=== PATIENT | male | born 1990 | race Hispanic/Latino ===

== ENCOUNTER 2017-04-28 07:34 | Outpatient (CLI) | payer OTHER ==
[2017-04-28] MEDS ORDERED: PROVENTIL IH ONE (07:57)
== END 2017-04-28 07:35 | disposition home or self-care (01) ==
LOC: PF 07:34
PROVIDERS: ATTEND Internal Medicine
DX: I10 Essential (primary) hypertension (principal); E66.9 Obesity, unspecified; R06.02 Shortness of breath; F17.200 Nicotine dependence, unspecified, uncomplicated
CPT/HCPCS: 94060; 94640

== ENCOUNTER 2017-08-06 13:11 | Outpatient (CLI) | payer OTHER, MEDICAID ==
--- NOTE | 2017-08-06 14:19 | XRay Report ---
CHEST XRAY, 2 VIEWS: History: Obesity, hypoxia. Findings: There is mild cardiomegaly. Pulmonary vessels are within normal limits. The lungs are clear and fully expanded. No infiltrate, pleural effusion or pneumothorax. Normal thoracic cage. IMPRESSION: Mild cardiomegaly. Lungs clear.
== END 2017-08-06 13:12 | disposition home or self-care (01) ==
LOC: XRAY 13:11
PROVIDERS: ATTEND Internal Medicine Critical Care Medicine
DX: I51.7 Cardiomegaly (principal); E66.2 Morbid (severe) obesity with alveolar hypoventilation; R09.02 Hypoxemia
CPT/HCPCS: 71046; 82803

== ENCOUNTER 2017-08-07 16:13 | Inpatient (IN) | payer MEDICAID, OTHER ==
[2017-08-07] MEDS ORDERED: NACL 0.9% 500 ML 500 ML IV ONE ×2 (16:30→23:31)
[2017-08-07] MEDS ORDERED: TYLENOL PO ONE (16:31)
[2017-08-07] MEDS ORDERED: TYLENOL ONE (16:33)
[2017-08-07] MEDS ORDERED: ROCEPHIN/NS 2 GM/100 ML 2 GM/100 ML BAG IV ONE (16:44)
[2017-08-07] MEDS ORDERED: PROVENTIL IH ONE (16:45)
[2017-08-07] MEDS ORDERED: ATROVENT IH ONE (16:45)
--- NOTE | 2017-08-07 16:54 | Emergency Department Report ---
ED Shortness of Breath HPI - General Chief Complaint: Fever Stated Complaint: FLU LIKE SYMPTOMS/GENEVIEVE Time Seen by Provider: 08/07/17 16:38 Source: patient Mode of arrival: Wheelchair Limitations: No Limitations - History of Present Illness Initial Comments: Patient is a 26-year-old male with a past medical history of extreme morbid obesity diabetes asthma and lymphedema who is presenting with respiratory distress. The patient states for the past 2 days he has had increased cough congestion and some left-sided chest discomfort and fever. Patient has a productive cough of clear white sputum. Patient also is complaining of chills. Patient's family states that he is gained 78 pounds in the last 2 weeks and is retaining fluid as well. Patient was seen at urgent care several days ago and was discharged with no medications and was told that he was doing okay and this most likely he was having a viral issue. Patient was seen yesterday by primary care physician and a chest x-ray and ABG was performed yesterday. Patient states the shortness of breath worsened over the last 24 hours and is comfortable in the department at triage she was 78% on room air and was brought directly back. Patient also was tachycardic with a temperature 101.7. Patient's other complete other complaint is body aches all over. - Related Data Previous Rx's Medication Instructions Recorded Last Taken Type Acetaminophen/Codeine 1 tab PO Q6H PRN #20 tab 04/28/14 Unknown Rx [Acetaminophen-Codeine #3 TAB] Cephalexin [Keflex] 500 mg PO TID #30 capsule 04/28/14 Unknown Rx Sulfamethoxazole/Trimethoprim 1 each PO BID #20 tablet 04/28/14 Unknown Rx [Bactrim Ds] Allergies Allergy/AdvReac Type Severity Reaction Status Date / Time vancomycin Allergy Hives Verified 08/07/17 16:25 ED Review of Systems ROS: Stated complaint: FLU LIKE SYMPTOMS/GENEVIEVE Other details as noted in HPI Comment: All other systems reviewed and negative ED Past Medical Hx - Past Medical History Previous Medical History?: Yes Hx Diabetes: Yes (possible borderline DM) Hx Asthma: Yes Additional medical history: morbidly obese - Surgical History Past Surgical History?: No - Social History Smoking Status: Current Every Day Smoker Substance Use Type: None - Medications Home Medications: Home Medications Medication Instructions Recorded Confirmed Last Taken Type Acetaminophen/Codeine 1 tab PO Q6H PRN #20 tab 04/28/14 Unknown Rx [Acetaminophen-Codeine #3 TAB] Cephalexin [Keflex] 500 mg PO TID #30 capsule 04/28/14 Unknown Rx Sulfamethoxazole/Trimethoprim 1 each PO BID #20 tablet 04/28/14 Unknown Rx [Bactrim Ds] ED Physical Exam - General Limitations: No Limitations General appearance: alert, in distress, obese - Head Head exam: Present: atraumatic, normocephalic - Eye Eye exam: Present: normal appearance - ENT ENT exam: Present: mucous membranes moist - Neck Neck exam: Present: normal inspection - Respiratory Respiratory exam: Present: respiratory distress, wheezes, rhonchi, prolonged expiratory. Absent: normal lung sounds bilaterally, rales, stridor - Cardiovascular Cardiovascular Exam: Present: normal rhythm, tachycardia. Absent: systolic murmur, diastolic murmur, rubs, gallop - GI/Abdominal GI/Abdominal exam: Present: soft, distended, normal bowel sounds. Absent: tenderness, guarding, rebound - Rectal Rectal exam: Present: deferred - Extremities Exam Extremities exam: Present: other (bilateral 3+ edema with extreme swelling with Unna boots in place. Patient's family states he has does have some weeping sores on the legs) - Back Exam Back exam: Present: normal inspection - Neurological Exam Neurological exam: Present: alert, oriented X3 - Psychiatric Psychiatric exam: Present: normal affect, normal mood - Skin Skin exam: Present: warm, dry, intact, normal color. Absent: rash ED Course Vital Signs 08/07/17 16:25 Temperature 101.7 F H Pulse Rate 123 H Respiratory 24 Rate Blood Pressure 128/44 O2 Sat by Pulse 78 L Oximetry ED Medical Decision Making - Lab Data Result diagrams: 08/07/17 16:58 08/07/17 16:58 Lab Results 08/07/17 08/07/17 08/07/17 Range/Units 16:58 16:58 16:58 WBC 16.1 H (4.5-11.0) K/mm3 RBC 5.44 H (3.65-5.03) M/mm3 Hgb 11.9 (11.8-15.2) gm/dl Hct 40.4 (35.5-45.6) % MCV 74 L (84-94) fl MCH 22 L (28-32) pg MCHC 29 L (32-34) % RDW 21.7 H (13.2-15.2) % Plt Count 269 (140-440) K/mm3 Seg Neutrophils % Registered Representative PT 16.2 H (12.2-14.9) Sec. INR 1.23 H (0.87-1.13) VBG pH (7.320-7.420) Sodium 138 (137-145) mmol/L Potassium 4.1 (3.6-5.0) mmol/L Chloride 96.2 L (98-107) mmol/L Carbon Dioxide 31 H (22-30) mmol/L Anion Gap 15 mmol/L BUN 14 (9-20) mg/dL Creatinine 1.1 (0.8-1.5) mg/dL Estimated GFR > 60 ml/min BUN/Creatinine Ratio 13 % Glucose 97 (75-100) mg/dL Lactic Acid (0.7-2.0) mmol/L Calcium 8.6 (8.4-10.2) mg/dL Total Bilirubin 0.80 (0.1-1.2) mg/dL AST 18 (5-40) units/L ALT 20 (7-56) units/L Alkaline Phosphatase 84 (35-129) units/L Total Protein 5.8 L (6.3-8.2) g/dL Albumin 3.0 L (3.9-5) g/dL Albumin/Globulin Ratio 1.1 % 08/07/17 08/07/17 Range/Units 16:58 16:58 WBC (4.5-11.0) K/mm3 RBC (3.65-5.03) M/mm3 Hgb (11.8-15.2) gm/dl Hct (35.5-45.6) % MCV (84-94) fl MCH (28-32) pg MCHC (32-34) % RDW (13.2-15.2) % Plt Count (140-440) K/mm3 Seg Neutrophils % PT (12.2-14.9) Sec. INR (0.87-1.13) VBG pH 7.463 H (7.320-7.420) Sodium (137-145) mmol/L Potassium (3.6-5.0) mmol/L Chloride (98-107) mmol/L Carbon Dioxide (22-30) mmol/L Anion Gap mmol/L BUN (9-20) mg/dL Creatinine (0.8-1.5) mg/dL Estimated GFR ml/min BUN/Creatinine Ratio % Glucose (75-100) mg/dL Lactic Acid 2.10 H* (0.7-2.0) mmol/L Calcium (8.4-10.2) mg/dL Total Bilirubin (0.1-1.2) mg/dL AST (5-40) units/L ALT (7-56) units/L Alkaline Phosphatase (35-129) units/L Total Protein (6.3-8.2) g/dL Albumin (3.9-5) g/dL Albumin/Globulin Ratio % - EKG Data -: EKG Interpreted by Me EKG shows normal: axis, intervals, QRS complexes, ST-T waves Rate: tachycardia - EKG Data Interpretation: other (sinus tachycardia time of interpretation 1638) - Radiology Data Radiology results: image reviewed interpreted by me: Bibasilar infiltrates and cardiomegaly - Medical Decision Making Patient is a 26-year-old male who is presenting with fever and chest discomfort cough shortness of breath hypoxia. Patient's oxygenation is much improved on 2 L of oxygen. Patient does have infiltrates in the lung as well as an elevated white count and lactic acid level. Patient will be admitted to the hospital on the sepsis protocol of Dr. Perkins Critical Care Time: Yes Critical care time in (mins) excluding proc time.: 30 Critical care attestation.: If time is entered above; I have spent that time in minutes in the direct care of this critically ill patient, excluding procedure time. ED Disposition Clinical Impression: Hypoxia, Lymphedema Pneumonia Qualifiers: Pneumonia type: due to unspecified organism Laterality: bilateral Lung location : lower lobe of lung Qualified Code(s): J18.9 - Pneumonia, unspecified organism Sepsis Qualifiers: Sepsis type: sepsis due to unspecified organism Qualified Code(s): A41.9 - Sepsis, unspecified organism Disposition: OP ADMIT IP TO THIS HOSP Is pt being admited?: Yes Does the pt Need Aspirin: No Condition: Stable Instructions: Bacterial Pneumonia (ED)
[2017-08-07] MEDS ORDERED: NACL 0.9% 1000 ML IV ONE (16:59)
[2017-08-07 17:18] LABS: Mean Corpuscular HGB Conc 29 % (32-34); Mean Corpuscular Volume 74 fl (84-94); Platelet Count 269 K/mm3 (140-440); Red Blood Count 5.44 M/mm3 (3.65-5.03)
[2017-08-07 17:22] LABS: Hematocrit 40.4 % (35.5-45.6); Hemoglobin 11.9 gm/dl (11.8-15.2); Mean Corpuscular Hemoglobin 22 pg (28-32); Red Cell Distribution Width 21.7 % (13.2-15.2)
[2017-08-07 17:28] LABS: INR 1.23 (0.87-1.13)
[2017-08-07 17:41] LABS: Alanine Aminotransferase 20 units/L (7-56); BUN/Creatinine Ratio 13; Blood Urea Nitrogen 14 mg/dL (9-20); Calcium 8.6 mg/dL (8.4-10.2); Hemolysis Index 10
[2017-08-07] MEDS ORDERED: cefTRIAXone 2 GM in NACL 0.9% 20 ML IV ONE (18:00)
[2017-08-07] MEDS ORDERED: LEVAQUIN 750MG/150ML 750 MG/150 ML BAG IV ONE (18:16)
--- NOTE | 2017-08-07 18:32 | XRay Report ---
FINAL REPORT EXAM: XR CHEST 1V AP HISTORY: possible Sepsis TECHNIQUE: Frontal chest x-ray performed portably and upright Comparison: None FINDINGS: Exam is under penetrated. Heart size is mildly enlarged. AP window is obscured which may be positional. There is mild opacity in the left lung base with silhouetting of the medial left hemidiaphragm. Posterior costophrenic sulci cannot be assessed. There is minimal pulmonary vascular congestion. IMPRESSION: Incompletely penetrated portable exam. Mild cardiomegaly. Fullness of the AP window. Lung bases incompletely assessed. Left basilar consolidation may be present. Recommend follow-up two view chest.
[2017-08-07 18:39] LABS: Band Neutrophils # (Manual) 0.2 K/mm3; Eosinophils % (Manual) 0 % (0.0-4.3); Total Cells Counted 100
[2017-08-07 18:43] LABS: Anisocytosis 1+
[2017-08-07 18:44] LABS: Hypochromasia 1+; Platelet Estimate Consistent w Auto; Poikilocytosis 1+
--- NOTE | 2017-08-07 19:12 | History and Physical Report ---
History of Present Illness Chief complaint: I cant breathe History of present illness: 26 YO Male with Super Morbid Obeisty, DM, Asthma, Nicotine Dependence, Lymphedema, presents to ED for evaluation. Pt states that he has experienced shortness of breath, productive cough of clear sputum, subjective fever, and nasal congestion over the past 2 days with progressively worsening symptoms over that same time frame. Patient also is complaining of chills, as well as 78 pound weight gain in the past 2 week. Patient was seen at urgent care several days ago and was discharged with diagnosis of viral pharyngitis. Patient states the shortness of breath worsened over the last 24 hours. Pt seen and evaluted in ED and found to have fever to 101.7, Acute Respiratory Failure, as well as LLL Pneumonia. Pt treated with supplemental oxygen, nebulizer therapy , and pneumonia protocol. Pt admitted to medical floor. No reports of leg pain/ calf pain, prolonged travel/immobility, trauma, cancer, individual/family history of DVT/PE. Past History Past Medical History: diabetes, other (Asthma, Lymphedema) Past Surgical History: No surgical history, Other (reviewed) Social history: single, smoking. denies: alcohol abuse, prescription drug abuse Family history: hypertension Medications and Allergies Allergies Allergy/AdvReac Type Severity Reaction Status Date / Time vancomycin Allergy Hives Verified 08/07/17 16:25 Home Medications Medication Instructions Recorded Confirmed Last Taken Type Acetaminophen/Codeine 1 tab PO Q6H PRN #20 tab 04/28/14 Unknown Rx [Acetaminophen-Codeine #3 TAB] Cephalexin [Keflex] 500 mg PO TID #30 capsule 04/28/14 Unknown Rx Sulfamethoxazole/Trimethoprim 1 each PO BID #20 tablet 04/28/14 Unknown Rx [Bactrim Ds] Active Meds: Active Medications Levofloxacin/Dextrose (Levaquin 750mg/150ml) 750 mg in 150 mls @ 100 mls/hr IV ONCE ONE Stop: 08/07/17 19:45 Review of Systems Constitutional: weight gain, fever, chills Ears, nose, mouth and throat: no ear pain, no ear discharge, no tinnitis, no decreased hearing, no nose pain, no nasal congestion Cardiovascular: shortness of breath, no chest pain, no orthopnea, no dyspnea on exertion, no paroxysmal nocturnal dyspnea Respiratory: cough, congestion, no hemoptysis, no dyspnea on exertion Gastrointestinal: no abdominal pain, no nausea, no vomiting, no diarrhea Genitourinary Male: no hematuria, no flank pain, no discharge, no urinary frequency, no urinary hesitancy Rectal: no pain, no incontinence, no bleeding Musculoskeletal: no neck stiffness, no neck pain, no shooting arm pain, no arm numbness/tingling, no low back pain, no shooting leg pain Integumentary: no rash, no pruritis, no redness, no sores, no wounds Neurological: no transient paralysis, no paralysis, no weakness, no parathesias , no numbness, no tingling, no seizures, no syncope, no tremors Psychiatric: no anxiety, no change in sleep habits, no sleep disturbances, no insomnia, no hypersomnia, no change in appetite Endocrine: no cold intolerance, no heat intolerance, no polyphagia, no excessive thirst, no polydipsia, no polyuria, no nocturia Hematologic/Lymphatic: lymphedema, no easy bruising, no easy bleeding Allergic/Immunologic: no urticaria, no allergic rhinitis, no wheezing Exam - Constitutional Vitals: Temp Pulse Resp BP Pulse Ox 101.7 F H 123 H 24 128/44 78 L 08/07/17 16:25 08/07/17 16:25 08/07/17 16:25 08/07/17 16:25 08/07/17 16:25 General appearance: Present: mild distress, obese - EENT Eyes: Present: PERRL ENT: hearing intact, clear oral mucosa - Neck Neck: Present: supple, normal ROM - Respiratory Respiratory effort: labored Respiratory: bilateral: diminished, rhonchi - Cardiovascular Heart Sounds: Present: S1 & S2. Absent: rub, click - Extremities Extremities: pulses symmetrical, No edema Extremity abnormal: edema, deformity Peripheral Pulses: within normal limits - Abdominal General gastrointestinal: Present: soft, non-tender, non-distended, normal bowel sounds Male genitourinary: Present: normal - Integumentary Integumentary: Present: clear, warm, dry - Musculoskeletal Musculoskeletal: generalized weakness - Psychiatric Psychiatric: appropriate mood/affect, intact judgment & insight - Neurologic Neurologic: CNII-XII intact, moves all extremities Results - Labs CBC & Chem 7: 08/07/17 16:58 08/07/17 16:58 Labs: Abnormal lab results 0208/07/17 08/07/17 Range/Units 16:58 16:58 16:58 WBC 16.1 H (4.5-11.0) K/mm3 RBC 5.44 H (3.65-5.03) M/mm3 MCV 74 L (84-94) fl MCH 22 L (28-32) pg MCHC 29 L (32-34) % RDW 21.7 H (13.2-15.2) % Seg Neuts % (Manual) 87.0 H (40.0-70.0) % Lymphocytes % (Manual) 7.0 L (13.4-35.0) % Basophils % (Manual) 2.0 H (0.0-1.8) % Seg Neutrophils # Man 14.0 H (1.8-7.7) K/mm3 Lymphocytes # (Manual) 1.1 L (1.2-5.4) K/mm3 Basophils # (Manual) 0.3 H (0.0-0.1) K/mm3 PT 16.2 H (12.2-14.9) Sec. INR 1.23 H (0.87-1.13) VBG pH (7.320-7.420) Chloride 96.2 L (98-107) mmol/L Carbon Dioxide 31 H (22-30) mmol/L Lactic Acid (0.7-2.0) mmol/L Total Protein 5.8 L (6.3-8.2) g/dL Albumin 3.0 L (3.9-5) g/dL 08/07/17 08/07/17 Range/Units 16:58 16:58 WBC (4.5-11.0) K/mm3 RBC (3.65-5.03) M/mm3 MCV (84-94) fl MCH (28-32) pg MCHC (32-34) % RDW (13.2-15.2) % Seg Neuts % (Manual) (40.0-70.0) % Lymphocytes % (Manual) (13.4-35.0) % Basophils % (Manual) (0.0-1.8) % Seg Neutrophils # Man (1.8-7.7) K/mm3 Lymphocytes # (Manual) (1.2-5.4) K/mm3 Basophils # (Manual) (0.0-0.1) K/mm3 PT (12.2-14.9) Sec. INR (0.87-1.13) VBG pH 7.463 H (7.320-7.420) Chloride (98-107) mmol/L Carbon Dioxide (22-30) mmol/L Lactic Acid 2.10 H* (0.7-2.0) mmol/L Total Protein (6.3-8.2) g/dL Albumin (3.9-5) g/dL Assessment and Plan - Patient Problems (1) Sepsis Current Visit: Yes Status: Acute Qualifiers: Sepsis type: sepsis due to unspecified organism Qualified Code(s): A41.9 - Sepsis, unspecified organism Plan to address problem: IV abx, IVF resuscitation, serial lactic acid, blood cultures, monitor uop q shift, Chest X ray, urinalysis (2) Pneumonia Current Visit: Yes Status: Acute Qualifiers: Laterality: left Lung location: lower lobe of lung Plan to address problem: IV abx, nebulizer thrapy, NIPPV as clinically indicated, supplemental oxygen, (3) Acute respiratory failure with hypoxia Current Visit: Yes Status: Acute Plan to address problem: Supplemental oxygen, nebulizer therapy, incentive spirometry, ambulate TID prn, NIPPV as clinically indicated. (4) Lymphedema Current Visit: Yes Status: Acute Plan to address problem: Wound care consult, continue dressing care, (5) DVT prophylaxis Current Visit: Yes Status: Acute
[2017-08-07] MEDS ORDERED: MILK OF MAGNESIA PO PRN (19:14)
[2017-08-07] MEDS ORDERED: ZOFRAN IV PRN (19:14)
[2017-08-07] MEDS ORDERED: DULCOLAX PR PRN (19:14)
[2017-08-07] MEDS: ZITHROMAX 500 MG in NACL 0.9% 250ML 250 ML IV SCH (21:41)
[2017-08-08] MEDS: NACL 0.9% 1000 ML 1,000 ML IV SCH ×2 (04:51→23:33)
[2017-08-08] MEDS ORDERED: ROCEPHIN/NS 2 GM/100 ML 2 GM/100 ML BAG IV SCH (10:00)
--- NOTE | 2017-08-08 10:38 | Progress Note ---
Assessment and Plan Assessment and plan: --Acute hypoxic respiratory failure; Oxygen titrated to O2 sats more than 90%, nebulizers, IV antibiotics, BiPAP as needed, IV steroids --Congestive heart failure; unknown ejection fraction, probably diastolic dysfunction, obtain echocardiogram --Left lower lobe pneumonia/atelectasis; empiric antibiotics, oxygen and supportive care, follow cultures --Sepsis; continue empiric antibiotics, follow cultures, IV fluids --Lactic acidosis; continue IV fluids, IV antibiotics, follow levels --Possible obstructive sleep apnea; patient may need outpatient sleep studies, BiPAP at night --Chronic massive lymphedema; supportive care, wound care and lymphedema case as needed --Morbid obesity; BMI of 82; counseling done, patient may benefit from bariatric surgical consultation or weight reduction program when medically stable --DVT prophylaxis; Lovenox Closely monitor the patient and adjust management as needed Plan of care discussed with the patient and his nurse I also discussed with the family member uncle at the bedside Had numerous questions, answered all of them History Interval history: Patient seen and evaluated in room this morning medical records reviewed Admitted with flulike symptoms and left-sided pneumonia On IV antibiotics Patient denies any chest pain or shortness of breath Morbid obese 26-year-old male patient with chronic lymphedema Sitting in the chair in mild distress Vital signs reviewed Hospitalist Physical - Constitutional Vitals: Temp Pulse Resp BP Pulse Ox 98.6 F 79 18 108/53 95 08/08/17 07:33 08/08/17 07:33 08/08/17 07:33 08/08/17 07:33 08/08/17 07:33 General appearance: Present: mild distress, obese (morbidly obese), other - EENT Eyes: Present: PERRL, EOM intact - Neck Neck: Present: supple, normal ROM - Respiratory Respiratory effort: normal Respiratory: bilateral: diminished, rhonchi, negative: rales, wheezing - Cardiovascular Rhythm: regular Heart Sounds: Present: S1 & S2 - Extremities Extremities: abnormal (massive lymphedema of bilateral lower extremities) Extremity abnormal: edema, erythema - Abdominal General gastrointestinal: soft, non-tender, non-distended, normal bowel sounds - Integumentary Integumentary: Present: clear, warm - Psychiatric Psychiatric: appropriate mood/affect, cooperative - Neurologic Neurologic: CNII-XII intact, moves all extremities Results - Labs CBC & Chem 7: 08/07/17 16:58 08/07/17 16:58 Labs: Laboratory Last Values WBC 16.1 K/mm3 (4.5-11.0) H 08/07/17 16:58 RBC 5.44 M/mm3 (3.65-5.03) H 08/07/17 16:58 Hgb 11.9 gm/dl (11.8-15.2) 08/07/17 16:58 Hct 40.4 % (35.5-45.6) 08/07/17 16:58 MCV 74 fl (84-94) L 08/07/17 16:58 MCH 22 pg (28-32) L 08/07/17 16:58 MCHC 29 % (32-34) L 08/07/17 16:58 RDW 21.7 % (13.2-15.2) H 08/07/17 16:58 Plt Count 269 K/mm3 (140-440) 08/07/17 16:58 Add Manual Diff Complete 08/07/17 16:58 Total Counted 100 08/07/17 16:58 Seg Neutrophils % Lead Systems Engineer 08/07/17 16:58 Seg Neuts % (Manual) 87.0 % (40.0-70.0) H 08/07/17 16:58 Band Neutrophils % 1.0 % 08/07/17 16:58 Lymphocytes % (Manual) 7.0 % (13.4-35.0) L 08/07/17 16:58 Reactive Lymphs % (Man) 0 % 08/07/17 16:58 Monocytes % (Manual) 3.0 % (0.0-7.3) 08/07/17 16:58 Eosinophils % (Manual) 0 % (0.0-4.3) 08/07/17 16:58 Basophils % (Manual) 2.0 % (0.0-1.8) H 08/07/17 16:58 Metamyelocytes % 0 % 08/07/17 16:58 Myelocytes % 0 % 08/07/17 16:58 Promyelocytes % 0 % 08/07/17 16:58 Blast Cells % 0 % 08/07/17 16:58 Nucleated RBC % Not Reportable 08/07/17 16:58 Seg Neutrophils # Man 14.0 K/mm3 (1.8-7.7) H 08/07/17 16:58 Band Neutrophils # 0.2 K/mm3 08/07/17 16:58 Lymphocytes # (Manual) 1.1 K/mm3 (1.2-5.4) L 08/07/17 16:58 Abs React Lymphs (Man) 0.0 K/mm3 08/07/17 16:58 Monocytes # (Manual) 0.5 K/mm3 (0.0-0.8) 08/07/17 16:58 Eosinophils # (Manual) 0.0 K/mm3 (0.0-0.4) 08/07/17 16:58 Basophils # (Manual) 0.3 K/mm3 (0.0-0.1) H 08/07/17 16:58 Metamyelocytes # 0.0 K/mm3 08/07/17 16:58 Myelocytes # 0.0 K/mm3 08/07/17 16:58 Promyelocytes # 0.0 K/mm3 08/07/17 16:58 Blast Cells # 0.0 K/mm3 08/07/17 16:58 WBC Morphology Not Reportable 08/07/17 16:58 Hypersegmented Neuts Not Reportable 08/07/17 16:58 Hyposegmented Neuts Not Reportable 08/07/17 16:58 Hypogranular Neuts Not Reportable 08/07/17 16:58 Smudge Cells Not Reportable 08/07/17 16:58 Toxic Granulation Not Reportable 08/07/17 16:58 Toxic Vacuolation Not Reportable 08/07/17 16:58 Dohle Bodies Not Reportable 08/07/17 16:58 Pelger-Huet Anomaly Not Reportable 08/07/17 16:58 Noa Rods Not Reportable 08/07/17 16:58 Platelet Estimate Consistent w auto 08/07/17 16:58 Clumped Platelets Not Reportable 08/07/17 16:58 Plt Clumps, EDTA Not Reportable 08/07/17 16:58 Large Platelets Not Reportable 08/07/17 16:58 Giant Platelets Not Reportable 08/07/17 16:58 Platelet Satelliting Not Reportable 08/07/17 16:58 Plt Morphology Comment Not Reportable 08/07/17 16:58 RBC Morphology Not Reportable 08/07/17 16:58 Dimorphic RBCs Not Reportable 08/07/17 16:58 Polychromasia Not Reportable 08/07/17 16:58 Hypochromasia 1+ 08/07/17 16:58 Poikilocytosis 1+ 08/07/17 16:58 Anisocytosis 1+ 08/07/17 16:58 Microcytosis Not Reportable 08/07/17 16:58 Macrocytosis Not Reportable 08/07/17 16:58 Spherocytes Not Reportable 08/07/17 16:58 Pappenheimer Bodies Not Reportable 08/07/17 16:58 Sickle Cells Not Reportable 08/07/17 16:58 Target Cells Not Reportable 08/07/17 16:58 Tear Drop Cells Not Reportable 08/07/17 16:58 Ovalocytes Not Reportable 08/07/17 16:58 Helmet Cells Not Reportable 08/07/17 16:58 [place] Bodies Not Reportable 08/07/17 16:58 [place] Rings Not Reportable 08/07/17 16:58 [place] Cells Not Reportable 08/07/17 16:58 Bite Cells Not Reportable 08/07/17 16:58 Crenated Cell Not Reportable 08/07/17 16:58 Elliptocytes Not Reportable 08/07/17 16:58 Acanthocytes (Spur) Not Reportable 08/07/17 16:58 Rouleaux Not Reportable 08/07/17 16:58 Hemoglobin C Crystals Not Reportable 08/07/17 16:58 Schistocytes Not Reportable 08/07/17 16:58 Malaria parasites Not Reportable 08/07/17 16:58 Cuco Bodies Not Reportable 08/07/17 16:58 Hem Pathologist Commnt No 08/07/17 16:58 PT 16.2 Sec. (12.2-14.9) H 08/07/17 16:58 INR 1.23 (0.87-1.13) H 08/07/17 16:58 VBG pH 7.463 (7.320-7.420) H 08/07/17 16:58 Sodium 138 mmol/L (137-145) 08/07/17 16:58 Potassium 4.1 mmol/L (3.6-5.0) 08/07/17 16:58 Chloride 96.2 mmol/L (98-107) L 08/07/17 16:58 Carbon Dioxide 31 mmol/L (22-30) H 08/07/17 16:58 Anion Gap 15 mmol/L 08/07/17 16:58 BUN 14 mg/dL (9-20) 08/07/17 16:58 Creatinine 1.1 mg/dL (0.8-1.5) 08/07/17 16:58 Estimated GFR > 60 ml/min 08/07/17 16:58 BUN/Creatinine Ratio 13 % 08/07/17 16:58 Glucose 97 mg/dL (75-100) 08/07/17 16:58 Lactic Acid 0.90 mmol/L (0.7-2.0) 08/08/17 06:01 Calcium 8.6 mg/dL (8.4-10.2) 08/07/17 16:58 Total Bilirubin 0.80 mg/dL (0.1-1.2) 08/07/17 16:58 AST 18 units/L (5-40) 08/07/17 16:58 ALT 20 units/L (7-56) 08/07/17 16:58 Alkaline Phosphatase 84 units/L (35-129) 08/07/17 16:58 NT-Pro-B Natriuret Pep 2205 pg/mL (0-450) H 08/07/17 16:58 Total Protein 5.8 g/dL (6.3-8.2) L 08/07/17 16:58 Albumin 3.0 g/dL (3.9-5) L 08/07/17 16:58 Albumin/Globulin Ratio 1.1 % 08/07/17 16:58
[2017-08-08] MEDS ORDERED: Fluarix Quad 2017-2018(36 MOS+ IM ONE (12:00)
[2017-08-08] MEDS ORDERED: PNEUMOVAX 23 IM ONE (12:00)
[2017-08-08] MEDS: cefTRIAXone 2 GM in NACL 0.9% 20 ML IV SCH (18:51)
[2017-08-08] MEDS: ZITHROMAX 500 MG in NACL 0.9% 250ML 250 ML IV SCH (23:32)
[2017-08-08] MEDS: LASIX PO SCH (23:33)
[2017-08-09] MEDS: TYLENOL PO PRN (04:50)
--- NOTE | 2017-08-09 09:20 | Progress Note ---
Assessment and Plan Assessment and plan: --Acute hypoxic respiratory failure; Oxygen titrated to O2 sats more than 90%, nebulizers, IV antibiotics, BiPAP as needed, IV steroids --Congestive heart failure; unknown ejection fraction, probably diastolic dysfunction, obtain echocardiogram, anti-failure medications as tolerated --Left lower lobe pneumonia/atelectasis; empiric antibiotics, oxygen and supportive care, follow cultures --Sepsis; continue empiric antibiotics, follow cultures, IV fluids --Lactic acidosis; continue IV fluids, IV antibiotics, follow levels --Possible obstructive sleep apnea/obesity hypoventilation syndrome; patient may need outpatient sleep studies, BiPAP at night Oxygen titrated to O2 sats more than 90%, duo nebs, consider pulmonary evaluation if needed --Chronic massive lymphedema; supportive care, wound care and lymphedema case as needed Lower extremity and left upper extremity venous Doppler to rule out DVT --Morbid obesity; BMI of 82; counseling done, patient may benefit from bariatric surgical consultation or weight reduction program when medically stable --Physical therapy occupational therapy Closely monitor the patient and adjust management as needed Patient's condition and treatment plan reviewed with the patient, his nurse and the family member at bedside Answered all their questions History Interval history: Patient seen and evaluated medical records reviewed Family members at bedside Feels slightly better, still complains of mild shortness of breath Wound Care, chronic lymphedema care following the patient Alert awake oriented 3 Vital signs reviewed Hospitalist Physical - Constitutional Vitals: Temp Pulse Resp BP Pulse Ox 98.4 F 71 16 98/39 97 08/08/17 23:26 08/08/17 23:26 08/08/17 23:26 08/08/17 23:26 08/08/17 23:26 General appearance: Present: mild distress, obese (morbidly obese) - EENT Eyes: Present: PERRL, EOM intact - Neck Neck: Present: supple, normal ROM - Respiratory Respiratory effort: normal Respiratory: bilateral: diminished, rales - Cardiovascular Rhythm: regular Heart Sounds: Present: S1 & S2 - Extremities Extremities: abnormal (massive lymphedema lower extremities more than upper extremities) Extremity abnormal: edema, other (chronic lymphedema) - Abdominal General gastrointestinal: soft, non-tender, non-distended, normal bowel sounds - Integumentary Integumentary: Present: clear, warm - Neurologic Neurologic: moves all extremities Results - Labs CBC & Chem 7: 08/09/17 10:57 08/09/17 13:37 Labs: Laboratory Last Values WBC 16.1 K/mm3 (4.5-11.0) H 08/07/17 16:58 RBC 5.44 M/mm3 (3.65-5.03) H 08/07/17 16:58 Hgb 11.9 gm/dl (11.8-15.2) 08/07/17 16:58 Hct 40.4 % (35.5-45.6) 08/07/17 16:58 MCV 74 fl (84-94) L 08/07/17 16:58 MCH 22 pg (28-32) L 08/07/17 16:58 MCHC 29 % (32-34) L 08/07/17 16:58 RDW 21.7 % (13.2-15.2) H 08/07/17 16:58 Plt Count 269 K/mm3 (140-440) 08/07/17 16:58 Add Manual Diff Complete 08/07/17 16:58 Total Counted 100 08/07/17 16:58 Seg Neutrophils % Assigner 08/07/17 16:58 Seg Neuts % (Manual) 87.0 % (40.0-70.0) H 08/07/17 16:58 Band Neutrophils % 1.0 % 08/07/17 16:58 Lymphocytes % (Manual) 7.0 % (13.4-35.0) L 08/07/17 16:58 Reactive Lymphs % (Man) 0 % 08/07/17 16:58 Monocytes % (Manual) 3.0 % (0.0-7.3) 08/07/17 16:58 Eosinophils % (Manual) 0 % (0.0-4.3) 08/07/17 16:58 Basophils % (Manual) 2.0 % (0.0-1.8) H 08/07/17 16:58 Metamyelocytes % 0 % 08/07/17 16:58 Myelocytes % 0 % 08/07/17 16:58 Promyelocytes % 0 % 08/07/17 16:58 Blast Cells % 0 % 08/07/17 16:58 Nucleated RBC % Not Reportable 08/07/17 16:58 Seg Neutrophils # Man 14.0 K/mm3 (1.8-7.7) H 08/07/17 16:58 Band Neutrophils # 0.2 K/mm3 08/07/17 16:58 Lymphocytes # (Manual) 1.1 K/mm3 (1.2-5.4) L 08/07/17 16:58 Abs React Lymphs (Man) 0.0 K/mm3 08/07/17 16:58 Monocytes # (Manual) 0.5 K/mm3 (0.0-0.8) 08/07/17 16:58 Eosinophils # (Manual) 0.0 K/mm3 (0.0-0.4) 08/07/17 16:58 Basophils # (Manual) 0.3 K/mm3 (0.0-0.1) H 08/07/17 16:58 Metamyelocytes # 0.0 K/mm3 08/07/17 16:58 Myelocytes # 0.0 K/mm3 08/07/17 16:58 Promyelocytes # 0.0 K/mm3 08/07/17 16:58 Blast Cells # 0.0 K/mm3 08/07/17 16:58 WBC Morphology Not Reportable 08/07/17 16:58 Hypersegmented Neuts Not Reportable 08/07/17 16:58 Hyposegmented Neuts Not Reportable 08/07/17 16:58 Hypogranular Neuts Not Reportable 08/07/17 16:58 Smudge Cells Not Reportable 08/07/17 16:58 Toxic Granulation Not Reportable 08/07/17 16:58 Toxic Vacuolation Not Reportable 08/07/17 16:58 Dohle Bodies Not Reportable 08/07/17 16:58 Pelger-Huet Anomaly Not Reportable 08/07/17 16:58 Noa Rods Not Reportable 08/07/17 16:58 Platelet Estimate Consistent w auto 08/07/17 16:58 Clumped Platelets Not Reportable 08/07/17 16:58 Plt Clumps, EDTA Not Reportable 08/07/17 16:58 Large Platelets Not Reportable 08/07/17 16:58 Giant Platelets Not Reportable 08/07/17 16:58 Platelet Satelliting Not Reportable 08/07/17 16:58 Plt Morphology Comment Not Reportable 08/07/17 16:58 RBC Morphology Not Reportable 08/07/17 16:58 Dimorphic RBCs Not Reportable 08/07/17 16:58 Polychromasia Not Reportable 08/07/17 16:58 Hypochromasia 1+ 08/07/17 16:58 Poikilocytosis 1+ 08/07/17 16:58 Anisocytosis 1+ 08/07/17 16:58 Microcytosis Not Reportable 08/07/17 16:58 Macrocytosis Not Reportable 08/07/17 16:58 Spherocytes Not Reportable 08/07/17 16:58 Pappenheimer Bodies Not Reportable 08/07/17 16:58 Sickle Cells Not Reportable 08/07/17 16:58 Target Cells Not Reportable 08/07/17 16:58 Tear Drop Cells Not Reportable 08/07/17 16:58 Ovalocytes Not Reportable 08/07/17 16:58 Helmet Cells Not Reportable 08/07/17 16:58 [place] Bodies Not Reportable 08/07/17 16:58 [place] Rings Not Reportable 08/07/17 16:58 [place] Cells Not Reportable 08/07/17 16:58 Bite Cells Not Reportable 08/07/17 16:58 Crenated Cell Not Reportable 08/07/17 16:58 Elliptocytes Not Reportable 08/07/17 16:58 Acanthocytes (Spur) Not Reportable 08/07/17 16:58 Rouleaux Not Reportable 08/07/17 16:58 Hemoglobin C Crystals Not Reportable 08/07/17 16:58 Schistocytes Not Reportable 08/07/17 16:58 Malaria parasites Not Reportable 08/07/17 16:58 Cuco Bodies Not Reportable 08/07/17 16:58 Hem Pathologist Commnt No 08/07/17 16:58 PT 16.2 Sec. (12.2-14.9) H 08/07/17 16:58 INR 1.23 (0.87-1.13) H 08/07/17 16:58 VBG pH 7.463 (7.320-7.420) H 08/07/17 16:58 Sodium 138 mmol/L (137-145) 08/07/17 16:58 Potassium 4.1 mmol/L (3.6-5.0) 08/07/17 16:58 Chloride 96.2 mmol/L (98-107) L 08/07/17 16:58 Carbon Dioxide 31 mmol/L (22-30) H 08/07/17 16:58 Anion Gap 15 mmol/L 08/07/17 16:58 BUN 14 mg/dL (9-20) 08/07/17 16:58 Creatinine 1.1 mg/dL (0.8-1.5) 08/07/17 16:58 Estimated GFR > 60 ml/min 08/07/17 16:58 BUN/Creatinine Ratio 13 % 08/07/17 16:58 Glucose 97 mg/dL (75-100) 08/07/17 16:58 Lactic Acid 0.90 mmol/L (0.7-2.0) 08/08/17 06:01 Calcium 8.6 mg/dL (8.4-10.2) 08/07/17 16:58 Total Bilirubin 0.80 mg/dL (0.1-1.2) 08/07/17 16:58 AST 18 units/L (5-40) 08/07/17 16:58 ALT 20 units/L (7-56) 08/07/17 16:58 Alkaline Phosphatase 84 units/L (35-129) 08/07/17 16:58 NT-Pro-B Natriuret Pep 2205 pg/mL (0-450) H 08/07/17 16:58 Total Protein 5.8 g/dL (6.3-8.2) L 08/07/17 16:58 Albumin 3.0 g/dL (3.9-5) L 08/07/17 16:58 Albumin/Globulin Ratio 1.1 % 08/07/17 16:58
[2017-08-09] MEDS: LASIX PO SCH (10:05)
[2017-08-09 12:04] LABS: Hematocrit 35.1 % (35.5-45.6); Hemoglobin 10.8 gm/dl (11.8-15.2); Mean Corpuscular HGB Conc 31 % (32-34); Mean Corpuscular Hemoglobin 23 pg (28-32); Mean Corpuscular Volume 74 fl (84-94); Platelet Count 195 K/mm3 (140-440); Red Blood Count 4.73 M/mm3 (3.65-5.03); Red Cell Distribution Width 21.2 % (13.2-15.2)
[2017-08-09 12:22] LABS: Anisocytosis 1+; Band Neutrophils # (Manual) 0.6 K/mm3; Basophils % (Manual) 0 % (0.0-1.8); Total Cells Counted 100
[2017-08-09 12:23] LABS: Giant Platelets Few; Hypochromasia 1+; Ovalocytes Few; Platelet Estimate Consistent w Auto; Poikilocytosis 1+; Stomatocytes 1+
[2017-08-09 12:38] LABS: BUN/Creatinine Ratio TNR; Blood Urea Nitrogen TNR mg/dL (9-20)
[2017-08-09 12:39] LABS: Calcium TNR mg/dL (8.4-10.2); Hemolysis Index TNR
[2017-08-09 14:45] LABS: BUN/Creatinine Ratio 11; Blood Urea Nitrogen 11 mg/dL (9-20); Calcium 8.3 mg/dL (8.4-10.2); Hemolysis Index 9
--- NOTE | 2017-08-09 15:33 | XRay Report ---
FINAL REPORT EXAM: XR CHEST 1V AP HISTORY: shortness of breath/ possible pneumonia TECHNIQUE: Frontal chest x-ray Comparison: 08/07 FINDINGS: Again identified is moderate cardiomegaly. Exam is under penetrated. AP window is full as previously. There is improved penetration of the left lung base without silhouetting of the hemidiaphragm. Pulmonary vascularity is mildly prominent. No definite developing infiltrate. IMPRESSION: Stable mild cardiomegaly and mild pulmonary vascular prominence without definite developing pneumonia. Recommend two view chest due to patient body habitus.
[2017-08-09] MEDS: cefTRIAXone 2 GM in NACL 0.9% 20 ML IV SCH (17:12)
[2017-08-09] MEDS: ZITHROMAX 500 MG in NACL 0.9% 250ML 250 ML IV SCH (21:57)
[2017-08-10] MEDS: NACL 0.9% 1000 ML 1,000 ML IV SCH (07:08)
[2017-08-10 08:20] LABS: Basophils # (Auto) 0.1 K/mm3 (0.0-0.1); Basophils % (Auto) 0.5 % (0.0-1.8); Eosinophils # (Auto) 0.2 K/mm3 (0.0-0.4); Eosinophils % (Auto) 1.9 % (0.0-4.3); Lymphocytes # (Auto) 1.5 K/mm3 (1.2-5.4); Lymphocytes % (Auto) 15.4 % (13.4-35.0); Mean Corpuscular HGB Conc 30 % (32-34); Mean Corpuscular Volume 76 fl (84-94); Monocytes # (Auto) 0.7 K/mm3 (0.0-0.8); Monocytes % (Auto) 6.8 % (0.0-7.3); Platelet Count 220 K/mm3 (140-440); Red Blood Count 4.77 M/mm3 (3.65-5.03)
[2017-08-10 08:24] LABS: Hematocrit 36.1 % (35.5-45.6); Hemoglobin 10.8 gm/dl (11.8-15.2); Mean Corpuscular Hemoglobin 23 pg (28-32)
[2017-08-10 08:45] LABS: BUN/Creatinine Ratio 12; Blood Urea Nitrogen 11 mg/dL (9-20); Calcium 8.7 mg/dL (8.4-10.2); Hemolysis Index 0
[2017-08-10 08:55] LABS: Free T4 (Free Thyroxine) 0.8 ng/dL (0.76-1.46)
[2017-08-10] MEDS: LASIX PO SCH (09:25)
[2017-08-10] MEDS: TYLENOL PO PRN (09:28)
--- NOTE | 2017-08-10 11:27 | Progress Note ---
Assessment and Plan Assessment and plan: --Acute hypoxic hypercapnic respiratory failure; Oxygen titrated to O2 sats more than 90%, nebulizers, IV antibiotics, BiPAP as needed, IV steroids --Congestive heart failure; echocardiogram findings reviewed ejection fraction 40- 45%, severe pulmonary hypertension --Severe pulmonary hypertension on echocardiogram; diuretics, fluid restriction , pulmonary consultation, discussed with Dr. Goel --Left lower lobe pneumonia/atelectasis; empiric antibiotics, oxygen and supportive care, follow cultures --Sepsis; continue empiric antibiotics, follow cultures, IV fluids --Lactic acidosis; continue IV fluids, IV antibiotics, follow levels --Possible obstructive sleep apnea/obesity hypoventilation syndrome; patient may need outpatient sleep studies, BiPAP at night Oxygen, duo nebs, pulmonary consultation --Chronic massive lymphedema; supportive care, wound care and lymphedema case as needed Lower extremity and left upper extremity venous Doppler to rule out DVT --Morbid obesity; BMI of 82; counseling done, patient may benefit from bariatric surgical consultation or weight reduction program when medically stable --Physical therapy occupational therapy --Discharge planning. Case management, possible home with home health when patient is stable History Interval history: Patient seen and evaluated medical records reviewed Feels slightly better today, denies any chest pain has mild shortness of breath On nasal cannula oxygen Alert awake oriented 3 Not in acute distress Hospitalist Physical - Constitutional Vitals: Temp Pulse Resp BP Pulse Ox 98.8 F 85 24 105/54 94 08/10/17 07:13 08/10/17 07:13 08/10/17 07:13 08/10/17 07:13 08/10/17 07:13 General appearance: Present: mild distress, obese (morbidly obese) - EENT Eyes: Present: PERRL, EOM intact - Neck Neck: Present: supple, normal ROM - Respiratory Respiratory effort: normal Respiratory: bilateral: diminished, rhonchi, negative: rales, wheezing - Cardiovascular Rhythm: regular Heart Sounds: Present: S1 & S2 - Extremities Extremities: abnormal (massive lymphedema with skin breakage) Extremity abnormal: edema - Abdominal General gastrointestinal: soft, non-tender, non-distended, normal bowel sounds - Integumentary Integumentary: Present: clear, warm - Psychiatric Psychiatric: appropriate mood/affect, cooperative - Neurologic Neurologic: CNII-XII intact, moves all extremities Results - Labs CBC & Chem 7: 08/10/17 08:04 08/10/17 08:04 Labs: Laboratory Last Values WBC 9.6 K/mm3 (4.5-11.0) 08/10/17 08:04 RBC 4.77 M/mm3 (3.65-5.03) 08/10/17 08:04 Hgb 10.8 gm/dl (11.8-15.2) L 08/10/17 08:04 Hct 36.1 % (35.5-45.6) 08/10/17 08:04 MCV 76 fl (84-94) L 08/10/17 08:04 MCH 23 pg (28-32) L 08/10/17 08:04 MCHC 30 % (32-34) L 08/10/17 08:04 RDW 21.0 % (13.2-15.2) H 08/10/17 08:04 Plt Count 220 K/mm3 (140-440) 08/10/17 08:04 Lymph % (Auto) 15.4 % (13.4-35.0) 08/10/17 08:04 [place] % (Auto) 6.8 % (0.0-7.3) 08/10/17 08:04 Eos % (Auto) 1.9 % (0.0-4.3) 08/10/17 08:04 Baso % (Auto) 0.5 % (0.0-1.8) 08/10/17 08:04 Lymph # 1.5 K/mm3 (1.2-5.4) 08/10/17 08:04 [place] # 0.7 K/mm3 (0.0-0.8) 08/10/17 08:04 Eos # 0.2 K/mm3 (0.0-0.4) 08/10/17 08:04 Baso # 0.1 K/mm3 (0.0-0.1) 08/10/17 08:04 Add Manual Diff Complete 08/09/17 10:57 Total Counted 100 08/09/17 10:57 Seg Neutrophils % 75.4 % (40.0-70.0) H 08/10/17 08:04 Seg Neuts % (Manual) 64.0 % (40.0-70.0) 08/09/17 10:57 Band Neutrophils % 4.0 % 08/09/17 10:57 Lymphocytes % (Manual) 15.0 % (13.4-35.0) 08/09/17 10:57 Reactive Lymphs % (Man) 3.0 % 08/09/17 10:57 Monocytes % (Manual) 9.0 % (0.0-7.3) H 08/09/17 10:57 Eosinophils % (Manual) 5.0 % (0.0-4.3) H 08/09/17 10:57 Basophils % (Manual) 0 % (0.0-1.8) 08/09/17 10:57 Metamyelocytes % 0 % 08/09/17 10:57 Myelocytes % 0 % 08/09/17 10:57 Promyelocytes % 0 % 08/09/17 10:57 Blast Cells % 0 % 08/09/17 10:57 Nucleated RBC % Not Reportable 08/09/17 10:57 Seg Neutrophils # 7.3 K/mm3 (1.8-7.7) 08/10/17 08:04 Seg Neutrophils # Man 9.3 K/mm3 (1.8-7.7) H 08/09/17 10:57 Band Neutrophils # 0.6 K/mm3 08/09/17 10:57 Lymphocytes # (Manual) 2.2 K/mm3 (1.2-5.4) 08/09/17 10:57 Abs React Lymphs (Man) 0.4 K/mm3 08/09/17 10:57 Monocytes # (Manual) 1.3 K/mm3 (0.0-0.8) H 08/09/17 10:57 Eosinophils # (Manual) 0.7 K/mm3 (0.0-0.4) H 08/09/17 10:57 Basophils # (Manual) 0.0 K/mm3 (0.0-0.1) 08/09/17 10:57 Metamyelocytes # 0.0 K/mm3 08/09/17 10:57 Myelocytes # 0.0 K/mm3 08/09/17 10:57 Promyelocytes # 0.0 K/mm3 08/09/17 10:57 Blast Cells # 0.0 K/mm3 08/09/17 10:57 WBC Morphology Not Reportable 08/09/17 10:57 Hypersegmented Neuts Not Reportable 08/09/17 10:57 Hyposegmented Neuts Not Reportable 08/09/17 10:57 Hypogranular Neuts Not Reportable 08/09/17 10:57 Smudge Cells Not Reportable 08/09/17 10:57 Toxic Granulation Not Reportable 08/09/17 10:57 Toxic Vacuolation Not Reportable 08/09/17 10:57 Dohle Bodies Not Reportable 08/09/17 10:57 Pelger-Huet Anomaly Not Reportable 08/09/17 10:57 Noa Rods Not Reportable 08/09/17 10:57 Platelet Estimate Consistent w auto 08/09/17 10:57 Clumped Platelets Not Reportable 08/09/17 10:57 Plt Clumps, EDTA Not Reportable 08/09/17 10:57 Large Platelets Not Reportable 08/09/17 10:57 Giant Platelets Few 08/09/17 10:57 Platelet Satelliting Not Reportable 08/09/17 10:57 Plt Morphology Comment Not Reportable 08/09/17 10:57 RBC Morphology Not Reportable 08/09/17 10:57 Dimorphic RBCs Not Reportable 08/09/17 10:57 Polychromasia Not Reportable 08/09/17 10:57 Hypochromasia 1+ 08/09/17 10:57 Poikilocytosis 1+ 08/09/17 10:57 Anisocytosis 1+ 08/09/17 10:57 Microcytosis 1+ 08/09/17 10:57 Macrocytosis Not Reportable 08/09/17 10:57 Spherocytes Not Reportable 08/09/17 10:57 Pappenheimer Bodies Not Reportable 08/09/17 10:57 Sickle Cells Not Reportable 08/09/17 10:57 Target Cells Not Reportable 08/09/17 10:57 Tear Drop Cells Not Reportable 08/09/17 10:57 Ovalocytes Few 08/09/17 10:57 Stomatocytes 1+ 08/09/17 10:57 Helmet Cells Not Reportable 08/09/17 10:57 [place] Bodies Not Reportable 08/09/17 10:57 [place] Rings Not Reportable 08/09/17 10:57 [place] Cells Not Reportable 08/09/17 10:57 Bite Cells Not Reportable 08/09/17 10:57 Crenated Cell Not Reportable 08/09/17 10:57 Elliptocytes Not Reportable 08/09/17 10:57 Acanthocytes (Spur) Not Reportable 08/09/17 10:57 Rouleaux Not Reportable 08/09/17 10:57 Hemoglobin C Crystals Not Reportable 08/09/17 10:57 Schistocytes Not Reportable 08/09/17 10:57 Malaria parasites Not Reportable 08/09/17 10:57 Cuco Bodies Not Reportable 08/09/17 10:57 Hem Pathologist Commnt No 08/09/17 10:57 PT 16.2 Sec. (12.2-14.9) H 08/07/17 16:58 INR 1.23 (0.87-1.13) H 08/07/17 16:58 VBG pH 7.463 (7.320-7.420) H 08/07/17 16:58 Sodium 143 mmol/L (137-145) 08/10/17 08:04 Potassium 4.8 mmol/L (3.6-5.0) 08/10/17 08:04 Chloride 99.9 mmol/L (98-107) 08/10/17 08:04 Carbon Dioxide 32 mmol/L (22-30) H 08/10/17 08:04 Anion Gap 16 mmol/L 08/10/17 08:04 BUN 11 mg/dL (9-20) 08/10/17 08:04 Creatinine 0.9 mg/dL (0.8-1.5) 08/10/17 08:04 Estimated GFR > 60 ml/min 08/10/17 08:04 BUN/Creatinine Ratio 12 % 08/10/17 08:04 Glucose 115 mg/dL (75-100) H 08/10/17 08:04 Lactic Acid 0.90 mmol/L (0.7-2.0) 08/08/17 06:01 Calcium 8.7 mg/dL (8.4-10.2) 08/10/17 08:04 Total Bilirubin 0.80 mg/dL (0.1-1.2) 08/07/17 16:58 AST 18 units/L (5-40) 08/07/17 16:58 ALT 20 units/L (7-56) 08/07/17 16:58 Alkaline Phosphatase 84 units/L (35-129) 08/07/17 16:58 NT-Pro-B Natriuret Pep 2205 pg/mL (0-450) H 08/07/17 16:58 Total Protein 5.8 g/dL (6.3-8.2) L 08/07/17 16:58 Albumin 3.0 g/dL (3.9-5) L 08/07/17 16:58 Albumin/Globulin Ratio 1.1 % 08/07/17 16:58 TSH 4.900 mlU/mL (0.270-4.200) H 08/10/17 08:04 Free T4 0.80 ng/dL (0.76-1.46) 08/10/17 08:04
[2017-08-10] MEDS ORDERED: LASIX IV ONE (13:01)
--- NOTE | 2017-08-10 13:13 | Consultation ---
History of Present Illness Consult date: 08/10/17 Requesting physician: MAYNOR KING Reason for consult: dyspnea, hypoxemia, obstructive sleep apnea History of present illness: 26 y/o, morbidly obese male, admitted 3 days go with fever and hypoxemia. Has been treated by [facility] but still complained of dyspnea so pulmonary was consulted for further help. Per patient, who is not a good historian, states that his breathing is better today. He does snore and has been told that he stops sleeping at night. He has severe orthopnea and literally sleeps sitting up at almost 90 degrees. He is scheduled for an outpatient sleep study. He is also seen by a software engineer sales but he does not know why. Remainder of the review is negative. Past History Past Medical History: diabetes, other (Asthma, Lymphedema) Past Surgical History: No surgical history, Other (reviewed) Social history: single, smoking. denies: alcohol abuse, prescription drug abuse Family history: hypertension Medications and Allergies Allergies Allergy/AdvReac Type Severity Reaction Status Date / Time vancomycin Allergy Hives Verified 08/07/17 16:25 Home Medications Medication Instructions Recorded Confirmed Last Taken Type Acetaminophen/Codeine 1 tab PO Q6H PRN #20 tab 04/28/14 Unknown Rx [Acetaminophen-Codeine #3 TAB] Cephalexin [Keflex] 500 mg PO TID #30 capsule 04/28/14 Unknown Rx Sulfamethoxazole/Trimethoprim 1 each PO BID #20 tablet 04/28/14 Unknown Rx [Bactrim Ds] Active Meds: Active Medications Acetaminophen (Tylenol) 650 mg PO Q4H PRN PRN Reason: Pain MILD(1-3)/Fever >100.5/ARENAS Last Admin: 08/10/17 09:28 Dose: 650 mg Albuterol (Proventil) 2.5 mg IH Q4HRT PRN PRN Reason: Shortness Of Breath Bisacodyl (Dulcolax) 10 mg RI QDAY PRN PRN Reason: Constipation unrelieved by MOM Furosemide (Lasix) 20 mg PO QDAY MICHELLE Last Admin: 08/10/17 09:25 Dose: 20 mg Clindamycin HCl (Cleocin 600 Mg/50 Ml) 600 mg in 50 mls @ 100 mls/hr IV Q8HR MICHELLE PRN Reason: Protocol Levofloxacin (Levaquin) 750 mg PO Q24HR MICHELLE Magnesium Hydroxide (Milk Of Magnesia) 30 ml PO Q4H PRN PRN Reason: Constipation Ondansetron HCl (Zofran) 4 mg IV Q8H PRN PRN Reason: N/V unrelieved by Trung Last Admin: 08/07/17 23:02 Dose: 4 mg Review of Systems All systems: negative Physical Examination Vital signs: Vital Signs Temp Pulse Resp BP Pulse Ox 101.7 F H 123 H 24 128/44 78 L 08/07/17 16:25 08/07/17 16:25 08/07/17 16:25 08/07/17 16:25 08/07/17 16:25 General appearance: no acute distress, appears uncomfortable, other (morbidly, morbidly obese) Eyes: non-icteric ENT: oropharynx moist Neck: other (extremely large in circumference) Effort: normal Ascultation: Bilateral: diminished breath sounds (secondary to body habitus) Percussion: Bilateral: not dull Cardiovascular: regular rate and rhythm Gastrointestinal: other (diminshed bowel sounds secondary to body habitus) Extremities: other (bilateral lymphedema with chronic changes) normal mental status, non-focal exam Results - Laboratory Findings CBC and BMP: 08/10/17 08:04 08/10/17 08:04 PT/INR, D-dimer PT 16.2 Sec. (12.2-14.9) H 08/07/17 16:58 INR 1.23 (0.87-1.13) H 08/07/17 16:58 Abnormal lab findings: Abnormal Labs 08/07/17 08/07/17 08/07/17 16:58 16:58 16:58 WBC 16.1 H RBC 5.44 H Hgb Hct MCV 74 L MCH 22 L MCHC 29 L RDW 21.7 H Seg Neutrophils % Seg Neuts % (Manual) 87.0 H Lymphocytes % (Manual) 7.0 L Monocytes % (Manual) Eosinophils % (Manual) Basophils % (Manual) 2.0 H Seg Neutrophils # Man 14.0 H Lymphocytes # (Manual) 1.1 L Monocytes # (Manual) Eosinophils # (Manual) Basophils # (Manual) 0.3 H PT 16.2 H INR 1.23 H VBG pH Chloride 96.2 L Carbon Dioxide 31 H Glucose Lactic Acid Calcium NT-Pro-B Natriuret Pep Total Protein 5.8 L Albumin 3.0 L TSH 08/07/17 08/07/17 08/07/17 16:58 16:58 16:58 WBC RBC Hgb Hct MCV MCH MCHC RDW Seg Neutrophils % Seg Neuts % (Manual) Lymphocytes % (Manual) Monocytes % (Manual) Eosinophils % (Manual) Basophils % (Manual) Seg Neutrophils # Man Lymphocytes # (Manual) Monocytes # (Manual) Eosinophils # (Manual) Basophils # (Manual) PT INR VBG pH 7.463 H Chloride Carbon Dioxide Glucose Lactic Acid 2.10 H* Calcium NT-Pro-B Natriuret Pep 2205 H Total Protein Albumin TSH 08/09/17 08/09/17 08/10/17 10:57 13:37 08:04 WBC 14.5 H RBC Hgb 10.8 L 10.8 L Hct 35.1 L MCV 74 L 76 L MCH 23 L 23 L MCHC 31 L 30 L RDW 21.2 H 21.0 H Seg Neutrophils % 75.4 H Seg Neuts % (Manual) Lymphocytes % (Manual) Monocytes % (Manual) 9.0 H Eosinophils % (Manual) 5.0 H Basophils % (Manual) Seg Neutrophils # Man 9.3 H Lymphocytes # (Manual) Monocytes # (Manual) 1.3 H Eosinophils # (Manual) 0.7 H Basophils # (Manual) PT INR VBG pH Chloride 96.9 L Carbon Dioxide 32 H Glucose Lactic Acid Calcium 8.3 L NT-Pro-B Natriuret Pep Total Protein Albumin TSH 08/10/17 08/10/17 08:04 08:04 WBC RBC Hgb Hct MCV MCH MCHC RDW Seg Neutrophils % Seg Neuts % (Manual) Lymphocytes % (Manual) Monocytes % (Manual) Eosinophils % (Manual) Basophils % (Manual) Seg Neutrophils # Man Lymphocytes # (Manual) Monocytes # (Manual) Eosinophils # (Manual) Basophils # (Manual) PT INR VBG pH Chloride Carbon Dioxide 32 H Glucose 115 H Lactic Acid Calcium NT-Pro-B Natriuret Pep Total Protein Albumin TSH 4.900 H - Diagnostic Findings Chest x-ray: image reviewed (clear lung navarro) Assessment and Plan 26 y/o male, morbidly, morbidly obese, admitted with acute respiratory failure, most likely multifactorial. 1. Needs weight loss 2. has sleep study already scheduled, must keep appointment 3. Will give an additional dose of lasix today. need IMS to check K and follow up levels in the am 4. Suggest fluid restriction (patient has about 6 bottles of water and a large gatorade at bedside) 5. Will continue to follow along with you.
[2017-08-10] MEDS: CLEOCIN 600 MG/50 mL 600 MG/50 ML BAG IV SCH ×2 (13:16→22:19)
[2017-08-10] MEDS ORDERED: ZITHROMAX PO SCH (22:00)
[2017-08-11] MEDS: CLEOCIN 600 MG/50 mL 600 MG/50 ML BAG IV SCH ×3 (05:35→21:49)
[2017-08-11 08:21] LABS: Basophils % (Auto) 0.5 % (0.0-1.8); Eosinophils # (Auto) 0.3 K/mm3 (0.0-0.4); Eosinophils % (Auto) 2.9 % (0.0-4.3); Lymphocytes # (Auto) 1.7 K/mm3 (1.2-5.4); Lymphocytes % (Auto) 19.6 % (13.4-35.0); Mean Corpuscular HGB Conc 29 % (32-34); Mean Corpuscular Volume 76 fl (84-94); Monocytes # (Auto) 0.8 K/mm3 (0.0-0.8); Monocytes % (Auto) 8.8 % (0.0-7.3); Platelet Count 245 K/mm3 (140-440); Red Blood Count 4.76 M/mm3 (3.65-5.03)
[2017-08-11 08:29] LABS: Hematocrit 36.1 % (35.5-45.6); Hemoglobin 10.3 gm/dl (11.8-15.2); Mean Corpuscular Hemoglobin 22 pg (28-32); Red Cell Distribution Width 21.4 % (13.2-15.2)
[2017-08-11 08:38] LABS: Alanine Aminotransferase 15 units/L (7-56); Albumin 3.1 g/dL (3.9-5); BUN/Creatinine Ratio 14; Bilirubin,Direct 0.2 mg/dL (0-0.2); Blood Urea Nitrogen 11 mg/dL (9-20); Calcium 8.6 mg/dL (8.4-10.2); Hemolysis Index 0
[2017-08-11 08:51] LABS: Free T4 (Free Thyroxine) 0.86 ng/dL (0.76-1.46)
[2017-08-11] MEDS: LASIX PO SCH (10:06)
[2017-08-11] MEDS: LEVAQUIN PO SCH (10:06)
--- NOTE | 2017-08-11 11:33 | Progress Note ---
Assessment and Plan Assessment and plan: 26-year-old morbidly obese male patient with history of bronchial asthma and diabetes mellitus chronic lymphedema admitted through emergency room with worsening shortness of breath, noted to be in acute on chronic respiratory failure, and community-acquired pneumonia, --Acute hypoxic hypercapnic respiratory failure; Oxygen titrate to O2 sats more than 90%, nebulizers, IV antibiotics, BiPAP as needed, IV steroids --obstructive sleep apnea/obesity hypoventilation syndrome; , BiPAP at night Oxygen, duo nebs, pulmonary following, out patient sleep study --Severe pulmonary hypertension on echocardiogram; diuretics, fluid restriction , --Left lower lobe pneumonia/atelectasis/community-acquired; continue Levaquin , cultures negative to date , supportive care --Sepsis; continue empiric antibiotics, follow cultures, IV fluids --Lactic acidosis; continue IV fluids, IV antibiotics, follow levels --Leukocytosis secondary to sepsis; trending down --Congestive heart failure; echocardiogram findings reviewed ejection fraction 40- 45%, severe pulmonary hypertension, gentle diuresis, --Chronic massive lymphedema; supportive care, wound care and lymphedema care as needed Lower extremity and left upper extremity venous Doppler negative for DVT --Morbid obesity; BMI of 82; counseling done, patient may benefit from bariatric surgical consultation or weight reduction program when medically stable --Physical therapy occupational therapy as tolerated --Discharge planning. Case management, possible home with home health when patient is stable Plan of care reviewed with the patient and his nurse, family members[uncle] at the bedside and answered all their questions Disposition; possible discharge home with home health, home oxygen, outpatient sleep studies when medically stable History Interval history: Patient seen and examined medical records reviewed No new events reported by the nursing staff Patient feels better, receiving BiPAP at night Denies shortness of breath or chest pain Alert awake oriented 3 not in acute distress Vital signs reviewed Hospitalist Physical - Constitutional Vitals: Temp Pulse Resp BP Pulse Ox 97.5 F L 77 20 113/51 97 08/11/17 07:20 08/11/17 07:20 08/11/17 07:20 08/11/17 07:20 08/11/17 07:45 General appearance: Present: mild distress, obese (morbidly obese) - EENT Eyes: Present: PERRL, EOM intact - Neck Neck: Present: supple, normal ROM - Respiratory Respiratory effort: normal Respiratory: bilateral: diminished, rhonchi, negative: rales, wheezing - Cardiovascular Rhythm: regular Heart Sounds: Present: S1 & S2 - Extremities Extremities: abnormal (chronic massive lymphedema all extremities) Extremity abnormal: other - Abdominal General gastrointestinal: soft, non-tender, non-distended, normal bowel sounds - Integumentary Integumentary: Present: clear, warm - Psychiatric Psychiatric: appropriate mood/affect, cooperative - Neurologic Neurologic: CNII-XII intact, moves all extremities Results - Labs CBC & Chem 7: 08/11/17 07:12 08/11/17 07:12 Labs: Laboratory Last Values WBC 8.7 K/mm3 (4.5-11.0) 08/11/17 07:12 RBC 4.76 M/mm3 (3.65-5.03) 08/11/17 07:12 Hgb 10.3 gm/dl (11.8-15.2) L 08/11/17 07:12 Hct 36.1 % (35.5-45.6) 08/11/17 07:12 MCV 76 fl (84-94) L 08/11/17 07:12 MCH 22 pg (28-32) L 08/11/17 07:12 MCHC 29 % (32-34) L 08/11/17 07:12 RDW 21.4 % (13.2-15.2) H 08/11/17 07:12 Plt Count 245 K/mm3 (140-440) 08/11/17 07:12 Lymph % (Auto) 19.6 % (13.4-35.0) 08/11/17 07:12 [place] % (Auto) 8.8 % (0.0-7.3) H 08/11/17 07:12 Eos % (Auto) 2.9 % (0.0-4.3) 08/11/17 07:12 Baso % (Auto) 0.5 % (0.0-1.8) 08/11/17 07:12 Lymph # 1.7 K/mm3 (1.2-5.4) 08/11/17 07:12 [place] # 0.8 K/mm3 (0.0-0.8) 08/11/17 07:12 Eos # 0.3 K/mm3 (0.0-0.4) 08/11/17 07:12 Baso # 0.0 K/mm3 (0.0-0.1) 08/11/17 07:12 Add Manual Diff Complete 08/09/17 10:57 Total Counted 100 08/09/17 10:57 Seg Neutrophils % 68.2 % (40.0-70.0) 08/11/17 07:12 Seg Neuts % (Manual) 64.0 % (40.0-70.0) 08/09/17 10:57 Band Neutrophils % 4.0 % 08/09/17 10:57 Lymphocytes % (Manual) 15.0 % (13.4-35.0) 08/09/17 10:57 Reactive Lymphs % (Man) 3.0 % 08/09/17 10:57 Monocytes % (Manual) 9.0 % (0.0-7.3) H 08/09/17 10:57 Eosinophils % (Manual) 5.0 % (0.0-4.3) H 08/09/17 10:57 Basophils % (Manual) 0 % (0.0-1.8) 08/09/17 10:57 Metamyelocytes % 0 % 08/09/17 10:57 Myelocytes % 0 % 08/09/17 10:57 Promyelocytes % 0 % 08/09/17 10:57 Blast Cells % 0 % 08/09/17 10:57 Nucleated RBC % Not Reportable 08/09/17 10:57 Seg Neutrophils # 5.9 K/mm3 (1.8-7.7) 08/11/17 07:12 Seg Neutrophils # Man 9.3 K/mm3 (1.8-7.7) H 08/09/17 10:57 Band Neutrophils # 0.6 K/mm3 08/09/17 10:57 Lymphocytes # (Manual) 2.2 K/mm3 (1.2-5.4) 08/09/17 10:57 Abs React Lymphs (Man) 0.4 K/mm3 08/09/17 10:57 Monocytes # (Manual) 1.3 K/mm3 (0.0-0.8) H 08/09/17 10:57 Eosinophils # (Manual) 0.7 K/mm3 (0.0-0.4) H 08/09/17 10:57 Basophils # (Manual) 0.0 K/mm3 (0.0-0.1) 08/09/17 10:57 Metamyelocytes # 0.0 K/mm3 08/09/17 10:57 Myelocytes # 0.0 K/mm3 08/09/17 10:57 Promyelocytes # 0.0 K/mm3 08/09/17 10:57 Blast Cells # 0.0 K/mm3 08/09/17 10:57 WBC Morphology Not Reportable 08/09/17 10:57 Hypersegmented Neuts Not Reportable 08/09/17 10:57 Hyposegmented Neuts Not Reportable 08/09/17 10:57 Hypogranular Neuts Not Reportable 08/09/17 10:57 Smudge Cells Not Reportable 08/09/17 10:57 Toxic Granulation Not Reportable 08/09/17 10:57 Toxic Vacuolation Not Reportable 08/09/17 10:57 Dohle Bodies Not Reportable 08/09/17 10:57 Pelger-Huet Anomaly Not Reportable 08/09/17 10:57 Noa Rods Not Reportable 08/09/17 10:57 Platelet Estimate Consistent w auto 08/09/17 10:57 Clumped Platelets Not Reportable 08/09/17 10:57 Plt Clumps, EDTA Not Reportable 08/09/17 10:57 Large Platelets Not Reportable 08/09/17 10:57 Giant Platelets Few 08/09/17 10:57 Platelet Satelliting Not Reportable 08/09/17 10:57 Plt Morphology Comment Not Reportable 08/09/17 10:57 RBC Morphology Not Reportable 08/09/17 10:57 Dimorphic RBCs Not Reportable 08/09/17 10:57 Polychromasia Not Reportable 08/09/17 10:57 Hypochromasia 1+ 08/09/17 10:57 Poikilocytosis 1+ 08/09/17 10:57 Anisocytosis 1+ 08/09/17 10:57 Microcytosis 1+ 08/09/17 10:57 Macrocytosis Not Reportable 08/09/17 10:57 Spherocytes Not Reportable 08/09/17 10:57 Pappenheimer Bodies Not Reportable 08/09/17 10:57 Sickle Cells Not Reportable 08/09/17 10:57 Target Cells Not Reportable 08/09/17 10:57 Tear Drop Cells Not Reportable 08/09/17 10:57 Ovalocytes Few 08/09/17 10:57 Stomatocytes 1+ 08/09/17 10:57 Helmet Cells Not Reportable 08/09/17 10:57 [place] Bodies Not Reportable 08/09/17 10:57 [place] Rings Not Reportable 08/09/17 10:57 [place] Cells Not Reportable 08/09/17 10:57 Bite Cells Not Reportable 08/09/17 10:57 Crenated Cell Not Reportable 08/09/17 10:57 Elliptocytes Not Reportable 08/09/17 10:57 Acanthocytes (Spur) Not Reportable 08/09/17 10:57 Rouleaux Not Reportable 08/09/17 10:57 Hemoglobin C Crystals Not Reportable 08/09/17 10:57 Schistocytes Not Reportable 08/09/17 10:57 Malaria parasites Not Reportable 08/09/17 10:57 Cuco Bodies Not Reportable 08/09/17 10:57 Hem Pathologist Commnt No 08/09/17 10:57 PT 16.2 Sec. (12.2-14.9) H 08/07/17 16:58 INR 1.23 (0.87-1.13) H 08/07/17 16:58 POC ABG pH 7.390 (7.35-7.45) 08/10/17 14:50 POC ABG pCO2 65.9 (35-45) H 08/10/17 14:50 POC ABG pO2 84 (80-105) 08/10/17 14:50 POC ABG HCO3 39.9 08/10/17 14:50 POC ABG Total CO2 42 08/10/17 14:50 POC ABG O2 Sat 96 08/10/17 14:50 POC ABG Base Excess 15 08/10/17 14:50 VBG pH 7.463 (7.320-7.420) H 08/07/17 16:58 FiO2 2 % 08/10/17 14:50 Sodium 143 mmol/L (137-145) 08/11/17 07:12 Potassium 4.4 mmol/L (3.6-5.0) 08/11/17 07:12 Chloride 98.1 mmol/L (98-107) 08/11/17 07:12 Carbon Dioxide 35 mmol/L (22-30) H 08/11/17 07:12 Anion Gap 14 mmol/L 08/11/17 07:12 BUN 11 mg/dL (9-20) 08/11/17 07:12 Creatinine 0.8 mg/dL (0.8-1.5) 08/11/17 07:12 Estimated GFR > 60 ml/min 08/11/17 07:12 BUN/Creatinine Ratio 14 % 08/11/17 07:12 Glucose 105 mg/dL (75-100) H 08/11/17 07:12 Lactic Acid 0.90 mmol/L (0.7-2.0) 08/08/17 06:01 Calcium 8.6 mg/dL (8.4-10.2) 08/11/17 07:12 Total Bilirubin 0.50 mg/dL (0.1-1.2) 08/11/17 07:12 Direct Bilirubin 0.2 mg/dL (0-0.2) 08/11/17 07:12 Indirect Bilirubin 0.3 mg/dL 08/11/17 07:12 AST 14 units/L (5-40) 08/11/17 07:12 ALT 15 units/L (7-56) 08/11/17 07:12 Alkaline Phosphatase 82 units/L (35-129) 08/11/17 07:12 NT-Pro-B Natriuret Pep 2205 pg/mL (0-450) H 08/07/17 16:58 Total Protein 5.8 g/dL (6.3-8.2) L 08/11/17 07:12 Albumin 3.1 g/dL (3.9-5) L 08/11/17 07:12 Albumin/Globulin Ratio 1.1 % 08/11/17 07:12 TSH 4.780 mlU/mL (0.270-4.200) H 08/11/17 07:12 Free T4 0.86 ng/dL (0.76-1.46) 08/11/17 07:12
--- NOTE | 2017-08-11 12:06 | Progress Note ---
Assessment and Plan Chronic hypercapnia respiratory failure. Secondary to super morbid obesity Obesity hyperventilation syndrome with acute decompensation. Clinical picture highly suspicious of pulmonary hypertension triggering heart failure decompensation, secondary to chronic hypoxemia and RUSSEL Pulmonary hypertension most likely class 2/3, see echocardiogram Congestive heart failure with low ejection fraction. Etiology to be determined RUSSEL. Probably active, never evaluated. The patient is scheduled for sleep study has an outpatient Super morbid obesity. Triggering all of the above Recommendations Continue oxygen support I agree with empirical BiPAP at night as tolerated Elevated OH bed Cardiology evaluation for cardiomyopathy review Avoid sedatives and benzodiazepines/narcotics Will need outpatient sleep study evaluation, once the patient is clinically stable for it Needs full nutritional review/consult, with diet for aggressive weight reduction In case of progressive deterioration from respiratory standpoint, intervention with early tracheotomy may be necessary for both RUSSEL/obesity hypoventilation syndrome DVT prophylaxis Discussed with patient and family in detail. All questions answered Complex patient Subjective Date of service: 08/11/17 Principal diagnosis: heart failure, hypercapnic respiratory failure, severe morbid obesity Interval history: The patient reports breathing appears to be better this morning. He was not able to tolerate an NIV/BiPAP last night. Feels comfortable with current nasal cannula oxygen. On further review, he had been sent to have outpatient sleep study evaluation and also had been ordered to have oxygen at home, by his primary physician Objective Vital Signs - 12hr 08/11/17 08/11/17 07:20 07:45 Temperature 97.5 F L Pulse Rate 77 Respiratory 20 Rate Blood Pressure 113/51 O2 Sat by Pulse 99 97 Oximetry Constitutional: no acute distress, appears uncomfortable, other (morbidly, morbidly obese) Eyes: non-icteric ENT: oropharynx moist, other (Mallampati 4) Neck: other (extremely large in circumference) Effort: normal Ascultation: Bilateral: diminished breath sounds (secondary to body habitus) Percussion: Bilateral: not dull Cardiovascular: regular rate and rhythm Gastrointestinal: other (diminshed bowel sounds secondary to body habitus) Extremities: other (bilateral lymphedema with chronic changes) Neurologic: normal mental status, non-focal exam Psychiatric: mood appropriate CBC and BMP: 08/11/17 07:12 08/11/17 07:12 ABG, PT/INR, D-dimer: ABG POC ABG pH 7.390 (7.35-7.45) 08/10/17 14:50 POC ABG pCO2 65.9 (35-45) H 08/10/17 14:50 POC ABG pO2 84 (80-105) 08/10/17 14:50 POC ABG HCO3 39.9 08/10/17 14:50 POC ABG Total CO2 42 08/10/17 14:50 POC ABG O2 Sat 96 08/10/17 14:50 PT/INR, D-dimer PT 16.2 Sec. (12.2-14.9) H 08/07/17 16:58 INR 1.23 (0.87-1.13) H 08/07/17 16:58 Abnormal lab findings: Abnormal Labs 08/07/17 08/07/17 08/07/17 16:58 16:58 16:58 WBC 16.1 H RBC 5.44 H Hgb Hct MCV 74 L MCH 22 L MCHC 29 L RDW 21.7 H [place] % (Auto) Seg Neutrophils % Seg Neuts % (Manual) 87.0 H Lymphocytes % (Manual) 7.0 L Monocytes % (Manual) Eosinophils % (Manual) Basophils % (Manual) 2.0 H Seg Neutrophils # Man 14.0 H Lymphocytes # (Manual) 1.1 L Monocytes # (Manual) Eosinophils # (Manual) Basophils # (Manual) 0.3 H PT 16.2 H INR 1.23 H POC ABG pCO2 VBG pH Chloride 96.2 L Carbon Dioxide 31 H Glucose Lactic Acid Calcium NT-Pro-B Natriuret Pep Total Protein 5.8 L Albumin 3.0 L TSH 08/07/17 08/07/17 08/07/17 16:58 16:58 16:58 WBC RBC Hgb Hct MCV MCH MCHC RDW [place] % (Auto) Seg Neutrophils % Seg Neuts % (Manual) Lymphocytes % (Manual) Monocytes % (Manual) Eosinophils % (Manual) Basophils % (Manual) Seg Neutrophils # Man Lymphocytes # (Manual) Monocytes # (Manual) Eosinophils # (Manual) Basophils # (Manual) PT INR POC ABG pCO2 VBG pH 7.463 H Chloride Carbon Dioxide Glucose Lactic Acid 2.10 H* Calcium NT-Pro-B Natriuret Pep 2205 H Total Protein Albumin TSH 08/09/17 08/09/17 08/10/17 10:57 13:37 08:04 WBC 14.5 H RBC Hgb 10.8 L 10.8 L Hct 35.1 L MCV 74 L 76 L MCH 23 L 23 L MCHC 31 L 30 L RDW 21.2 H 21.0 H [place] % (Auto) Seg Neutrophils % 75.4 H Seg Neuts % (Manual) Lymphocytes % (Manual) Monocytes % (Manual) 9.0 H Eosinophils % (Manual) 5.0 H Basophils % (Manual) Seg Neutrophils # Man 9.3 H Lymphocytes # (Manual) Monocytes # (Manual) 1.3 H Eosinophils # (Manual) 0.7 H Basophils # (Manual) PT INR POC ABG pCO2 VBG pH Chloride 96.9 L Carbon Dioxide 32 H Glucose Lactic Acid Calcium 8.3 L NT-Pro-B Natriuret Pep Total Protein Albumin TSH 08/10/17 08/10/17 08/10/17 08:04 08:04 14:50 WBC RBC Hgb Hct MCV MCH MCHC RDW [place] % (Auto) Seg Neutrophils % Seg Neuts % (Manual) Lymphocytes % (Manual) Monocytes % (Manual) Eosinophils % (Manual) Basophils % (Manual) Seg Neutrophils # Man Lymphocytes # (Manual) Monocytes # (Manual) Eosinophils # (Manual) Basophils # (Manual) PT INR POC ABG pCO2 65.9 H VBG pH Chloride Carbon Dioxide 32 H Glucose 115 H Lactic Acid Calcium NT-Pro-B Natriuret Pep Total Protein Albumin TSH 4.900 H 08/11/17 08/11/17 08/11/17 07:12 07:12 07:12 WBC RBC Hgb 10.3 L Hct MCV 76 L MCH 22 L MCHC 29 L RDW 21.4 H [place] % (Auto) 8.8 H Seg Neutrophils % Seg Neuts % (Manual) Lymphocytes % (Manual) Monocytes % (Manual) Eosinophils % (Manual) Basophils % (Manual) Seg Neutrophils # Man Lymphocytes # (Manual) Monocytes # (Manual) Eosinophils # (Manual) Basophils # (Manual) PT INR POC ABG pCO2 VBG pH Chloride Carbon Dioxide 35 H Glucose 105 H Lactic Acid Calcium NT-Pro-B Natriuret Pep Total Protein 5.8 L Albumin 3.1 L TSH 4.780 H Chest x-ray: report reviewed, image reviewed
[2017-08-11] MEDS: GUAIFENESIN DM SYRUP PO PRN (12:20)
[2017-08-11] MEDS: MOTRIN PO PRN (12:20)
[2017-08-11] MEDS: LOVENOX SUB-Q SCH (21:49)
[2017-08-12] MEDS: CLEOCIN 600 MG/50 mL 600 MG/50 ML BAG IV SCH ×3 (05:30→22:33)
[2017-08-12 05:54] LABS: Basophils # (Auto) 0.1 K/mm3 (0.0-0.1); Basophils % (Auto) 0.8 % (0.0-1.8); Eosinophils # (Auto) 0.3 K/mm3 (0.0-0.4); Lymphocytes # (Auto) 1.5 K/mm3 (1.2-5.4); Lymphocytes % (Auto) 18.2 % (13.4-35.0); Mean Corpuscular HGB Conc 30 % (32-34); Mean Corpuscular Volume 76 fl (84-94); Monocytes # (Auto) 0.6 K/mm3 (0.0-0.8); Platelet Count 235 K/mm3 (140-440); Red Blood Count 4.65 M/mm3 (3.65-5.03)
[2017-08-12 05:59] LABS: Hematocrit 35.3 % (35.5-45.6); Hemoglobin 10.7 gm/dl (11.8-15.2); Mean Corpuscular Hemoglobin 23 pg (28-32); Red Cell Distribution Width 21.3 % (13.2-15.2)
[2017-08-12 06:07] LABS: Alanine Aminotransferase 14 units/L (7-56); BUN/Creatinine Ratio 13; Blood Urea Nitrogen 12 mg/dL (9-20); Calcium 8.7 mg/dL (8.4-10.2); Hemolysis Index 12
--- NOTE | 2017-08-12 07:44 | Progress Note ---
Assessment and Plan Assessment and plan: 26-year-old morbidly obese male patient with history of bronchial asthma and diabetes mellitus chronic lymphedema admitted through emergency room with worsening shortness of breath, noted to be in acute on chronic respiratory failure, and community-acquired pneumonia, --Acute hypoxic hypercapnic respiratory failure; Oxygen titrate to O2 sats more than 90%, nebulizers, IV antibiotics, BiPAP as needed, IV steroids -continue BIPAP prn, will need neb, NIV and HHS at home --obstructive sleep apnea/obesity hypoventilation syndrome; , BiPAP at night Oxygen, duo nebs, pulmonary following, out patient sleep study --Severe pulmonary hypertension on echocardiogram; diuretics, fluid restriction , --Left lower lobe pneumonia/atelectasis/community-acquired; continue Levaquin , cultures negative to date , supportive care --Sepsis; continue empiric antibiotics, follow cultures, IV fluids --Lactic acidosis; continue IV fluids, IV antibiotics, follow levels --Leukocytosis secondary to sepsis; trending down --systolic Congestive heart failure; echocardiogram findings reviewed ejection fraction 40- 45%, severe pulmonary hypertension, gentle diuresis, -cardiology consult, continue diuresis --Chronic massive lymphedema; supportive care, wound care and lymphedema care as needed Lower extremity and left upper extremity venous Doppler negative for DVT --Morbid obesity; BMI of 82; counseling done, patient may benefit from bariatric surgical consultation or weight reduction program when medically stable --Physical therapy occupational therapy as tolerated --Discharge planning. Case management, possible home with home health when patient is stable Plan of care reviewed with the patient and his nurse, family members, sister at the bedside and answered all their questions Will need referal to weight loss program when clinically improved Disposition; possible discharge home with home health, home oxygen, outpatient sleep studies when medically stable History Interval history: Patient denies sob despite hypoxia and wants to go home Review of systems Constitutional: No fevers, no malaise, no joint pains CVS: No chest pain, no orthopnea, no dyspnea on exertion, no pedal edema GI: No abdominal pain, no diarrhea, no vomiting, no constipation Respiratory: No shortness of breath, no wheezing, no coughing Hospitalist Physical - Physical exam Narrative exam: General.: Appears well, no distress, nontoxic, morbidly obese HEENT: Moist mucous membranes, extraocular muscles intact, no lymphadenopathy Neck: supple Cardiac: S1-S2 heard Lungs: decreased air entry, wheezing, Abdomen: soft , nontender, nondistended, bowel sounds positive Extremities: pitting edema in all four extremities Skin: no rash or lesions Neurologic: no gross focal deficits Psych: appropriate behavior, appropriate mood, corporative, judgment intact - Constitutional Vitals: Temp Pulse Resp BP Pulse Ox 98.1 F 90 16 115/55 93 08/11/17 21:04 08/11/17 21:04 08/11/17 21:04 08/11/17 21:04 08/11/17 21:04 General appearance: Present: mild distress, obese (morbidly obese) Results - Labs CBC & Chem 7: 08/14/17 10:36 08/12/17 04:31 Labs: Laboratory Last Values WBC 8.5 K/mm3 (4.5-11.0) 08/12/17 04:31 RBC 4.65 M/mm3 (3.65-5.03) 08/12/17 04:31 Hgb 10.7 gm/dl (11.8-15.2) L 08/12/17 04:31 Hct 35.3 % (35.5-45.6) L 08/12/17 04:31 MCV 76 fl (84-94) L 08/12/17 04:31 MCH 23 pg (28-32) L 08/12/17 04:31 MCHC 30 % (32-34) L 08/12/17 04:31 RDW 21.3 % (13.2-15.2) H 08/12/17 04:31 Plt Count 235 K/mm3 (140-440) 08/12/17 04:31 Lymph % (Auto) 18.2 % (13.4-35.0) 08/12/17 04:31 [place] % (Auto) 7.0 % (0.0-7.3) 08/12/17 04:31 Eos % (Auto) 4.0 % (0.0-4.3) 08/12/17 04:31 Baso % (Auto) 0.8 % (0.0-1.8) 08/12/17 04:31 Lymph # 1.5 K/mm3 (1.2-5.4) 08/12/17 04:31 [place] # 0.6 K/mm3 (0.0-0.8) 08/12/17 04:31 Eos # 0.3 K/mm3 (0.0-0.4) 08/12/17 04:31 Baso # 0.1 K/mm3 (0.0-0.1) 08/12/17 04:31 Add Manual Diff Complete 08/09/17 10:57 Total Counted 100 08/09/17 10:57 Seg Neutrophils % 70.0 % (40.0-70.0) 08/12/17 04:31 Seg Neuts % (Manual) 64.0 % (40.0-70.0) 08/09/17 10:57 Band Neutrophils % 4.0 % 08/09/17 10:57 Lymphocytes % (Manual) 15.0 % (13.4-35.0) 08/09/17 10:57 Reactive Lymphs % (Man) 3.0 % 08/09/17 10:57 Monocytes % (Manual) 9.0 % (0.0-7.3) H 08/09/17 10:57 Eosinophils % (Manual) 5.0 % (0.0-4.3) H 08/09/17 10:57 Basophils % (Manual) 0 % (0.0-1.8) 08/09/17 10:57 Metamyelocytes % 0 % 08/09/17 10:57 Myelocytes % 0 % 08/09/17 10:57 Promyelocytes % 0 % 08/09/17 10:57 Blast Cells % 0 % 08/09/17 10:57 Nucleated RBC % Not Reportable 08/09/17 10:57 Seg Neutrophils # 5.9 K/mm3 (1.8-7.7) 08/12/17 04:31 Seg Neutrophils # Man 9.3 K/mm3 (1.8-7.7) H 08/09/17 10:57 Band Neutrophils # 0.6 K/mm3 08/09/17 10:57 Lymphocytes # (Manual) 2.2 K/mm3 (1.2-5.4) 08/09/17 10:57 Abs React Lymphs (Man) 0.4 K/mm3 08/09/17 10:57 Monocytes # (Manual) 1.3 K/mm3 (0.0-0.8) H 08/09/17 10:57 Eosinophils # (Manual) 0.7 K/mm3 (0.0-0.4) H 08/09/17 10:57 Basophils # (Manual) 0.0 K/mm3 (0.0-0.1) 08/09/17 10:57 Metamyelocytes # 0.0 K/mm3 08/09/17 10:57 Myelocytes # 0.0 K/mm3 08/09/17 10:57 Promyelocytes # 0.0 K/mm3 08/09/17 10:57 Blast Cells # 0.0 K/mm3 08/09/17 10:57 WBC Morphology Not Reportable 08/09/17 10:57 Hypersegmented Neuts Not Reportable 08/09/17 10:57 Hyposegmented Neuts Not Reportable 08/09/17 10:57 Hypogranular Neuts Not Reportable 08/09/17 10:57 Smudge Cells Not Reportable 08/09/17 10:57 Toxic Granulation Not Reportable 08/09/17 10:57 Toxic Vacuolation Not Reportable 08/09/17 10:57 Dohle Bodies Not Reportable 08/09/17 10:57 Pelger-Huet Anomaly Not Reportable 08/09/17 10:57 Noa Rods Not Reportable 08/09/17 10:57 Platelet Estimate Consistent w auto 08/09/17 10:57 Clumped Platelets Not Reportable 08/09/17 10:57 Plt Clumps, EDTA Not Reportable 08/09/17 10:57 Large Platelets Not Reportable 08/09/17 10:57 Giant Platelets Few 08/09/17 10:57 Platelet Satelliting Not Reportable 08/09/17 10:57 Plt Morphology Comment Not Reportable 08/09/17 10:57 RBC Morphology Not Reportable 08/09/17 10:57 Dimorphic RBCs Not Reportable 08/09/17 10:57 Polychromasia Not Reportable 08/09/17 10:57 Hypochromasia 1+ 08/09/17 10:57 Poikilocytosis 1+ 08/09/17 10:57 Anisocytosis 1+ 08/09/17 10:57 Microcytosis 1+ 08/09/17 10:57 Macrocytosis Not Reportable 08/09/17 10:57 Spherocytes Not Reportable 08/09/17 10:57 Pappenheimer Bodies Not Reportable 08/09/17 10:57 Sickle Cells Not Reportable 08/09/17 10:57 Target Cells Not Reportable 08/09/17 10:57 Tear Drop Cells Not Reportable 08/09/17 10:57 Ovalocytes Few 08/09/17 10:57 Stomatocytes 1+ 08/09/17 10:57 Helmet Cells Not Reportable 08/09/17 10:57 [place] Bodies Not Reportable 08/09/17 10:57 [place] Rings Not Reportable 08/09/17 10:57 [place] Cells Not Reportable 08/09/17 10:57 Bite Cells Not Reportable 08/09/17 10:57 Crenated Cell Not Reportable 08/09/17 10:57 Elliptocytes Not Reportable 08/09/17 10:57 Acanthocytes (Spur) Not Reportable 08/09/17 10:57 Rouleaux Not Reportable 08/09/17 10:57 Hemoglobin C Crystals Not Reportable 08/09/17 10:57 Schistocytes Not Reportable 08/09/17 10:57 Malaria parasites Not Reportable 08/09/17 10:57 Cuco Bodies Not Reportable 08/09/17 10:57 Hem Pathologist Commnt No 08/09/17 10:57 PT 16.2 Sec. (12.2-14.9) H 08/07/17 16:58 INR 1.23 (0.87-1.13) H 08/07/17 16:58 POC ABG pH 7.390 (7.35-7.45) 08/10/17 14:50 POC ABG pCO2 65.9 (35-45) H 08/10/17 14:50 POC ABG pO2 84 (80-105) 08/10/17 14:50 POC ABG HCO3 39.9 08/10/17 14:50 POC ABG Total CO2 42 08/10/17 14:50 POC ABG O2 Sat 96 08/10/17 14:50 POC ABG Base Excess 15 08/10/17 14:50 VBG pH 7.463 (7.320-7.420) H 08/07/17 16:58 FiO2 2 % 08/10/17 14:50 Sodium 139 mmol/L (137-145) 08/12/17 04:31 Potassium 4.1 mmol/L (3.6-5.0) 08/12/17 04:31 Chloride 95.8 mmol/L (98-107) L 08/12/17 04:31 Carbon Dioxide 33 mmol/L (22-30) H 08/12/17 04:31 Anion Gap 14 mmol/L 08/12/17 04:31 BUN 12 mg/dL (9-20) 08/12/17 04:31 Creatinine 0.9 mg/dL (0.8-1.5) 08/12/17 04:31 Estimated GFR > 60 ml/min 08/12/17 04:31 BUN/Creatinine Ratio 13 % 08/12/17 04:31 Glucose 98 mg/dL (75-100) 08/12/17 04:31 Lactic Acid 0.90 mmol/L (0.7-2.0) 08/08/17 06:01 Calcium 8.7 mg/dL (8.4-10.2) 08/12/17 04:31 Magnesium 2.30 mg/dL (1.7-2.3) 08/12/17 04:31 Total Bilirubin 0.60 mg/dL (0.1-1.2) 08/12/17 04:31 Direct Bilirubin 0.2 mg/dL (0-0.2) 08/11/17 07:12 Indirect Bilirubin 0.3 mg/dL 08/11/17 07:12 AST 14 units/L (5-40) 08/12/17 04:31 ALT 14 units/L (7-56) 08/12/17 04:31 Alkaline Phosphatase 80 units/L (35-129) 08/12/17 04:31 NT-Pro-B Natriuret Pep 2205 pg/mL (0-450) H 08/07/17 16:58 Total Protein 5.8 g/dL (6.3-8.2) L 08/12/17 04:31 Albumin 3.0 g/dL (3.9-5) L 08/12/17 04:31 Albumin/Globulin Ratio 1.1 % 08/12/17 04:31 TSH 4.780 mlU/mL (0.270-4.200) H 08/11/17 07:12 Free T4 0.86 ng/dL (0.76-1.46) 08/11/17 07:12
[2017-08-12] MEDS: MOTRIN PO PRN (08:06)
[2017-08-12] MEDS: LASIX PO SCH (09:21)
[2017-08-12] MEDS: LEVAQUIN PO SCH (09:21)
--- NOTE | 2017-08-12 11:30 | Consultation ---
History of Present Illness Consult date: 08/12/17 Consult reason: congestive heart failure History of present illness: This is a 26yr old mobidly obese male who presented 08/07 with fever, hypoxemia, tachycardia and leukocytosis. An echocardiogram demonstrates evidence of severe pulmonary hypertension with a mildly decrease left ventricular ejection fraction , 40-45%, thus this cardiac consultation. Patient denies a prior cardiac history. Patient reports since his initial treatment his breathing has improved. An EKG shows a sinus tachycardia, otherwise, is normal. Past History Family history: hypertension Medications and Allergies Allergies Allergy/AdvReac Type Severity Reaction Status Date / Time vancomycin Allergy Hives Verified 08/07/17 16:25 Home Medications Medication Instructions Recorded Confirmed Last Taken Type No Known Home Medications [No 08/12/17 08/12/17 Unknown History Reported Home Medications] Active Meds: Active Medications Acetaminophen (Tylenol) 650 mg PO Q4H PRN PRN Reason: /Fever >100.5/ARENAS Last Admin: 08/10/17 09:28 Dose: 650 mg Albuterol (Proventil) 2.5 mg IH Q4HRT PRN PRN Reason: Shortness Of Breath Bisacodyl (Dulcolax) 10 mg CA QDAY PRN PRN Reason: Constipation unrelieved by MOM Enoxaparin Sodium (Lovenox) 40 mg SUB-Q QDAY@2200 [facility] Last Admin: 08/11/17 21:49 Dose: 40 mg Furosemide (Lasix) 20 mg PO QDAY [facility] Last Admin: 08/12/17 09:21 Dose: 20 mg Guaifenesin (Guaifenesin Dm Syrup) 10 ml PO Q6H PRN PRN Reason: Cough Last Admin: 08/11/17 12:20 Dose: 10 ml Clindamycin HCl (Cleocin 600 Mg/50 Ml) 600 mg in 50 mls @ 100 mls/hr IV Q8HR MICHELLE PRN Reason: Protocol Last Admin: 08/12/17 05:30 Dose: 100 mls/hr Ibuprofen (Motrin) 600 mg PO Q8H PRN PRN Reason: Pain, Mild (1-3) Last Admin: 08/12/17 08:06 Dose: 600 mg Levofloxacin (Levaquin) 750 mg PO Q24HR [facility] Last Admin: 08/12/17 09:21 Dose: 750 mg Magnesium Hydroxide (Milk Of Magnesia) 30 ml PO Q4H PRN PRN Reason: Constipation Ondansetron HCl (Zofran) 4 mg IV Q8H PRN PRN Reason: N/V unrelieved by Trung Last Admin: 08/07/17 23:02 Dose: 4 mg Physical Examination Vital Signs Temp Pulse Resp BP Pulse Ox 101.7 F H 123 H 24 128/44 78 L 08/07/17 16:25 08/07/17 16:25 08/07/17 16:25 08/07/17 16:25 08/07/17 16:25 General appearance: no acute distress, obese Cardiac: Positive: Reg Rate and Rhythm Results 08/12/17 04:31 08/12/17 04:31 Cardiac Enzymes 08/12/17 Range/Units 04:31 AST 14 (5-40) units/L CBC 08/12/17 Range/Units 04:31 WBC 8.5 (4.5-11.0) K/mm3 RBC 4.65 (3.65-5.03) M/mm3 Hgb 10.7 L (11.8-15.2) gm/dl Hct 35.3 L (35.5-45.6) % Plt Count 235 (140-440) K/mm3 Lymph # 1.5 (1.2-5.4) K/mm3 [place] # 0.6 (0.0-0.8) K/mm3 Eos # 0.3 (0.0-0.4) K/mm3 Baso # 0.1 (0.0-0.1) K/mm3 Comprehensive Metabolic Panel 08/12/17 Range/Units 04:31 Sodium 139 (137-145) mmol/L Potassium 4.1 (3.6-5.0) mmol/L Chloride 95.8 L (98-107) mmol/L Carbon Dioxide 33 H (22-30) mmol/L BUN 12 (9-20) mg/dL Creatinine 0.9 (0.8-1.5) mg/dL Glucose 98 (75-100) mg/dL Calcium 8.7 (8.4-10.2) mg/dL AST 14 (5-40) units/L ALT 14 (7-56) units/L Alkaline Phosphatase 80 (35-129) units/L Total Protein 5.8 L (6.3-8.2) g/dL Albumin 3.0 L (3.9-5) g/dL Assessment and Plan Acute hypoxic respiratory failure Morbid Obesity Severe pulmonary HTN Mild Cardiomyopathy EF 40-45%
--- NOTE | 2017-08-12 12:09 | Progress Note ---
Assessment and Plan Chronic hypercapniac respiratory failure. Secondary to super morbid obesity Exercise hypoxemia, secondary to the above Sepsis, question about pneumonia Obesity hyperventilation syndrome with acute decompensation. Clinical picture highly suspicious of pulmonary hypertension triggering heart failure decompensation, secondary to chronic hypoxemia and RUSSEL Pulmonary hypertension most likely class 2/3, see echocardiogram Congestive heart failure with low ejection fraction. Etiology to be determined RUSSEL. Probably active, never evaluated. The patient is scheduled for sleep study has an outpatient Super morbid obesity. Triggering all of the above Recommendations Complete ABX, monitor cultures. Continue oxygen support Empirical BiPAP at night as tolerated Elevated OH bed Cardiology evaluation for cardiomyopathy Avoid sedatives and benzodiazepines/narcotics Phyysical therapy Will need outpatient sleep study evaluation, once the patient is clinically stable for it Needs full nutritional review/consult, with diet for aggressive weight reduction In case of progressive deterioration from respiratory standpoint, intervention with early tracheotomy may be necessary for both RUSSEL/obesity hypoventilation syndrome DVT prophylaxis Subjective Date of service: 08/12/17 Principal diagnosis: heart failure, hypercapnic respiratory failure, severe morbid obesity Interval history: SOB with desat's walking to the restroom with physical TX. No chest pain Objective Vital Signs - 12hr 08/12/17 08/12/17 07:26 10:00 Temperature 97.9 F Pulse Rate 83 Respiratory 18 Rate Blood Pressure 103/49 O2 Sat by Pulse 94 94 Oximetry Constitutional: no acute distress, alert, other (supermorbidly obese) Eyes: non-icteric ENT: oropharynx moist, other (Mallampati 4) Effort: normal Ascultation: Bilateral: diminished breath sounds (secondary to body habitus) Percussion: Bilateral: not dull Cardiovascular: regular rate and rhythm Gastrointestinal: soft, non-tender Extremities: edema, other (bilateral lymphedema with chronic changes) Neurologic: normal mental status, non-focal exam Psychiatric: mood appropriate CBC and BMP: 08/12/17 04:31 08/12/17 04:31 ABG, PT/INR, D-dimer: ABG POC ABG pH 7.390 (7.35-7.45) 08/10/17 14:50 POC ABG pCO2 65.9 (35-45) H 08/10/17 14:50 POC ABG pO2 84 (80-105) 08/10/17 14:50 POC ABG HCO3 39.9 08/10/17 14:50 POC ABG Total CO2 42 08/10/17 14:50 POC ABG O2 Sat 96 08/10/17 14:50 PT/INR, D-dimer PT 16.2 Sec. (12.2-14.9) H 08/07/17 16:58 INR 1.23 (0.87-1.13) H 08/07/17 16:58 Abnormal lab findings: Abnormal Labs 08/07/17 08/07/17 08/07/17 16:58 16:58 16:58 WBC 16.1 H RBC 5.44 H Hgb Hct MCV 74 L MCH 22 L MCHC 29 L RDW 21.7 H [place] % (Auto) Seg Neutrophils % Seg Neuts % (Manual) 87.0 H Lymphocytes % (Manual) 7.0 L Monocytes % (Manual) Eosinophils % (Manual) Basophils % (Manual) 2.0 H Seg Neutrophils # Man 14.0 H Lymphocytes # (Manual) 1.1 L Monocytes # (Manual) Eosinophils # (Manual) Basophils # (Manual) 0.3 H PT 16.2 H INR 1.23 H POC ABG pCO2 VBG pH Chloride 96.2 L Carbon Dioxide 31 H Glucose Lactic Acid Calcium NT-Pro-B Natriuret Pep Total Protein 5.8 L Albumin 3.0 L TSH 08/07/17 08/07/17 08/07/17 16:58 16:58 16:58 WBC RBC Hgb Hct MCV MCH MCHC RDW [place] % (Auto) Seg Neutrophils % Seg Neuts % (Manual) Lymphocytes % (Manual) Monocytes % (Manual) Eosinophils % (Manual) Basophils % (Manual) Seg Neutrophils # Man Lymphocytes # (Manual) Monocytes # (Manual) Eosinophils # (Manual) Basophils # (Manual) PT INR POC ABG pCO2 VBG pH 7.463 H Chloride Carbon Dioxide Glucose Lactic Acid 2.10 H* Calcium NT-Pro-B Natriuret Pep 2205 H Total Protein Albumin TSH 08/09/17 08/09/17 08/10/17 10:57 13:37 08:04 WBC 14.5 H RBC Hgb 10.8 L 10.8 L Hct 35.1 L MCV 74 L 76 L MCH 23 L 23 L MCHC 31 L 30 L RDW 21.2 H 21.0 H [place] % (Auto) Seg Neutrophils % 75.4 H Seg Neuts % (Manual) Lymphocytes % (Manual) Monocytes % (Manual) 9.0 H Eosinophils % (Manual) 5.0 H Basophils % (Manual) Seg Neutrophils # Man 9.3 H Lymphocytes # (Manual) Monocytes # (Manual) 1.3 H Eosinophils # (Manual) 0.7 H Basophils # (Manual) PT INR POC ABG pCO2 VBG pH Chloride 96.9 L Carbon Dioxide 32 H Glucose Lactic Acid Calcium 8.3 L NT-Pro-B Natriuret Pep Total Protein Albumin TSH 08/10/17 08/10/17 08/10/17 08:04 08:04 14:50 WBC RBC Hgb Hct MCV MCH MCHC RDW [place] % (Auto) Seg Neutrophils % Seg Neuts % (Manual) Lymphocytes % (Manual) Monocytes % (Manual) Eosinophils % (Manual) Basophils % (Manual) Seg Neutrophils # Man Lymphocytes # (Manual) Monocytes # (Manual) Eosinophils # (Manual) Basophils # (Manual) PT INR POC ABG pCO2 65.9 H VBG pH Chloride Carbon Dioxide 32 H Glucose 115 H Lactic Acid Calcium NT-Pro-B Natriuret Pep Total Protein Albumin TSH 4.900 H 08/11/17 08/11/17 08/11/17 07:12 07:12 07:12 WBC RBC Hgb 10.3 L Hct MCV 76 L MCH 22 L MCHC 29 L RDW 21.4 H [place] % (Auto) 8.8 H Seg Neutrophils % Seg Neuts % (Manual) Lymphocytes % (Manual) Monocytes % (Manual) Eosinophils % (Manual) Basophils % (Manual) Seg Neutrophils # Man Lymphocytes # (Manual) Monocytes # (Manual) Eosinophils # (Manual) Basophils # (Manual) PT INR POC ABG pCO2 VBG pH Chloride Carbon Dioxide 35 H Glucose 105 H Lactic Acid Calcium NT-Pro-B Natriuret Pep Total Protein 5.8 L Albumin 3.1 L TSH 4.780 H 08/12/17 08/12/17 04:31 04:31 WBC RBC Hgb 10.7 L Hct 35.3 L MCV 76 L MCH 23 L MCHC 30 L RDW 21.3 H [place] % (Auto) Seg Neutrophils % Seg Neuts % (Manual) Lymphocytes % (Manual) Monocytes % (Manual) Eosinophils % (Manual) Basophils % (Manual) Seg Neutrophils # Man Lymphocytes # (Manual) Monocytes # (Manual) Eosinophils # (Manual) Basophils # (Manual) PT INR POC ABG pCO2 VBG pH Chloride 95.8 L Carbon Dioxide 33 H Glucose Lactic Acid Calcium NT-Pro-B Natriuret Pep Total Protein 5.8 L Albumin 3.0 L TSH
[2017-08-12] MEDS: LOVENOX SUB-Q SCH (22:33)
[2017-08-13] MEDS: PROVENTIL IH PRN (00:59)
[2017-08-13] MEDS: CLEOCIN 600 MG/50 mL 600 MG/50 ML BAG IV SCH ×3 (06:00→22:58)
--- NOTE | 2017-08-13 08:57 | Progress Note ---
Assessment and Plan Acute hypoxic respiratory failure Morbid Obesity Severe pulmonary HTN Pneumonia Mild Cardiomyopathy EF 40-45% likely onesity induced Recommendations: Supportive medical care per primary service Patient is not a candidate for any kind of further cardiac testing due to weight restrictions Prognosis is very poor Will sign off Subjective Date of service: 08/13/17 Principal diagnosis: heart failure, hypercapnic respiratory failure, severe morbid obesity Interval history: Patient is lying in bed with the BiPAP on. No events recorded overnight Objective Vital Signs Temp Pulse Pulse Resp Resp Resp BP 08/13/17 07:50 98 H 23 08/13/17 04:22 22 08/13/17 04:21 20 08/13/17 01:14 109 H 23 08/13/17 01:05 111 H 18 08/13/17 01:00 98.3 F 97 H 20 08/13/17 00:50 114 H 20 08/12/17 16:11 98.9 F 104 H 18 113/61 08/12/17 10:00 BP Pulse Ox 08/13/17 07:50 85 08/13/17 04:22 08/13/17 04:21 08/13/17 01:14 94 08/13/17 01:05 08/13/17 01:00 118/78 97 08/13/17 00:50 08/12/17 16:11 80 L 08/12/17 10:00 94 - Physical Examination General: Other (morbidly obese) Cardiac: Positive: Tachycardia Lungs: Positive: Ventilated Respirations Abdomen: Positive: Soft Extremities: Present: edema
[2017-08-13] MEDS: LEVAQUIN PO SCH (09:56)
[2017-08-13] MEDS: LASIX PO SCH (09:56)
--- NOTE | 2017-08-13 11:07 | Progress Note ---
Assessment and Plan Hypoxemia related to Chronic hypercapniac respiratory failure. Secondary to super morbid obesity Chest congestion. Immobility Sepsis, question about pneumonia. Chest is actually clearing up Obesity hyperventilation syndrome with acute decompensation. Clinical picture highly suspicious of pulmonary hypertension triggering heart failure decompensation, secondary to chronic hypoxemia and RUSSEL Pulmonary hypertension most likely class 2/3, see echocardiogram. Cardiology opinion noted Congestive heart failure with low ejection fraction. RUSSEL. Probably active, never evaluated. The patient is scheduled for sleep study has an outpatient Super morbid obesity. Triggering all of the above Recommendations I'm ordering stat ABGs Also stat chest x-ray Increase pressure support CPAP to 14/8 cm The patient had chest x-rays consider gentle diuretics BNP If there is no immediate improvement, consider transfer to ICU for close monitoring of NIV Prognosis is poor in case of respiratory deterioration and need for intubation. I also agree with cardiology comments regarding weight limitations of care Discussed with patient, no family available at the bedside. Critical care time was 31 minutes of [id number] evaluation coordination of care. Subjective Date of service: 08/13/17 Principal diagnosis: heart failure, hypercapnic respiratory failure, severe morbid obesity Interval history: Called by RN to evaluate patient after he reportedly had problems with oximetry this morning. Is a little bit more sleepy this morning but able to follow my conversation. Currently on BiPAP 12/5 cm, FiO2 100%. Denies cough or expectoration. Reportedly no breathing treatments yet Objective Vital Signs - 12hr 08/13/17 08/13/17 08/13/17 00:50 01:00 01:05 Temperature 98.3 F Pulse Rate 97 H Pulse Rate [ 114 H 111 H Anterior Bilateral Throughout] Respiratory 20 Rate Respiratory 20 18 Rate [Anterior Bilateral Throughout] Respiratory Rate [Chest] Blood Pressure 118/78 [Left] O2 Sat by Pulse 97 Oximetry 08/13/17 08/13/17 08/13/17 01:14 04:21 04:22 Temperature Pulse Rate 109 H Pulse Rate [ Anterior Bilateral Throughout] Respiratory 23 22 Rate Respiratory Rate [Anterior Bilateral Throughout] Respiratory 20 Rate [Chest] Blood Pressure [Left] O2 Sat by Pulse 94 Oximetry 08/13/17 07:50 Temperature Pulse Rate 98 H Pulse Rate [ Anterior Bilateral Throughout] Respiratory 23 Rate Respiratory Rate [Anterior Bilateral Throughout] Respiratory Rate [Chest] Blood Pressure [Left] O2 Sat by Pulse 85 Oximetry Constitutional: no acute distress, alert, other (supermorbidly obese) Eyes: non-icteric ENT: oropharynx moist, other (Mallampati 4) Neck: other (extremely large in circumference) Effort: normal Ascultation: Bilateral: diminished breath sounds, rhonchi (clearing with cough) Percussion: Bilateral: not dull Cardiovascular: regular rate and rhythm Gastrointestinal: soft, non-tender Extremities: edema, other (bilateral lymphedema with chronic changes) Neurologic: normal mental status, non-focal exam Psychiatric: mood appropriate CBC and BMP: 08/12/17 04:31 08/12/17 04:31 ABG, PT/INR, D-dimer: ABG POC ABG pH 7.390 (7.35-7.45) 08/10/17 14:50 POC ABG pCO2 65.9 (35-45) H 08/10/17 14:50 POC ABG pO2 84 (80-105) 08/10/17 14:50 POC ABG HCO3 39.9 08/10/17 14:50 POC ABG Total CO2 42 08/10/17 14:50 POC ABG O2 Sat 96 08/10/17 14:50 PT/INR, D-dimer PT 16.2 Sec. (12.2-14.9) H 08/07/17 16:58 INR 1.23 (0.87-1.13) H 08/07/17 16:58 Abnormal lab findings: Abnormal Labs 08/07/17 08/07/17 08/07/17 16:58 16:58 16:58 WBC 16.1 H RBC 5.44 H Hgb Hct MCV 74 L MCH 22 L MCHC 29 L RDW 21.7 H [place] % (Auto) Seg Neutrophils % Seg Neuts % (Manual) 87.0 H Lymphocytes % (Manual) 7.0 L Monocytes % (Manual) Eosinophils % (Manual) Basophils % (Manual) 2.0 H Seg Neutrophils # Man 14.0 H Lymphocytes # (Manual) 1.1 L Monocytes # (Manual) Eosinophils # (Manual) Basophils # (Manual) 0.3 H PT 16.2 H INR 1.23 H POC ABG pCO2 VBG pH Chloride 96.2 L Carbon Dioxide 31 H Glucose Lactic Acid Calcium NT-Pro-B Natriuret Pep Total Protein 5.8 L Albumin 3.0 L TSH 08/07/17 08/07/17 08/07/17 16:58 16:58 16:58 WBC RBC Hgb Hct MCV MCH MCHC RDW [place] % (Auto) Seg Neutrophils % Seg Neuts % (Manual) Lymphocytes % (Manual) Monocytes % (Manual) Eosinophils % (Manual) Basophils % (Manual) Seg Neutrophils # Man Lymphocytes # (Manual) Monocytes # (Manual) Eosinophils # (Manual) Basophils # (Manual) PT INR POC ABG pCO2 VBG pH 7.463 H Chloride Carbon Dioxide Glucose Lactic Acid 2.10 H* Calcium NT-Pro-B Natriuret Pep 2205 H Total Protein Albumin TSH 08/09/17 08/09/17 08/10/17 10:57 13:37 08:04 WBC 14.5 H RBC Hgb 10.8 L 10.8 L Hct 35.1 L MCV 74 L 76 L MCH 23 L 23 L MCHC 31 L 30 L RDW 21.2 H 21.0 H [place] % (Auto) Seg Neutrophils % 75.4 H Seg Neuts % (Manual) Lymphocytes % (Manual) Monocytes % (Manual) 9.0 H Eosinophils % (Manual) 5.0 H Basophils % (Manual) Seg Neutrophils # Man 9.3 H Lymphocytes # (Manual) Monocytes # (Manual) 1.3 H Eosinophils # (Manual) 0.7 H Basophils # (Manual) PT INR POC ABG pCO2 VBG pH Chloride 96.9 L Carbon Dioxide 32 H Glucose Lactic Acid Calcium 8.3 L NT-Pro-B Natriuret Pep Total Protein Albumin TSH 08/10/17 08/10/17 08/10/17 08:04 08:04 14:50 WBC RBC Hgb Hct MCV MCH MCHC RDW [place] % (Auto) Seg Neutrophils % Seg Neuts % (Manual) Lymphocytes % (Manual) Monocytes % (Manual) Eosinophils % (Manual) Basophils % (Manual) Seg Neutrophils # Man Lymphocytes # (Manual) Monocytes # (Manual) Eosinophils # (Manual) Basophils # (Manual) PT INR POC ABG pCO2 65.9 H VBG pH Chloride Carbon Dioxide 32 H Glucose 115 H Lactic Acid Calcium NT-Pro-B Natriuret Pep Total Protein Albumin TSH 4.900 H 08/11/17 08/11/17 08/11/17 07:12 07:12 07:12 WBC RBC Hgb 10.3 L Hct MCV 76 L MCH 22 L MCHC 29 L RDW 21.4 H [place] % (Auto) 8.8 H Seg Neutrophils % Seg Neuts % (Manual) Lymphocytes % (Manual) Monocytes % (Manual) Eosinophils % (Manual) Basophils % (Manual) Seg Neutrophils # Man Lymphocytes # (Manual) Monocytes # (Manual) Eosinophils # (Manual) Basophils # (Manual) PT INR POC ABG pCO2 VBG pH Chloride Carbon Dioxide 35 H Glucose 105 H Lactic Acid Calcium NT-Pro-B Natriuret Pep Total Protein 5.8 L Albumin 3.1 L TSH 4.780 H 08/12/17 08/12/17 04:31 04:31 WBC RBC Hgb 10.7 L Hct 35.3 L MCV 76 L MCH 23 L MCHC 30 L RDW 21.3 H [place] % (Auto) Seg Neutrophils % Seg Neuts % (Manual) Lymphocytes % (Manual) Monocytes % (Manual) Eosinophils % (Manual) Basophils % (Manual) Seg Neutrophils # Man Lymphocytes # (Manual) Monocytes # (Manual) Eosinophils # (Manual) Basophils # (Manual) PT INR POC ABG pCO2 VBG pH Chloride 95.8 L Carbon Dioxide 33 H Glucose Lactic Acid Calcium NT-Pro-B Natriuret Pep Total Protein 5.8 L Albumin 3.0 L TSH
--- NOTE | 2017-08-13 12:47 | Vascular Lab Report ---
LOWER EXTREMITY VENOUS DUPLEX: REASON FOR EXAM: Pain and swelling of the lower extremities. COMMENTS ON THE RIGHT: All veins visualized are freely compressible without evidence of internal echogenicity. Flow is spontaneous and phasic throughout. COMMENTS ON THE LEFT: All veins visualized are freely compressible without evidence of internal echogenicity. Flow is spontaneous and phasic throughout. IMPRESSION: No evidence of acute or chronic deep venous thrombosis in either lower extremity. The study was severely limited in scope because of patient body habitus and extreme swelling. Visualization of the veins of the lower extremities was very limited.
--- NOTE | 2017-08-13 12:50 | Vascular Lab Report ---
LEFT UPPER EXTREMITY VENOUS DUPLEX: REASON FOR EXAM: Pain and swelling of the left upper extremity COMMENTS ON THE LEFT: All arm veins visualized are freely compressible without evidence of internal echogenicity. The subclavian and internal jugular veins are free of thrombus. Flow is spontaneous and phasic throughout COMMENTS ON THE RIGHT: A limited study of the jugular and subclavian veins shows no evidence of thrombus. IMPRESSION: No evidence of acute or chronic deep venous thrombosis in the left upper extremity.
--- NOTE | 2017-08-13 13:50 | XRay Report ---
AP CHEST: HISTORY: Dyspnea Mild cardiomegaly and borderline central pulmonary venous congestion are identified. The lungs are clear. No evidence for consolidation, large pleural effusion or pneumothorax. No overwhelming change since 08/09/17. IMPRESSION: Cardiomegaly and pulmonary venous congestion but no CHF.
[2017-08-13] MEDS: LOVENOX SUB-Q SCH (22:58)
[2017-08-14] MEDS: CLEOCIN 600 MG/50 mL 600 MG/50 ML BAG IV SCH ×3 (05:56→21:45)
[2017-08-14] MEDS: LASIX PO SCH (09:54)
[2017-08-14] MEDS: LEVAQUIN PO SCH (09:54)
[2017-08-14] MEDS: PROVENTIL IH PRN (09:59)
[2017-08-14] MEDS ORDERED: LASIX IV SCH ×2 (11:00→12:00)
[2017-08-14] MEDS ORDERED: HEPARIN 10,000 UNITS/10 ML IV ONE (11:00)
--- NOTE | 2017-08-14 11:01 | Progress Note ---
Assessment and Plan Acute/Chronic hypercapniac respiratory failure. Secondary to super morbid obesity.Unstable, worsening hypoxemia Chest congestion. Immobility Sepsis, question about pneumonia. Chest w/o infiltrates,bronchitis Obesity hyperventilation syndrome with acute decompensation. Pulmonary hypertension most likely class 2/3, see echocardiogram. Cardiology opinion noted Congestive heart failure with low ejection fraction. RUSSEL. Probably active, never evaluated per family Super morbid obesity. Triggering all of the above Recommendations Lasix to 40 mg BID IV steroids BPAP to 20/10 cm BNP check secure IV access, PICC line Agree with transfer to ICU for close monitoring of NIV,diuresis,hypoxemia Prognosis is poor in case of respiratory deterioration and need for intubation. Discussed with hospitalist and ICU team Discussed with patient, family at the bedside. All questions answered, they agree with [place] plan as stated Critical care time was 31 minutes of [id number] evaluation coordination of care. Subjective Date of service: 08/14/17 Principal diagnosis: heart failure, hypercapnic respiratory failure, severe morbid obesity Interval history: Some SOB this morning. Cough,some sputum Objective Vital Signs - 12hr 08/14/17 08/14/17 08/14/17 04:00 04:41 04:54 Temperature 98.9 F Pulse Rate 107 H 102 H Pulse Rate [ Anterior Bilateral Throughout] Respiratory 20 Rate Respiratory Rate [Anterior Bilateral Throughout] Respiratory 20 Rate [Chest] Blood Pressure Blood Pressure 109/49 [Left] O2 Sat by Pulse 83 L 97 Oximetry 08/14/17 08/14/17 08/14/17 08:29 09:45 09:47 Temperature 97.8 F Pulse Rate 107 H 111 H Pulse Rate [ Anterior Bilateral Throughout] Respiratory 18 25 H Rate Respiratory Rate [Anterior Bilateral Throughout] Respiratory Rate [Chest] Blood Pressure 102/47 Blood Pressure [Left] O2 Sat by Pulse 81 L 78 L 79 L Oximetry 08/14/17 09:59 Temperature Pulse Rate Pulse Rate [ 111 H Anterior Bilateral Throughout] Respiratory Rate Respiratory 24 Rate [Anterior Bilateral Throughout] Respiratory Rate [Chest] Blood Pressure Blood Pressure [Left] O2 Sat by Pulse Oximetry Constitutional: no acute distress, alert, other (supermorbidly obese) Eyes: non-icteric ENT: oropharynx moist, other (Mallampati 4) Neck: other (extremely large in circumference) Effort: normal Ascultation: Right: rhonchi ( ), Bilateral: diminished breath sounds, wheezes ( mild) Percussion: Bilateral: not dull Cardiovascular: regular rate and rhythm Gastrointestinal: normoactive bowel sounds, absent bowel sounds, soft, non- tender Extremities: edema, other (bilateral lymphedema with chronic changes) Neurologic: normal mental status, non-focal exam Psychiatric: mood appropriate CBC and BMP: 08/12/17 04:31 08/12/17 04:31 ABG, PT/INR, D-dimer: ABG POC ABG pH 7.420 (7.35-7.45) 08/13/17 11:34 POC ABG pCO2 61.1 (35-45) H 08/13/17 11:34 POC ABG pO2 57 (80-105) L 08/13/17 11:34 POC ABG HCO3 39.7 08/13/17 11:34 POC ABG Total CO2 41 08/13/17 11:34 POC ABG O2 Sat 89 08/13/17 11:34 PT/INR, D-dimer PT 16.2 Sec. (12.2-14.9) H 08/07/17 16:58 INR 1.23 (0.87-1.13) H 08/07/17 16:58 Abnormal lab findings: Abnormal Labs 08/07/17 08/07/17 08/07/17 16:58 16:58 16:58 WBC 16.1 H RBC 5.44 H Hgb Hct MCV 74 L MCH 22 L MCHC 29 L RDW 21.7 H [place] % (Auto) Seg Neutrophils % Seg Neuts % (Manual) 87.0 H Lymphocytes % (Manual) 7.0 L Monocytes % (Manual) Eosinophils % (Manual) Basophils % (Manual) 2.0 H Seg Neutrophils # Man 14.0 H Lymphocytes # (Manual) 1.1 L Monocytes # (Manual) Eosinophils # (Manual) Basophils # (Manual) 0.3 H PT 16.2 H INR 1.23 H POC ABG pCO2 POC ABG pO2 VBG pH Chloride 96.2 L Carbon Dioxide 31 H Glucose Lactic Acid Calcium NT-Pro-B Natriuret Pep Total Protein 5.8 L Albumin 3.0 L TSH 08/07/17 08/07/17 08/07/17 16:58 16:58 16:58 WBC RBC Hgb Hct MCV MCH MCHC RDW [place] % (Auto) Seg Neutrophils % Seg Neuts % (Manual) Lymphocytes % (Manual) Monocytes % (Manual) Eosinophils % (Manual) Basophils % (Manual) Seg Neutrophils # Man Lymphocytes # (Manual) Monocytes # (Manual) Eosinophils # (Manual) Basophils # (Manual) PT INR POC ABG pCO2 POC ABG pO2 VBG pH 7.463 H Chloride Carbon Dioxide Glucose Lactic Acid 2.10 H* Calcium NT-Pro-B Natriuret Pep 2205 H Total Protein Albumin TSH 08/09/17 08/09/17 08/10/17 10:57 13:37 08:04 WBC 14.5 H RBC Hgb 10.8 L 10.8 L Hct 35.1 L MCV 74 L 76 L MCH 23 L 23 L MCHC 31 L 30 L RDW 21.2 H 21.0 H [place] % (Auto) Seg Neutrophils % 75.4 H Seg Neuts % (Manual) Lymphocytes % (Manual) Monocytes % (Manual) 9.0 H Eosinophils % (Manual) 5.0 H Basophils % (Manual) Seg Neutrophils # Man 9.3 H Lymphocytes # (Manual) Monocytes # (Manual) 1.3 H Eosinophils # (Manual) 0.7 H Basophils # (Manual) PT INR POC ABG pCO2 POC ABG pO2 VBG pH Chloride 96.9 L Carbon Dioxide 32 H Glucose Lactic Acid Calcium 8.3 L NT-Pro-B Natriuret Pep Total Protein Albumin TSH 08/10/17 08/10/17 08/10/17 08:04 08:04 14:50 WBC RBC Hgb Hct MCV MCH MCHC RDW [place] % (Auto) Seg Neutrophils % Seg Neuts % (Manual) Lymphocytes % (Manual) Monocytes % (Manual) Eosinophils % (Manual) Basophils % (Manual) Seg Neutrophils # Man Lymphocytes # (Manual) Monocytes # (Manual) Eosinophils # (Manual) Basophils # (Manual) PT INR POC ABG pCO2 65.9 H POC ABG pO2 VBG pH Chloride Carbon Dioxide 32 H Glucose 115 H Lactic Acid Calcium NT-Pro-B Natriuret Pep Total Protein Albumin TSH 4.900 H 08/11/17 08/11/17 08/11/17 07:12 07:12 07:12 WBC RBC Hgb 10.3 L Hct MCV 76 L MCH 22 L MCHC 29 L RDW 21.4 H [place] % (Auto) 8.8 H Seg Neutrophils % Seg Neuts % (Manual) Lymphocytes % (Manual) Monocytes % (Manual) Eosinophils % (Manual) Basophils % (Manual) Seg Neutrophils # Man Lymphocytes # (Manual) Monocytes # (Manual) Eosinophils # (Manual) Basophils # (Manual) PT INR POC ABG pCO2 POC ABG pO2 VBG pH Chloride Carbon Dioxide 35 H Glucose 105 H Lactic Acid Calcium NT-Pro-B Natriuret Pep Total Protein 5.8 L Albumin 3.1 L TSH 4.780 H 08/12/17 08/12/17 08/13/17 04:31 04:31 11:34 WBC RBC Hgb 10.7 L Hct 35.3 L MCV 76 L MCH 23 L MCHC 30 L RDW 21.3 H [place] % (Auto) Seg Neutrophils % Seg Neuts % (Manual) Lymphocytes % (Manual) Monocytes % (Manual) Eosinophils % (Manual) Basophils % (Manual) Seg Neutrophils # Man Lymphocytes # (Manual) Monocytes # (Manual) Eosinophils # (Manual) Basophils # (Manual) PT INR POC ABG pCO2 61.1 H POC ABG pO2 57 L VBG pH Chloride 95.8 L Carbon Dioxide 33 H Glucose Lactic Acid Calcium NT-Pro-B Natriuret Pep Total Protein 5.8 L Albumin 3.0 L TSH Chest x-ray: report reviewed, image reviewed
[2017-08-14 11:49] LABS: Hematocrit 36.7 % (35.5-45.6); Hemoglobin 10.7 gm/dl (11.8-15.2)
[2017-08-14 12:00] LABS: INR 1.2 (0.87-1.13)
--- NOTE | 2017-08-14 16:00 | XRay Report ---
AP CHEST: 08/14/17 CLINICAL: PICC line insertion. FINDINGS: Since yesterday's exam, a left PICC line has been inserted and the PICC line tip is in the lower SVC. Stable cardiomegaly and central vascular congestion. No pneumothorax. IMPRESSION: Satisfactory left PICC line placement.
[2017-08-14] MEDS ORDERED: LASIX ONE ×2 (16:15→17:54)
--- NOTE | 2017-08-14 16:53 | Progress Note ---
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 and increase EPAP/IPAP, was 69% on NRB -counseled family that he will not be dc until he is more stable -continue BIPAP prn, will need neb, NIV and HHS at home --obstructive sleep apnea/obesity hypoventilation syndrome; , BiPAP at night Oxygen, duo nebs, pulmonary following, out patient sleep study --Severe pulmonary hypertension on echocardiogram; diuretics, fluid restriction , --Left lower lobe pneumonia/atelectasis/community-acquired; continue Levaquin , cultures negative to date , supportive care --Sepsis; continue empiric antibiotics, follow cultures, IV fluids --Lactic acidosis; continue IV fluids, IV antibiotics, follow levels --Leukocytosis secondary to sepsis; trending down --systolic Congestive heart failure; echocardiogram findings reviewed ejection fraction 40- 45%, severe pulmonary hypertension, gentle diuresis, -cardiology consult, continue diuresis --Chronic massive lymphedema; supportive care, wound care and lymphedema care as needed Lower extremity and left upper extremity venous Doppler negative for DVT --Morbid obesity; BMI of 82; counseling done, patient may benefit from bariatric surgical consultation or weight reduction program when medically stable --Physical therapy occupational therapy as tolerated --Discharge planning. Case management, possible home with home health when patient is stable Plan of care reviewed with the patient and his nurse, family members, sister at the bedside and answered all their questions Will need referal to weight loss program when clinically improved Disposition; possible discharge home with home health, home oxygen, outpatient sleep studies when medically stable History Interval history: Patient denies sob despite hypoxia and wants to go home RT reports worsening hypoxia Review of systems Constitutional: No fevers, no malaise, no joint pains CVS: No chest pain, no orthopnea, no dyspnea on exertion, no pedal edema GI: No abdominal pain, no diarrhea, no vomiting, no constipation Respiratory: No shortness of breath, no wheezing, no coughing Hospitalist Physical - Physical exam Narrative exam: General.: Appears well, no distress, nontoxic, morbidly obese HEENT: Moist mucous membranes, extraocular muscles intact, no lymphadenopathy Neck: supple Cardiac: S1-S2 heard Lungs: decreased air entry, wheezing, Abdomen: soft , nontender, nondistended, bowel sounds positive Extremities: pitting edema in all four extremities Skin: no rash or lesions Neurologic: no gross focal deficits Psych: appropriate behavior, appropriate mood, corporative, judgment intact - Constitutional Vitals: Temp Pulse Resp BP Pulse Ox 97.8 F 111 H 24 102/47 79 L 08/14/17 08:29 08/14/17 09:59 08/14/17 09:59 08/14/17 08:29 08/14/17 09:47 General appearance: Present: mild distress, obese (morbidly obese) Results - Labs CBC & Chem 7: 08/14/17 10:36 08/12/17 04:31 Labs: Laboratory Last Values WBC 8.5 K/mm3 (4.5-11.0) 08/12/17 04:31 RBC 4.65 M/mm3 (3.65-5.03) 08/12/17 04:31 Hgb 10.7 gm/dl (11.8-15.2) L 08/14/17 10:36 Hct 36.7 % (35.5-45.6) 08/14/17 10:36 MCV 76 fl (84-94) L 08/12/17 04:31 MCH 23 pg (28-32) L 08/12/17 04:31 MCHC 30 % (32-34) L 08/12/17 04:31 RDW 21.3 % (13.2-15.2) H 08/12/17 04:31 Plt Count 278 K/mm3 (140-440) 08/14/17 10:36 Lymph % (Auto) 18.2 % (13.4-35.0) 08/12/17 04:31 [place] % (Auto) 7.0 % (0.0-7.3) 08/12/17 04:31 Eos % (Auto) 4.0 % (0.0-4.3) 08/12/17 04:31 Baso % (Auto) 0.8 % (0.0-1.8) 08/12/17 04:31 Lymph # 1.5 K/mm3 (1.2-5.4) 08/12/17 04:31 [place] # 0.6 K/mm3 (0.0-0.8) 08/12/17 04:31 Eos # 0.3 K/mm3 (0.0-0.4) 08/12/17 04:31 Baso # 0.1 K/mm3 (0.0-0.1) 08/12/17 04:31 Add Manual Diff Complete 08/09/17 10:57 Total Counted 100 08/09/17 10:57 Seg Neutrophils % 70.0 % (40.0-70.0) 08/12/17 04:31 Seg Neuts % (Manual) 64.0 % (40.0-70.0) 08/09/17 10:57 Band Neutrophils % 4.0 % 08/09/17 10:57 Lymphocytes % (Manual) 15.0 % (13.4-35.0) 08/09/17 10:57 Reactive Lymphs % (Man) 3.0 % 08/09/17 10:57 Monocytes % (Manual) 9.0 % (0.0-7.3) H 08/09/17 10:57 Eosinophils % (Manual) 5.0 % (0.0-4.3) H 08/09/17 10:57 Basophils % (Manual) 0 % (0.0-1.8) 08/09/17 10:57 Metamyelocytes % 0 % 08/09/17 10:57 Myelocytes % 0 % 08/09/17 10:57 Promyelocytes % 0 % 08/09/17 10:57 Blast Cells % 0 % 08/09/17 10:57 Nucleated RBC % Not Reportable 08/09/17 10:57 Seg Neutrophils # 5.9 K/mm3 (1.8-7.7) 08/12/17 04:31 Seg Neutrophils # Man 9.3 K/mm3 (1.8-7.7) H 08/09/17 10:57 Band Neutrophils # 0.6 K/mm3 08/09/17 10:57 Lymphocytes # (Manual) 2.2 K/mm3 (1.2-5.4) 08/09/17 10:57 Abs React Lymphs (Man) 0.4 K/mm3 08/09/17 10:57 Monocytes # (Manual) 1.3 K/mm3 (0.0-0.8) H 08/09/17 10:57 Eosinophils # (Manual) 0.7 K/mm3 (0.0-0.4) H 08/09/17 10:57 Basophils # (Manual) 0.0 K/mm3 (0.0-0.1) 08/09/17 10:57 Metamyelocytes # 0.0 K/mm3 08/09/17 10:57 Myelocytes # 0.0 K/mm3 08/09/17 10:57 Promyelocytes # 0.0 K/mm3 08/09/17 10:57 Blast Cells # 0.0 K/mm3 08/09/17 10:57 WBC Morphology Not Reportable 08/09/17 10:57 Hypersegmented Neuts Not Reportable 08/09/17 10:57 Hyposegmented Neuts Not Reportable 08/09/17 10:57 Hypogranular Neuts Not Reportable 08/09/17 10:57 Smudge Cells Not Reportable 08/09/17 10:57 Toxic Granulation Not Reportable 08/09/17 10:57 Toxic Vacuolation Not Reportable 08/09/17 10:57 Dohle Bodies Not Reportable 08/09/17 10:57 Pelger-Huet Anomaly Not Reportable 08/09/17 10:57 Noa Rods Not Reportable 08/09/17 10:57 Platelet Estimate Consistent w auto 08/09/17 10:57 Clumped Platelets Not Reportable 08/09/17 10:57 Plt Clumps, EDTA Not Reportable 08/09/17 10:57 Large Platelets Not Reportable 08/09/17 10:57 Giant Platelets Few 08/09/17 10:57 Platelet Satelliting Not Reportable 08/09/17 10:57 Plt Morphology Comment Not Reportable 08/09/17 10:57 RBC Morphology Not Reportable 08/09/17 10:57 Dimorphic RBCs Not Reportable 08/09/17 10:57 Polychromasia Not Reportable 08/09/17 10:57 Hypochromasia 1+ 08/09/17 10:57 Poikilocytosis 1+ 08/09/17 10:57 Anisocytosis 1+ 08/09/17 10:57 Microcytosis 1+ 08/09/17 10:57 Macrocytosis Not Reportable 08/09/17 10:57 Spherocytes Not Reportable 08/09/17 10:57 Pappenheimer Bodies Not Reportable 08/09/17 10:57 Sickle Cells Not Reportable 08/09/17 10:57 Target Cells Not Reportable 08/09/17 10:57 Tear Drop Cells Not Reportable 08/09/17 10:57 Ovalocytes Few 08/09/17 10:57 Stomatocytes 1+ 08/09/17 10:57 Helmet Cells Not Reportable 08/09/17 10:57 [place] Bodies Not Reportable 08/09/17 10:57 [place] Rings Not Reportable 08/09/17 10:57 [place] Cells Not Reportable 08/09/17 10:57 Bite Cells Not Reportable 08/09/17 10:57 Crenated Cell Not Reportable 08/09/17 10:57 Elliptocytes Not Reportable 08/09/17 10:57 Acanthocytes (Spur) Not Reportable 08/09/17 10:57 Rouleaux Not Reportable 08/09/17 10:57 Hemoglobin C Crystals Not Reportable 08/09/17 10:57 Schistocytes Not Reportable 08/09/17 10:57 Malaria parasites Not Reportable 08/09/17 10:57 Cuco Bodies Not Reportable 08/09/17 10:57 Hem Pathologist Commnt No 08/09/17 10:57 PT 15.8 Sec. (12.2-14.9) H 08/14/17 10:36 INR 1.20 (0.87-1.13) H 08/14/17 10:36 APTT 29.0 Sec. (24.2-36.6) 08/14/17 10:36 POC ABG pH 7.420 (7.35-7.45) 08/13/17 11:34 POC ABG pCO2 61.1 (35-45) H 08/13/17 11:34 POC ABG pO2 57 (80-105) L 08/13/17 11:34 POC ABG HCO3 39.7 08/13/17 11:34 POC ABG Total CO2 41 08/13/17 11:34 POC ABG O2 Sat 89 08/13/17 11:34 POC ABG Base Excess 15 08/13/17 11:34 VBG pH 7.463 (7.320-7.420) H 08/07/17 16:58 FiO2 100 % 08/13/17 11:34 Sodium 139 mmol/L (137-145) 08/12/17 04:31 Potassium 4.1 mmol/L (3.6-5.0) 08/12/17 04:31 Chloride 95.8 mmol/L (98-107) L 08/12/17 04:31 Carbon Dioxide 33 mmol/L (22-30) H 08/12/17 04:31 Anion Gap 14 mmol/L 08/12/17 04:31 BUN 12 mg/dL (9-20) 08/12/17 04:31 Creatinine 0.9 mg/dL (0.8-1.5) 08/12/17 04:31 Estimated GFR > 60 ml/min 08/12/17 04:31 BUN/Creatinine Ratio 13 % 08/12/17 04:31 Glucose 98 mg/dL (75-100) 08/12/17 04:31 Lactic Acid 0.90 mmol/L (0.7-2.0) 08/08/17 06:01 Calcium 8.7 mg/dL (8.4-10.2) 08/12/17 04:31 Magnesium 2.30 mg/dL (1.7-2.3) 08/12/17 04:31 Total Bilirubin 0.60 mg/dL (0.1-1.2) 08/12/17 04:31 Direct Bilirubin 0.2 mg/dL (0-0.2) 08/11/17 07:12 Indirect Bilirubin 0.3 mg/dL 08/11/17 07:12 AST 14 units/L (5-40) 08/12/17 04:31 ALT 14 units/L (7-56) 08/12/17 04:31 Alkaline Phosphatase 80 units/L (35-129) 08/12/17 04:31 NT-Pro-B Natriuret Pep 6070 pg/mL (0-450) H 08/14/17 10:36 Total Protein 5.8 g/dL (6.3-8.2) L 08/12/17 04:31 Albumin 3.0 g/dL (3.9-5) L 08/12/17 04:31 Albumin/Globulin Ratio 1.1 % 08/12/17 04:31 TSH 4.780 mlU/mL (0.270-4.200) H 08/11/17 07:12 Free T4 0.86 ng/dL (0.76-1.46) 08/11/17 07:12
--- NOTE | 2017-08-14 16:56 | Progress Note ---
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, add steroids, add iv lasix, will rx empirically for PE as cannot due PE study due to his weight, heparin drip -tranfer to ICU for next 24 hours -, will need neb, NIV and HHS at home --obstructive sleep apnea/obesity hypoventilation syndrome; , BiPAP at night Oxygen, duo nebs, pulmonary following, out patient sleep study --Severe pulmonary hypertension on echocardiogram; diuretics, fluid restriction , --Left lower lobe pneumonia/atelectasis/community-acquired; continue Levaquin , cultures negative to date , supportive care --Sepsis; continue empiric antibiotics, follow cultures, IV fluids --Lactic acidosis; continue IV fluids, IV antibiotics, follow levels --Leukocytosis secondary to sepsis; trending down --acute systolic Congestive heart failure; echocardiogram findings reviewed ejection fraction 40- 45%, severe pulmonary hypertension, cardiology consult appreciated, no further cardiology invasive workup can be offered due to his weight, he exceeds weight for invasive testing -medical management --Chronic massive lymphedema; supportive care, wound care and lymphedema care as needed Lower extremity and left upper extremity venous Doppler negative for DVT --Morbid obesity; BMI of 82; counseling done, patient may benefit from bariatric surgical consultation or weight reduction program when medically stable --Physical therapy occupational therapy as tolerated --Discharge planning. Case management, possible home with home health when patient is stable Plan of care reviewed with the patient and his nurse, family members, sister at the bedside and answered all their questions Will need referal to weight loss program when clinically improved Disposition; possible discharge home with home health, home oxygen, outpatient sleep studies when medically stable The high probability of a clinically significant, sudden or life threatening deterioration of the [cv, pulmonary] system(s) required my full and direct attention, intervention and personal management. The aggregate critical care time was [44] minutes. This time is in addition to time spent performing reported procedures but includes the following: [] Data Review and interpretation [] Patient assessment and monitoring of vital signs [] Documentation [] Medication orders and management History Interval history: Patient denies sob despite hypoxia and wants to go home RT reports worsening hypoxia Review of systems Constitutional: No fevers, no malaise, no joint pains CVS: No chest pain, no orthopnea, no dyspnea on exertion, no pedal edema GI: No abdominal pain, no diarrhea, no vomiting, no constipation Respiratory: No shortness of breath, no wheezing, no coughing Hospitalist Physical - Physical exam Narrative exam: General.: Appears well, no distress, nontoxic, morbidly obese HEENT: Moist mucous membranes, extraocular muscles intact, no lymphadenopathy Neck: supple Cardiac: S1-S2 heard Lungs: decreased air entry, wheezing, Abdomen: soft , nontender, nondistended, bowel sounds positive Extremities: pitting edema in all four extremities Skin: no rash or lesions Neurologic: no gross focal deficits Psych: appropriate behavior, appropriate mood, corporative, judgment intact - Constitutional Vitals: Temp Pulse Resp BP Pulse Ox 97.8 F 111 H 24 102/47 79 L 08/14/17 08:29 08/14/17 09:59 08/14/17 09:59 08/14/17 08:29 08/14/17 09:47 General appearance: Present: mild distress, obese (morbidly obese) Results - Labs CBC & Chem 7: 08/14/17 10:36 08/12/17 04:31 Labs: Laboratory Last Values WBC 8.5 K/mm3 (4.5-11.0) 08/12/17 04:31 RBC 4.65 M/mm3 (3.65-5.03) 08/12/17 04:31 Hgb 10.7 gm/dl (11.8-15.2) L 08/14/17 10:36 Hct 36.7 % (35.5-45.6) 08/14/17 10:36 MCV 76 fl (84-94) L 08/12/17 04:31 MCH 23 pg (28-32) L 08/12/17 04:31 MCHC 30 % (32-34) L 08/12/17 04:31 RDW 21.3 % (13.2-15.2) H 08/12/17 04:31 Plt Count 278 K/mm3 (140-440) 08/14/17 10:36 Lymph % (Auto) 18.2 % (13.4-35.0) 08/12/17 04:31 [place] % (Auto) 7.0 % (0.0-7.3) 08/12/17 04:31 Eos % (Auto) 4.0 % (0.0-4.3) 08/12/17 04:31 Baso % (Auto) 0.8 % (0.0-1.8) 08/12/17 04:31 Lymph # 1.5 K/mm3 (1.2-5.4) 08/12/17 04:31 [place] # 0.6 K/mm3 (0.0-0.8) 08/12/17 04:31 Eos # 0.3 K/mm3 (0.0-0.4) 08/12/17 04:31 Baso # 0.1 K/mm3 (0.0-0.1) 08/12/17 04:31 Add Manual Diff Complete 08/09/17 10:57 Total Counted 100 08/09/17 10:57 Seg Neutrophils % 70.0 % (40.0-70.0) 08/12/17 04:31 Seg Neuts % (Manual) 64.0 % (40.0-70.0) 08/09/17 10:57 Band Neutrophils % 4.0 % 08/09/17 10:57 Lymphocytes % (Manual) 15.0 % (13.4-35.0) 08/09/17 10:57 Reactive Lymphs % (Man) 3.0 % 08/09/17 10:57 Monocytes % (Manual) 9.0 % (0.0-7.3) H 08/09/17 10:57 Eosinophils % (Manual) 5.0 % (0.0-4.3) H 08/09/17 10:57 Basophils % (Manual) 0 % (0.0-1.8) 08/09/17 10:57 Metamyelocytes % 0 % 08/09/17 10:57 Myelocytes % 0 % 08/09/17 10:57 Promyelocytes % 0 % 08/09/17 10:57 Blast Cells % 0 % 08/09/17 10:57 Nucleated RBC % Not Reportable 08/09/17 10:57 Seg Neutrophils # 5.9 K/mm3 (1.8-7.7) 08/12/17 04:31 Seg Neutrophils # Man 9.3 K/mm3 (1.8-7.7) H 08/09/17 10:57 Band Neutrophils # 0.6 K/mm3 08/09/17 10:57 Lymphocytes # (Manual) 2.2 K/mm3 (1.2-5.4) 08/09/17 10:57 Abs React Lymphs (Man) 0.4 K/mm3 08/09/17 10:57 Monocytes # (Manual) 1.3 K/mm3 (0.0-0.8) H 08/09/17 10:57 Eosinophils # (Manual) 0.7 K/mm3 (0.0-0.4) H 08/09/17 10:57 Basophils # (Manual) 0.0 K/mm3 (0.0-0.1) 08/09/17 10:57 Metamyelocytes # 0.0 K/mm3 08/09/17 10:57 Myelocytes # 0.0 K/mm3 08/09/17 10:57 Promyelocytes # 0.0 K/mm3 08/09/17 10:57 Blast Cells # 0.0 K/mm3 08/09/17 10:57 WBC Morphology Not Reportable 08/09/17 10:57 Hypersegmented Neuts Not Reportable 08/09/17 10:57 Hyposegmented Neuts Not Reportable 08/09/17 10:57 Hypogranular Neuts Not Reportable 08/09/17 10:57 Smudge Cells Not Reportable 08/09/17 10:57 Toxic Granulation Not Reportable 08/09/17 10:57 Toxic Vacuolation Not Reportable 08/09/17 10:57 Dohle Bodies Not Reportable 08/09/17 10:57 Pelger-Huet Anomaly Not Reportable 08/09/17 10:57 Noa Rods Not Reportable 08/09/17 10:57 Platelet Estimate Consistent w auto 08/09/17 10:57 Clumped Platelets Not Reportable 08/09/17 10:57 Plt Clumps, EDTA Not Reportable 08/09/17 10:57 Large Platelets Not Reportable 08/09/17 10:57 Giant Platelets Few 08/09/17 10:57 Platelet Satelliting Not Reportable 08/09/17 10:57 Plt Morphology Comment Not Reportable 08/09/17 10:57 RBC Morphology Not Reportable 08/09/17 10:57 Dimorphic RBCs Not Reportable 08/09/17 10:57 Polychromasia Not Reportable 08/09/17 10:57 Hypochromasia 1+ 08/09/17 10:57 Poikilocytosis 1+ 08/09/17 10:57 Anisocytosis 1+ 08/09/17 10:57 Microcytosis 1+ 08/09/17 10:57 Macrocytosis Not Reportable 08/09/17 10:57 Spherocytes Not Reportable 08/09/17 10:57 Pappenheimer Bodies Not Reportable 08/09/17 10:57 Sickle Cells Not Reportable 08/09/17 10:57 Target Cells Not Reportable 08/09/17 10:57 Tear Drop Cells Not Reportable 08/09/17 10:57 Ovalocytes Few 08/09/17 10:57 Stomatocytes 1+ 08/09/17 10:57 Helmet Cells Not Reportable 08/09/17 10:57 [place] Bodies Not Reportable 08/09/17 10:57 [place] Rings Not Reportable 08/09/17 10:57 [place] Cells Not Reportable 08/09/17 10:57 Bite Cells Not Reportable 08/09/17 10:57 Crenated Cell Not Reportable 08/09/17 10:57 Elliptocytes Not Reportable 08/09/17 10:57 Acanthocytes (Spur) Not Reportable 08/09/17 10:57 Rouleaux Not Reportable 08/09/17 10:57 Hemoglobin C Crystals Not Reportable 08/09/17 10:57 Schistocytes Not Reportable 08/09/17 10:57 Malaria parasites Not Reportable 08/09/17 10:57 Cuco Bodies Not Reportable 08/09/17 10:57 Hem Pathologist Commnt No 08/09/17 10:57 PT 15.8 Sec. (12.2-14.9) H 08/14/17 10:36 INR 1.20 (0.87-1.13) H 08/14/17 10:36 APTT 29.0 Sec. (24.2-36.6) 08/14/17 10:36 POC ABG pH 7.420 (7.35-7.45) 08/13/17 11:34 POC ABG pCO2 61.1 (35-45) H 08/13/17 11:34 POC ABG pO2 57 (80-105) L 08/13/17 11:34 POC ABG HCO3 39.7 08/13/17 11:34 POC ABG Total CO2 41 08/13/17 11:34 POC ABG O2 Sat 89 08/13/17 11:34 POC ABG Base Excess 15 08/13/17 11:34 VBG pH 7.463 (7.320-7.420) H 08/07/17 16:58 FiO2 100 % 08/13/17 11:34 Sodium 139 mmol/L (137-145) 08/12/17 04:31 Potassium 4.1 mmol/L (3.6-5.0) 08/12/17 04:31 Chloride 95.8 mmol/L (98-107) L 08/12/17 04:31 Carbon Dioxide 33 mmol/L (22-30) H 08/12/17 04:31 Anion Gap 14 mmol/L 08/12/17 04:31 BUN 12 mg/dL (9-20) 08/12/17 04:31 Creatinine 0.9 mg/dL (0.8-1.5) 08/12/17 04:31 Estimated GFR > 60 ml/min 08/12/17 04:31 BUN/Creatinine Ratio 13 % 08/12/17 04:31 Glucose 98 mg/dL (75-100) 08/12/17 04:31 Lactic Acid 0.90 mmol/L (0.7-2.0) 08/08/17 06:01 Calcium 8.7 mg/dL (8.4-10.2) 08/12/17 04:31 Magnesium 2.30 mg/dL (1.7-2.3) 08/12/17 04:31 Total Bilirubin 0.60 mg/dL (0.1-1.2) 08/12/17 04:31 Direct Bilirubin 0.2 mg/dL (0-0.2) 08/11/17 07:12 Indirect Bilirubin 0.3 mg/dL 08/11/17 07:12 AST 14 units/L (5-40) 08/12/17 04:31 ALT 14 units/L (7-56) 08/12/17 04:31 Alkaline Phosphatase 80 units/L (35-129) 08/12/17 04:31 NT-Pro-B Natriuret Pep 6070 pg/mL (0-450) H 08/14/17 10:36 Total Protein 5.8 g/dL (6.3-8.2) L 08/12/17 04:31 Albumin 3.0 g/dL (3.9-5) L 08/12/17 04:31 Albumin/Globulin Ratio 1.1 % 08/12/17 04:31 TSH 4.780 mlU/mL (0.270-4.200) H 08/11/17 07:12 Free T4 0.86 ng/dL (0.76-1.46) 08/11/17 07:12
[2017-08-14] MEDS: COUMADIN PO SCH (16:57)
[2017-08-14] MEDS: HEPARIN/ 0.45% NACL-25,000 UNIT/500 ML 25,000 UNIT/500 ML BAG IV SCH (17:12)
[2017-08-14] MEDS: LASIX IV SCH (17:45)
[2017-08-14] MEDS: DUONEB *Not for PRN Use IH SCH ×2 (21:06→23:33)
[2017-08-14] MEDS: MOTRIN PO PRN (23:49)
[2017-08-15] MEDS: HEPARIN/ 0.45% NACL-25,000 UNIT/500 ML 25,000 UNIT/500 ML BAG IV SCH ×2 (02:17→23:57)
[2017-08-15] MEDS: LASIX IV SCH ×4 (02:21→23:59)
[2017-08-15] MEDS: DUONEB *Not for PRN Use IH SCH ×5 (03:43→20:14)
[2017-08-15 04:50] LABS: INR 1.24 (0.87-1.13)
[2017-08-15] MEDS: CLEOCIN 600 MG/50 mL 600 MG/50 ML BAG IV SCH (05:13)
--- NOTE | 2017-08-15 11:27 | Progress Note ---
Subjective Principal diagnosis: heart failure, hypercapnic respiratory failure, severe morbid obesity Interval history: on bipap. tolerated it overnight. Objective Vital Signs - 12hr 08/14/17 08/14/17 08/14/17 23:30 23:33 23:40 Temperature Pulse Rate 89 88 88 Pulse Rate [ 89 Posterior Bilateral Throughout] Respiratory 27 H 25 H 26 H Rate Respiratory 26 H Rate [Posterior Bilateral Throughout] Blood Pressure 118/63 118/63 118/63 O2 Sat by Pulse 92 92 90 Oximetry 08/14/17 08/14/17 08/14/17 23:45 23:49 23:50 Temperature Pulse Rate 89 Pulse Rate [ 90 Posterior Bilateral Throughout] Respiratory 26 H 24 Rate Respiratory 24 Rate [Posterior Bilateral Throughout] Blood Pressure 106/63 O2 Sat by Pulse 90 Oximetry 08/15/17 08/15/17 08/15/17 00:00 00:10 00:20 Temperature Pulse Rate 91 H 90 89 Pulse Rate [ Posterior Bilateral Throughout] Respiratory 22 24 24 Rate Respiratory Rate [Posterior Bilateral Throughout] Blood Pressure 122/67 118/63 115/68 O2 Sat by Pulse 93 94 95 Oximetry 08/15/17 08/15/17 08/15/17 00:30 00:40 00:49 Temperature Pulse Rate 89 89 Pulse Rate [ Posterior Bilateral Throughout] Respiratory 22 22 22 Rate Respiratory Rate [Posterior Bilateral Throughout] Blood Pressure 118/66 118/66 O2 Sat by Pulse 95 95 Oximetry 08/15/17 08/15/17 08/15/17 00:50 01:00 01:10 Temperature Pulse Rate 86 87 86 Pulse Rate [ Posterior Bilateral Throughout] Respiratory 21 23 22 Rate Respiratory Rate [Posterior Bilateral Throughout] Blood Pressure 115/68 120/64 120/64 O2 Sat by Pulse 95 95 95 Oximetry 08/15/17 08/15/17 08/15/17 01:20 01:30 01:40 Temperature Pulse Rate 85 84 88 Pulse Rate [ Posterior Bilateral Throughout] Respiratory 23 12 15 Rate Respiratory Rate [Posterior Bilateral Throughout] Blood Pressure 119/68 122/65 122/65 O2 Sat by Pulse 95 93 94 Oximetry 08/15/17 08/15/17 08/15/17 01:50 02:00 02:10 Temperature Pulse Rate 88 86 85 Pulse Rate [ Posterior Bilateral Throughout] Respiratory 22 22 22 Rate Respiratory Rate [Posterior Bilateral Throughout] Blood Pressure 119/61 118/64 118/64 O2 Sat by Pulse 96 96 96 Oximetry 08/15/17 08/15/17 08/15/17 02:20 02:30 02:40 Temperature Pulse Rate 86 84 84 Pulse Rate [ Posterior Bilateral Throughout] Respiratory 17 22 21 Rate Respiratory Rate [Posterior Bilateral Throughout] Blood Pressure 110/51 106/52 106/52 O2 Sat by Pulse 95 96 96 Oximetry 08/15/17 08/15/17 08/15/17 02:50 03:00 03:10 Temperature Pulse Rate 83 82 82 Pulse Rate [ Posterior Bilateral Throughout] Respiratory 22 22 20 Rate Respiratory Rate [Posterior Bilateral Throughout] Blood Pressure 106/56 105/56 105/56 O2 Sat by Pulse 96 96 96 Oximetry 08/15/17 08/15/17 08/15/17 03:20 03:30 03:40 Temperature Pulse Rate 82 81 81 Pulse Rate [ Posterior Bilateral Throughout] Respiratory 21 21 20 Rate Respiratory Rate [Posterior Bilateral Throughout] Blood Pressure 106/54 106/55 106/55 O2 Sat by Pulse 96 96 96 Oximetry 08/15/17 08/15/17 08/15/17 03:43 03:50 04:46 Temperature Pulse Rate 84 Pulse Rate [ 80 Posterior Bilateral Throughout] Respiratory 12 22 Rate Respiratory 19 Rate [Posterior Bilateral Throughout] Blood Pressure 115/61 O2 Sat by Pulse 99 84 Oximetry 08/15/17 08/15/17 08/15/17 06:47 08:00 10:51 Temperature 97.4 F L Pulse Rate Pulse Rate [ Posterior Bilateral Throughout] Respiratory 22 Rate Respiratory Rate [Posterior Bilateral Throughout] Blood Pressure O2 Sat by Pulse 84 91 Oximetry 08/15/17 10:52 Temperature Pulse Rate 88 Pulse Rate [ Posterior Bilateral Throughout] Respiratory 16 Rate Respiratory Rate [Posterior Bilateral Throughout] Blood Pressure 118/60 O2 Sat by Pulse 90 Oximetry Constitutional: no acute distress, alert, other (supermorbidly obese) Eyes: non-icteric ENT: oropharynx moist, other (Mallampati 4) Neck: other (extremely large in circumference) Effort: normal Ascultation: Right: rhonchi ( ), Bilateral: diminished breath sounds, wheezes ( mild) Percussion: Bilateral: not dull Cardiovascular: regular rate and rhythm Gastrointestinal: normoactive bowel sounds, soft, non-tender, non-distended, other (obese) Extremities: edema, other (bilateral lymphedema with chronic changes) Neurologic: normal mental status, non-focal exam Psychiatric: mood appropriate CBC and BMP: 08/14/17 10:36 08/12/17 04:31 ABG, PT/INR, D-dimer: ABG POC ABG pH 7.471 (7.35-7.45) H 08/15/17 04:20 POC ABG pCO2 53.8 (35-45) H 08/15/17 04:20 POC ABG pO2 81 (80-105) 08/15/17 04:20 POC ABG HCO3 39.3 08/15/17 04:20 POC ABG Total CO2 41 08/15/17 04:20 POC ABG O2 Sat 96 08/15/17 04:20 PT/INR, D-dimer PT 16.3 Sec. (12.2-14.9) H 08/15/17 04:15 INR 1.24 (0.87-1.13) H 08/15/17 04:15 Abnormal lab findings: Abnormal Labs 08/07/17 08/07/17 08/07/17 16:58 16:58 16:58 WBC 16.1 H RBC 5.44 H Hgb Hct MCV 74 L MCH 22 L MCHC 29 L RDW 21.7 H [place] % (Auto) Seg Neutrophils % Seg Neuts % (Manual) 87.0 H Lymphocytes % (Manual) 7.0 L Monocytes % (Manual) Eosinophils % (Manual) Basophils % (Manual) 2.0 H Seg Neutrophils # Man 14.0 H Lymphocytes # (Manual) 1.1 L Monocytes # (Manual) Eosinophils # (Manual) Basophils # (Manual) 0.3 H PT 16.2 H INR 1.23 H Heparin Anti-Xa Level POC ABG pH POC ABG pCO2 POC ABG pO2 VBG pH Chloride 96.2 L Carbon Dioxide 31 H Glucose Lactic Acid Calcium NT-Pro-B Natriuret Pep Total Protein 5.8 L Albumin 3.0 L TSH 08/07/17 08/07/17 08/07/17 16:58 16:58 16:58 WBC RBC Hgb Hct MCV MCH MCHC RDW [place] % (Auto) Seg Neutrophils % Seg Neuts % (Manual) Lymphocytes % (Manual) Monocytes % (Manual) Eosinophils % (Manual) Basophils % (Manual) Seg Neutrophils # Man Lymphocytes # (Manual) Monocytes # (Manual) Eosinophils # (Manual) Basophils # (Manual) PT INR Heparin Anti-Xa Level POC ABG pH POC ABG pCO2 POC ABG pO2 VBG pH 7.463 H Chloride Carbon Dioxide Glucose Lactic Acid 2.10 H* Calcium NT-Pro-B Natriuret Pep 2205 H Total Protein Albumin TSH 08/09/17 08/09/17 08/10/17 10:57 13:37 08:04 WBC 14.5 H RBC Hgb 10.8 L 10.8 L Hct 35.1 L MCV 74 L 76 L MCH 23 L 23 L MCHC 31 L 30 L RDW 21.2 H 21.0 H [place] % (Auto) Seg Neutrophils % 75.4 H Seg Neuts % (Manual) Lymphocytes % (Manual) Monocytes % (Manual) 9.0 H Eosinophils % (Manual) 5.0 H Basophils % (Manual) Seg Neutrophils # Man 9.3 H Lymphocytes # (Manual) Monocytes # (Manual) 1.3 H Eosinophils # (Manual) 0.7 H Basophils # (Manual) PT INR Heparin Anti-Xa Level POC ABG pH POC ABG pCO2 POC ABG pO2 VBG pH Chloride 96.9 L Carbon Dioxide 32 H Glucose Lactic Acid Calcium 8.3 L NT-Pro-B Natriuret Pep Total Protein Albumin TSH 08/10/17 08/10/17 08/10/17 08:04 08:04 14:50 WBC RBC Hgb Hct MCV MCH MCHC RDW [place] % (Auto) Seg Neutrophils % Seg Neuts % (Manual) Lymphocytes % (Manual) Monocytes % (Manual) Eosinophils % (Manual) Basophils % (Manual) Seg Neutrophils # Man Lymphocytes # (Manual) Monocytes # (Manual) Eosinophils # (Manual) Basophils # (Manual) PT INR Heparin Anti-Xa Level POC ABG pH POC ABG pCO2 65.9 H POC ABG pO2 VBG pH Chloride Carbon Dioxide 32 H Glucose 115 H Lactic Acid Calcium NT-Pro-B Natriuret Pep Total Protein Albumin TSH 4.900 H 08/11/17 08/11/17 08/11/17 07:12 07:12 07:12 WBC RBC Hgb 10.3 L Hct MCV 76 L MCH 22 L MCHC 29 L RDW 21.4 H [place] % (Auto) 8.8 H Seg Neutrophils % Seg Neuts % (Manual) Lymphocytes % (Manual) Monocytes % (Manual) Eosinophils % (Manual) Basophils % (Manual) Seg Neutrophils # Man Lymphocytes # (Manual) Monocytes # (Manual) Eosinophils # (Manual) Basophils # (Manual) PT INR Heparin Anti-Xa Level POC ABG pH POC ABG pCO2 POC ABG pO2 VBG pH Chloride Carbon Dioxide 35 H Glucose 105 H Lactic Acid Calcium NT-Pro-B Natriuret Pep Total Protein 5.8 L Albumin 3.1 L TSH 4.780 H 08/12/17 08/12/17 08/13/17 04:31 04:31 11:34 WBC RBC Hgb 10.7 L Hct 35.3 L MCV 76 L MCH 23 L MCHC 30 L RDW 21.3 H [place] % (Auto) Seg Neutrophils % Seg Neuts % (Manual) Lymphocytes % (Manual) Monocytes % (Manual) Eosinophils % (Manual) Basophils % (Manual) Seg Neutrophils # Man Lymphocytes # (Manual) Monocytes # (Manual) Eosinophils # (Manual) Basophils # (Manual) PT INR Heparin Anti-Xa Level POC ABG pH POC ABG pCO2 61.1 H POC ABG pO2 57 L VBG pH Chloride 95.8 L Carbon Dioxide 33 H Glucose Lactic Acid Calcium NT-Pro-B Natriuret Pep Total Protein 5.8 L Albumin 3.0 L TSH 08/14/17 08/14/17 08/14/17 10:36 10:36 10:36 WBC RBC Hgb 10.7 L Hct MCV MCH MCHC RDW [place] % (Auto) Seg Neutrophils % Seg Neuts % (Manual) Lymphocytes % (Manual) Monocytes % (Manual) Eosinophils % (Manual) Basophils % (Manual) Seg Neutrophils # Man Lymphocytes # (Manual) Monocytes # (Manual) Eosinophils # (Manual) Basophils # (Manual) PT 15.8 H INR 1.20 H Heparin Anti-Xa Level POC ABG pH POC ABG pCO2 POC ABG pO2 VBG pH Chloride Carbon Dioxide Glucose Lactic Acid Calcium NT-Pro-B Natriuret Pep 6070 H Total Protein Albumin TSH 08/14/17 08/14/17 08/14/17 17:23 20:37 23:18 WBC RBC Hgb Hct MCV MCH MCHC RDW [place] % (Auto) Seg Neutrophils % Seg Neuts % (Manual) Lymphocytes % (Manual) Monocytes % (Manual) Eosinophils % (Manual) Basophils % (Manual) Seg Neutrophils # Man Lymphocytes # (Manual) Monocytes # (Manual) Eosinophils # (Manual) Basophils # (Manual) PT INR Heparin Anti-Xa Level < 0.10 L POC ABG pH 7.566 H 7.494 H POC ABG pCO2 51.6 H POC ABG pO2 45 L 52 L VBG pH Chloride Carbon Dioxide Glucose Lactic Acid Calcium NT-Pro-B Natriuret Pep Total Protein Albumin TSH 08/15/17 08/15/17 08/15/17 04:15 04:20 08:26 WBC RBC Hgb Hct MCV MCH MCHC RDW [place] % (Auto) Seg Neutrophils % Seg Neuts % (Manual) Lymphocytes % (Manual) Monocytes % (Manual) Eosinophils % (Manual) Basophils % (Manual) Seg Neutrophils # Man Lymphocytes # (Manual) Monocytes # (Manual) Eosinophils # (Manual) Basophils # (Manual) PT 16.3 H INR 1.24 H Heparin Anti-Xa Level 0.12 L POC ABG pH 7.471 H POC ABG pCO2 53.8 H POC ABG pO2 VBG pH Chloride Carbon Dioxide Glucose Lactic Acid Calcium NT-Pro-B Natriuret Pep Total Protein Albumin TSH
[2017-08-15] MEDS: LEVAQUIN PO SCH (12:02)
[2017-08-15] MEDS: COUMADIN PO SCH (18:13)
[2017-08-15] MEDS: MOTRIN PO PRN (21:19)
--- NOTE | 2017-08-15 21:41 | Progress Note ---
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, add steroids, add iv lasix, will rx empirically for PE as cannot due PE study due to his weight, heparin drip and coumadin -, will need neb, NIV and HHS at home --acute systolic Congestive heart failure; echocardiogram findings reviewed ejection fraction 40- 45%, severe pulmonary hypertension, cardiology consult appreciated, no further cardiology invasive workup can be offered due to his weight, he exceeds weight for invasive testing -medical management --obstructive sleep apnea/obesity hypoventilation syndrome; , BiPAP at night Oxygen, duo nebs, pulmonary following, out patient sleep study --Severe pulmonary hypertension on echocardiogram; diuretics, fluid restriction , --Left lower lobe pneumonia/atelectasis/community-acquired; continue Levaquin , cultures negative to date , supportive care --Sepsis; continue empiric antibiotics, follow cultures, IV fluids --Lactic acidosis; continue IV fluids, IV antibiotics, follow levels --Leukocytosis secondary to sepsis; trending down --Chronic massive lymphedema; supportive care, wound care and lymphedema care as needed Lower extremity and left upper extremity venous Doppler negative for DVT --Morbid obesity; BMI of 82; counseling done, patient may benefit from bariatric surgical consultation or weight reduction program when medically stable --Physical therapy occupational therapy as tolerated --Discharge planning. Case management, possible home with home health when patient is stable Plan of care reviewed with the patient and his nurse, family members, sister at the bedside and answered all their questions Will need referal to weight loss program when clinically improved Disposition; possible discharge home with home health, home oxygen, outpatient sleep studies when medically stable The high probability of a clinically significant, sudden or life threatening deterioration of the [cv, pulmonary] system(s) required my full and direct attention, intervention and personal management. The aggregate critical care time was [44] minutes. This time is in addition to time spent performing reported procedures but includes the following: [] Data Review and interpretation [] Patient assessment and monitoring of vital signs [] Documentation [] Medication orders and management History Interval history: Patient denies sob despite hypoxia and wants to go home RT reports worsening hypoxia Review of systems Constitutional: No fevers, no malaise, no joint pains CVS: No chest pain, no orthopnea, no dyspnea on exertion, no pedal edema GI: No abdominal pain, no diarrhea, no vomiting, no constipation Respiratory: No shortness of breath, no wheezing, no coughing Hospitalist Physical - Physical exam Narrative exam: General.: Appears well, no distress, nontoxic, morbidly obese HEENT: Moist mucous membranes, extraocular muscles intact, no lymphadenopathy Neck: supple Cardiac: S1-S2 heard Lungs: decreased air entry, wheezing, Abdomen: soft , nontender, nondistended, bowel sounds positive Extremities: pitting edema in all four extremities Skin: no rash or lesions Neurologic: no gross focal deficits Psych: appropriate behavior, appropriate mood, corporative, judgment intact - Constitutional Vitals: Temp Pulse Resp BP Pulse Ox 97.8 F 81 20 117/56 92 08/15/17 20:00 08/15/17 20:33 08/15/17 21:19 08/15/17 20:19 08/15/17 20:19 General appearance: Present: mild distress, obese (morbidly obese) Results - Labs CBC & Chem 7: 08/16/17 14:04 08/16/17 14:04 Labs: Laboratory Last Values WBC 8.5 K/mm3 (4.5-11.0) 08/12/17 04:31 RBC 4.65 M/mm3 (3.65-5.03) 08/12/17 04:31 Hgb 10.7 gm/dl (11.8-15.2) L 08/14/17 10:36 Hct 36.7 % (35.5-45.6) 08/14/17 10:36 MCV 76 fl (84-94) L 08/12/17 04:31 MCH 23 pg (28-32) L 08/12/17 04:31 MCHC 30 % (32-34) L 08/12/17 04:31 RDW 21.3 % (13.2-15.2) H 08/12/17 04:31 Plt Count 278 K/mm3 (140-440) 08/14/17 10:36 Lymph % (Auto) 18.2 % (13.4-35.0) 08/12/17 04:31 [place] % (Auto) 7.0 % (0.0-7.3) 08/12/17 04:31 Eos % (Auto) 4.0 % (0.0-4.3) 08/12/17 04:31 Baso % (Auto) 0.8 % (0.0-1.8) 08/12/17 04:31 Lymph # 1.5 K/mm3 (1.2-5.4) 08/12/17 04:31 [place] # 0.6 K/mm3 (0.0-0.8) 08/12/17 04:31 Eos # 0.3 K/mm3 (0.0-0.4) 08/12/17 04:31 Baso # 0.1 K/mm3 (0.0-0.1) 08/12/17 04:31 Add Manual Diff Complete 08/09/17 10:57 Total Counted 100 08/09/17 10:57 Seg Neutrophils % 70.0 % (40.0-70.0) 08/12/17 04:31 Seg Neuts % (Manual) 64.0 % (40.0-70.0) 08/09/17 10:57 Band Neutrophils % 4.0 % 08/09/17 10:57 Lymphocytes % (Manual) 15.0 % (13.4-35.0) 08/09/17 10:57 Reactive Lymphs % (Man) 3.0 % 08/09/17 10:57 Monocytes % (Manual) 9.0 % (0.0-7.3) H 08/09/17 10:57 Eosinophils % (Manual) 5.0 % (0.0-4.3) H 08/09/17 10:57 Basophils % (Manual) 0 % (0.0-1.8) 08/09/17 10:57 Metamyelocytes % 0 % 08/09/17 10:57 Myelocytes % 0 % 08/09/17 10:57 Promyelocytes % 0 % 08/09/17 10:57 Blast Cells % 0 % 08/09/17 10:57 Nucleated RBC % Not Reportable 08/09/17 10:57 Seg Neutrophils # 5.9 K/mm3 (1.8-7.7) 08/12/17 04:31 Seg Neutrophils # Man 9.3 K/mm3 (1.8-7.7) H 08/09/17 10:57 Band Neutrophils # 0.6 K/mm3 08/09/17 10:57 Lymphocytes # (Manual) 2.2 K/mm3 (1.2-5.4) 08/09/17 10:57 Abs React Lymphs (Man) 0.4 K/mm3 08/09/17 10:57 Monocytes # (Manual) 1.3 K/mm3 (0.0-0.8) H 08/09/17 10:57 Eosinophils # (Manual) 0.7 K/mm3 (0.0-0.4) H 08/09/17 10:57 Basophils # (Manual) 0.0 K/mm3 (0.0-0.1) 08/09/17 10:57 Metamyelocytes # 0.0 K/mm3 08/09/17 10:57 Myelocytes # 0.0 K/mm3 08/09/17 10:57 Promyelocytes # 0.0 K/mm3 08/09/17 10:57 Blast Cells # 0.0 K/mm3 08/09/17 10:57 WBC Morphology Not Reportable 08/09/17 10:57 Hypersegmented Neuts Not Reportable 08/09/17 10:57 Hyposegmented Neuts Not Reportable 08/09/17 10:57 Hypogranular Neuts Not Reportable 08/09/17 10:57 Smudge Cells Not Reportable 08/09/17 10:57 Toxic Granulation Not Reportable 08/09/17 10:57 Toxic Vacuolation Not Reportable 08/09/17 10:57 Dohle Bodies Not Reportable 08/09/17 10:57 Pelger-Huet Anomaly Not Reportable 08/09/17 10:57 Noa Rods Not Reportable 08/09/17 10:57 Platelet Estimate Consistent w auto 08/09/17 10:57 Clumped Platelets Not Reportable 08/09/17 10:57 Plt Clumps, EDTA Not Reportable 08/09/17 10:57 Large Platelets Not Reportable 08/09/17 10:57 Giant Platelets Few 08/09/17 10:57 Platelet Satelliting Not Reportable 08/09/17 10:57 Plt Morphology Comment Not Reportable 08/09/17 10:57 RBC Morphology Not Reportable 08/09/17 10:57 Dimorphic RBCs Not Reportable 08/09/17 10:57 Polychromasia Not Reportable 08/09/17 10:57 Hypochromasia 1+ 08/09/17 10:57 Poikilocytosis 1+ 08/09/17 10:57 Anisocytosis 1+ 08/09/17 10:57 Microcytosis 1+ 08/09/17 10:57 Macrocytosis Not Reportable 08/09/17 10:57 Spherocytes Not Reportable 08/09/17 10:57 Pappenheimer Bodies Not Reportable 08/09/17 10:57 Sickle Cells Not Reportable 08/09/17 10:57 Target Cells Not Reportable 08/09/17 10:57 Tear Drop Cells Not Reportable 08/09/17 10:57 Ovalocytes Few 08/09/17 10:57 Stomatocytes 1+ 08/09/17 10:57 Helmet Cells Not Reportable 08/09/17 10:57 [place] Bodies Not Reportable 08/09/17 10:57 [place] Rings Not Reportable 08/09/17 10:57 [place] Cells Not Reportable 08/09/17 10:57 Bite Cells Not Reportable 08/09/17 10:57 Crenated Cell Not Reportable 08/09/17 10:57 Elliptocytes Not Reportable 08/09/17 10:57 Acanthocytes (Spur) Not Reportable 08/09/17 10:57 Rouleaux Not Reportable 08/09/17 10:57 Hemoglobin C Crystals Not Reportable 08/09/17 10:57 Schistocytes Not Reportable 08/09/17 10:57 Malaria parasites Not Reportable 08/09/17 10:57 Cuco Bodies Not Reportable 08/09/17 10:57 Hem Pathologist Commnt No 08/09/17 10:57 PT 16.3 Sec. (12.2-14.9) H 08/15/17 04:15 INR 1.24 (0.87-1.13) H 08/15/17 04:15 APTT 29.0 Sec. (24.2-36.6) 08/14/17 10:36 Heparin Anti-Xa Level 0.12 U.I./ml (0.3-0.7) L 08/15/17 08:26 POC ABG pH 7.471 (7.35-7.45) H 08/15/17 04:20 POC ABG pCO2 53.8 (35-45) H 08/15/17 04:20 POC ABG pO2 81 (80-105) 08/15/17 04:20 POC ABG HCO3 39.3 08/15/17 04:20 POC ABG Total CO2 41 08/15/17 04:20 POC ABG O2 Sat 96 08/15/17 04:20 POC ABG Base Excess 16 08/15/17 04:20 VBG pH 7.463 (7.320-7.420) H 08/07/17 16:58 FiO2 100 % 08/15/17 04:20 Sodium 139 mmol/L (137-145) 08/12/17 04:31 Potassium 4.1 mmol/L (3.6-5.0) 08/12/17 04:31 Chloride 95.8 mmol/L (98-107) L 08/12/17 04:31 Carbon Dioxide 33 mmol/L (22-30) H 08/12/17 04:31 Anion Gap 14 mmol/L 08/12/17 04:31 BUN 12 mg/dL (9-20) 08/12/17 04:31 Creatinine 0.9 mg/dL (0.8-1.5) 08/12/17 04:31 Estimated GFR > 60 ml/min 08/12/17 04:31 BUN/Creatinine Ratio 13 % 08/12/17 04:31 Glucose 98 mg/dL (75-100) 08/12/17 04:31 Lactic Acid 0.90 mmol/L (0.7-2.0) 08/08/17 06:01 Calcium 8.7 mg/dL (8.4-10.2) 08/12/17 04:31 Magnesium 2.30 mg/dL (1.7-2.3) 08/12/17 04:31 Total Bilirubin 0.60 mg/dL (0.1-1.2) 08/12/17 04:31 Direct Bilirubin 0.2 mg/dL (0-0.2) 08/11/17 07:12 Indirect Bilirubin 0.3 mg/dL 08/11/17 07:12 AST 14 units/L (5-40) 08/12/17 04:31 ALT 14 units/L (7-56) 08/12/17 04:31 Alkaline Phosphatase 80 units/L (35-129) 08/12/17 04:31 NT-Pro-B Natriuret Pep 6070 pg/mL (0-450) H 08/14/17 10:36 Total Protein 5.8 g/dL (6.3-8.2) L 08/12/17 04:31 Albumin 3.0 g/dL (3.9-5) L 08/12/17 04:31 Albumin/Globulin Ratio 1.1 % 08/12/17 04:31 TSH 4.780 mlU/mL (0.270-4.200) H 08/11/17 07:12 Free T4 0.86 ng/dL (0.76-1.46) 08/11/17 07:12
[2017-08-16] MEDS: DUONEB *Not for PRN Use IH SCH ×6 (00:01→21:14)
[2017-08-16 06:12] LABS: INR 1.61 (0.87-1.13)
[2017-08-16 06:13] LABS: Heparin anti-factor XA 0.28 U.I./ml (0.3-0.7)
[2017-08-16 06:40] LABS: Hematocrit 36.6 % (35.5-45.6); Hemoglobin 11.1 gm/dl (11.8-15.2)
--- NOTE | 2017-08-16 09:44 | Progress Note ---
Assessment and Plan Acute/Chronic hypercapniac respiratory failure. Secondary to super morbid obesity.hypoxemia improved now already 5% FiO2. This brought combination with diuretics plus nebs and IV steroids for chest congestion. Also, current BiPAP interface appears to be more effected the small mask Wheezing/Chest congestion. Improved Sepsis, question about pneumonia. Completed antibiotics. No fever Obesity hyperventilation syndrome with acute decompensation. Pulmonary hypertension most likely class 2/3, see echocardiogram. Congestive heart failure with low ejection fraction. Improving on diuretics RUSSEL. Probably active, never evaluated per family Super morbid obesity. Triggering all of the above Recommendations Continue FiO2 tapered down with BiPAP Once on PEEP of 8, FiO2 of 40-50%, goal is to transfer to high flow oxygen Continue nebs and steroids Currently on heparin. If concern is PE, he will need either a chest CTA or ventilation perfusion scan. I will wait for him to be slightly more stable. Continue antibiotics and monitor cultures Discussed with patient at the bedside. All questions answered, they agree with [place] plan as stated Critical care time was 31 minutes of [id number] evaluation coordination of care. Subjective Date of service: 08/16/17 Principal diagnosis: heart failure, hypercapnic respiratory failure, severe morbid obesity Interval history: Feels much better this morning. On BiPAP all night long without respiratory complaints. Minimal cough. No chest pain Objective Vital Signs - 12hr 08/15/17 08/15/17 08/15/17 21:50 22:00 22:11 Temperature Pulse Rate 85 81 Pulse Rate [ Anterior Bilateral Throughout] Pulse Rate [ Posterior Bilateral Throughout] Respiratory 15 15 Rate Respiratory Rate [Anterior Bilateral Throughout] Respiratory 16 Rate [Chest] Respiratory Rate [Posterior Bilateral Throughout] Blood Pressure 110/64 O2 Sat by Pulse 95 96 96 Oximetry 08/15/17 08/15/17 08/15/17 22:19 22:21 22:31 Temperature Pulse Rate 78 81 Pulse Rate [ Anterior Bilateral Throughout] Pulse Rate [ Posterior Bilateral Throughout] Respiratory 21 18 15 Rate Respiratory Rate [Anterior Bilateral Throughout] Respiratory Rate [Chest] Respiratory Rate [Posterior Bilateral Throughout] Blood Pressure 109/49 118/61 O2 Sat by Pulse 96 95 Oximetry 08/15/17 08/15/17 08/15/17 22:41 22:51 23:01 Temperature Pulse Rate 80 78 78 Pulse Rate [ Anterior Bilateral Throughout] Pulse Rate [ Posterior Bilateral Throughout] Respiratory 16 16 18 Rate Respiratory Rate [Anterior Bilateral Throughout] Respiratory Rate [Chest] Respiratory Rate [Posterior Bilateral Throughout] Blood Pressure 118/61 117/59 118/64 O2 Sat by Pulse 95 95 95 Oximetry 08/15/17 08/15/17 08/15/17 23:10 23:21 23:31 Temperature Pulse Rate 78 76 77 Pulse Rate [ Anterior Bilateral Throughout] Pulse Rate [ Posterior Bilateral Throughout] Respiratory 18 17 16 Rate Respiratory Rate [Anterior Bilateral Throughout] Respiratory Rate [Chest] Respiratory Rate [Posterior Bilateral Throughout] Blood Pressure 109/49 120/62 123/56 O2 Sat by Pulse 94 94 96 Oximetry 08/15/17 08/15/17 08/15/17 23:36 23:41 23:42 Temperature Pulse Rate 76 78 Pulse Rate [ Anterior Bilateral Throughout] Pulse Rate [ Posterior Bilateral Throughout] Respiratory 16 17 17 Rate Respiratory Rate [Anterior Bilateral Throughout] Respiratory Rate [Chest] Respiratory Rate [Posterior Bilateral Throughout] Blood Pressure 118/64 123/56 O2 Sat by Pulse 95 95 95 Oximetry 08/15/17 08/16/17 08/16/17 23:51 00:00 00:01 Temperature 97.9 F Pulse Rate 75 75 Pulse Rate [ Anterior Bilateral Throughout] Pulse Rate [ 83 Posterior Bilateral Throughout] Respiratory 16 17 Rate Respiratory Rate [Anterior Bilateral Throughout] Respiratory Rate [Chest] Respiratory 18 Rate [Posterior Bilateral Throughout] Blood Pressure 121/62 124/62 O2 Sat by Pulse 95 94 Oximetry 08/16/17 08/16/17 08/16/17 00:11 00:18 00:21 Temperature Pulse Rate 77 75 Pulse Rate [ Anterior Bilateral Throughout] Pulse Rate [ 78 Posterior Bilateral Throughout] Respiratory 18 16 Rate Respiratory Rate [Anterior Bilateral Throughout] Respiratory Rate [Chest] Respiratory 17 Rate [Posterior Bilateral Throughout] Blood Pressure 124/62 125/60 O2 Sat by Pulse 95 94 Oximetry 08/16/17 08/16/17 08/16/17 00:31 00:41 00:51 Temperature Pulse Rate 76 75 74 Pulse Rate [ Anterior Bilateral Throughout] Pulse Rate [ Posterior Bilateral Throughout] Respiratory 18 18 17 Rate Respiratory Rate [Anterior Bilateral Throughout] Respiratory Rate [Chest] Respiratory Rate [Posterior Bilateral Throughout] Blood Pressure 117/60 117/60 119/59 O2 Sat by Pulse 94 94 95 Oximetry 08/16/17 08/16/17 08/16/17 01:01 01:10 01:21 Temperature Pulse Rate 74 72 72 Pulse Rate [ Anterior Bilateral Throughout] Pulse Rate [ Posterior Bilateral Throughout] Respiratory 17 17 18 Rate Respiratory Rate [Anterior Bilateral Throughout] Respiratory Rate [Chest] Respiratory Rate [Posterior Bilateral Throughout] Blood Pressure 120/61 120/61 120/60 O2 Sat by Pulse 95 96 95 Oximetry 08/16/17 08/16/17 08/16/17 01:31 01:41 01:51 Temperature Pulse Rate 70 77 74 Pulse Rate [ Anterior Bilateral Throughout] Pulse Rate [ Posterior Bilateral Throughout] Respiratory 19 18 14 Rate Respiratory Rate [Anterior Bilateral Throughout] Respiratory Rate [Chest] Respiratory Rate [Posterior Bilateral Throughout] Blood Pressure 125/69 120/61 122/62 O2 Sat by Pulse 95 98 95 Oximetry 08/16/17 08/16/17 08/16/17 02:01 02:11 02:21 Temperature Pulse Rate 72 72 72 Pulse Rate [ Anterior Bilateral Throughout] Pulse Rate [ Posterior Bilateral Throughout] Respiratory 16 18 18 Rate Respiratory Rate [Anterior Bilateral Throughout] Respiratory Rate [Chest] Respiratory Rate [Posterior Bilateral Throughout] Blood Pressure 120/62 120/62 126/58 O2 Sat by Pulse 95 95 95 Oximetry 08/16/17 08/16/17 08/16/17 02:31 02:35 02:41 Temperature Pulse Rate 71 71 71 Pulse Rate [ Anterior Bilateral Throughout] Pulse Rate [ Posterior Bilateral Throughout] Respiratory 16 22 16 Rate Respiratory Rate [Anterior Bilateral Throughout] Respiratory Rate [Chest] Respiratory Rate [Posterior Bilateral Throughout] Blood Pressure 123/62 117/57 123/62 O2 Sat by Pulse 95 94 95 Oximetry 08/16/17 08/16/17 08/16/17 02:51 03:01 03:10 Temperature Pulse Rate 75 72 Pulse Rate [ Anterior Bilateral Throughout] Pulse Rate [ Posterior Bilateral Throughout] Respiratory 22 16 17 Rate Respiratory Rate [Anterior Bilateral Throughout] Respiratory Rate [Chest] Respiratory Rate [Posterior Bilateral Throughout] Blood Pressure 124/62 122/62 O2 Sat by Pulse 95 94 95 Oximetry 08/16/17 08/16/17 08/16/17 03:11 03:21 03:31 Temperature Pulse Rate 72 71 72 Pulse Rate [ Anterior Bilateral Throughout] Pulse Rate [ Posterior Bilateral Throughout] Respiratory 21 14 18 Rate Respiratory Rate [Anterior Bilateral Throughout] Respiratory Rate [Chest] Respiratory Rate [Posterior Bilateral Throughout] Blood Pressure 122/62 124/64 120/56 O2 Sat by Pulse 95 96 94 Oximetry 08/16/17 08/16/17 08/16/17 03:41 03:49 03:51 Temperature 98.0 F Pulse Rate 76 70 Pulse Rate [ Anterior Bilateral Throughout] Pulse Rate [ Posterior Bilateral Throughout] Respiratory 13 16 Rate Respiratory Rate [Anterior Bilateral Throughout] Respiratory Rate [Chest] Respiratory Rate [Posterior Bilateral Throughout] Blood Pressure 122/62 118/63 O2 Sat by Pulse 94 94 Oximetry 08/16/17 08/16/17 08/16/17 04:01 04:11 04:21 Temperature Pulse Rate 71 70 71 Pulse Rate [ Anterior Bilateral Throughout] Pulse Rate [ Posterior Bilateral Throughout] Respiratory 15 18 14 Rate Respiratory Rate [Anterior Bilateral Throughout] Respiratory Rate [Chest] Respiratory Rate [Posterior Bilateral Throughout] Blood Pressure 125/59 125/59 116/54 O2 Sat by Pulse 95 95 95 Oximetry 08/16/17 08/16/17 08/16/17 04:31 04:41 04:47 Temperature Pulse Rate 69 70 Pulse Rate [ Anterior Bilateral Throughout] Pulse Rate [ 82 Posterior Bilateral Throughout] Respiratory 14 18 Rate Respiratory Rate [Anterior Bilateral Throughout] Respiratory Rate [Chest] Respiratory 18 Rate [Posterior Bilateral Throughout] Blood Pressure 122/53 122/53 O2 Sat by Pulse 95 95 Oximetry 08/16/17 08/16/17 08/16/17 04:51 04:59 05:01 Temperature Pulse Rate 70 72 Pulse Rate [ Anterior Bilateral Throughout] Pulse Rate [ Posterior Bilateral Throughout] Respiratory 14 17 14 Rate Respiratory Rate [Anterior Bilateral Throughout] Respiratory 16 Rate [Chest] Respiratory Rate [Posterior Bilateral Throughout] Blood Pressure 117/57 108/63 O2 Sat by Pulse 94 95 94 Oximetry 08/16/17 08/16/17 08/16/17 05:03 06:29 08:00 Temperature 97.8 F Pulse Rate Pulse Rate [ Anterior Bilateral Throughout] Pulse Rate [ 73 Posterior Bilateral Throughout] Respiratory 18 Rate Respiratory Rate [Anterior Bilateral Throughout] Respiratory Rate [Chest] Respiratory 19 Rate [Posterior Bilateral Throughout] Blood Pressure O2 Sat by Pulse 95 Oximetry 08/16/17 08/16/17 08/16/17 08:34 08:37 09:04 Temperature Pulse Rate 69 Pulse Rate [ 77 Anterior Bilateral Throughout] Pulse Rate [ 68 Posterior Bilateral Throughout] Respiratory 12 Rate Respiratory 15 Rate [Anterior Bilateral Throughout] Respiratory Rate [Chest] Respiratory 12 Rate [Posterior Bilateral Throughout] Blood Pressure 138/69 O2 Sat by Pulse 93 Oximetry Constitutional: no acute distress, alert, other (supermorbidly obese. On BiPAP) Eyes: non-icteric ENT: oropharynx moist Neck: other (extremely large in circumference) Effort: normal Ascultation: Bilateral: clear, diminished breath sounds Percussion: Bilateral: not dull Cardiovascular: regular rate and rhythm Gastrointestinal: normoactive bowel sounds, soft, non-tender, non-distended, other (obese) Extremities: edema, other (bilateral lymphedema with chronic changes) Neurologic: normal mental status, non-focal exam Psychiatric: mood appropriate CBC and BMP: 08/16/17 05:25 08/12/17 04:31 ABG, PT/INR, D-dimer: ABG POC ABG pH 7.471 (7.35-7.45) H 08/15/17 04:20 POC ABG pCO2 53.8 (35-45) H 08/15/17 04:20 POC ABG pO2 81 (80-105) 08/15/17 04:20 POC ABG HCO3 39.3 08/15/17 04:20 POC ABG Total CO2 41 08/15/17 04:20 POC ABG O2 Sat 96 08/15/17 04:20 PT/INR, D-dimer PT 20.1 Sec. (12.2-14.9) H 08/16/17 05:25 INR 1.61 (0.87-1.13) H 08/16/17 05:25 Abnormal lab findings: Abnormal Labs 08/07/17 08/07/17 08/07/17 16:58 16:58 16:58 WBC 16.1 H RBC 5.44 H Hgb Hct MCV 74 L MCH 22 L MCHC 29 L RDW 21.7 H [place] % (Auto) Seg Neutrophils % Seg Neuts % (Manual) 87.0 H Lymphocytes % (Manual) 7.0 L Monocytes % (Manual) Eosinophils % (Manual) Basophils % (Manual) 2.0 H Seg Neutrophils # Man 14.0 H Lymphocytes # (Manual) 1.1 L Monocytes # (Manual) Eosinophils # (Manual) Basophils # (Manual) 0.3 H PT 16.2 H INR 1.23 H Heparin Anti-Xa Level POC ABG pH POC ABG pCO2 POC ABG pO2 VBG pH Chloride 96.2 L Carbon Dioxide 31 H Glucose Lactic Acid Calcium NT-Pro-B Natriuret Pep Total Protein 5.8 L Albumin 3.0 L TSH 08/07/17 08/07/17 08/07/17 16:58 16:58 16:58 WBC RBC Hgb Hct MCV MCH MCHC RDW [place] % (Auto) Seg Neutrophils % Seg Neuts % (Manual) Lymphocytes % (Manual) Monocytes % (Manual) Eosinophils % (Manual) Basophils % (Manual) Seg Neutrophils # Man Lymphocytes # (Manual) Monocytes # (Manual) Eosinophils # (Manual) Basophils # (Manual) PT INR Heparin Anti-Xa Level POC ABG pH POC ABG pCO2 POC ABG pO2 VBG pH 7.463 H Chloride Carbon Dioxide Glucose Lactic Acid 2.10 H* Calcium NT-Pro-B Natriuret Pep 2205 H Total Protein Albumin [facility] 08/09/17 08/09/17 08/10/17 10:57 13:37 08:04 WBC 14.5 H RBC Hgb 10.8 L 10.8 L Hct 35.1 L MCV 74 L 76 L MCH 23 L 23 L MCHC 31 L 30 L RDW 21.2 H 21.0 H [place] % (Auto) Seg Neutrophils % 75.4 H Seg Neuts % (Manual) Lymphocytes % (Manual) Monocytes % (Manual) 9.0 H Eosinophils % (Manual) 5.0 H Basophils % (Manual) Seg Neutrophils # Man 9.3 H Lymphocytes # (Manual) Monocytes # (Manual) 1.3 H Eosinophils # (Manual) 0.7 H Basophils # (Manual) PT INR Heparin Anti-Xa Level POC ABG pH POC ABG pCO2 POC ABG pO2 VBG pH Chloride 96.9 L Carbon Dioxide 32 H Glucose Lactic Acid Calcium 8.3 L NT-Pro-B Natriuret Pep Total Protein Albumin [facility] 08/10/17 08/10/17 08/10/17 08:04 08:04 14:50 WBC RBC Hgb Hct MCV MCH MCHC RDW [place] % (Auto) Seg Neutrophils % Seg Neuts % (Manual) Lymphocytes % (Manual) Monocytes % (Manual) Eosinophils % (Manual) Basophils % (Manual) Seg Neutrophils # Man Lymphocytes # (Manual) Monocytes # (Manual) Eosinophils # (Manual) Basophils # (Manual) PT INR Heparin Anti-Xa Level POC ABG pH POC ABG pCO2 65.9 H POC ABG pO2 VBG pH Chloride Carbon Dioxide 32 H Glucose 115 H Lactic Acid Calcium NT-Pro-B Natriuret Pep Total Protein Albumin TSH 4.900 H 08/11/17 08/11/17 08/11/17 07:12 07:12 07:12 WBC RBC Hgb 10.3 L Hct MCV 76 L MCH 22 L MCHC 29 L RDW 21.4 H [place] % (Auto) 8.8 H Seg Neutrophils % Seg Neuts % (Manual) Lymphocytes % (Manual) Monocytes % (Manual) Eosinophils % (Manual) Basophils % (Manual) Seg Neutrophils # Man Lymphocytes # (Manual) Monocytes # (Manual) Eosinophils # (Manual) Basophils # (Manual) PT INR Heparin Anti-Xa Level POC ABG pH POC ABG pCO2 POC ABG pO2 VBG pH Chloride Carbon Dioxide 35 H Glucose 105 H Lactic Acid Calcium NT-Pro-B Natriuret Pep Total Protein 5.8 L Albumin 3.1 L TSH 4.780 H 08/12/17 08/12/17 08/13/17 04:31 04:31 11:34 WBC RBC Hgb 10.7 L Hct 35.3 L MCV 76 L MCH 23 L MCHC 30 L RDW 21.3 H [place] % (Auto) Seg Neutrophils % Seg Neuts % (Manual) Lymphocytes % (Manual) Monocytes % (Manual) Eosinophils % (Manual) Basophils % (Manual) Seg Neutrophils # Man Lymphocytes # (Manual) Monocytes # (Manual) Eosinophils # (Manual) Basophils # (Manual) PT INR Heparin Anti-Xa Level POC ABG pH POC ABG pCO2 61.1 H POC ABG pO2 57 L VBG pH Chloride 95.8 L Carbon Dioxide 33 H Glucose Lactic Acid Calcium NT-Pro-B Natriuret Pep Total Protein 5.8 L Albumin 3.0 L TSH 08/14/17 08/14/17 08/14/17 10:36 10:36 10:36 WBC RBC Hgb 10.7 L Hct MCV MCH MCHC RDW [place] % (Auto) Seg Neutrophils % Seg Neuts % (Manual) Lymphocytes % (Manual) Monocytes % (Manual) Eosinophils % (Manual) Basophils % (Manual) Seg Neutrophils # Man Lymphocytes # (Manual) Monocytes # (Manual) Eosinophils # (Manual) Basophils # (Manual) PT 15.8 H INR 1.20 H Heparin Anti-Xa Level POC ABG pH POC ABG pCO2 POC ABG pO2 VBG pH Chloride Carbon Dioxide Glucose Lactic Acid Calcium NT-Pro-B Natriuret Pep 6070 H Total Protein Albumin TSH 08/14/17 08/14/17 08/14/17 17:23 20:37 23:18 WBC RBC Hgb Hct MCV MCH MCHC RDW [place] % (Auto) Seg Neutrophils % Seg Neuts % (Manual) Lymphocytes % (Manual) Monocytes % (Manual) Eosinophils % (Manual) Basophils % (Manual) Seg Neutrophils # Man Lymphocytes # (Manual) Monocytes # (Manual) Eosinophils # (Manual) Basophils # (Manual) PT INR Heparin Anti-Xa Level < 0.10 L POC ABG pH 7.566 H 7.494 H POC ABG pCO2 51.6 H POC ABG pO2 45 L 52 L VBG pH Chloride Carbon Dioxide Glucose Lactic Acid Calcium NT-Pro-B Natriuret Pep Total Protein Albumin TSH 08/15/17 08/15/17 08/15/17 04:15 04:20 08:26 WBC RBC Hgb Hct MCV MCH MCHC RDW [place] % (Auto) Seg Neutrophils % Seg Neuts % (Manual) Lymphocytes % (Manual) Monocytes % (Manual) Eosinophils % (Manual) Basophils % (Manual) Seg Neutrophils # Man Lymphocytes # (Manual) Monocytes # (Manual) Eosinophils # (Manual) Basophils # (Manual) PT 16.3 H INR 1.24 H Heparin Anti-Xa Level 0.12 L POC ABG pH 7.471 H POC ABG pCO2 53.8 H POC ABG pO2 VBG pH Chloride Carbon Dioxide Glucose Lactic Acid Calcium NT-Pro-B Natriuret Pep Total Protein Albumin TSH 08/15/17 08/16/17 08/16/17 22:00 05:25 05:25 WBC RBC Hgb 11.1 L Hct MCV MCH MCHC RDW [place] % (Auto) Seg Neutrophils % Seg Neuts % (Manual) Lymphocytes % (Manual) Monocytes % (Manual) Eosinophils % (Manual) Basophils % (Manual) Seg Neutrophils # Man Lymphocytes # (Manual) Monocytes # (Manual) Eosinophils # (Manual) Basophils # (Manual) PT 20.1 H INR 1.61 H Heparin Anti-Xa Level 0.17 L 0.28 L POC ABG pH POC ABG pCO2 POC ABG pO2 VBG pH Chloride Carbon Dioxide Glucose Lactic Acid Calcium NT-Pro-B Natriuret Pep Total Protein Albumin TSH
[2017-08-16] MEDS: LASIX IV SCH ×2 (10:28→18:21)
[2017-08-16] MEDS: LEVAQUIN PO SCH (10:29)
[2017-08-16] MEDS: HEPARIN/ 0.45% NACL-25,000 UNIT/500 ML 25,000 UNIT/500 ML BAG IV SCH ×2 (10:30→18:23)
--- NOTE | 2017-08-16 11:45 | Progress Note ---
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 flow oxygen, BIPAP prn, continue steroids, iv lasix, continue empiric rx for PE as cannot due PE study due to his weight, heparin drip and coumadin -, will need neb, NIV and HHS at home --acute systolic Congestive heart failure; echocardiogram findings reviewed ejection fraction 40- 45%, severe pulmonary hypertension, cardiology consult appreciated, no further cardiology invasive workup can be offered due to his weight, he exceeds weight for invasive testing -medical management --obstructive sleep apnea/obesity hypoventilation syndrome; , BiPAP at night Oxygen, duo nebs, pulmonary following, out patient sleep study --Severe pulmonary hypertension on echocardiogram; diuretics, fluid restriction , --Left lower lobe pneumonia/atelectasis/community-acquired; continue Levaquin , cultures negative to date , supportive care --Sepsis; continue empiric antibiotics, follow cultures, IV fluids --Lactic acidosis; continue IV fluids, IV antibiotics, follow levels --Leukocytosis secondary to sepsis; trending down --Chronic massive lymphedema; supportive care, wound care and lymphedema care as needed Lower extremity and left upper extremity venous Doppler negative for DVT --Morbid obesity; BMI of 82; counseling done, patient may benefit from bariatric surgical consultation or weight reduction program when medically stable --Physical therapy occupational therapy as tolerated --Discharge planning. Case management, possible home with home health when patient is stable Plan of care reviewed with the patient and his nurse, family members, sister at the bedside and answered all their questions Will need referal to weight loss program when clinically improved Disposition; possible discharge home with home health, home oxygen, outpatient sleep studies when medically stable The high probability of a clinically significant, sudden or life threatening deterioration of the [cv, pulmonary] system(s) required my full and direct attention, intervention and personal management. The aggregate critical care time was [44] minutes. This time is in addition to time spent performing reported procedures but includes the following: [] Data Review and interpretation [] Patient assessment and monitoring of vital signs [] Documentation [] Medication orders and management History Interval history: Patient denies sob despite hypoxia and wants to go home RT reports worsening hypoxia Review of systems Constitutional: No fevers, no malaise, no joint pains CVS: No chest pain, no orthopnea, no dyspnea on exertion, no pedal edema GI: No abdominal pain, no diarrhea, no vomiting, no constipation Respiratory: No shortness of breath, no wheezing, no coughing Hospitalist Physical - Physical exam Narrative exam: General.: Appears well, no distress, nontoxic, morbidly obese HEENT: Moist mucous membranes, extraocular muscles intact, no lymphadenopathy Neck: supple Cardiac: S1-S2 heard Lungs: decreased air entry, wheezing, Abdomen: soft , nontender, nondistended, bowel sounds positive Extremities: pitting edema in all four extremities Skin: no rash or lesions Neurologic: no gross focal deficits Psych: appropriate behavior, appropriate mood, corporative, judgment intact - Constitutional Vitals: Temp Pulse Resp BP Pulse Ox 97.8 F 77 15 138/69 93 08/16/17 08:00 08/16/17 09:04 08/16/17 09:04 08/16/17 08:34 08/16/17 08:34 General appearance: Present: mild distress, obese (morbidly obese) Results - Labs CBC & Chem 7: 08/16/17 14:04 08/16/17 14:04 Labs: Laboratory Last Values WBC 8.5 K/mm3 (4.5-11.0) 08/12/17 04:31 RBC 4.65 M/mm3 (3.65-5.03) 08/12/17 04:31 Hgb 11.1 gm/dl (11.8-15.2) L 08/16/17 05:25 Hct 36.6 % (35.5-45.6) 08/16/17 05:25 MCV 76 fl (84-94) L 08/12/17 04:31 MCH 23 pg (28-32) L 08/12/17 04:31 MCHC 30 % (32-34) L 08/12/17 04:31 RDW 21.3 % (13.2-15.2) H 08/12/17 04:31 Plt Count 277 K/mm3 (140-440) 08/16/17 05:25 Lymph % (Auto) 18.2 % (13.4-35.0) 08/12/17 04:31 [place] % (Auto) 7.0 % (0.0-7.3) 08/12/17 04:31 Eos % (Auto) 4.0 % (0.0-4.3) 08/12/17 04:31 Baso % (Auto) 0.8 % (0.0-1.8) 08/12/17 04:31 Lymph # 1.5 K/mm3 (1.2-5.4) 08/12/17 04:31 [place] # 0.6 K/mm3 (0.0-0.8) 08/12/17 04:31 Eos # 0.3 K/mm3 (0.0-0.4) 08/12/17 04:31 Baso # 0.1 K/mm3 (0.0-0.1) 08/12/17 04:31 Add Manual Diff Complete 08/09/17 10:57 Total Counted 100 08/09/17 10:57 Seg Neutrophils % 70.0 % (40.0-70.0) 08/12/17 04:31 Seg Neuts % (Manual) 64.0 % (40.0-70.0) 08/09/17 10:57 Band Neutrophils % 4.0 % 08/09/17 10:57 Lymphocytes % (Manual) 15.0 % (13.4-35.0) 08/09/17 10:57 Reactive Lymphs % (Man) 3.0 % 08/09/17 10:57 Monocytes % (Manual) 9.0 % (0.0-7.3) H 08/09/17 10:57 Eosinophils % (Manual) 5.0 % (0.0-4.3) H 08/09/17 10:57 Basophils % (Manual) 0 % (0.0-1.8) 08/09/17 10:57 Metamyelocytes % 0 % 08/09/17 10:57 Myelocytes % 0 % 08/09/17 10:57 Promyelocytes % 0 % 08/09/17 10:57 Blast Cells % 0 % 08/09/17 10:57 Nucleated RBC % Not Reportable 08/09/17 10:57 Seg Neutrophils # 5.9 K/mm3 (1.8-7.7) 08/12/17 04:31 Seg Neutrophils # Man 9.3 K/mm3 (1.8-7.7) H 08/09/17 10:57 Band Neutrophils # 0.6 K/mm3 08/09/17 10:57 Lymphocytes # (Manual) 2.2 K/mm3 (1.2-5.4) 08/09/17 10:57 Abs React Lymphs (Man) 0.4 K/mm3 08/09/17 10:57 Monocytes # (Manual) 1.3 K/mm3 (0.0-0.8) H 08/09/17 10:57 Eosinophils # (Manual) 0.7 K/mm3 (0.0-0.4) H 08/09/17 10:57 Basophils # (Manual) 0.0 K/mm3 (0.0-0.1) 08/09/17 10:57 Metamyelocytes # 0.0 K/mm3 08/09/17 10:57 Myelocytes # 0.0 K/mm3 08/09/17 10:57 Promyelocytes # 0.0 K/mm3 08/09/17 10:57 Blast Cells # 0.0 K/mm3 08/09/17 10:57 WBC Morphology Not Reportable 08/09/17 10:57 Hypersegmented Neuts Not Reportable 08/09/17 10:57 Hyposegmented Neuts Not Reportable 08/09/17 10:57 Hypogranular Neuts Not Reportable 08/09/17 10:57 Smudge Cells Not Reportable 08/09/17 10:57 Toxic Granulation Not Reportable 08/09/17 10:57 Toxic Vacuolation Not Reportable 08/09/17 10:57 Dohle Bodies Not Reportable 08/09/17 10:57 [place]uet Anomaly Not Reportable 08/09/17 10:57 Noa Rods Not Reportable 08/09/17 10:57 Platelet Estimate Consistent w auto 08/09/17 10:57 Clumped Platelets Not Reportable 08/09/17 10:57 Plt Clumps, EDTA Not Reportable 08/09/17 10:57 Large Platelets Not Reportable 08/09/17 10:57 Giant Platelets Few 08/09/17 10:57 Platelet Satelliting Not Reportable 08/09/17 10:57 Plt Morphology Comment Not Reportable 08/09/17 10:57 RBC Morphology Not Reportable 08/09/17 10:57 Dimorphic RBCs Not Reportable 08/09/17 10:57 Polychromasia Not Reportable 08/09/17 10:57 Hypochromasia 1+ 08/09/17 10:57 Poikilocytosis 1+ 08/09/17 10:57 Anisocytosis 1+ 08/09/17 10:57 Microcytosis 1+ 08/09/17 10:57 Macrocytosis Not Reportable 08/09/17 10:57 Spherocytes Not Reportable 08/09/17 10:57 Pappenheimer Bodies Not Reportable 08/09/17 10:57 Sickle Cells Not Reportable 08/09/17 10:57 Target Cells Not Reportable 08/09/17 10:57 Tear Drop Cells Not Reportable 08/09/17 10:57 Ovalocytes Few 08/09/17 10:57 Stomatocytes 1+ 08/09/17 10:57 Helmet Cells Not Reportable 08/09/17 10:57 [place] Bodies Not Reportable 08/09/17 10:57 [place] Rings Not Reportable 08/09/17 10:57 [place] Cells Not Reportable 08/09/17 10:57 Bite Cells Not Reportable 08/09/17 10:57 Crenated Cell Not Reportable 08/09/17 10:57 Elliptocytes Not Reportable 08/09/17 10:57 Acanthocytes (Spur) Not Reportable 08/09/17 10:57 Rouleaux Not Reportable 08/09/17 10:57 Hemoglobin C Crystals Not Reportable 08/09/17 10:57 Schistocytes Not Reportable 08/09/17 10:57 Malaria parasites Not Reportable 08/09/17 10:57 Cuco Bodies Not Reportable 08/09/17 10:57 Hem Pathologist Commnt No 08/09/17 10:57 PT 20.1 Sec. (12.2-14.9) H 08/16/17 05:25 INR 1.61 (0.87-1.13) H 08/16/17 05:25 APTT 29.0 Sec. (24.2-36.6) 08/14/17 10:36 Heparin Anti-Xa Level 0.28 U.I./ml (0.3-0.7) L 08/16/17 05:25 POC ABG pH 7.471 (7.35-7.45) H 08/15/17 04:20 POC ABG pCO2 53.8 (35-45) H 08/15/17 04:20 POC ABG pO2 81 (80-105) 08/15/17 04:20 POC ABG HCO3 39.3 08/15/17 04:20 POC ABG Total CO2 41 08/15/17 04:20 POC ABG O2 Sat 96 08/15/17 04:20 POC ABG Base Excess 16 08/15/17 04:20 VBG pH 7.463 (7.320-7.420) H 08/07/17 16:58 FiO2 100 % 08/15/17 04:20 Sodium 139 mmol/L (137-145) 08/12/17 04:31 Potassium 4.1 mmol/L (3.6-5.0) 08/12/17 04:31 Chloride 95.8 mmol/L (98-107) L 08/12/17 04:31 Carbon Dioxide 33 mmol/L (22-30) H 08/12/17 04:31 Anion Gap 14 mmol/L 08/12/17 04:31 BUN 12 mg/dL (9-20) 08/12/17 04:31 Creatinine 0.9 mg/dL (0.8-1.5) 08/12/17 04:31 Estimated GFR > 60 ml/min 08/12/17 04:31 BUN/Creatinine Ratio 13 % 08/12/17 04:31 Glucose 98 mg/dL (75-100) 08/12/17 04:31 Lactic Acid 0.90 mmol/L (0.7-2.0) 08/08/17 06:01 Calcium 8.7 mg/dL (8.4-10.2) 08/12/17 04:31 Magnesium 2.30 mg/dL (1.7-2.3) 08/12/17 04:31 Total Bilirubin 0.60 mg/dL (0.1-1.2) 08/12/17 04:31 Direct Bilirubin 0.2 mg/dL (0-0.2) 08/11/17 07:12 Indirect Bilirubin 0.3 mg/dL 08/11/17 07:12 AST 14 units/L (5-40) 08/12/17 04:31 ALT 14 units/L (7-56) 08/12/17 04:31 Alkaline Phosphatase 80 units/L (35-129) 08/12/17 04:31 NT-Pro-B Natriuret Pep 6070 pg/mL (0-450) H 08/14/17 10:36 Total Protein 5.8 g/dL (6.3-8.2) L 08/12/17 04:31 Albumin 3.0 g/dL (3.9-5) L 08/12/17 04:31 Albumin/Globulin Ratio 1.1 % 08/12/17 04:31 TSH 4.780 mlU/mL (0.270-4.200) H 08/11/17 07:12 Free T4 0.86 ng/dL (0.76-1.46) 08/11/17 07:12
[2017-08-16 14:39] LABS: Alanine Aminotransferase 10 units/L (7-56); BUN/Creatinine Ratio 27; Blood Urea Nitrogen 27 mg/dL (9-20); Calcium 8.7 mg/dL (8.4-10.2); Hemolysis Index 1
[2017-08-16 14:40] LABS: Mean Corpuscular HGB Conc 29 % (32-34); Mean Corpuscular Volume 75 fl (84-94); Platelet Count 292 K/mm3 (140-440)
[2017-08-16 14:52] LABS: Hematocrit 38.2 % (35.5-45.6); Hemoglobin 11.2 gm/dl (11.8-15.2); Mean Corpuscular Hemoglobin 22 pg (28-32); Red Cell Distribution Width 20.9 % (13.2-15.2)
[2017-08-16] MEDS: COUMADIN PO SCH (18:20)
[2017-08-16] MEDS: K-DUR PO SCH (18:30)
[2017-08-17] MEDS: DUONEB *Not for PRN Use IH SCH ×7 (00:32→23:00)
[2017-08-17] MEDS: LASIX IV SCH ×3 (01:44→17:02)
[2017-08-17 06:25] LABS: INR 3.2 (0.87-1.13)
--- NOTE | 2017-08-17 07:41 | Progress Note ---
Assessment and Plan Acute/Chronic hypercapniac respiratory failure. Secondary to super morbid obesity.now on 100% FiO2, high flow oxygen. Wheezing/Chest congestion. Controlled Sepsis, question about pneumonia. Completed antibiotics. No fever Obesity hyperventilation syndrome with acute decompensation. Pulmonary hypertension most likely class 2/3, see echocardiogram. Congestive heart failure with low ejection fraction. Good diuresis thus far,BP adequate RUSSEL. Probably active, never evaluated per family. Using BiPAP empirically at night. Reports to be feeling better with this, able to sleep. Super morbid obesity. Triggering all of the above Hypokalemia Recommendations FiO2 taper Potassium replacement Continue nebs and steroids Weight daily Currently on heparin. Adjust INR per protocol. Will need either a chest CTA or ventilation perfusion scan. Continue antibiotics and monitor cultures He continues to improve, probably can be moved outside of the ICU in the next 24 hours. Discussed with patient at the bedside. Critical care time was 31 minutes of [id number] evaluation coordination of care. Subjective Date of service: 08/17/17 Principal diagnosis: heart failure, hypercapnic respiratory failure, severe morbid obesity Interval history: Feeling better this morning. No wheezing or chest congestion reported. No cough Objective Vital Signs - 12hr 08/16/17 08/16/17 08/17/17 19:46 21:08 00:00 Temperature 98.6 F 98.8 F Pulse Rate 65 Pulse Rate [ Posterior Bilateral Throughout] Respiratory 16 Rate Respiratory Rate [Posterior Bilateral Throughout] Blood Pressure 109/58 O2 Sat by Pulse 95 Oximetry 08/17/17 08/17/17 08/17/17 00:34 00:44 04:00 Temperature 98.1 F Pulse Rate 53 L Pulse Rate [ 48 L Posterior Bilateral Throughout] Respiratory 16 Rate Respiratory 13 Rate [Posterior Bilateral Throughout] Blood Pressure O2 Sat by Pulse 95 Oximetry 08/17/17 08/17/17 04:12 04:13 Temperature Pulse Rate Pulse Rate [ 61 Posterior Bilateral Throughout] Respiratory Rate Respiratory 16 Rate [Posterior Bilateral Throughout] Blood Pressure O2 Sat by Pulse 97 Oximetry Constitutional: no acute distress, alert, other (high flow oxygen, 100%) Eyes: non-icteric ENT: oropharynx moist Neck: other (extremely large in circumference) Effort: normal Ascultation: Bilateral: clear, diminished breath sounds Cardiovascular: regular rate and rhythm Gastrointestinal: normoactive bowel sounds, soft, non-tender, non-distended, other (obese) Extremities: edema, other (bilateral lymphedema with chronic changes) Neurologic: normal mental status, non-focal exam Psychiatric: mood appropriate CBC and BMP: 08/16/17 14:04 08/16/17 14:04 ABG, PT/INR, D-dimer: ABG POC ABG pH 7.471 (7.35-7.45) H 08/15/17 04:20 POC ABG pCO2 53.8 (35-45) H 08/15/17 04:20 POC ABG pO2 81 (80-105) 08/15/17 04:20 POC ABG HCO3 39.3 08/15/17 04:20 POC ABG Total CO2 41 08/15/17 04:20 POC ABG O2 Sat 96 08/15/17 04:20 PT/INR, D-dimer PT 34.7 Sec. (12.2-14.9) H 08/17/17 05:58 INR 3.20 (0.87-1.13) H 08/17/17 05:58 Abnormal lab findings: Abnormal Labs 08/07/17 08/07/17 08/07/17 16:58 16:58 16:58 WBC 16.1 H RBC 5.44 H Hgb Hct MCV 74 L MCH 22 L MCHC 29 L RDW 21.7 H [place] % (Auto) Seg Neutrophils % Seg Neuts % (Manual) 87.0 H Lymphocytes % (Manual) 7.0 L Monocytes % (Manual) Eosinophils % (Manual) Basophils % (Manual) 2.0 H Seg Neutrophils # Man 14.0 H Lymphocytes # (Manual) 1.1 L Monocytes # (Manual) Eosinophils # (Manual) Basophils # (Manual) 0.3 H PT 16.2 H INR 1.23 H Heparin Anti-Xa Level POC ABG pH POC ABG pCO2 POC ABG pO2 VBG pH Potassium Chloride 96.2 L Carbon Dioxide 31 H BUN Glucose Lactic Acid Calcium NT-Pro-B Natriuret Pep Total Protein 5.8 L Albumin 3.0 L TSH 08/07/17 08/07/17 08/07/17 16:58 16:58 16:58 WBC RBC Hgb Hct MCV MCH MCHC RDW [place] % (Auto) Seg Neutrophils % Seg Neuts % (Manual) Lymphocytes % (Manual) Monocytes % (Manual) Eosinophils % (Manual) Basophils % (Manual) Seg Neutrophils # Man Lymphocytes # (Manual) Monocytes # (Manual) Eosinophils # (Manual) Basophils # (Manual) PT INR Heparin Anti-Xa Level POC ABG pH POC ABG pCO2 POC ABG pO2 VBG pH 7.463 H Potassium Chloride Carbon Dioxide BUN Glucose Lactic Acid 2.10 H* Calcium NT-Pro-B Natriuret Pep 2205 H Total Protein Albumin TSH 08/09/17 08/09/17 08/10/17 10:57 13:37 08:04 WBC 14.5 H RBC Hgb 10.8 L 10.8 L Hct 35.1 L MCV 74 L 76 L MCH 23 L 23 L MCHC 31 L 30 L RDW 21.2 H 21.0 H [place] % (Auto) Seg Neutrophils % 75.4 H Seg Neuts % (Manual) Lymphocytes % (Manual) Monocytes % (Manual) 9.0 H Eosinophils % (Manual) 5.0 H Basophils % (Manual) Seg Neutrophils # Man 9.3 H Lymphocytes # (Manual) Monocytes # (Manual) 1.3 H Eosinophils # (Manual) 0.7 H Basophils # (Manual) PT INR Heparin Anti-Xa Level POC ABG pH POC ABG pCO2 POC ABG pO2 VBG pH Potassium Chloride 96.9 L Carbon Dioxide 32 H BUN Glucose Lactic Acid Calcium 8.3 L NT-Pro-B Natriuret Pep Total Protein Albumin TSH 08/10/17 08/10/17 08/10/17 08:04 08:04 14:50 WBC RBC Hgb Hct MCV MCH MCHC RDW [place] % (Auto) Seg Neutrophils % Seg Neuts % (Manual) Lymphocytes % (Manual) Monocytes % (Manual) Eosinophils % (Manual) Basophils % (Manual) Seg Neutrophils # Man Lymphocytes # (Manual) Monocytes # (Manual) Eosinophils # (Manual) Basophils # (Manual) PT INR Heparin Anti-Xa Level POC ABG pH POC ABG pCO2 65.9 H POC ABG pO2 VBG pH Potassium Chloride Carbon Dioxide 32 H BUN Glucose 115 H Lactic Acid Calcium NT-Pro-B Natriuret Pep Total Protein Albumin TSH 4.900 H 08/11/17 08/11/17 08/11/17 07:12 07:12 07:12 WBC RBC Hgb 10.3 L Hct MCV 76 L MCH 22 L MCHC 29 L RDW 21.4 H [place] % (Auto) 8.8 H Seg Neutrophils % Seg Neuts % (Manual) Lymphocytes % (Manual) Monocytes % (Manual) Eosinophils % (Manual) Basophils % (Manual) Seg Neutrophils # Man Lymphocytes # (Manual) Monocytes # (Manual) Eosinophils # (Manual) Basophils # (Manual) PT INR Heparin Anti-Xa Level POC ABG pH POC ABG pCO2 POC ABG pO2 VBG pH Potassium Chloride Carbon Dioxide 35 H BUN Glucose 105 H Lactic Acid Calcium NT-Pro-B Natriuret Pep Total Protein 5.8 L Albumin 3.1 L TSH 4.780 H 08/12/17 08/12/17 08/13/17 04:31 04:31 11:34 WBC RBC Hgb 10.7 L Hct 35.3 L MCV 76 L MCH 23 L MCHC 30 L RDW 21.3 H [place] % (Auto) Seg Neutrophils % Seg Neuts % (Manual) Lymphocytes % (Manual) Monocytes % (Manual) Eosinophils % (Manual) Basophils % (Manual) Seg Neutrophils # Man Lymphocytes # (Manual) Monocytes # (Manual) Eosinophils # (Manual) Basophils # (Manual) PT INR Heparin Anti-Xa Level POC ABG pH POC ABG pCO2 61.1 H POC ABG pO2 57 L VBG pH Potassium Chloride 95.8 L Carbon Dioxide 33 H BUN Glucose Lactic Acid Calcium NT-Pro-B Natriuret Pep Total Protein 5.8 L Albumin 3.0 L TSH 08/14/17 08/14/17 08/14/17 10:36 10:36 10:36 WBC RBC Hgb 10.7 L Hct MCV MCH MCHC RDW [place] % (Auto) Seg Neutrophils % Seg Neuts % (Manual) Lymphocytes % (Manual) Monocytes % (Manual) Eosinophils % (Manual) Basophils % (Manual) Seg Neutrophils # Man Lymphocytes # (Manual) Monocytes # (Manual) Eosinophils # (Manual) Basophils # (Manual) PT 15.8 H INR 1.20 H Heparin Anti-Xa Level POC ABG pH POC ABG pCO2 POC ABG pO2 VBG pH Potassium Chloride Carbon Dioxide BUN Glucose Lactic Acid Calcium NT-Pro-B Natriuret Pep 6070 H Total Protein Albumin TSH 08/14/17 08/14/17 08/14/17 17:23 20:37 23:18 WBC RBC Hgb Hct MCV MCH MCHC RDW [place] % (Auto) Seg Neutrophils % Seg Neuts % (Manual) Lymphocytes % (Manual) Monocytes % (Manual) Eosinophils % (Manual) Basophils % (Manual) Seg Neutrophils # Man Lymphocytes # (Manual) Monocytes # (Manual) Eosinophils # (Manual) Basophils # (Manual) PT INR Heparin Anti-Xa Level < 0.10 L POC ABG pH 7.566 H 7.494 H POC ABG pCO2 51.6 H POC ABG pO2 45 L 52 L VBG pH Potassium Chloride Carbon Dioxide BUN Glucose Lactic Acid Calcium NT-Pro-B Natriuret Pep Total Protein Albumin TSH 08/15/17 08/15/17 08/15/17 04:15 04:20 08:26 WBC RBC Hgb Hct MCV MCH MCHC RDW [place] % (Auto) Seg Neutrophils % Seg Neuts % (Manual) Lymphocytes % (Manual) Monocytes % (Manual) Eosinophils % (Manual) Basophils % (Manual) Seg Neutrophils # Man Lymphocytes # (Manual) Monocytes # (Manual) Eosinophils # (Manual) Basophils # (Manual) PT 16.3 H INR 1.24 H Heparin Anti-Xa Level 0.12 L POC ABG pH 7.471 H POC ABG pCO2 53.8 H POC ABG pO2 VBG pH Potassium Chloride Carbon Dioxide BUN Glucose Lactic Acid Calcium NT-Pro-B Natriuret Pep Total Protein Albumin TSH 08/15/17 08/16/17 08/16/17 22:00 05:25 05:25 WBC RBC Hgb 11.1 L Hct MCV MCH MCHC RDW [place] % (Auto) Seg Neutrophils % Seg Neuts % (Manual) Lymphocytes % (Manual) Monocytes % (Manual) Eosinophils % (Manual) Basophils % (Manual) Seg Neutrophils # Man Lymphocytes # (Manual) Monocytes # (Manual) Eosinophils # (Manual) Basophils # (Manual) PT 20.1 H INR 1.61 H Heparin Anti-Xa Level 0.17 L 0.28 L POC ABG pH POC ABG pCO2 POC ABG pO2 VBG pH Potassium Chloride Carbon Dioxide BUN Glucose Lactic Acid Calcium NT-Pro-B Natriuret Pep Total Protein Albumin TSH 08/16/17 08/16/17 08/17/17 14:04 14:04 05:58 WBC RBC 5.10 H Hgb 11.2 L Hct MCV 75 L MCH 22 L MCHC 29 L RDW 20.9 H [place] % (Auto) Seg Neutrophils % Seg Neuts % (Manual) Lymphocytes % (Manual) Monocytes % (Manual) Eosinophils % (Manual) Basophils % (Manual) Seg Neutrophils # Man Lymphocytes # (Manual) Monocytes # (Manual) Eosinophils # (Manual) Basophils # (Manual) PT 34.7 H INR 3.20 H Heparin Anti-Xa Level POC ABG pH POC ABG pCO2 POC ABG pO2 VBG pH Potassium 3.5 L Chloride 93.1 L Carbon Dioxide 37 H BUN 27 H Glucose 226 H Lactic Acid Calcium NT-Pro-B Natriuret Pep Total Protein 5.8 L Albumin 3.0 L TSH
[2017-08-17] MEDS ORDERED: LASIX IV SCH (08:42)
[2017-08-17] MEDS: K-DUR PO SCH (09:29)
[2017-08-17] MEDS: LEVAQUIN PO SCH (09:29)
[2017-08-17] MEDS: GUAIFENESIN DM SYRUP PO PRN (09:38)
[2017-08-17] MEDS: MOTRIN PO PRN (17:30)
--- NOTE | 2017-08-17 21:38 | Progress Note ---
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, BIPAP prn, continue steroids, iv lasix, continue empiric rx for PE as cannot due PE study due to his weight, on coumadin which is therapeutic, check d-dimer -, will need neb, NIV and HHS at home --acute systolic Congestive heart failure; echocardiogram findings reviewed ejection fraction 40- 45%, severe pulmonary hypertension, cardiology consult appreciated, no further cardiology invasive workup can be offered due to his weight, he exceeds weight for invasive testing -medical management --obstructive sleep apnea/obesity hypoventilation syndrome; , BiPAP at night Oxygen, duo nebs, pulmonary following, out patient sleep study --Severe pulmonary hypertension on echocardiogram; diuretics, fluid restriction , --Left lower lobe pneumonia/atelectasis/community-acquired; continue Levaquin , cultures negative to date , supportive care --Sepsis; continue empiric antibiotics, follow cultures, IV fluids --Lactic acidosis; continue IV fluids, IV antibiotics, follow levels --Leukocytosis secondary to sepsis; trending down --Chronic massive lymphedema; supportive care, wound care and lymphedema care as needed Lower extremity and left upper extremity venous Doppler negative for DVT --Morbid obesity; BMI of 82; counseling done, patient may benefit from bariatric surgical consultation or weight reduction program when medically stable --Physical therapy occupational therapy as tolerated --Discharge planning. Case management, possible home with home health when patient is stable Plan of care reviewed with the patient and his nurse, family members, sister at the bedside and answered all their questions Will need referal to weight loss program when clinically improved Disposition; possible discharge home with home health, home oxygen, outpatient sleep studies when medically stable The high probability of a clinically significant, sudden or life threatening deterioration of the [cv, pulmonary] system(s) required my full and direct attention, intervention and personal management. The aggregate critical care time was [44] minutes. This time is in addition to time spent performing reported procedures but includes the following: [] Data Review and interpretation [] Patient assessment and monitoring of vital signs [] Documentation [] Medication orders and management History Interval history: Patient denies sob despite hypoxia and wants to go home RT reports worsening hypoxia Review of systems Constitutional: No fevers, no malaise, no joint pains CVS: No chest pain, no orthopnea, no dyspnea on exertion, no pedal edema GI: No abdominal pain, no diarrhea, no vomiting, no constipation Respiratory: No shortness of breath, no wheezing, no coughing Hospitalist Physical - Physical exam Narrative exam: General.: Appears well, no distress, nontoxic, morbidly obese HEENT: Moist mucous membranes, extraocular muscles intact, no lymphadenopathy Neck: supple Cardiac: S1-S2 heard Lungs: decreased air entry, wheezing, Abdomen: soft , nontender, nondistended, bowel sounds positive Extremities: pitting edema in all four extremities Skin: no rash or lesions Neurologic: no gross focal deficits Psych: appropriate behavior, appropriate mood, corporative, judgment intact - Constitutional Vitals: Temp Pulse Resp BP Pulse Ox 98.0 F 74 15 109/58 95 08/17/17 19:33 08/17/17 20:17 08/17/17 20:17 08/16/17 21:08 08/17/17 20:18 General appearance: Present: mild distress, obese (morbidly obese) Results - Labs CBC & Chem 7: 08/16/17 14:04 08/16/17 14:04 Labs: Laboratory Last Values WBC 7.6 K/mm3 (4.5-11.0) 08/16/17 14:04 RBC 5.10 M/mm3 (3.65-5.03) H 08/16/17 14:04 Hgb 11.2 gm/dl (11.8-15.2) L 08/16/17 14:04 Hct 38.2 % (35.5-45.6) 08/16/17 14:04 MCV 75 fl (84-94) L 08/16/17 14:04 MCH 22 pg (28-32) L 08/16/17 14:04 MCHC 29 % (32-34) L 08/16/17 14:04 RDW 20.9 % (13.2-15.2) H 08/16/17 14:04 Plt Count 292 K/mm3 (140-440) 08/16/17 14:04 Lymph % (Auto) 18.2 % (13.4-35.0) 08/12/17 04:31 [place] % (Auto) 7.0 % (0.0-7.3) 08/12/17 04:31 Eos % (Auto) 4.0 % (0.0-4.3) 08/12/17 04:31 Baso % (Auto) 0.8 % (0.0-1.8) 08/12/17 04:31 Lymph # 1.5 K/mm3 (1.2-5.4) 08/12/17 04:31 [place] # 0.6 K/mm3 (0.0-0.8) 08/12/17 04:31 Eos # 0.3 K/mm3 (0.0-0.4) 08/12/17 04:31 Baso # 0.1 K/mm3 (0.0-0.1) 08/12/17 04:31 Add Manual Diff Complete 08/09/17 10:57 Total Counted 100 08/09/17 10:57 Seg Neutrophils % 70.0 % (40.0-70.0) 08/12/17 04:31 Seg Neuts % (Manual) 64.0 % (40.0-70.0) 08/09/17 10:57 Band Neutrophils % 4.0 % 08/09/17 10:57 Lymphocytes % (Manual) 15.0 % (13.4-35.0) 08/09/17 10:57 Reactive Lymphs % (Man) 3.0 % 08/09/17 10:57 Monocytes % (Manual) 9.0 % (0.0-7.3) H 08/09/17 10:57 Eosinophils % (Manual) 5.0 % (0.0-4.3) H 08/09/17 10:57 Basophils % (Manual) 0 % (0.0-1.8) 08/09/17 10:57 Metamyelocytes % 0 % 08/09/17 10:57 Myelocytes % 0 % 08/09/17 10:57 Promyelocytes % 0 % 08/09/17 10:57 Blast Cells % 0 % 08/09/17 10:57 Nucleated RBC % Not Reportable 08/09/17 10:57 Seg Neutrophils # 5.9 K/mm3 (1.8-7.7) 08/12/17 04:31 Seg Neutrophils # Man 9.3 K/mm3 (1.8-7.7) H 08/09/17 10:57 Band Neutrophils # 0.6 K/mm3 08/09/17 10:57 Lymphocytes # (Manual) 2.2 K/mm3 (1.2-5.4) 08/09/17 10:57 Abs React Lymphs (Man) 0.4 K/mm3 08/09/17 10:57 Monocytes # (Manual) 1.3 K/mm3 (0.0-0.8) H 08/09/17 10:57 Eosinophils # (Manual) 0.7 K/mm3 (0.0-0.4) H 08/09/17 10:57 Basophils # (Manual) 0.0 K/mm3 (0.0-0.1) 08/09/17 10:57 Metamyelocytes # 0.0 K/mm3 08/09/17 10:57 Myelocytes # 0.0 K/mm3 08/09/17 10:57 Promyelocytes # 0.0 K/mm3 08/09/17 10:57 Blast Cells # 0.0 K/mm3 08/09/17 10:57 WBC Morphology Not Reportable 08/09/17 10:57 Hypersegmented Neuts Not Reportable 08/09/17 10:57 Hyposegmented Neuts Not Reportable 08/09/17 10:57 Hypogranular Neuts Not Reportable 08/09/17 10:57 Smudge Cells Not Reportable 08/09/17 10:57 Toxic Granulation Not Reportable 08/09/17 10:57 Toxic Vacuolation Not Reportable 08/09/17 10:57 Dohle Bodies Not Reportable 08/09/17 10:57 Pelger-Huet Anomaly Not Reportable 08/09/17 10:57 Noa Rods Not Reportable 08/09/17 10:57 Platelet Estimate Consistent w auto 08/09/17 10:57 Clumped Platelets Not Reportable 08/09/17 10:57 Plt Clumps, EDTA Not Reportable 08/09/17 10:57 Large Platelets Not Reportable 08/09/17 10:57 Giant Platelets Few 08/09/17 10:57 Platelet Satelliting Not Reportable 08/09/17 10:57 Plt Morphology Comment Not Reportable 08/09/17 10:57 RBC Morphology Not Reportable 08/09/17 10:57 Dimorphic RBCs Not Reportable 08/09/17 10:57 Polychromasia Not Reportable 08/09/17 10:57 Hypochromasia 1+ 08/09/17 10:57 Poikilocytosis 1+ 08/09/17 10:57 Anisocytosis 1+ 08/09/17 10:57 Microcytosis 1+ 08/09/17 10:57 Macrocytosis Not Reportable 08/09/17 10:57 Spherocytes Not Reportable 08/09/17 10:57 Pappenheimer Bodies Not Reportable 08/09/17 10:57 Sickle Cells Not Reportable 08/09/17 10:57 Target Cells Not Reportable 08/09/17 10:57 Tear Drop Cells Not Reportable 08/09/17 10:57 Ovalocytes Few 08/09/17 10:57 Stomatocytes 1+ 08/09/17 10:57 Helmet Cells Not Reportable 08/09/17 10:57 [place] Bodies Not Reportable 08/09/17 10:57 [place] Rings Not Reportable 08/09/17 10:57 [place] Cells Not Reportable 08/09/17 10:57 Bite Cells Not Reportable 08/09/17 10:57 Crenated Cell Not Reportable 08/09/17 10:57 Elliptocytes Not Reportable 08/09/17 10:57 Acanthocytes (Spur) Not Reportable 08/09/17 10:57 Rouleaux Not Reportable 08/09/17 10:57 Hemoglobin C Crystals Not Reportable 08/09/17 10:57 Schistocytes Not Reportable 08/09/17 10:57 Malaria parasites Not Reportable 08/09/17 10:57 Cuco Bodies Not Reportable 08/09/17 10:57 Hem Pathologist Commnt No 08/09/17 10:57 PT 34.7 Sec. (12.2-14.9) H 08/17/17 05:58 INR 3.20 (0.87-1.13) H 08/17/17 05:58 APTT 29.0 Sec. (24.2-36.6) 08/14/17 10:36 Heparin Anti-Xa Level 0.43 U.I./ml (0.3-0.7) 08/17/17 05:58 POC ABG pH 7.471 (7.35-7.45) H 08/15/17 04:20 POC ABG pCO2 53.8 (35-45) H 08/15/17 04:20 POC ABG pO2 81 (80-105) 08/15/17 04:20 POC ABG HCO3 39.3 08/15/17 04:20 POC ABG Total CO2 41 08/15/17 04:20 POC ABG O2 Sat 96 08/15/17 04:20 POC ABG Base Excess 16 08/15/17 04:20 VBG pH 7.463 (7.320-7.420) H 08/07/17 16:58 FiO2 100 % 08/15/17 04:20 Sodium 143 mmol/L (137-145) 08/16/17 14:04 Potassium 3.5 mmol/L (3.6-5.0) L 08/16/17 14:04 Chloride 93.1 mmol/L (98-107) L 08/16/17 14:04 Carbon Dioxide 37 mmol/L (22-30) H 08/16/17 14:04 Anion Gap 16 mmol/L 08/16/17 14:04 BUN 27 mg/dL (9-20) H 08/16/17 14:04 Creatinine 1.0 mg/dL (0.8-1.5) 08/16/17 14:04 Estimated GFR > 60 ml/min 08/16/17 14:04 BUN/Creatinine Ratio 27 % 08/16/17 14:04 Glucose 226 mg/dL (75-100) H 08/16/17 14:04 Lactic Acid 0.90 mmol/L (0.7-2.0) 08/08/17 06:01 Calcium 8.7 mg/dL (8.4-10.2) 08/16/17 14:04 Magnesium 2.30 mg/dL (1.7-2.3) 08/12/17 04:31 Total Bilirubin 0.70 mg/dL (0.1-1.2) 08/16/17 14:04 Direct Bilirubin 0.2 mg/dL (0-0.2) 08/11/17 07:12 Indirect Bilirubin 0.3 mg/dL 08/11/17 07:12 AST 11 units/L (5-40) 08/16/17 14:04 ALT 10 units/L (7-56) 08/16/17 14:04 Alkaline Phosphatase 68 units/L (35-129) 08/16/17 14:04 NT-Pro-B Natriuret Pep 6070 pg/mL (0-450) H 08/14/17 10:36 Total Protein 5.8 g/dL (6.3-8.2) L 08/16/17 14:04 Albumin 3.0 g/dL (3.9-5) L 08/16/17 14:04 Albumin/Globulin Ratio 1.1 % 08/16/17 14:04 TSH 4.780 mlU/mL (0.270-4.200) H 08/11/17 07:12 Free T4 0.86 ng/dL (0.76-1.46) 08/11/17 07:12
[2017-08-18] MEDS: LASIX IV SCH ×3 (02:24→18:38)
[2017-08-18 05:39] LABS: Hematocrit 38.9 % (35.5-45.6); Hemoglobin 11.3 gm/dl (11.8-15.2)
[2017-08-18 05:47] LABS: INR 2.04 (0.87-1.13)
[2017-08-18 05:53] LABS: BUN/Creatinine Ratio 33; Blood Urea Nitrogen 33 mg/dL (9-20); Hemolysis Index 1
[2017-08-18] MEDS: DUONEB *Not for PRN Use IH SCH ×5 (06:24→20:08)
[2017-08-18] MEDS: LEVAQUIN PO SCH (10:56)
[2017-08-18] MEDS: K-DUR PO SCH (10:56)
--- NOTE | 2017-08-18 12:15 | Progress Note ---
Assessment and Plan 26 y/o male, morbidly, morbidly obese, admitted with acute respiratory failure, most likely multifactorial. 1. Needs weight loss 2. has sleep study already scheduled, must keep appointment 3. Continue net negative state as renal function and BP will allow, suffers from systolic heart failure and severe pulmonary hypertension. 4. Suggest fluid restriction (patient has about 6 bottles of water and a large gatorade at bedside), 1.5 liters 5. Must have PPV on anytime he is sleeping as his heart rate drops into the 30' s while sleeping 6. Wean FiO2 for sats >88% Subjective Date of service: 08/18/17 Principal diagnosis: heart failure, hypercapnic respiratory failure, severe morbid obesity Interval history: No acute events overnight. currently on HFNC at 100%. Sats in the low 90's. Per patient, feels better. No family at bedside. Objective Vital Signs - 12hr 08/18/17 08/18/17 08/18/17 04:00 07:47 08:00 Temperature 98.0 F 97.5 F L Pulse Rate 45 L Pulse Rate [ 45 L Anterior Bilateral Throughout] Respiratory 15 Rate Respiratory 15 Rate [Anterior Bilateral Throughout] O2 Sat by Pulse 98 Oximetry 08/18/17 08/18/17 08:09 08:58 Temperature Pulse Rate Pulse Rate [ 60 Anterior Bilateral Throughout] Respiratory Rate Respiratory 20 Rate [Anterior Bilateral Throughout] O2 Sat by Pulse 93 89 Oximetry Constitutional: no acute distress, alert, other (high flow oxygen, 100%) Eyes: non-icteric ENT: oropharynx moist Neck: other (extremely large in circumference) Effort: normal Ascultation: Right: rhonchi ( ), Bilateral: clear, diminished breath sounds, wheezes (mild) Percussion: Bilateral: not dull Cardiovascular: regular rate and rhythm Gastrointestinal: normoactive bowel sounds, soft, non-tender, non-distended, other (obese) Extremities: edema, other (bilateral lymphedema with chronic changes) Neurologic: normal mental status, non-focal exam Psychiatric: mood appropriate CBC and BMP: 08/18/17 05:23 08/18/17 05:23 ABG, PT/INR, D-dimer: ABG POC ABG pH 7.471 (7.35-7.45) H 08/15/17 04:20 POC ABG pCO2 53.8 (35-45) H 08/15/17 04:20 POC ABG pO2 81 (80-105) 08/15/17 04:20 POC ABG HCO3 39.3 08/15/17 04:20 POC ABG Total CO2 41 08/15/17 04:20 POC ABG O2 Sat 96 08/15/17 04:20 PT/INR, D-dimer PT 24.2 Sec. (12.2-14.9) H 08/18/17 04:00 INR 2.04 (0.87-1.13) H 08/18/17 04:00 D-Dimer 1693.79 ng/mlDDU (0-234) H 08/17/17 21:48 Abnormal lab findings: Abnormal Labs 08/07/17 08/07/17 08/07/17 16:58 16:58 16:58 WBC 16.1 H RBC 5.44 H Hgb Hct MCV 74 L MCH 22 L MCHC 29 L RDW 21.7 H [place] % (Auto) Seg Neutrophils % Seg Neuts % (Manual) 87.0 H Lymphocytes % (Manual) 7.0 L Monocytes % (Manual) Eosinophils % (Manual) Basophils % (Manual) 2.0 H Seg Neutrophils # Man 14.0 H Lymphocytes # (Manual) 1.1 L Monocytes # (Manual) Eosinophils # (Manual) Basophils # (Manual) 0.3 H PT 16.2 H INR 1.23 H D-Dimer Heparin Anti-Xa Level POC ABG pH POC ABG pCO2 POC ABG pO2 VBG pH Potassium Chloride 96.2 L Carbon Dioxide 31 H BUN Glucose Lactic Acid Calcium NT-Pro-B Natriuret Pep Total Protein 5.8 L Albumin 3.0 L TSH 08/07/17 08/07/17 08/07/17 16:58 16:58 16:58 WBC RBC Hgb Hct MCV MCH MCHC RDW [place] % (Auto) Seg Neutrophils % Seg Neuts % (Manual) Lymphocytes % (Manual) Monocytes % (Manual) Eosinophils % (Manual) Basophils % (Manual) Seg Neutrophils # Man Lymphocytes # (Manual) Monocytes # (Manual) Eosinophils # (Manual) Basophils # (Manual) PT INR D-Dimer Heparin Anti-Xa Level POC ABG pH POC ABG pCO2 POC ABG pO2 VBG pH 7.463 H Potassium Chloride Carbon Dioxide BUN Glucose Lactic Acid 2.10 H* Calcium NT-Pro-B Natriuret Pep 2205 H Total Protein Albumin TSH 08/09/17 08/09/17 08/10/17 10:57 13:37 08:04 WBC 14.5 H RBC Hgb 10.8 L 10.8 L Hct 35.1 L MCV 74 L 76 L MCH 23 L 23 L MCHC 31 L 30 L RDW 21.2 H 21.0 H [place] % (Auto) Seg Neutrophils % 75.4 H Seg Neuts % (Manual) Lymphocytes % (Manual) Monocytes % (Manual) 9.0 H Eosinophils % (Manual) 5.0 H Basophils % (Manual) Seg Neutrophils # Man 9.3 H Lymphocytes # (Manual) Monocytes # (Manual) 1.3 H Eosinophils # (Manual) 0.7 H Basophils # (Manual) PT INR D-Dimer Heparin Anti-Xa Level POC ABG pH POC ABG pCO2 POC ABG pO2 VBG pH Potassium Chloride 96.9 L Carbon Dioxide 32 H BUN Glucose Lactic Acid Calcium 8.3 L NT-Pro-B Natriuret Pep Total Protein Albumin TSH 08/10/17 08/10/17 08/10/17 08:04 08:04 14:50 WBC RBC Hgb Hct MCV MCH MCHC RDW [place] % (Auto) Seg Neutrophils % Seg Neuts % (Manual) Lymphocytes % (Manual) Monocytes % (Manual) Eosinophils % (Manual) Basophils % (Manual) Seg Neutrophils # Man Lymphocytes # (Manual) Monocytes # (Manual) Eosinophils # (Manual) Basophils # (Manual) PT INR D-Dimer Heparin Anti-Xa Level POC ABG pH POC ABG pCO2 65.9 H POC ABG pO2 VBG pH Potassium Chloride Carbon Dioxide 32 H BUN Glucose 115 H Lactic Acid Calcium NT-Pro-B Natriuret Pep Total Protein Albumin TSH 4.900 H 08/11/17 08/11/17 08/11/17 07:12 07:12 07:12 WBC RBC Hgb 10.3 L Hct MCV 76 L MCH 22 L MCHC 29 L RDW 21.4 H [place] % (Auto) 8.8 H Seg Neutrophils % Seg Neuts % (Manual) Lymphocytes % (Manual) Monocytes % (Manual) Eosinophils % (Manual) Basophils % (Manual) Seg Neutrophils # Man Lymphocytes # (Manual) Monocytes # (Manual) Eosinophils # (Manual) Basophils # (Manual) PT INR D-Dimer Heparin Anti-Xa Level POC ABG pH POC ABG pCO2 POC ABG pO2 VBG pH Potassium Chloride Carbon Dioxide 35 H BUN Glucose 105 H Lactic Acid Calcium NT-Pro-B Natriuret Pep Total Protein 5.8 L Albumin 3.1 L TSH 4.780 H 08/12/17 08/12/17 08/13/17 04:31 04:31 11:34 WBC RBC Hgb 10.7 L Hct 35.3 L MCV 76 L MCH 23 L MCHC 30 L RDW 21.3 H [place] % (Auto) Seg Neutrophils % Seg Neuts % (Manual) Lymphocytes % (Manual) Monocytes % (Manual) Eosinophils % (Manual) Basophils % (Manual) Seg Neutrophils # Man Lymphocytes # (Manual) Monocytes # (Manual) Eosinophils # (Manual) Basophils # (Manual) PT INR D-Dimer Heparin Anti-Xa Level POC ABG pH POC ABG pCO2 61.1 H POC ABG pO2 57 L VBG pH Potassium Chloride 95.8 L Carbon Dioxide 33 H BUN Glucose Lactic Acid Calcium NT-Pro-B Natriuret Pep Total Protein 5.8 L Albumin 3.0 L TSH 08/14/17 08/14/17 08/14/17 10:36 10:36 10:36 WBC RBC Hgb 10.7 L Hct MCV MCH MCHC RDW [place] % (Auto) Seg Neutrophils % Seg Neuts % (Manual) Lymphocytes % (Manual) Monocytes % (Manual) Eosinophils % (Manual) Basophils % (Manual) Seg Neutrophils # Man Lymphocytes # (Manual) Monocytes # (Manual) Eosinophils # (Manual) Basophils # (Manual) PT 15.8 H INR 1.20 H D-Dimer Heparin Anti-Xa Level POC ABG pH POC ABG pCO2 POC ABG pO2 VBG pH Potassium Chloride Carbon Dioxide BUN Glucose Lactic Acid Calcium NT-Pro-B Natriuret Pep 6070 H Total Protein Albumin TSH 08/14/17 08/14/17 08/14/17 17:23 20:37 23:18 WBC RBC Hgb Hct MCV MCH MCHC RDW [place] % (Auto) Seg Neutrophils % Seg Neuts % (Manual) Lymphocytes % (Manual) Monocytes % (Manual) Eosinophils % (Manual) Basophils % (Manual) Seg Neutrophils # Man Lymphocytes # (Manual) Monocytes # (Manual) Eosinophils # (Manual) Basophils # (Manual) PT INR D-Dimer Heparin Anti-Xa Level < 0.10 L POC ABG pH 7.566 H 7.494 H POC ABG pCO2 51.6 H POC ABG pO2 45 L 52 L VBG pH Potassium Chloride Carbon Dioxide BUN Glucose Lactic Acid Calcium NT-Pro-B Natriuret Pep Total Protein Albumin TSH 08/15/17 08/15/17 08/15/17 04:15 04:20 08:26 WBC RBC Hgb Hct MCV MCH MCHC RDW [place] % (Auto) Seg Neutrophils % Seg Neuts % (Manual) Lymphocytes % (Manual) Monocytes % (Manual) Eosinophils % (Manual) Basophils % (Manual) Seg Neutrophils # Man Lymphocytes # (Manual) Monocytes # (Manual) Eosinophils # (Manual) Basophils # (Manual) PT 16.3 H INR 1.24 H D-Dimer Heparin Anti-Xa Level 0.12 L POC ABG pH 7.471 H POC ABG pCO2 53.8 H POC ABG pO2 VBG pH Potassium Chloride Carbon Dioxide BUN Glucose Lactic Acid Calcium NT-Pro-B Natriuret Pep Total Protein Albumin TSH 08/15/17 08/16/17 08/16/17 22:00 05:25 05:25 WBC RBC Hgb 11.1 L Hct MCV MCH MCHC RDW [place] % (Auto) Seg Neutrophils % Seg Neuts % (Manual) Lymphocytes % (Manual) Monocytes % (Manual) Eosinophils % (Manual) Basophils % (Manual) Seg Neutrophils # Man Lymphocytes # (Manual) Monocytes # (Manual) Eosinophils # (Manual) Basophils # (Manual) PT 20.1 H INR 1.61 H D-Dimer Heparin Anti-Xa Level 0.17 L 0.28 L POC ABG pH POC ABG pCO2 POC ABG pO2 VBG pH Potassium Chloride Carbon Dioxide BUN Glucose Lactic Acid Calcium NT-Pro-B Natriuret Pep Total Protein Albumin [facility] 08/16/17 08/16/17 08/17/17 14:04 14:04 05:58 WBC RBC 5.10 H Hgb 11.2 L Hct MCV 75 L MCH 22 L MCHC 29 L RDW 20.9 H [place] % (Auto) Seg Neutrophils % Seg Neuts % (Manual) Lymphocytes % (Manual) Monocytes % (Manual) Eosinophils % (Manual) Basophils % (Manual) Seg Neutrophils # Man Lymphocytes # (Manual) Monocytes # (Manual) Eosinophils # (Manual) Basophils # (Manual) PT 34.7 H INR 3.20 H D-Dimer Heparin Anti-Xa Level POC ABG pH POC ABG pCO2 POC ABG pO2 VBG pH Potassium 3.5 L Chloride 93.1 L Carbon Dioxide 37 H BUN 27 H Glucose 226 H Lactic Acid Calcium NT-Pro-B Natriuret Pep Total Protein 5.8 L Albumin 3.0 L TSH 08/17/17 08/18/17 08/18/17 21:48 04:00 05:23 WBC RBC Hgb 11.3 L Hct MCV MCH MCHC RDW [place] % (Auto) Seg Neutrophils % Seg Neuts % (Manual) Lymphocytes % (Manual) Monocytes % (Manual) Eosinophils % (Manual) Basophils % (Manual) Seg Neutrophils # Man Lymphocytes # (Manual) Monocytes # (Manual) Eosinophils # (Manual) Basophils # (Manual) PT 24.2 H INR 2.04 H D-Dimer 1693.79 H Heparin Anti-Xa Level POC ABG pH POC ABG pCO2 POC ABG pO2 VBG pH Potassium Chloride Carbon Dioxide BUN Glucose Lactic Acid Calcium NT-Pro-B Natriuret Pep Total Protein Albumin TSH 08/18/17 05:23 WBC RBC Hgb Hct MCV MCH MCHC RDW [place] % (Auto) Seg Neutrophils % Seg Neuts % (Manual) Lymphocytes % (Manual) Monocytes % (Manual) Eosinophils % (Manual) Basophils % (Manual) Seg Neutrophils # Man Lymphocytes # (Manual) Monocytes # (Manual) Eosinophils # (Manual) Basophils # (Manual) PT INR D-Dimer Heparin Anti-Xa Level POC ABG pH POC ABG pCO2 POC ABG pO2 VBG pH Potassium Chloride 86.8 L Carbon Dioxide 38 H BUN 33 H Glucose 355 H Lactic Acid Calcium NT-Pro-B Natriuret Pep Total Protein Albumin TSH
[2017-08-18] MEDS ORDERED: COUMADIN PO SCH (17:00)
[2017-08-19] MEDS: DUONEB *Not for PRN Use IH SCH ×5 (00:47→23:29)
[2017-08-19] MEDS: LASIX IV SCH ×3 (02:42→17:56)
[2017-08-19 04:55] LABS: INR 1.6 (0.87-1.13)
[2017-08-19] MEDS: K-DUR PO SCH (10:42)
--- NOTE | 2017-08-19 14:59 | Progress Note ---
Assessment and Plan Assessment and plan: 26-year-old morbidly obese male patient with history of bronchial asthma and diabetes mellitus chronic lymphedema admitted through emergency room with worsening shortness of breath, , noted to be in acute on chronic respiratory failure, and community-acquired pneumonia, --Acute on chronic hypoxic, hypercapnic respiratory failure continue high flow oxygen, BIPAP prn, tapering dose of steroids iv lasix, --empiric rx for PE as cannot due PE study due to his weight, on coumadin which is therapeutic, will need neb, NIV and HHS at home --Acute systolic congestive heart failure ; left ventricular ejection fraction 40-45% with severe pulmonary hypertension Continue current anti-failure medications --Status sleep apnea/obesity hypoventilation syndrome/morbid obesity Continue, BiPAP at night, Oxygen, duo nebs, pulmonary following, out patient sleep study --Severe pulmonary hypertension on echocardiogram; diuretics, fluid restriction , --Left lower lobe pneumonia/atelectasis/community-acquired; received full dose of antibiotics --Sepsis; resolved --Lactic acidosis; resolved --Leukocytosis secondary to sepsis; trending down --Chronic massive lymphedema; supportive care, wound care and lymphedema care as needed Lower extremity and left upper extremity venous Doppler negative for DVT --Morbid obesity; BMI of 82; counseling done, patient may benefit from bariatric surgical consultation or weight reduction program when medically stable --Physical therapy occupational therapy as tolerated --Discharge planning. Case management, possible home with home health when patient is stable Critical care time 32 minutes History Interval history: Patient seen and evaluated medical records reviewed No new events reported by the nursing staff Patient feels better no new complaints Vital signs stable Hospitalist Physical - Constitutional Vitals: Temp Pulse Resp BP Pulse Ox 98.4 F 88 22 110/70 91 08/19/17 12:00 08/19/17 13:00 08/19/17 13:00 08/19/17 13:00 08/19/17 13:00 General appearance: Present: mild distress, obese (morbidly obese) - EENT Eyes: Present: PERRL, EOM intact - Neck Neck: Present: supple, normal ROM - Respiratory Respiratory effort: normal Respiratory: bilateral: diminished, rhonchi, negative: rales, wheezing - Cardiovascular Rhythm: regular Heart Sounds: Present: S1 & S2 - Extremities Extremities: abnormal (morbidly obese) Extremity abnormal: edema - Abdominal General gastrointestinal: soft, non-tender, non-distended, normal bowel sounds - Integumentary Integumentary: Present: clear, warm (chronic edema) - Psychiatric Psychiatric: appropriate mood/affect, cooperative - Neurologic Neurologic: CNII-XII intact, moves all extremities Results - Labs CBC & Chem 7: 08/20/17 03:00 08/20/17 03:00 Labs: Laboratory Last Values WBC 7.6 K/mm3 (4.5-11.0) 08/16/17 14:04 RBC 5.10 M/mm3 (3.65-5.03) H 08/16/17 14:04 Hgb 11.3 gm/dl (11.8-15.2) L 08/18/17 05:23 Hct 38.9 % (35.5-45.6) 08/18/17 05:23 MCV 75 fl (84-94) L 08/16/17 14:04 MCH 22 pg (28-32) L 08/16/17 14:04 MCHC 29 % (32-34) L 08/16/17 14:04 RDW 20.9 % (13.2-15.2) H 08/16/17 14:04 Plt Count 269 K/mm3 (140-440) 08/18/17 05:23 Lymph % (Auto) 18.2 % (13.4-35.0) 08/12/17 04:31 [place] % (Auto) 7.0 % (0.0-7.3) 08/12/17 04:31 Eos % (Auto) 4.0 % (0.0-4.3) 08/12/17 04:31 Baso % (Auto) 0.8 % (0.0-1.8) 08/12/17 04:31 Lymph # 1.5 K/mm3 (1.2-5.4) 08/12/17 04:31 [place] # 0.6 K/mm3 (0.0-0.8) 08/12/17 04:31 Eos # 0.3 K/mm3 (0.0-0.4) 08/12/17 04:31 Baso # 0.1 K/mm3 (0.0-0.1) 08/12/17 04:31 Add Manual Diff Complete 08/09/17 10:57 Total Counted 100 08/09/17 10:57 Seg Neutrophils % 70.0 % (40.0-70.0) 08/12/17 04:31 Seg Neuts % (Manual) 64.0 % (40.0-70.0) 08/09/17 10:57 Band Neutrophils % 4.0 % 08/09/17 10:57 Lymphocytes % (Manual) 15.0 % (13.4-35.0) 08/09/17 10:57 Reactive Lymphs % (Man) 3.0 % 08/09/17 10:57 Monocytes % (Manual) 9.0 % (0.0-7.3) H 08/09/17 10:57 Eosinophils % (Manual) 5.0 % (0.0-4.3) H 08/09/17 10:57 Basophils % (Manual) 0 % (0.0-1.8) 08/09/17 10:57 Metamyelocytes % 0 % 08/09/17 10:57 Myelocytes % 0 % 08/09/17 10:57 Promyelocytes % 0 % 08/09/17 10:57 Blast Cells % 0 % 08/09/17 10:57 Nucleated RBC % Not Reportable 08/09/17 10:57 Seg Neutrophils # 5.9 K/mm3 (1.8-7.7) 08/12/17 04:31 Seg Neutrophils # Man 9.3 K/mm3 (1.8-7.7) H 08/09/17 10:57 Band Neutrophils # 0.6 K/mm3 08/09/17 10:57 Lymphocytes # (Manual) 2.2 K/mm3 (1.2-5.4) 08/09/17 10:57 Abs React Lymphs (Man) 0.4 K/mm3 08/09/17 10:57 Monocytes # (Manual) 1.3 K/mm3 (0.0-0.8) H 08/09/17 10:57 Eosinophils # (Manual) 0.7 K/mm3 (0.0-0.4) H 08/09/17 10:57 Basophils # (Manual) 0.0 K/mm3 (0.0-0.1) 08/09/17 10:57 Metamyelocytes # 0.0 K/mm3 08/09/17 10:57 Myelocytes # 0.0 K/mm3 08/09/17 10:57 Promyelocytes # 0.0 K/mm3 08/09/17 10:57 Blast Cells # 0.0 K/mm3 08/09/17 10:57 WBC Morphology Not Reportable 08/09/17 10:57 Hypersegmented Neuts Not Reportable 08/09/17 10:57 Hyposegmented Neuts Not Reportable 08/09/17 10:57 Hypogranular Neuts Not Reportable 08/09/17 10:57 Smudge Cells Not Reportable 08/09/17 10:57 Toxic Granulation Not Reportable 08/09/17 10:57 Toxic Vacuolation Not Reportable 08/09/17 10:57 Dohle Bodies Not Reportable 08/09/17 10:57 Pelger-Huet Anomaly Not Reportable 08/09/17 10:57 Noa Rods Not Reportable 08/09/17 10:57 Platelet Estimate Consistent w auto 08/09/17 10:57 Clumped Platelets Not Reportable 08/09/17 10:57 Plt Clumps, EDTA Not Reportable 08/09/17 10:57 Large Platelets Not Reportable 08/09/17 10:57 Giant Platelets Few 08/09/17 10:57 Platelet Satelliting Not Reportable 08/09/17 10:57 Plt Morphology Comment Not Reportable 08/09/17 10:57 RBC Morphology Not Reportable 08/09/17 10:57 Dimorphic RBCs Not Reportable 08/09/17 10:57 Polychromasia Not Reportable 08/09/17 10:57 Hypochromasia 1+ 08/09/17 10:57 Poikilocytosis 1+ 08/09/17 10:57 Anisocytosis 1+ 08/09/17 10:57 Microcytosis 1+ 08/09/17 10:57 Macrocytosis Not Reportable 08/09/17 10:57 Spherocytes Not Reportable 08/09/17 10:57 Pappenheimer Bodies Not Reportable 08/09/17 10:57 Sickle Cells Not Reportable 08/09/17 10:57 Target Cells Not Reportable 08/09/17 10:57 Tear Drop Cells Not Reportable 08/09/17 10:57 Ovalocytes Few 08/09/17 10:57 Stomatocytes 1+ 08/09/17 10:57 Helmet Cells Not Reportable 08/09/17 10:57 Harley-Morley Bodies Not Reportable 08/09/17 10:57 [place] Rings Not Reportable 08/09/17 10:57 Mignon Cells Not Reportable 08/09/17 10:57 Bite Cells Not Reportable 08/09/17 10:57 Crenated Cell Not Reportable 08/09/17 10:57 Elliptocytes Not Reportable 08/09/17 10:57 Acanthocytes (Spur) Not Reportable 08/09/17 10:57 Rouleaux Not Reportable 08/09/17 10:57 Hemoglobin C Crystals Not Reportable 08/09/17 10:57 Schistocytes Not Reportable 08/09/17 10:57 Malaria parasites Not Reportable 08/09/17 10:57 Cuco Bodies Not Reportable 08/09/17 10:57 Hem Pathologist Commnt No 08/09/17 10:57 PT 20.0 Sec. (12.2-14.9) H 08/19/17 04:30 INR 1.60 (0.87-1.13) H 08/19/17 04:30 APTT 29.0 Sec. (24.2-36.6) 08/14/17 10:36 D-Dimer 1693.79 ng/mlDDU (0-234) H 08/17/17 21:48 Heparin Anti-Xa Level 0.43 U.I./ml (0.3-0.7) 08/17/17 05:58 POC ABG pH 7.471 (7.35-7.45) H 08/15/17 04:20 POC ABG pCO2 53.8 (35-45) H 08/15/17 04:20 POC ABG pO2 81 (80-105) 08/15/17 04:20 POC ABG HCO3 39.3 08/15/17 04:20 POC ABG Total CO2 41 08/15/17 04:20 POC ABG O2 Sat 96 08/15/17 04:20 POC ABG Base Excess 16 08/15/17 04:20 VBG pH 7.463 (7.320-7.420) H 08/07/17 16:58 FiO2 100 % 08/15/17 04:20 Sodium 140 mmol/L (137-145) 08/18/17 05:23 Potassium 3.8 mmol/L (3.6-5.0) 08/18/17 05:23 Chloride 86.8 mmol/L (98-107) L 08/18/17 05:23 Carbon Dioxide 38 mmol/L (22-30) H 08/18/17 05:23 Anion Gap 19 mmol/L 08/18/17 05:23 BUN 33 mg/dL (9-20) H 08/18/17 05:23 Creatinine 1.0 mg/dL (0.8-1.5) 08/18/17 05:23 Estimated GFR > 60 ml/min 08/18/17 05:23 BUN/Creatinine Ratio 33 % 08/18/17 05:23 Glucose 355 mg/dL (75-100) H 08/18/17 05:23 Lactic Acid 0.90 mmol/L (0.7-2.0) 08/08/17 06:01 Calcium 9.0 mg/dL (8.4-10.2) 08/18/17 05:23 Magnesium 2.30 mg/dL (1.7-2.3) 08/12/17 04:31 Total Bilirubin 0.70 mg/dL (0.1-1.2) 08/16/17 14:04 Direct Bilirubin 0.2 mg/dL (0-0.2) 08/11/17 07:12 Indirect Bilirubin 0.3 mg/dL 08/11/17 07:12 AST 11 units/L (5-40) 08/16/17 14:04 ALT 10 units/L (7-56) 08/16/17 14:04 Alkaline Phosphatase 68 units/L (35-129) 08/16/17 14:04 NT-Pro-B Natriuret Pep 6070 pg/mL (0-450) H 08/14/17 10:36 Total Protein 5.8 g/dL (6.3-8.2) L 08/16/17 14:04 Albumin 3.0 g/dL (3.9-5) L 08/16/17 14:04 Albumin/Globulin Ratio 1.1 % 08/16/17 14:04 TSH 4.780 mlU/mL (0.270-4.200) H 08/11/17 07:12 Free T4 0.86 ng/dL (0.76-1.46) 08/11/17 07:12
[2017-08-19] MEDS: COUMADIN PO SCH (17:55)
[2017-08-19] MEDS: PROVENTIL IH PRN (20:22)
[2017-08-20 04:56] LABS: Hematocrit 40.3 % (35.5-45.6); Hemoglobin 11.7 gm/dl (11.8-15.2)
[2017-08-20 05:07] LABS: BUN/Creatinine Ratio 38; Blood Urea Nitrogen 34 mg/dL (9-20); Calcium 9.1 mg/dL (8.4-10.2); Hemolysis Index 1; INR 1.87 (0.87-1.13)
[2017-08-20] MEDS: LASIX IV SCH ×3 (05:57→17:29)
[2017-08-20] MEDS: DUONEB *Not for PRN Use IH SCH ×2 (08:25→14:17)
[2017-08-20] MEDS: K-DUR PO SCH (09:10)
--- NOTE | 2017-08-20 09:41 | Progress Note ---
Assessment and Plan 26 y/o male, morbidly, morbidly obese, admitted with acute respiratory failure, most likely multifactorial. 1. Needs weight loss 2. has sleep study already scheduled, must keep appointment 3. Continue net negative state as renal function and BP will allow, suffers from systolic heart failure and severe pulmonary hypertension. 4. Suggest fluid restriction (patient has about 6 bottles of water and a large gatorade at bedside), 1.5 liters 5. Must have PPV on anytime he is sleeping as his heart rate drops into the 30' s while sleeping 6. Wean FiO2 for sats >88% 7. Still debating the clinical possiblity of essentially life long anticoagulation. Echo was not as helpful as hoped to be. Will discuss again on rounds today as a decision needs to be made. Subjective Date of service: 08/20/17 Principal diagnosis: heart failure, hypercapnic respiratory failure, severe morbid obesity Interval history: Had echo, but this time, views were limited and cards unable to comment on right side as before. O2 down to 70% and flow at 35. Sats in the mid 90's and stable. No family at bedside. Objective Vital Signs - 12hr 08/19/17 08/19/17 08/19/17 22:00 22:32 23:00 Temperature 98.2 F Pulse Rate 75 64 Pulse Rate [ Posterior Bilateral Throughout] Respiratory 11 L 21 Rate Respiratory Rate [Chest] Respiratory Rate [Posterior Bilateral Throughout] Blood Pressure 102/51 106/62 O2 Sat by Pulse 93 95 Oximetry 08/19/17 08/19/17 08/19/17 23:29 23:44 23:54 Temperature Pulse Rate 69 Pulse Rate [ 75 64 Posterior Bilateral Throughout] Respiratory 21 Rate Respiratory Rate [Chest] Respiratory 20 18 Rate [Posterior Bilateral Throughout] Blood Pressure 106/54 O2 Sat by Pulse 97 Oximetry 08/20/17 08/20/17 08/20/17 00:00 00:08 01:00 Temperature 98.8 F Pulse Rate 59 L 57 L 59 L Pulse Rate [ Posterior Bilateral Throughout] Respiratory 18 18 21 Rate Respiratory 20 Rate [Chest] Respiratory Rate [Posterior Bilateral Throughout] Blood Pressure 106/54 106/56 106/56 O2 Sat by Pulse 97 97 98 Oximetry 08/20/17 08/20/17 08/20/17 02:00 02:05 03:00 Temperature Pulse Rate 55 L 55 L 59 L Pulse Rate [ Posterior Bilateral Throughout] Respiratory 16 16 14 Rate Respiratory Rate [Chest] Respiratory Rate [Posterior Bilateral Throughout] Blood Pressure 109/54 116/54 O2 Sat by Pulse 99 98 99 Oximetry 08/20/17 08/20/17 08/20/17 03:15 03:23 04:00 Temperature Pulse Rate 50 L 50 L Pulse Rate [ Posterior Bilateral Throughout] Respiratory 16 13 14 Rate Respiratory 20 Rate [Chest] Respiratory Rate [Posterior Bilateral Throughout] Blood Pressure 116/54 116/54 O2 Sat by Pulse 98 96 97 Oximetry 08/20/17 08/20/17 08/20/17 04:35 05:00 06:00 Temperature 98.4 F Pulse Rate 50 L 51 L Pulse Rate [ Posterior Bilateral Throughout] Respiratory 16 16 Rate Respiratory Rate [Chest] Respiratory Rate [Posterior Bilateral Throughout] Blood Pressure 106/52 114/60 O2 Sat by Pulse 98 97 Oximetry 08/20/17 08/20/17 08/20/17 07:00 08:00 08:31 Temperature Pulse Rate 50 L 55 L Pulse Rate [ 55 L Posterior Bilateral Throughout] Respiratory 17 14 Rate Respiratory Rate [Chest] Respiratory 22 Rate [Posterior Bilateral Throughout] Blood Pressure 109/58 115/60 O2 Sat by Pulse 97 99 97 Oximetry 08/20/17 08:47 Temperature Pulse Rate Pulse Rate [ Posterior Bilateral Throughout] Respiratory Rate Respiratory Rate [Chest] Respiratory Rate [Posterior Bilateral Throughout] Blood Pressure O2 Sat by Pulse 95 Oximetry Constitutional: no acute distress, alert, other (high flow oxygen, 100%) Eyes: non-icteric ENT: oropharynx moist Neck: other (extremely large in circumference) Effort: normal Ascultation: Right: rhonchi ( ), Bilateral: clear, diminished breath sounds, wheezes (mild) Percussion: Bilateral: not dull Cardiovascular: regular rate and rhythm Gastrointestinal: normoactive bowel sounds, soft, non-tender, non-distended, other (obese) Extremities: edema, other (bilateral lymphedema with chronic changes) Neurologic: normal mental status, non-focal exam Psychiatric: mood appropriate CBC and BMP: 08/20/17 03:00 08/20/17 03:00 ABG, PT/INR, D-dimer: ABG POC ABG pH 7.471 (7.35-7.45) H 08/15/17 04:20 POC ABG pCO2 53.8 (35-45) H 08/15/17 04:20 POC ABG pO2 81 (80-105) 08/15/17 04:20 POC ABG HCO3 39.3 08/15/17 04:20 POC ABG Total CO2 41 08/15/17 04:20 POC ABG O2 Sat 96 08/15/17 04:20 PT/INR, D-dimer PT 22.7 Sec. (12.2-14.9) H 08/20/17 03:00 INR 1.87 (0.87-1.13) H 08/20/17 03:00 D-Dimer 1693.79 ng/mlDDU (0-234) H 08/17/17 21:48 Abnormal lab findings: Abnormal Labs 08/07/17 08/07/17 08/07/17 16:58 16:58 16:58 WBC 16.1 H RBC 5.44 H Hgb Hct MCV 74 L MCH 22 L MCHC 29 L RDW 21.7 H [place] % (Auto) Seg Neutrophils % Seg Neuts % (Manual) 87.0 H Lymphocytes % (Manual) 7.0 L Monocytes % (Manual) Eosinophils % (Manual) Basophils % (Manual) 2.0 H Seg Neutrophils # Man 14.0 H Lymphocytes # (Manual) 1.1 L Monocytes # (Manual) Eosinophils # (Manual) Basophils # (Manual) 0.3 H PT 16.2 H INR 1.23 H D-Dimer Heparin Anti-Xa Level POC ABG pH POC ABG pCO2 POC ABG pO2 VBG pH Potassium Chloride 96.2 L Carbon Dioxide 31 H BUN Glucose Lactic Acid Calcium NT-Pro-B Natriuret Pep Total Protein 5.8 L Albumin 3.0 L TSH 08/07/17 08/07/17 08/07/17 16:58 16:58 16:58 WBC RBC Hgb Hct MCV MCH MCHC RDW [place] % (Auto) Seg Neutrophils % Seg Neuts % (Manual) Lymphocytes % (Manual) Monocytes % (Manual) Eosinophils % (Manual) Basophils % (Manual) Seg Neutrophils # Man Lymphocytes # (Manual) Monocytes # (Manual) Eosinophils # (Manual) Basophils # (Manual) PT INR D-Dimer Heparin Anti-Xa Level POC ABG pH POC ABG pCO2 POC ABG pO2 VBG pH 7.463 H Potassium Chloride Carbon Dioxide BUN Glucose Lactic Acid 2.10 H* Calcium NT-Pro-B Natriuret Pep 2205 H Total Protein Albumin TSH 08/09/17 08/09/17 08/10/17 10:57 13:37 08:04 WBC 14.5 H RBC Hgb 10.8 L 10.8 L Hct 35.1 L MCV 74 L 76 L MCH 23 L 23 L MCHC 31 L 30 L RDW 21.2 H 21.0 H [place] % (Auto) Seg Neutrophils % 75.4 H Seg Neuts % (Manual) Lymphocytes % (Manual) Monocytes % (Manual) 9.0 H Eosinophils % (Manual) 5.0 H Basophils % (Manual) Seg Neutrophils # Man 9.3 H Lymphocytes # (Manual) Monocytes # (Manual) 1.3 H Eosinophils # (Manual) 0.7 H Basophils # (Manual) PT INR D-Dimer Heparin Anti-Xa Level POC ABG pH POC ABG pCO2 POC ABG pO2 VBG pH Potassium Chloride 96.9 L Carbon Dioxide 32 H BUN Glucose Lactic Acid Calcium 8.3 L NT-Pro-B Natriuret Pep Total Protein Albumin TSH 08/10/17 08/10/17 08/10/17 08:04 08:04 14:50 WBC RBC Hgb Hct MCV MCH MCHC RDW [place] % (Auto) Seg Neutrophils % Seg Neuts % (Manual) Lymphocytes % (Manual) Monocytes % (Manual) Eosinophils % (Manual) Basophils % (Manual) Seg Neutrophils # Man Lymphocytes # (Manual) Monocytes # (Manual) Eosinophils # (Manual) Basophils # (Manual) PT INR D-Dimer Heparin Anti-Xa Level POC ABG pH POC ABG pCO2 65.9 H POC ABG pO2 VBG pH Potassium Chloride Carbon Dioxide 32 H BUN Glucose 115 H Lactic Acid Calcium NT-Pro-B Natriuret Pep Total Protein Albumin TSH 4.900 H 08/11/17 08/11/17 08/11/17 07:12 07:12 07:12 WBC RBC Hgb 10.3 L Hct MCV 76 L MCH 22 L MCHC 29 L RDW 21.4 H [place] % (Auto) 8.8 H Seg Neutrophils % Seg Neuts % (Manual) Lymphocytes % (Manual) Monocytes % (Manual) Eosinophils % (Manual) Basophils % (Manual) Seg Neutrophils # Man Lymphocytes # (Manual) Monocytes # (Manual) Eosinophils # (Manual) Basophils # (Manual) PT INR D-Dimer Heparin Anti-Xa Level POC ABG pH POC ABG pCO2 POC ABG pO2 VBG pH Potassium Chloride Carbon Dioxide 35 H BUN Glucose 105 H Lactic Acid Calcium NT-Pro-B Natriuret Pep Total Protein 5.8 L Albumin 3.1 L TSH 4.780 H 08/12/17 08/12/17 08/13/17 04:31 04:31 11:34 WBC RBC Hgb 10.7 L Hct 35.3 L MCV 76 L MCH 23 L MCHC 30 L RDW 21.3 H [place] % (Auto) Seg Neutrophils % Seg Neuts % (Manual) Lymphocytes % (Manual) Monocytes % (Manual) Eosinophils % (Manual) Basophils % (Manual) Seg Neutrophils # Man Lymphocytes # (Manual) Monocytes # (Manual) Eosinophils # (Manual) Basophils # (Manual) PT INR D-Dimer Heparin Anti-Xa Level POC ABG pH POC ABG pCO2 61.1 H POC ABG pO2 57 L VBG pH Potassium Chloride 95.8 L Carbon Dioxide 33 H BUN Glucose Lactic Acid Calcium NT-Pro-B Natriuret Pep Total Protein 5.8 L Albumin 3.0 L TSH 08/14/17 08/14/17 08/14/17 10:36 10:36 10:36 WBC RBC Hgb 10.7 L Hct MCV MCH MCHC RDW [place] % (Auto) Seg Neutrophils % Seg Neuts % (Manual) Lymphocytes % (Manual) Monocytes % (Manual) Eosinophils % (Manual) Basophils % (Manual) Seg Neutrophils # Man Lymphocytes # (Manual) Monocytes # (Manual) Eosinophils # (Manual) Basophils # (Manual) PT 15.8 H INR 1.20 H D-Dimer Heparin Anti-Xa Level POC ABG pH POC ABG pCO2 POC ABG pO2 VBG pH Potassium Chloride Carbon Dioxide BUN Glucose Lactic Acid Calcium NT-Pro-B Natriuret Pep 6070 H Total Protein Albumin TSH 08/14/17 08/14/17 08/14/17 17:23 20:37 23:18 WBC RBC Hgb Hct MCV MCH MCHC RDW [place] % (Auto) Seg Neutrophils % Seg Neuts % (Manual) Lymphocytes % (Manual) Monocytes % (Manual) Eosinophils % (Manual) Basophils % (Manual) Seg Neutrophils # Man Lymphocytes # (Manual) Monocytes # (Manual) Eosinophils # (Manual) Basophils # (Manual) PT INR D-Dimer Heparin Anti-Xa Level < 0.10 L POC ABG pH 7.566 H 7.494 H POC ABG pCO2 51.6 H POC ABG pO2 45 L 52 L VBG pH Potassium Chloride Carbon Dioxide BUN Glucose Lactic Acid Calcium NT-Pro-B Natriuret Pep Total Protein Albumin [facility] 08/15/17 08/15/17 08/15/17 04:15 04:20 08:26 WBC RBC Hgb Hct MCV MCH MCHC RDW [place] % (Auto) Seg Neutrophils % Seg Neuts % (Manual) Lymphocytes % (Manual) Monocytes % (Manual) Eosinophils % (Manual) Basophils % (Manual) Seg Neutrophils # Man Lymphocytes # (Manual) Monocytes # (Manual) Eosinophils # (Manual) Basophils # (Manual) PT 16.3 H INR 1.24 H D-Dimer Heparin Anti-Xa Level 0.12 L POC ABG pH 7.471 H POC ABG pCO2 53.8 H POC ABG pO2 VBG pH Potassium Chloride Carbon Dioxide BUN Glucose Lactic Acid Calcium NT-Pro-B Natriuret Pep Total Protein Albumin [facility] 08/15/17 08/16/17 08/16/17 22:00 05:25 05:25 WBC RBC Hgb 11.1 L Hct MCV MCH MCHC RDW [place] % (Auto) Seg Neutrophils % Seg Neuts % (Manual) Lymphocytes % (Manual) Monocytes % (Manual) Eosinophils % (Manual) Basophils % (Manual) Seg Neutrophils # Man Lymphocytes # (Manual) Monocytes # (Manual) Eosinophils # (Manual) Basophils # (Manual) PT 20.1 H INR 1.61 H D-Dimer Heparin Anti-Xa Level 0.17 L 0.28 L POC ABG pH POC ABG pCO2 POC ABG pO2 VBG pH Potassium Chloride Carbon Dioxide BUN Glucose Lactic Acid Calcium NT-Pro-B Natriuret Pep Total Protein Albumin [facility] 08/16/17 08/16/17 08/17/17 14:04 14:04 05:58 WBC RBC 5.10 H Hgb 11.2 L Hct MCV 75 L MCH 22 L MCHC 29 L RDW 20.9 H [place] % (Auto) Seg Neutrophils % Seg Neuts % (Manual) Lymphocytes % (Manual) Monocytes % (Manual) Eosinophils % (Manual) Basophils % (Manual) Seg Neutrophils # Man Lymphocytes # (Manual) Monocytes # (Manual) Eosinophils # (Manual) Basophils # (Manual) PT 34.7 H INR 3.20 H D-Dimer Heparin Anti-Xa Level POC ABG pH POC ABG pCO2 POC ABG pO2 VBG pH Potassium 3.5 L Chloride 93.1 L Carbon Dioxide 37 H BUN 27 H Glucose 226 H Lactic Acid Calcium NT-Pro-B Natriuret Pep Total Protein 5.8 L Albumin 3.0 L TSH 08/17/17 08/18/17 08/18/17 21:48 04:00 05:23 WBC RBC Hgb 11.3 L Hct MCV MCH MCHC RDW [place] % (Auto) Seg Neutrophils % Seg Neuts % (Manual) Lymphocytes % (Manual) Monocytes % (Manual) Eosinophils % (Manual) Basophils % (Manual) Seg Neutrophils # Man Lymphocytes # (Manual) Monocytes # (Manual) Eosinophils # (Manual) Basophils # (Manual) PT 24.2 H INR 2.04 H D-Dimer 1693.79 H Heparin Anti-Xa Level POC ABG pH POC ABG pCO2 POC ABG pO2 VBG pH Potassium Chloride Carbon Dioxide BUN Glucose Lactic Acid Calcium NT-Pro-B Natriuret Pep Total Protein Albumin TSH 08/18/17 08/19/17 08/20/17 05:23 04:30 03:00 WBC RBC Hgb 11.7 L Hct MCV MCH MCHC RDW [place] % (Auto) Seg Neutrophils % Seg Neuts % (Manual) Lymphocytes % (Manual) Monocytes % (Manual) Eosinophils % (Manual) Basophils % (Manual) Seg Neutrophils # Man Lymphocytes # (Manual) Monocytes # (Manual) Eosinophils # (Manual) Basophils # (Manual) PT 20.0 H INR 1.60 H D-Dimer Heparin Anti-Xa Level POC ABG pH POC ABG pCO2 POC ABG pO2 VBG pH Potassium Chloride 86.8 L Carbon Dioxide 38 H BUN 33 H Glucose 355 H Lactic Acid Calcium NT-Pro-B Natriuret Pep Total Protein Albumin TSH 08/20/17 08/20/17 03:00 03:00 WBC RBC Hgb Hct MCV MCH MCHC RDW [place] % (Auto) Seg Neutrophils % Seg Neuts % (Manual) Lymphocytes % (Manual) Monocytes % (Manual) Eosinophils % (Manual) Basophils % (Manual) Seg Neutrophils # Man Lymphocytes # (Manual) Monocytes # (Manual) Eosinophils # (Manual) Basophils # (Manual) PT 22.7 H INR 1.87 H D-Dimer Heparin Anti-Xa Level POC ABG pH POC ABG pCO2 POC ABG pO2 VBG pH Potassium Chloride 91.3 L Carbon Dioxide 38 H BUN 34 H Glucose 391 H Lactic Acid Calcium NT-Pro-B Natriuret Pep Total Protein Albumin TSH
[2017-08-20] MEDS ORDERED: DUONEB *Not for PRN Use IH ONE (15:49)
[2017-08-20] MEDS: COUMADIN PO SCH (17:28)
[2017-08-20] MEDS: NOVOLOG SUB-Q SCH ×2 (17:39→22:59)
--- NOTE | 2017-08-20 18:25 | Progress Note ---
Assessment and Plan Assessment and plan: --Acute on chronic hypoxic, hypercapnic respiratory failure continue high flow oxygen, BIPAP prn, continue nebulizers , off steroids , supportive care will need neb, NIV and HHS at home --Acute systolic congestive heart failure ; left ventricular ejection fraction 40-45% with severe pulmonary hypertension Continue diuretics, input output monitoring and supportive care --Status sleep apnea/obesity hypoventilation syndrome/morbid obesity Continue, BiPAP at night, Oxygen, duo nebs, pulmonary following, out patient sleep study --Severe pulmonary hypertension on echocardiogram; diuretics, fluid restriction , --Left lower lobe pneumonia/atelectasis/community-acquired; received full dose of antibiotics --Sepsis; resolved --Lactic acidosis; resolved --Leukocytosis secondary to sepsis and steroids; trending down --Chronic massive lymphedema; supportive care, wound care and lymphedema care as needed --Morbid obesity; BMI of 82; counseling done, patient may benefit from bariatric surgical consultation or weight reduction program when medically stable --Physical therapy occupational therapy as tolerated --Empiric anticoagulation with Coumadin, near therapeutic INR, target INR 2-3 --Patient is stable to be transferred out of ICU to telemetry --Discharge planning. Case management, possible home with home health when patient is stable Plan of care reviewed with the patient and family members at the bedside as well as the nurse Critical care time 32 minutes History Interval history: Patient seen and examined medical records reviewed Patient feels better no new complaints Alert awake oriented 3 Denies chest pain or shortness of breath Denies headache or dizziness Denies nausea or vomiting Vital signs reviewed Family members at the bedside Hospitalist Physical - Constitutional Vitals: Temp Pulse Resp BP Pulse Ox 98.7 F 61 13 111/53 96 08/20/17 12:00 08/20/17 14:26 08/20/17 14:26 08/20/17 14:00 08/20/17 14:00 General appearance: Present: no acute distress, well-nourished, obese (morbidly obese) - EENT Eyes: Present: PERRL, EOM intact - Neck Neck: Present: supple, normal ROM - Respiratory Respiratory effort: normal Respiratory: bilateral: diminished, negative: rales, rhonchi, wheezing - Cardiovascular Rhythm: regular Heart Sounds: Present: S1 & S2 - Extremities Extremities: no ischemia, abnormal (chronic lymphedema) - Abdominal General gastrointestinal: soft, non-tender, non-distended, normal bowel sounds - Integumentary Integumentary: Present: clear, warm - Psychiatric Psychiatric: appropriate mood/affect, cooperative - Neurologic Neurologic: CNII-XII intact, moves all extremities Results - Labs CBC & Chem 7: 08/20/17 03:00 08/20/17 03:00 Labs: Laboratory Last Values WBC 7.6 K/mm3 (4.5-11.0) 08/16/17 14:04 RBC 5.10 M/mm3 (3.65-5.03) H 08/16/17 14:04 Hgb 11.7 gm/dl (11.8-15.2) L 08/20/17 03:00 Hct 40.3 % (35.5-45.6) 08/20/17 03:00 MCV 75 fl (84-94) L 08/16/17 14:04 MCH 22 pg (28-32) L 08/16/17 14:04 MCHC 29 % (32-34) L 08/16/17 14:04 RDW 20.9 % (13.2-15.2) H 08/16/17 14:04 Plt Count 250 K/mm3 (140-440) 08/20/17 03:00 Lymph % (Auto) 18.2 % (13.4-35.0) 08/12/17 04:31 [place] % (Auto) 7.0 % (0.0-7.3) 08/12/17 04:31 Eos % (Auto) 4.0 % (0.0-4.3) 08/12/17 04:31 Baso % (Auto) 0.8 % (0.0-1.8) 08/12/17 04:31 Lymph # 1.5 K/mm3 (1.2-5.4) 08/12/17 04:31 [place] # 0.6 K/mm3 (0.0-0.8) 08/12/17 04:31 Eos # 0.3 K/mm3 (0.0-0.4) 08/12/17 04:31 Baso # 0.1 K/mm3 (0.0-0.1) 08/12/17 04:31 Add Manual Diff Complete 08/09/17 10:57 Total Counted 100 08/09/17 10:57 Seg Neutrophils % 70.0 % (40.0-70.0) 08/12/17 04:31 Seg Neuts % (Manual) 64.0 % (40.0-70.0) 08/09/17 10:57 Band Neutrophils % 4.0 % 08/09/17 10:57 Lymphocytes % (Manual) 15.0 % (13.4-35.0) 08/09/17 10:57 Reactive Lymphs % (Man) 3.0 % 08/09/17 10:57 Monocytes % (Manual) 9.0 % (0.0-7.3) H 08/09/17 10:57 Eosinophils % (Manual) 5.0 % (0.0-4.3) H 08/09/17 10:57 Basophils % (Manual) 0 % (0.0-1.8) 08/09/17 10:57 Metamyelocytes % 0 % 08/09/17 10:57 Myelocytes % 0 % 08/09/17 10:57 Promyelocytes % 0 % 08/09/17 10:57 Blast Cells % 0 % 08/09/17 10:57 Nucleated RBC % Not Reportable 08/09/17 10:57 Seg Neutrophils # 5.9 K/mm3 (1.8-7.7) 08/12/17 04:31 Seg Neutrophils # Man 9.3 K/mm3 (1.8-7.7) H 08/09/17 10:57 Band Neutrophils # 0.6 K/mm3 08/09/17 10:57 Lymphocytes # (Manual) 2.2 K/mm3 (1.2-5.4) 08/09/17 10:57 Abs React Lymphs (Man) 0.4 K/mm3 08/09/17 10:57 Monocytes # (Manual) 1.3 K/mm3 (0.0-0.8) H 08/09/17 10:57 Eosinophils # (Manual) 0.7 K/mm3 (0.0-0.4) H 08/09/17 10:57 Basophils # (Manual) 0.0 K/mm3 (0.0-0.1) 08/09/17 10:57 Metamyelocytes # 0.0 K/mm3 08/09/17 10:57 Myelocytes # 0.0 K/mm3 08/09/17 10:57 Promyelocytes # 0.0 K/mm3 08/09/17 10:57 Blast Cells # 0.0 K/mm3 08/09/17 10:57 WBC Morphology Not Reportable 08/09/17 10:57 Hypersegmented Neuts Not Reportable 08/09/17 10:57 Hyposegmented Neuts Not Reportable 08/09/17 10:57 Hypogranular Neuts Not Reportable 08/09/17 10:57 Smudge Cells Not Reportable 08/09/17 10:57 Toxic Granulation Not Reportable 08/09/17 10:57 Toxic Vacuolation Not Reportable 08/09/17 10:57 Dohle Bodies Not Reportable 08/09/17 10:57 Pelger-Huet Anomaly Not Reportable 08/09/17 10:57 Noa Rods Not Reportable 08/09/17 10:57 Platelet Estimate Consistent w auto 08/09/17 10:57 Clumped Platelets Not Reportable 08/09/17 10:57 Plt Clumps, EDTA Not Reportable 08/09/17 10:57 Large Platelets Not Reportable 08/09/17 10:57 Giant Platelets Few 08/09/17 10:57 Platelet Satelliting Not Reportable 08/09/17 10:57 Plt Morphology Comment Not Reportable 08/09/17 10:57 RBC Morphology Not Reportable 08/09/17 10:57 Dimorphic RBCs Not Reportable 08/09/17 10:57 Polychromasia Not Reportable 08/09/17 10:57 Hypochromasia 1+ 08/09/17 10:57 Poikilocytosis 1+ 08/09/17 10:57 Anisocytosis 1+ 08/09/17 10:57 Microcytosis 1+ 08/09/17 10:57 Macrocytosis Not Reportable 08/09/17 10:57 Spherocytes Not Reportable 08/09/17 10:57 Pappenheimer Bodies Not Reportable 08/09/17 10:57 Sickle Cells Not Reportable 08/09/17 10:57 Target Cells Not Reportable 08/09/17 10:57 Tear Drop Cells Not Reportable 08/09/17 10:57 Ovalocytes Few 08/09/17 10:57 Stomatocytes 1+ 08/09/17 10:57 Helmet Cells Not Reportable 08/09/17 10:57 [place] Bodies Not Reportable 08/09/17 10:57 [place] Rings Not Reportable 08/09/17 10:57 [place] Cells Not Reportable 08/09/17 10:57 Bite Cells Not Reportable 08/09/17 10:57 Crenated Cell Not Reportable 08/09/17 10:57 Elliptocytes Not Reportable 08/09/17 10:57 Acanthocytes (Spur) Not Reportable 08/09/17 10:57 Rouleaux Not Reportable 08/09/17 10:57 Hemoglobin C Crystals Not Reportable 08/09/17 10:57 Schistocytes Not Reportable 08/09/17 10:57 Malaria parasites Not Reportable 08/09/17 10:57 Cuco Bodies Not Reportable 08/09/17 10:57 Hem Pathologist Commnt No 08/09/17 10:57 PT 22.7 Sec. (12.2-14.9) H 08/20/17 03:00 INR 1.87 (0.87-1.13) H 08/20/17 03:00 APTT 29.0 Sec. (24.2-36.6) 08/14/17 10:36 D-Dimer 1693.79 ng/mlDDU (0-234) H 08/17/17 21:48 Heparin Anti-Xa Level 0.43 U.I./ml (0.3-0.7) 08/17/17 05:58 POC ABG pH 7.471 (7.35-7.45) H 08/15/17 04:20 POC ABG pCO2 53.8 (35-45) H 08/15/17 04:20 POC ABG pO2 81 (80-105) 08/15/17 04:20 POC ABG HCO3 39.3 08/15/17 04:20 POC ABG Total CO2 41 08/15/17 04:20 POC ABG O2 Sat 96 08/15/17 04:20 POC ABG Base Excess 16 08/15/17 04:20 VBG pH 7.463 (7.320-7.420) H 08/07/17 16:58 FiO2 100 % 08/15/17 04:20 Sodium 141 mmol/L (137-145) 08/20/17 03:00 Potassium 4.0 mmol/L (3.6-5.0) 08/20/17 03:00 Chloride 91.3 mmol/L (98-107) L 08/20/17 03:00 Carbon Dioxide 38 mmol/L (22-30) H 08/20/17 03:00 Anion Gap 16 mmol/L 08/20/17 03:00 BUN 34 mg/dL (9-20) H 08/20/17 03:00 Creatinine 0.9 mg/dL (0.8-1.5) 08/20/17 03:00 Estimated GFR > 60 ml/min 08/20/17 03:00 BUN/Creatinine Ratio 38 % 08/20/17 03:00 Glucose 391 mg/dL (75-100) H 08/20/17 03:00 Lactic Acid 0.90 mmol/L (0.7-2.0) 08/08/17 06:01 Calcium 9.1 mg/dL (8.4-10.2) 08/20/17 03:00 Magnesium 2.30 mg/dL (1.7-2.3) 08/12/17 04:31 Total Bilirubin 0.70 mg/dL (0.1-1.2) 08/16/17 14:04 Direct Bilirubin 0.2 mg/dL (0-0.2) 08/11/17 07:12 Indirect Bilirubin 0.3 mg/dL 08/11/17 07:12 AST 11 units/L (5-40) 08/16/17 14:04 ALT 10 units/L (7-56) 08/16/17 14:04 Alkaline Phosphatase 68 units/L (35-129) 08/16/17 14:04 NT-Pro-B Natriuret Pep 6070 pg/mL (0-450) H 08/14/17 10:36 Total Protein 5.8 g/dL (6.3-8.2) L 08/16/17 14:04 Albumin 3.0 g/dL (3.9-5) L 08/16/17 14:04 Albumin/Globulin Ratio 1.1 % 08/16/17 14:04 TSH 4.780 mlU/mL (0.270-4.200) H 08/11/17 07:12 Free T4 0.86 ng/dL (0.76-1.46) 08/11/17 07:12
[2017-08-21] MEDS: LASIX IV SCH ×3 (02:37→18:41)
[2017-08-21] MEDS: NOVOLOG SUB-Q SCH ×4 (07:30→21:23)
[2017-08-21 07:43] LABS: INR 2.49 (0.87-1.13)
[2017-08-21] MEDS: K-DUR PO SCH (10:45)
--- NOTE | 2017-08-21 12:34 | Progress Note ---
Assessment and Plan 26 y/o male, morbidly, morbidly obese, admitted with acute respiratory failure, most likely multifactorial. 1. Needs weight loss 2. has sleep study already scheduled, must keep appointment 3. Continue net negative state as renal function and BP will allow, suffers from systolic heart failure and severe pulmonary hypertension. 4. Suggest fluid restriction (patient has about 6 bottles of water and a large gatorade at bedside), 1.5 liters 5. Must have PPV on anytime he is sleeping as his heart rate drops into the 30' s while sleeping 6. Wean FiO2 for sats >88% 7. Still debating the clinical possiblity of essentially life long anticoagulation. Echo was not as helpful as hoped to be. Will discuss again on rounds today as a decision needs to be made. Subjective Date of service: 08/21/17 Principal diagnosis: heart failure, hypercapnic respiratory failure, severe morbid obesity Interval history: No acute events. Stable on HFN at 33 and 70%. No family at bedside. Wants PT today. Objective Vital Signs - 12hr 08/21/17 08/21/17 08/21/17 00:59 01:49 04:23 Temperature 97.4 F L 98.4 F Pulse Rate 67 65 72 Respiratory 22 Rate Blood Pressure 115/63 Blood Pressure 97/58 [Left] O2 Sat by Pulse 99 98 99 Oximetry 08/21/17 08/21/17 08:15 09:30 Temperature 97.9 F Pulse Rate 67 Respiratory 20 Rate Blood Pressure 104/47 Blood Pressure [Left] O2 Sat by Pulse 97 93 Oximetry Constitutional: no acute distress, alert, other (high flow oxygen, 100%) Eyes: non-icteric ENT: oropharynx moist Neck: other (extremely large in circumference) Effort: normal Ascultation: Right: rhonchi ( ), Bilateral: clear, diminished breath sounds, wheezes (mild) Percussion: Bilateral: not dull Cardiovascular: regular rate and rhythm Gastrointestinal: normoactive bowel sounds, soft, non-tender, non-distended, other (obese) Extremities: edema, other (bilateral lymphedema with chronic changes) Neurologic: normal mental status, non-focal exam Psychiatric: mood appropriate CBC and BMP: 08/20/17 03:00 08/20/17 03:00 ABG, PT/INR, D-dimer: ABG POC ABG pH 7.471 (7.35-7.45) H 08/15/17 04:20 POC ABG pCO2 53.8 (35-45) H 08/15/17 04:20 POC ABG pO2 81 (80-105) 08/15/17 04:20 POC ABG HCO3 39.3 08/15/17 04:20 POC ABG Total CO2 41 08/15/17 04:20 POC ABG O2 Sat 96 08/15/17 04:20 PT/INR, D-dimer PT 28.6 Sec. (12.2-14.9) H 08/21/17 06:40 INR 2.49 (0.87-1.13) H 08/21/17 06:40 D-Dimer 1693.79 ng/mlDDU (0-234) H 08/17/17 21:48 Abnormal lab findings: Abnormal Labs 08/07/17 08/07/17 08/07/17 16:58 16:58 16:58 WBC 16.1 H RBC 5.44 H Hgb Hct MCV 74 L MCH 22 L MCHC 29 L RDW 21.7 H [place] % (Auto) Seg Neutrophils % Seg Neuts % (Manual) 87.0 H Lymphocytes % (Manual) 7.0 L Monocytes % (Manual) Eosinophils % (Manual) Basophils % (Manual) 2.0 H Seg Neutrophils # Man 14.0 H Lymphocytes # (Manual) 1.1 L Monocytes # (Manual) Eosinophils # (Manual) Basophils # (Manual) 0.3 H PT 16.2 H INR 1.23 H D-Dimer Heparin Anti-Xa Level POC ABG pH POC ABG pCO2 POC ABG pO2 VBG pH Potassium Chloride 96.2 L Carbon Dioxide 31 H BUN Glucose POC Glucose Lactic Acid Calcium NT-Pro-B Natriuret Pep Total Protein 5.8 L Albumin 3.0 L TSH 08/07/17 08/07/17 08/07/17 16:58 16:58 16:58 WBC RBC Hgb Hct MCV MCH MCHC RDW [place] % (Auto) Seg Neutrophils % Seg Neuts % (Manual) Lymphocytes % (Manual) Monocytes % (Manual) Eosinophils % (Manual) Basophils % (Manual) Seg Neutrophils # Man Lymphocytes # (Manual) Monocytes # (Manual) Eosinophils # (Manual) Basophils # (Manual) PT INR D-Dimer Heparin Anti-Xa Level POC ABG pH POC ABG pCO2 POC ABG pO2 VBG pH 7.463 H Potassium Chloride Carbon Dioxide BUN Glucose POC Glucose Lactic Acid 2.10 H* Calcium NT-Pro-B Natriuret Pep 2205 H Total Protein Albumin TSH 08/09/17 08/09/17 08/10/17 10:57 13:37 08:04 WBC 14.5 H RBC Hgb 10.8 L 10.8 L Hct 35.1 L MCV 74 L 76 L MCH 23 L 23 L MCHC 31 L 30 L RDW 21.2 H 21.0 H [place] % (Auto) Seg Neutrophils % 75.4 H Seg Neuts % (Manual) Lymphocytes % (Manual) Monocytes % (Manual) 9.0 H Eosinophils % (Manual) 5.0 H Basophils % (Manual) Seg Neutrophils # Man 9.3 H Lymphocytes # (Manual) Monocytes # (Manual) 1.3 H Eosinophils # (Manual) 0.7 H Basophils # (Manual) PT INR D-Dimer Heparin Anti-Xa Level POC ABG pH POC ABG pCO2 POC ABG pO2 VBG pH Potassium Chloride 96.9 L Carbon Dioxide 32 H BUN Glucose POC Glucose Lactic Acid Calcium 8.3 L NT-Pro-B Natriuret Pep Total Protein Albumin TSH 08/10/17 08/10/17 08/10/17 08:04 08:04 14:50 WBC RBC Hgb Hct MCV MCH MCHC RDW [place] % (Auto) Seg Neutrophils % Seg Neuts % (Manual) Lymphocytes % (Manual) Monocytes % (Manual) Eosinophils % (Manual) Basophils % (Manual) Seg Neutrophils # Man Lymphocytes # (Manual) Monocytes # (Manual) Eosinophils # (Manual) Basophils # (Manual) PT INR D-Dimer Heparin Anti-Xa Level POC ABG pH POC ABG pCO2 65.9 H POC ABG pO2 VBG pH Potassium Chloride Carbon Dioxide 32 H BUN Glucose 115 H POC Glucose Lactic Acid Calcium NT-Pro-B Natriuret Pep Total Protein Albumin TSH 4.900 H 08/11/17 08/11/17 08/11/17 07:12 07:12 07:12 WBC RBC Hgb 10.3 L Hct MCV 76 L MCH 22 L MCHC 29 L RDW 21.4 H [place] % (Auto) 8.8 H Seg Neutrophils % Seg Neuts % (Manual) Lymphocytes % (Manual) Monocytes % (Manual) Eosinophils % (Manual) Basophils % (Manual) Seg Neutrophils # Man Lymphocytes # (Manual) Monocytes # (Manual) Eosinophils # (Manual) Basophils # (Manual) PT INR D-Dimer Heparin Anti-Xa Level POC ABG pH POC ABG pCO2 POC ABG pO2 VBG pH Potassium Chloride Carbon Dioxide 35 H BUN Glucose 105 H POC Glucose Lactic Acid Calcium NT-Pro-B Natriuret Pep Total Protein 5.8 L Albumin 3.1 L TSH 4.780 H 08/12/17 08/12/17 08/13/17 04:31 04:31 11:34 WBC RBC Hgb 10.7 L Hct 35.3 L MCV 76 L MCH 23 L MCHC 30 L RDW 21.3 H [place] % (Auto) Seg Neutrophils % Seg Neuts % (Manual) Lymphocytes % (Manual) Monocytes % (Manual) Eosinophils % (Manual) Basophils % (Manual) Seg Neutrophils # Man Lymphocytes # (Manual) Monocytes # (Manual) Eosinophils # (Manual) Basophils # (Manual) PT INR D-Dimer Heparin Anti-Xa Level POC ABG pH POC ABG pCO2 61.1 H POC ABG pO2 57 L VBG pH Potassium Chloride 95.8 L Carbon Dioxide 33 H BUN Glucose POC Glucose Lactic Acid Calcium NT-Pro-B Natriuret Pep Total Protein 5.8 L Albumin 3.0 L TSH 08/14/17 08/14/17 08/14/17 10:36 10:36 10:36 WBC RBC Hgb 10.7 L Hct MCV MCH MCHC RDW [place] % (Auto) Seg Neutrophils % Seg Neuts % (Manual) Lymphocytes % (Manual) Monocytes % (Manual) Eosinophils % (Manual) Basophils % (Manual) Seg Neutrophils # Man Lymphocytes # (Manual) Monocytes # (Manual) Eosinophils # (Manual) Basophils # (Manual) PT 15.8 H INR 1.20 H D-Dimer Heparin Anti-Xa Level POC ABG pH POC ABG pCO2 POC ABG pO2 VBG pH Potassium Chloride Carbon Dioxide BUN Glucose POC Glucose Lactic Acid Calcium NT-Pro-B Natriuret Pep 6070 H Total Protein Albumin TSH 08/14/17 08/14/17 08/14/17 17:23 20:37 23:18 WBC RBC Hgb Hct MCV MCH MCHC RDW [place] % (Auto) Seg Neutrophils % Seg Neuts % (Manual) Lymphocytes % (Manual) Monocytes % (Manual) Eosinophils % (Manual) Basophils % (Manual) Seg Neutrophils # Man Lymphocytes # (Manual) Monocytes # (Manual) Eosinophils # (Manual) Basophils # (Manual) PT INR D-Dimer Heparin Anti-Xa Level < 0.10 L POC ABG pH 7.566 H 7.494 H POC ABG pCO2 51.6 H POC ABG pO2 45 L 52 L VBG pH Potassium Chloride Carbon Dioxide BUN Glucose POC Glucose Lactic Acid Calcium NT-Pro-B Natriuret Pep Total Protein Albumin TSH 08/15/17 08/15/17 08/15/17 04:15 04:20 08:26 WBC RBC Hgb Hct MCV MCH MCHC RDW [place] % (Auto) Seg Neutrophils % Seg Neuts % (Manual) Lymphocytes % (Manual) Monocytes % (Manual) Eosinophils % (Manual) Basophils % (Manual) Seg Neutrophils # Man Lymphocytes # (Manual) Monocytes # (Manual) Eosinophils # (Manual) Basophils # (Manual) PT 16.3 H INR 1.24 H D-Dimer Heparin Anti-Xa Level 0.12 L POC ABG pH 7.471 H POC ABG pCO2 53.8 H POC ABG pO2 VBG pH Potassium Chloride Carbon Dioxide BUN Glucose POC Glucose Lactic Acid Calcium NT-Pro-B Natriuret Pep Total Protein Albumin TSH 08/15/17 08/16/17 08/16/17 22:00 05:25 05:25 WBC RBC Hgb 11.1 L Hct MCV MCH MCHC RDW [place] % (Auto) Seg Neutrophils % Seg Neuts % (Manual) Lymphocytes % (Manual) Monocytes % (Manual) Eosinophils % (Manual) Basophils % (Manual) Seg Neutrophils # Man Lymphocytes # (Manual) Monocytes # (Manual) Eosinophils # (Manual) Basophils # (Manual) PT 20.1 H INR 1.61 H D-Dimer Heparin Anti-Xa Level 0.17 L 0.28 L POC ABG pH POC ABG pCO2 POC ABG pO2 VBG pH Potassium Chloride Carbon Dioxide BUN Glucose POC Glucose Lactic Acid Calcium NT-Pro-B Natriuret Pep Total Protein Albumin TSH 08/16/17 08/16/17 08/17/17 14:04 14:04 05:58 WBC RBC 5.10 H Hgb 11.2 L Hct MCV 75 L MCH 22 L MCHC 29 L RDW 20.9 H [place] % (Auto) Seg Neutrophils % Seg Neuts % (Manual) Lymphocytes % (Manual) Monocytes % (Manual) Eosinophils % (Manual) Basophils % (Manual) Seg Neutrophils # Man Lymphocytes # (Manual) Monocytes # (Manual) Eosinophils # (Manual) Basophils # (Manual) PT 34.7 H INR 3.20 H D-Dimer Heparin Anti-Xa Level POC ABG pH POC ABG pCO2 POC ABG pO2 VBG pH Potassium 3.5 L Chloride 93.1 L Carbon Dioxide 37 H BUN 27 H Glucose 226 H POC Glucose Lactic Acid Calcium NT-Pro-B Natriuret Pep Total Protein 5.8 L Albumin 3.0 L TSH 08/17/17 08/18/17 08/18/17 21:48 04:00 05:23 WBC RBC Hgb 11.3 L Hct MCV MCH MCHC RDW [place] % (Auto) Seg Neutrophils % Seg Neuts % (Manual) Lymphocytes % (Manual) Monocytes % (Manual) Eosinophils % (Manual) Basophils % (Manual) Seg Neutrophils # Man Lymphocytes # (Manual) Monocytes # (Manual) Eosinophils # (Manual) Basophils # (Manual) PT 24.2 H INR 2.04 H D-Dimer 1693.79 H Heparin Anti-Xa Level POC ABG pH POC ABG pCO2 POC ABG pO2 VBG pH Potassium Chloride Carbon Dioxide BUN Glucose POC Glucose Lactic Acid Calcium NT-Pro-B Natriuret Pep Total Protein Albumin TSH 08/18/17 08/19/17 08/20/17 05:23 04:30 03:00 WBC RBC Hgb 11.7 L Hct MCV MCH MCHC RDW [place] % (Auto) Seg Neutrophils % Seg Neuts % (Manual) Lymphocytes % (Manual) Monocytes % (Manual) Eosinophils % (Manual) Basophils % (Manual) Seg Neutrophils # Man Lymphocytes # (Manual) Monocytes # (Manual) Eosinophils # (Manual) Basophils # (Manual) PT 20.0 H INR 1.60 H D-Dimer Heparin Anti-Xa Level POC ABG pH POC ABG pCO2 POC ABG pO2 VBG pH Potassium Chloride 86.8 L Carbon Dioxide 38 H BUN 33 H Glucose 355 H POC Glucose Lactic Acid Calcium NT-Pro-B Natriuret Pep Total Protein Albumin TSH 08/20/17 08/20/17 08/20/17 03:00 03:00 17:37 WBC RBC Hgb Hct MCV MCH MCHC RDW [place] % (Auto) Seg Neutrophils % Seg Neuts % (Manual) Lymphocytes % (Manual) Monocytes % (Manual) Eosinophils % (Manual) Basophils % (Manual) Seg Neutrophils # Man Lymphocytes # (Manual) Monocytes # (Manual) Eosinophils # (Manual) Basophils # (Manual) PT 22.7 H INR 1.87 H D-Dimer Heparin Anti-Xa Level POC ABG pH POC ABG pCO2 POC ABG pO2 VBG pH Potassium Chloride 91.3 L Carbon Dioxide 38 H BUN 34 H Glucose 391 H POC Glucose 312 H Lactic Acid Calcium NT-Pro-B Natriuret Pep Total Protein Albumin TSH 08/20/17 08/21/17 08/21/17 22:34 06:40 08:22 WBC RBC Hgb Hct MCV MCH MCHC RDW [place] % (Auto) Seg Neutrophils % Seg Neuts % (Manual) Lymphocytes % (Manual) Monocytes % (Manual) Eosinophils % (Manual) Basophils % (Manual) Seg Neutrophils # Man Lymphocytes # (Manual) Monocytes # (Manual) Eosinophils # (Manual) Basophils # (Manual) PT 28.6 H INR 2.49 H D-Dimer Heparin Anti-Xa Level POC ABG pH POC ABG pCO2 POC ABG pO2 VBG pH Potassium Chloride Carbon Dioxide BUN Glucose POC Glucose 166 H 123 H Lactic Acid Calcium NT-Pro-B Natriuret Pep Total Protein Albumin TSH
[2017-08-21] MEDS: COUMADIN PO SCH (17:08)
--- NOTE | 2017-08-21 21:46 | Progress Note ---
Assessment and Plan Assessment and plan: --Morbid obesity; BMI of 82; counseling done, patient may benefit from bariatric surgical consultation or weight reduction program when medically stable -- obstructive sleep apnea/obesity hypoventilation syndrome/morbid obesity Continue, BiPAP at night, Oxygen, duo nebs, pulmonary following, out patient sleep study --Acute on chronic hypoxic, hypercapnic respiratory failure continue high flow oxygen, BIPAP prn, continue nebulizers , off steroids , supportive care will need neb, NIV and HHS at home --Acute systolic congestive heart failure ; left ventricular ejection fraction 40-45% with severe pulmonary hypertension Continue diuretics, input output monitoring and supportive care --Severe pulmonary hypertension on echocardiogram; diuretics, fluid restriction , --Left lower lobe pneumonia/atelectasis/community-acquired; received full dose of antibiotics --Sepsis; resolved --Lactic acidosis; resolved --Leukocytosis secondary to sepsis and steroids; trending down --Chronic massive lymphedema; supportive care, wound care and lymphedema care as needed --Empiric anticoagulation with Coumadin, near therapeutic INR, target INR 2-3 --Patient is stable to be transferred out of ICU to telemetry --Discharge planning. Case management, possible home with home health when patient is stable --Physical therapy occupational therapy as tolerated Plan of care reviewed with the patient and his nurse as well as the case management History Interval history: Patient seen and examined medical records reviewed Patient feels slightly better, patient is on fluid restriction And is requesting to drink more water Denies chest pain or shortness of breath Vital signs reviewed No new events reported by the nursing staff Hospitalist Physical - Constitutional Vitals: Temp Pulse Resp BP Pulse Ox 97.9 F 75 18 115/51 97 08/21/17 16:58 08/21/17 16:58 08/21/17 16:58 08/21/17 16:58 08/21/17 20:01 General appearance: Present: no acute distress, obese (morbidly obese) - EENT Eyes: Present: PERRL, EOM intact - Neck Neck: Present: supple, normal ROM - Respiratory Respiratory effort: normal Respiratory: bilateral: diminished, negative: rales, rhonchi, wheezing - Cardiovascular Rhythm: regular Heart Sounds: Present: S1 & S2 - Extremities Extremities: no ischemia Extremity abnormal: edema, other (chronic lymphedema) - Abdominal General gastrointestinal: soft, non-tender, non-distended, normal bowel sounds - Integumentary Integumentary: Present: clear, warm - Psychiatric Psychiatric: appropriate mood/affect, cooperative - Neurologic Neurologic: CNII-XII intact, moves all extremities Results - Labs CBC & Chem 7: 08/20/17 03:00 08/20/17 03:00 Labs: Laboratory Last Values WBC 7.6 K/mm3 (4.5-11.0) 08/16/17 14:04 RBC 5.10 M/mm3 (3.65-5.03) H 08/16/17 14:04 Hgb 11.7 gm/dl (11.8-15.2) L 08/20/17 03:00 Hct 40.3 % (35.5-45.6) 08/20/17 03:00 MCV 75 fl (84-94) L 08/16/17 14:04 MCH 22 pg (28-32) L 08/16/17 14:04 MCHC 29 % (32-34) L 08/16/17 14:04 RDW 20.9 % (13.2-15.2) H 08/16/17 14:04 Plt Count 250 K/mm3 (140-440) 08/20/17 03:00 Lymph % (Auto) 18.2 % (13.4-35.0) 08/12/17 04:31 [place] % (Auto) 7.0 % (0.0-7.3) 08/12/17 04:31 Eos % (Auto) 4.0 % (0.0-4.3) 08/12/17 04:31 Baso % (Auto) 0.8 % (0.0-1.8) 08/12/17 04:31 Lymph # 1.5 K/mm3 (1.2-5.4) 08/12/17 04:31 [place] # 0.6 K/mm3 (0.0-0.8) 08/12/17 04:31 Eos # 0.3 K/mm3 (0.0-0.4) 08/12/17 04:31 Baso # 0.1 K/mm3 (0.0-0.1) 08/12/17 04:31 Add Manual Diff Complete 08/09/17 10:57 Total Counted 100 08/09/17 10:57 Seg Neutrophils % 70.0 % (40.0-70.0) 08/12/17 04:31 Seg Neuts % (Manual) 64.0 % (40.0-70.0) 08/09/17 10:57 Band Neutrophils % 4.0 % 08/09/17 10:57 Lymphocytes % (Manual) 15.0 % (13.4-35.0) 08/09/17 10:57 Reactive Lymphs % (Man) 3.0 % 08/09/17 10:57 Monocytes % (Manual) 9.0 % (0.0-7.3) H 08/09/17 10:57 Eosinophils % (Manual) 5.0 % (0.0-4.3) H 08/09/17 10:57 Basophils % (Manual) 0 % (0.0-1.8) 08/09/17 10:57 Metamyelocytes % 0 % 08/09/17 10:57 Myelocytes % 0 % 08/09/17 10:57 Promyelocytes % 0 % 08/09/17 10:57 Blast Cells % 0 % 08/09/17 10:57 Nucleated RBC % Not Reportable 08/09/17 10:57 Seg Neutrophils # 5.9 K/mm3 (1.8-7.7) 08/12/17 04:31 Seg Neutrophils # Man 9.3 K/mm3 (1.8-7.7) H 08/09/17 10:57 Band Neutrophils # 0.6 K/mm3 08/09/17 10:57 Lymphocytes # (Manual) 2.2 K/mm3 (1.2-5.4) 08/09/17 10:57 Abs React Lymphs (Man) 0.4 K/mm3 08/09/17 10:57 Monocytes # (Manual) 1.3 K/mm3 (0.0-0.8) H 08/09/17 10:57 Eosinophils # (Manual) 0.7 K/mm3 (0.0-0.4) H 08/09/17 10:57 Basophils # (Manual) 0.0 K/mm3 (0.0-0.1) 08/09/17 10:57 Metamyelocytes # 0.0 K/mm3 08/09/17 10:57 Myelocytes # 0.0 K/mm3 08/09/17 10:57 Promyelocytes # 0.0 K/mm3 08/09/17 10:57 Blast Cells # 0.0 K/mm3 08/09/17 10:57 WBC Morphology Not Reportable 08/09/17 10:57 Hypersegmented Neuts Not Reportable 08/09/17 10:57 Hyposegmented Neuts Not Reportable 08/09/17 10:57 Hypogranular Neuts Not Reportable 08/09/17 10:57 Smudge Cells Not Reportable 08/09/17 10:57 Toxic Granulation Not Reportable 08/09/17 10:57 Toxic Vacuolation Not Reportable 08/09/17 10:57 Dohle Bodies Not Reportable 08/09/17 10:57 Pelger-Huet Anomaly Not Reportable 08/09/17 10:57 Noa Rods Not Reportable 08/09/17 10:57 Platelet Estimate Consistent w auto 08/09/17 10:57 Clumped Platelets Not Reportable 08/09/17 10:57 Plt Clumps, EDTA Not Reportable 08/09/17 10:57 Large Platelets Not Reportable 08/09/17 10:57 Giant Platelets Few 08/09/17 10:57 Platelet Satelliting Not Reportable 08/09/17 10:57 Plt Morphology Comment Not Reportable 08/09/17 10:57 RBC Morphology Not Reportable 08/09/17 10:57 Dimorphic RBCs Not Reportable 08/09/17 10:57 Polychromasia Not Reportable 08/09/17 10:57 Hypochromasia 1+ 08/09/17 10:57 Poikilocytosis 1+ 08/09/17 10:57 Anisocytosis 1+ 08/09/17 10:57 Microcytosis 1+ 08/09/17 10:57 Macrocytosis Not Reportable 08/09/17 10:57 Spherocytes Not Reportable 08/09/17 10:57 Pappenheimer Bodies Not Reportable 08/09/17 10:57 Sickle Cells Not Reportable 08/09/17 10:57 Target Cells Not Reportable 08/09/17 10:57 Tear Drop Cells Not Reportable 08/09/17 10:57 Ovalocytes Few 08/09/17 10:57 Stomatocytes 1+ 08/09/17 10:57 Helmet Cells Not Reportable 08/09/17 10:57 [place] Bodies Not Reportable 08/09/17 10:57 [place] Rings Not Reportable 08/09/17 10:57 Axis Cells Not Reportable 08/09/17 10:57 Bite Cells Not Reportable 08/09/17 10:57 Crenated Cell Not Reportable 08/09/17 10:57 Elliptocytes Not Reportable 08/09/17 10:57 Acanthocytes (Spur) Not Reportable 08/09/17 10:57 Rouleaux Not Reportable 08/09/17 10:57 Hemoglobin C Crystals Not Reportable 08/09/17 10:57 Schistocytes Not Reportable 08/09/17 10:57 Malaria parasites Not Reportable 08/09/17 10:57 Cuco Bodies Not Reportable 08/09/17 10:57 Hem Pathologist Commnt No 08/09/17 10:57 PT 28.6 Sec. (12.2-14.9) H 08/21/17 06:40 INR 2.49 (0.87-1.13) H 08/21/17 06:40 APTT 29.0 Sec. (24.2-36.6) 08/14/17 10:36 D-Dimer 1693.79 ng/mlDDU (0-234) H 08/17/17 21:48 Heparin Anti-Xa Level 0.43 U.I./ml (0.3-0.7) 08/17/17 05:58 POC ABG pH 7.471 (7.35-7.45) H 08/15/17 04:20 POC ABG pCO2 53.8 (35-45) H 08/15/17 04:20 POC ABG pO2 81 (80-105) 08/15/17 04:20 POC ABG HCO3 39.3 08/15/17 04:20 POC ABG Total CO2 41 08/15/17 04:20 POC ABG O2 Sat 96 08/15/17 04:20 POC ABG Base Excess 16 08/15/17 04:20 VBG pH 7.463 (7.320-7.420) H 08/07/17 16:58 FiO2 100 % 08/15/17 04:20 Sodium 141 mmol/L (137-145) 08/20/17 03:00 Potassium 4.0 mmol/L (3.6-5.0) 08/20/17 03:00 Chloride 91.3 mmol/L (98-107) L 08/20/17 03:00 Carbon Dioxide 38 mmol/L (22-30) H 08/20/17 03:00 Anion Gap 16 mmol/L 08/20/17 03:00 BUN 34 mg/dL (9-20) H 08/20/17 03:00 Creatinine 0.9 mg/dL (0.8-1.5) 08/20/17 03:00 Estimated GFR > 60 ml/min 08/20/17 03:00 BUN/Creatinine Ratio 38 % 08/20/17 03:00 Glucose 391 mg/dL (75-100) H 08/20/17 03:00 POC Glucose 182 (70-105) H 08/21/17 12:29 Lactic Acid 0.90 mmol/L (0.7-2.0) 08/08/17 06:01 Calcium 9.1 mg/dL (8.4-10.2) 08/20/17 03:00 Magnesium 2.30 mg/dL (1.7-2.3) 08/12/17 04:31 Total Bilirubin 0.70 mg/dL (0.1-1.2) 08/16/17 14:04 Direct Bilirubin 0.2 mg/dL (0-0.2) 08/11/17 07:12 Indirect Bilirubin 0.3 mg/dL 08/11/17 07:12 AST 11 units/L (5-40) 08/16/17 14:04 ALT 10 units/L (7-56) 08/16/17 14:04 Alkaline Phosphatase 68 units/L (35-129) 08/16/17 14:04 NT-Pro-B Natriuret Pep 6070 pg/mL (0-450) H 08/14/17 10:36 Total Protein 5.8 g/dL (6.3-8.2) L 08/16/17 14:04 Albumin 3.0 g/dL (3.9-5) L 08/16/17 14:04 Albumin/Globulin Ratio 1.1 % 08/16/17 14:04 TSH 4.780 mlU/mL (0.270-4.200) H 08/11/17 07:12 Free T4 0.86 ng/dL (0.76-1.46) 08/11/17 07:12
[2017-08-22] MEDS: LASIX IV SCH ×3 (01:35→18:51)
[2017-08-22 06:45] LABS: Hematocrit 40.4 % (35.5-45.6); Hemoglobin 12.2 gm/dl (11.8-15.2)
[2017-08-22 07:02] LABS: INR 2.38 (0.87-1.13)
[2017-08-22 07:16] LABS: BUN/Creatinine Ratio 33; Blood Urea Nitrogen 30 mg/dL (9-20); Calcium 9.1 mg/dL (8.4-10.2); Hemolysis Index 4
[2017-08-22] MEDS: K-DUR PO SCH (09:51)
[2017-08-22] MEDS: NOVOLOG SUB-Q SCH ×3 (11:28→18:50)
--- NOTE | 2017-08-22 11:51 | Progress Note ---
Assessment and Plan 26 y/o male, morbidly, morbidly obese, admitted with acute respiratory failure, most likely multifactorial. No new recs today 1. Needs weight loss 2. has sleep study already scheduled, must keep appointment 3. Continue net negative state as renal function and BP will allow, suffers from systolic heart failure and severe pulmonary hypertension. 4. Suggest fluid restriction (patient has about 6 bottles of water and a large gatorade at bedside), 1.5 liters 5. Must have PPV on anytime he is sleeping as his heart rate drops into the 30' s while sleeping 6. Wean FiO2 for sats >88% 7. Still debating the clinical possiblity of essentially life long anticoagulation. Echo was not as helpful as hoped to be. Will discuss again on rounds today as a decision needs to be made. Subjective Date of service: 08/22/17 Principal diagnosis: heart failure, hypercapnic respiratory failure, severe morbid obesity Interval history: Working with PT now. Remains on HFNC Objective Vital Signs - 12hr 08/21/17 08/22/17 08/22/17 23:57 04:09 08:43 Temperature 98.4 F 98.5 F Pulse Rate 71 76 Respiratory 18 18 Rate Blood Pressure 126/60 130/55 O2 Sat by Pulse 97 97 100 Oximetry 08/22/17 08:46 Temperature Pulse Rate Respiratory Rate Blood Pressure O2 Sat by Pulse 97 Oximetry Constitutional: no acute distress, alert, other (high flow oxygen, 100%) Eyes: non-icteric ENT: oropharynx moist Neck: other (extremely large in circumference) Effort: normal Ascultation: Right: rhonchi ( ), Bilateral: clear, diminished breath sounds, wheezes (mild) Percussion: Bilateral: not dull Cardiovascular: regular rate and rhythm Gastrointestinal: normoactive bowel sounds, soft, non-tender, non-distended, other (obese) Extremities: edema, other (bilateral lymphedema with chronic changes) Neurologic: normal mental status, non-focal exam Psychiatric: mood appropriate CBC and BMP: 08/22/17 04:00 08/22/17 04:00 ABG, PT/INR, D-dimer: ABG POC ABG pH 7.471 (7.35-7.45) H 08/15/17 04:20 POC ABG pCO2 53.8 (35-45) H 08/15/17 04:20 POC ABG pO2 81 (80-105) 08/15/17 04:20 POC ABG HCO3 39.3 08/15/17 04:20 POC ABG Total CO2 41 08/15/17 04:20 POC ABG O2 Sat 96 08/15/17 04:20 PT/INR, D-dimer PT 27.6 Sec. (12.2-14.9) H 08/22/17 05:00 INR 2.38 (0.87-1.13) H 08/22/17 05:00 D-Dimer 1693.79 ng/mlDDU (0-234) H 08/17/17 21:48 Abnormal lab findings: Abnormal Labs 08/07/17 08/07/17 08/07/17 16:58 16:58 16:58 WBC 16.1 H RBC 5.44 H Hgb Hct MCV 74 L MCH 22 L MCHC 29 L RDW 21.7 H [place] % (Auto) Seg Neutrophils % Seg Neuts % (Manual) 87.0 H Lymphocytes % (Manual) 7.0 L Monocytes % (Manual) Eosinophils % (Manual) Basophils % (Manual) 2.0 H Seg Neutrophils # Man 14.0 H Lymphocytes # (Manual) 1.1 L Monocytes # (Manual) Eosinophils # (Manual) Basophils # (Manual) 0.3 H PT 16.2 H INR 1.23 H D-Dimer Heparin Anti-Xa Level POC ABG pH POC ABG pCO2 POC ABG pO2 VBG pH Potassium Chloride 96.2 L Carbon Dioxide 31 H BUN Glucose POC Glucose Lactic Acid Calcium Magnesium NT-Pro-B Natriuret Pep Total Protein 5.8 L Albumin 3.0 L TSH 08/07/17 08/07/17 08/07/17 16:58 16:58 16:58 WBC RBC Hgb Hct MCV MCH MCHC RDW [place] % (Auto) Seg Neutrophils % Seg Neuts % (Manual) Lymphocytes % (Manual) Monocytes % (Manual) Eosinophils % (Manual) Basophils % (Manual) Seg Neutrophils # Man Lymphocytes # (Manual) Monocytes # (Manual) Eosinophils # (Manual) Basophils # (Manual) PT INR D-Dimer Heparin Anti-Xa Level POC ABG pH POC ABG pCO2 POC ABG pO2 VBG pH 7.463 H Potassium Chloride Carbon Dioxide BUN Glucose POC Glucose Lactic Acid 2.10 H* Calcium Magnesium NT-Pro-B Natriuret Pep 2205 H Total Protein Albumin TSH 08/09/17 08/09/17 08/10/17 10:57 13:37 08:04 WBC 14.5 H RBC Hgb 10.8 L 10.8 L Hct 35.1 L MCV 74 L 76 L MCH 23 L 23 L MCHC 31 L 30 L RDW 21.2 H 21.0 H [place] % (Auto) Seg Neutrophils % 75.4 H Seg Neuts % (Manual) Lymphocytes % (Manual) Monocytes % (Manual) 9.0 H Eosinophils % (Manual) 5.0 H Basophils % (Manual) Seg Neutrophils # Man 9.3 H Lymphocytes # (Manual) Monocytes # (Manual) 1.3 H Eosinophils # (Manual) 0.7 H Basophils # (Manual) PT INR D-Dimer Heparin Anti-Xa Level POC ABG pH POC ABG pCO2 POC ABG pO2 VBG pH Potassium Chloride 96.9 L Carbon Dioxide 32 H BUN Glucose POC Glucose Lactic Acid Calcium 8.3 L Magnesium NT-Pro-B Natriuret Pep Total Protein Albumin TSH 08/10/17 08/10/17 08/10/17 08:04 08:04 14:50 WBC RBC Hgb Hct MCV MCH MCHC RDW [place] % (Auto) Seg Neutrophils % Seg Neuts % (Manual) Lymphocytes % (Manual) Monocytes % (Manual) Eosinophils % (Manual) Basophils % (Manual) Seg Neutrophils # Man Lymphocytes # (Manual) Monocytes # (Manual) Eosinophils # (Manual) Basophils # (Manual) PT INR D-Dimer Heparin Anti-Xa Level POC ABG pH POC ABG pCO2 65.9 H POC ABG pO2 VBG pH Potassium Chloride Carbon Dioxide 32 H BUN Glucose 115 H POC Glucose Lactic Acid Calcium Magnesium NT-Pro-B Natriuret Pep Total Protein Albumin TSH 4.900 H 08/11/17 08/11/17 08/11/17 07:12 07:12 07:12 WBC RBC Hgb 10.3 L Hct MCV 76 L MCH 22 L MCHC 29 L RDW 21.4 H [place] % (Auto) 8.8 H Seg Neutrophils % Seg Neuts % (Manual) Lymphocytes % (Manual) Monocytes % (Manual) Eosinophils % (Manual) Basophils % (Manual) Seg Neutrophils # Man Lymphocytes # (Manual) Monocytes # (Manual) Eosinophils # (Manual) Basophils # (Manual) PT INR D-Dimer Heparin Anti-Xa Level POC ABG pH POC ABG pCO2 POC ABG pO2 VBG pH Potassium Chloride Carbon Dioxide 35 H BUN Glucose 105 H POC Glucose Lactic Acid Calcium Magnesium NT-Pro-B Natriuret Pep Total Protein 5.8 L Albumin 3.1 L TSH 4.780 H 08/12/17 08/12/17 08/13/17 04:31 04:31 11:34 WBC RBC Hgb 10.7 L Hct 35.3 L MCV 76 L MCH 23 L MCHC 30 L RDW 21.3 H [place] % (Auto) Seg Neutrophils % Seg Neuts % (Manual) Lymphocytes % (Manual) Monocytes % (Manual) Eosinophils % (Manual) Basophils % (Manual) Seg Neutrophils # Man Lymphocytes # (Manual) Monocytes # (Manual) Eosinophils # (Manual) Basophils # (Manual) PT INR D-Dimer Heparin Anti-Xa Level POC ABG pH POC ABG pCO2 61.1 H POC ABG pO2 57 L VBG pH Potassium Chloride 95.8 L Carbon Dioxide 33 H BUN Glucose POC Glucose Lactic Acid Calcium Magnesium NT-Pro-B Natriuret Pep Total Protein 5.8 L Albumin 3.0 L TSH 08/14/17 08/14/17 08/14/17 10:36 10:36 10:36 WBC RBC Hgb 10.7 L Hct MCV MCH MCHC RDW [place] % (Auto) Seg Neutrophils % Seg Neuts % (Manual) Lymphocytes % (Manual) Monocytes % (Manual) Eosinophils % (Manual) Basophils % (Manual) Seg Neutrophils # Man Lymphocytes # (Manual) Monocytes # (Manual) Eosinophils # (Manual) Basophils # (Manual) PT 15.8 H INR 1.20 H D-Dimer Heparin Anti-Xa Level POC ABG pH POC ABG pCO2 POC ABG pO2 VBG pH Potassium Chloride Carbon Dioxide BUN Glucose POC Glucose Lactic Acid Calcium Magnesium NT-Pro-B Natriuret Pep 6070 H Total Protein Albumin TSH 08/14/17 08/14/17 08/14/17 17:23 20:37 23:18 WBC RBC Hgb Hct MCV MCH MCHC RDW [place] % (Auto) Seg Neutrophils % Seg Neuts % (Manual) Lymphocytes % (Manual) Monocytes % (Manual) Eosinophils % (Manual) Basophils % (Manual) Seg Neutrophils # Man Lymphocytes # (Manual) Monocytes # (Manual) Eosinophils # (Manual) Basophils # (Manual) PT INR D-Dimer Heparin Anti-Xa Level < 0.10 L POC ABG pH 7.566 H 7.494 H POC ABG pCO2 51.6 H POC ABG pO2 45 L 52 L VBG pH Potassium Chloride Carbon Dioxide BUN Glucose POC Glucose Lactic Acid Calcium Magnesium NT-Pro-B Natriuret Pep Total Protein Albumin [facility] 08/15/17 08/15/17 08/15/17 04:15 04:20 08:26 WBC RBC Hgb Hct MCV MCH MCHC RDW [place] % (Auto) Seg Neutrophils % Seg Neuts % (Manual) Lymphocytes % (Manual) Monocytes % (Manual) Eosinophils % (Manual) Basophils % (Manual) Seg Neutrophils # Man Lymphocytes # (Manual) Monocytes # (Manual) Eosinophils # (Manual) Basophils # (Manual) PT 16.3 H INR 1.24 H D-Dimer Heparin Anti-Xa Level 0.12 L POC ABG pH 7.471 H POC ABG pCO2 53.8 H POC ABG pO2 VBG pH Potassium Chloride Carbon Dioxide BUN Glucose POC Glucose Lactic Acid Calcium Magnesium NT-Pro-B Natriuret Pep Total Protein Albumin TSH 08/15/17 08/16/17 08/16/17 22:00 05:25 05:25 WBC RBC Hgb 11.1 L Hct MCV MCH MCHC RDW [place] % (Auto) Seg Neutrophils % Seg Neuts % (Manual) Lymphocytes % (Manual) Monocytes % (Manual) Eosinophils % (Manual) Basophils % (Manual) Seg Neutrophils # Man Lymphocytes # (Manual) Monocytes # (Manual) Eosinophils # (Manual) Basophils # (Manual) PT 20.1 H INR 1.61 H D-Dimer Heparin Anti-Xa Level 0.17 L 0.28 L POC ABG pH POC ABG pCO2 POC ABG pO2 VBG pH Potassium Chloride Carbon Dioxide BUN Glucose POC Glucose Lactic Acid Calcium Magnesium NT-Pro-B Natriuret Pep Total Protein Albumin [facility] 08/16/17 08/16/17 08/17/17 14:04 14:04 05:58 WBC RBC 5.10 H Hgb 11.2 L Hct MCV 75 L MCH 22 L MCHC 29 L RDW 20.9 H [place] % (Auto) Seg Neutrophils % Seg Neuts % (Manual) Lymphocytes % (Manual) Monocytes % (Manual) Eosinophils % (Manual) Basophils % (Manual) Seg Neutrophils # Man Lymphocytes # (Manual) Monocytes # (Manual) Eosinophils # (Manual) Basophils # (Manual) PT 34.7 H INR 3.20 H D-Dimer Heparin Anti-Xa Level POC ABG pH POC ABG pCO2 POC ABG pO2 VBG pH Potassium 3.5 L Chloride 93.1 L Carbon Dioxide 37 H BUN 27 H Glucose 226 H POC Glucose Lactic Acid Calcium Magnesium NT-Pro-B Natriuret Pep Total Protein 5.8 L Albumin 3.0 L TSH 08/17/17 08/18/17 08/18/17 21:48 04:00 05:23 WBC RBC Hgb 11.3 L Hct MCV MCH MCHC RDW [place] % (Auto) Seg Neutrophils % Seg Neuts % (Manual) Lymphocytes % (Manual) Monocytes % (Manual) Eosinophils % (Manual) Basophils % (Manual) Seg Neutrophils # Man Lymphocytes # (Manual) Monocytes # (Manual) Eosinophils # (Manual) Basophils # (Manual) PT 24.2 H INR 2.04 H D-Dimer 1693.79 H Heparin Anti-Xa Level POC ABG pH POC ABG pCO2 POC ABG pO2 VBG pH Potassium Chloride Carbon Dioxide BUN Glucose POC Glucose Lactic Acid Calcium Magnesium NT-Pro-B Natriuret Pep Total Protein Albumin TSH 08/18/17 08/19/17 08/20/17 05:23 04:30 03:00 WBC RBC Hgb 11.7 L Hct MCV MCH MCHC RDW [place] % (Auto) Seg Neutrophils % Seg Neuts % (Manual) Lymphocytes % (Manual) Monocytes % (Manual) Eosinophils % (Manual) Basophils % (Manual) Seg Neutrophils # Man Lymphocytes # (Manual) Monocytes # (Manual) Eosinophils # (Manual) Basophils # (Manual) PT 20.0 H INR 1.60 H D-Dimer Heparin Anti-Xa Level POC ABG pH POC ABG pCO2 POC ABG pO2 VBG pH Potassium Chloride 86.8 L Carbon Dioxide 38 H BUN 33 H Glucose 355 H POC Glucose Lactic Acid Calcium Magnesium NT-Pro-B Natriuret Pep Total Protein Albumin TSH 08/20/17 08/20/17 08/20/17 03:00 03:00 17:37 WBC RBC Hgb Hct MCV MCH MCHC RDW [place] % (Auto) Seg Neutrophils % Seg Neuts % (Manual) Lymphocytes % (Manual) Monocytes % (Manual) Eosinophils % (Manual) Basophils % (Manual) Seg Neutrophils # Man Lymphocytes # (Manual) Monocytes # (Manual) Eosinophils # (Manual) Basophils # (Manual) PT 22.7 H INR 1.87 H D-Dimer Heparin Anti-Xa Level POC ABG pH POC ABG pCO2 POC ABG pO2 VBG pH Potassium Chloride 91.3 L Carbon Dioxide 38 H BUN 34 H Glucose 391 H POC Glucose 312 H Lactic Acid Calcium Magnesium NT-Pro-B Natriuret Pep Total Protein Albumin TSH 08/20/17 08/21/17 08/21/17 22:34 06:40 08:22 WBC RBC Hgb Hct MCV MCH MCHC RDW [place] % (Auto) Seg Neutrophils % Seg Neuts % (Manual) Lymphocytes % (Manual) Monocytes % (Manual) Eosinophils % (Manual) Basophils % (Manual) Seg Neutrophils # Man Lymphocytes # (Manual) Monocytes # (Manual) Eosinophils # (Manual) Basophils # (Manual) PT 28.6 H INR 2.49 H D-Dimer Heparin Anti-Xa Level POC ABG pH POC ABG pCO2 POC ABG pO2 VBG pH Potassium Chloride Carbon Dioxide BUN Glucose POC Glucose 166 H 123 H Lactic Acid Calcium Magnesium NT-Pro-B Natriuret Pep Total Protein Albumin TSH 08/21/17 08/21/17 08/21/17 12:29 17:08 21:17 WBC RBC Hgb Hct MCV MCH MCHC RDW [place] % (Auto) Seg Neutrophils % Seg Neuts % (Manual) Lymphocytes % (Manual) Monocytes % (Manual) Eosinophils % (Manual) Basophils % (Manual) Seg Neutrophils # Man Lymphocytes # (Manual) Monocytes # (Manual) Eosinophils # (Manual) Basophils # (Manual) PT INR D-Dimer Heparin Anti-Xa Level POC ABG pH POC ABG pCO2 POC ABG pO2 VBG pH Potassium Chloride Carbon Dioxide BUN Glucose POC Glucose 182 H 135 H 145 H Lactic Acid Calcium Magnesium NT-Pro-B Natriuret Pep Total Protein Albumin TSH 08/22/17 08/22/17 04:00 05:00 WBC RBC Hgb Hct MCV MCH MCHC RDW [place] % (Auto) Seg Neutrophils % Seg Neuts % (Manual) Lymphocytes % (Manual) Monocytes % (Manual) Eosinophils % (Manual) Basophils % (Manual) Seg Neutrophils # Man Lymphocytes # (Manual) Monocytes # (Manual) Eosinophils # (Manual) Basophils # (Manual) PT 27.6 H INR 2.38 H D-Dimer Heparin Anti-Xa Level POC ABG pH POC ABG pCO2 POC ABG pO2 VBG pH Potassium Chloride 90.8 L Carbon Dioxide 40 H BUN 30 H Glucose 149 H POC Glucose Lactic Acid Calcium Magnesium 2.40 H NT-Pro-B Natriuret Pep Total Protein Albumin TSH
[2017-08-22] MEDS: COUMADIN PO SCH (18:50)
--- NOTE | 2017-08-22 21:02 | Progress Note ---
Assessment and Plan Assessment and plan: --Morbid obesity; BMI of 82; counseling done, patient may benefit from bariatric surgical consultation or weight reduction program when medically stable -- obstructive sleep apnea/obesity hypoventilation syndrome/morbid obesity Continue, BiPAP at night, Oxygen, duo nebs, pulmonary following, out patient sleep study --Acute on chronic hypoxic, hypercapnic respiratory failure continue high flow oxygen, BIPAP prn, continue nebulizers , off steroids , supportive care will need neb, NIV and HHS at home --Acute systolic congestive heart failure ; left ventricular ejection fraction 40-45% with severe pulmonary hypertension Continue diuretics, input output monitoring and supportive care --Severe pulmonary hypertension on echocardiogram; diuretics, fluid restriction , --Left lower lobe pneumonia/atelectasis/community-acquired; received full dose of antibiotics --Sepsis; resolved --Lactic acidosis; resolved --Leukocytosis secondary to sepsis and steroids; trending down --Chronic massive lymphedema; supportive care, wound care and lymphedema care as needed --Empiric anticoagulation with Coumadin, near therapeutic INR, target INR 2-3 --Patient is stable to be transferred out of ICU to telemetry --Discharge planning. Case management, possible home with home health when patient is stable --Physical therapy occupational therapy as tolerated Plan of care reviewed with the patient and his nurse as well as the case management History Interval history: Patient feels better Wants to to go home Denies chest pain or shortness of breath Vital signs reviewed Hospitalist Physical - Constitutional Vitals: Temp Pulse Resp BP Pulse Ox 97.9 F 82 20 116/61 99 08/22/17 16:34 08/22/17 16:34 08/22/17 16:34 08/22/17 16:34 08/22/17 20:36 General appearance: Present: no acute distress, obese (morbidly obese) - EENT Eyes: Present: PERRL, EOM intact - Neck Neck: Present: supple, normal ROM - Respiratory Respiratory effort: normal Respiratory: bilateral: diminished, negative: rales, rhonchi, wheezing - Cardiovascular Rhythm: regular Heart Sounds: Present: S1 & S2 - Extremities Extremities: abnormal (massive lymphedema) Extremity abnormal: edema - Abdominal General gastrointestinal: soft, non-tender, non-distended, normal bowel sounds - Integumentary Integumentary: Present: clear, warm - Psychiatric Psychiatric: appropriate mood/affect, cooperative - Neurologic Neurologic: moves all extremities Results - Labs CBC & Chem 7: 08/22/17 04:00 08/22/17 04:00 Labs: Laboratory Last Values WBC 7.6 K/mm3 (4.5-11.0) 08/16/17 14:04 RBC 5.10 M/mm3 (3.65-5.03) H 08/16/17 14:04 Hgb 12.2 gm/dl (11.8-15.2) 08/22/17 04:00 Hct 40.4 % (35.5-45.6) 08/22/17 04:00 MCV 75 fl (84-94) L 08/16/17 14:04 MCH 22 pg (28-32) L 08/16/17 14:04 MCHC 29 % (32-34) L 08/16/17 14:04 RDW 20.9 % (13.2-15.2) H 08/16/17 14:04 Plt Count 179 K/mm3 (140-440) 08/22/17 04:00 Lymph % (Auto) 18.2 % (13.4-35.0) 08/12/17 04:31 [place] % (Auto) 7.0 % (0.0-7.3) 08/12/17 04:31 Eos % (Auto) 4.0 % (0.0-4.3) 08/12/17 04:31 Baso % (Auto) 0.8 % (0.0-1.8) 08/12/17 04:31 Lymph # 1.5 K/mm3 (1.2-5.4) 08/12/17 04:31 [place] # 0.6 K/mm3 (0.0-0.8) 08/12/17 04:31 Eos # 0.3 K/mm3 (0.0-0.4) 08/12/17 04:31 Baso # 0.1 K/mm3 (0.0-0.1) 08/12/17 04:31 Add Manual Diff Complete 08/09/17 10:57 Total Counted 100 08/09/17 10:57 Seg Neutrophils % 70.0 % (40.0-70.0) 08/12/17 04:31 Seg Neuts % (Manual) 64.0 % (40.0-70.0) 08/09/17 10:57 Band Neutrophils % 4.0 % 08/09/17 10:57 Lymphocytes % (Manual) 15.0 % (13.4-35.0) 08/09/17 10:57 Reactive Lymphs % (Man) 3.0 % 08/09/17 10:57 Monocytes % (Manual) 9.0 % (0.0-7.3) H 08/09/17 10:57 Eosinophils % (Manual) 5.0 % (0.0-4.3) H 08/09/17 10:57 Basophils % (Manual) 0 % (0.0-1.8) 08/09/17 10:57 Metamyelocytes % 0 % 08/09/17 10:57 Myelocytes % 0 % 08/09/17 10:57 Promyelocytes % 0 % 08/09/17 10:57 Blast Cells % 0 % 08/09/17 10:57 Nucleated RBC % Not Reportable 08/09/17 10:57 Seg Neutrophils # 5.9 K/mm3 (1.8-7.7) 08/12/17 04:31 Seg Neutrophils # Man 9.3 K/mm3 (1.8-7.7) H 08/09/17 10:57 Band Neutrophils # 0.6 K/mm3 08/09/17 10:57 Lymphocytes # (Manual) 2.2 K/mm3 (1.2-5.4) 08/09/17 10:57 Abs React Lymphs (Man) 0.4 K/mm3 08/09/17 10:57 Monocytes # (Manual) 1.3 K/mm3 (0.0-0.8) H 08/09/17 10:57 Eosinophils # (Manual) 0.7 K/mm3 (0.0-0.4) H 08/09/17 10:57 Basophils # (Manual) 0.0 K/mm3 (0.0-0.1) 08/09/17 10:57 Metamyelocytes # 0.0 K/mm3 08/09/17 10:57 Myelocytes # 0.0 K/mm3 08/09/17 10:57 Promyelocytes # 0.0 K/mm3 08/09/17 10:57 Blast Cells # 0.0 K/mm3 08/09/17 10:57 WBC Morphology Not Reportable 08/09/17 10:57 Hypersegmented Neuts Not Reportable 08/09/17 10:57 Hyposegmented Neuts Not Reportable 08/09/17 10:57 Hypogranular Neuts Not Reportable 08/09/17 10:57 Smudge Cells Not Reportable 08/09/17 10:57 Toxic Granulation Not Reportable 08/09/17 10:57 Toxic Vacuolation Not Reportable 08/09/17 10:57 Dohle Bodies Not Reportable 08/09/17 10:57 Pelger-Huet Anomaly Not Reportable 08/09/17 10:57 Noa Rods Not Reportable 08/09/17 10:57 Platelet Estimate Consistent w auto 08/09/17 10:57 Clumped Platelets Not Reportable 08/09/17 10:57 Plt Clumps, EDTA Not Reportable 08/09/17 10:57 Large Platelets Not Reportable 08/09/17 10:57 Giant Platelets Few 08/09/17 10:57 Platelet Satelliting Not Reportable 08/09/17 10:57 Plt Morphology Comment Not Reportable 08/09/17 10:57 RBC Morphology Not Reportable 08/09/17 10:57 Dimorphic RBCs Not Reportable 08/09/17 10:57 Polychromasia Not Reportable 08/09/17 10:57 Hypochromasia 1+ 08/09/17 10:57 Poikilocytosis 1+ 08/09/17 10:57 Anisocytosis 1+ 08/09/17 10:57 Microcytosis 1+ 08/09/17 10:57 Macrocytosis Not Reportable 08/09/17 10:57 Spherocytes Not Reportable 08/09/17 10:57 Pappenheimer Bodies Not Reportable 08/09/17 10:57 Sickle Cells Not Reportable 08/09/17 10:57 Target Cells Not Reportable 08/09/17 10:57 Tear Drop Cells Not Reportable 08/09/17 10:57 Ovalocytes Few 08/09/17 10:57 Stomatocytes 1+ 08/09/17 10:57 Helmet Cells Not Reportable 08/09/17 10:57 Harley-[place] Bodies Not Reportable 08/09/17 10:57 Kyburz Rings Not Reportable 08/09/17 10:57 Mignon Cells Not Reportable 08/09/17 10:57 Bite Cells Not Reportable 08/09/17 10:57 Crenated Cell Not Reportable 08/09/17 10:57 Elliptocytes Not Reportable 08/09/17 10:57 Acanthocytes (Spur) Not Reportable 08/09/17 10:57 Rouleaux Not Reportable 08/09/17 10:57 Hemoglobin C Crystals Not Reportable 08/09/17 10:57 Schistocytes Not Reportable 08/09/17 10:57 Malaria parasites Not Reportable 08/09/17 10:57 Cuco Bodies Not Reportable 08/09/17 10:57 Hem Pathologist Commnt No 08/09/17 10:57 PT 27.6 Sec. (12.2-14.9) H 08/22/17 05:00 INR 2.38 (0.87-1.13) H 08/22/17 05:00 APTT 29.0 Sec. (24.2-36.6) 08/14/17 10:36 D-Dimer 1693.79 ng/mlDDU (0-234) H 08/17/17 21:48 Heparin Anti-Xa Level 0.43 U.I./ml (0.3-0.7) 08/17/17 05:58 POC ABG pH 7.471 (7.35-7.45) H 08/15/17 04:20 POC ABG pCO2 53.8 (35-45) H 08/15/17 04:20 POC ABG pO2 81 (80-105) 08/15/17 04:20 POC ABG HCO3 39.3 08/15/17 04:20 POC ABG Total CO2 41 08/15/17 04:20 POC ABG O2 Sat 96 08/15/17 04:20 POC ABG Base Excess 16 08/15/17 04:20 VBG pH 7.463 (7.320-7.420) H 08/07/17 16:58 FiO2 100 % 08/15/17 04:20 Sodium 145 mmol/L (137-145) 08/22/17 04:00 Potassium 3.6 mmol/L (3.6-5.0) 08/22/17 04:00 Chloride 90.8 mmol/L (98-107) L 08/22/17 04:00 Carbon Dioxide 40 mmol/L (22-30) H 08/22/17 04:00 Anion Gap 18 mmol/L 08/22/17 04:00 BUN 30 mg/dL (9-20) H 08/22/17 04:00 Creatinine 0.9 mg/dL (0.8-1.5) 08/22/17 04:00 Estimated GFR > 60 ml/min 08/22/17 04:00 BUN/Creatinine Ratio 33 % 08/22/17 04:00 Glucose 149 mg/dL (75-100) H 08/22/17 04:00 POC Glucose 192 (70-105) H 08/22/17 16:38 Lactic Acid 0.90 mmol/L (0.7-2.0) 08/08/17 06:01 Calcium 9.1 mg/dL (8.4-10.2) 08/22/17 04:00 Magnesium 2.40 mg/dL (1.7-2.3) H 08/22/17 04:00 Total Bilirubin 0.70 mg/dL (0.1-1.2) 08/16/17 14:04 Direct Bilirubin 0.2 mg/dL (0-0.2) 08/11/17 07:12 Indirect Bilirubin 0.3 mg/dL 08/11/17 07:12 AST 11 units/L (5-40) 08/16/17 14:04 ALT 10 units/L (7-56) 08/16/17 14:04 Alkaline Phosphatase 68 units/L (35-129) 08/16/17 14:04 NT-Pro-B Natriuret Pep 6070 pg/mL (0-450) H 08/14/17 10:36 Total Protein 5.8 g/dL (6.3-8.2) L 08/16/17 14:04 Albumin 3.0 g/dL (3.9-5) L 08/16/17 14:04 Albumin/Globulin Ratio 1.1 % 08/16/17 14:04 TSH 4.780 mlU/mL (0.270-4.200) H 08/11/17 07:12 Free T4 0.86 ng/dL (0.76-1.46) 08/11/17 07:12
[2017-08-22] MEDS: GUAIFENESIN DM SYRUP PO PRN (21:59)
[2017-08-23] MEDS: NOVOLOG SUB-Q SCH ×5 (02:45→23:32)
[2017-08-23] MEDS: LASIX IV SCH ×3 (02:46→18:20)
[2017-08-23 06:11] LABS: INR 2.45 (0.87-1.13)
[2017-08-23] MEDS: K-DUR PO SCH (10:46)
--- NOTE | 2017-08-23 11:11 | Progress Note ---
Assessment and Plan 26 y/o male, morbidly, morbidly obese, admitted with acute respiratory failure, most likely multifactorial. No new recs today 1. Needs weight loss 2. has sleep study already scheduled, must keep appointment 3. Continue net negative state as renal function and BP will allow, suffers from systolic heart failure and severe pulmonary hypertension. 4. Suggest fluid restriction (patient has about 6 bottles of water and a large gatorade at bedside), 1.5 liters 5. Must have PPV on anytime he is sleeping as his heart rate drops into the 30' s while sleeping 6. Wean FiO2 for sats >88% 7. Will continue empiric anticoagulation for now. Subjective Date of service: 08/23/17 Principal diagnosis: heart failure, hypercapnic respiratory failure, severe morbid obesity Interval history: No acute events. Still on HFNC but flow down to 25 now. Objective Vital Signs - 12hr 08/22/17 08/23/17 08/23/17 23:48 02:00 04:32 Temperature 98.3 F 97.9 F Pulse Rate 75 81 Respiratory 18 18 Rate Blood Pressure 129/63 138/72 O2 Sat by Pulse 98 98 99 Oximetry 08/23/17 08:00 Temperature Pulse Rate Respiratory Rate Blood Pressure O2 Sat by Pulse 95 Oximetry Constitutional: no acute distress, alert, other (high flow oxygen, 100%) Eyes: non-icteric ENT: oropharynx moist Neck: other (extremely large in circumference) Effort: normal Ascultation: Right: rhonchi ( ), Bilateral: clear, diminished breath sounds, wheezes (mild) Percussion: Bilateral: not dull Cardiovascular: regular rate and rhythm Gastrointestinal: normoactive bowel sounds, soft, non-tender, non-distended, other (obese) Extremities: edema, other (bilateral lymphedema with chronic changes) Neurologic: normal mental status, non-focal exam Psychiatric: mood appropriate CBC and BMP: 08/22/17 04:00 08/22/17 04:00 ABG, PT/INR, D-dimer: ABG POC ABG pH 7.471 (7.35-7.45) H 08/15/17 04:20 POC ABG pCO2 53.8 (35-45) H 08/15/17 04:20 POC ABG pO2 81 (80-105) 08/15/17 04:20 POC ABG HCO3 39.3 08/15/17 04:20 POC ABG Total CO2 41 08/15/17 04:20 POC ABG O2 Sat 96 08/15/17 04:20 PT/INR, D-dimer PT 28.2 Sec. (12.2-14.9) H 08/23/17 05:25 INR 2.45 (0.87-1.13) H 08/23/17 05:25 D-Dimer 1693.79 ng/mlDDU (0-234) H 08/17/17 21:48 Abnormal lab findings: Abnormal Labs 08/07/17 08/07/17 08/07/17 16:58 16:58 16:58 WBC 16.1 H RBC 5.44 H Hgb Hct MCV 74 L MCH 22 L MCHC 29 L RDW 21.7 H [place] % (Auto) Seg Neutrophils % Seg Neuts % (Manual) 87.0 H Lymphocytes % (Manual) 7.0 L Monocytes % (Manual) Eosinophils % (Manual) Basophils % (Manual) 2.0 H Seg Neutrophils # Man 14.0 H Lymphocytes # (Manual) 1.1 L Monocytes # (Manual) Eosinophils # (Manual) Basophils # (Manual) 0.3 H PT 16.2 H INR 1.23 H D-Dimer Heparin Anti-Xa Level POC ABG pH POC ABG pCO2 POC ABG pO2 VBG pH Potassium Chloride 96.2 L Carbon Dioxide 31 H BUN Glucose POC Glucose Lactic Acid Calcium Magnesium NT-Pro-B Natriuret Pep Total Protein 5.8 L Albumin 3.0 L TSH 08/07/17 08/07/17 08/07/17 16:58 16:58 16:58 WBC RBC Hgb Hct MCV MCH MCHC RDW [place] % (Auto) Seg Neutrophils % Seg Neuts % (Manual) Lymphocytes % (Manual) Monocytes % (Manual) Eosinophils % (Manual) Basophils % (Manual) Seg Neutrophils # Man Lymphocytes # (Manual) Monocytes # (Manual) Eosinophils # (Manual) Basophils # (Manual) PT INR D-Dimer Heparin Anti-Xa Level POC ABG pH POC ABG pCO2 POC ABG pO2 VBG pH 7.463 H Potassium Chloride Carbon Dioxide BUN Glucose POC Glucose Lactic Acid 2.10 H* Calcium Magnesium NT-Pro-B Natriuret Pep 2205 H Total Protein Albumin TSH 08/09/17 08/09/17 08/10/17 10:57 13:37 08:04 WBC 14.5 H RBC Hgb 10.8 L 10.8 L Hct 35.1 L MCV 74 L 76 L MCH 23 L 23 L MCHC 31 L 30 L RDW 21.2 H 21.0 H [place] % (Auto) Seg Neutrophils % 75.4 H Seg Neuts % (Manual) Lymphocytes % (Manual) Monocytes % (Manual) 9.0 H Eosinophils % (Manual) 5.0 H Basophils % (Manual) Seg Neutrophils # Man 9.3 H Lymphocytes # (Manual) Monocytes # (Manual) 1.3 H Eosinophils # (Manual) 0.7 H Basophils # (Manual) PT INR D-Dimer Heparin Anti-Xa Level POC ABG pH POC ABG pCO2 POC ABG pO2 VBG pH Potassium Chloride 96.9 L Carbon Dioxide 32 H BUN Glucose POC Glucose Lactic Acid Calcium 8.3 L Magnesium NT-Pro-B Natriuret Pep Total Protein Albumin TSH 08/10/17 08/10/17 08/10/17 08:04 08:04 14:50 WBC RBC Hgb Hct MCV MCH MCHC RDW [place] % (Auto) Seg Neutrophils % Seg Neuts % (Manual) Lymphocytes % (Manual) Monocytes % (Manual) Eosinophils % (Manual) Basophils % (Manual) Seg Neutrophils # Man Lymphocytes # (Manual) Monocytes # (Manual) Eosinophils # (Manual) Basophils # (Manual) PT INR D-Dimer Heparin Anti-Xa Level POC ABG pH POC ABG pCO2 65.9 H POC ABG pO2 VBG pH Potassium Chloride Carbon Dioxide 32 H BUN Glucose 115 H POC Glucose Lactic Acid Calcium Magnesium NT-Pro-B Natriuret Pep Total Protein Albumin TSH 4.900 H 08/11/17 08/11/17 08/11/17 07:12 07:12 07:12 WBC RBC Hgb 10.3 L Hct MCV 76 L MCH 22 L MCHC 29 L RDW 21.4 H [place] % (Auto) 8.8 H Seg Neutrophils % Seg Neuts % (Manual) Lymphocytes % (Manual) Monocytes % (Manual) Eosinophils % (Manual) Basophils % (Manual) Seg Neutrophils # Man Lymphocytes # (Manual) Monocytes # (Manual) Eosinophils # (Manual) Basophils # (Manual) PT INR D-Dimer Heparin Anti-Xa Level POC ABG pH POC ABG pCO2 POC ABG pO2 VBG pH Potassium Chloride Carbon Dioxide 35 H BUN Glucose 105 H POC Glucose Lactic Acid Calcium Magnesium NT-Pro-B Natriuret Pep Total Protein 5.8 L Albumin 3.1 L TSH 4.780 H 08/12/17 08/12/17 08/13/17 04:31 04:31 11:34 WBC RBC Hgb 10.7 L Hct 35.3 L MCV 76 L MCH 23 L MCHC 30 L RDW 21.3 H [place] % (Auto) Seg Neutrophils % Seg Neuts % (Manual) Lymphocytes % (Manual) Monocytes % (Manual) Eosinophils % (Manual) Basophils % (Manual) Seg Neutrophils # Man Lymphocytes # (Manual) Monocytes # (Manual) Eosinophils # (Manual) Basophils # (Manual) PT INR D-Dimer Heparin Anti-Xa Level POC ABG pH POC ABG pCO2 61.1 H POC ABG pO2 57 L VBG pH Potassium Chloride 95.8 L Carbon Dioxide 33 H BUN Glucose POC Glucose Lactic Acid Calcium Magnesium NT-Pro-B Natriuret Pep Total Protein 5.8 L Albumin 3.0 L TSH 08/14/17 08/14/17 08/14/17 10:36 10:36 10:36 WBC RBC Hgb 10.7 L Hct MCV MCH MCHC RDW [place] % (Auto) Seg Neutrophils % Seg Neuts % (Manual) Lymphocytes % (Manual) Monocytes % (Manual) Eosinophils % (Manual) Basophils % (Manual) Seg Neutrophils # Man Lymphocytes # (Manual) Monocytes # (Manual) Eosinophils # (Manual) Basophils # (Manual) PT 15.8 H INR 1.20 H D-Dimer Heparin Anti-Xa Level POC ABG pH POC ABG pCO2 POC ABG pO2 VBG pH Potassium Chloride Carbon Dioxide BUN Glucose POC Glucose Lactic Acid Calcium Magnesium NT-Pro-B Natriuret Pep 6070 H Total Protein Albumin TSH 08/14/17 08/14/17 08/14/17 17:23 20:37 23:18 WBC RBC Hgb Hct MCV MCH MCHC RDW [place] % (Auto) Seg Neutrophils % Seg Neuts % (Manual) Lymphocytes % (Manual) Monocytes % (Manual) Eosinophils % (Manual) Basophils % (Manual) Seg Neutrophils # Man Lymphocytes # (Manual) Monocytes # (Manual) Eosinophils # (Manual) Basophils # (Manual) PT INR D-Dimer Heparin Anti-Xa Level < 0.10 L POC ABG pH 7.566 H 7.494 H POC ABG pCO2 51.6 H POC ABG pO2 45 L 52 L VBG pH Potassium Chloride Carbon Dioxide BUN Glucose POC Glucose Lactic Acid Calcium Magnesium NT-Pro-B Natriuret Pep Total Protein Albumin TSH 08/15/17 08/15/17 08/15/17 04:15 04:20 08:26 WBC RBC Hgb Hct MCV MCH MCHC RDW [place] % (Auto) Seg Neutrophils % Seg Neuts % (Manual) Lymphocytes % (Manual) Monocytes % (Manual) Eosinophils % (Manual) Basophils % (Manual) Seg Neutrophils # Man Lymphocytes # (Manual) Monocytes # (Manual) Eosinophils # (Manual) Basophils # (Manual) PT 16.3 H INR 1.24 H D-Dimer Heparin Anti-Xa Level 0.12 L POC ABG pH 7.471 H POC ABG pCO2 53.8 H POC ABG pO2 VBG pH Potassium Chloride Carbon Dioxide BUN Glucose POC Glucose Lactic Acid Calcium Magnesium NT-Pro-B Natriuret Pep Total Protein Albumin TSH 08/15/17 08/16/17 08/16/17 22:00 05:25 05:25 WBC RBC Hgb 11.1 L Hct MCV MCH MCHC RDW [place] % (Auto) Seg Neutrophils % Seg Neuts % (Manual) Lymphocytes % (Manual) Monocytes % (Manual) Eosinophils % (Manual) Basophils % (Manual) Seg Neutrophils # Man Lymphocytes # (Manual) Monocytes # (Manual) Eosinophils # (Manual) Basophils # (Manual) PT 20.1 H INR 1.61 H D-Dimer Heparin Anti-Xa Level 0.17 L 0.28 L POC ABG pH POC ABG pCO2 POC ABG pO2 VBG pH Potassium Chloride Carbon Dioxide BUN Glucose POC Glucose Lactic Acid Calcium Magnesium NT-Pro-B Natriuret Pep Total Protein Albumin [facility] 08/16/17 08/16/17 08/17/17 14:04 14:04 05:58 WBC RBC 5.10 H Hgb 11.2 L Hct MCV 75 L MCH 22 L MCHC 29 L RDW 20.9 H [place] % (Auto) Seg Neutrophils % Seg Neuts % (Manual) Lymphocytes % (Manual) Monocytes % (Manual) Eosinophils % (Manual) Basophils % (Manual) Seg Neutrophils # Man Lymphocytes # (Manual) Monocytes # (Manual) Eosinophils # (Manual) Basophils # (Manual) PT 34.7 H INR 3.20 H D-Dimer Heparin Anti-Xa Level POC ABG pH POC ABG pCO2 POC ABG pO2 VBG pH Potassium 3.5 L Chloride 93.1 L Carbon Dioxide 37 H BUN 27 H Glucose 226 H POC Glucose Lactic Acid Calcium Magnesium NT-Pro-B Natriuret Pep Total Protein 5.8 L Albumin 3.0 L [facility] 08/17/17 08/18/17 08/18/17 21:48 04:00 05:23 WBC RBC Hgb 11.3 L Hct MCV MCH MCHC RDW [place] % (Auto) Seg Neutrophils % Seg Neuts % (Manual) Lymphocytes % (Manual) Monocytes % (Manual) Eosinophils % (Manual) Basophils % (Manual) Seg Neutrophils # Man Lymphocytes # (Manual) Monocytes # (Manual) Eosinophils # (Manual) Basophils # (Manual) PT 24.2 H INR 2.04 H D-Dimer 1693.79 H Heparin Anti-Xa Level POC ABG pH POC ABG pCO2 POC ABG pO2 VBG pH Potassium Chloride Carbon Dioxide BUN Glucose POC Glucose Lactic Acid Calcium Magnesium NT-Pro-B Natriuret Pep Total Protein Albumin [facility] 08/18/17 08/19/17 08/20/17 05:23 04:30 03:00 WBC RBC Hgb 11.7 L Hct MCV MCH MCHC RDW [place] % (Auto) Seg Neutrophils % Seg Neuts % (Manual) Lymphocytes % (Manual) Monocytes % (Manual) Eosinophils % (Manual) Basophils % (Manual) Seg Neutrophils # Man Lymphocytes # (Manual) Monocytes # (Manual) Eosinophils # (Manual) Basophils # (Manual) PT 20.0 H INR 1.60 H D-Dimer Heparin Anti-Xa Level POC ABG pH POC ABG pCO2 POC ABG pO2 VBG pH Potassium Chloride 86.8 L Carbon Dioxide 38 H BUN 33 H Glucose 355 H POC Glucose Lactic Acid Calcium Magnesium NT-Pro-B Natriuret Pep Total Protein Albumin [facility] 08/20/17 08/20/17 08/20/17 03:00 03:00 17:37 WBC RBC Hgb Hct MCV MCH MCHC RDW [place] % (Auto) Seg Neutrophils % Seg Neuts % (Manual) Lymphocytes % (Manual) Monocytes % (Manual) Eosinophils % (Manual) Basophils % (Manual) Seg Neutrophils # Man Lymphocytes # (Manual) Monocytes # (Manual) Eosinophils # (Manual) Basophils # (Manual) PT 22.7 H INR 1.87 H D-Dimer Heparin Anti-Xa Level POC ABG pH POC ABG pCO2 POC ABG pO2 VBG pH Potassium Chloride 91.3 L Carbon Dioxide 38 H BUN 34 H Glucose 391 H POC Glucose 312 H Lactic Acid Calcium Magnesium NT-Pro-B Natriuret Pep Total Protein Albumin [facility] 08/20/17 08/21/17 08/21/17 22:34 06:40 08:22 WBC RBC Hgb Hct MCV MCH MCHC RDW [place] % (Auto) Seg Neutrophils % Seg Neuts % (Manual) Lymphocytes % (Manual) Monocytes % (Manual) Eosinophils % (Manual) Basophils % (Manual) Seg Neutrophils # Man Lymphocytes # (Manual) Monocytes # (Manual) Eosinophils # (Manual) Basophils # (Manual) PT 28.6 H INR 2.49 H D-Dimer Heparin Anti-Xa Level POC ABG pH POC ABG pCO2 POC ABG pO2 VBG pH Potassium Chloride Carbon Dioxide BUN Glucose POC Glucose 166 H 123 H Lactic Acid Calcium Magnesium NT-Pro-B Natriuret Pep Total Protein Albumin [facility] 08/21/17 08/21/17 08/21/17 12:29 17:08 21:17 WBC RBC Hgb Hct MCV MCH MCHC RDW [place] % (Auto) Seg Neutrophils % Seg Neuts % (Manual) Lymphocytes % (Manual) Monocytes % (Manual) Eosinophils % (Manual) Basophils % (Manual) Seg Neutrophils # Man Lymphocytes # (Manual) Monocytes # (Manual) Eosinophils # (Manual) Basophils # (Manual) PT INR D-Dimer Heparin Anti-Xa Level POC ABG pH POC ABG pCO2 POC ABG pO2 VBG pH Potassium Chloride Carbon Dioxide BUN Glucose POC Glucose 182 H 135 H 145 H Lactic Acid Calcium Magnesium NT-Pro-B Natriuret Pep Total Protein Albumin [facility] 08/22/17 08/22/17 08/22/17 04:00 05:00 08:35 WBC RBC Hgb Hct MCV MCH MCHC RDW [place] % (Auto) Seg Neutrophils % Seg Neuts % (Manual) Lymphocytes % (Manual) Monocytes % (Manual) Eosinophils % (Manual) Basophils % (Manual) Seg Neutrophils # Man Lymphocytes # (Manual) Monocytes # (Manual) Eosinophils # (Manual) Basophils # (Manual) PT 27.6 H INR 2.38 H D-Dimer Heparin Anti-Xa Level POC ABG pH POC ABG pCO2 POC ABG pO2 VBG pH Potassium Chloride 90.8 L Carbon Dioxide 40 H BUN 30 H Glucose 149 H POC Glucose 132 H Lactic Acid Calcium Magnesium 2.40 H NT-Pro-B Natriuret Pep Total Protein Albumin TSH 08/22/17 08/22/17 08/22/17 13:54 16:38 21:07 WBC RBC Hgb Hct MCV MCH MCHC RDW [place] % (Auto) Seg Neutrophils % Seg Neuts % (Manual) Lymphocytes % (Manual) Monocytes % (Manual) Eosinophils % (Manual) Basophils % (Manual) Seg Neutrophils # Man Lymphocytes # (Manual) Monocytes # (Manual) Eosinophils # (Manual) Basophils # (Manual) PT INR D-Dimer Heparin Anti-Xa Level POC ABG pH POC ABG pCO2 POC ABG pO2 VBG pH Potassium Chloride Carbon Dioxide BUN Glucose POC Glucose 189 H 192 H 181 H Lactic Acid Calcium Magnesium NT-Pro-B Natriuret Pep Total Protein Albumin TSH 08/23/17 05:25 WBC RBC Hgb Hct MCV MCH MCHC RDW [place] % (Auto) Seg Neutrophils % Seg Neuts % (Manual) Lymphocytes % (Manual) Monocytes % (Manual) Eosinophils % (Manual) Basophils % (Manual) Seg Neutrophils # Man Lymphocytes # (Manual) Monocytes # (Manual) Eosinophils # (Manual) Basophils # (Manual) PT 28.2 H INR 2.45 H D-Dimer Heparin Anti-Xa Level POC ABG pH POC ABG pCO2 POC ABG pO2 VBG pH Potassium Chloride Carbon Dioxide BUN Glucose POC Glucose Lactic Acid Calcium Magnesium NT-Pro-B Natriuret Pep Total Protein Albumin TSH
--- NOTE | 2017-08-23 11:47 | Progress Note ---
Assessment and Plan Assessment and plan: --Acute on chronic hypoxic, hypercapnic respiratory failure on high flow oxygen, BIPAP prn, continue nebulizers , off steroids , Patient will need neb, NIV and HHS at discharge --Morbid obesity; BMI of 82; counseling done, patient may benefit from bariatric surgical consultation And weight reduction program when medically stable -- obstructive sleep apnea/obesity hypoventilation syndrome/morbid obesity Continue, BiPAP at night, Oxygen, duo nebs, pulmonary following, out patient sleep study --Acute systolic congestive heart failure ; EF 40-45% with severe pulmonary hypertension Continue diuretics Lasix 40 every 8 hours, input output monitoring --Severe pulmonary hypertension on echocardiogram; diuretics, fluid restriction , --Left lower lobe pneumonia/atelectasis/community-acquired; resolved, completed treatment --Leukocytosis secondary to sepsis and steroids; resolved --Chronic massive lymphedema; supportive care, wound care and lymphedema care as needed --Empiric anticoagulation on Coumadin, therapeutic INR, target INR 2-3 --Discharge planning. Case management, possible home with home health when patient is stable --Physical therapy occupational therapy as tolerated Plan of care reviewed with the patient and his nurse as well as the case management I also discussed with his uncle Mr. Mishra at the bedside ,the plan of care, had numerous questions, answered all of them History Interval history: Patient seen and examined medical records reviewed Feeling better no new complaints Denies chest pain or shortness of breath On high flow oxygen Vital signs reviewed Family members at the bedside Hospitalist Physical - Constitutional Vitals: Temp Pulse Resp BP Pulse Ox 97.9 F 81 18 138/72 95 08/23/17 04:32 08/23/17 04:32 08/23/17 04:32 08/23/17 04:32 08/23/17 08:00 General appearance: Present: no acute distress, obese (morbidly obese) - EENT Eyes: Present: PERRL, EOM intact - Neck Neck: Present: supple, normal ROM - Respiratory Respiratory effort: normal Respiratory: bilateral: diminished, negative: rales, rhonchi, wheezing - Cardiovascular Rhythm: regular Heart Sounds: Present: S1 & S2 - Extremities Extremities: no ischemia, abnormal (chronic lymphedema) Extremity abnormal: edema - Abdominal General gastrointestinal: soft, non-tender, non-distended, normal bowel sounds - Integumentary Integumentary: Present: clear, warm - Psychiatric Psychiatric: appropriate mood/affect, cooperative - Neurologic Neurologic: CNII-XII intact, moves all extremities Results - Labs CBC & Chem 7: 08/22/17 04:00 08/22/17 04:00 Labs: Laboratory Last Values WBC 7.6 K/mm3 (4.5-11.0) 08/16/17 14:04 RBC 5.10 M/mm3 (3.65-5.03) H 08/16/17 14:04 Hgb 12.2 gm/dl (11.8-15.2) 08/22/17 04:00 Hct 40.4 % (35.5-45.6) 08/22/17 04:00 MCV 75 fl (84-94) L 08/16/17 14:04 MCH 22 pg (28-32) L 08/16/17 14:04 MCHC 29 % (32-34) L 08/16/17 14:04 RDW 20.9 % (13.2-15.2) H 08/16/17 14:04 Plt Count 179 K/mm3 (140-440) 08/22/17 04:00 Lymph % (Auto) 18.2 % (13.4-35.0) 08/12/17 04:31 [place] % (Auto) 7.0 % (0.0-7.3) 08/12/17 04:31 Eos % (Auto) 4.0 % (0.0-4.3) 08/12/17 04:31 Baso % (Auto) 0.8 % (0.0-1.8) 08/12/17 04:31 Lymph # 1.5 K/mm3 (1.2-5.4) 08/12/17 04:31 [place] # 0.6 K/mm3 (0.0-0.8) 08/12/17 04:31 Eos # 0.3 K/mm3 (0.0-0.4) 08/12/17 04:31 Baso # 0.1 K/mm3 (0.0-0.1) 08/12/17 04:31 Add Manual Diff Complete 08/09/17 10:57 Total Counted 100 08/09/17 10:57 Seg Neutrophils % 70.0 % (40.0-70.0) 08/12/17 04:31 Seg Neuts % (Manual) 64.0 % (40.0-70.0) 08/09/17 10:57 Band Neutrophils % 4.0 % 08/09/17 10:57 Lymphocytes % (Manual) 15.0 % (13.4-35.0) 08/09/17 10:57 Reactive Lymphs % (Man) 3.0 % 08/09/17 10:57 Monocytes % (Manual) 9.0 % (0.0-7.3) H 08/09/17 10:57 Eosinophils % (Manual) 5.0 % (0.0-4.3) H 08/09/17 10:57 Basophils % (Manual) 0 % (0.0-1.8) 08/09/17 10:57 Metamyelocytes % 0 % 08/09/17 10:57 Myelocytes % 0 % 08/09/17 10:57 Promyelocytes % 0 % 08/09/17 10:57 Blast Cells % 0 % 08/09/17 10:57 Nucleated RBC % Not Reportable 08/09/17 10:57 Seg Neutrophils # 5.9 K/mm3 (1.8-7.7) 08/12/17 04:31 Seg Neutrophils # Man 9.3 K/mm3 (1.8-7.7) H 08/09/17 10:57 Band Neutrophils # 0.6 K/mm3 08/09/17 10:57 Lymphocytes # (Manual) 2.2 K/mm3 (1.2-5.4) 08/09/17 10:57 Abs React Lymphs (Man) 0.4 K/mm3 08/09/17 10:57 Monocytes # (Manual) 1.3 K/mm3 (0.0-0.8) H 08/09/17 10:57 Eosinophils # (Manual) 0.7 K/mm3 (0.0-0.4) H 08/09/17 10:57 Basophils # (Manual) 0.0 K/mm3 (0.0-0.1) 08/09/17 10:57 Metamyelocytes # 0.0 K/mm3 08/09/17 10:57 Myelocytes # 0.0 K/mm3 08/09/17 10:57 Promyelocytes # 0.0 K/mm3 08/09/17 10:57 Blast Cells # 0.0 K/mm3 08/09/17 10:57 WBC Morphology Not Reportable 08/09/17 10:57 Hypersegmented Neuts Not Reportable 08/09/17 10:57 Hyposegmented Neuts Not Reportable 08/09/17 10:57 Hypogranular Neuts Not Reportable 08/09/17 10:57 Smudge Cells Not Reportable 08/09/17 10:57 Toxic Granulation Not Reportable 08/09/17 10:57 Toxic Vacuolation Not Reportable 08/09/17 10:57 Dohle Bodies Not Reportable 08/09/17 10:57 Pelger-Huet Anomaly Not Reportable 08/09/17 10:57 Noa Rods Not Reportable 08/09/17 10:57 Platelet Estimate Consistent w auto 08/09/17 10:57 Clumped Platelets Not Reportable 08/09/17 10:57 Plt Clumps, EDTA Not Reportable 08/09/17 10:57 Large Platelets Not Reportable 08/09/17 10:57 Giant Platelets Few 08/09/17 10:57 Platelet Satelliting Not Reportable 08/09/17 10:57 Plt Morphology Comment Not Reportable 08/09/17 10:57 RBC Morphology Not Reportable 08/09/17 10:57 Dimorphic RBCs Not Reportable 08/09/17 10:57 Polychromasia Not Reportable 08/09/17 10:57 Hypochromasia 1+ 08/09/17 10:57 Poikilocytosis 1+ 08/09/17 10:57 Anisocytosis 1+ 08/09/17 10:57 Microcytosis 1+ 08/09/17 10:57 Macrocytosis Not Reportable 08/09/17 10:57 Spherocytes Not Reportable 08/09/17 10:57 Pappenheimer Bodies Not Reportable 08/09/17 10:57 Sickle Cells Not Reportable 08/09/17 10:57 Target Cells Not Reportable 08/09/17 10:57 Tear Drop Cells Not Reportable 08/09/17 10:57 Ovalocytes Few 08/09/17 10:57 Stomatocytes 1+ 08/09/17 10:57 Helmet Cells Not Reportable 08/09/17 10:57 [place] Bodies Not Reportable 08/09/17 10:57 [place] Rings Not Reportable 08/09/17 10:57 [place] Cells Not Reportable 08/09/17 10:57 Bite Cells Not Reportable 08/09/17 10:57 Crenated Cell Not Reportable 08/09/17 10:57 Elliptocytes Not Reportable 08/09/17 10:57 Acanthocytes (Spur) Not Reportable 08/09/17 10:57 Rouleaux Not Reportable 08/09/17 10:57 Hemoglobin C Crystals Not Reportable 08/09/17 10:57 Schistocytes Not Reportable 08/09/17 10:57 Malaria parasites Not Reportable 08/09/17 10:57 Cuco Bodies Not Reportable 08/09/17 10:57 Hem Pathologist Commnt No 08/09/17 10:57 PT 28.2 Sec. (12.2-14.9) H 08/23/17 05:25 INR 2.45 (0.87-1.13) H 08/23/17 05:25 APTT 29.0 Sec. (24.2-36.6) 08/14/17 10:36 D-Dimer 1693.79 ng/mlDDU (0-234) H 08/17/17 21:48 Heparin Anti-Xa Level 0.43 U.I./ml (0.3-0.7) 08/17/17 05:58 POC ABG pH 7.471 (7.35-7.45) H 08/15/17 04:20 POC ABG pCO2 53.8 (35-45) H 08/15/17 04:20 POC ABG pO2 81 (80-105) 08/15/17 04:20 POC ABG HCO3 39.3 08/15/17 04:20 POC ABG Total CO2 41 08/15/17 04:20 POC ABG O2 Sat 96 08/15/17 04:20 POC ABG Base Excess 16 08/15/17 04:20 VBG pH 7.463 (7.320-7.420) H 08/07/17 16:58 FiO2 100 % 08/15/17 04:20 Sodium 145 mmol/L (137-145) 08/22/17 04:00 Potassium 3.6 mmol/L (3.6-5.0) 08/22/17 04:00 Chloride 90.8 mmol/L (98-107) L 08/22/17 04:00 Carbon Dioxide 40 mmol/L (22-30) H 08/22/17 04:00 Anion Gap 18 mmol/L 08/22/17 04:00 BUN 30 mg/dL (9-20) H 08/22/17 04:00 Creatinine 0.9 mg/dL (0.8-1.5) 08/22/17 04:00 Estimated GFR > 60 ml/min 08/22/17 04:00 BUN/Creatinine Ratio 33 % 08/22/17 04:00 Glucose 149 mg/dL (75-100) H 08/22/17 04:00 POC Glucose 181 (70-105) H 08/22/17 21:07 Lactic Acid 0.90 mmol/L (0.7-2.0) 08/08/17 06:01 Calcium 9.1 mg/dL (8.4-10.2) 08/22/17 04:00 Magnesium 2.40 mg/dL (1.7-2.3) H 08/22/17 04:00 Total Bilirubin 0.70 mg/dL (0.1-1.2) 08/16/17 14:04 Direct Bilirubin 0.2 mg/dL (0-0.2) 08/11/17 07:12 Indirect Bilirubin 0.3 mg/dL 08/11/17 07:12 AST 11 units/L (5-40) 08/16/17 14:04 ALT 10 units/L (7-56) 08/16/17 14:04 Alkaline Phosphatase 68 units/L (35-129) 08/16/17 14:04 NT-Pro-B Natriuret Pep 6070 pg/mL (0-450) H 08/14/17 10:36 Total Protein 5.8 g/dL (6.3-8.2) L 08/16/17 14:04 Albumin 3.0 g/dL (3.9-5) L 08/16/17 14:04 Albumin/Globulin Ratio 1.1 % 08/16/17 14:04 TSH 4.780 mlU/mL (0.270-4.200) H 08/11/17 07:12 Free T4 0.86 ng/dL (0.76-1.46) 08/11/17 07:12
[2017-08-23] MEDS: COUMADIN PO SCH (18:18)
[2017-08-23] MEDS: GUAIFENESIN DM SYRUP PO PRN (22:33)
[2017-08-24] MEDS: LASIX IV SCH ×3 (02:44→18:39)
[2017-08-24 08:45] LABS: INR 2.57 (0.87-1.13)
[2017-08-24] MEDS: K-DUR PO SCH (10:42)
[2017-08-24] MEDS: NOVOLOG SUB-Q SCH ×4 (10:49→22:09)
--- NOTE | 2017-08-24 14:43 | Progress Note ---
Assessment and Plan 26 y/o male, morbidly, morbidly obese, admitted with acute respiratory failure, most likely multifactorial. No new recs today, awaiting possible placement. But if oxygen requirement continues to improve, maybe able to go to rehab if needed vs home. 1. Needs weight loss 2. has sleep study already scheduled, must keep appointment 3. Continue net negative state as renal function and BP will allow, suffers from systolic heart failure and severe pulmonary hypertension. 4. Suggest fluid restriction (patient has about 6 bottles of water and a large gatorade at bedside), 1.5 liters 5. Must have PPV on anytime he is sleeping as his heart rate drops into the 30' s while sleeping 6. Wean FiO2 for sats >88% 7. Will continue empiric anticoagulation for now. Subjective Date of service: 08/24/17 Principal diagnosis: heart failure, hypercapnic respiratory failure, severe morbid obesity Interval history: Patient weaned to 6 liters NC on yesterday evening. Objective Vital Signs - 12hr 08/24/17 08/24/17 05:01 08:18 Temperature 98.4 F 98.4 F Pulse Rate 105 H 102 H Respiratory 20 Rate Blood Pressure 122/69 122/68 O2 Sat by Pulse 96 95 Oximetry Constitutional: no acute distress, alert, other (high flow oxygen, 100%) Eyes: non-icteric ENT: oropharynx moist Neck: other (extremely large in circumference) Effort: normal Ascultation: Right: rhonchi ( ), Bilateral: clear, diminished breath sounds, wheezes (mild) Percussion: Bilateral: not dull Cardiovascular: regular rate and rhythm Gastrointestinal: normoactive bowel sounds, soft, non-tender, non-distended, other (obese) Extremities: edema, other (bilateral lymphedema with chronic changes) Neurologic: normal mental status, non-focal exam Psychiatric: mood appropriate CBC and BMP: 08/22/17 04:00 08/22/17 04:00 ABG, PT/INR, D-dimer: ABG POC ABG pH 7.471 (7.35-7.45) H 08/15/17 04:20 POC ABG pCO2 53.8 (35-45) H 08/15/17 04:20 POC ABG pO2 81 (80-105) 08/15/17 04:20 POC ABG HCO3 39.3 08/15/17 04:20 POC ABG Total CO2 41 08/15/17 04:20 POC ABG O2 Sat 96 08/15/17 04:20 PT/INR, D-dimer PT 29.3 Sec. (12.2-14.9) H 08/24/17 08:00 INR 2.57 (0.87-1.13) H 08/24/17 08:00 D-Dimer 1693.79 ng/mlDDU (0-234) H 08/17/17 21:48 Abnormal lab findings: Abnormal Labs 08/07/17 08/07/17 08/07/17 16:58 16:58 16:58 WBC 16.1 H RBC 5.44 H Hgb Hct MCV 74 L MCH 22 L MCHC 29 L RDW 21.7 H [place] % (Auto) Seg Neutrophils % Seg Neuts % (Manual) 87.0 H Lymphocytes % (Manual) 7.0 L Monocytes % (Manual) Eosinophils % (Manual) Basophils % (Manual) 2.0 H Seg Neutrophils # Man 14.0 H Lymphocytes # (Manual) 1.1 L Monocytes # (Manual) Eosinophils # (Manual) Basophils # (Manual) 0.3 H PT 16.2 H INR 1.23 H D-Dimer Heparin Anti-Xa Level POC ABG pH POC ABG pCO2 POC ABG pO2 VBG pH Potassium Chloride 96.2 L Carbon Dioxide 31 H BUN Glucose POC Glucose Lactic Acid Calcium Magnesium NT-Pro-B Natriuret Pep Total Protein 5.8 L Albumin 3.0 L TSH 08/07/17 08/07/17 08/07/17 16:58 16:58 16:58 WBC RBC Hgb Hct MCV MCH MCHC RDW [place] % (Auto) Seg Neutrophils % Seg Neuts % (Manual) Lymphocytes % (Manual) Monocytes % (Manual) Eosinophils % (Manual) Basophils % (Manual) Seg Neutrophils # Man Lymphocytes # (Manual) Monocytes # (Manual) Eosinophils # (Manual) Basophils # (Manual) PT INR D-Dimer Heparin Anti-Xa Level POC ABG pH POC ABG pCO2 POC ABG pO2 VBG pH 7.463 H Potassium Chloride Carbon Dioxide BUN Glucose POC Glucose Lactic Acid 2.10 H* Calcium Magnesium NT-Pro-B Natriuret Pep 2205 H Total Protein Albumin TSH 02/03/18 02/03/18 02/04/18 10:57 13:37 08:04 WBC 14.5 H RBC Hgb 10.8 L 10.8 L Hct 35.1 L MCV 74 L 76 L MCH 23 L 23 L MCHC 31 L 30 L RDW 21.2 H 21.0 H [place] % (Auto) Seg Neutrophils % 75.4 H Seg Neuts % (Manual) Lymphocytes % (Manual) Monocytes % (Manual) 9.0 H Eosinophils % (Manual) 5.0 H Basophils % (Manual) Seg Neutrophils # Man 9.3 H Lymphocytes # (Manual) Monocytes # (Manual) 1.3 H Eosinophils # (Manual) 0.7 H Basophils # (Manual) PT INR D-Dimer Heparin Anti-Xa Level POC ABG pH POC ABG pCO2 POC ABG pO2 VBG pH Potassium Chloride 96.9 L Carbon Dioxide 32 H BUN Glucose POC Glucose Lactic Acid Calcium 8.3 L Magnesium NT-Pro-B Natriuret Pep Total Protein Albumin TSH 08/10/17 08/10/17 08/10/17 08:04 08:04 14:50 WBC RBC Hgb Hct MCV MCH MCHC RDW [place] % (Auto) Seg Neutrophils % Seg Neuts % (Manual) Lymphocytes % (Manual) Monocytes % (Manual) Eosinophils % (Manual) Basophils % (Manual) Seg Neutrophils # Man Lymphocytes # (Manual) Monocytes # (Manual) Eosinophils # (Manual) Basophils # (Manual) PT INR D-Dimer Heparin Anti-Xa Level POC ABG pH POC ABG pCO2 65.9 H POC ABG pO2 VBG pH Potassium Chloride Carbon Dioxide 32 H BUN Glucose 115 H POC Glucose Lactic Acid Calcium Magnesium NT-Pro-B Natriuret Pep Total Protein Albumin TSH 4.900 H 08/11/17 08/11/17 08/11/17 07:12 07:12 07:12 WBC RBC Hgb 10.3 L Hct MCV 76 L MCH 22 L MCHC 29 L RDW 21.4 H [place] % (Auto) 8.8 H Seg Neutrophils % Seg Neuts % (Manual) Lymphocytes % (Manual) Monocytes % (Manual) Eosinophils % (Manual) Basophils % (Manual) Seg Neutrophils # Man Lymphocytes # (Manual) Monocytes # (Manual) Eosinophils # (Manual) Basophils # (Manual) PT INR D-Dimer Heparin Anti-Xa Level POC ABG pH POC ABG pCO2 POC ABG pO2 VBG pH Potassium Chloride Carbon Dioxide 35 H BUN Glucose 105 H POC Glucose Lactic Acid Calcium Magnesium NT-Pro-B Natriuret Pep Total Protein 5.8 L Albumin 3.1 L TSH 4.780 H 08/12/17 08/12/17 08/13/17 04:31 04:31 11:34 WBC RBC Hgb 10.7 L Hct 35.3 L MCV 76 L MCH 23 L MCHC 30 L RDW 21.3 H [place] % (Auto) Seg Neutrophils % Seg Neuts % (Manual) Lymphocytes % (Manual) Monocytes % (Manual) Eosinophils % (Manual) Basophils % (Manual) Seg Neutrophils # Man Lymphocytes # (Manual) Monocytes # (Manual) Eosinophils # (Manual) Basophils # (Manual) PT INR D-Dimer Heparin Anti-Xa Level POC ABG pH POC ABG pCO2 61.1 H POC ABG pO2 57 L VBG pH Potassium Chloride 95.8 L Carbon Dioxide 33 H BUN Glucose POC Glucose Lactic Acid Calcium Magnesium NT-Pro-B Natriuret Pep Total Protein 5.8 L Albumin 3.0 L TSH 08/14/17 08/14/17 08/14/17 10:36 10:36 10:36 WBC RBC Hgb 10.7 L Hct MCV MCH MCHC RDW [place] % (Auto) Seg Neutrophils % Seg Neuts % (Manual) Lymphocytes % (Manual) Monocytes % (Manual) Eosinophils % (Manual) Basophils % (Manual) Seg Neutrophils # Man Lymphocytes # (Manual) Monocytes # (Manual) Eosinophils # (Manual) Basophils # (Manual) PT 15.8 H INR 1.20 H D-Dimer Heparin Anti-Xa Level POC ABG pH POC ABG pCO2 POC ABG pO2 VBG pH Potassium Chloride Carbon Dioxide BUN Glucose POC Glucose Lactic Acid Calcium Magnesium NT-Pro-B Natriuret Pep 6070 H Total Protein Albumin TSH 08/14/17 08/14/17 08/14/17 17:23 20:37 23:18 WBC RBC Hgb Hct MCV MCH MCHC RDW [place] % (Auto) Seg Neutrophils % Seg Neuts % (Manual) Lymphocytes % (Manual) Monocytes % (Manual) Eosinophils % (Manual) Basophils % (Manual) Seg Neutrophils # Man Lymphocytes # (Manual) Monocytes # (Manual) Eosinophils # (Manual) Basophils # (Manual) PT INR D-Dimer Heparin Anti-Xa Level < 0.10 L POC ABG pH 7.566 H 7.494 H POC ABG pCO2 51.6 H POC ABG pO2 45 L 52 L VBG pH Potassium Chloride Carbon Dioxide BUN Glucose POC Glucose Lactic Acid Calcium Magnesium NT-Pro-B Natriuret Pep Total Protein Albumin TSH 08/15/17 08/15/17 08/15/17 04:15 04:20 08:26 WBC RBC Hgb Hct MCV MCH MCHC RDW [place] % (Auto) Seg Neutrophils % Seg Neuts % (Manual) Lymphocytes % (Manual) Monocytes % (Manual) Eosinophils % (Manual) Basophils % (Manual) Seg Neutrophils # Man Lymphocytes # (Manual) Monocytes # (Manual) Eosinophils # (Manual) Basophils # (Manual) PT 16.3 H INR 1.24 H D-Dimer Heparin Anti-Xa Level 0.12 L POC ABG pH 7.471 H POC ABG pCO2 53.8 H POC ABG pO2 VBG pH Potassium Chloride Carbon Dioxide BUN Glucose POC Glucose Lactic Acid Calcium Magnesium NT-Pro-B Natriuret Pep Total Protein Albumin TSH 08/15/17 08/16/17 08/16/17 22:00 05:25 05:25 WBC RBC Hgb 11.1 L Hct MCV MCH MCHC RDW [place] % (Auto) Seg Neutrophils % Seg Neuts % (Manual) Lymphocytes % (Manual) Monocytes % (Manual) Eosinophils % (Manual) Basophils % (Manual) Seg Neutrophils # Man Lymphocytes # (Manual) Monocytes # (Manual) Eosinophils # (Manual) Basophils # (Manual) PT 20.1 H INR 1.61 H D-Dimer Heparin Anti-Xa Level 0.17 L 0.28 L POC ABG pH POC ABG pCO2 POC ABG pO2 VBG pH Potassium Chloride Carbon Dioxide BUN Glucose POC Glucose Lactic Acid Calcium Magnesium NT-Pro-B Natriuret Pep Total Protein Albumin TSH 08/16/17 08/16/17 08/17/17 14:04 14:04 05:58 WBC RBC 5.10 H Hgb 11.2 L Hct MCV 75 L MCH 22 L MCHC 29 L RDW 20.9 H [place] % (Auto) Seg Neutrophils % Seg Neuts % (Manual) Lymphocytes % (Manual) Monocytes % (Manual) Eosinophils % (Manual) Basophils % (Manual) Seg Neutrophils # Man Lymphocytes # (Manual) Monocytes # (Manual) Eosinophils # (Manual) Basophils # (Manual) PT 34.7 H INR 3.20 H D-Dimer Heparin Anti-Xa Level POC ABG pH POC ABG pCO2 POC ABG pO2 VBG pH Potassium 3.5 L Chloride 93.1 L Carbon Dioxide 37 H BUN 27 H Glucose 226 H POC Glucose Lactic Acid Calcium Magnesium NT-Pro-B Natriuret Pep Total Protein 5.8 L Albumin 3.0 L TSH 08/17/17 08/18/17 08/18/17 21:48 04:00 05:23 WBC RBC Hgb 11.3 L Hct MCV MCH MCHC RDW [place] % (Auto) Seg Neutrophils % Seg Neuts % (Manual) Lymphocytes % (Manual) Monocytes % (Manual) Eosinophils % (Manual) Basophils % (Manual) Seg Neutrophils # Man Lymphocytes # (Manual) Monocytes # (Manual) Eosinophils # (Manual) Basophils # (Manual) PT 24.2 H INR 2.04 H D-Dimer 1693.79 H Heparin Anti-Xa Level POC ABG pH POC ABG pCO2 POC ABG pO2 VBG pH Potassium Chloride Carbon Dioxide BUN Glucose POC Glucose Lactic Acid Calcium Magnesium NT-Pro-B Natriuret Pep Total Protein Albumin TSH 08/18/17 08/19/17 08/20/17 05:23 04:30 03:00 WBC RBC Hgb 11.7 L Hct MCV MCH MCHC RDW [place] % (Auto) Seg Neutrophils % Seg Neuts % (Manual) Lymphocytes % (Manual) Monocytes % (Manual) Eosinophils % (Manual) Basophils % (Manual) Seg Neutrophils # Man Lymphocytes # (Manual) Monocytes # (Manual) Eosinophils # (Manual) Basophils # (Manual) PT 20.0 H INR 1.60 H D-Dimer Heparin Anti-Xa Level POC ABG pH POC ABG pCO2 POC ABG pO2 VBG pH Potassium Chloride 86.8 L Carbon Dioxide 38 H BUN 33 H Glucose 355 H POC Glucose Lactic Acid Calcium Magnesium NT-Pro-B Natriuret Pep Total Protein Albumin TSH 08/20/17 08/20/17 08/20/17 03:00 03:00 17:37 WBC RBC Hgb Hct MCV MCH MCHC RDW [place] % (Auto) Seg Neutrophils % Seg Neuts % (Manual) Lymphocytes % (Manual) Monocytes % (Manual) Eosinophils % (Manual) Basophils % (Manual) Seg Neutrophils # Man Lymphocytes # (Manual) Monocytes # (Manual) Eosinophils # (Manual) Basophils # (Manual) PT 22.7 H INR 1.87 H D-Dimer Heparin Anti-Xa Level POC ABG pH POC ABG pCO2 POC ABG pO2 VBG pH Potassium Chloride 91.3 L Carbon Dioxide 38 H BUN 34 H Glucose 391 H POC Glucose 312 H Lactic Acid Calcium Magnesium NT-Pro-B Natriuret Pep Total Protein Albumin [facility] 08/20/17 08/21/17 08/21/17 22:34 06:40 08:22 WBC RBC Hgb Hct MCV MCH MCHC RDW [place] % (Auto) Seg Neutrophils % Seg Neuts % (Manual) Lymphocytes % (Manual) Monocytes % (Manual) Eosinophils % (Manual) Basophils % (Manual) Seg Neutrophils # Man Lymphocytes # (Manual) Monocytes # (Manual) Eosinophils # (Manual) Basophils # (Manual) PT 28.6 H INR 2.49 H D-Dimer Heparin Anti-Xa Level POC ABG pH POC ABG pCO2 POC ABG pO2 VBG pH Potassium Chloride Carbon Dioxide BUN Glucose POC Glucose 166 H 123 H Lactic Acid Calcium Magnesium NT-Pro-B Natriuret Pep Total Protein Albumin [facility] 08/21/17 08/21/17 08/21/17 12:29 17:08 21:17 WBC RBC Hgb Hct MCV MCH MCHC RDW [place] % (Auto) Seg Neutrophils % Seg Neuts % (Manual) Lymphocytes % (Manual) Monocytes % (Manual) Eosinophils % (Manual) Basophils % (Manual) Seg Neutrophils # Man Lymphocytes # (Manual) Monocytes # (Manual) Eosinophils # (Manual) Basophils # (Manual) PT INR D-Dimer Heparin Anti-Xa Level POC ABG pH POC ABG pCO2 POC ABG pO2 VBG pH Potassium Chloride Carbon Dioxide BUN Glucose POC Glucose 182 H 135 H 145 H Lactic Acid Calcium Magnesium NT-Pro-B Natriuret Pep Total Protein Albumin [facility] 08/22/17 08/22/17 08/22/17 04:00 05:00 08:35 WBC RBC Hgb Hct MCV MCH MCHC RDW [place] % (Auto) Seg Neutrophils % Seg Neuts % (Manual) Lymphocytes % (Manual) Monocytes % (Manual) Eosinophils % (Manual) Basophils % (Manual) Seg Neutrophils # Man Lymphocytes # (Manual) Monocytes # (Manual) Eosinophils # (Manual) Basophils # (Manual) PT 27.6 H INR 2.38 H D-Dimer Heparin Anti-Xa Level POC ABG pH POC ABG pCO2 POC ABG pO2 VBG pH Potassium Chloride 90.8 L Carbon Dioxide 40 H BUN 30 H Glucose 149 H POC Glucose 132 H Lactic Acid Calcium Magnesium 2.40 H NT-Pro-B Natriuret Pep Total Protein Albumin [facility] 08/22/17 08/22/17 08/22/17 13:54 16:38 21:07 WBC RBC Hgb Hct MCV MCH MCHC RDW [place] % (Auto) Seg Neutrophils % Seg Neuts % (Manual) Lymphocytes % (Manual) Monocytes % (Manual) Eosinophils % (Manual) Basophils % (Manual) Seg Neutrophils # Man Lymphocytes # (Manual) Monocytes # (Manual) Eosinophils # (Manual) Basophils # (Manual) PT INR D-Dimer Heparin Anti-Xa Level POC ABG pH POC ABG pCO2 POC ABG pO2 VBG pH Potassium Chloride Carbon Dioxide BUN Glucose POC Glucose 189 H 192 H 181 H Lactic Acid Calcium Magnesium NT-Pro-B Natriuret Pep Total Protein Albumin [facility] 08/23/17 08/23/17 08/23/17 05:25 08:18 12:27 WBC RBC Hgb Hct MCV MCH MCHC RDW [place] % (Auto) Seg Neutrophils % Seg Neuts % (Manual) Lymphocytes % (Manual) Monocytes % (Manual) Eosinophils % (Manual) Basophils % (Manual) Seg Neutrophils # Man Lymphocytes # (Manual) Monocytes # (Manual) Eosinophils # (Manual) Basophils # (Manual) PT 28.2 H INR 2.45 H D-Dimer Heparin Anti-Xa Level POC ABG pH POC ABG pCO2 POC ABG pO2 VBG pH Potassium Chloride Carbon Dioxide BUN Glucose POC Glucose 168 H 109 H Lactic Acid Calcium Magnesium NT-Pro-B Natriuret Pep Total Protein Albumin [facility] 08/23/17 08/24/17 08/24/17 16:49 08:00 08:24 WBC RBC Hgb Hct MCV MCH MCHC [place]DW [place] % (Auto) Seg Neutrophils % Seg Neuts % (Manual) Lymphocytes % (Manual) Monocytes % (Manual) Eosinophils % (Manual) Basophils % (Manual) Seg Neutrophils # Man Lymphocytes # (Manual) Monocytes # (Manual) Eosinophils # (Manual) Basophils # (Manual) PT 29.3 H INR 2.57 H D-Dimer Heparin Anti-Xa Level POC ABG pH POC ABG pCO2 POC ABG pO2 VBG pH Potassium Chloride Carbon Dioxide BUN Glucose POC Glucose 117 H 144 H Lactic Acid Calcium Magnesium NT-Pro-B Natriuret Pep Total Protein Albumin [facility] 08/24/17 12:57 WBC RBC Hgb Hct MCV MCH MCHC [place] % (Auto) Seg Neutrophils % Seg Neuts % (Manual) Lymphocytes % (Manual) Monocytes % (Manual) Eosinophils % (Manual) Basophils % (Manual) Seg Neutrophils # Man Lymphocytes # (Manual) Monocytes # (Manual) Eosinophils # (Manual) Basophils # (Manual) PT INR D-Dimer Heparin Anti-Xa Level POC ABG pH POC ABG pCO2 POC ABG pO2 VBG pH Potassium Chloride Carbon Dioxide BUN Glucose POC Glucose 113 H Lactic Acid Calcium Magnesium NT-Pro-B Natriuret Pep Total Protein Albumin TSH
[2017-08-24] MEDS: COUMADIN PO SCH (18:00)
--- NOTE | 2017-08-24 20:00 | Progress Note ---
Assessment and Plan Assessment and plan: --Main goal of the treatment is weight loss Patient strongly encouraged dietary modification, exercise as tolerated and weight reduction Patient would benefit by, outpatient bariatric surgical evaluation for weight reduction program when medically stable. --Continue wound care and lymphedema care inpatient and outpatient post discharge --Acute on chronic hypoxic, hypercapnic respiratory failure on high flow oxygen, BIPAP prn, continue nebulizers , off steroids , --Morbid obesity; BMI of 88; counseling done, -- obstructive sleep apnea/obesity hypoventilation syndrome/morbid obesity Continue, BiPAP at night, out patient sleep study pulmonary follow-up upon discharge --Acute systolic congestive heart failure ; EF 40-45% with severe pulmonary hypertension Continue diuretics Lasix 40 every 8 hours, input output monitoring, fluid restriction --Severe pulmonary hypertension on echocardiogram; diuretics, fluid restriction , --Left lower lobe pneumonia/atelectasis/community-acquired; resolved, completed treatment --Chronic massive lymphedema; supportive care, wound care and lymphedema care as needed --Empiric anticoagulation on Coumadin, therapeutic INR, target INR 2-3 --Discharge planning. Case management, possible home with home health when patient is stable --Physical therapy occupational therapy as tolerated Plan of care reviewed with the patient family member and his nurse as well as the case management History Interval history: Patient seen and evaluated medical records reviewed Clinically no change Patient feels better no new complaints On high flow oxygen, saturating well Vital signs reviewed Hospitalist Physical - Constitutional Vitals: Temp Pulse Resp BP Pulse Ox 98 F 87 20 125/75 100 08/24/17 12:30 08/24/17 12:30 08/24/17 12:30 08/24/17 12:30 08/24/17 12:30 General appearance: Present: no acute distress, well-nourished, obese (morbidly obese) - EENT Eyes: Present: PERRL, EOM intact - Neck Neck: Present: supple, normal ROM - Respiratory Respiratory effort: normal Respiratory: bilateral: diminished, rhonchi, negative: rales, wheezing - Cardiovascular Rhythm: regular Heart Sounds: Present: S1 & S2 - Extremities Extremities: no ischemia, abnormal (morbidly obese and edematous) Extremity abnormal: edema (chronic lymphedema) - Abdominal General gastrointestinal: soft, non-tender, non-distended, normal bowel sounds - Integumentary Integumentary: Present: clear, warm - Psychiatric Psychiatric: appropriate mood/affect, cooperative - Neurologic Neurologic: CNII-XII intact, moves all extremities Results - Labs CBC & Chem 7: 08/22/17 04:00 08/22/17 04:00 Labs: Laboratory Last Values WBC 7.6 K/mm3 (4.5-11.0) 08/16/17 14:04 RBC 5.10 M/mm3 (3.65-5.03) H 08/16/17 14:04 Hgb 12.2 gm/dl (11.8-15.2) 08/22/17 04:00 Hct 40.4 % (35.5-45.6) 08/22/17 04:00 MCV 75 fl (84-94) L 08/16/17 14:04 MCH 22 pg (28-32) L 08/16/17 14:04 MCHC 29 % (32-34) L 08/16/17 14:04 RDW 20.9 % (13.2-15.2) H 08/16/17 14:04 Plt Count 179 K/mm3 (140-440) 08/22/17 04:00 Lymph % (Auto) 18.2 % (13.4-35.0) 08/12/17 04:31 Maury % (Auto) 7.0 % (0.0-7.3) 08/12/17 04:31 Eos % (Auto) 4.0 % (0.0-4.3) 08/12/17 04:31 Baso % (Auto) 0.8 % (0.0-1.8) 08/12/17 04:31 Lymph # 1.5 K/mm3 (1.2-5.4) 08/12/17 04:31 Maury # 0.6 K/mm3 (0.0-0.8) 08/12/17 04:31 Eos # 0.3 K/mm3 (0.0-0.4) 08/12/17 04:31 Baso # 0.1 K/mm3 (0.0-0.1) 08/12/17 04:31 Add Manual Diff Complete 08/09/17 10:57 Total Counted 100 08/09/17 10:57 Seg Neutrophils % 70.0 % (40.0-70.0) 08/12/17 04:31 Seg Neuts % (Manual) 64.0 % (40.0-70.0) 08/09/17 10:57 Band Neutrophils % 4.0 % 08/09/17 10:57 Lymphocytes % (Manual) 15.0 % (13.4-35.0) 08/09/17 10:57 Reactive Lymphs % (Man) 3.0 % 08/09/17 10:57 Monocytes % (Manual) 9.0 % (0.0-7.3) H 08/09/17 10:57 Eosinophils % (Manual) 5.0 % (0.0-4.3) H 08/09/17 10:57 Basophils % (Manual) 0 % (0.0-1.8) 08/09/17 10:57 Metamyelocytes % 0 % 08/09/17 10:57 Myelocytes % 0 % 08/09/17 10:57 Promyelocytes % 0 % 08/09/17 10:57 Blast Cells % 0 % 08/09/17 10:57 Nucleated RBC % Not Reportable 08/09/17 10:57 Seg Neutrophils # 5.9 K/mm3 (1.8-7.7) 08/12/17 04:31 Seg Neutrophils # Man 9.3 K/mm3 (1.8-7.7) H 08/09/17 10:57 Band Neutrophils # 0.6 K/mm3 08/09/17 10:57 Lymphocytes # (Manual) 2.2 K/mm3 (1.2-5.4) 08/09/17 10:57 Abs React Lymphs (Man) 0.4 K/mm3 08/09/17 10:57 Monocytes # (Manual) 1.3 K/mm3 (0.0-0.8) H 08/09/17 10:57 Eosinophils # (Manual) 0.7 K/mm3 (0.0-0.4) H 08/09/17 10:57 Basophils # (Manual) 0.0 K/mm3 (0.0-0.1) 08/09/17 10:57 Metamyelocytes # 0.0 K/mm3 08/09/17 10:57 Myelocytes # 0.0 K/mm3 08/09/17 10:57 Promyelocytes # 0.0 K/mm3 08/09/17 10:57 Blast Cells # 0.0 K/mm3 08/09/17 10:57 WBC Morphology Not Reportable 08/09/17 10:57 Hypersegmented Neuts Not Reportable 08/09/17 10:57 Hyposegmented Neuts Not Reportable 08/09/17 10:57 Hypogranular Neuts Not Reportable 08/09/17 10:57 Smudge Cells Not Reportable 08/09/17 10:57 Toxic Granulation Not Reportable 08/09/17 10:57 Toxic Vacuolation Not Reportable 08/09/17 10:57 Dohle Bodies Not Reportable 08/09/17 10:57 Pelger-Huet Anomaly Not Reportable 08/09/17 10:57 Noa Rods Not Reportable 08/09/17 10:57 Platelet Estimate Consistent w auto 08/09/17 10:57 Clumped Platelets Not Reportable 08/09/17 10:57 Plt Clumps, EDTA Not Reportable 08/09/17 10:57 Large Platelets Not Reportable 08/09/17 10:57 Giant Platelets Few 08/09/17 10:57 Platelet Satelliting Not Reportable 08/09/17 10:57 Plt Morphology Comment Not Reportable 08/09/17 10:57 RBC Morphology Not Reportable 08/09/17 10:57 Dimorphic RBCs Not Reportable 08/09/17 10:57 Polychromasia Not Reportable 08/09/17 10:57 Hypochromasia 1+ 08/09/17 10:57 Poikilocytosis 1+ 08/09/17 10:57 Anisocytosis 1+ 08/09/17 10:57 Microcytosis 1+ 08/09/17 10:57 Macrocytosis Not Reportable 08/09/17 10:57 Spherocytes Not Reportable 08/09/17 10:57 Pappenheimer Bodies Not Reportable 08/09/17 10:57 Sickle Cells Not Reportable 08/09/17 10:57 Target Cells Not Reportable 08/09/17 10:57 Tear Drop Cells Not Reportable 08/09/17 10:57 Ovalocytes Few 08/09/17 10:57 Stomatocytes 1+ 08/09/17 10:57 Helmet Cells Not Reportable 08/09/17 10:57 Harley-Tickfaw Bodies Not Reportable 08/09/17 10:57 Micanopy Rings Not Reportable 08/09/17 10:57 Mignon Cells Not Reportable 08/09/17 10:57 Bite Cells Not Reportable 08/09/17 10:57 Crenated Cell Not Reportable 08/09/17 10:57 Elliptocytes Not Reportable 08/09/17 10:57 Acanthocytes (Spur) Not Reportable 08/09/17 10:57 Rouleaux Not Reportable 08/09/17 10:57 Hemoglobin C Crystals Not Reportable 08/09/17 10:57 Schistocytes Not Reportable 08/09/17 10:57 Malaria parasites Not Reportable 08/09/17 10:57 Cuco Bodies Not Reportable 08/09/17 10:57 Hem Pathologist Commnt No 08/09/17 10:57 PT 29.3 Sec. (12.2-14.9) H 08/24/17 08:00 INR 2.57 (0.87-1.13) H 08/24/17 08:00 APTT 29.0 Sec. (24.2-36.6) 08/14/17 10:36 D-Dimer 1693.79 ng/mlDDU (0-234) H 08/17/17 21:48 Heparin Anti-Xa Level 0.43 U.I./ml (0.3-0.7) 08/17/17 05:58 POC ABG pH 7.471 (7.35-7.45) H 08/15/17 04:20 POC ABG pCO2 53.8 (35-45) H 08/15/17 04:20 POC ABG pO2 81 (80-105) 08/15/17 04:20 POC ABG HCO3 39.3 08/15/17 04:20 POC ABG Total CO2 41 08/15/17 04:20 POC ABG O2 Sat 96 08/15/17 04:20 POC ABG Base Excess 16 08/15/17 04:20 VBG pH 7.463 (7.320-7.420) H 08/07/17 16:58 FiO2 100 % 08/15/17 04:20 Sodium 145 mmol/L (137-145) 08/22/17 04:00 Potassium 3.6 mmol/L (3.6-5.0) 08/22/17 04:00 Chloride 90.8 mmol/L (98-107) L 08/22/17 04:00 Carbon Dioxide 40 mmol/L (22-30) H 08/22/17 04:00 Anion Gap 18 mmol/L 08/22/17 04:00 BUN 30 mg/dL (9-20) H 08/22/17 04:00 Creatinine 0.9 mg/dL (0.8-1.5) 08/22/17 04:00 Estimated GFR > 60 ml/min 08/22/17 04:00 BUN/Creatinine Ratio 33 % 08/22/17 04:00 Glucose 149 mg/dL (75-100) H 08/22/17 04:00 POC Glucose 145 (70-105) H 08/24/17 16:23 Lactic Acid 0.90 mmol/L (0.7-2.0) 08/08/17 06:01 Calcium 9.1 mg/dL (8.4-10.2) 08/22/17 04:00 Magnesium 2.40 mg/dL (1.7-2.3) H 08/22/17 04:00 Total Bilirubin 0.70 mg/dL (0.1-1.2) 08/16/17 14:04 Direct Bilirubin 0.2 mg/dL (0-0.2) 08/11/17 07:12 Indirect Bilirubin 0.3 mg/dL 08/11/17 07:12 AST 11 units/L (5-40) 08/16/17 14:04 ALT 10 units/L (7-56) 08/16/17 14:04 Alkaline Phosphatase 68 units/L (35-129) 08/16/17 14:04 NT-Pro-B Natriuret Pep 6070 pg/mL (0-450) H 08/14/17 10:36 Total Protein 5.8 g/dL (6.3-8.2) L 08/16/17 14:04 Albumin 3.0 g/dL (3.9-5) L 08/16/17 14:04 Albumin/Globulin Ratio 1.1 % 08/16/17 14:04 TSH 4.780 mlU/mL (0.270-4.200) H 08/11/17 07:12 Free T4 0.86 ng/dL (0.76-1.46) 08/11/17 07:12
[2017-08-25] MEDS: LASIX IV SCH ×3 (01:29→18:31)
[2017-08-25 06:10] LABS: INR 2.55 (0.87-1.13)
[2017-08-25] MEDS: NOVOLOG SUB-Q SCH ×4 (08:40→22:08)
[2017-08-25] MEDS: K-DUR PO SCH (10:54)
--- NOTE | 2017-08-25 15:54 | Progress Note ---
Assessment and Plan Imp: 1. RUSSEL 2. OHS 3. Morbid obesity 4. A/C respiratory failure, hypoxia and hypercapnea 5. NICMP 6. A/C systolic CHF 7. Pulm HTN 2/2 above Rec: 1. Diuresis 2. BIPAP QHS and prn 3. Agree w/ home NIV 4. Weight loss 5. Wean O2 to keep sats 88-94% 6. Will follow; complex patient/decision-making Plan of care reviewed with patient, he understands/agrees Subjective Date of service: 08/25/17 Principal diagnosis: heart failure, hypercapnic respiratory failure, severe morbid obesity Interval history: No events. Remains on HFNC at 15LPM and 50%. SOB better. No new complaints. Active Medications Acetaminophen (Tylenol) 650 mg PO Q4H PRN PRN Reason: /Fever >100.5/ARENAS Last Admin: 08/10/17 09:28 Dose: 650 mg Albuterol (Proventil) 2.5 mg IH Q4HRT PRN PRN Reason: Shortness Of Breath Last Admin: 08/19/17 20:22 Dose: 2.5 mg Bisacodyl (Dulcolax) 10 mg WI QDAY PRN PRN Reason: Constipation unrelieved by MOM Furosemide (Lasix) 40 mg IV Q8H [facility] Last Admin: 08/25/17 10:54 Dose: 40 mg Guaifenesin (Guaifenesin Dm Syrup) 10 ml PO Q6H PRN PRN Reason: Cough Last Admin: 08/23/17 22:33 Dose: 10 ml Ibuprofen (Motrin) 600 mg PO Q8H PRN PRN Reason: Pain, Mild (1-3) Last Admin: 08/17/17 17:30 Dose: 600 mg Insulin Aspart (Novolog) 0 units SUB-Q ACHS [facility] PRN Reason: Protocol Last Admin: 08/25/17 12:39 Dose: Not Given Magnesium Hydroxide (Milk Of Magnesia) 30 ml PO Q4H PRN PRN Reason: Constipation Ondansetron HCl (Zofran) 4 mg IV Q8H PRN PRN Reason: N/V unrelieved by Reglan Last Admin: 08/07/17 23:02 Dose: 4 mg Potassium Chloride (K-Dur) 20 meq PO QDAY [facility] Last Admin: 08/25/17 10:54 Dose: 20 meq Warfarin Sodium (Coumadin Pharmacy To Dose) 1 each PO PKCONSULT [facility] Warfarin Sodium (Coumadin) 7.5 mg PO DAILY@1700 MICHELLE Last Admin: 08/24/17 18:00 Dose: 7.5 mg Objective Vital Signs - 12hr 08/25/17 08/25/17 08/25/17 05:05 08:00 09:44 Temperature 97.6 F 97.5 F L Pulse Rate 78 88 Pulse Rate [ From Monitor] Respiratory 18 20 Rate Blood Pressure 125/78 130/64 [Left] O2 Sat by Pulse 98 95 95 Oximetry 08/25/17 08/25/17 10:00 13:12 Temperature 97.6 F Pulse Rate 81 75 Pulse Rate [ 88 From Monitor] Respiratory 22 20 Rate Blood Pressure 133/66 [Left] O2 Sat by Pulse 95 Oximetry Constitutional: no acute distress, alert Eyes: non-icteric ENT: oropharynx moist Neck: other (extremely large in circumference) Effort: normal Ascultation: Bilateral: clear Cardiovascular: regular rate and rhythm (no mrg) Gastrointestinal: normoactive bowel sounds, soft, non-tender, non-distended, other (obese) Integumentary: other (chronic venous stasis changes LEs) Extremities: no cyanosis, edema (lymphedema), other (bilateral lymphedema with chronic changes) Neurologic: normal mental status, non-focal exam, pupils equal and round, CN II- XII normal Psychiatric: mood appropriate, affect normal CBC and BMP: 08/22/17 04:00 08/22/17 04:00 ABG, PT/INR, D-dimer: ABG POC ABG pH 7.471 (7.35-7.45) H 08/15/17 04:20 POC ABG pCO2 53.8 (35-45) H 08/15/17 04:20 POC ABG pO2 81 (80-105) 08/15/17 04:20 POC ABG HCO3 39.3 08/15/17 04:20 POC ABG Total CO2 41 08/15/17 04:20 POC ABG O2 Sat 96 08/15/17 04:20 PT/INR, D-dimer PT 29.1 Sec. (12.2-14.9) H 08/25/17 05:00 INR 2.55 (0.87-1.13) H 08/25/17 05:00 D-Dimer 1693.79 ng/mlDDU (0-234) H 08/17/17 21:48 Abnormal lab findings: Abnormal Labs 08/07/17 08/07/17 08/07/17 16:58 16:58 16:58 WBC 16.1 H RBC 5.44 H Hgb Hct MCV 74 L MCH 22 L MCHC 29 L RDW 21.7 H [place] % (Auto) Seg Neutrophils % Seg Neuts % (Manual) 87.0 H Lymphocytes % (Manual) 7.0 L Monocytes % (Manual) Eosinophils % (Manual) Basophils % (Manual) 2.0 H Seg Neutrophils # Man 14.0 H Lymphocytes # (Manual) 1.1 L Monocytes # (Manual) Eosinophils # (Manual) Basophils # (Manual) 0.3 H PT 16.2 H INR 1.23 H D-Dimer Heparin Anti-Xa Level POC ABG pH POC ABG pCO2 POC ABG pO2 VBG pH Potassium Chloride 96.2 L Carbon Dioxide 31 H BUN Glucose POC Glucose Lactic Acid Calcium Magnesium NT-Pro-B Natriuret Pep Total Protein 5.8 L Albumin 3.0 L TSH 08/07/17 08/07/17 08/07/17 16:58 16:58 16:58 WBC RBC Hgb Hct MCV MCH MCHC RDW [place] % (Auto) Seg Neutrophils % Seg Neuts % (Manual) Lymphocytes % (Manual) Monocytes % (Manual) Eosinophils % (Manual) Basophils % (Manual) Seg Neutrophils # Man Lymphocytes # (Manual) Monocytes # (Manual) Eosinophils # (Manual) Basophils # (Manual) PT INR D-Dimer Heparin Anti-Xa Level POC ABG pH POC ABG pCO2 POC ABG pO2 VBG pH 7.463 H Potassium Chloride Carbon Dioxide BUN Glucose POC Glucose Lactic Acid 2.10 H* Calcium Magnesium NT-Pro-B Natriuret Pep 2205 H Total Protein Albumin TSH 08/09/17 08/09/17 08/10/17 10:57 13:37 08:04 WBC 14.5 H RBC Hgb 10.8 L 10.8 L Hct 35.1 L MCV 74 L 76 L MCH 23 L 23 L MCHC 31 L 30 L RDW 21.2 H 21.0 H [place] % (Auto) Seg Neutrophils % 75.4 H Seg Neuts % (Manual) Lymphocytes % (Manual) Monocytes % (Manual) 9.0 H Eosinophils % (Manual) 5.0 H Basophils % (Manual) Seg Neutrophils # Man 9.3 H Lymphocytes # (Manual) Monocytes # (Manual) 1.3 H Eosinophils # (Manual) 0.7 H Basophils # (Manual) PT INR D-Dimer Heparin Anti-Xa Level POC ABG pH POC ABG pCO2 POC ABG pO2 VBG pH Potassium Chloride 96.9 L Carbon Dioxide 32 H BUN Glucose POC Glucose Lactic Acid Calcium 8.3 L Magnesium NT-Pro-B Natriuret Pep Total Protein Albumin TSH 08/10/17 08/10/17 08/10/17 08:04 08:04 14:50 WBC RBC Hgb Hct MCV MCH MCHC RDW [place] % (Auto) Seg Neutrophils % Seg Neuts % (Manual) Lymphocytes % (Manual) Monocytes % (Manual) Eosinophils % (Manual) Basophils % (Manual) Seg Neutrophils # Man Lymphocytes # (Manual) Monocytes # (Manual) Eosinophils # (Manual) Basophils # (Manual) PT INR D-Dimer Heparin Anti-Xa Level POC ABG pH POC ABG pCO2 65.9 H POC ABG pO2 VBG pH Potassium Chloride Carbon Dioxide 32 H BUN Glucose 115 H POC Glucose Lactic Acid Calcium Magnesium NT-Pro-B Natriuret Pep Total Protein Albumin TSH 4.900 H 08/11/17 08/11/17 08/11/17 07:12 07:12 07:12 WBC RBC Hgb 10.3 L Hct MCV 76 L MCH 22 L MCHC 29 L RDW 21.4 H [place] % (Auto) 8.8 H Seg Neutrophils % Seg Neuts % (Manual) Lymphocytes % (Manual) Monocytes % (Manual) Eosinophils % (Manual) Basophils % (Manual) Seg Neutrophils # Man Lymphocytes # (Manual) Monocytes # (Manual) Eosinophils # (Manual) Basophils # (Manual) PT INR D-Dimer Heparin Anti-Xa Level POC ABG pH POC ABG pCO2 POC ABG pO2 VBG pH Potassium Chloride Carbon Dioxide 35 H BUN Glucose 105 H POC Glucose Lactic Acid Calcium Magnesium NT-Pro-B Natriuret Pep Total Protein 5.8 L Albumin 3.1 L TSH 4.780 H 08/12/17 08/12/17 08/13/17 04:31 04:31 11:34 WBC RBC Hgb 10.7 L Hct 35.3 L MCV 76 L MCH 23 L MCHC 30 L RDW 21.3 H [place] % (Auto) Seg Neutrophils % Seg Neuts % (Manual) Lymphocytes % (Manual) Monocytes % (Manual) Eosinophils % (Manual) Basophils % (Manual) Seg Neutrophils # Man Lymphocytes # (Manual) Monocytes # (Manual) Eosinophils # (Manual) Basophils # (Manual) PT INR D-Dimer Heparin Anti-Xa Level POC ABG pH POC ABG pCO2 61.1 H POC ABG pO2 57 L VBG pH Potassium Chloride 95.8 L Carbon Dioxide 33 H BUN Glucose POC Glucose Lactic Acid Calcium Magnesium NT-Pro-B Natriuret Pep Total Protein 5.8 L Albumin 3.0 L TSH 08/14/17 08/14/17 08/14/17 10:36 10:36 10:36 WBC RBC Hgb 10.7 L Hct MCV MCH MCHC RDW [place] % (Auto) Seg Neutrophils % Seg Neuts % (Manual) Lymphocytes % (Manual) Monocytes % (Manual) Eosinophils % (Manual) Basophils % (Manual) Seg Neutrophils # Man Lymphocytes # (Manual) Monocytes # (Manual) Eosinophils # (Manual) Basophils # (Manual) PT 15.8 H INR 1.20 H D-Dimer Heparin Anti-Xa Level POC ABG pH POC ABG pCO2 POC ABG pO2 VBG pH Potassium Chloride Carbon Dioxide BUN Glucose POC Glucose Lactic Acid Calcium Magnesium NT-Pro-B Natriuret Pep 6070 H Total Protein Albumin TSH 08/14/17 08/14/17 08/14/17 17:23 20:37 23:18 WBC RBC Hgb Hct MCV MCH MCHC RDW [place] % (Auto) Seg Neutrophils % Seg Neuts % (Manual) Lymphocytes % (Manual) Monocytes % (Manual) Eosinophils % (Manual) Basophils % (Manual) Seg Neutrophils # Man Lymphocytes # (Manual) Monocytes # (Manual) Eosinophils # (Manual) Basophils # (Manual) PT INR D-Dimer Heparin Anti-Xa Level < 0.10 L POC ABG pH 7.566 H 7.494 H POC ABG pCO2 51.6 H POC ABG pO2 45 L 52 L VBG pH Potassium Chloride Carbon Dioxide BUN Glucose POC Glucose Lactic Acid Calcium Magnesium NT-Pro-B Natriuret Pep Total Protein Albumin TSH 08/15/17 08/15/17 08/15/17 04:15 04:20 08:26 WBC RBC Hgb Hct MCV MCH MCHC RDW [place] % (Auto) Seg Neutrophils % Seg Neuts % (Manual) Lymphocytes % (Manual) Monocytes % (Manual) Eosinophils % (Manual) Basophils % (Manual) Seg Neutrophils # Man Lymphocytes # (Manual) Monocytes # (Manual) Eosinophils # (Manual) Basophils # (Manual) PT 16.3 H INR 1.24 H D-Dimer Heparin Anti-Xa Level 0.12 L POC ABG pH 7.471 H POC ABG pCO2 53.8 H POC ABG pO2 VBG pH Potassium Chloride Carbon Dioxide BUN Glucose POC Glucose Lactic Acid Calcium Magnesium NT-Pro-B Natriuret Pep Total Protein Albumin [facility] 08/15/17 08/16/17 08/16/17 22:00 05:25 05:25 WBC RBC Hgb 11.1 L Hct MCV MCH MCHC RDW [place] % (Auto) Seg Neutrophils % Seg Neuts % (Manual) Lymphocytes % (Manual) Monocytes % (Manual) Eosinophils % (Manual) Basophils % (Manual) Seg Neutrophils # Man Lymphocytes # (Manual) Monocytes # (Manual) Eosinophils # (Manual) Basophils # (Manual) PT 20.1 H INR 1.61 H D-Dimer Heparin Anti-Xa Level 0.17 L 0.28 L POC ABG pH POC ABG pCO2 POC ABG pO2 VBG pH Potassium Chloride Carbon Dioxide BUN Glucose POC Glucose Lactic Acid Calcium Magnesium NT-Pro-B Natriuret Pep Total Protein Albumin [facility] 08/16/17 08/16/17 08/17/17 14:04 14:04 05:58 WBC RBC 5.10 H Hgb 11.2 L Hct MCV 75 L MCH 22 L MCHC 29 L RDW 20.9 H [place] % (Auto) Seg Neutrophils % Seg Neuts % (Manual) Lymphocytes % (Manual) Monocytes % (Manual) Eosinophils % (Manual) Basophils % (Manual) Seg Neutrophils # Man Lymphocytes # (Manual) Monocytes # (Manual) Eosinophils # (Manual) Basophils # (Manual) PT 34.7 H INR 3.20 H D-Dimer Heparin Anti-Xa Level POC ABG pH POC ABG pCO2 POC ABG pO2 VBG pH Potassium 3.5 L Chloride 93.1 L Carbon Dioxide 37 H BUN 27 H Glucose 226 H POC Glucose Lactic Acid Calcium Magnesium NT-Pro-B Natriuret Pep Total Protein 5.8 L Albumin 3.0 L [facility] 08/17/17 08/18/17 08/18/17 21:48 04:00 05:23 WBC RBC Hgb 11.3 L Hct MCV MCH MCHC RDW [place] % (Auto) Seg Neutrophils % Seg Neuts % (Manual) Lymphocytes % (Manual) Monocytes % (Manual) Eosinophils % (Manual) Basophils % (Manual) Seg Neutrophils # Man Lymphocytes # (Manual) Monocytes # (Manual) Eosinophils # (Manual) Basophils # (Manual) PT 24.2 H INR 2.04 H D-Dimer 1693.79 H Heparin Anti-Xa Level POC ABG pH POC ABG pCO2 POC ABG pO2 VBG pH Potassium Chloride Carbon Dioxide BUN Glucose POC Glucose Lactic Acid Calcium Magnesium NT-Pro-B Natriuret Pep Total Protein Albumin TSH 08/18/17 08/19/17 08/20/17 05:23 04:30 03:00 WBC RBC Hgb 11.7 L Hct MCV MCH MCHC RDW [place] % (Auto) Seg Neutrophils % Seg Neuts % (Manual) Lymphocytes % (Manual) Monocytes % (Manual) Eosinophils % (Manual) Basophils % (Manual) Seg Neutrophils # Man Lymphocytes # (Manual) Monocytes # (Manual) Eosinophils # (Manual) Basophils # (Manual) PT 20.0 H INR 1.60 H D-Dimer Heparin Anti-Xa Level POC ABG pH POC ABG pCO2 POC ABG pO2 VBG pH Potassium Chloride 86.8 L Carbon Dioxide 38 H BUN 33 H Glucose 355 H POC Glucose Lactic Acid Calcium Magnesium NT-Pro-B Natriuret Pep Total Protein Albumin TSH 08/20/17 08/20/17 08/20/17 03:00 03:00 17:37 WBC RBC Hgb Hct MCV MCH MCHC RDW [place] % (Auto) Seg Neutrophils % Seg Neuts % (Manual) Lymphocytes % (Manual) Monocytes % (Manual) Eosinophils % (Manual) Basophils % (Manual) Seg Neutrophils # Man Lymphocytes # (Manual) Monocytes # (Manual) Eosinophils # (Manual) Basophils # (Manual) PT 22.7 H INR 1.87 H D-Dimer Heparin Anti-Xa Level POC ABG pH POC ABG pCO2 POC ABG pO2 VBG pH Potassium Chloride 91.3 L Carbon Dioxide 38 H BUN 34 H Glucose 391 H POC Glucose 312 H Lactic Acid Calcium Magnesium NT-Pro-B Natriuret Pep Total Protein Albumin TSH 08/20/17 08/21/17 08/21/17 22:34 06:40 08:22 WBC RBC Hgb Hct MCV MCH MCHC RDW [place] % (Auto) Seg Neutrophils % Seg Neuts % (Manual) Lymphocytes % (Manual) Monocytes % (Manual) Eosinophils % (Manual) Basophils % (Manual) Seg Neutrophils # Man Lymphocytes # (Manual) Monocytes # (Manual) Eosinophils # (Manual) Basophils # (Manual) PT 28.6 H INR 2.49 H D-Dimer Heparin Anti-Xa Level POC ABG pH POC ABG pCO2 POC ABG pO2 VBG pH Potassium Chloride Carbon Dioxide BUN Glucose POC Glucose 166 H 123 H Lactic Acid Calcium Magnesium NT-Pro-B Natriuret Pep Total Protein Albumin TSH 08/21/17 08/21/17 08/21/17 12:29 17:08 21:17 WBC RBC Hgb Hct MCV MCH MCHC RDW [place] % (Auto) Seg Neutrophils % Seg Neuts % (Manual) Lymphocytes % (Manual) Monocytes % (Manual) Eosinophils % (Manual) Basophils % (Manual) Seg Neutrophils # Man Lymphocytes # (Manual) Monocytes # (Manual) Eosinophils # (Manual) Basophils # (Manual) PT INR D-Dimer Heparin Anti-Xa Level POC ABG pH POC ABG pCO2 POC ABG pO2 VBG pH Potassium Chloride Carbon Dioxide BUN Glucose POC Glucose 182 H 135 H 145 H Lactic Acid Calcium Magnesium NT-Pro-B Natriuret Pep Total Protein Albumin TSH 08/22/17 08/22/17 08/22/17 04:00 05:00 08:35 WBC RBC Hgb Hct MCV MCH MCHC RDW [place] % (Auto) Seg Neutrophils % Seg Neuts % (Manual) Lymphocytes % (Manual) Monocytes % (Manual) Eosinophils % (Manual) Basophils % (Manual) Seg Neutrophils # Man Lymphocytes # (Manual) Monocytes # (Manual) Eosinophils # (Manual) Basophils # (Manual) PT 27.6 H INR 2.38 H D-Dimer Heparin Anti-Xa Level POC ABG pH POC ABG pCO2 POC ABG pO2 VBG pH Potassium Chloride 90.8 L Carbon Dioxide 40 H BUN 30 H Glucose 149 H POC Glucose 132 H Lactic Acid Calcium Magnesium 2.40 H NT-Pro-B Natriuret Pep Total Protein Albumin TSH 08/22/17 08/22/17 08/22/17 13:54 16:38 21:07 WBC RBC Hgb Hct MCV MCH MCHC RDW [place] % (Auto) Seg Neutrophils % Seg Neuts % (Manual) Lymphocytes % (Manual) Monocytes % (Manual) Eosinophils % (Manual) Basophils % (Manual) Seg Neutrophils # Man Lymphocytes # (Manual) Monocytes # (Manual) Eosinophils # (Manual) Basophils # (Manual) PT INR D-Dimer Heparin Anti-Xa Level POC ABG pH POC ABG pCO2 POC ABG pO2 VBG pH Potassium Chloride Carbon Dioxide BUN Glucose POC Glucose 189 H 192 H 181 H Lactic Acid Calcium Magnesium NT-Pro-B Natriuret Pep Total Protein Albumin TSH 08/23/17 08/23/17 08/23/17 05:25 08:18 12:27 WBC RBC Hgb Hct MCV MCH MCHC RDW [place] % (Auto) Seg Neutrophils % Seg Neuts % (Manual) Lymphocytes % (Manual) Monocytes % (Manual) Eosinophils % (Manual) Basophils % (Manual) Seg Neutrophils # Man Lymphocytes # (Manual) Monocytes # (Manual) Eosinophils # (Manual) Basophils # (Manual) PT 28.2 H INR 2.45 H D-Dimer Heparin Anti-Xa Level POC ABG pH POC ABG pCO2 POC ABG pO2 VBG pH Potassium Chloride Carbon Dioxide BUN Glucose POC Glucose 168 H 109 H Lactic Acid Calcium Magnesium NT-Pro-B Natriuret Pep Total Protein Albumin TSH 08/23/17 08/24/17 08/24/17 16:49 08:00 08:24 WBC RBC Hgb Hct MCV MCH MCHC RDW [place] % (Auto) Seg Neutrophils % Seg Neuts % (Manual) Lymphocytes % (Manual) Monocytes % (Manual) Eosinophils % (Manual) Basophils % (Manual) Seg Neutrophils # Man Lymphocytes # (Manual) Monocytes # (Manual) Eosinophils # (Manual) Basophils # (Manual) PT 29.3 H INR 2.57 H D-Dimer Heparin Anti-Xa Level POC ABG pH POC ABG pCO2 POC ABG pO2 VBG pH Potassium Chloride Carbon Dioxide BUN Glucose POC Glucose 117 H 144 H Lactic Acid Calcium Magnesium NT-Pro-B Natriuret Pep Total Protein Albumin TSH 08/24/17 08/24/17 08/24/17 12:57 16:23 21:13 WBC RBC Hgb Hct MCV MCH MCHC RDW [place] % (Auto) Seg Neutrophils % Seg Neuts % (Manual) Lymphocytes % (Manual) Monocytes % (Manual) Eosinophils % (Manual) Basophils % (Manual) Seg Neutrophils # Man Lymphocytes # (Manual) Monocytes # (Manual) Eosinophils # (Manual) Basophils # (Manual) PT INR D-Dimer Heparin Anti-Xa Level POC ABG pH POC ABG pCO2 POC ABG pO2 VBG pH Potassium Chloride Carbon Dioxide BUN Glucose POC Glucose 113 H 145 H 209 H Lactic Acid Calcium Magnesium NT-Pro-B Natriuret Pep Total Protein Albumin TSH 08/25/17 05:00 WBC RBC Hgb Hct MCV MCH MCHC RDW [place] % (Auto) Seg Neutrophils % Seg Neuts % (Manual) Lymphocytes % (Manual) Monocytes % (Manual) Eosinophils % (Manual) Basophils % (Manual) Seg Neutrophils # Man Lymphocytes # (Manual) Monocytes # (Manual) Eosinophils # (Manual) Basophils # (Manual) PT 29.1 H INR 2.55 H D-Dimer Heparin Anti-Xa Level POC ABG pH POC ABG pCO2 POC ABG pO2 VBG pH Potassium Chloride Carbon Dioxide BUN Glucose POC Glucose Lactic Acid Calcium Magnesium NT-Pro-B Natriuret Pep Total Protein Albumin TSH Chest x-ray: report reviewed, image reviewed
[2017-08-25] MEDS: COUMADIN PO SCH (18:31)
--- NOTE | 2017-08-25 19:40 | Progress Note ---
Assessment and Plan Assessment and plan: -- obstructive sleep apnea/obesity hypoventilation syndrome/morbid obesity Continue, BiPAP at night, out patient sleep study --Acute on chronic hypoxic, hypercapnic respiratory failure on high flow oxygen, BIPAP prn, continue nebulizers , off steroids , --Main goal of the treatment is weight loss Patient strongly encouraged dietary modification, exercise as tolerated and weight reduction Patient would benefit by, outpatient bariatric surgical evaluation for weight reduction program when medically stable. --Continue wound care and lymphedema care inpatient and outpatient post discharge --Morbid obesity; BMI of 88; counseling done, --Acute systolic congestive heart failure ; EF 40-45% with severe pulmonary hypertension Continue diuretics Lasix 40 every 8 hours, input output monitoring, fluid restriction --Severe pulmonary hypertension on echocardiogram; diuretics, fluid restriction , --Left lower lobe pneumonia/atelectasis/community-acquired; resolved, completed treatment --Chronic massive lymphedema; supportive care, wound care and lymphedema care as needed --Empiric anticoagulation on Coumadin, therapeutic INR, target INR 2-3 --Discharge planning. Case management, possible home with home health when patient is stable --Physical therapy occupational therapy as tolerated Plan of care reviewed with the patient family member and his nurse as well as the case management History Interval history: Patient seen and examined medical records reviewed No new complaints, Remains on high flow oxygen No new events reported by nursing staff Patient is relatively oriented 3 not in acute distress vital Signs reviewed Hospitalist Physical - Constitutional Vitals: Temp Pulse Resp BP Pulse Ox 97.6 F 89 20 117/66 95 08/25/17 17:26 08/25/17 17:26 08/25/17 17:26 08/25/17 17:26 08/25/17 17:26 General appearance: Present: no acute distress, well-nourished, obese (morbidly obese) - EENT Eyes: Present: PERRL, EOM intact - Neck Neck: Present: supple, normal ROM - Respiratory Respiratory effort: normal Respiratory: bilateral: diminished, rales, rhonchi, negative: wheezing - Cardiovascular Rhythm: regular Heart Sounds: Present: S1 & S2 - Extremities Extremities: no ischemia Extremity abnormal: edema, other (chronic lymphedema) - Abdominal General gastrointestinal: soft, non-tender, non-distended, normal bowel sounds, other (morbid obesity) - Integumentary Integumentary: Present: clear, warm - Psychiatric Psychiatric: appropriate mood/affect, cooperative - Neurologic Neurologic: CNII-XII intact, moves all extremities Results - Labs CBC & Chem 7: 08/22/17 04:00 08/22/17 04:00 Labs: Laboratory Last Values WBC 7.6 K/mm3 (4.5-11.0) 08/16/17 14:04 RBC 5.10 M/mm3 (3.65-5.03) H 08/16/17 14:04 Hgb 12.2 gm/dl (11.8-15.2) 08/22/17 04:00 Hct 40.4 % (35.5-45.6) 08/22/17 04:00 MCV 75 fl (84-94) L 08/16/17 14:04 MCH 22 pg (28-32) L 08/16/17 14:04 MCHC 29 % (32-34) L 08/16/17 14:04 RDW 20.9 % (13.2-15.2) H 08/16/17 14:04 Plt Count 179 K/mm3 (140-440) 08/22/17 04:00 Lymph % (Auto) 18.2 % (13.4-35.0) 08/12/17 04:31 [place] % (Auto) 7.0 % (0.0-7.3) 08/12/17 04:31 Eos % (Auto) 4.0 % (0.0-4.3) 08/12/17 04:31 Baso % (Auto) 0.8 % (0.0-1.8) 08/12/17 04:31 Lymph # 1.5 K/mm3 (1.2-5.4) 08/12/17 04:31 [place] # 0.6 K/mm3 (0.0-0.8) 08/12/17 04:31 Eos # 0.3 K/mm3 (0.0-0.4) 08/12/17 04:31 Baso # 0.1 K/mm3 (0.0-0.1) 08/12/17 04:31 Add Manual Diff Complete 08/09/17 10:57 Total Counted 100 08/09/17 10:57 Seg Neutrophils % 70.0 % (40.0-70.0) 08/12/17 04:31 Seg Neuts % (Manual) 64.0 % (40.0-70.0) 08/09/17 10:57 Band Neutrophils % 4.0 % 08/09/17 10:57 Lymphocytes % (Manual) 15.0 % (13.4-35.0) 08/09/17 10:57 Reactive Lymphs % (Man) 3.0 % 08/09/17 10:57 Monocytes % (Manual) 9.0 % (0.0-7.3) H 08/09/17 10:57 Eosinophils % (Manual) 5.0 % (0.0-4.3) H 08/09/17 10:57 Basophils % (Manual) 0 % (0.0-1.8) 08/09/17 10:57 Metamyelocytes % 0 % 08/09/17 10:57 Myelocytes % 0 % 08/09/17 10:57 Promyelocytes % 0 % 08/09/17 10:57 Blast Cells % 0 % 08/09/17 10:57 Nucleated RBC % Not Reportable 08/09/17 10:57 Seg Neutrophils # 5.9 K/mm3 (1.8-7.7) 08/12/17 04:31 Seg Neutrophils # Man 9.3 K/mm3 (1.8-7.7) H 08/09/17 10:57 Band Neutrophils # 0.6 K/mm3 08/09/17 10:57 Lymphocytes # (Manual) 2.2 K/mm3 (1.2-5.4) 08/09/17 10:57 Abs React Lymphs (Man) 0.4 K/mm3 08/09/17 10:57 Monocytes # (Manual) 1.3 K/mm3 (0.0-0.8) H 08/09/17 10:57 Eosinophils # (Manual) 0.7 K/mm3 (0.0-0.4) H 08/09/17 10:57 Basophils # (Manual) 0.0 K/mm3 (0.0-0.1) 08/09/17 10:57 Metamyelocytes # 0.0 K/mm3 08/09/17 10:57 Myelocytes # 0.0 K/mm3 08/09/17 10:57 Promyelocytes # 0.0 K/mm3 08/09/17 10:57 Blast Cells # 0.0 K/mm3 08/09/17 10:57 WBC Morphology Not Reportable 08/09/17 10:57 Hypersegmented Neuts Not Reportable 08/09/17 10:57 Hyposegmented Neuts Not Reportable 08/09/17 10:57 Hypogranular Neuts Not Reportable 08/09/17 10:57 Smudge Cells Not Reportable 08/09/17 10:57 Toxic Granulation Not Reportable 08/09/17 10:57 Toxic Vacuolation Not Reportable 08/09/17 10:57 Dohle Bodies Not Reportable 08/09/17 10:57 Pelger-Huet Anomaly Not Reportable 08/09/17 10:57 Noa Rods Not Reportable 08/09/17 10:57 Platelet Estimate Consistent w auto 08/09/17 10:57 Clumped Platelets Not Reportable 08/09/17 10:57 Plt Clumps, EDTA Not Reportable 08/09/17 10:57 Large Platelets Not Reportable 08/09/17 10:57 Giant Platelets Few 08/09/17 10:57 Platelet Satelliting Not Reportable 08/09/17 10:57 Plt Morphology Comment Not Reportable 08/09/17 10:57 RBC Morphology Not Reportable 08/09/17 10:57 Dimorphic RBCs Not Reportable 08/09/17 10:57 Polychromasia Not Reportable 08/09/17 10:57 Hypochromasia 1+ 08/09/17 10:57 Poikilocytosis 1+ 08/09/17 10:57 Anisocytosis 1+ 08/09/17 10:57 Microcytosis 1+ 08/09/17 10:57 Macrocytosis Not Reportable 08/09/17 10:57 Spherocytes Not Reportable 08/09/17 10:57 Pappenheimer Bodies Not Reportable 08/09/17 10:57 Sickle Cells Not Reportable 08/09/17 10:57 Target Cells Not Reportable 08/09/17 10:57 Tear Drop Cells Not Reportable 08/09/17 10:57 Ovalocytes Few 08/09/17 10:57 Stomatocytes 1+ 08/09/17 10:57 Helmet Cells Not Reportable 08/09/17 10:57 [place] Bodies Not Reportable 08/09/17 10:57 [place] Rings Not Reportable 08/09/17 10:57 [place]ignon Cells Not Reportable 08/09/17 10:57 Bite Cells Not Reportable 08/09/17 10:57 Crenated Cell Not Reportable 08/09/17 10:57 Elliptocytes Not Reportable 08/09/17 10:57 Acanthocytes (Spur) Not Reportable 08/09/17 10:57 Rouleaux Not Reportable 08/09/17 10:57 Hemoglobin C Crystals Not Reportable 08/09/17 10:57 Schistocytes Not Reportable 08/09/17 10:57 Malaria parasites Not Reportable 08/09/17 10:57 Cuco Bodies Not Reportable 08/09/17 10:57 Hem Pathologist Commnt No 08/09/17 10:57 PT 29.1 Sec. (12.2-14.9) H 08/25/17 05:00 INR 2.55 (0.87-1.13) H 08/25/17 05:00 APTT 29.0 Sec. (24.2-36.6) 08/14/17 10:36 D-Dimer 1693.79 ng/mlDDU (0-234) H 08/17/17 21:48 Heparin Anti-Xa Level 0.43 U.I./ml (0.3-0.7) 08/17/17 05:58 POC ABG pH 7.471 (7.35-7.45) H 08/15/17 04:20 POC ABG pCO2 53.8 (35-45) H 08/15/17 04:20 POC ABG pO2 81 (80-105) 08/15/17 04:20 POC ABG HCO3 39.3 08/15/17 04:20 POC ABG Total CO2 41 08/15/17 04:20 POC ABG O2 Sat 96 08/15/17 04:20 POC ABG Base Excess 16 08/15/17 04:20 VBG pH 7.463 (7.320-7.420) H 08/07/17 16:58 FiO2 100 % 08/15/17 04:20 Sodium 145 mmol/L (137-145) 08/22/17 04:00 Potassium 3.6 mmol/L (3.6-5.0) 08/22/17 04:00 Chloride 90.8 mmol/L (98-107) L 08/22/17 04:00 Carbon Dioxide 40 mmol/L (22-30) H 08/22/17 04:00 Anion Gap 18 mmol/L 08/22/17 04:00 BUN 30 mg/dL (9-20) H 08/22/17 04:00 Creatinine 0.9 mg/dL (0.8-1.5) 08/22/17 04:00 Estimated GFR > 60 ml/min 08/22/17 04:00 BUN/Creatinine Ratio 33 % 08/22/17 04:00 Glucose 149 mg/dL (75-100) H 08/22/17 04:00 POC Glucose 209 (70-105) H 08/24/17 21:13 Lactic Acid 0.90 mmol/L (0.7-2.0) 08/08/17 06:01 Calcium 9.1 mg/dL (8.4-10.2) 08/22/17 04:00 Magnesium 2.40 mg/dL (1.7-2.3) H 08/22/17 04:00 Total Bilirubin 0.70 mg/dL (0.1-1.2) 08/16/17 14:04 Direct Bilirubin 0.2 mg/dL (0-0.2) 08/11/17 07:12 Indirect Bilirubin 0.3 mg/dL 08/11/17 07:12 AST 11 units/L (5-40) 08/16/17 14:04 ALT 10 units/L (7-56) 08/16/17 14:04 Alkaline Phosphatase 68 units/L (35-129) 08/16/17 14:04 NT-Pro-B Natriuret Pep 6070 pg/mL (0-450) H 08/14/17 10:36 Total Protein 5.8 g/dL (6.3-8.2) L 08/16/17 14:04 Albumin 3.0 g/dL (3.9-5) L 08/16/17 14:04 Albumin/Globulin Ratio 1.1 % 08/16/17 14:04 TSH 4.780 mlU/mL (0.270-4.200) H 08/11/17 07:12 Free T4 0.86 ng/dL (0.76-1.46) 08/11/17 07:12
[2017-08-26] MEDS: LASIX IV SCH ×3 (01:19→18:56)
[2017-08-26 06:54] LABS: INR 2.55 (0.87-1.13)
[2017-08-26] MEDS: K-DUR PO SCH (11:08)
[2017-08-26] MEDS: NOVOLOG SUB-Q SCH ×4 (12:15→22:20)
--- NOTE | 2017-08-26 15:06 | Progress Note ---
Addendum entered and electronically signed by KACY ALLEN MD 08/26/17 15: 06: *Complex patient/decision-making Original Note: Assessment and Plan Imp: 1. RUSSEL 2. OHS 3. Morbid obesity 4. A/C respiratory failure, hypoxia and hypercapnea 5. NICMP 6. A/C systolic CHF 7. Pulm HTN 2/2 above Rec: 1. Diuresis 2. BIPAP QHS and prn 3. Agree w/ home NIV 4. Weight loss 5. Wean O2 to keep sats 88-94% -> ask RT to be more aggressive weaning 6. Incentive anthony 7. Repeat labs 8. Will follow; complex patient/decision-making Plan of care reviewed with patient, he understands/agrees Subjective Date of service: 08/26/17 Principal diagnosis: heart failure, hypercapnic respiratory failure, severe morbid obesity Interval history: No events. Remains on HFNC at 15LPM and 50%. SOB better. No new complaints. Active Medications Acetaminophen (Tylenol) 650 mg PO Q4H PRN PRN Reason: /Fever >100.5/ARENAS Last Admin: 08/10/17 09:28 Dose: 650 mg Albuterol (Proventil) 2.5 mg IH Q4HRT PRN PRN Reason: Shortness Of Breath Last Admin: 08/19/17 20:22 Dose: 2.5 mg Bisacodyl (Dulcolax) 10 mg [place] QDAY PRN PRN Reason: Constipation unrelieved by MOM Furosemide (Lasix) 40 mg IV Q8H [facility] Last Admin: 08/26/17 11:12 Dose: 40 mg Guaifenesin (Guaifenesin Dm Syrup) 10 ml PO Q6H PRN PRN Reason: Cough Last Admin: 08/23/17 22:33 Dose: 10 ml Ibuprofen (Motrin) 600 mg PO Q8H PRN PRN Reason: Pain, Mild (1-3) Last Admin: 08/17/17 17:30 Dose: 600 mg Insulin Aspart (Novolog) 0 units SUB-Q ACHS MICHELLE PRN Reason: Protocol Last Admin: 08/26/17 12:15 Dose: Not Given Magnesium Hydroxide (Milk Of Magnesia) 30 ml PO Q4H PRN PRN Reason: Constipation Ondansetron HCl (Zofran) 4 mg IV Q8H PRN PRN Reason: N/V unrelieved by Reglan Last Admin: 08/07/17 23:02 Dose: 4 mg Potassium Chloride (K-Dur) 20 meq PO QDAY [facility] Last Admin: 08/26/17 11:08 Dose: 20 meq Warfarin Sodium (Coumadin Pharmacy To Dose) 1 each PO PKCONSULT [facility] Warfarin Sodium (Coumadin) 7.5 mg PO DAILY@1700 [facility] Last Admin: 08/25/17 18:31 Dose: 7.5 mg Objective Vital Signs - 12hr 08/26/17 08/26/17 08/26/17 03:46 09:54 10:00 Temperature 96.3 F L 98.5 F Pulse Rate 79 80 84 Pulse Rate [ 84 From Monitor] Respiratory 18 16 Rate Blood Pressure 128/75 Blood Pressure 130/72 [Left] O2 Sat by Pulse 99 Oximetry 08/26/17 08/26/17 11:55 12:09 Temperature 97.8 F Pulse Rate 87 Pulse Rate [ From Monitor] Respiratory 20 Rate Blood Pressure 137/68 Blood Pressure [Left] O2 Sat by Pulse 96 96 Oximetry Constitutional: no acute distress, alert Eyes: non-icteric ENT: oropharynx moist Neck: other (extremely large in circumference) Effort: normal Ascultation: Bilateral: clear Percussion: Bilateral: not dull Cardiovascular: regular rate and rhythm (no mrg) Gastrointestinal: normoactive bowel sounds, soft, non-tender, non-distended, other (obese) Integumentary: other (chronic venous stasis changes LEs) Extremities: no cyanosis, edema (lymphedema), other (bilateral lymphedema with chronic changes) Neurologic: normal mental status, non-focal exam, pupils equal and round, CN II- XII normal Psychiatric: mood appropriate, affect normal CBC and BMP: 08/22/17 04:00 08/22/17 04:00 ABG, PT/INR, D-dimer: ABG POC ABG pH 7.471 (7.35-7.45) H 08/15/17 04:20 POC ABG pCO2 53.8 (35-45) H 08/15/17 04:20 POC ABG pO2 81 (80-105) 08/15/17 04:20 POC ABG HCO3 39.3 08/15/17 04:20 POC ABG Total CO2 41 08/15/17 04:20 POC ABG O2 Sat 96 08/15/17 04:20 PT/INR, D-dimer PT 29.1 Sec. (12.2-14.9) H 08/26/17 06:15 INR 2.55 (0.87-1.13) H 08/26/17 06:15 D-Dimer 1693.79 ng/mlDDU (0-234) H 08/17/17 21:48 Abnormal lab findings: Abnormal Labs 08/07/17 08/07/17 08/07/17 16:58 16:58 16:58 WBC 16.1 H RBC 5.44 H Hgb Hct MCV 74 L MCH 22 L MCHC 29 L RDW 21.7 H Stephens % (Auto) Seg Neutrophils % Seg Neuts % (Manual) 87.0 H Lymphocytes % (Manual) 7.0 L Monocytes % (Manual) Eosinophils % (Manual) Basophils % (Manual) 2.0 H Seg Neutrophils # Man 14.0 H Lymphocytes # (Manual) 1.1 L Monocytes # (Manual) Eosinophils # (Manual) Basophils # (Manual) 0.3 H PT 16.2 H INR 1.23 H D-Dimer Heparin Anti-Xa Level POC ABG pH POC ABG pCO2 POC ABG pO2 VBG pH Potassium Chloride 96.2 L Carbon Dioxide 31 H BUN Glucose POC Glucose Lactic Acid Calcium Magnesium NT-Pro-B Natriuret Pep Total Protein 5.8 L Albumin 3.0 L TSH 08/07/17 08/07/17 08/07/17 16:58 16:58 16:58 WBC RBC Hgb Hct MCV MCH MCHC RDW Stephens % (Auto) Seg Neutrophils % Seg Neuts % (Manual) Lymphocytes % (Manual) Monocytes % (Manual) Eosinophils % (Manual) Basophils % (Manual) Seg Neutrophils # Man Lymphocytes # (Manual) Monocytes # (Manual) Eosinophils # (Manual) Basophils # (Manual) PT INR D-Dimer Heparin Anti-Xa Level POC ABG pH POC ABG pCO2 POC ABG pO2 VBG pH 7.463 H Potassium Chloride Carbon Dioxide BUN Glucose POC Glucose Lactic Acid 2.10 H* Calcium Magnesium NT-Pro-B Natriuret Pep 2205 H Total Protein Albumin TSH 08/09/17 08/09/17 08/10/17 10:57 13:37 08:04 WBC 14.5 H RBC Hgb 10.8 L 10.8 L Hct 35.1 L MCV 74 L 76 L MCH 23 L 23 L MCHC 31 L 30 L RDW 21.2 H 21.0 H Stephens % (Auto) Seg Neutrophils % 75.4 H Seg Neuts % (Manual) Lymphocytes % (Manual) Monocytes % (Manual) 9.0 H Eosinophils % (Manual) 5.0 H Basophils % (Manual) Seg Neutrophils # Man 9.3 H Lymphocytes # (Manual) Monocytes # (Manual) 1.3 H Eosinophils # (Manual) 0.7 H Basophils # (Manual) PT INR D-Dimer Heparin Anti-Xa Level POC ABG pH POC ABG pCO2 POC ABG pO2 VBG pH Potassium Chloride 96.9 L Carbon Dioxide 32 H BUN Glucose POC Glucose Lactic Acid Calcium 8.3 L Magnesium NT-Pro-B Natriuret Pep Total Protein Albumin TSH 08/10/17 08/10/17 08/10/17 08:04 08:04 14:50 WBC RBC Hgb Hct MCV MCH MCHC RDW Stephens % (Auto) Seg Neutrophils % Seg Neuts % (Manual) Lymphocytes % (Manual) Monocytes % (Manual) Eosinophils % (Manual) Basophils % (Manual) Seg Neutrophils # Man Lymphocytes # (Manual) Monocytes # (Manual) Eosinophils # (Manual) Basophils # (Manual) PT INR D-Dimer Heparin Anti-Xa Level POC ABG pH POC ABG pCO2 65.9 H POC ABG pO2 VBG pH Potassium Chloride Carbon Dioxide 32 H BUN Glucose 115 H POC Glucose Lactic Acid Calcium Magnesium NT-Pro-B Natriuret Pep Total Protein Albumin TSH 4.900 H 08/11/17 08/11/17 08/11/17 07:12 07:12 07:12 WBC RBC Hgb 10.3 L Hct MCV 76 L MCH 22 L MCHC 29 L RDW 21.4 H Stephens % (Auto) 8.8 H Seg Neutrophils % Seg Neuts % (Manual) Lymphocytes % (Manual) Monocytes % (Manual) Eosinophils % (Manual) Basophils % (Manual) Seg Neutrophils # Man Lymphocytes # (Manual) Monocytes # (Manual) Eosinophils # (Manual) Basophils # (Manual) PT INR D-Dimer Heparin Anti-Xa Level POC ABG pH POC ABG pCO2 POC ABG pO2 VBG pH Potassium Chloride Carbon Dioxide 35 H BUN Glucose 105 H POC Glucose Lactic Acid Calcium Magnesium NT-Pro-B Natriuret Pep Total Protein 5.8 L Albumin 3.1 L TSH 4.780 H 08/12/17 08/12/17 08/13/17 04:31 04:31 11:34 WBC RBC Hgb 10.7 L Hct 35.3 L MCV 76 L MCH 23 L MCHC 30 L RDW 21.3 H Stephens % (Auto) Seg Neutrophils % Seg Neuts % (Manual) Lymphocytes % (Manual) Monocytes % (Manual) Eosinophils % (Manual) Basophils % (Manual) Seg Neutrophils # Man Lymphocytes # (Manual) Monocytes # (Manual) Eosinophils # (Manual) Basophils # (Manual) PT INR D-Dimer Heparin Anti-Xa Level POC ABG pH POC ABG pCO2 61.1 H POC ABG pO2 57 L VBG pH Potassium Chloride 95.8 L Carbon Dioxide 33 H BUN Glucose POC Glucose Lactic Acid Calcium Magnesium NT-Pro-B Natriuret Pep Total Protein 5.8 L Albumin 3.0 L TSH 08/14/17 08/14/17 08/14/17 10:36 10:36 10:36 WBC RBC Hgb 10.7 L Hct MCV MCH MCHC RDW Stephens % (Auto) Seg Neutrophils % Seg Neuts % (Manual) Lymphocytes % (Manual) Monocytes % (Manual) Eosinophils % (Manual) Basophils % (Manual) Seg Neutrophils # Man Lymphocytes # (Manual) Monocytes # (Manual) Eosinophils # (Manual) Basophils # (Manual) PT 15.8 H INR 1.20 H D-Dimer Heparin Anti-Xa Level POC ABG pH POC ABG pCO2 POC ABG pO2 VBG pH Potassium Chloride Carbon Dioxide BUN Glucose POC Glucose Lactic Acid Calcium Magnesium NT-Pro-B Natriuret Pep 6070 H Total Protein Albumin TSH 08/14/17 08/14/17 08/14/17 17:23 20:37 23:18 WBC RBC Hgb Hct MCV MCH MCHC RDW Stephens % (Auto) Seg Neutrophils % Seg Neuts % (Manual) Lymphocytes % (Manual) Monocytes % (Manual) Eosinophils % (Manual) Basophils % (Manual) Seg Neutrophils # Man Lymphocytes # (Manual) Monocytes # (Manual) Eosinophils # (Manual) Basophils # (Manual) PT INR D-Dimer Heparin Anti-Xa Level < 0.10 L POC ABG pH 7.566 H 7.494 H POC ABG pCO2 51.6 H POC ABG pO2 45 L 52 L VBG pH Potassium Chloride Carbon Dioxide BUN Glucose POC Glucose Lactic Acid Calcium Magnesium NT-Pro-B Natriuret Pep Total Protein Albumin TSH 08/15/17 08/15/17 08/15/17 04:15 04:20 08:26 WBC RBC Hgb Hct MCV MCH MCHC RDW Stephens % (Auto) Seg Neutrophils % Seg Neuts % (Manual) Lymphocytes % (Manual) Monocytes % (Manual) Eosinophils % (Manual) Basophils % (Manual) Seg Neutrophils # Man Lymphocytes # (Manual) Monocytes # (Manual) Eosinophils # (Manual) Basophils # (Manual) PT 16.3 H INR 1.24 H D-Dimer Heparin Anti-Xa Level 0.12 L POC ABG pH 7.471 H POC ABG pCO2 53.8 H POC ABG pO2 VBG pH Potassium Chloride Carbon Dioxide BUN Glucose POC Glucose Lactic Acid Calcium Magnesium NT-Pro-B Natriuret Pep Total Protein Albumin TSH 08/15/17 08/16/17 08/16/17 22:00 05:25 05:25 WBC RBC Hgb 11.1 L Hct MCV MCH MCHC RDW Stephens % (Auto) Seg Neutrophils % Seg Neuts % (Manual) Lymphocytes % (Manual) Monocytes % (Manual) Eosinophils % (Manual) Basophils % (Manual) Seg Neutrophils # Man Lymphocytes # (Manual) Monocytes # (Manual) Eosinophils # (Manual) Basophils # (Manual) PT 20.1 H INR 1.61 H D-Dimer Heparin Anti-Xa Level 0.17 L 0.28 L POC ABG pH POC ABG pCO2 POC ABG pO2 VBG pH Potassium Chloride Carbon Dioxide BUN Glucose POC Glucose Lactic Acid Calcium Magnesium NT-Pro-B Natriuret Pep Total Protein Albumin [facility] 08/16/17 08/16/17 08/17/17 14:04 14:04 05:58 WBC RBC 5.10 H Hgb 11.2 L Hct MCV 75 L MCH 22 L MCHC 29 L RDW 20.9 H Stephens % (Auto) Seg Neutrophils % Seg Neuts % (Manual) Lymphocytes % (Manual) Monocytes % (Manual) Eosinophils % (Manual) Basophils % (Manual) Seg Neutrophils # Man Lymphocytes # (Manual) Monocytes # (Manual) Eosinophils # (Manual) Basophils # (Manual) PT 34.7 H INR 3.20 H D-Dimer Heparin Anti-Xa Level POC ABG pH POC ABG pCO2 POC ABG pO2 VBG pH Potassium 3.5 L Chloride 93.1 L Carbon Dioxide 37 H BUN 27 H Glucose 226 H POC Glucose Lactic Acid Calcium Magnesium NT-Pro-B Natriuret Pep Total Protein 5.8 L Albumin 3.0 L [facility] 08/17/17 08/18/17 08/18/17 21:48 04:00 05:23 WBC RBC Hgb 11.3 L Hct MCV MCH MCHC RDW Stephens % (Auto) Seg Neutrophils % Seg Neuts % (Manual) Lymphocytes % (Manual) Monocytes % (Manual) Eosinophils % (Manual) Basophils % (Manual) Seg Neutrophils # Man Lymphocytes # (Manual) Monocytes # (Manual) Eosinophils # (Manual) Basophils # (Manual) PT 24.2 H INR 2.04 H D-Dimer 1693.79 H Heparin Anti-Xa Level POC ABG pH POC ABG pCO2 POC ABG pO2 VBG pH Potassium Chloride Carbon Dioxide BUN Glucose POC Glucose Lactic Acid Calcium Magnesium NT-Pro-B Natriuret Pep Total Protein Albumin [facility] 08/18/17 08/19/17 08/20/17 05:23 04:30 03:00 WBC RBC Hgb 11.7 L Hct MCV MCH MCHC RDW Stephens % (Auto) Seg Neutrophils % Seg Neuts % (Manual) Lymphocytes % (Manual) Monocytes % (Manual) Eosinophils % (Manual) Basophils % (Manual) Seg Neutrophils # Man Lymphocytes # (Manual) Monocytes # (Manual) Eosinophils # (Manual) Basophils # (Manual) PT 20.0 H INR 1.60 H D-Dimer Heparin Anti-Xa Level POC ABG pH POC ABG pCO2 POC ABG pO2 VBG pH Potassium Chloride 86.8 L Carbon Dioxide 38 H BUN 33 H Glucose 355 H POC Glucose Lactic Acid Calcium Magnesium NT-Pro-B Natriuret Pep Total Protein Albumin [facility] 08/20/17 08/20/17 08/20/17 03:00 03:00 17:37 WBC RBC Hgb Hct MCV MCH MCHC RDW Stephens % (Auto) Seg Neutrophils % Seg Neuts % (Manual) Lymphocytes % (Manual) Monocytes % (Manual) Eosinophils % (Manual) Basophils % (Manual) Seg Neutrophils # Man Lymphocytes # (Manual) Monocytes # (Manual) Eosinophils # (Manual) Basophils # (Manual) PT 22.7 H INR 1.87 H D-Dimer Heparin Anti-Xa Level POC ABG pH POC ABG pCO2 POC ABG pO2 VBG pH Potassium Chloride 91.3 L Carbon Dioxide 38 H BUN 34 H Glucose 391 H POC Glucose 312 H Lactic Acid Calcium Magnesium NT-Pro-B Natriuret Pep Total Protein Albumin TSH 08/20/17 08/21/17 08/21/17 22:34 06:40 08:22 WBC RBC Hgb Hct MCV MCH MCHC RDW Stephens % (Auto) Seg Neutrophils % Seg Neuts % (Manual) Lymphocytes % (Manual) Monocytes % (Manual) Eosinophils % (Manual) Basophils % (Manual) Seg Neutrophils # Man Lymphocytes # (Manual) Monocytes # (Manual) Eosinophils # (Manual) Basophils # (Manual) PT 28.6 H INR 2.49 H D-Dimer Heparin Anti-Xa Level POC ABG pH POC ABG pCO2 POC ABG pO2 VBG pH Potassium Chloride Carbon Dioxide BUN Glucose POC Glucose 166 H 123 H Lactic Acid Calcium Magnesium NT-Pro-B Natriuret Pep Total Protein Albumin [facility] 08/21/17 08/21/17 08/21/17 12:29 17:08 21:17 WBC RBC Hgb Hct MCV MCH MCHC RDW Stephens % (Auto) Seg Neutrophils % Seg Neuts % (Manual) Lymphocytes % (Manual) Monocytes % (Manual) Eosinophils % (Manual) Basophils % (Manual) Seg Neutrophils # Man Lymphocytes # (Manual) Monocytes # (Manual) Eosinophils # (Manual) Basophils # (Manual) PT INR D-Dimer Heparin Anti-Xa Level POC ABG pH POC ABG pCO2 POC ABG pO2 VBG pH Potassium Chloride Carbon Dioxide BUN Glucose POC Glucose 182 H 135 H 145 H Lactic Acid Calcium Magnesium NT-Pro-B Natriuret Pep Total Protein Albumin [facility] 08/22/17 08/22/17 08/22/17 04:00 05:00 08:35 WBC RBC Hgb Hct MCV MCH MCHC RDW Stephens % (Auto) Seg Neutrophils % Seg Neuts % (Manual) Lymphocytes % (Manual) Monocytes % (Manual) Eosinophils % (Manual) Basophils % (Manual) Seg Neutrophils # Man Lymphocytes # (Manual) Monocytes # (Manual) Eosinophils # (Manual) Basophils # (Manual) PT 27.6 H INR 2.38 H D-Dimer Heparin Anti-Xa Level POC ABG pH POC ABG pCO2 POC ABG pO2 VBG pH Potassium Chloride 90.8 L Carbon Dioxide 40 H BUN 30 H Glucose 149 H POC Glucose 132 H Lactic Acid Calcium Magnesium 2.40 H NT-Pro-B Natriuret Pep Total Protein Albumin TSH 08/22/17 08/22/17 08/22/17 13:54 16:38 21:07 WBC RBC Hgb Hct MCV MCH MCHC RDW Stephens % (Auto) Seg Neutrophils % Seg Neuts % (Manual) Lymphocytes % (Manual) Monocytes % (Manual) Eosinophils % (Manual) Basophils % (Manual) Seg Neutrophils # Man Lymphocytes # (Manual) Monocytes # (Manual) Eosinophils # (Manual) Basophils # (Manual) PT INR D-Dimer Heparin Anti-Xa Level POC ABG pH POC ABG pCO2 POC ABG pO2 VBG pH Potassium Chloride Carbon Dioxide BUN Glucose POC Glucose 189 H 192 H 181 H Lactic Acid Calcium Magnesium NT-Pro-B Natriuret Pep Total Protein Albumin [facility] 08/23/17 08/23/17 08/23/17 05:25 08:18 12:27 WBC RBC Hgb Hct MCV MCH MCHC RDW Stephens % (Auto) Seg Neutrophils % Seg Neuts % (Manual) Lymphocytes % (Manual) Monocytes % (Manual) Eosinophils % (Manual) Basophils % (Manual) Seg Neutrophils # Man Lymphocytes # (Manual) Monocytes # (Manual) Eosinophils # (Manual) Basophils # (Manual) PT 28.2 H INR 2.45 H D-Dimer Heparin Anti-Xa Level POC ABG pH POC ABG pCO2 POC ABG pO2 VBG pH Potassium Chloride Carbon Dioxide BUN Glucose POC Glucose 168 H 109 H Lactic Acid Calcium Magnesium NT-Pro-B Natriuret Pep Total Protein Albumin [facility] 08/23/17 08/24/17 08/24/17 16:49 08:00 08:24 WBC RBC Hgb Hct MCV MCH MCHC RDW [place] % (Auto) Seg Neutrophils % Seg Neuts % (Manual) Lymphocytes % (Manual) Monocytes % (Manual) Eosinophils % (Manual) Basophils % (Manual) Seg Neutrophils # Man Lymphocytes # (Manual) Monocytes # (Manual) Eosinophils # (Manual) Basophils # (Manual) PT 29.3 H INR 2.57 H D-Dimer Heparin Anti-Xa Level POC ABG pH POC ABG pCO2 POC ABG pO2 VBG pH Potassium Chloride Carbon Dioxide BUN Glucose POC Glucose 117 H 144 H Lactic Acid Calcium Magnesium NT-Pro-B Natriuret Pep Total Protein Albumin [facility] 08/24/17 08/24/17 08/24/17 12:57 16:23 21:13 WBC RBC Hgb Hct MCV MCH MCHC RDW [place] % (Auto) Seg Neutrophils % Seg Neuts % (Manual) Lymphocytes % (Manual) Monocytes % (Manual) Eosinophils % (Manual) Basophils % (Manual) Seg Neutrophils # Man Lymphocytes # (Manual) Monocytes # (Manual) Eosinophils # (Manual) Basophils # (Manual) PT INR D-Dimer Heparin Anti-Xa Level POC ABG pH POC ABG pCO2 POC ABG pO2 VBG pH Potassium Chloride Carbon Dioxide BUN Glucose POC Glucose 113 H 145 H 209 H Lactic Acid Calcium Magnesium NT-Pro-B Natriuret Pep Total Protein Albumin TSH 08/25/17 08/25/17 08/25/17 05:00 08:07 12:00 WBC RBC Hgb Hct MCV MCH MCHC RDW [place] % (Auto) Seg Neutrophils % Seg Neuts % (Manual) Lymphocytes % (Manual) Monocytes % (Manual) Eosinophils % (Manual) Basophils % (Manual) Seg Neutrophils # Man Lymphocytes # (Manual) Monocytes # (Manual) Eosinophils # (Manual) Basophils # (Manual) PT 29.1 H INR 2.55 H D-Dimer Heparin Anti-Xa Level POC ABG pH POC ABG pCO2 POC ABG pO2 VBG pH Potassium Chloride Carbon Dioxide BUN Glucose POC Glucose 129 H 125 H Lactic Acid Calcium Magnesium NT-Pro-B Natriuret Pep Total Protein Albumin TSH 08/25/17 08/25/17 08/26/17 17:04 22:11 06:15 WBC RBC Hgb Hct MCV MCH MCHC RDW [place] % (Auto) Seg Neutrophils % Seg Neuts % (Manual) Lymphocytes % (Manual) Monocytes % (Manual) Eosinophils % (Manual) Basophils % (Manual) Seg Neutrophils # Man Lymphocytes # (Manual) Monocytes # (Manual) Eosinophils # (Manual) Basophils # (Manual) PT 29.1 H INR 2.55 H D-Dimer Heparin Anti-Xa Level POC ABG pH POC ABG pCO2 POC ABG pO2 VBG pH Potassium Chloride Carbon Dioxide BUN Glucose POC Glucose 124 H 130 H Lactic Acid Calcium Magnesium NT-Pro-B Natriuret Pep Total Protein Albumin TSH 08/26/17 08/26/17 09:04 12:13 WBC RBC Hgb Hct MCV MCH MCHC RDW [place] % (Auto) Seg Neutrophils % Seg Neuts % (Manual) Lymphocytes % (Manual) Monocytes % (Manual) Eosinophils % (Manual) Basophils % (Manual) Seg Neutrophils # Man Lymphocytes # (Manual) Monocytes # (Manual) Eosinophils # (Manual) Basophils # (Manual) PT INR D-Dimer Heparin Anti-Xa Level POC ABG pH POC ABG pCO2 POC ABG pO2 VBG pH Potassium Chloride Carbon Dioxide BUN Glucose POC Glucose 137 H 201 H Lactic Acid Calcium Magnesium NT-Pro-B Natriuret Pep Total Protein Albumin TSH Chest x-ray: report reviewed, image reviewed
[2017-08-26] MEDS: COUMADIN PO SCH (17:00)
--- NOTE | 2017-08-26 19:52 | Progress Note ---
Assessment and Plan Assessment and plan: --Acute on chronic hypoxic, hypercapnic respiratory failure on high flow oxygen, BIPAP prn, continue nebulizers , off steroids , - obstructive sleep apnea/obesity hypoventilation syndrome/morbid obesity Continue, BiPAP at night, out patient sleep study --Main goal of the treatment is weight loss Patient strongly encouraged dietary modification, exercise as tolerated and weight reduction Patient would benefit by, outpatient bariatric surgical evaluation for weight reduction program when medically stable. --Continue wound care and lymphedema care inpatient and outpatient post discharge --Morbid obesity; BMI of 88; counseling done, --Acute systolic congestive heart failure ; EF 40-45% with severe pulmonary hypertension Continue diuretics Lasix 40 every 8 hours, input output monitoring, fluid restriction --Severe pulmonary hypertension on echocardiogram; diuretics, fluid restriction , --Left lower lobe pneumonia/atelectasis/community-acquired; resolved, completed treatment --Chronic massive lymphedema; supportive care, wound care and lymphedema care as needed --Empiric anticoagulation on Coumadin, therapeutic INR, target INR 2-3 --Discharge planning. Case management, possible home with home health when patient is stable --Physical therapy occupational therapy as tolerated Plan of care reviewed with the patient family member and his nurse as well as the case management History Interval history: Clinically no change Patient feels better no new complaints Doing physical therapy tolerating well Vital signs reviewed Hospitalist Physical - Constitutional Vitals: Temp Pulse Resp BP Pulse Ox 97.9 F 84 20 125/73 98 08/26/17 18:59 08/26/17 18:59 08/26/17 12:09 08/26/17 18:59 08/26/17 14:00 General appearance: Present: no acute distress, well-nourished, obese (morbidly obese) - EENT Eyes: Present: PERRL, EOM intact - Neck Neck: Present: supple, normal ROM - Respiratory Respiratory effort: normal Respiratory: bilateral: diminished, negative: rales, rhonchi, wheezing - Cardiovascular Rhythm: regular Heart Sounds: Present: gallop - Extremities Extremities: no ischemia, No edema Extremity abnormal: other (massive chronic lymphedema) - Abdominal General gastrointestinal: soft, non-tender, non-distended, normal bowel sounds - Integumentary Integumentary: Present: clear, warm - Psychiatric Psychiatric: appropriate mood/affect, cooperative - Neurologic Neurologic: CNII-XII intact, moves all extremities Results - Labs CBC & Chem 7: 08/22/17 04:00 08/22/17 04:00 Labs: Laboratory Last Values WBC 7.6 K/mm3 (4.5-11.0) 08/16/17 14:04 RBC 5.10 M/mm3 (3.65-5.03) H 08/16/17 14:04 Hgb 12.2 gm/dl (11.8-15.2) 08/22/17 04:00 Hct 40.4 % (35.5-45.6) 08/22/17 04:00 MCV 75 fl (84-94) L 08/16/17 14:04 MCH 22 pg (28-32) L 08/16/17 14:04 MCHC 29 % (32-34) L 08/16/17 14:04 RDW 20.9 % (13.2-15.2) H 08/16/17 14:04 Plt Count 179 K/mm3 (140-440) 08/22/17 04:00 Lymph % (Auto) 18.2 % (13.4-35.0) 08/12/17 04:31 [place] % (Auto) 7.0 % (0.0-7.3) 08/12/17 04:31 Eos % (Auto) 4.0 % (0.0-4.3) 08/12/17 04:31 Baso % (Auto) 0.8 % (0.0-1.8) 08/12/17 04:31 Lymph # 1.5 K/mm3 (1.2-5.4) 08/12/17 04:31 [place] # 0.6 K/mm3 (0.0-0.8) 08/12/17 04:31 Eos # 0.3 K/mm3 (0.0-0.4) 08/12/17 04:31 Baso # 0.1 K/mm3 (0.0-0.1) 08/12/17 04:31 Add Manual Diff Complete 08/09/17 10:57 Total Counted 100 08/09/17 10:57 Seg Neutrophils % 70.0 % (40.0-70.0) 08/12/17 04:31 Seg Neuts % (Manual) 64.0 % (40.0-70.0) 08/09/17 10:57 Band Neutrophils % 4.0 % 08/09/17 10:57 Lymphocytes % (Manual) 15.0 % (13.4-35.0) 08/09/17 10:57 Reactive Lymphs % (Man) 3.0 % 08/09/17 10:57 Monocytes % (Manual) 9.0 % (0.0-7.3) H 08/09/17 10:57 Eosinophils % (Manual) 5.0 % (0.0-4.3) H 08/09/17 10:57 Basophils % (Manual) 0 % (0.0-1.8) 08/09/17 10:57 Metamyelocytes % 0 % 08/09/17 10:57 Myelocytes % 0 % 08/09/17 10:57 Promyelocytes % 0 % 08/09/17 10:57 Blast Cells % 0 % 08/09/17 10:57 Nucleated RBC % Not Reportable 08/09/17 10:57 Seg Neutrophils # 5.9 K/mm3 (1.8-7.7) 08/12/17 04:31 Seg Neutrophils # Man 9.3 K/mm3 (1.8-7.7) H 08/09/17 10:57 Band Neutrophils # 0.6 K/mm3 08/09/17 10:57 Lymphocytes # (Manual) 2.2 K/mm3 (1.2-5.4) 08/09/17 10:57 Abs React Lymphs (Man) 0.4 K/mm3 08/09/17 10:57 Monocytes # (Manual) 1.3 K/mm3 (0.0-0.8) H 08/09/17 10:57 Eosinophils # (Manual) 0.7 K/mm3 (0.0-0.4) H 08/09/17 10:57 Basophils # (Manual) 0.0 K/mm3 (0.0-0.1) 08/09/17 10:57 Metamyelocytes # 0.0 K/mm3 08/09/17 10:57 Myelocytes # 0.0 K/mm3 08/09/17 10:57 Promyelocytes # 0.0 K/mm3 08/09/17 10:57 Blast Cells # 0.0 K/mm3 08/09/17 10:57 WBC Morphology Not Reportable 08/09/17 10:57 Hypersegmented Neuts Not Reportable 08/09/17 10:57 Hyposegmented Neuts Not Reportable 08/09/17 10:57 Hypogranular Neuts Not Reportable 08/09/17 10:57 Smudge Cells Not Reportable 08/09/17 10:57 Toxic Granulation Not Reportable 08/09/17 10:57 Toxic Vacuolation Not Reportable 08/09/17 10:57 Dohle Bodies Not Reportable 08/09/17 10:57 Pelger-Huet Anomaly Not Reportable 08/09/17 10:57 Noa Rods Not Reportable 08/09/17 10:57 Platelet Estimate Consistent w auto 08/09/17 10:57 Clumped Platelets Not Reportable 08/09/17 10:57 Plt Clumps, EDTA Not Reportable 08/09/17 10:57 Large Platelets Not Reportable 08/09/17 10:57 Giant Platelets Few 08/09/17 10:57 Platelet Satelliting Not Reportable 08/09/17 10:57 Plt Morphology Comment Not Reportable 08/09/17 10:57 RBC Morphology Not Reportable 08/09/17 10:57 Dimorphic RBCs Not Reportable 08/09/17 10:57 Polychromasia Not Reportable 08/09/17 10:57 Hypochromasia 1+ 08/09/17 10:57 Poikilocytosis 1+ 08/09/17 10:57 Anisocytosis 1+ 08/09/17 10:57 Microcytosis 1+ 08/09/17 10:57 Macrocytosis Not Reportable 08/09/17 10:57 Spherocytes Not Reportable 08/09/17 10:57 Pappenheimer Bodies Not Reportable 08/09/17 10:57 Sickle Cells Not Reportable 08/09/17 10:57 Target Cells Not Reportable 08/09/17 10:57 Tear Drop Cells Not Reportable 08/09/17 10:57 Ovalocytes Few 08/09/17 10:57 Stomatocytes 1+ 08/09/17 10:57 Helmet Cells Not Reportable 08/09/17 10:57 [place] Bodies Not Reportable 08/09/17 10:57 [place] [employer] Rings Not Reportable 08/09/17 10:57 [place] Cells Not Reportable 08/09/17 10:57 Bite Cells Not Reportable 08/09/17 10:57 Crenated Cell Not Reportable 08/09/17 10:57 Elliptocytes Not Reportable 08/09/17 10:57 Acanthocytes (Spur) Not Reportable 08/09/17 10:57 Rouleaux Not Reportable 08/09/17 10:57 Hemoglobin C Crystals Not Reportable 08/09/17 10:57 Schistocytes Not Reportable 08/09/17 10:57 Malaria parasites Not Reportable 08/09/17 10:57 Cuco Bodies Not Reportable 08/09/17 10:57 Hem Pathologist Commnt No 08/09/17 10:57 PT 29.1 Sec. (12.2-14.9) H 08/26/17 06:15 INR 2.55 (0.87-1.13) H 08/26/17 06:15 APTT 29.0 Sec. (24.2-36.6) 08/14/17 10:36 D-Dimer 1693.79 ng/mlDDU (0-234) H 08/17/17 21:48 Heparin Anti-Xa Level 0.43 U.I./ml (0.3-0.7) 08/17/17 05:58 POC ABG pH 7.471 (7.35-7.45) H 08/15/17 04:20 POC ABG pCO2 53.8 (35-45) H 08/15/17 04:20 POC ABG pO2 81 (80-105) 08/15/17 04:20 POC ABG HCO3 39.3 08/15/17 04:20 POC ABG Total CO2 41 08/15/17 04:20 POC ABG O2 Sat 96 08/15/17 04:20 POC ABG Base Excess 16 08/15/17 04:20 VBG pH 7.463 (7.320-7.420) H 08/07/17 16:58 FiO2 100 % 08/15/17 04:20 Sodium 145 mmol/L (137-145) 08/22/17 04:00 Potassium 3.6 mmol/L (3.6-5.0) 08/22/17 04:00 Chloride 90.8 mmol/L (98-107) L 08/22/17 04:00 Carbon Dioxide 40 mmol/L (22-30) H 08/22/17 04:00 Anion Gap 18 mmol/L 08/22/17 04:00 BUN 30 mg/dL (9-20) H 08/22/17 04:00 Creatinine 0.9 mg/dL (0.8-1.5) 08/22/17 04:00 Estimated GFR > 60 ml/min 08/22/17 04:00 BUN/Creatinine Ratio 33 % 08/22/17 04:00 Glucose 149 mg/dL (75-100) H 08/22/17 04:00 POC Glucose 201 (70-105) H 08/26/17 12:13 Lactic Acid 0.90 mmol/L (0.7-2.0) 08/08/17 06:01 Calcium 9.1 mg/dL (8.4-10.2) 08/22/17 04:00 Magnesium 2.40 mg/dL (1.7-2.3) H 08/22/17 04:00 Total Bilirubin 0.70 mg/dL (0.1-1.2) 08/16/17 14:04 Direct Bilirubin 0.2 mg/dL (0-0.2) 08/11/17 07:12 Indirect Bilirubin 0.3 mg/dL 08/11/17 07:12 AST 11 units/L (5-40) 08/16/17 14:04 ALT 10 units/L (7-56) 08/16/17 14:04 Alkaline Phosphatase 68 units/L (35-129) 08/16/17 14:04 NT-Pro-B Natriuret Pep 6070 pg/mL (0-450) H 08/14/17 10:36 Total Protein 5.8 g/dL (6.3-8.2) L 08/16/17 14:04 Albumin 3.0 g/dL (3.9-5) L 08/16/17 14:04 Albumin/Globulin Ratio 1.1 % 08/16/17 14:04 TSH 4.780 mlU/mL (0.270-4.200) H 08/11/17 07:12 Free T4 0.86 ng/dL (0.76-1.46) 08/11/17 07:12
[2017-08-27] MEDS: LASIX IV SCH ×3 (02:50→17:19)
[2017-08-27 05:54] LABS: Basophils # (Auto) 0.1 K/mm3 (0.0-0.1); Basophils % (Auto) 1.2 % (0.0-1.8); Eosinophils # (Auto) 0.6 K/mm3 (0.0-0.4); Eosinophils % (Auto) 5.2 % (0.0-4.3); Hematocrit 38.2 % (35.5-45.6); Lymphocytes # (Auto) 2.7 K/mm3 (1.2-5.4); Lymphocytes % (Auto) 25.2 % (13.4-35.0); Mean Corpuscular HGB Conc 31 % (32-34); Mean Corpuscular Volume 74 fl (84-94); Monocytes # (Auto) 1.2 K/mm3 (0.0-0.8); Platelet Count 234 K/mm3 (140-440); Red Blood Count 5.15 M/mm3 (3.65-5.03)
[2017-08-27 06:01] LABS: Mean Corpuscular Hemoglobin 23 pg (28-32); Red Cell Distribution Width 20.4 % (13.2-15.2)
[2017-08-27 06:16] LABS: INR 2.53 (0.87-1.13)
[2017-08-27 06:18] LABS: BUN/Creatinine Ratio 16; Blood Urea Nitrogen 13 mg/dL (9-20); Calcium 9.1 mg/dL (8.4-10.2); Hemolysis Index 1
[2017-08-27] MEDS: NOVOLOG SUB-Q SCH ×4 (09:06→22:07)
[2017-08-27] MEDS: K-DUR PO SCH (09:34)
--- NOTE | 2017-08-27 15:26 | Progress Note ---
Assessment and Plan Assessment and plan: --Acute on chronic hypoxic, hypercapnic respiratory failure on high flow oxygen, continue current management - obstructive sleep apnea/obesity hypoventilation syndrome/morbid obesity Continue, BiPAP at night, out patient sleep study --Main goal of the treatment is weight loss, Patient strongly encouraged --Continue wound care and lymphedema care inpatient and outpatient post discharge --Morbid obesity; BMI of 84; counseling done, --Acute systolic congestive heart failure ; EF 40-45% with severe pulmonary hypertension Continue diuretics Lasix 40 every 8 hours, input output monitoring, fluid restriction --Severe pulmonary hypertension on echocardiogram; diuretics, fluid restriction , --Left lower lobe pneumonia/atelectasis/community-acquired; resolved, completed treatment --Chronic massive lymphedema; supportive care, wound care and lymphedema care as needed --Empiric anticoagulation on Coumadin, therapeutic INR, target INR 2-3 --Discharge planning. Case management, possible home with home health when patient is stable --Physical therapy occupational therapy as tolerated Plan of care reviewed with the patient family member and his nurse as well as the case management History Interval history: Patient feels better no new complaints Tolerating physical therapy Vital signs stable Hospitalist Physical - Constitutional Vitals: Temp Pulse Resp BP Pulse Ox 97.9 F 89 20 117/64 96 08/27/17 11:41 08/27/17 11:41 08/27/17 11:41 08/27/17 11:41 08/27/17 11:41 General appearance: Present: no acute distress, well-nourished, obese (morbidly obese) - EENT Eyes: Present: PERRL, EOM intact - Neck Neck: Present: supple, normal ROM - Respiratory Respiratory effort: normal Respiratory: bilateral: diminished, negative: rales, rhonchi, wheezing - Cardiovascular Rhythm: regular Heart Sounds: Present: S1 & S2 - Extremities Extremities: no ischemia Extremity abnormal: edema, other (chronic lymphedema) - Abdominal General gastrointestinal: soft, non-tender, non-distended, normal bowel sounds - Integumentary Integumentary: Present: clear, warm - Psychiatric Psychiatric: appropriate mood/affect, cooperative - Neurologic Neurologic: CNII-XII intact, moves all extremities Results - Labs CBC & Chem 7: 08/27/17 04:00 08/27/17 04:00 Labs: Laboratory Last Values WBC 10.7 K/mm3 (4.5-11.0) 08/27/17 04:00 RBC 5.15 M/mm3 (3.65-5.03) H 08/27/17 04:00 Hgb 12.0 gm/dl (11.8-15.2) 08/27/17 04:00 Hct 38.2 % (35.5-45.6) 08/27/17 04:00 MCV 74 fl (84-94) L 08/27/17 04:00 MCH 23 pg (28-32) L 08/27/17 04:00 MCHC 31 % (32-34) L 08/27/17 04:00 RDW 20.4 % (13.2-15.2) H 08/27/17 04:00 Plt Count 234 K/mm3 (140-440) 08/27/17 04:00 Lymph % (Auto) 25.2 % (13.4-35.0) 08/27/17 04:00 [place] % (Auto) 11.0 % (0.0-7.3) H 08/27/17 04:00 Eos % (Auto) 5.2 % (0.0-4.3) H 08/27/17 04:00 Baso % (Auto) 1.2 % (0.0-1.8) 08/27/17 04:00 Lymph # 2.7 K/mm3 (1.2-5.4) 08/27/17 04:00 [place] # 1.2 K/mm3 (0.0-0.8) H 08/27/17 04:00 Eos # 0.6 K/mm3 (0.0-0.4) H 08/27/17 04:00 Baso # 0.1 K/mm3 (0.0-0.1) 08/27/17 04:00 Add Manual Diff Complete 08/09/17 10:57 Total Counted 100 08/09/17 10:57 Seg Neutrophils % 57.4 % (40.0-70.0) 08/27/17 04:00 Seg Neuts % (Manual) 64.0 % (40.0-70.0) 08/09/17 10:57 Band Neutrophils % 4.0 % 08/09/17 10:57 Lymphocytes % (Manual) 15.0 % (13.4-35.0) 08/09/17 10:57 Reactive Lymphs % (Man) 3.0 % 08/09/17 10:57 Monocytes % (Manual) 9.0 % (0.0-7.3) H 08/09/17 10:57 Eosinophils % (Manual) 5.0 % (0.0-4.3) H 08/09/17 10:57 Basophils % (Manual) 0 % (0.0-1.8) 08/09/17 10:57 Metamyelocytes % 0 % 08/09/17 10:57 Myelocytes % 0 % 08/09/17 10:57 Promyelocytes % 0 % 08/09/17 10:57 Blast Cells % 0 % 08/09/17 10:57 Nucleated RBC % Not Reportable 08/09/17 10:57 Seg Neutrophils # 6.2 K/mm3 (1.8-7.7) 08/27/17 04:00 Seg Neutrophils # Man 9.3 K/mm3 (1.8-7.7) H 08/09/17 10:57 Band Neutrophils # 0.6 K/mm3 08/09/17 10:57 Lymphocytes # (Manual) 2.2 K/mm3 (1.2-5.4) 08/09/17 10:57 Abs React Lymphs (Man) 0.4 K/mm3 08/09/17 10:57 Monocytes # (Manual) 1.3 K/mm3 (0.0-0.8) H 08/09/17 10:57 Eosinophils # (Manual) 0.7 K/mm3 (0.0-0.4) H 08/09/17 10:57 Basophils # (Manual) 0.0 K/mm3 (0.0-0.1) 08/09/17 10:57 Metamyelocytes # 0.0 K/mm3 08/09/17 10:57 Myelocytes # 0.0 K/mm3 08/09/17 10:57 Promyelocytes # 0.0 K/mm3 08/09/17 10:57 Blast Cells # 0.0 K/mm3 08/09/17 10:57 WBC Morphology Not Reportable 08/09/17 10:57 Hypersegmented Neuts Not Reportable 08/09/17 10:57 Hyposegmented Neuts Not Reportable 08/09/17 10:57 Hypogranular Neuts Not Reportable 08/09/17 10:57 Smudge Cells Not Reportable 08/09/17 10:57 Toxic Granulation Not Reportable 08/09/17 10:57 Toxic Vacuolation Not Reportable 08/09/17 10:57 Dohle Bodies Not Reportable 08/09/17 10:57 Pelger-[place]uet Anomaly Not Reportable 08/09/17 10:57 Noa Rods Not Reportable 08/09/17 10:57 Platelet Estimate Consistent w auto 08/09/17 10:57 Clumped Platelets Not Reportable 08/09/17 10:57 Plt Clumps, EDTA Not Reportable 08/09/17 10:57 Large Platelets Not Reportable 08/09/17 10:57 Giant Platelets Few 08/09/17 10:57 Platelet Satelliting Not Reportable 08/09/17 10:57 Plt Morphology Comment Not Reportable 08/09/17 10:57 RBC Morphology Not Reportable 08/09/17 10:57 Dimorphic RBCs Not Reportable 08/09/17 10:57 Polychromasia Not Reportable 08/09/17 10:57 Hypochromasia 1+ 08/09/17 10:57 Poikilocytosis 1+ 08/09/17 10:57 Anisocytosis 1+ 08/09/17 10:57 Microcytosis 1+ 08/09/17 10:57 Macrocytosis Not Reportable 08/09/17 10:57 Spherocytes Not Reportable 08/09/17 10:57 Pappenheimer Bodies Not Reportable 08/09/17 10:57 Sickle Cells Not Reportable 08/09/17 10:57 Target Cells Not Reportable 08/09/17 10:57 Tear Drop Cells Not Reportable 08/09/17 10:57 Ovalocytes Few 08/09/17 10:57 Stomatocytes 1+ 08/09/17 10:57 Helmet Cells Not Reportable 08/09/17 10:57 [place] Bodies Not Reportable 08/09/17 10:57 [place] Rings Not Reportable 08/09/17 10:57 [place] Cells Not Reportable 08/09/17 10:57 Bite Cells Not Reportable 08/09/17 10:57 Crenated Cell Not Reportable 08/09/17 10:57 Elliptocytes Not Reportable 08/09/17 10:57 Acanthocytes (Spur) Not Reportable 08/09/17 10:57 Rouleaux Not Reportable 08/09/17 10:57 Hemoglobin C Crystals Not Reportable 08/09/17 10:57 Schistocytes Not Reportable 08/09/17 10:57 [place] parasites Not Reportable 08/09/17 10:57 Cuco Bodies Not Reportable 08/09/17 10:57 Hem Pathologist Commnt No 08/09/17 10:57 PT 29.0 Sec. (12.2-14.9) H 08/27/17 05:00 INR 2.53 (0.87-1.13) H 08/27/17 05:00 APTT 29.0 Sec. (24.2-36.6) 08/14/17 10:36 D-Dimer 1693.79 ng/mlDDU (0-234) H 08/17/17 21:48 Heparin Anti-Xa Level 0.43 U.I./ml (0.3-0.7) 08/17/17 05:58 POC ABG pH 7.471 (7.35-7.45) H 08/15/17 04:20 POC ABG pCO2 53.8 (35-45) H 08/15/17 04:20 POC ABG pO2 81 (80-105) 08/15/17 04:20 POC ABG HCO3 39.3 08/15/17 04:20 POC ABG Total CO2 41 08/15/17 04:20 POC ABG O2 Sat 96 08/15/17 04:20 POC ABG Base Excess 16 08/15/17 04:20 VBG pH 7.463 (7.320-7.420) H 08/07/17 16:58 FiO2 100 % 08/15/17 04:20 Sodium 141 mmol/L (137-145) 08/27/17 04:00 Potassium 3.6 mmol/L (3.6-5.0) 08/27/17 04:00 Chloride 90.7 mmol/L (98-107) L 08/27/17 04:00 Carbon Dioxide 35 mmol/L (22-30) H 08/27/17 04:00 Anion Gap 19 mmol/L 08/27/17 04:00 BUN 13 mg/dL (9-20) 08/27/17 04:00 Creatinine 0.8 mg/dL (0.8-1.5) 08/27/17 04:00 Estimated GFR > 60 ml/min 08/27/17 04:00 BUN/Creatinine Ratio 16 % 08/27/17 04:00 Glucose 147 mg/dL (75-100) H 08/27/17 04:00 POC Glucose 185 (70-105) H 08/26/17 21:32 Lactic Acid 0.90 mmol/L (0.7-2.0) 08/08/17 06:01 Calcium 9.1 mg/dL (8.4-10.2) 08/27/17 04:00 Magnesium 2.00 mg/dL (1.7-2.3) 08/27/17 04:00 Total Bilirubin 0.70 mg/dL (0.1-1.2) 08/16/17 14:04 Direct Bilirubin 0.2 mg/dL (0-0.2) 08/11/17 07:12 Indirect Bilirubin 0.3 mg/dL 08/11/17 07:12 AST 11 units/L (5-40) 08/16/17 14:04 ALT 10 units/L (7-56) 08/16/17 14:04 Alkaline Phosphatase 68 units/L (35-129) 08/16/17 14:04 NT-Pro-B Natriuret Pep 6070 pg/mL (0-450) H 08/14/17 10:36 Total Protein 5.8 g/dL (6.3-8.2) L 08/16/17 14:04 Albumin 3.0 g/dL (3.9-5) L 08/16/17 14:04 Albumin/Globulin Ratio 1.1 % 08/16/17 14:04 TSH 4.780 mlU/mL (0.270-4.200) H 08/11/17 07:12 Free T4 0.86 ng/dL (0.76-1.46) 08/11/17 07:12
--- NOTE | 2017-08-27 15:34 | Progress Note ---
Assessment and Plan Imp: 1. RUSSEL 2. OHS 3. Morbid obesity 4. A/C respiratory failure, hypoxia and hypercapnea 5. NICMP 6. A/C systolic CHF 7. Pulm HTN 2/2 above Rec: 1. Diuresis 2. BIPAP QHS and prn 3. Agree w/ home NIV and O2 4. Weight loss 5. Wean O2 to keep sats 88-94% -> asked RT to be more aggressive weaning 6. Incentive anthony ordered again 7. Will follow; complex patient/decision-making Plan of care reviewed with patient, he understands/agrees Subjective Date of service: 08/27/17 Principal diagnosis: heart failure, hypercapnic respiratory failure, severe morbid obesity Interval history: No events. Remains on HFNC at 15LPM and 45%. SOB better. No new complaints. Active Medications Acetaminophen (Tylenol) 650 mg PO Q4H PRN PRN Reason: /Fever >100.5/ARENAS Last Admin: 08/10/17 09:28 Dose: 650 mg Albuterol (Proventil) 2.5 mg IH Q4HRT PRN PRN Reason: Shortness Of Breath Last Admin: 08/19/17 20:22 Dose: 2.5 mg Bisacodyl (Dulcolax) 10 mg [place] QDAY PRN PRN Reason: Constipation unrelieved by MOM Furosemide (Lasix) 40 mg IV Q8H [facility] Last Admin: 08/27/17 09:34 Dose: 40 mg Guaifenesin (Guaifenesin Dm Syrup) 10 ml PO Q6H PRN PRN Reason: Cough Last Admin: 08/23/17 22:33 Dose: 10 ml Ibuprofen (Motrin) 600 mg PO Q8H PRN PRN Reason: Pain, Mild (1-3) Last Admin: 08/17/17 17:30 Dose: 600 mg Insulin Aspart (Novolog) 0 units SUB-Q ACHS [facility] PRN Reason: Protocol Last Admin: 08/27/17 11:30 Dose: Not Given Magnesium Hydroxide (Milk Of Magnesia) 30 ml PO Q4H PRN PRN Reason: Constipation Ondansetron HCl (Zofran) 4 mg IV Q8H PRN PRN Reason: N/V unrelieved by Reglan Last Admin: 08/07/17 23:02 Dose: 4 mg Potassium Chloride (K-Dur) 20 meq PO QDAY [facility] Last Admin: 08/27/17 09:34 Dose: 20 meq Warfarin Sodium (Coumadin Pharmacy To Dose) 1 each PO PKCONSULT [facility] Warfarin Sodium (Coumadin) 7.5 mg PO DAILY@1700 [facility] Last Admin: 08/26/17 17:00 Dose: 7.5 mg Objective Vital Signs - 12hr 08/27/17 08/27/17 08/27/17 09:21 10:00 11:41 Temperature 98.3 F 97.9 F Pulse Rate 86 81 89 Pulse Rate [ 86 From Monitor] Respiratory 20 Rate Blood Pressure 117/64 Blood Pressure 123/79 [Left] O2 Sat by Pulse 96 Oximetry Constitutional: no acute distress, alert Eyes: non-icteric ENT: oropharynx moist Neck: other (extremely large in circumference) Effort: normal Ascultation: Bilateral: clear Cardiovascular: regular rate and rhythm (no mrg) Gastrointestinal: normoactive bowel sounds, soft, non-tender, non-distended, other (obese) Integumentary: other (chronic venous stasis changes LEs) Extremities: no cyanosis, edema (lymphedema), other (bilateral lymphedema with chronic changes) Neurologic: normal mental status, non-focal exam, pupils equal and round, CN II- XII normal Psychiatric: mood appropriate, affect normal CBC and BMP: 08/27/17 04:00 08/27/17 04:00 ABG, PT/INR, D-dimer: ABG POC ABG pH 7.471 (7.35-7.45) H 08/15/17 04:20 POC ABG pCO2 53.8 (35-45) H 08/15/17 04:20 POC ABG pO2 81 (80-105) 08/15/17 04:20 POC ABG HCO3 39.3 08/15/17 04:20 POC ABG Total CO2 41 08/15/17 04:20 POC ABG O2 Sat 96 08/15/17 04:20 PT/INR, D-dimer PT 29.0 Sec. (12.2-14.9) H 08/27/17 05:00 INR 2.53 (0.87-1.13) H 08/27/17 05:00 D-Dimer 1693.79 ng/mlDDU (0-234) H 08/17/17 21:48 Abnormal lab findings: Abnormal Labs 02/01/18 02/01/18 02/01/18 16:58 16:58 16:58 WBC 16.1 H RBC 5.44 H Hgb Hct MCV 74 L MCH 22 L MCHC 29 L RDW 21.7 H Richardson % (Auto) Eos % (Auto) Richardson # Eos # Seg Neutrophils % Seg Neuts % (Manual) 87.0 H Lymphocytes % (Manual) 7.0 L Monocytes % (Manual) Eosinophils % (Manual) Basophils % (Manual) 2.0 H Seg Neutrophils # Man 14.0 H Lymphocytes # (Manual) 1.1 L Monocytes # (Manual) Eosinophils # (Manual) Basophils # (Manual) 0.3 H PT 16.2 H INR 1.23 H D-Dimer Heparin Anti-Xa Level POC ABG pH POC ABG pCO2 POC ABG pO2 VBG pH Potassium Chloride 96.2 L Carbon Dioxide 31 H BUN Glucose POC Glucose Lactic Acid Calcium Magnesium NT-Pro-B Natriuret Pep Total Protein 5.8 L Albumin 3.0 L TSH 08/07/17 08/07/17 08/07/17 16:58 16:58 16:58 WBC RBC Hgb Hct MCV MCH MCHC RDW Richardson % (Auto) Eos % (Auto) Richardson # Eos # Seg Neutrophils % Seg Neuts % (Manual) Lymphocytes % (Manual) Monocytes % (Manual) Eosinophils % (Manual) Basophils % (Manual) Seg Neutrophils # Man Lymphocytes # (Manual) Monocytes # (Manual) Eosinophils # (Manual) Basophils # (Manual) PT INR D-Dimer Heparin Anti-Xa Level POC ABG pH POC ABG pCO2 POC ABG pO2 VBG pH 7.463 H Potassium Chloride Carbon Dioxide BUN Glucose POC Glucose Lactic Acid 2.10 H* Calcium Magnesium NT-Pro-B Natriuret Pep 2205 H Total Protein Albumin TSH 08/09/17 08/09/17 08/10/17 10:57 13:37 08:04 WBC 14.5 H RBC Hgb 10.8 L 10.8 L Hct 35.1 L MCV 74 L 76 L MCH 23 L 23 L MCHC 31 L 30 L RDW 21.2 H 21.0 H Richardson % (Auto) Eos % (Auto) Richardson # Eos # Seg Neutrophils % 75.4 H Seg Neuts % (Manual) Lymphocytes % (Manual) Monocytes % (Manual) 9.0 H Eosinophils % (Manual) 5.0 H Basophils % (Manual) Seg Neutrophils # Man 9.3 H Lymphocytes # (Manual) Monocytes # (Manual) 1.3 H Eosinophils # (Manual) 0.7 H Basophils # (Manual) PT INR D-Dimer Heparin Anti-Xa Level POC ABG pH POC ABG pCO2 POC ABG pO2 VBG pH Potassium Chloride 96.9 L Carbon Dioxide 32 H BUN Glucose POC Glucose Lactic Acid Calcium 8.3 L Magnesium NT-Pro-B Natriuret Pep Total Protein Albumin TSH 08/10/17 08/10/17 08/10/17 08:04 08:04 14:50 WBC RBC Hgb Hct MCV MCH MCHC RDW Richardson % (Auto) Eos % (Auto) Richardson # Eos # Seg Neutrophils % Seg Neuts % (Manual) Lymphocytes % (Manual) Monocytes % (Manual) Eosinophils % (Manual) Basophils % (Manual) Seg Neutrophils # Man Lymphocytes # (Manual) Monocytes # (Manual) Eosinophils # (Manual) Basophils # (Manual) PT INR D-Dimer Heparin Anti-Xa Level POC ABG pH POC ABG pCO2 65.9 H POC ABG pO2 VBG pH Potassium Chloride Carbon Dioxide 32 H BUN Glucose 115 H POC Glucose Lactic Acid Calcium Magnesium NT-Pro-B Natriuret Pep Total Protein Albumin TSH 4.900 H 08/11/17 08/11/17 08/11/17 07:12 07:12 07:12 WBC RBC Hgb 10.3 L Hct MCV 76 L MCH 22 L MCHC 29 L RDW 21.4 H Richardson % (Auto) 8.8 H Eos % (Auto) Richardson # Eos # Seg Neutrophils % Seg Neuts % (Manual) Lymphocytes % (Manual) Monocytes % (Manual) Eosinophils % (Manual) Basophils % (Manual) Seg Neutrophils # Man Lymphocytes # (Manual) Monocytes # (Manual) Eosinophils # (Manual) Basophils # (Manual) PT INR D-Dimer Heparin Anti-Xa Level POC ABG pH POC ABG pCO2 POC ABG pO2 VBG pH Potassium Chloride Carbon Dioxide 35 H BUN Glucose 105 H POC Glucose Lactic Acid Calcium Magnesium NT-Pro-B Natriuret Pep Total Protein 5.8 L Albumin 3.1 L TSH 4.780 H 08/12/17 08/12/17 08/13/17 04:31 04:31 11:34 WBC RBC Hgb 10.7 L Hct 35.3 L MCV 76 L MCH 23 L MCHC 30 L RDW 21.3 H Richardson % (Auto) Eos % (Auto) Richardson # Eos # Seg Neutrophils % Seg Neuts % (Manual) Lymphocytes % (Manual) Monocytes % (Manual) Eosinophils % (Manual) Basophils % (Manual) Seg Neutrophils # Man Lymphocytes # (Manual) Monocytes # (Manual) Eosinophils # (Manual) Basophils # (Manual) PT INR D-Dimer Heparin Anti-Xa Level POC ABG pH POC ABG pCO2 61.1 H POC ABG pO2 57 L VBG pH Potassium Chloride 95.8 L Carbon Dioxide 33 H BUN Glucose POC Glucose Lactic Acid Calcium Magnesium NT-Pro-B Natriuret Pep Total Protein 5.8 L Albumin 3.0 L TSH 08/14/17 08/14/17 08/14/17 10:36 10:36 10:36 WBC RBC Hgb 10.7 L Hct MCV MCH MCHC RDW Richardson % (Auto) Eos % (Auto) Richardson # Eos # Seg Neutrophils % Seg Neuts % (Manual) Lymphocytes % (Manual) Monocytes % (Manual) Eosinophils % (Manual) Basophils % (Manual) Seg Neutrophils # Man Lymphocytes # (Manual) Monocytes # (Manual) Eosinophils # (Manual) Basophils # (Manual) PT 15.8 H INR 1.20 H D-Dimer Heparin Anti-Xa Level POC ABG pH POC ABG pCO2 POC ABG pO2 VBG pH Potassium Chloride Carbon Dioxide BUN Glucose POC Glucose Lactic Acid Calcium Magnesium NT-Pro-B Natriuret Pep 6070 H Total Protein Albumin TSH 08/14/17 08/14/17 08/14/17 17:23 20:37 23:18 WBC RBC Hgb Hct MCV MCH MCHC RDW Richardson % (Auto) Eos % (Auto) Richardson # Eos # Seg Neutrophils % Seg Neuts % (Manual) Lymphocytes % (Manual) Monocytes % (Manual) Eosinophils % (Manual) Basophils % (Manual) Seg Neutrophils # Man Lymphocytes # (Manual) Monocytes # (Manual) Eosinophils # (Manual) Basophils # (Manual) PT INR D-Dimer Heparin Anti-Xa Level < 0.10 L POC ABG pH 7.566 H 7.494 H POC ABG pCO2 51.6 H POC ABG pO2 45 L 52 L VBG pH Potassium Chloride Carbon Dioxide BUN Glucose POC Glucose Lactic Acid Calcium Magnesium NT-Pro-B Natriuret Pep Total Protein Albumin TSH 08/15/17 08/15/17 08/15/17 04:15 04:20 08:26 WBC RBC Hgb Hct MCV MCH MCHC RDW Richardson % (Auto) Eos % (Auto) Richardson # Eos # Seg Neutrophils % Seg Neuts % (Manual) Lymphocytes % (Manual) Monocytes % (Manual) Eosinophils % (Manual) Basophils % (Manual) Seg Neutrophils # Man Lymphocytes # (Manual) Monocytes # (Manual) Eosinophils # (Manual) Basophils # (Manual) PT 16.3 H INR 1.24 H D-Dimer Heparin Anti-Xa Level 0.12 L POC ABG pH 7.471 H POC ABG pCO2 53.8 H POC ABG pO2 VBG pH Potassium Chloride Carbon Dioxide BUN Glucose POC Glucose Lactic Acid Calcium Magnesium NT-Pro-B Natriuret Pep Total Protein Albumin [facility] 08/15/17 08/16/17 08/16/17 22:00 05:25 05:25 WBC RBC Hgb 11.1 L Hct MCV MCH MCHC RDW Richardson % (Auto) Eos % (Auto) Richardson # Eos # Seg Neutrophils % Seg Neuts % (Manual) Lymphocytes % (Manual) Monocytes % (Manual) Eosinophils % (Manual) Basophils % (Manual) Seg Neutrophils # Man Lymphocytes # (Manual) Monocytes # (Manual) Eosinophils # (Manual) Basophils # (Manual) PT 20.1 H INR 1.61 H D-Dimer Heparin Anti-Xa Level 0.17 L 0.28 L POC ABG pH POC ABG pCO2 POC ABG pO2 VBG pH Potassium Chloride Carbon Dioxide BUN Glucose POC Glucose Lactic Acid Calcium Magnesium NT-Pro-B Natriuret Pep Total Protein Albumin [facility] 08/16/17 08/16/17 08/17/17 14:04 14:04 05:58 WBC RBC 5.10 H Hgb 11.2 L Hct MCV 75 L MCH 22 L MCHC 29 L RDW 20.9 H Richardson % (Auto) Eos % (Auto) Richardson # Eos # Seg Neutrophils % Seg Neuts % (Manual) Lymphocytes % (Manual) Monocytes % (Manual) Eosinophils % (Manual) Basophils % (Manual) Seg Neutrophils # Man Lymphocytes # (Manual) Monocytes # (Manual) Eosinophils # (Manual) Basophils # (Manual) PT 34.7 H INR 3.20 H D-Dimer Heparin Anti-Xa Level POC ABG pH POC ABG pCO2 POC ABG pO2 VBG pH Potassium 3.5 L Chloride 93.1 L Carbon Dioxide 37 H BUN 27 H Glucose 226 H POC Glucose Lactic Acid Calcium Magnesium NT-Pro-B Natriuret Pep Total Protein 5.8 L Albumin 3.0 L TSH 08/17/17 08/18/17 08/18/17 21:48 04:00 05:23 WBC RBC Hgb 11.3 L Hct MCV MCH MCHC RDW Richardson % (Auto) Eos % (Auto) Richardson # Eos # Seg Neutrophils % Seg Neuts % (Manual) Lymphocytes % (Manual) Monocytes % (Manual) Eosinophils % (Manual) Basophils % (Manual) Seg Neutrophils # Man Lymphocytes # (Manual) Monocytes # (Manual) Eosinophils # (Manual) Basophils # (Manual) PT 24.2 H INR 2.04 H D-Dimer 1693.79 H Heparin Anti-Xa Level POC ABG pH POC ABG pCO2 POC ABG pO2 VBG pH Potassium Chloride Carbon Dioxide BUN Glucose POC Glucose Lactic Acid Calcium Magnesium NT-Pro-B Natriuret Pep Total Protein Albumin TSH 08/18/17 08/19/17 08/20/17 05:23 04:30 03:00 WBC RBC Hgb 11.7 L Hct MCV MCH MCHC RDW Richardson % (Auto) Eos % (Auto) Richardson # Eos # Seg Neutrophils % Seg Neuts % (Manual) Lymphocytes % (Manual) Monocytes % (Manual) Eosinophils % (Manual) Basophils % (Manual) Seg Neutrophils # Man Lymphocytes # (Manual) Monocytes # (Manual) Eosinophils # (Manual) Basophils # (Manual) PT 20.0 H INR 1.60 H D-Dimer Heparin Anti-Xa Level POC ABG pH POC ABG pCO2 POC ABG pO2 VBG pH Potassium Chloride 86.8 L Carbon Dioxide 38 H BUN 33 H Glucose 355 H POC Glucose Lactic Acid Calcium Magnesium NT-Pro-B Natriuret Pep Total Protein Albumin [facility] 08/20/17 08/20/17 08/20/17 03:00 03:00 17:37 WBC RBC Hgb Hct MCV MCH MCHC RDW Richardson % (Auto) Eos % (Auto) Richardson # Eos # Seg Neutrophils % Seg Neuts % (Manual) Lymphocytes % (Manual) Monocytes % (Manual) Eosinophils % (Manual) Basophils % (Manual) Seg Neutrophils # Man Lymphocytes # (Manual) Monocytes # (Manual) Eosinophils # (Manual) Basophils # (Manual) PT 22.7 H INR 1.87 H D-Dimer Heparin Anti-Xa Level POC ABG pH POC ABG pCO2 POC ABG pO2 VBG pH Potassium Chloride 91.3 L Carbon Dioxide 38 H BUN 34 H Glucose 391 H POC Glucose 312 H Lactic Acid Calcium Magnesium NT-Pro-B Natriuret Pep Total Protein Albumin [facility] 08/20/17 08/21/17 08/21/17 22:34 06:40 08:22 WBC RBC Hgb Hct MCV MCH MCHC RDW Richardson % (Auto) Eos % (Auto) Richardson # Eos # Seg Neutrophils % Seg Neuts % (Manual) Lymphocytes % (Manual) Monocytes % (Manual) Eosinophils % (Manual) Basophils % (Manual) Seg Neutrophils # Man Lymphocytes # (Manual) Monocytes # (Manual) Eosinophils # (Manual) Basophils # (Manual) PT 28.6 H INR 2.49 H D-Dimer Heparin Anti-Xa Level POC ABG pH POC ABG pCO2 POC ABG pO2 VBG pH Potassium Chloride Carbon Dioxide BUN Glucose POC Glucose 166 H 123 H Lactic Acid Calcium Magnesium NT-Pro-B Natriuret Pep Total Protein Albumin TSH 08/21/17 08/21/17 08/21/17 12:29 17:08 21:17 WBC RBC Hgb Hct MCV MCH MCHC RDW Richardson % (Auto) Eos % (Auto) Richardson # Eos # Seg Neutrophils % Seg Neuts % (Manual) Lymphocytes % (Manual) Monocytes % (Manual) Eosinophils % (Manual) Basophils % (Manual) Seg Neutrophils # Man Lymphocytes # (Manual) Monocytes # (Manual) Eosinophils # (Manual) Basophils # (Manual) PT INR D-Dimer Heparin Anti-Xa Level POC ABG pH POC ABG pCO2 POC ABG pO2 VBG pH Potassium Chloride Carbon Dioxide BUN Glucose POC Glucose 182 H 135 H 145 H Lactic Acid Calcium Magnesium NT-Pro-B Natriuret Pep Total Protein Albumin [facility] 08/22/17 08/22/17 08/22/17 04:00 05:00 08:35 WBC RBC Hgb Hct MCV MCH MCHC RDW Richardson % (Auto) Eos % (Auto) Richardson # Eos # Seg Neutrophils % Seg Neuts % (Manual) Lymphocytes % (Manual) Monocytes % (Manual) Eosinophils % (Manual) Basophils % (Manual) Seg Neutrophils # Man Lymphocytes # (Manual) Monocytes # (Manual) Eosinophils # (Manual) Basophils # (Manual) PT 27.6 H INR 2.38 H D-Dimer Heparin Anti-Xa Level POC ABG pH POC ABG pCO2 POC ABG pO2 VBG pH Potassium Chloride 90.8 L Carbon Dioxide 40 H BUN 30 H Glucose 149 H POC Glucose 132 H Lactic Acid Calcium Magnesium 2.40 H NT-Pro-B Natriuret Pep Total Protein Albumin TSH 08/22/17 08/22/17 08/22/17 13:54 16:38 21:07 WBC RBC Hgb Hct MCV MCH MCHC RDW Richardson % (Auto) Eos % (Auto) Richardson # Eos # Seg Neutrophils % Seg Neuts % (Manual) Lymphocytes % (Manual) Monocytes % (Manual) Eosinophils % (Manual) Basophils % (Manual) Seg Neutrophils # Man Lymphocytes # (Manual) Monocytes # (Manual) Eosinophils # (Manual) Basophils # (Manual) PT INR D-Dimer Heparin Anti-Xa Level POC ABG pH POC ABG pCO2 POC ABG pO2 VBG pH Potassium Chloride Carbon Dioxide BUN Glucose POC Glucose 189 H 192 H 181 H Lactic Acid Calcium Magnesium NT-Pro-B Natriuret Pep Total Protein Albumin TSH 08/23/17 08/23/17 08/23/17 05:25 08:18 12:27 WBC RBC Hgb Hct MCV MCH MCHC RDW Richardson % (Auto) Eos % (Auto) Richardson # Eos # Seg Neutrophils % Seg Neuts % (Manual) Lymphocytes % (Manual) Monocytes % (Manual) Eosinophils % (Manual) Basophils % (Manual) Seg Neutrophils # Man Lymphocytes # (Manual) Monocytes # (Manual) Eosinophils # (Manual) Basophils # (Manual) PT 28.2 H INR 2.45 H D-Dimer Heparin Anti-Xa Level POC ABG pH POC ABG pCO2 POC ABG pO2 VBG pH Potassium Chloride Carbon Dioxide BUN Glucose POC Glucose 168 H 109 H Lactic Acid Calcium Magnesium NT-Pro-B Natriuret Pep Total Protein Albumin TSH 08/23/17 08/24/17 08/24/17 16:49 08:00 08:24 WBC RBC Hgb Hct MCV MCH MCHC RDW Richardson % (Auto) Eos % (Auto) Richardson # Eos # Seg Neutrophils % Seg Neuts % (Manual) Lymphocytes % (Manual) Monocytes % (Manual) Eosinophils % (Manual) Basophils % (Manual) Seg Neutrophils # Man Lymphocytes # (Manual) Monocytes # (Manual) Eosinophils # (Manual) Basophils # (Manual) PT 29.3 H INR 2.57 H D-Dimer Heparin Anti-Xa Level POC ABG pH POC ABG pCO2 POC ABG pO2 VBG pH Potassium Chloride Carbon Dioxide BUN Glucose POC Glucose 117 H 144 H Lactic Acid Calcium Magnesium NT-Pro-B Natriuret Pep Total Protein Albumin TSH 08/24/17 08/24/17 08/24/17 12:57 16:23 21:13 WBC RBC Hgb Hct MCV MCH MCHC RDW Richardson % (Auto) Eos % (Auto) Richardson # Eos # Seg Neutrophils % Seg Neuts % (Manual) Lymphocytes % (Manual) Monocytes % (Manual) Eosinophils % (Manual) Basophils % (Manual) Seg Neutrophils # Man Lymphocytes # (Manual) Monocytes # (Manual) Eosinophils # (Manual) Basophils # (Manual) PT INR D-Dimer Heparin Anti-Xa Level POC ABG pH POC ABG pCO2 POC ABG pO2 VBG pH Potassium Chloride Carbon Dioxide BUN Glucose POC Glucose 113 H 145 H 209 H Lactic Acid Calcium Magnesium NT-Pro-B Natriuret Pep Total Protein Albumin [facility] 08/25/17 08/25/17 08/25/17 05:00 08:07 12:00 WBC RBC Hgb Hct MCV MCH MCHC RDW Richardson % (Auto) Eos % (Auto) Richardson # Eos # Seg Neutrophils % Seg Neuts % (Manual) Lymphocytes % (Manual) Monocytes % (Manual) Eosinophils % (Manual) Basophils % (Manual) Seg Neutrophils # Man Lymphocytes # (Manual) Monocytes # (Manual) Eosinophils # (Manual) Basophils # (Manual) PT 29.1 H INR 2.55 H D-Dimer Heparin Anti-Xa Level POC ABG pH POC ABG pCO2 POC ABG pO2 VBG pH Potassium Chloride Carbon Dioxide BUN Glucose POC Glucose 129 H 125 H Lactic Acid Calcium Magnesium NT-Pro-B Natriuret Pep Total Protein Albumin [facility] 08/25/17 08/25/17 08/26/17 17:04 22:11 06:15 WBC RBC Hgb Hct MCV MCH MCHC RDW Richardson % (Auto) Eos % (Auto) Richardson # Eos # Seg Neutrophils % Seg Neuts % (Manual) Lymphocytes % (Manual) Monocytes % (Manual) Eosinophils % (Manual) Basophils % (Manual) Seg Neutrophils # Man Lymphocytes # (Manual) Monocytes # (Manual) Eosinophils # (Manual) Basophils # (Manual) PT 29.1 H INR 2.55 H D-Dimer Heparin Anti-Xa Level POC ABG pH POC ABG pCO2 POC ABG pO2 VBG pH Potassium Chloride Carbon Dioxide BUN Glucose POC Glucose 124 H 130 H Lactic Acid Calcium Magnesium NT-Pro-B Natriuret Pep Total Protein Albumin TSH 08/26/17 08/26/17 08/26/17 09:04 12:13 21:32 WBC RBC Hgb Hct MCV MCH MCHC RDW Richardson % (Auto) Eos % (Auto) Richardson # Eos # Seg Neutrophils % Seg Neuts % (Manual) Lymphocytes % (Manual) Monocytes % (Manual) Eosinophils % (Manual) Basophils % (Manual) Seg Neutrophils # Man Lymphocytes # (Manual) Monocytes # (Manual) Eosinophils # (Manual) Basophils # (Manual) PT INR D-Dimer Heparin Anti-Xa Level POC ABG pH POC ABG pCO2 POC ABG pO2 VBG pH Potassium Chloride Carbon Dioxide BUN Glucose POC Glucose 137 H 201 H 185 H Lactic Acid Calcium Magnesium NT-Pro-B Natriuret Pep Total Protein Albumin TSH 08/27/17 08/27/17 08/27/17 04:00 04:00 05:00 WBC RBC 5.15 H Hgb Hct MCV 74 L MCH 23 L MCHC 31 L RDW 20.4 H Richardson % (Auto) 11.0 H Eos % (Auto) 5.2 H Richardson # 1.2 H Eos # 0.6 H Seg Neutrophils % Seg Neuts % (Manual) Lymphocytes % (Manual) Monocytes % (Manual) Eosinophils % (Manual) Basophils % (Manual) Seg Neutrophils # Man Lymphocytes # (Manual) Monocytes # (Manual) Eosinophils # (Manual) Basophils # (Manual) PT 29.0 H INR 2.53 H D-Dimer Heparin Anti-Xa Level POC ABG pH POC ABG pCO2 POC ABG pO2 VBG pH Potassium Chloride 90.7 L Carbon Dioxide 35 H BUN Glucose 147 H POC Glucose Lactic Acid Calcium Magnesium NT-Pro-B Natriuret Pep Total Protein Albumin TSH Chest x-ray: report reviewed, image reviewed
[2017-08-27] MEDS: COUMADIN PO SCH (17:19)
[2017-08-28] MEDS: LASIX IV SCH ×3 (02:53→17:35)
[2017-08-28 07:20] LABS: INR 2.27 (0.87-1.13)
[2017-08-28] MEDS: NOVOLOG SUB-Q SCH ×4 (10:07→22:47)
[2017-08-28] MEDS: K-DUR PO SCH (11:02)
--- NOTE | 2017-08-28 14:22 | Progress Note ---
Assessment and Plan Imp: 1. RUSSEL 2. OHS 3. Morbid obesity 4. A/C respiratory failure, hypoxia and hypercapnea 5. NICMP 6. A/C systolic CHF 7. Pulm HTN 2/2 above Rec: 1. Diuresis 2. BIPAP QHS and prn 3. Agree w/ home NIV and O2 4. Weight loss 5. Wean O2 to keep sats 88-94% -> asked RT to be more aggressive weaning 6. Incentive anthony ordered again now for the 3rd and 4th times 7. Will follow; complex patient/decision-making Plan of care reviewed with patient, he understands/agrees Subjective Date of service: 08/28/17 Principal diagnosis: heart failure, hypercapnic respiratory failure, severe morbid obesity Interval history: No events. Remains on HFNC at 15LPM and 40%. SOB better. No new complaints. Active Medications Acetaminophen (Tylenol) 650 mg PO Q4H PRN PRN Reason: /Fever >100.5/ARENAS Last Admin: 08/10/17 09:28 Dose: 650 mg Albuterol (Proventil) 2.5 mg IH Q4HRT PRN PRN Reason: Shortness Of Breath Last Admin: 08/19/17 20:22 Dose: 2.5 mg Bisacodyl (Dulcolax) 10 mg MO QDAY PRN PRN Reason: Constipation unrelieved by MOM Furosemide (Lasix) 40 mg IV Q8H [facility] Last Admin: 08/28/17 11:04 Dose: 40 mg Guaifenesin (Guaifenesin Dm Syrup) 10 ml PO Q6H PRN PRN Reason: Cough Last Admin: 08/23/17 22:33 Dose: 10 ml Ibuprofen (Motrin) 600 mg PO Q8H PRN PRN Reason: Pain, Mild (1-3) Last Admin: 08/17/17 17:30 Dose: 600 mg Insulin Aspart (Novolog) 0 units SUB-Q ACHS MICHELLE PRN Reason: Protocol Last Admin: 08/28/17 12:41 Dose: 3 units Magnesium Hydroxide (Milk Of Magnesia) 30 ml PO Q4H PRN PRN Reason: Constipation Ondansetron HCl (Zofran) 4 mg IV Q8H PRN PRN Reason: N/V unrelieved by Reglan Last Admin: 08/07/17 23:02 Dose: 4 mg Potassium Chloride (K-Dur) 20 meq PO QDAY [facility] Last Admin: 08/28/17 11:02 Dose: 20 meq Warfarin Sodium (Coumadin Pharmacy To Dose) 1 each PO PKCONSULT [facility] Warfarin Sodium (Coumadin) 7.5 mg PO DAILY@1700 [facility] Last Admin: 08/27/17 17:19 Dose: 7.5 mg Objective Vital Signs - 12hr 08/28/17 08/28/17 08/28/17 04:41 09:45 09:59 Temperature Pulse Rate 89 93 H Respiratory 20 Rate Blood Pressure [Left] O2 Sat by Pulse 95 95 Oximetry 08/28/17 08/28/17 08/28/17 10:02 10:03 13:12 Temperature 97.9 F 97.9 F 98.0 F Pulse Rate 84 84 76 Respiratory 20 20 20 Rate Blood Pressure 109/48 109/48 102/48 [Left] O2 Sat by Pulse 96 94 Oximetry 08/28/17 13:59 Temperature Pulse Rate Respiratory Rate Blood Pressure [Left] O2 Sat by Pulse 96 Oximetry Constitutional: no acute distress, alert Eyes: non-icteric ENT: oropharynx moist Neck: other (extremely large in circumference) Effort: normal Ascultation: Bilateral: clear Percussion: Bilateral: not dull Cardiovascular: regular rate and rhythm (no mrg) Gastrointestinal: normoactive bowel sounds, soft, non-tender, non-distended, other (obese) Integumentary: other (chronic venous stasis changes LEs) Extremities: no cyanosis, edema (lymphedema), other (bilateral lymphedema with chronic changes) Neurologic: normal mental status, non-focal exam, pupils equal and round, CN II- XII normal Psychiatric: mood appropriate, affect normal CBC and BMP: 08/27/17 04:00 08/27/17 04:00 ABG, PT/INR, D-dimer: ABG POC ABG pH 7.471 (7.35-7.45) H 08/15/17 04:20 POC ABG pCO2 53.8 (35-45) H 08/15/17 04:20 POC ABG pO2 81 (80-105) 08/15/17 04:20 POC ABG HCO3 39.3 08/15/17 04:20 POC ABG Total CO2 41 08/15/17 04:20 POC ABG O2 Sat 96 08/15/17 04:20 PT/INR, D-dimer PT 26.5 Sec. (12.2-14.9) H 08/28/17 06:38 INR 2.27 (0.87-1.13) H 08/28/17 06:38 D-Dimer 1693.79 ng/mlDDU (0-234) H 08/17/17 21:48 Abnormal lab findings: Abnormal Labs 08/07/17 08/07/17 08/07/17 16:58 16:58 16:58 WBC 16.1 H RBC 5.44 H Hgb Hct MCV 74 L MCH 22 L MCHC 29 L RDW 21.7 H [place] % (Auto) Eos % (Auto) [place] # Eos # Seg Neutrophils % Seg Neuts % (Manual) 87.0 H Lymphocytes % (Manual) 7.0 L Monocytes % (Manual) Eosinophils % (Manual) Basophils % (Manual) 2.0 H Seg Neutrophils # Man 14.0 H Lymphocytes # (Manual) 1.1 L Monocytes # (Manual) Eosinophils # (Manual) Basophils # (Manual) 0.3 H PT 16.2 H INR 1.23 H D-Dimer Heparin Anti-Xa Level POC ABG pH POC ABG pCO2 POC ABG pO2 VBG pH Potassium Chloride 96.2 L Carbon Dioxide 31 H BUN Glucose POC Glucose Lactic Acid Calcium Magnesium NT-Pro-B Natriuret Pep Total Protein 5.8 L Albumin 3.0 L TSH 08/07/17 08/07/17 08/07/17 16:58 16:58 16:58 WBC RBC Hgb Hct MCV MCH MCHC RDW [place] % (Auto) Eos % (Auto) [place] # Eos # Seg Neutrophils % Seg Neuts % (Manual) Lymphocytes % (Manual) Monocytes % (Manual) Eosinophils % (Manual) Basophils % (Manual) Seg Neutrophils # Man Lymphocytes # (Manual) Monocytes # (Manual) Eosinophils # (Manual) Basophils # (Manual) PT INR D-Dimer Heparin Anti-Xa Level POC ABG pH POC ABG pCO2 POC ABG pO2 VBG pH 7.463 H Potassium Chloride Carbon Dioxide BUN Glucose POC Glucose Lactic Acid 2.10 H* Calcium Magnesium NT-Pro-B Natriuret Pep 2205 H Total Protein Albumin TSH 08/09/17 08/09/17 08/10/17 10:57 13:37 08:04 WBC 14.5 H RBC Hgb 10.8 L 10.8 L Hct 35.1 L MCV 74 L 76 L MCH 23 L 23 L MCHC 31 L 30 L RDW 21.2 H 21.0 H [place] % (Auto) Eos % (Auto) [place] # Eos # Seg Neutrophils % 75.4 H Seg Neuts % (Manual) Lymphocytes % (Manual) Monocytes % (Manual) 9.0 H Eosinophils % (Manual) 5.0 H Basophils % (Manual) Seg Neutrophils # Man 9.3 H Lymphocytes # (Manual) Monocytes # (Manual) 1.3 H Eosinophils # (Manual) 0.7 H Basophils # (Manual) PT INR D-Dimer Heparin Anti-Xa Level POC ABG pH POC ABG pCO2 POC ABG pO2 VBG pH Potassium Chloride 96.9 L Carbon Dioxide 32 H BUN Glucose POC Glucose Lactic Acid Calcium 8.3 L Magnesium NT-Pro-B Natriuret Pep Total Protein Albumin TSH 08/10/17 08/10/17 08/10/17 08:04 08:04 14:50 WBC RBC Hgb Hct MCV MCH MCHC RDW [place] % (Auto) Eos % (Auto) [place] # Eos # Seg Neutrophils % Seg Neuts % (Manual) Lymphocytes % (Manual) Monocytes % (Manual) Eosinophils % (Manual) Basophils % (Manual) Seg Neutrophils # Man Lymphocytes # (Manual) Monocytes # (Manual) Eosinophils # (Manual) Basophils # (Manual) PT INR D-Dimer Heparin Anti-Xa Level POC ABG pH POC ABG pCO2 65.9 H POC ABG pO2 VBG pH Potassium Chloride Carbon Dioxide 32 H BUN Glucose 115 H POC Glucose Lactic Acid Calcium Magnesium NT-Pro-B Natriuret Pep Total Protein Albumin TSH 4.900 H 08/11/17 08/11/17 08/11/17 07:12 07:12 07:12 WBC RBC Hgb 10.3 L Hct MCV 76 L MCH 22 L MCHC 29 L RDW 21.4 H [place] % (Auto) 8.8 H Eos % (Auto) [place] # Eos # Seg Neutrophils % Seg Neuts % (Manual) Lymphocytes % (Manual) Monocytes % (Manual) Eosinophils % (Manual) Basophils % (Manual) Seg Neutrophils # Man Lymphocytes # (Manual) Monocytes # (Manual) Eosinophils # (Manual) Basophils # (Manual) PT INR D-Dimer Heparin Anti-Xa Level POC ABG pH POC ABG pCO2 POC ABG pO2 VBG pH Potassium Chloride Carbon Dioxide 35 H BUN Glucose 105 H POC Glucose Lactic Acid Calcium Magnesium NT-Pro-B Natriuret Pep Total Protein 5.8 L Albumin 3.1 L TSH 4.780 H 08/12/17 08/12/17 08/13/17 04:31 04:31 11:34 WBC RBC Hgb 10.7 L Hct 35.3 L MCV 76 L MCH 23 L MCHC 30 L RDW 21.3 H [place] % (Auto) Eos % (Auto) [place] # Eos # Seg Neutrophils % Seg Neuts % (Manual) Lymphocytes % (Manual) Monocytes % (Manual) Eosinophils % (Manual) Basophils % (Manual) Seg Neutrophils # Man Lymphocytes # (Manual) Monocytes # (Manual) Eosinophils # (Manual) Basophils # (Manual) PT INR D-Dimer Heparin Anti-Xa Level POC ABG pH POC ABG pCO2 61.1 H POC ABG pO2 57 L VBG pH Potassium Chloride 95.8 L Carbon Dioxide 33 H BUN Glucose POC Glucose Lactic Acid Calcium Magnesium NT-Pro-B Natriuret Pep Total Protein 5.8 L Albumin 3.0 L TSH 08/14/17 08/14/17 08/14/17 10:36 10:36 10:36 WBC RBC Hgb 10.7 L Hct MCV MCH MCHC RDW [place] % (Auto) Eos % (Auto) [place] # Eos # Seg Neutrophils % Seg Neuts % (Manual) Lymphocytes % (Manual) Monocytes % (Manual) Eosinophils % (Manual) Basophils % (Manual) Seg Neutrophils # Man Lymphocytes # (Manual) Monocytes # (Manual) Eosinophils # (Manual) Basophils # (Manual) PT 15.8 H INR 1.20 H D-Dimer Heparin Anti-Xa Level POC ABG pH POC ABG pCO2 POC ABG pO2 VBG pH Potassium Chloride Carbon Dioxide BUN Glucose POC Glucose Lactic Acid Calcium Magnesium NT-Pro-B Natriuret Pep 6070 H Total Protein Albumin TSH 08/14/17 08/14/17 08/14/17 17:23 20:37 23:18 WBC RBC Hgb Hct MCV MCH MCHC RDW [place] % (Auto) Eos % (Auto) [place] # Eos # Seg Neutrophils % Seg Neuts % (Manual) Lymphocytes % (Manual) Monocytes % (Manual) Eosinophils % (Manual) Basophils % (Manual) Seg Neutrophils # Man Lymphocytes # (Manual) Monocytes # (Manual) Eosinophils # (Manual) Basophils # (Manual) PT INR D-Dimer Heparin Anti-Xa Level < 0.10 L POC ABG pH 7.566 H 7.494 H POC ABG pCO2 51.6 H POC ABG pO2 45 L 52 L VBG pH Potassium Chloride Carbon Dioxide BUN Glucose POC Glucose Lactic Acid Calcium Magnesium NT-Pro-B Natriuret Pep Total Protein Albumin TSH 08/15/17 08/15/17 08/15/17 04:15 04:20 08:26 WBC RBC Hgb Hct MCV MCH MCHC RDW [place] % (Auto) Eos % (Auto) [place] # Eos # Seg Neutrophils % Seg Neuts % (Manual) Lymphocytes % (Manual) Monocytes % (Manual) Eosinophils % (Manual) Basophils % (Manual) Seg Neutrophils # Man Lymphocytes # (Manual) Monocytes # (Manual) Eosinophils # (Manual) Basophils # (Manual) PT 16.3 H INR 1.24 H D-Dimer Heparin Anti-Xa Level 0.12 L POC ABG pH 7.471 H POC ABG pCO2 53.8 H POC ABG pO2 VBG pH Potassium Chloride Carbon Dioxide BUN Glucose POC Glucose Lactic Acid Calcium Magnesium NT-Pro-B Natriuret Pep Total Protein Albumin TSH 08/15/17 08/16/17 08/16/17 22:00 05:25 05:25 WBC RBC Hgb 11.1 L Hct MCV MCH MCHC RDW [place] % (Auto) Eos % (Auto) [place] # Eos # Seg Neutrophils % Seg Neuts % (Manual) Lymphocytes % (Manual) Monocytes % (Manual) Eosinophils % (Manual) Basophils % (Manual) Seg Neutrophils # Man Lymphocytes # (Manual) Monocytes # (Manual) Eosinophils # (Manual) Basophils # (Manual) PT 20.1 H INR 1.61 H D-Dimer Heparin Anti-Xa Level 0.17 L 0.28 L POC ABG pH POC ABG pCO2 POC ABG pO2 VBG pH Potassium Chloride Carbon Dioxide BUN Glucose POC Glucose Lactic Acid Calcium Magnesium NT-Pro-B Natriuret Pep Total Protein Albumin TSH 08/16/17 08/16/17 08/17/17 14:04 14:04 05:58 WBC RBC 5.10 H Hgb 11.2 L Hct MCV 75 L MCH 22 L MCHC 29 L RDW 20.9 H [place] % (Auto) Eos % (Auto) [place] # Eos # Seg Neutrophils % Seg Neuts % (Manual) Lymphocytes % (Manual) Monocytes % (Manual) Eosinophils % (Manual) Basophils % (Manual) Seg Neutrophils # Man Lymphocytes # (Manual) Monocytes # (Manual) Eosinophils # (Manual) Basophils # (Manual) PT 34.7 H INR 3.20 H D-Dimer Heparin Anti-Xa Level POC ABG pH POC ABG pCO2 POC ABG pO2 VBG pH Potassium 3.5 L Chloride 93.1 L Carbon Dioxide 37 H BUN 27 H Glucose 226 H POC Glucose Lactic Acid Calcium Magnesium NT-Pro-B Natriuret Pep Total Protein 5.8 L Albumin 3.0 L [facility] 08/17/17 08/18/17 08/18/17 21:48 04:00 05:23 WBC RBC Hgb 11.3 L Hct MCV MCH MCHC RDW [place] % (Auto) Eos % (Auto) [place] # Eos # Seg Neutrophils % Seg Neuts % (Manual) Lymphocytes % (Manual) Monocytes % (Manual) Eosinophils % (Manual) Basophils % (Manual) Seg Neutrophils # Man Lymphocytes # (Manual) Monocytes # (Manual) Eosinophils # (Manual) Basophils # (Manual) PT 24.2 H INR 2.04 H D-Dimer 1693.79 H Heparin Anti-Xa Level POC ABG pH POC ABG pCO2 POC ABG pO2 VBG pH Potassium Chloride Carbon Dioxide BUN Glucose POC Glucose Lactic Acid Calcium Magnesium NT-Pro-B Natriuret Pep Total Protein Albumin [facility] 08/18/17 08/19/17 08/20/17 05:23 04:30 03:00 WBC RBC Hgb 11.7 L Hct MCV MCH MCHC RDW [place] % (Auto) Eos % (Auto) [place] # Eos # Seg Neutrophils % Seg Neuts % (Manual) Lymphocytes % (Manual) Monocytes % (Manual) Eosinophils % (Manual) Basophils % (Manual) Seg Neutrophils # Man Lymphocytes # (Manual) Monocytes # (Manual) Eosinophils # (Manual) Basophils # (Manual) PT 20.0 H INR 1.60 H D-Dimer Heparin Anti-Xa Level POC ABG pH POC ABG pCO2 POC ABG pO2 VBG pH Potassium Chloride 86.8 L Carbon Dioxide 38 H BUN 33 H Glucose 355 H POC Glucose Lactic Acid Calcium Magnesium NT-Pro-B Natriuret Pep Total Protein Albumin [facility] 08/20/17 08/20/17 08/20/17 03:00 03:00 17:37 WBC RBC Hgb Hct MCV MCH MCHC RDW [place] % (Auto) Eos % (Auto) [place] # Eos # Seg Neutrophils % Seg Neuts % (Manual) Lymphocytes % (Manual) Monocytes % (Manual) Eosinophils % (Manual) Basophils % (Manual) Seg Neutrophils # Man Lymphocytes # (Manual) Monocytes # (Manual) Eosinophils # (Manual) Basophils # (Manual) PT 22.7 H INR 1.87 H D-Dimer Heparin Anti-Xa Level POC ABG pH POC ABG pCO2 POC ABG pO2 VBG pH Potassium Chloride 91.3 L Carbon Dioxide 38 H BUN 34 H Glucose 391 H POC Glucose 312 H Lactic Acid Calcium Magnesium NT-Pro-B Natriuret Pep Total Protein Albumin TSH 08/20/17 08/21/17 08/21/17 22:34 06:40 08:22 WBC RBC Hgb Hct MCV MCH MCHC RDW [place] % (Auto) Eos % (Auto) [place] # Eos # Seg Neutrophils % Seg Neuts % (Manual) Lymphocytes % (Manual) Monocytes % (Manual) Eosinophils % (Manual) Basophils % (Manual) Seg Neutrophils # Man Lymphocytes # (Manual) Monocytes # (Manual) Eosinophils # (Manual) Basophils # (Manual) PT 28.6 H INR 2.49 H D-Dimer Heparin Anti-Xa Level POC ABG pH POC ABG pCO2 POC ABG pO2 VBG pH Potassium Chloride Carbon Dioxide BUN Glucose POC Glucose 166 H 123 H Lactic Acid Calcium Magnesium NT-Pro-B Natriuret Pep Total Protein Albumin TSH 08/21/17 08/21/17 08/21/17 12:29 17:08 21:17 WBC RBC Hgb Hct MCV MCH MCHC RDW [place] % (Auto) Eos % (Auto) [place] # Eos # Seg Neutrophils % Seg Neuts % (Manual) Lymphocytes % (Manual) Monocytes % (Manual) Eosinophils % (Manual) Basophils % (Manual) Seg Neutrophils # Man Lymphocytes # (Manual) Monocytes # (Manual) Eosinophils # (Manual) Basophils # (Manual) PT INR D-Dimer Heparin Anti-Xa Level POC ABG pH POC ABG pCO2 POC ABG pO2 VBG pH Potassium Chloride Carbon Dioxide BUN Glucose POC Glucose 182 H 135 H 145 H Lactic Acid Calcium Magnesium NT-Pro-B Natriuret Pep Total Protein Albumin TSH 08/22/17 08/22/17 08/22/17 04:00 05:00 08:35 WBC RBC Hgb Hct MCV MCH MCHC RDW [place] % (Auto) Eos % (Auto) [place] # Eos # Seg Neutrophils % Seg Neuts % (Manual) Lymphocytes % (Manual) Monocytes % (Manual) Eosinophils % (Manual) Basophils % (Manual) Seg Neutrophils # Man Lymphocytes # (Manual) Monocytes # (Manual) Eosinophils # (Manual) Basophils # (Manual) PT 27.6 H INR 2.38 H D-Dimer Heparin Anti-Xa Level POC ABG pH POC ABG pCO2 POC ABG pO2 VBG pH Potassium Chloride 90.8 L Carbon Dioxide 40 H BUN 30 H Glucose 149 H POC Glucose 132 H Lactic Acid Calcium Magnesium 2.40 H NT-Pro-B Natriuret Pep Total Protein Albumin TSH 08/22/17 08/22/17 08/22/17 13:54 16:38 21:07 WBC RBC Hgb Hct MCV MCH MCHC RDW [place] % (Auto) Eos % (Auto) [place] # Eos # Seg Neutrophils % Seg Neuts % (Manual) Lymphocytes % (Manual) Monocytes % (Manual) Eosinophils % (Manual) Basophils % (Manual) Seg Neutrophils # Man Lymphocytes # (Manual) Monocytes # (Manual) Eosinophils # (Manual) Basophils # (Manual) PT INR D-Dimer Heparin Anti-Xa Level POC ABG pH POC ABG pCO2 POC ABG pO2 VBG pH Potassium Chloride Carbon Dioxide BUN Glucose POC Glucose 189 H 192 H 181 H Lactic Acid Calcium Magnesium NT-Pro-B Natriuret Pep Total Protein Albumin TSH 08/23/17 08/23/17 08/23/17 05:25 08:18 12:27 WBC RBC Hgb Hct MCV MCH MCHC RDW [place] % (Auto) Eos % (Auto) [place] # Eos # Seg Neutrophils % Seg Neuts % (Manual) Lymphocytes % (Manual) Monocytes % (Manual) Eosinophils % (Manual) Basophils % (Manual) Seg Neutrophils # Man Lymphocytes # (Manual) Monocytes # (Manual) Eosinophils # (Manual) Basophils # (Manual) PT 28.2 H INR 2.45 H D-Dimer Heparin Anti-Xa Level POC ABG pH POC ABG pCO2 POC ABG pO2 VBG pH Potassium Chloride Carbon Dioxide BUN Glucose POC Glucose 168 H 109 H Lactic Acid Calcium Magnesium NT-Pro-B Natriuret Pep Total Protein Albumin TSH 08/23/17 08/24/17 08/24/17 16:49 08:00 08:24 WBC RBC Hgb Hct MCV MCH MCHC RDW [place] % (Auto) Eos % (Auto) [place] # Eos # Seg Neutrophils % Seg Neuts % (Manual) Lymphocytes % (Manual) Monocytes % (Manual) Eosinophils % (Manual) Basophils % (Manual) Seg Neutrophils # Man Lymphocytes # (Manual) Monocytes # (Manual) Eosinophils # (Manual) Basophils # (Manual) PT 29.3 H INR 2.57 H D-Dimer Heparin Anti-Xa Level POC ABG pH POC ABG pCO2 POC ABG pO2 VBG pH Potassium Chloride Carbon Dioxide BUN Glucose POC Glucose 117 H 144 H Lactic Acid Calcium Magnesium NT-Pro-B Natriuret Pep Total Protein Albumin TSH 08/24/17 08/24/17 08/24/17 12:57 16:23 21:13 WBC RBC Hgb Hct MCV MCH MCHC RDW [place] % (Auto) Eos % (Auto) [place] # Eos # Seg Neutrophils % Seg Neuts % (Manual) Lymphocytes % (Manual) Monocytes % (Manual) Eosinophils % (Manual) Basophils % (Manual) Seg Neutrophils # Man Lymphocytes # (Manual) Monocytes # (Manual) Eosinophils # (Manual) Basophils # (Manual) PT INR D-Dimer Heparin Anti-Xa Level POC ABG pH POC ABG pCO2 POC ABG pO2 VBG pH Potassium Chloride Carbon Dioxide BUN Glucose POC Glucose 113 H 145 H 209 H Lactic Acid Calcium Magnesium NT-Pro-B Natriuret Pep Total Protein Albumin TSH 08/25/17 08/25/17 08/25/17 05:00 08:07 12:00 WBC RBC Hgb Hct MCV MCH MCHC RDW [place] % (Auto) Eos % (Auto) [place] # Eos # Seg Neutrophils % Seg Neuts % (Manual) Lymphocytes % (Manual) Monocytes % (Manual) Eosinophils % (Manual) Basophils % (Manual) Seg Neutrophils # Man Lymphocytes # (Manual) Monocytes # (Manual) Eosinophils # (Manual) Basophils # (Manual) PT 29.1 H INR 2.55 H D-Dimer Heparin Anti-Xa Level POC ABG pH POC ABG pCO2 POC ABG pO2 VBG pH Potassium Chloride Carbon Dioxide BUN Glucose POC Glucose 129 H 125 H Lactic Acid Calcium Magnesium NT-Pro-B Natriuret Pep Total Protein Albumin TSH 08/25/17 08/25/17 08/26/17 17:04 22:11 06:15 WBC RBC Hgb Hct MCV MCH MCHC RDW [place] % (Auto) Eos % (Auto) [place] # Eos # Seg Neutrophils % Seg Neuts % (Manual) Lymphocytes % (Manual) Monocytes % (Manual) Eosinophils % (Manual) Basophils % (Manual) Seg Neutrophils # Man Lymphocytes # (Manual) Monocytes # (Manual) Eosinophils # (Manual) Basophils # (Manual) PT 29.1 H INR 2.55 H D-Dimer Heparin Anti-Xa Level POC ABG pH POC ABG pCO2 POC ABG pO2 VBG pH Potassium Chloride Carbon Dioxide BUN Glucose POC Glucose 124 H 130 H Lactic Acid Calcium Magnesium NT-Pro-B Natriuret Pep Total Protein Albumin [facility] 08/26/17 08/26/17 08/26/17 09:04 12:13 21:32 WBC RBC Hgb Hct MCV MCH MCHC RDW [place] % (Auto) Eos % (Auto) [place] # Eos # Seg Neutrophils % Seg Neuts % (Manual) Lymphocytes % (Manual) Monocytes % (Manual) Eosinophils % (Manual) Basophils % (Manual) Seg Neutrophils # Man Lymphocytes # (Manual) Monocytes # (Manual) Eosinophils # (Manual) Basophils # (Manual) PT INR D-Dimer Heparin Anti-Xa Level POC ABG pH POC ABG pCO2 POC ABG pO2 VBG pH Potassium Chloride Carbon Dioxide BUN Glucose POC Glucose 137 H 201 H 185 H Lactic Acid Calcium Magnesium NT-Pro-B Natriuret Pep Total Protein Albumin [facility] 08/27/17 08/27/17 08/27/17 04:00 04:00 05:00 WBC RBC 5.15 H Hgb Hct MCV 74 L MCH 23 L MCHC 31 L RDW 20.4 H [place] % (Auto) 11.0 H Eos % (Auto) 5.2 H [place] # 1.2 H Eos # 0.6 H Seg Neutrophils % Seg Neuts % (Manual) Lymphocytes % (Manual) Monocytes % (Manual) Eosinophils % (Manual) Basophils % (Manual) Seg Neutrophils # Man Lymphocytes # (Manual) Monocytes # (Manual) Eosinophils # (Manual) Basophils # (Manual) PT 29.0 H INR 2.53 H D-Dimer Heparin Anti-Xa Level POC ABG pH POC ABG pCO2 POC ABG pO2 VBG pH Potassium Chloride 90.7 L Carbon Dioxide 35 H BUN Glucose 147 H POC Glucose Lactic Acid Calcium Magnesium NT-Pro-B Natriuret Pep Total Protein Albumin [facility] 08/27/17 08/27/17 08/27/17 11:44 16:32 21:13 WBC RBC Hgb Hct MCV MCH MCHC RDW [place] % (Auto) Eos % (Auto) [place] # Eos # Seg Neutrophils % Seg Neuts % (Manual) Lymphocytes % (Manual) Monocytes % (Manual) Eosinophils % (Manual) Basophils % (Manual) Seg Neutrophils # Man Lymphocytes # (Manual) Monocytes # (Manual) Eosinophils # (Manual) Basophils # (Manual) PT INR D-Dimer Heparin Anti-Xa Level POC ABG pH POC ABG pCO2 POC ABG pO2 VBG pH Potassium Chloride Carbon Dioxide BUN Glucose POC Glucose 131 H 131 H 197 H Lactic Acid Calcium Magnesium NT-Pro-B Natriuret Pep Total Protein Albumin TSH 08/28/17 08/28/17 06:38 08:11 WBC RBC Hgb Hct MCV MCH MCHC RDW [place] % (Auto) Eos % (Auto) [place] # Eos # Seg Neutrophils % Seg Neuts % (Manual) Lymphocytes % (Manual) Monocytes % (Manual) Eosinophils % (Manual) Basophils % (Manual) Seg Neutrophils # Man Lymphocytes # (Manual) Monocytes # (Manual) Eosinophils # (Manual) Basophils # (Manual) PT 26.5 H INR 2.27 H D-Dimer Heparin Anti-Xa Level POC ABG pH POC ABG pCO2 POC ABG pO2 VBG pH Potassium Chloride Carbon Dioxide BUN Glucose POC Glucose 142 H Lactic Acid Calcium Magnesium NT-Pro-B Natriuret Pep Total Protein Albumin TSH Chest x-ray: report reviewed, image reviewed
[2017-08-28] MEDS: COUMADIN PO SCH (17:35)
--- NOTE | 2017-08-28 18:49 | Progress Note ---
Assessment and Plan Assessment and plan: - obstructive sleep apnea/obesity hypoventilation syndrome/morbid obesity Continue, BiPAP at night, out patient sleep study --Main goal of the treatment is weight loss, Patient strongly encouraged --Acute on chronic hypoxic, hypercapnic respiratory failure on high flow oxygen, continue current management --Continue wound care and lymphedema care inpatient and outpatient post discharge --Morbid obesity; BMI of 84; counseling done, --Acute systolic congestive heart failure ; EF 40-45% with severe pulmonary hypertension Continue diuretics Lasix 40 every 8 hours, input output monitoring, fluid restriction --Severe pulmonary hypertension on echocardiogram; diuretics, fluid restriction , --Left lower lobe pneumonia/atelectasis/community-acquired; resolved, completed treatment --Chronic massive lymphedema; supportive care, wound care and lymphedema care as needed --Empiric anticoagulation on Coumadin, therapeutic INR, target INR 2-3 --Discharge planning. Case management, possible home with home health when patient is stable --Physical therapy occupational therapy as tolerated Plan of care reviewed with the patient family member and his nurse as well as the case management History Interval history: Patient Seen and examined medical records reviewed Tolerating physical therapy No new complaints, vital signs reviewed Alert awake oriented 3 not in acute distress Hospitalist Physical - Constitutional Vitals: Temp Pulse Resp BP Pulse Ox 97.9 F 86 20 151/74 96 08/28/17 18:32 08/28/17 18:32 08/28/17 18:32 08/28/17 18:32 08/28/17 18:32 General appearance: Present: no acute distress, well-nourished, obese (morbidly obese) - EENT Eyes: Present: PERRL, EOM intact - Neck Neck: Present: supple, normal ROM - Respiratory Respiratory effort: normal Respiratory: bilateral: diminished, negative: rales, rhonchi, wheezing - Cardiovascular Rhythm: regular Heart Sounds: Present: S1 & S2 - Extremities Extremities: abnormal (Lymphedema obese) Extremity abnormal: edema - Abdominal General gastrointestinal: soft, non-tender, non-distended, normal bowel sounds - Integumentary Integumentary: Present: clear, warm - Psychiatric Psychiatric: appropriate mood/affect, cooperative - Neurologic Neurologic: CNII-XII intact, moves all extremities Results - Labs CBC & Chem 7: 08/27/17 04:00 08/27/17 04:00 Labs: Laboratory Last Values WBC 10.7 K/mm3 (4.5-11.0) 08/27/17 04:00 RBC 5.15 M/mm3 (3.65-5.03) H 08/27/17 04:00 Hgb 12.0 gm/dl (11.8-15.2) 08/27/17 04:00 Hct 38.2 % (35.5-45.6) 08/27/17 04:00 MCV 74 fl (84-94) L 08/27/17 04:00 MCH 23 pg (28-32) L 08/27/17 04:00 MCHC 31 % (32-34) L 08/27/17 04:00 RDW 20.4 % (13.2-15.2) H 08/27/17 04:00 Plt Count 234 K/mm3 (140-440) 08/27/17 04:00 Lymph % (Auto) 25.2 % (13.4-35.0) 08/27/17 04:00 Hayes % (Auto) 11.0 % (0.0-7.3) H 08/27/17 04:00 Eos % (Auto) 5.2 % (0.0-4.3) H 08/27/17 04:00 Baso % (Auto) 1.2 % (0.0-1.8) 08/27/17 04:00 Lymph # 2.7 K/mm3 (1.2-5.4) 08/27/17 04:00 Hayes # 1.2 K/mm3 (0.0-0.8) H 08/27/17 04:00 Eos # 0.6 K/mm3 (0.0-0.4) H 08/27/17 04:00 Baso # 0.1 K/mm3 (0.0-0.1) 08/27/17 04:00 Add Manual Diff Complete 08/09/17 10:57 Total Counted 100 08/09/17 10:57 Seg Neutrophils % 57.4 % (40.0-70.0) 08/27/17 04:00 Seg Neuts % (Manual) 64.0 % (40.0-70.0) 08/09/17 10:57 Band Neutrophils % 4.0 % 08/09/17 10:57 Lymphocytes % (Manual) 15.0 % (13.4-35.0) 08/09/17 10:57 Reactive Lymphs % (Man) 3.0 % 08/09/17 10:57 Monocytes % (Manual) 9.0 % (0.0-7.3) H 08/09/17 10:57 Eosinophils % (Manual) 5.0 % (0.0-4.3) H 08/09/17 10:57 Basophils % (Manual) 0 % (0.0-1.8) 08/09/17 10:57 Metamyelocytes % 0 % 08/09/17 10:57 Myelocytes % 0 % 08/09/17 10:57 Promyelocytes % 0 % 08/09/17 10:57 Blast Cells % 0 % 08/09/17 10:57 Nucleated RBC % Not Reportable 08/09/17 10:57 Seg Neutrophils # 6.2 K/mm3 (1.8-7.7) 08/27/17 04:00 Seg Neutrophils # Man 9.3 K/mm3 (1.8-7.7) H 08/09/17 10:57 Band Neutrophils # 0.6 K/mm3 08/09/17 10:57 Lymphocytes # (Manual) 2.2 K/mm3 (1.2-5.4) 08/09/17 10:57 Abs React Lymphs (Man) 0.4 K/mm3 08/09/17 10:57 Monocytes # (Manual) 1.3 K/mm3 (0.0-0.8) H 08/09/17 10:57 Eosinophils # (Manual) 0.7 K/mm3 (0.0-0.4) H 08/09/17 10:57 Basophils # (Manual) 0.0 K/mm3 (0.0-0.1) 08/09/17 10:57 Metamyelocytes # 0.0 K/mm3 08/09/17 10:57 Myelocytes # 0.0 K/mm3 08/09/17 10:57 Promyelocytes # 0.0 K/mm3 08/09/17 10:57 Blast Cells # 0.0 K/mm3 08/09/17 10:57 WBC Morphology Not Reportable 08/09/17 10:57 Hypersegmented Neuts Not Reportable 08/09/17 10:57 Hyposegmented Neuts Not Reportable 08/09/17 10:57 Hypogranular Neuts Not Reportable 08/09/17 10:57 Smudge Cells Not Reportable 08/09/17 10:57 Toxic Granulation Not Reportable 08/09/17 10:57 Toxic Vacuolation Not Reportable 08/09/17 10:57 Dohle Bodies Not Reportable 08/09/17 10:57 Pelger-Huet Anomaly Not Reportable 08/09/17 10:57 Noa Rods Not Reportable 08/09/17 10:57 Platelet Estimate Consistent w auto 08/09/17 10:57 Clumped Platelets Not Reportable 08/09/17 10:57 Plt Clumps, EDTA Not Reportable 08/09/17 10:57 Large Platelets Not Reportable 08/09/17 10:57 Giant Platelets Few 08/09/17 10:57 Platelet Satelliting Not Reportable 08/09/17 10:57 Plt Morphology Comment Not Reportable 08/09/17 10:57 RBC Morphology Not Reportable 08/09/17 10:57 Dimorphic RBCs Not Reportable 08/09/17 10:57 Polychromasia Not Reportable 08/09/17 10:57 Hypochromasia 1+ 08/09/17 10:57 Poikilocytosis 1+ 08/09/17 10:57 Anisocytosis 1+ 08/09/17 10:57 Microcytosis 1+ 08/09/17 10:57 Macrocytosis Not Reportable 08/09/17 10:57 Spherocytes Not Reportable 08/09/17 10:57 Pappenheimer Bodies Not Reportable 08/09/17 10:57 Sickle Cells Not Reportable 08/09/17 10:57 Target Cells Not Reportable 08/09/17 10:57 Tear Drop Cells Not Reportable 08/09/17 10:57 Ovalocytes Few 08/09/17 10:57 Stomatocytes 1+ 08/09/17 10:57 Helmet Cells Not Reportable 08/09/17 10:57 Harley-Groveton Bodies Not Reportable 08/09/17 10:57 [place] Rings Not Reportable 08/09/17 10:57 Shelly Cells Not Reportable 08/09/17 10:57 Bite Cells Not Reportable 08/09/17 10:57 Crenated Cell Not Reportable 08/09/17 10:57 Elliptocytes Not Reportable 08/09/17 10:57 Acanthocytes (Spur) Not Reportable 08/09/17 10:57 Rouleaux Not Reportable 08/09/17 10:57 Hemoglobin C Crystals Not Reportable 08/09/17 10:57 Schistocytes Not Reportable 08/09/17 10:57 Malaria parasites Not Reportable 08/09/17 10:57 Cuco Bodies Not Reportable 08/09/17 10:57 Hem Pathologist Commnt No 08/09/17 10:57 PT 26.5 Sec. (12.2-14.9) H 08/28/17 06:38 INR 2.27 (0.87-1.13) H 08/28/17 06:38 APTT 29.0 Sec. (24.2-36.6) 08/14/17 10:36 D-Dimer 1693.79 ng/mlDDU (0-234) H 08/17/17 21:48 Heparin Anti-Xa Level 0.43 U.I./ml (0.3-0.7) 08/17/17 05:58 POC ABG pH 7.471 (7.35-7.45) H 08/15/17 04:20 POC ABG pCO2 53.8 (35-45) H 08/15/17 04:20 POC ABG pO2 81 (80-105) 08/15/17 04:20 POC ABG HCO3 39.3 08/15/17 04:20 POC ABG Total CO2 41 08/15/17 04:20 POC ABG O2 Sat 96 08/15/17 04:20 POC ABG Base Excess 16 08/15/17 04:20 VBG pH 7.463 (7.320-7.420) H 08/07/17 16:58 FiO2 100 % 08/15/17 04:20 Sodium 141 mmol/L (137-145) 08/27/17 04:00 Potassium 3.6 mmol/L (3.6-5.0) 08/27/17 04:00 Chloride 90.7 mmol/L (98-107) L 08/27/17 04:00 Carbon Dioxide 35 mmol/L (22-30) H 08/27/17 04:00 Anion Gap 19 mmol/L 08/27/17 04:00 BUN 13 mg/dL (9-20) 08/27/17 04:00 Creatinine 0.8 mg/dL (0.8-1.5) 08/27/17 04:00 Estimated GFR > 60 ml/min 08/27/17 04:00 BUN/Creatinine Ratio 16 % 08/27/17 04:00 Glucose 147 mg/dL (75-100) H 08/27/17 04:00 POC Glucose 142 (70-105) H 08/28/17 08:11 Lactic Acid 0.90 mmol/L (0.7-2.0) 08/08/17 06:01 Calcium 9.1 mg/dL (8.4-10.2) 08/27/17 04:00 Magnesium 2.00 mg/dL (1.7-2.3) 08/27/17 04:00 Total Bilirubin 0.70 mg/dL (0.1-1.2) 08/16/17 14:04 Direct Bilirubin 0.2 mg/dL (0-0.2) 08/11/17 07:12 Indirect Bilirubin 0.3 mg/dL 08/11/17 07:12 AST 11 units/L (5-40) 08/16/17 14:04 ALT 10 units/L (7-56) 08/16/17 14:04 Alkaline Phosphatase 68 units/L (35-129) 08/16/17 14:04 NT-Pro-B Natriuret Pep 6070 pg/mL (0-450) H 08/14/17 10:36 Total Protein 5.8 g/dL (6.3-8.2) L 08/16/17 14:04 Albumin 3.0 g/dL (3.9-5) L 08/16/17 14:04 Albumin/Globulin Ratio 1.1 % 08/16/17 14:04 TSH 4.780 mlU/mL (0.270-4.200) H 08/11/17 07:12 Free T4 0.86 ng/dL (0.76-1.46) 08/11/17 07:12
[2017-08-29] MEDS: LASIX IV SCH ×3 (01:50→18:21)
[2017-08-29 07:11] LABS: INR 2.52 (0.87-1.13)
[2017-08-29] MEDS: NOVOLOG SUB-Q SCH ×3 (08:00→18:21)
[2017-08-29] MEDS: K-DUR PO SCH (10:13)
--- NOTE | 2017-08-29 15:41 | Progress Note ---
Assessment and Plan Imp: 1. RUSSEL 2. OHS 3. Morbid obesity 4. A/C respiratory failure, hypoxia and hypercapnea 5. NICMP 6. A/C systolic CHF 7. Pulm HTN 2/2 above Rec: 1. Diuresis 2. BIPAP QHS and prn 3. Agree w/ home NIV and O2 4. Weight loss 5. Wean O2 to keep sats 88-94% -> have personally asked RT to be more aggressive weaning and placed numerous orders to that effect 6. Incentive anthony 10x per hour 7. Will follow; complex patient/decision-making Plan of care reviewed with patient, he understands/agrees Subjective Date of service: 08/29/17 Principal diagnosis: heart failure, hypercapnic respiratory failure, severe morbid obesity Interval history: No events. Remains on HFNC at 15LPM and 35%. SOB better. No new complaints. Active Medications Acetaminophen (Tylenol) 650 mg PO Q4H PRN PRN Reason: /Fever >100.5/ARENAS Last Admin: 08/10/17 09:28 Dose: 650 mg Albuterol (Proventil) 2.5 mg IH Q4HRT PRN PRN Reason: Shortness Of Breath Last Admin: 08/19/17 20:22 Dose: 2.5 mg Bisacodyl (Dulcolax) 10 mg OR QDAY PRN PRN Reason: Constipation unrelieved by MOM Furosemide (Lasix) 40 mg IV Q8H [facility] Last Admin: 08/29/17 10:13 Dose: 40 mg Guaifenesin (Guaifenesin Dm Syrup) 10 ml PO Q6H PRN PRN Reason: Cough Last Admin: 08/23/17 22:33 Dose: 10 ml Ibuprofen (Motrin) 600 mg PO Q8H PRN PRN Reason: Pain, Mild (1-3) Last Admin: 08/17/17 17:30 Dose: 600 mg Insulin Aspart (Novolog) 0 units SUB-Q ACHS [facility] PRN Reason: Protocol Last Admin: 08/29/17 08:00 Dose: 2 units Magnesium Hydroxide (Milk Of Magnesia) 30 ml PO Q4H PRN PRN Reason: Constipation Ondansetron HCl (Zofran) 4 mg IV Q8H PRN PRN Reason: N/V unrelieved by Reglan Last Admin: 08/07/17 23:02 Dose: 4 mg Potassium Chloride (K-Dur) 20 meq PO QDAY [facility] Last Admin: 08/29/17 10:13 Dose: 20 meq Warfarin Sodium (Coumadin Pharmacy To Dose) 1 each PO PKCONSULT [facility] Warfarin Sodium (Coumadin) 7.5 mg PO DAILY@1700 [facility] Last Admin: 08/28/17 17:35 Dose: 7.5 mg Objective Vital Signs - 12hr 08/29/17 08/29/17 08/29/17 06:21 06:25 08:00 Temperature 99.0 F 99.0 F Pulse Rate 90 87 Respiratory 20 20 Rate Blood Pressure 138/78 Blood Pressure 138/78 [Left] O2 Sat by Pulse 95 95 96 Oximetry 08/29/17 08/29/17 08/29/17 08:11 09:07 10:00 Temperature 98.2 F 98.2 F Pulse Rate 94 H 94 H 94 H Respiratory 20 20 20 Rate Blood Pressure 135/76 Blood Pressure 135/76 [Left] O2 Sat by Pulse 98 98 95 Oximetry 08/29/17 11:25 Temperature 98.2 F Pulse Rate 84 Respiratory 20 Rate Blood Pressure 116/72 Blood Pressure [Left] O2 Sat by Pulse 96 Oximetry Constitutional: no acute distress, alert Eyes: non-icteric ENT: oropharynx moist Neck: other (extremely large in circumference) Effort: normal Ascultation: Bilateral: clear Percussion: Bilateral: not dull Cardiovascular: regular rate and rhythm (no mrg) Gastrointestinal: normoactive bowel sounds, soft, non-tender, non-distended, other (obese) Integumentary: other (chronic venous stasis changes LEs) Extremities: no cyanosis, edema (lymphedema), other (bilateral lymphedema with chronic changes) Neurologic: normal mental status, non-focal exam, pupils equal and round, CN II- XII normal Psychiatric: mood appropriate, affect normal CBC and BMP: 08/27/17 04:00 08/27/17 04:00 ABG, PT/INR, D-dimer: ABG POC ABG pH 7.471 (7.35-7.45) H 08/15/17 04:20 POC ABG pCO2 53.8 (35-45) H 08/15/17 04:20 POC ABG pO2 81 (80-105) 08/15/17 04:20 POC ABG HCO3 39.3 08/15/17 04:20 POC ABG Total CO2 41 08/15/17 04:20 POC ABG O2 Sat 96 08/15/17 04:20 PT/INR, D-dimer PT 28.9 Sec. (12.2-14.9) H 08/29/17 05:47 INR 2.52 (0.87-1.13) H 08/29/17 05:47 D-Dimer 1693.79 ng/mlDDU (0-234) H 08/17/17 21:48 Abnormal lab findings: Abnormal Labs 08/07/17 08/07/17 08/07/17 16:58 16:58 16:58 WBC 16.1 H RBC 5.44 H Hgb Hct MCV 74 L MCH 22 L MCHC 29 L RDW 21.7 H [place] % (Auto) Eos % (Auto) [place] # Eos # Seg Neutrophils % Seg Neuts % (Manual) 87.0 H Lymphocytes % (Manual) 7.0 L Monocytes % (Manual) Eosinophils % (Manual) Basophils % (Manual) 2.0 H Seg Neutrophils # Man 14.0 H Lymphocytes # (Manual) 1.1 L Monocytes # (Manual) Eosinophils # (Manual) Basophils # (Manual) 0.3 H PT 16.2 H INR 1.23 H D-Dimer Heparin Anti-Xa Level POC ABG pH POC ABG pCO2 POC ABG pO2 VBG pH Potassium Chloride 96.2 L Carbon Dioxide 31 H BUN Glucose POC Glucose Lactic Acid Calcium Magnesium NT-Pro-B Natriuret Pep Total Protein 5.8 L Albumin 3.0 L TSH 08/07/17 08/07/17 08/07/17 16:58 16:58 16:58 WBC RBC Hgb Hct MCV MCH MCHC RDW [place] % (Auto) Eos % (Auto) [place] # Eos # Seg Neutrophils % Seg Neuts % (Manual) Lymphocytes % (Manual) Monocytes % (Manual) Eosinophils % (Manual) Basophils % (Manual) Seg Neutrophils # Man Lymphocytes # (Manual) Monocytes # (Manual) Eosinophils # (Manual) Basophils # (Manual) PT INR D-Dimer Heparin Anti-Xa Level POC ABG pH POC ABG pCO2 POC ABG pO2 VBG pH 7.463 H Potassium Chloride Carbon Dioxide BUN Glucose POC Glucose Lactic Acid 2.10 H* Calcium Magnesium NT-Pro-B Natriuret Pep 2205 H Total Protein Albumin TSH 08/09/17 08/09/17 08/10/17 10:57 13:37 08:04 WBC 14.5 H RBC Hgb 10.8 L 10.8 L Hct 35.1 L MCV 74 L 76 L MCH 23 L 23 L MCHC 31 L 30 L RDW 21.2 H 21.0 H [place] % (Auto) Eos % (Auto) [place] # Eos # Seg Neutrophils % 75.4 H Seg Neuts % (Manual) Lymphocytes % (Manual) Monocytes % (Manual) 9.0 H Eosinophils % (Manual) 5.0 H Basophils % (Manual) Seg Neutrophils # Man 9.3 H Lymphocytes # (Manual) Monocytes # (Manual) 1.3 H Eosinophils # (Manual) 0.7 H Basophils # (Manual) PT INR D-Dimer Heparin Anti-Xa Level POC ABG pH POC ABG pCO2 POC ABG pO2 VBG pH Potassium Chloride 96.9 L Carbon Dioxide 32 H BUN Glucose POC Glucose Lactic Acid Calcium 8.3 L Magnesium NT-Pro-B Natriuret Pep Total Protein Albumin TSH 08/10/17 08/10/17 08/10/17 08:04 08:04 14:50 WBC RBC Hgb Hct MCV MCH MCHC RDW [place] % (Auto) Eos % (Auto) [place] # Eos # Seg Neutrophils % Seg Neuts % (Manual) Lymphocytes % (Manual) Monocytes % (Manual) Eosinophils % (Manual) Basophils % (Manual) Seg Neutrophils # Man Lymphocytes # (Manual) Monocytes # (Manual) Eosinophils # (Manual) Basophils # (Manual) PT INR D-Dimer Heparin Anti-Xa Level POC ABG pH POC ABG pCO2 65.9 H POC ABG pO2 VBG pH Potassium Chloride Carbon Dioxide 32 H BUN Glucose 115 H POC Glucose Lactic Acid Calcium Magnesium NT-Pro-B Natriuret Pep Total Protein Albumin TSH 4.900 H 08/11/17 08/11/17 08/11/17 07:12 07:12 07:12 WBC RBC Hgb 10.3 L Hct MCV 76 L MCH 22 L MCHC 29 L RDW 21.4 H [place] % (Auto) 8.8 H Eos % (Auto) [place] # Eos # Seg Neutrophils % Seg Neuts % (Manual) Lymphocytes % (Manual) Monocytes % (Manual) Eosinophils % (Manual) Basophils % (Manual) Seg Neutrophils # Man Lymphocytes # (Manual) Monocytes # (Manual) Eosinophils # (Manual) Basophils # (Manual) PT INR D-Dimer Heparin Anti-Xa Level POC ABG pH POC ABG pCO2 POC ABG pO2 VBG pH Potassium Chloride Carbon Dioxide 35 H BUN Glucose 105 H POC Glucose Lactic Acid Calcium Magnesium NT-Pro-B Natriuret Pep Total Protein 5.8 L Albumin 3.1 L TSH 4.780 H 08/12/17 08/12/17 08/13/17 04:31 04:31 11:34 WBC RBC Hgb 10.7 L Hct 35.3 L MCV 76 L MCH 23 L MCHC 30 L RDW 21.3 H [place] % (Auto) Eos % (Auto) [place] # Eos # Seg Neutrophils % Seg Neuts % (Manual) Lymphocytes % (Manual) Monocytes % (Manual) Eosinophils % (Manual) Basophils % (Manual) Seg Neutrophils # Man Lymphocytes # (Manual) Monocytes # (Manual) Eosinophils # (Manual) Basophils # (Manual) PT INR D-Dimer Heparin Anti-Xa Level POC ABG pH POC ABG pCO2 61.1 H POC ABG pO2 57 L VBG pH Potassium Chloride 95.8 L Carbon Dioxide 33 H BUN Glucose POC Glucose Lactic Acid Calcium Magnesium NT-Pro-B Natriuret Pep Total Protein 5.8 L Albumin 3.0 L TSH 08/14/17 08/14/17 08/14/17 10:36 10:36 10:36 WBC RBC Hgb 10.7 L Hct MCV MCH MCHC RDW [place] % (Auto) Eos % (Auto) [place] # Eos # Seg Neutrophils % Seg Neuts % (Manual) Lymphocytes % (Manual) Monocytes % (Manual) Eosinophils % (Manual) Basophils % (Manual) Seg Neutrophils # Man Lymphocytes # (Manual) Monocytes # (Manual) Eosinophils # (Manual) Basophils # (Manual) PT 15.8 H INR 1.20 H D-Dimer Heparin Anti-Xa Level POC ABG pH POC ABG pCO2 POC ABG pO2 VBG pH Potassium Chloride Carbon Dioxide BUN Glucose POC Glucose Lactic Acid Calcium Magnesium NT-Pro-B Natriuret Pep 6070 H Total Protein Albumin TSH 08/14/17 08/14/17 08/14/17 17:23 20:37 23:18 WBC RBC Hgb Hct MCV MCH MCHC RDW [place] % (Auto) Eos % (Auto) [place] # Eos # Seg Neutrophils % Seg Neuts % (Manual) Lymphocytes % (Manual) Monocytes % (Manual) Eosinophils % (Manual) Basophils % (Manual) Seg Neutrophils # Man Lymphocytes # (Manual) Monocytes # (Manual) Eosinophils # (Manual) Basophils # (Manual) PT INR D-Dimer Heparin Anti-Xa Level < 0.10 L POC ABG pH 7.566 H 7.494 H POC ABG pCO2 51.6 H POC ABG pO2 45 L 52 L VBG pH Potassium Chloride Carbon Dioxide BUN Glucose POC Glucose Lactic Acid Calcium Magnesium NT-Pro-B Natriuret Pep Total Protein Albumin [facility] 08/15/17 08/15/17 08/15/17 04:15 04:20 08:26 WBC RBC Hgb Hct MCV MCH MCHC RDW [place] % (Auto) Eos % (Auto) [place] # Eos # Seg Neutrophils % Seg Neuts % (Manual) Lymphocytes % (Manual) Monocytes % (Manual) Eosinophils % (Manual) Basophils % (Manual) Seg Neutrophils # Man Lymphocytes # (Manual) Monocytes # (Manual) Eosinophils # (Manual) Basophils # (Manual) PT 16.3 H INR 1.24 H D-Dimer Heparin Anti-Xa Level 0.12 L POC ABG pH 7.471 H POC ABG pCO2 53.8 H POC ABG pO2 VBG pH Potassium Chloride Carbon Dioxide BUN Glucose POC Glucose Lactic Acid Calcium Magnesium NT-Pro-B Natriuret Pep Total Protein Albumin [facility] 08/15/17 08/16/17 08/16/17 22:00 05:25 05:25 WBC RBC Hgb 11.1 L Hct MCV MCH MCHC RDW [place] % (Auto) Eos % (Auto) [place] # Eos # Seg Neutrophils % Seg Neuts % (Manual) Lymphocytes % (Manual) Monocytes % (Manual) Eosinophils % (Manual) Basophils % (Manual) Seg Neutrophils # Man Lymphocytes # (Manual) Monocytes # (Manual) Eosinophils # (Manual) Basophils # (Manual) PT 20.1 H INR 1.61 H D-Dimer Heparin Anti-Xa Level 0.17 L 0.28 L POC ABG pH POC ABG pCO2 POC ABG pO2 VBG pH Potassium Chloride Carbon Dioxide BUN Glucose POC Glucose Lactic Acid Calcium Magnesium NT-Pro-B Natriuret Pep Total Protein Albumin [facility] 08/16/17 08/16/17 08/17/17 14:04 14:04 05:58 WBC RBC 5.10 H Hgb 11.2 L Hct MCV 75 L MCH 22 L MCHC 29 L RDW 20.9 H [place] % (Auto) Eos % (Auto) [place] # Eos # Seg Neutrophils % Seg Neuts % (Manual) Lymphocytes % (Manual) Monocytes % (Manual) Eosinophils % (Manual) Basophils % (Manual) Seg Neutrophils # Man Lymphocytes # (Manual) Monocytes # (Manual) Eosinophils # (Manual) Basophils # (Manual) PT 34.7 H INR 3.20 H D-Dimer Heparin Anti-Xa Level POC ABG pH POC ABG pCO2 POC ABG pO2 VBG pH Potassium 3.5 L Chloride 93.1 L Carbon Dioxide 37 H BUN 27 H Glucose 226 H POC Glucose Lactic Acid Calcium Magnesium NT-Pro-B Natriuret Pep Total Protein 5.8 L Albumin 3.0 L TSH 08/17/17 08/18/17 08/18/17 21:48 04:00 05:23 WBC RBC Hgb 11.3 L Hct MCV MCH MCHC RDW [place] % (Auto) Eos % (Auto) [place] # Eos # Seg Neutrophils % Seg Neuts % (Manual) Lymphocytes % (Manual) Monocytes % (Manual) Eosinophils % (Manual) Basophils % (Manual) Seg Neutrophils # Man Lymphocytes # (Manual) Monocytes # (Manual) Eosinophils # (Manual) Basophils # (Manual) PT 24.2 H INR 2.04 H D-Dimer 1693.79 H Heparin Anti-Xa Level POC ABG pH POC ABG pCO2 POC ABG pO2 VBG pH Potassium Chloride Carbon Dioxide BUN Glucose POC Glucose Lactic Acid Calcium Magnesium NT-Pro-B Natriuret Pep Total Protein Albumin TSH 08/18/17 08/19/17 08/20/17 05:23 04:30 03:00 WBC RBC Hgb 11.7 L Hct MCV MCH MCHC RDW [place] % (Auto) Eos % (Auto) [place] # Eos # Seg Neutrophils % Seg Neuts % (Manual) Lymphocytes % (Manual) Monocytes % (Manual) Eosinophils % (Manual) Basophils % (Manual) Seg Neutrophils # Man Lymphocytes # (Manual) Monocytes # (Manual) Eosinophils # (Manual) Basophils # (Manual) PT 20.0 H INR 1.60 H D-Dimer Heparin Anti-Xa Level POC ABG pH POC ABG pCO2 POC ABG pO2 VBG pH Potassium Chloride 86.8 L Carbon Dioxide 38 H BUN 33 H Glucose 355 H POC Glucose Lactic Acid Calcium Magnesium NT-Pro-B Natriuret Pep Total Protein Albumin TSH 08/20/17 08/20/17 08/20/17 03:00 03:00 17:37 WBC RBC Hgb Hct MCV MCH MCHC RDW [place] % (Auto) Eos % (Auto) [place] # Eos # Seg Neutrophils % Seg Neuts % (Manual) Lymphocytes % (Manual) Monocytes % (Manual) Eosinophils % (Manual) Basophils % (Manual) Seg Neutrophils # Man Lymphocytes # (Manual) Monocytes # (Manual) Eosinophils # (Manual) Basophils # (Manual) PT 22.7 H INR 1.87 H D-Dimer Heparin Anti-Xa Level POC ABG pH POC ABG pCO2 POC ABG pO2 VBG pH Potassium Chloride 91.3 L Carbon Dioxide 38 H BUN 34 H Glucose 391 H POC Glucose 312 H Lactic Acid Calcium Magnesium NT-Pro-B Natriuret Pep Total Protein Albumin [facility] 08/20/17 08/21/17 08/21/17 22:34 06:40 08:22 WBC RBC Hgb Hct MCV MCH MCHC RDW [place] % (Auto) Eos % (Auto) [place] # Eos # Seg Neutrophils % Seg Neuts % (Manual) Lymphocytes % (Manual) Monocytes % (Manual) Eosinophils % (Manual) Basophils % (Manual) Seg Neutrophils # Man Lymphocytes # (Manual) Monocytes # (Manual) Eosinophils # (Manual) Basophils # (Manual) PT 28.6 H INR 2.49 H D-Dimer Heparin Anti-Xa Level POC ABG pH POC ABG pCO2 POC ABG pO2 VBG pH Potassium Chloride Carbon Dioxide BUN Glucose POC Glucose 166 H 123 H Lactic Acid Calcium Magnesium NT-Pro-B Natriuret Pep Total Protein Albumin [facility] 08/21/17 08/21/17 08/21/17 12:29 17:08 21:17 WBC RBC Hgb Hct MCV MCH MCHC RDW [place] % (Auto) Eos % (Auto) [place] # Eos # Seg Neutrophils % Seg Neuts % (Manual) Lymphocytes % (Manual) Monocytes % (Manual) Eosinophils % (Manual) Basophils % (Manual) Seg Neutrophils # Man Lymphocytes # (Manual) Monocytes # (Manual) Eosinophils # (Manual) Basophils # (Manual) PT INR D-Dimer Heparin Anti-Xa Level POC ABG pH POC ABG pCO2 POC ABG pO2 VBG pH Potassium Chloride Carbon Dioxide BUN Glucose POC Glucose 182 H 135 H 145 H Lactic Acid Calcium Magnesium NT-Pro-B Natriuret Pep Total Protein Albumin TSH 08/22/17 08/22/17 08/22/17 04:00 05:00 08:35 WBC RBC Hgb Hct MCV MCH MCHC RDW [place] % (Auto) Eos % (Auto) [place] # Eos # Seg Neutrophils % Seg Neuts % (Manual) Lymphocytes % (Manual) Monocytes % (Manual) Eosinophils % (Manual) Basophils % (Manual) Seg Neutrophils # Man Lymphocytes # (Manual) Monocytes # (Manual) Eosinophils # (Manual) Basophils # (Manual) PT 27.6 H INR 2.38 H D-Dimer Heparin Anti-Xa Level POC ABG pH POC ABG pCO2 POC ABG pO2 VBG pH Potassium Chloride 90.8 L Carbon Dioxide 40 H BUN 30 H Glucose 149 H POC Glucose 132 H Lactic Acid Calcium Magnesium 2.40 H NT-Pro-B Natriuret Pep Total Protein Albumin [facility] 08/22/17 08/22/17 08/22/17 13:54 16:38 21:07 WBC RBC Hgb Hct MCV MCH MCHC RDW [place] % (Auto) Eos % (Auto) [place] # Eos # Seg Neutrophils % Seg Neuts % (Manual) Lymphocytes % (Manual) Monocytes % (Manual) Eosinophils % (Manual) Basophils % (Manual) Seg Neutrophils # Man Lymphocytes # (Manual) Monocytes # (Manual) Eosinophils # (Manual) Basophils # (Manual) PT INR D-Dimer Heparin Anti-Xa Level POC ABG pH POC ABG pCO2 POC ABG pO2 VBG pH Potassium Chloride Carbon Dioxide BUN Glucose POC Glucose 189 H 192 H 181 H Lactic Acid Calcium Magnesium NT-Pro-B Natriuret Pep Total Protein Albumin [facility] 08/23/17 08/23/17 08/23/17 05:25 08:18 12:27 WBC RBC Hgb Hct MCV MCH MCHC RDW [place] % (Auto) Eos % (Auto) [place] # Eos # Seg Neutrophils % Seg Neuts % (Manual) Lymphocytes % (Manual) Monocytes % (Manual) Eosinophils % (Manual) Basophils % (Manual) Seg Neutrophils # Man Lymphocytes # (Manual) Monocytes # (Manual) Eosinophils # (Manual) Basophils # (Manual) PT 28.2 H INR 2.45 H D-Dimer Heparin Anti-Xa Level POC ABG pH POC ABG pCO2 POC ABG pO2 VBG pH Potassium Chloride Carbon Dioxide BUN Glucose POC Glucose 168 H 109 H Lactic Acid Calcium Magnesium NT-Pro-B Natriuret Pep Total Protein Albumin [facility] 08/23/17 08/24/17 08/24/17 16:49 08:00 08:24 WBC RBC Hgb Hct MCV MCH MCHC RDW [place] % (Auto) Eos % (Auto) [place] # Eos # Seg Neutrophils % Seg Neuts % (Manual) Lymphocytes % (Manual) Monocytes % (Manual) Eosinophils % (Manual) Basophils % (Manual) Seg Neutrophils # Man Lymphocytes # (Manual) Monocytes # (Manual) Eosinophils # (Manual) Basophils # (Manual) PT 29.3 H INR 2.57 H D-Dimer Heparin Anti-Xa Level POC ABG pH POC ABG pCO2 POC ABG pO2 VBG pH Potassium Chloride Carbon Dioxide BUN Glucose POC Glucose 117 H 144 H Lactic Acid Calcium Magnesium NT-Pro-B Natriuret Pep Total Protein Albumin [facility] 08/24/17 08/24/17 08/24/17 12:57 16:23 21:13 WBC RBC Hgb Hct MCV MCH MCHC RDW [place] % (Auto) Eos % (Auto) [place] # Eos # Seg Neutrophils % Seg Neuts % (Manual) Lymphocytes % (Manual) Monocytes % (Manual) Eosinophils % (Manual) Basophils % (Manual) Seg Neutrophils # Man Lymphocytes # (Manual) Monocytes # (Manual) Eosinophils # (Manual) Basophils # (Manual) PT INR D-Dimer Heparin Anti-Xa Level POC ABG pH POC ABG pCO2 POC ABG pO2 VBG pH Potassium Chloride Carbon Dioxide BUN Glucose POC Glucose 113 H 145 H 209 H Lactic Acid Calcium Magnesium NT-Pro-B Natriuret Pep Total Protein Albumin [facility] 08/25/17 08/25/17 08/25/17 05:00 08:07 12:00 WBC RBC Hgb Hct MCV MCH MCHC RDW [place] % (Auto) Eos % (Auto) [place] # Eos # Seg Neutrophils % Seg Neuts % (Manual) Lymphocytes % (Manual) Monocytes % (Manual) Eosinophils % (Manual) Basophils % (Manual) Seg Neutrophils # Man Lymphocytes # (Manual) Monocytes # (Manual) Eosinophils # (Manual) Basophils # (Manual) PT 29.1 H INR 2.55 H D-Dimer Heparin Anti-Xa Level POC ABG pH POC ABG pCO2 POC ABG pO2 VBG pH Potassium Chloride Carbon Dioxide BUN Glucose POC Glucose 129 H 125 H Lactic Acid Calcium Magnesium NT-Pro-B Natriuret Pep Total Protein Albumin [facility] 08/25/17 08/25/17 08/26/17 17:04 22:11 06:15 WBC RBC Hgb Hct MCV MCH MCHC RDW [place] % (Auto) Eos % (Auto) [place] # Eos # Seg Neutrophils % Seg Neuts % (Manual) Lymphocytes % (Manual) Monocytes % (Manual) Eosinophils % (Manual) Basophils % (Manual) Seg Neutrophils # Man Lymphocytes # (Manual) Monocytes # (Manual) Eosinophils # (Manual) Basophils # (Manual) PT 29.1 H INR 2.55 H D-Dimer Heparin Anti-Xa Level POC ABG pH POC ABG pCO2 POC ABG pO2 VBG pH Potassium Chloride Carbon Dioxide BUN Glucose POC Glucose 124 H 130 H Lactic Acid Calcium Magnesium NT-Pro-B Natriuret Pep Total Protein Albumin TSH 08/26/17 08/26/17 08/26/17 09:04 12:13 21:32 WBC RBC Hgb Hct MCV MCH MCHC RDW [place] % (Auto) Eos % (Auto) [place] # Eos # Seg Neutrophils % Seg Neuts % (Manual) Lymphocytes % (Manual) Monocytes % (Manual) Eosinophils % (Manual) Basophils % (Manual) Seg Neutrophils # Man Lymphocytes # (Manual) Monocytes # (Manual) Eosinophils # (Manual) Basophils # (Manual) PT INR D-Dimer Heparin Anti-Xa Level POC ABG pH POC ABG pCO2 POC ABG pO2 VBG pH Potassium Chloride Carbon Dioxide BUN Glucose POC Glucose 137 H 201 H 185 H Lactic Acid Calcium Magnesium NT-Pro-B Natriuret Pep Total Protein Albumin TSH 08/27/17 08/27/17 08/27/17 04:00 04:00 05:00 WBC RBC 5.15 H Hgb Hct MCV 74 L MCH 23 L MCHC 31 L RDW 20.4 H [place] % (Auto) 11.0 H Eos % (Auto) 5.2 H [place] # 1.2 H Eos # 0.6 H Seg Neutrophils % Seg Neuts % (Manual) Lymphocytes % (Manual) Monocytes % (Manual) Eosinophils % (Manual) Basophils % (Manual) Seg Neutrophils # Man Lymphocytes # (Manual) Monocytes # (Manual) Eosinophils # (Manual) Basophils # (Manual) PT 29.0 H INR 2.53 H D-Dimer Heparin Anti-Xa Level POC ABG pH POC ABG pCO2 POC ABG pO2 VBG pH Potassium Chloride 90.7 L Carbon Dioxide 35 H BUN Glucose 147 H POC Glucose Lactic Acid Calcium Magnesium NT-Pro-B Natriuret Pep Total Protein Albumin TSH 08/27/17 08/27/17 08/27/17 11:44 16:32 21:13 WBC RBC Hgb Hct MCV MCH MCHC RDW [place] % (Auto) Eos % (Auto) [place] # Eos # Seg Neutrophils % Seg Neuts % (Manual) Lymphocytes % (Manual) Monocytes % (Manual) Eosinophils % (Manual) Basophils % (Manual) Seg Neutrophils # Man Lymphocytes # (Manual) Monocytes # (Manual) Eosinophils # (Manual) Basophils # (Manual) PT INR D-Dimer Heparin Anti-Xa Level POC ABG pH POC ABG pCO2 POC ABG pO2 VBG pH Potassium Chloride Carbon Dioxide BUN Glucose POC Glucose 131 H 131 H 197 H Lactic Acid Calcium Magnesium NT-Pro-B Natriuret Pep Total Protein Albumin TSH 08/28/17 08/28/17 08/28/17 06:38 08:11 21:27 WBC RBC Hgb Hct MCV MCH MCHC RDW [place] % (Auto) Eos % (Auto) [place] # Eos # Seg Neutrophils % Seg Neuts % (Manual) Lymphocytes % (Manual) Monocytes % (Manual) Eosinophils % (Manual) Basophils % (Manual) Seg Neutrophils # Man Lymphocytes # (Manual) Monocytes # (Manual) Eosinophils # (Manual) Basophils # (Manual) PT 26.5 H INR 2.27 H D-Dimer Heparin Anti-Xa Level POC ABG pH POC ABG pCO2 POC ABG pO2 VBG pH Potassium Chloride Carbon Dioxide BUN Glucose POC Glucose 142 H 201 H Lactic Acid Calcium Magnesium NT-Pro-B Natriuret Pep Total Protein Albumin TSH 08/29/17 08/29/17 05:47 08:15 WBC RBC Hgb Hct MCV MCH MCHC RDW [place] % (Auto) Eos % (Auto) [place] # Eos # Seg Neutrophils % Seg Neuts % (Manual) Lymphocytes % (Manual) Monocytes % (Manual) Eosinophils % (Manual) Basophils % (Manual) Seg Neutrophils # Man Lymphocytes # (Manual) Monocytes # (Manual) Eosinophils # (Manual) Basophils # (Manual) PT 28.9 H INR 2.52 H D-Dimer Heparin Anti-Xa Level POC ABG pH POC ABG pCO2 POC ABG pO2 VBG pH Potassium Chloride Carbon Dioxide BUN Glucose POC Glucose 168 H Lactic Acid Calcium Magnesium NT-Pro-B Natriuret Pep Total Protein Albumin TSH Chest x-ray: report reviewed, image reviewed
--- NOTE | 2017-08-29 18:07 | Progress Note ---
Assessment and Plan Assessment and plan: --Acute on chronic hypoxic, hypercapnic respiratory failure on high flow oxygen, wean as tolerated, patient will use NIV at home --obstructive sleep apnea/obesity hypoventilation syndrome/morbid obesity Continue, BiPAP at night, out patient sleep study --Counseling done advised weight loss, exercise as tolerated and weight reduction --Continue wound care and lymphedema care inpatient and outpatient post discharge --Morbid obesity; BMI of 84; counseling done, --Acute systolic congestive heart failure ; EF 40-45% with severe pulmonary hypertension Continue diuretics Lasix 40 every 8 hours, input output monitoring, fluid restriction --Severe pulmonary hypertension on echocardiogram; diuretics, fluid restriction , --Left lower lobe pneumonia/atelectasis/community-acquired; resolved, completed treatment --Chronic massive lymphedema; supportive care, wound care and lymphedema care as needed --Empiric anticoagulation on Coumadin, therapeutic INR, target INR 2-3 --Discharge planning. Case management, possible home with home health when patient is stable --Physical therapy occupational therapy as tolerated Plan of care reviewed with the patient family member and his nurse as well as the case management History Interval history: Patient seen and examined medical records reviewed Continues to require high flow oxygen No new complaints Vital signs reviewed Hospitalist Physical - Constitutional Vitals: Temp Pulse Resp BP Pulse Ox 98.7 F 91 H 20 125/76 94 08/29/17 16:22 08/29/17 16:22 08/29/17 16:22 08/29/17 16:22 08/29/17 16:22 General appearance: Present: no acute distress, well-nourished, obese (morbidly obese) - EENT Eyes: Present: PERRL, EOM intact - Neck Neck: Present: supple, normal ROM - Respiratory Respiratory effort: normal Respiratory: bilateral: diminished, negative: rales, rhonchi, wheezing - Cardiovascular Rhythm: regular Heart Sounds: Present: S1 & S2 - Extremities Extremities: no ischemia, abnormal (chronic lymphedema) Extremity abnormal: edema, other (obese) - Abdominal General gastrointestinal: soft, non-tender, non-distended, normal bowel sounds - Integumentary Integumentary: Present: clear, warm - Psychiatric Psychiatric: appropriate mood/affect, cooperative - Neurologic Neurologic: CNII-XII intact, moves all extremities Results - Labs CBC & Chem 7: 08/27/17 04:00 08/27/17 04:00 Labs: Laboratory Last Values WBC 10.7 K/mm3 (4.5-11.0) 08/27/17 04:00 RBC 5.15 M/mm3 (3.65-5.03) H 08/27/17 04:00 Hgb 12.0 gm/dl (11.8-15.2) 08/27/17 04:00 Hct 38.2 % (35.5-45.6) 08/27/17 04:00 MCV 74 fl (84-94) L 08/27/17 04:00 MCH 23 pg (28-32) L 08/27/17 04:00 MCHC 31 % (32-34) L 08/27/17 04:00 RDW 20.4 % (13.2-15.2) H 08/27/17 04:00 Plt Count 234 K/mm3 (140-440) 08/27/17 04:00 Lymph % (Auto) 25.2 % (13.4-35.0) 08/27/17 04:00 [place] % (Auto) 11.0 % (0.0-7.3) H 08/27/17 04:00 Eos % (Auto) 5.2 % (0.0-4.3) H 08/27/17 04:00 Baso % (Auto) 1.2 % (0.0-1.8) 08/27/17 04:00 Lymph # 2.7 K/mm3 (1.2-5.4) 08/27/17 04:00 [place] # 1.2 K/mm3 (0.0-0.8) H 08/27/17 04:00 Eos # 0.6 K/mm3 (0.0-0.4) H 08/27/17 04:00 Baso # 0.1 K/mm3 (0.0-0.1) 08/27/17 04:00 Add Manual Diff Complete 08/09/17 10:57 Total Counted 100 08/09/17 10:57 Seg Neutrophils % 57.4 % (40.0-70.0) 08/27/17 04:00 Seg Neuts % (Manual) 64.0 % (40.0-70.0) 08/09/17 10:57 Band Neutrophils % 4.0 % 08/09/17 10:57 Lymphocytes % (Manual) 15.0 % (13.4-35.0) 08/09/17 10:57 Reactive Lymphs % (Man) 3.0 % 08/09/17 10:57 Monocytes % (Manual) 9.0 % (0.0-7.3) H 08/09/17 10:57 Eosinophils % (Manual) 5.0 % (0.0-4.3) H 08/09/17 10:57 Basophils % (Manual) 0 % (0.0-1.8) 08/09/17 10:57 Metamyelocytes % 0 % 08/09/17 10:57 Myelocytes % 0 % 08/09/17 10:57 Promyelocytes % 0 % 08/09/17 10:57 Blast Cells % 0 % 08/09/17 10:57 Nucleated RBC % Not Reportable 08/09/17 10:57 Seg Neutrophils # 6.2 K/mm3 (1.8-7.7) 08/27/17 04:00 Seg Neutrophils # Man 9.3 K/mm3 (1.8-7.7) H 08/09/17 10:57 Band Neutrophils # 0.6 K/mm3 08/09/17 10:57 Lymphocytes # (Manual) 2.2 K/mm3 (1.2-5.4) 08/09/17 10:57 Abs React Lymphs (Man) 0.4 K/mm3 08/09/17 10:57 Monocytes # (Manual) 1.3 K/mm3 (0.0-0.8) H 08/09/17 10:57 Eosinophils # (Manual) 0.7 K/mm3 (0.0-0.4) H 08/09/17 10:57 Basophils # (Manual) 0.0 K/mm3 (0.0-0.1) 08/09/17 10:57 Metamyelocytes # 0.0 K/mm3 08/09/17 10:57 Myelocytes # 0.0 K/mm3 08/09/17 10:57 Promyelocytes # 0.0 K/mm3 08/09/17 10:57 Blast Cells # 0.0 K/mm3 08/09/17 10:57 WBC Morphology Not Reportable 08/09/17 10:57 Hypersegmented Neuts Not Reportable 08/09/17 10:57 Hyposegmented Neuts Not Reportable 08/09/17 10:57 Hypogranular Neuts Not Reportable 08/09/17 10:57 Smudge Cells Not Reportable 08/09/17 10:57 Toxic Granulation Not Reportable 08/09/17 10:57 Toxic Vacuolation Not Reportable 08/09/17 10:57 Dohle Bodies Not Reportable 08/09/17 10:57 Pelger-Huet Anomaly Not Reportable 08/09/17 10:57 Noa Rods Not Reportable 08/09/17 10:57 Platelet Estimate Consistent w auto 08/09/17 10:57 Clumped Platelets Not Reportable 08/09/17 10:57 Plt Clumps, EDTA Not Reportable 08/09/17 10:57 Large Platelets Not Reportable 08/09/17 10:57 Giant Platelets Few 08/09/17 10:57 Platelet Satelliting Not Reportable 08/09/17 10:57 Plt Morphology Comment Not Reportable 08/09/17 10:57 RBC Morphology Not Reportable 08/09/17 10:57 Dimorphic RBCs Not Reportable 08/09/17 10:57 Polychromasia Not Reportable 08/09/17 10:57 Hypochromasia 1+ 08/09/17 10:57 Poikilocytosis 1+ 08/09/17 10:57 Anisocytosis 1+ 08/09/17 10:57 Microcytosis 1+ 08/09/17 10:57 Macrocytosis Not Reportable 08/09/17 10:57 Spherocytes Not Reportable 08/09/17 10:57 Pappenheimer Bodies Not Reportable 08/09/17 10:57 Sickle Cells Not Reportable 08/09/17 10:57 Target Cells Not Reportable 08/09/17 10:57 Tear Drop Cells Not Reportable 08/09/17 10:57 Ovalocytes Few 08/09/17 10:57 Stomatocytes 1+ 08/09/17 10:57 Helmet Cells Not Reportable 08/09/17 10:57 [place] Bodies Not Reportable 08/09/17 10:57 [place] Rings Not Reportable 08/09/17 10:57 [place] Cells Not Reportable 08/09/17 10:57 Bite Cells Not Reportable 08/09/17 10:57 Crenated Cell Not Reportable 08/09/17 10:57 Elliptocytes Not Reportable 08/09/17 10:57 Acanthocytes (Spur) Not Reportable 08/09/17 10:57 Rouleaux Not Reportable 08/09/17 10:57 Hemoglobin C Crystals Not Reportable 08/09/17 10:57 Schistocytes Not Reportable 08/09/17 10:57 Malaria parasites Not Reportable 08/09/17 10:57 Cuco Bodies Not Reportable 08/09/17 10:57 Hem Pathologist Commnt No 08/09/17 10:57 PT 28.9 Sec. (12.2-14.9) H 08/29/17 05:47 INR 2.52 (0.87-1.13) H 08/29/17 05:47 APTT 29.0 Sec. (24.2-36.6) 08/14/17 10:36 D-Dimer 1693.79 ng/mlDDU (0-234) H 08/17/17 21:48 Heparin Anti-Xa Level 0.43 U.I./ml (0.3-0.7) 08/17/17 05:58 POC ABG pH 7.471 (7.35-7.45) H 08/15/17 04:20 POC ABG pCO2 53.8 (35-45) H 08/15/17 04:20 POC ABG pO2 81 (80-105) 08/15/17 04:20 POC ABG HCO3 39.3 08/15/17 04:20 POC ABG Total CO2 41 08/15/17 04:20 POC ABG O2 Sat 96 08/15/17 04:20 POC ABG Base Excess 16 08/15/17 04:20 VBG pH 7.463 (7.320-7.420) H 08/07/17 16:58 FiO2 100 % 08/15/17 04:20 Sodium 141 mmol/L (137-145) 08/27/17 04:00 Potassium 3.6 mmol/L (3.6-5.0) 08/27/17 04:00 Chloride 90.7 mmol/L (98-107) L 08/27/17 04:00 Carbon Dioxide 35 mmol/L (22-30) H 08/27/17 04:00 Anion Gap 19 mmol/L 08/27/17 04:00 BUN 13 mg/dL (9-20) 08/27/17 04:00 Creatinine 0.8 mg/dL (0.8-1.5) 08/27/17 04:00 Estimated GFR > 60 ml/min 08/27/17 04:00 BUN/Creatinine Ratio 16 % 08/27/17 04:00 Glucose 147 mg/dL (75-100) H 08/27/17 04:00 POC Glucose 168 (70-105) H 08/29/17 08:15 Lactic Acid 0.90 mmol/L (0.7-2.0) 08/08/17 06:01 Calcium 9.1 mg/dL (8.4-10.2) 08/27/17 04:00 Magnesium 2.00 mg/dL (1.7-2.3) 08/27/17 04:00 Total Bilirubin 0.70 mg/dL (0.1-1.2) 08/16/17 14:04 Direct Bilirubin 0.2 mg/dL (0-0.2) 08/11/17 07:12 Indirect Bilirubin 0.3 mg/dL 08/11/17 07:12 AST 11 units/L (5-40) 08/16/17 14:04 ALT 10 units/L (7-56) 08/16/17 14:04 Alkaline Phosphatase 68 units/L (35-129) 08/16/17 14:04 NT-Pro-B Natriuret Pep 6070 pg/mL (0-450) H 08/14/17 10:36 Total Protein 5.8 g/dL (6.3-8.2) L 08/16/17 14:04 Albumin 3.0 g/dL (3.9-5) L 08/16/17 14:04 Albumin/Globulin Ratio 1.1 % 08/16/17 14:04 TSH 4.780 mlU/mL (0.270-4.200) H 08/11/17 07:12 Free T4 0.86 ng/dL (0.76-1.46) 08/11/17 07:12
[2017-08-29] MEDS: COUMADIN PO SCH (18:21)
[2017-08-30] MEDS: NOVOLOG SUB-Q SCH ×5 (00:02→22:53)
[2017-08-30] MEDS: LASIX IV SCH ×3 (03:50→18:18)
[2017-08-30 07:55] LABS: INR 2.87 (0.87-1.13)
[2017-08-30] MEDS: K-DUR PO SCH (11:19)
--- NOTE | 2017-08-30 16:16 | Progress Note ---
Assessment and Plan Imp: 1. RUSSEL 2. OHS 3. Morbid obesity 4. A/C respiratory failure, hypoxia and hypercapnea 5. NICMP 6. A/C systolic CHF 7. Pulm HTN 2/2 above Rec: 1. Diuresis 2. BIPAP QHS and prn 3. Agree w/ home NIV and O2 4. Weight loss 5. Wean O2 to keep sats 88-94% -> have personally asked RT to be more aggressive weaning and placed numerous orders to that effect (turned down to FiO2 of 30% and asked RT to try on regular NC daily) 6. Incentive anthony 10x per hour 7. Will follow; complex patient/decision-making Plan of care reviewed with patient, he understands/agrees Subjective Date of service: 08/30/17 Principal diagnosis: heart failure, hypercapnic respiratory failure, severe morbid obesity Interval history: No events. Remains on HFNC at 15LPM and 35%. SOB better. No new complaints. Active Medications Acetaminophen (Tylenol) 650 mg PO Q4H PRN PRN Reason: /Fever >100.5/ARENAS Last Admin: 08/10/17 09:28 Dose: 650 mg Albuterol (Proventil) 2.5 mg IH Q4HRT PRN PRN Reason: Shortness Of Breath Last Admin: 08/19/17 20:22 Dose: 2.5 mg Bisacodyl (Dulcolax) 10 mg PA QDAY PRN PRN Reason: Constipation unrelieved by [facility] Furosemide (Lasix) 40 mg IV Q8H [facility] Last Admin: 08/30/17 11:19 Dose: 40 mg Guaifenesin (Guaifenesin Dm Syrup) 10 ml PO Q6H PRN PRN Reason: Cough Last Admin: 08/23/17 22:33 Dose: 10 ml Ibuprofen (Motrin) 600 mg PO Q8H PRN PRN Reason: Pain, Mild (1-3) Last Admin: 08/17/17 17:30 Dose: 600 mg Insulin Aspart (Novolog) 0 units SUB-Q ACHS MICHELLE PRN Reason: Protocol Last Admin: 08/30/17 08:20 Dose: 2 units Magnesium Hydroxide (Milk Of Magnesia) 30 ml PO Q4H PRN PRN Reason: Constipation Ondansetron HCl (Zofran) 4 mg IV Q8H PRN PRN Reason: N/V unrelieved by Reglan Last Admin: 08/07/17 23:02 Dose: 4 mg Potassium Chloride (K-Dur) 20 meq PO QDAY [facility] Last Admin: 08/30/17 11:19 Dose: 20 meq Warfarin Sodium (Coumadin Pharmacy To Dose) 1 each PO PKCONSULT [facility] Warfarin Sodium (Coumadin) 7.5 mg PO DAILY@1700 [facility] Last Admin: 08/29/17 18:21 Dose: 7.5 mg Objective Vital Signs - 12hr 08/30/17 08/30/17 08/30/17 08:00 08:01 14:15 Temperature 98.5 F 98.2 F Pulse Rate 76 82 81 Respiratory 24 22 Rate Blood Pressure 154/81 Blood Pressure 112/72 [Left] O2 Sat by Pulse 94 93 Oximetry Constitutional: no acute distress, alert Eyes: non-icteric ENT: oropharynx moist Neck: other (extremely large in circumference) Effort: normal Ascultation: Bilateral: clear Percussion: Bilateral: not dull Cardiovascular: regular rate and rhythm (no mrg) Gastrointestinal: normoactive bowel sounds, soft, non-tender, non-distended, other (obese) Integumentary: other (chronic venous stasis changes LEs) Extremities: no cyanosis, edema (lymphedema), other (bilateral lymphedema with chronic changes) Neurologic: normal mental status, non-focal exam, pupils equal and round, CN II- XII normal Psychiatric: mood appropriate, affect normal CBC and BMP: 08/27/17 04:00 08/27/17 04:00 ABG, PT/INR, D-dimer: ABG POC ABG pH 7.471 (7.35-7.45) H 08/15/17 04:20 POC ABG pCO2 53.8 (35-45) H 08/15/17 04:20 POC ABG pO2 81 (80-105) 08/15/17 04:20 POC ABG HCO3 39.3 08/15/17 04:20 POC ABG Total CO2 41 08/15/17 04:20 POC ABG O2 Sat 96 08/15/17 04:20 PT/INR, D-dimer PT 32.1 Sec. (12.2-14.9) H 08/30/17 Unknown INR 2.87 (0.87-1.13) H 08/30/17 Unknown D-Dimer 1693.79 ng/mlDDU (0-234) H 08/17/17 21:48 Abnormal lab findings: Abnormal Labs 08/07/17 08/07/17 08/07/17 16:58 16:58 16:58 WBC 16.1 H RBC 5.44 H Hgb Hct MCV 74 L MCH 22 L MCHC 29 L RDW 21.7 H [place] % (Auto) Eos % (Auto) [place] # Eos # Seg Neutrophils % Seg Neuts % (Manual) 87.0 H Lymphocytes % (Manual) 7.0 L Monocytes % (Manual) Eosinophils % (Manual) Basophils % (Manual) 2.0 H Seg Neutrophils # Man 14.0 H Lymphocytes # (Manual) 1.1 L Monocytes # (Manual) Eosinophils # (Manual) Basophils # (Manual) 0.3 H PT 16.2 H INR 1.23 H D-Dimer Heparin Anti-Xa Level POC ABG pH POC ABG pCO2 POC ABG pO2 VBG pH Potassium Chloride 96.2 L Carbon Dioxide 31 H BUN Glucose POC Glucose Lactic Acid Calcium Magnesium NT-Pro-B Natriuret Pep Total Protein 5.8 L Albumin 3.0 L TSH 08/07/17 08/07/17 08/07/17 16:58 16:58 16:58 WBC RBC Hgb Hct MCV MCH MCHC RDW [place] % (Auto) Eos % (Auto) [place] # Eos # Seg Neutrophils % Seg Neuts % (Manual) Lymphocytes % (Manual) Monocytes % (Manual) Eosinophils % (Manual) Basophils % (Manual) Seg Neutrophils # Man Lymphocytes # (Manual) Monocytes # (Manual) Eosinophils # (Manual) Basophils # (Manual) PT INR D-Dimer Heparin Anti-Xa Level POC ABG pH POC ABG pCO2 POC ABG pO2 VBG pH 7.463 H Potassium Chloride Carbon Dioxide BUN Glucose POC Glucose Lactic Acid 2.10 H* Calcium Magnesium NT-Pro-B Natriuret Pep 2205 H Total Protein Albumin TSH 08/09/17 08/09/17 08/10/17 10:57 13:37 08:04 WBC 14.5 H RBC Hgb 10.8 L 10.8 L Hct 35.1 L MCV 74 L 76 L MCH 23 L 23 L MCHC 31 L 30 L RDW 21.2 H 21.0 H [place] % (Auto) Eos % (Auto) [place] # Eos # Seg Neutrophils % 75.4 H Seg Neuts % (Manual) Lymphocytes % (Manual) Monocytes % (Manual) 9.0 H Eosinophils % (Manual) 5.0 H Basophils % (Manual) Seg Neutrophils # Man 9.3 H Lymphocytes # (Manual) Monocytes # (Manual) 1.3 H Eosinophils # (Manual) 0.7 H Basophils # (Manual) PT INR D-Dimer Heparin Anti-Xa Level POC ABG pH POC ABG pCO2 POC ABG pO2 VBG pH Potassium Chloride 96.9 L Carbon Dioxide 32 H BUN Glucose POC Glucose Lactic Acid Calcium 8.3 L Magnesium NT-Pro-B Natriuret Pep Total Protein Albumin TSH 08/10/17 08/10/17 08/10/17 08:04 08:04 14:50 WBC RBC Hgb Hct MCV MCH MCHC RDW [place] % (Auto) Eos % (Auto) [place] # Eos # Seg Neutrophils % Seg Neuts % (Manual) Lymphocytes % (Manual) Monocytes % (Manual) Eosinophils % (Manual) Basophils % (Manual) Seg Neutrophils # Man Lymphocytes # (Manual) Monocytes # (Manual) Eosinophils # (Manual) Basophils # (Manual) PT INR D-Dimer Heparin Anti-Xa Level POC ABG pH POC ABG pCO2 65.9 H POC ABG pO2 VBG pH Potassium Chloride Carbon Dioxide 32 H BUN Glucose 115 H POC Glucose Lactic Acid Calcium Magnesium NT-Pro-B Natriuret Pep Total Protein Albumin TSH 4.900 H 08/11/17 08/11/17 08/11/17 07:12 07:12 07:12 WBC RBC Hgb 10.3 L Hct MCV 76 L MCH 22 L MCHC 29 L RDW 21.4 H [place] % (Auto) 8.8 H Eos % (Auto) [place] # Eos # Seg Neutrophils % Seg Neuts % (Manual) Lymphocytes % (Manual) Monocytes % (Manual) Eosinophils % (Manual) Basophils % (Manual) Seg Neutrophils # Man Lymphocytes # (Manual) Monocytes # (Manual) Eosinophils # (Manual) Basophils # (Manual) PT INR D-Dimer Heparin Anti-Xa Level POC ABG pH POC ABG pCO2 POC ABG pO2 VBG pH Potassium Chloride Carbon Dioxide 35 H BUN Glucose 105 H POC Glucose Lactic Acid Calcium Magnesium NT-Pro-B Natriuret Pep Total Protein 5.8 L Albumin 3.1 L TSH 4.780 H 08/12/17 08/12/1718 04:31 04:31 11:34 WBC RBC Hgb 10.7 L Hct 35.3 L MCV 76 L MCH 23 L MCHC 30 L RDW 21.3 H [place] % (Auto) Eos % (Auto) [place] # Eos # Seg Neutrophils % Seg Neuts % (Manual) Lymphocytes % (Manual) Monocytes % (Manual) Eosinophils % (Manual) Basophils % (Manual) Seg Neutrophils # Man Lymphocytes # (Manual) Monocytes # (Manual) Eosinophils # (Manual) Basophils # (Manual) PT INR D-Dimer Heparin Anti-Xa Level POC ABG pH POC ABG pCO2 61.1 H POC ABG pO2 57 L VBG pH Potassium Chloride 95.8 L Carbon Dioxide 33 H BUN Glucose POC Glucose Lactic Acid Calcium Magnesium NT-Pro-B Natriuret Pep Total Protein 5.8 L Albumin 3.0 L TSH 08/14/17 08/14/17 08/14/17 10:36 10:36 10:36 WBC RBC Hgb 10.7 L Hct MCV MCH MCHC RDW [place] % (Auto) Eos % (Auto) [place] # Eos # Seg Neutrophils % Seg Neuts % (Manual) Lymphocytes % (Manual) Monocytes % (Manual) Eosinophils % (Manual) Basophils % (Manual) Seg Neutrophils # Man Lymphocytes # (Manual) Monocytes # (Manual) Eosinophils # (Manual) Basophils # (Manual) PT 15.8 H INR 1.20 H D-Dimer Heparin Anti-Xa Level POC ABG pH POC ABG pCO2 POC ABG pO2 VBG pH Potassium Chloride Carbon Dioxide BUN Glucose POC Glucose Lactic Acid Calcium Magnesium NT-Pro-B Natriuret Pep 6070 H Total Protein Albumin [facility] 08/14/17 08/14/17 08/14/17 17:23 20:37 23:18 WBC RBC Hgb Hct MCV MCH MCHC RDW [place] % (Auto) Eos % (Auto) [place] # Eos # Seg Neutrophils % Seg Neuts % (Manual) Lymphocytes % (Manual) Monocytes % (Manual) Eosinophils % (Manual) Basophils % (Manual) Seg Neutrophils # Man Lymphocytes # (Manual) Monocytes # (Manual) Eosinophils # (Manual) Basophils # (Manual) PT INR D-Dimer Heparin Anti-Xa Level < 0.10 L POC ABG pH 7.566 H 7.494 H POC ABG pCO2 51.6 H POC ABG pO2 45 L 52 L VBG pH Potassium Chloride Carbon Dioxide BUN Glucose POC Glucose Lactic Acid Calcium Magnesium NT-Pro-B Natriuret Pep Total Protein Albumin TSH 08/15/17 08/15/17 08/15/17 04:15 04:20 08:26 WBC RBC Hgb Hct MCV MCH MCHC RDW [place] % (Auto) Eos % (Auto) [place] # Eos # Seg Neutrophils % Seg Neuts % (Manual) Lymphocytes % (Manual) Monocytes % (Manual) Eosinophils % (Manual) Basophils % (Manual) Seg Neutrophils # Man Lymphocytes # (Manual) Monocytes # (Manual) Eosinophils # (Manual) Basophils # (Manual) PT 16.3 H INR 1.24 H D-Dimer Heparin Anti-Xa Level 0.12 L POC ABG pH 7.471 H POC ABG pCO2 53.8 H POC ABG pO2 VBG pH Potassium Chloride Carbon Dioxide BUN Glucose POC Glucose Lactic Acid Calcium Magnesium NT-Pro-B Natriuret Pep Total Protein Albumin TSH 08/15/17 08/16/17 08/16/17 22:00 05:25 05:25 WBC RBC Hgb 11.1 L Hct MCV MCH MCHC RDW [place] % (Auto) Eos % (Auto) [place] # Eos # Seg Neutrophils % Seg Neuts % (Manual) Lymphocytes % (Manual) Monocytes % (Manual) Eosinophils % (Manual) Basophils % (Manual) Seg Neutrophils # Man Lymphocytes # (Manual) Monocytes # (Manual) Eosinophils # (Manual) Basophils # (Manual) PT 20.1 H INR 1.61 H D-Dimer Heparin Anti-Xa Level 0.17 L 0.28 L POC ABG pH POC ABG pCO2 POC ABG pO2 VBG pH Potassium Chloride Carbon Dioxide BUN Glucose POC Glucose Lactic Acid Calcium Magnesium NT-Pro-B Natriuret Pep Total Protein Albumin TSH 08/16/17 08/16/17 08/17/17 14:04 14:04 05:58 WBC RBC 5.10 H Hgb 11.2 L Hct MCV 75 L MCH 22 L MCHC 29 L RDW 20.9 H [place] % (Auto) Eos % (Auto) [place] # Eos # Seg Neutrophils % Seg Neuts % (Manual) Lymphocytes % (Manual) Monocytes % (Manual) Eosinophils % (Manual) Basophils % (Manual) Seg Neutrophils # Man Lymphocytes # (Manual) Monocytes # (Manual) Eosinophils # (Manual) Basophils # (Manual) PT 34.7 H INR 3.20 H D-Dimer Heparin Anti-Xa Level POC ABG pH POC ABG pCO2 POC ABG pO2 VBG pH Potassium 3.5 L Chloride 93.1 L Carbon Dioxide 37 H BUN 27 H Glucose 226 H POC Glucose Lactic Acid Calcium Magnesium NT-Pro-B Natriuret Pep Total Protein 5.8 L Albumin 3.0 L TSH 08/17/17 08/18/17 08/18/17 21:48 04:00 05:23 WBC RBC Hgb 11.3 L Hct MCV MCH MCHC RDW [place] % (Auto) Eos % (Auto) [place] # Eos # Seg Neutrophils % Seg Neuts % (Manual) Lymphocytes % (Manual) Monocytes % (Manual) Eosinophils % (Manual) Basophils % (Manual) Seg Neutrophils # Man Lymphocytes # (Manual) Monocytes # (Manual) Eosinophils # (Manual) Basophils # (Manual) PT 24.2 H INR 2.04 H D-Dimer 1693.79 H Heparin Anti-Xa Level POC ABG pH POC ABG pCO2 POC ABG pO2 VBG pH Potassium Chloride Carbon Dioxide BUN Glucose POC Glucose Lactic Acid Calcium Magnesium NT-Pro-B Natriuret Pep Total Protein Albumin TSH 08/18/17 08/19/17 08/20/17 05:23 04:30 03:00 WBC RBC Hgb 11.7 L Hct MCV MCH MCHC RDW [place] % (Auto) Eos % (Auto) [place] # Eos # Seg Neutrophils % Seg Neuts % (Manual) Lymphocytes % (Manual) Monocytes % (Manual) Eosinophils % (Manual) Basophils % (Manual) Seg Neutrophils # Man Lymphocytes # (Manual) Monocytes # (Manual) Eosinophils # (Manual) Basophils # (Manual) PT 20.0 H INR 1.60 H D-Dimer Heparin Anti-Xa Level POC ABG pH POC ABG pCO2 POC ABG pO2 VBG pH Potassium Chloride 86.8 L Carbon Dioxide 38 H BUN 33 H Glucose 355 H POC Glucose Lactic Acid Calcium Magnesium NT-Pro-B Natriuret Pep Total Protein Albumin [facility] 08/20/17 08/20/17 08/20/17 03:00 03:00 17:37 WBC RBC Hgb Hct MCV MCH MCHC RDW [place] % (Auto) Eos % (Auto) [place] # Eos # Seg Neutrophils % Seg Neuts % (Manual) Lymphocytes % (Manual) Monocytes % (Manual) Eosinophils % (Manual) Basophils % (Manual) Seg Neutrophils # Man Lymphocytes # (Manual) Monocytes # (Manual) Eosinophils # (Manual) Basophils # (Manual) PT 22.7 H INR 1.87 H D-Dimer Heparin Anti-Xa Level POC ABG pH POC ABG pCO2 POC ABG pO2 VBG pH Potassium Chloride 91.3 L Carbon Dioxide 38 H BUN 34 H Glucose 391 H POC Glucose 312 H Lactic Acid Calcium Magnesium NT-Pro-B Natriuret Pep Total Protein Albumin TSH 08/20/17 08/21/17 08/21/17 22:34 06:40 08:22 WBC RBC Hgb Hct MCV MCH MCHC RDW [place] % (Auto) Eos % (Auto) [place] # Eos # Seg Neutrophils % Seg Neuts % (Manual) Lymphocytes % (Manual) Monocytes % (Manual) Eosinophils % (Manual) Basophils % (Manual) Seg Neutrophils # Man Lymphocytes # (Manual) Monocytes # (Manual) Eosinophils # (Manual) Basophils # (Manual) PT 28.6 H INR 2.49 H D-Dimer Heparin Anti-Xa Level POC ABG pH POC ABG pCO2 POC ABG pO2 VBG pH Potassium Chloride Carbon Dioxide BUN Glucose POC Glucose 166 H 123 H Lactic Acid Calcium Magnesium NT-Pro-B Natriuret Pep Total Protein Albumin TSH 08/21/17 08/21/17 08/21/17 12:29 17:08 21:17 WBC RBC Hgb Hct MCV MCH MCHC RDW [place] % (Auto) Eos % (Auto) [place] # Eos # Seg Neutrophils % Seg Neuts % (Manual) Lymphocytes % (Manual) Monocytes % (Manual) Eosinophils % (Manual) Basophils % (Manual) Seg Neutrophils # Man Lymphocytes # (Manual) Monocytes # (Manual) Eosinophils # (Manual) Basophils # (Manual) PT INR D-Dimer Heparin Anti-Xa Level POC ABG pH POC ABG pCO2 POC ABG pO2 VBG pH Potassium Chloride Carbon Dioxide BUN Glucose POC Glucose 182 H 135 H 145 H Lactic Acid Calcium Magnesium NT-Pro-B Natriuret Pep Total Protein Albumin TSH 08/22/17 08/22/17 08/22/17 04:00 05:00 08:35 WBC RBC Hgb Hct MCV MCH MCHC RDW [place] % (Auto) Eos % (Auto) [place] # Eos # Seg Neutrophils % Seg Neuts % (Manual) Lymphocytes % (Manual) Monocytes % (Manual) Eosinophils % (Manual) Basophils % (Manual) Seg Neutrophils # Man Lymphocytes # (Manual) Monocytes # (Manual) Eosinophils # (Manual) Basophils # (Manual) PT 27.6 H INR 2.38 H D-Dimer Heparin Anti-Xa Level POC ABG pH POC ABG pCO2 POC ABG pO2 VBG pH Potassium Chloride 90.8 L Carbon Dioxide 40 H BUN 30 H Glucose 149 H POC Glucose 132 H Lactic Acid Calcium Magnesium 2.40 H NT-Pro-B Natriuret Pep Total Protein Albumin TSH 08/22/17 08/22/17 08/22/17 13:54 16:38 21:07 WBC RBC Hgb Hct MCV MCH MCHC RDW [place] % (Auto) Eos % (Auto) [place] # Eos # Seg Neutrophils % Seg Neuts % (Manual) Lymphocytes % (Manual) Monocytes % (Manual) Eosinophils % (Manual) Basophils % (Manual) Seg Neutrophils # Man Lymphocytes # (Manual) Monocytes # (Manual) Eosinophils # (Manual) Basophils # (Manual) PT INR D-Dimer Heparin Anti-Xa Level POC ABG pH POC ABG pCO2 POC ABG pO2 VBG pH Potassium Chloride Carbon Dioxide BUN Glucose POC Glucose 189 H 192 H 181 H Lactic Acid Calcium Magnesium NT-Pro-B Natriuret Pep Total Protein Albumin TSH 08/23/17 08/23/17 08/23/17 05:25 08:18 12:27 WBC RBC Hgb Hct MCV MCH MCHC RDW [place] % (Auto) Eos % (Auto) [place] # Eos # Seg Neutrophils % Seg Neuts % (Manual) Lymphocytes % (Manual) Monocytes % (Manual) Eosinophils % (Manual) Basophils % (Manual) Seg Neutrophils # Man Lymphocytes # (Manual) Monocytes # (Manual) Eosinophils # (Manual) Basophils # (Manual) PT 28.2 H INR 2.45 H D-Dimer Heparin Anti-Xa Level POC ABG pH POC ABG pCO2 POC ABG pO2 VBG pH Potassium Chloride Carbon Dioxide BUN Glucose POC Glucose 168 H 109 H Lactic Acid Calcium Magnesium NT-Pro-B Natriuret Pep Total Protein Albumin TSH 08/23/17 08/24/17 08/24/17 16:49 08:00 08:24 WBC RBC Hgb Hct MCV MCH MCHC RDW [place] % (Auto) Eos % (Auto) [place] # Eos # Seg Neutrophils % Seg Neuts % (Manual) Lymphocytes % (Manual) Monocytes % (Manual) Eosinophils % (Manual) Basophils % (Manual) Seg Neutrophils # Man Lymphocytes # (Manual) Monocytes # (Manual) Eosinophils # (Manual) Basophils # (Manual) PT 29.3 H INR 2.57 H D-Dimer Heparin Anti-Xa Level POC ABG pH POC ABG pCO2 POC ABG pO2 VBG pH Potassium Chloride Carbon Dioxide BUN Glucose POC Glucose 117 H 144 H Lactic Acid Calcium Magnesium NT-Pro-B Natriuret Pep Total Protein Albumin TSH 08/24/17 08/24/17 08/24/17 12:57 16:23 21:13 WBC RBC Hgb Hct MCV MCH MCHC RDW [place] % (Auto) Eos % (Auto) [place] # Eos # Seg Neutrophils % Seg Neuts % (Manual) Lymphocytes % (Manual) Monocytes % (Manual) Eosinophils % (Manual) Basophils % (Manual) Seg Neutrophils # Man Lymphocytes # (Manual) Monocytes # (Manual) Eosinophils # (Manual) Basophils # (Manual) PT INR D-Dimer Heparin Anti-Xa Level POC ABG pH POC ABG pCO2 POC ABG pO2 VBG pH Potassium Chloride Carbon Dioxide BUN Glucose POC Glucose 113 H 145 H 209 H Lactic Acid Calcium Magnesium NT-Pro-B Natriuret Pep Total Protein Albumin TSH 08/25/17 08/25/17 08/25/17 05:00 08:07 12:00 WBC RBC Hgb Hct MCV MCH MCHC RDW [place] % (Auto) Eos % (Auto) [place] # Eos # Seg Neutrophils % Seg Neuts % (Manual) Lymphocytes % (Manual) Monocytes % (Manual) Eosinophils % (Manual) Basophils % (Manual) Seg Neutrophils # Man Lymphocytes # (Manual) Monocytes # (Manual) Eosinophils # (Manual) Basophils # (Manual) PT 29.1 H INR 2.55 H D-Dimer Heparin Anti-Xa Level POC ABG pH POC ABG pCO2 POC ABG pO2 VBG pH Potassium Chloride Carbon Dioxide BUN Glucose POC Glucose 129 H 125 H Lactic Acid Calcium Magnesium NT-Pro-B Natriuret Pep Total Protein Albumin TSH 08/25/17 08/25/17 08/26/17 17:04 22:11 06:15 WBC RBC Hgb Hct MCV MCH MCHC RDW [place] % (Auto) Eos % (Auto) [place] # Eos # Seg Neutrophils % Seg Neuts % (Manual) Lymphocytes % (Manual) Monocytes % (Manual) Eosinophils % (Manual) Basophils % (Manual) Seg Neutrophils # Man Lymphocytes # (Manual) Monocytes # (Manual) Eosinophils # (Manual) Basophils # (Manual) PT 29.1 H INR 2.55 H D-Dimer Heparin Anti-Xa Level POC ABG pH POC ABG pCO2 POC ABG pO2 VBG pH Potassium Chloride Carbon Dioxide BUN Glucose POC Glucose 124 H 130 H Lactic Acid Calcium Magnesium NT-Pro-B Natriuret Pep Total Protein Albumin TSH 08/26/17 08/26/17 08/26/17 09:04 12:13 21:32 WBC RBC Hgb Hct MCV MCH MCHC RDW [place] % (Auto) Eos % (Auto) [place] # Eos # Seg Neutrophils % Seg Neuts % (Manual) Lymphocytes % (Manual) Monocytes % (Manual) Eosinophils % (Manual) Basophils % (Manual) Seg Neutrophils # Man Lymphocytes # (Manual) Monocytes # (Manual) Eosinophils # (Manual) Basophils # (Manual) PT INR D-Dimer Heparin Anti-Xa Level POC ABG pH POC ABG pCO2 POC ABG pO2 VBG pH Potassium Chloride Carbon Dioxide BUN Glucose POC Glucose 137 H 201 H 185 H Lactic Acid Calcium Magnesium NT-Pro-B Natriuret Pep Total Protein Albumin TSH 08/27/17 08/27/17 08/27/17 04:00 04:00 05:00 WBC RBC 5.15 H Hgb Hct MCV 74 L MCH 23 L MCHC 31 L RDW 20.4 H [place] % (Auto) 11.0 H Eos % (Auto) 5.2 H [place] # 1.2 H Eos # 0.6 H Seg Neutrophils % Seg Neuts % (Manual) Lymphocytes % (Manual) Monocytes % (Manual) Eosinophils % (Manual) Basophils % (Manual) Seg Neutrophils # Man Lymphocytes # (Manual) Monocytes # (Manual) Eosinophils # (Manual) Basophils # (Manual) PT 29.0 H INR 2.53 H D-Dimer Heparin Anti-Xa Level POC ABG pH POC ABG pCO2 POC ABG pO2 VBG pH Potassium Chloride 90.7 L Carbon Dioxide 35 H BUN Glucose 147 H POC Glucose Lactic Acid Calcium Magnesium NT-Pro-B Natriuret Pep Total Protein Albumin TSH 08/27/17 08/27/17 08/27/17 11:44 16:32 21:13 WBC RBC Hgb Hct MCV MCH MCHC RDW [place] % (Auto) Eos % (Auto) [place] # Eos # Seg Neutrophils % Seg Neuts % (Manual) Lymphocytes % (Manual) Monocytes % (Manual) Eosinophils % (Manual) Basophils % (Manual) Seg Neutrophils # Man Lymphocytes # (Manual) Monocytes # (Manual) Eosinophils # (Manual) Basophils # (Manual) PT INR D-Dimer Heparin Anti-Xa Level POC ABG pH POC ABG pCO2 POC ABG pO2 VBG pH Potassium Chloride Carbon Dioxide BUN Glucose POC Glucose 131 H 131 H 197 H Lactic Acid Calcium Magnesium NT-Pro-B Natriuret Pep Total Protein Albumin TSH 08/28/17 08/28/17 08/28/17 06:38 08:11 11:36 WBC RBC Hgb Hct MCV MCH MCHC RDW [place] % (Auto) Eos % (Auto) [place] # Eos # Seg Neutrophils % Seg Neuts % (Manual) Lymphocytes % (Manual) Monocytes % (Manual) Eosinophils % (Manual) Basophils % (Manual) Seg Neutrophils # Man Lymphocytes # (Manual) Monocytes # (Manual) Eosinophils # (Manual) Basophils # (Manual) PT 26.5 H INR 2.27 H D-Dimer Heparin Anti-Xa Level POC ABG pH POC ABG pCO2 POC ABG pO2 VBG pH Potassium Chloride Carbon Dioxide BUN Glucose POC Glucose 142 H 215 H Lactic Acid Calcium Magnesium NT-Pro-B Natriuret Pep Total Protein Albumin TSH 08/28/17 08/28/17 08/29/17 16:33 21:27 05:47 WBC RBC Hgb Hct MCV MCH MCHC RDW [place] % (Auto) Eos % (Auto) [place] # Eos # Seg Neutrophils % Seg Neuts % (Manual) Lymphocytes % (Manual) Monocytes % (Manual) Eosinophils % (Manual) Basophils % (Manual) Seg Neutrophils # Man Lymphocytes # (Manual) Monocytes # (Manual) Eosinophils # (Manual) Basophils # (Manual) PT 28.9 H INR 2.52 H D-Dimer Heparin Anti-Xa Level POC ABG pH POC ABG pCO2 POC ABG pO2 VBG pH Potassium Chloride Carbon Dioxide BUN Glucose POC Glucose 140 H 201 H Lactic Acid Calcium Magnesium NT-Pro-B Natriuret Pep Total Protein Albumin TSH 08/29/17 08/29/17 08/29/17 08:15 11:30 16:27 WBC RBC Hgb Hct MCV MCH MCHC RDW [place] % (Auto) Eos % (Auto) [place] # Eos # Seg Neutrophils % Seg Neuts % (Manual) Lymphocytes % (Manual) Monocytes % (Manual) Eosinophils % (Manual) Basophils % (Manual) Seg Neutrophils # Man Lymphocytes # (Manual) Monocytes # (Manual) Eosinophils # (Manual) Basophils # (Manual) PT INR D-Dimer Heparin Anti-Xa Level POC ABG pH POC ABG pCO2 POC ABG pO2 VBG pH Potassium Chloride Carbon Dioxide BUN Glucose POC Glucose 168 H 171 H 174 H Lactic Acid Calcium Magnesium NT-Pro-B Natriuret Pep Total Protein Albumin TSH 08/29/17 08/30/17 08/30/17 21:16 05:20 08:06 WBC RBC Hgb Hct MCV MCH MCHC RDW [place] % (Auto) Eos % (Auto) [place] # Eos # Seg Neutrophils % Seg Neuts % (Manual) Lymphocytes % (Manual) Monocytes % (Manual) Eosinophils % (Manual) Basophils % (Manual) Seg Neutrophils # Man Lymphocytes # (Manual) Monocytes # (Manual) Eosinophils # (Manual) Basophils # (Manual) PT INR D-Dimer Heparin Anti-Xa Level POC ABG pH POC ABG pCO2 POC ABG pO2 VBG pH Potassium Chloride Carbon Dioxide BUN Glucose POC Glucose 176 H 146 H 118 H Lactic Acid Calcium Magnesium NT-Pro-B Natriuret Pep Total Protein Albumin TSH 08/30/17 08/30/17 12:20 Unknown WBC RBC Hgb Hct MCV MCH MCHC RDW [place] % (Auto) Eos % (Auto) [place] # Eos # Seg Neutrophils % Seg Neuts % (Manual) Lymphocytes % (Manual) Monocytes % (Manual) Eosinophils % (Manual) Basophils % (Manual) Seg Neutrophils # Man Lymphocytes # (Manual) Monocytes # (Manual) Eosinophils # (Manual) Basophils # (Manual) PT 32.1 H INR 2.87 H D-Dimer Heparin Anti-Xa Level POC ABG pH POC ABG pCO2 POC ABG pO2 VBG pH Potassium Chloride Carbon Dioxide BUN Glucose POC Glucose 150 H Lactic Acid Calcium Magnesium NT-Pro-B Natriuret Pep Total Protein Albumin TSH Chest x-ray: report reviewed, image reviewed
[2017-08-30] MEDS: COUMADIN PO SCH (18:18)
--- NOTE | 2017-08-30 19:46 | Progress Note ---
Assessment and Plan Assessment and plan: --Acute on chronic hypoxic, hypercapnic respiratory failure on high flow oxygen, wean as tolerated, patient has home o2and NIV set up. --obstructive sleep apnea/obesity hypoventilation syndrome/morbid obesity Continue, BiPAP at night, out patient sleep study. --Morbid obesity; BMI of 84;Counseling done advised exercise as tolerated and weight reduction patient would benefit by bariatric surgical evaluation when medically stable --Chronic massive lymphedema; Continue wound care and lymphedema care inpatient and outpatient post discharge --Acute systolic congestive heart failure ; EF 40-45% with severe pulmonary hypertension Continue diuretics Lasix 40 every 8 hours, input output monitoring, fluid restriction --Severe pulmonary hypertension on echocardiogram; diuretics, fluid restriction , --Left lower lobe pneumonia/atelectasis/community-acquired; resolved, completed treatment --Empiric anticoagulation on Coumadin, therapeutic INR, target INR 2-3 --Discharge planning. Case management, possible home with home health when patient is stable --Physical therapy occupational therapy as tolerated Plan of care reviewed with the patient and his nurse as well as case management Disposition; discharged home when patient can be weaned from high flow oxygen to 3-5 L nasal cannula O2 History Interval history: Patient seen and examined in the emergency room medical records reviewed Patient feels better, anxious to go home However patient is requiring high flow oxygen Tolerating physical therapy Denies chest pain or shortness of breath Vital signs reviewed Hospitalist Physical - Constitutional Vitals: Temp Pulse Resp BP Pulse Ox 98.2 F 78 22 148/82 97 08/30/17 17:50 08/30/17 17:50 08/30/17 17:50 08/30/17 17:50 08/30/17 17:50 General appearance: Present: no acute distress, well-nourished, obese (morbidly obese) - EENT Eyes: Present: PERRL, EOM intact - Neck Neck: Present: supple, normal ROM - Respiratory Respiratory effort: normal Respiratory: bilateral: diminished, rhonchi, negative: rales, wheezing - Cardiovascular Rhythm: regular Heart Sounds: Present: S1 & S2 - Extremities Extremities: no ischemia, abnormal (chronic massive lymphedema) Extremity abnormal: edema - Abdominal General gastrointestinal: soft, non-tender, non-distended, normal bowel sounds - Integumentary Integumentary: Present: clear, warm - Psychiatric Psychiatric: appropriate mood/affect, cooperative - Neurologic Neurologic: CNII-XII intact, moves all extremities Results - Labs CBC & Chem 7: 08/27/17 04:00 08/27/17 04:00 Labs: Laboratory Last Values WBC 10.7 K/mm3 (4.5-11.0) 08/27/17 04:00 RBC 5.15 M/mm3 (3.65-5.03) H 08/27/17 04:00 Hgb 12.0 gm/dl (11.8-15.2) 08/27/17 04:00 Hct 38.2 % (35.5-45.6) 08/27/17 04:00 MCV 74 fl (84-94) L 08/27/17 04:00 MCH 23 pg (28-32) L 08/27/17 04:00 MCHC 31 % (32-34) L 08/27/17 04:00 RDW 20.4 % (13.2-15.2) H 08/27/17 04:00 Plt Count 234 K/mm3 (140-440) 08/27/17 04:00 Lymph % (Auto) 25.2 % (13.4-35.0) 08/27/17 04:00 [place] % (Auto) 11.0 % (0.0-7.3) H 08/27/17 04:00 Eos % (Auto) 5.2 % (0.0-4.3) H 08/27/17 04:00 Baso % (Auto) 1.2 % (0.0-1.8) 08/27/17 04:00 Lymph # 2.7 K/mm3 (1.2-5.4) 08/27/17 04:00 [place] # 1.2 K/mm3 (0.0-0.8) H 08/27/17 04:00 Eos # 0.6 K/mm3 (0.0-0.4) H 08/27/17 04:00 Baso # 0.1 K/mm3 (0.0-0.1) 08/27/17 04:00 Add Manual Diff Complete 08/09/17 10:57 Total Counted 100 08/09/17 10:57 Seg Neutrophils % 57.4 % (40.0-70.0) 08/27/17 04:00 Seg Neuts % (Manual) 64.0 % (40.0-70.0) 08/09/17 10:57 Band Neutrophils % 4.0 % 08/09/17 10:57 Lymphocytes % (Manual) 15.0 % (13.4-35.0) 08/09/17 10:57 Reactive Lymphs % (Man) 3.0 % 08/09/17 10:57 Monocytes % (Manual) 9.0 % (0.0-7.3) H 08/09/17 10:57 Eosinophils % (Manual) 5.0 % (0.0-4.3) H 08/09/17 10:57 Basophils % (Manual) 0 % (0.0-1.8) 08/09/17 10:57 Metamyelocytes % 0 % 08/09/17 10:57 Myelocytes % 0 % 08/09/17 10:57 Promyelocytes % 0 % 08/09/17 10:57 Blast Cells % 0 % 08/09/17 10:57 Nucleated RBC % Not Reportable 08/09/17 10:57 Seg Neutrophils # 6.2 K/mm3 (1.8-7.7) 08/27/17 04:00 Seg Neutrophils # Man 9.3 K/mm3 (1.8-7.7) H 08/09/17 10:57 Band Neutrophils # 0.6 K/mm3 08/09/17 10:57 Lymphocytes # (Manual) 2.2 K/mm3 (1.2-5.4) 08/09/17 10:57 Abs React Lymphs (Man) 0.4 K/mm3 08/09/17 10:57 Monocytes # (Manual) 1.3 K/mm3 (0.0-0.8) H 08/09/17 10:57 Eosinophils # (Manual) 0.7 K/mm3 (0.0-0.4) H 08/09/17 10:57 Basophils # (Manual) 0.0 K/mm3 (0.0-0.1) 08/09/17 10:57 Metamyelocytes # 0.0 K/mm3 08/09/17 10:57 Myelocytes # 0.0 K/mm3 08/09/17 10:57 Promyelocytes # 0.0 K/mm3 08/09/17 10:57 Blast Cells # 0.0 K/mm3 08/09/17 10:57 WBC Morphology Not Reportable 08/09/17 10:57 Hypersegmented Neuts Not Reportable 08/09/17 10:57 Hyposegmented Neuts Not Reportable 08/09/17 10:57 Hypogranular Neuts Not Reportable 08/09/17 10:57 Smudge Cells Not Reportable 08/09/17 10:57 Toxic Granulation Not Reportable 08/09/17 10:57 Toxic Vacuolation Not Reportable 08/09/17 10:57 Dohle Bodies Not Reportable 08/09/17 10:57 Pelger-Huet Anomaly Not Reportable 08/09/17 10:57 Noa Rods Not Reportable 08/09/17 10:57 Platelet Estimate Consistent w auto 08/09/17 10:57 Clumped Platelets Not Reportable 08/09/17 10:57 Plt Clumps, EDTA Not Reportable 08/09/17 10:57 Large Platelets Not Reportable 08/09/17 10:57 Giant Platelets Few 08/09/17 10:57 Platelet Satelliting Not Reportable 08/09/17 10:57 Plt Morphology Comment Not Reportable 08/09/17 10:57 RBC Morphology Not Reportable 08/09/17 10:57 Dimorphic RBCs Not Reportable 08/09/17 10:57 Polychromasia Not Reportable 08/09/17 10:57 Hypochromasia 1+ 08/09/17 10:57 Poikilocytosis 1+ 08/09/17 10:57 Anisocytosis 1+ 08/09/17 10:57 Microcytosis 1+ 08/09/17 10:57 Macrocytosis Not Reportable 08/09/17 10:57 Spherocytes Not Reportable 08/09/17 10:57 Pappenheimer Bodies Not Reportable 08/09/17 10:57 Sickle Cells Not Reportable 08/09/17 10:57 Target Cells Not Reportable 08/09/17 10:57 Tear Drop Cells Not Reportable 08/09/17 10:57 Ovalocytes Few 08/09/17 10:57 Stomatocytes 1+ 08/09/17 10:57 Helmet Cells Not Reportable 08/09/17 10:57 Harley-[place] Bodies Not Reportable 08/09/17 10:57 [place] Rings Not Reportable 08/09/17 10:57 Mignon Cells Not Reportable 08/09/17 10:57 Bite Cells Not Reportable 08/09/17 10:57 Crenated Cell Not Reportable 08/09/17 10:57 Elliptocytes Not Reportable 08/09/17 10:57 Acanthocytes (Spur) Not Reportable 08/09/17 10:57 Rouleaux Not Reportable 08/09/17 10:57 Hemoglobin C Crystals Not Reportable 08/09/17 10:57 Schistocytes Not Reportable 08/09/17 10:57 Malaria parasites Not Reportable 08/09/17 10:57 Cuco Bodies Not Reportable 08/09/17 10:57 Hem Pathologist Commnt No 08/09/17 10:57 PT 32.1 Sec. (12.2-14.9) H 08/30/17 Unknown INR 2.87 (0.87-1.13) H 08/30/17 Unknown APTT 29.0 Sec. (24.2-36.6) 08/14/17 10:36 D-Dimer 1693.79 ng/mlDDU (0-234) H 08/17/17 21:48 Heparin Anti-Xa Level 0.43 U.I./ml (0.3-0.7) 08/17/17 05:58 POC ABG pH 7.471 (7.35-7.45) H 08/15/17 04:20 POC ABG pCO2 53.8 (35-45) H 08/15/17 04:20 POC ABG pO2 81 (80-105) 08/15/17 04:20 POC ABG HCO3 39.3 08/15/17 04:20 POC ABG Total CO2 41 08/15/17 04:20 POC ABG O2 Sat 96 08/15/17 04:20 POC ABG Base Excess 16 08/15/17 04:20 VBG pH 7.463 (7.320-7.420) H 08/07/17 16:58 FiO2 100 % 08/15/17 04:20 Sodium 141 mmol/L (137-145) 08/27/17 04:00 Potassium 3.6 mmol/L (3.6-5.0) 08/27/17 04:00 Chloride 90.7 mmol/L (98-107) L 08/27/17 04:00 Carbon Dioxide 35 mmol/L (22-30) H 08/27/17 04:00 Anion Gap 19 mmol/L 08/27/17 04:00 BUN 13 mg/dL (9-20) 08/27/17 04:00 Creatinine 0.8 mg/dL (0.8-1.5) 08/27/17 04:00 Estimated GFR > 60 ml/min 08/27/17 04:00 BUN/Creatinine Ratio 16 % 08/27/17 04:00 Glucose 147 mg/dL (75-100) H 08/27/17 04:00 POC Glucose 122 (70-105) H 08/30/17 17:05 Lactic Acid 0.90 mmol/L (0.7-2.0) 08/08/17 06:01 Calcium 9.1 mg/dL (8.4-10.2) 08/27/17 04:00 Magnesium 2.00 mg/dL (1.7-2.3) 08/27/17 04:00 Total Bilirubin 0.70 mg/dL (0.1-1.2) 08/16/17 14:04 Direct Bilirubin 0.2 mg/dL (0-0.2) 08/11/17 07:12 Indirect Bilirubin 0.3 mg/dL 08/11/17 07:12 AST 11 units/L (5-40) 08/16/17 14:04 ALT 10 units/L (7-56) 08/16/17 14:04 Alkaline Phosphatase 68 units/L (35-129) 08/16/17 14:04 NT-Pro-B Natriuret Pep 6070 pg/mL (0-450) H 08/14/17 10:36 Total Protein 5.8 g/dL (6.3-8.2) L 08/16/17 14:04 Albumin 3.0 g/dL (3.9-5) L 08/16/17 14:04 Albumin/Globulin Ratio 1.1 % 08/16/17 14:04 TSH 4.780 mlU/mL (0.270-4.200) H 08/11/17 07:12 Free T4 0.86 ng/dL (0.76-1.46) 08/11/17 07:12
[2017-08-31] MEDS: LASIX IV SCH ×3 (02:41→19:05)
[2017-08-31 05:59] LABS: Mean Corpuscular HGB Conc 31 % (32-34); Mean Corpuscular Volume 75 fl (84-94); Platelet Count 212 K/mm3 (140-440); Red Blood Count 5.19 M/mm3 (3.65-5.03)
[2017-08-31 06:01] LABS: Hematocrit 39.2 % (35.5-45.6); Mean Corpuscular Hemoglobin 23 pg (28-32)
[2017-08-31 06:09] LABS: INR 3.19 (0.87-1.13)
[2017-08-31 06:16] LABS: BUN/Creatinine Ratio 12; Blood Urea Nitrogen 11 mg/dL (9-20); Calcium 9.1 mg/dL (8.4-10.2); Hemolysis Index 8
[2017-08-31 06:58] LABS: Anisocytosis 1+; Band Neutrophils # (Manual) 1.2 K/mm3; Basophils % (Manual) 0 % (0.0-1.8); Total Cells Counted 100
[2017-08-31 06:59] LABS: Platelet Estimate Consistent w Auto
--- NOTE | 2017-08-31 09:23 | Progress Note ---
Assessment and Plan Assessment and plan: --Acute on chronic hypoxic, hypercapnic respiratory failure on high flow oxygen, wean as tolerated, patient has home o2and NIV set up. --obstructive sleep apnea/obesity hypoventilation syndrome/morbid obesity Continue, BiPAP at night, out patient sleep study. --Morbid obesity; BMI of 84;Counseling done advised exercise as tolerated and weight reduction patient would benefit by bariatric surgical evaluation when medically stable --Chronic massive lymphedema; Continue wound care and lymphedema care inpatient and outpatient post discharge --Acute systolic congestive heart failure ; EF 40-45% with severe pulmonary hypertension Continue diuretics Lasix 40 every 8 hours, input output monitoring, fluid restriction --Severe pulmonary hypertension on echocardiogram; diuretics, fluid restriction , --Left lower lobe pneumonia/atelectasis/community-acquired; resolved, completed treatment --Empiric anticoagulation on Coumadin, therapeutic INR, target INR 2-3 --Discharge planning. Case management, possible home with home health when patient is stable --Physical therapy occupational therapy as tolerated Plan of care reviewed with the patient and his nurse as well as case management Disposition; discharged home when patient can be weaned from high flow oxygen to 3-5 L nasal cannula O2. Anticipate discharge in a.m. if continues to improve History Interval history: Patient seen and examined on acute distress, on nasal cannula. Hospitalist Physical - Physical exam Narrative exam: General appearance: Present: no acute distress, well-nourished, obese (morbidly obese) - EENT Eyes: Present: PERRL, EOM intact - Neck Neck: Present: supple, normal ROM - Respiratory Respiratory effort: normal Respiratory: bilateral: diminished, rhonchi, negative: rales, wheezing - Cardiovascular Rhythm: regular Heart Sounds: Present: S1 & S2 - Extremities Extremities: no ischemia, abnormal (chronic massive lymphedema) Extremity abnormal: edema - Abdominal General gastrointestinal: soft, non-tender, non-distended, normal bowel sounds - Integumentary Integumentary: Present: clear, warm - Psychiatric Psychiatric: appropriate mood/affect, cooperative - Neurologic Neurologic: CNII-XII intact, moves all extremities - Constitutional Vitals: Temp Pulse Resp BP Pulse Ox 97.9 F 65 20 120/72 91 08/31/17 09:05 08/31/17 09:05 08/31/17 04:01 08/31/17 09:05 08/31/17 04:01 General appearance: Present: no acute distress, well-nourished, obese (morbidly obese) Results - Labs CBC & Chem 7: 08/31/17 05:40 08/31/17 05:40 Labs: Laboratory Last Values WBC 9.3 K/mm3 (4.5-11.0) 08/31/17 05:40 RBC 5.19 M/mm3 (3.65-5.03) H 08/31/17 05:40 Hgb 12.0 gm/dl (11.8-15.2) 08/31/17 05:40 Hct 39.2 % (35.5-45.6) 08/31/17 05:40 MCV 75 fl (84-94) L 08/31/17 05:40 MCH 23 pg (28-32) L 08/31/17 05:40 MCHC 31 % (32-34) L 08/31/17 05:40 RDW 21.0 % (13.2-15.2) H 08/31/17 05:40 Plt Count 212 K/mm3 (140-440) 08/31/17 05:40 Lymph % (Auto) 25.2 % (13.4-35.0) 08/27/17 04:00 [place] % (Auto) 11.0 % (0.0-7.3) H 08/27/17 04:00 Eos % (Auto) 5.2 % (0.0-4.3) H 08/27/17 04:00 Baso % (Auto) 1.2 % (0.0-1.8) 08/27/17 04:00 Lymph # 2.7 K/mm3 (1.2-5.4) 08/27/17 04:00 [place] # 1.2 K/mm3 (0.0-0.8) H 08/27/17 04:00 Eos # 0.6 K/mm3 (0.0-0.4) H 08/27/17 04:00 Baso # 0.1 K/mm3 (0.0-0.1) 08/27/17 04:00 Add Manual Diff Complete 08/31/17 05:40 Total Counted 100 08/31/17 05:40 Seg Neutrophils % 57.4 % (40.0-70.0) 08/27/17 04:00 Seg Neuts % (Manual) 57.0 % (40.0-70.0) 08/31/17 05:40 Band Neutrophils % 13.0 % 08/31/17 05:40 Lymphocytes % (Manual) 23.0 % (13.4-35.0) 08/31/17 05:40 Reactive Lymphs % (Man) 0 % 08/31/17 05:40 Monocytes % (Manual) 4.0 % (0.0-7.3) 08/31/17 05:40 Eosinophils % (Manual) 3.0 % (0.0-4.3) 08/31/17 05:40 Basophils % (Manual) 0 % (0.0-1.8) 08/31/17 05:40 Metamyelocytes % 0 % 08/31/17 05:40 Myelocytes % 0 % 08/31/17 05:40 Promyelocytes % 0 % 08/31/17 05:40 Blast Cells % 0 % 08/31/17 05:40 Nucleated RBC % Not Reportable 08/31/17 05:40 Seg Neutrophils # 6.2 K/mm3 (1.8-7.7) 08/27/17 04:00 Seg Neutrophils # Man 5.3 K/mm3 (1.8-7.7) 08/31/17 05:40 Band Neutrophils # 1.2 K/mm3 08/31/17 05:40 Lymphocytes # (Manual) 2.1 K/mm3 (1.2-5.4) 08/31/17 05:40 Abs React Lymphs (Man) 0.0 K/mm3 08/31/17 05:40 Monocytes # (Manual) 0.4 K/mm3 (0.0-0.8) 08/31/17 05:40 Eosinophils # (Manual) 0.3 K/mm3 (0.0-0.4) 08/31/17 05:40 Basophils # (Manual) 0.0 K/mm3 (0.0-0.1) 08/31/17 05:40 Metamyelocytes # 0.0 K/mm3 08/31/17 05:40 Myelocytes # 0.0 K/mm3 08/31/17 05:40 Promyelocytes # 0.0 K/mm3 08/31/17 05:40 Blast Cells # 0.0 K/mm3 08/31/17 05:40 WBC Morphology Not Reportable 08/31/17 05:40 Hypersegmented Neuts Not Reportable 08/31/17 05:40 Hyposegmented Neuts Not Reportable 08/31/17 05:40 Hypogranular Neuts Not Reportable 08/31/17 05:40 Smudge Cells Not Reportable 08/31/17 05:40 Toxic Granulation Not Reportable 08/31/17 05:40 Toxic Vacuolation Not Reportable 08/31/17 05:40 Dohle Bodies Not Reportable 08/31/17 05:40 Pelger-Huet Anomaly Not Reportable 08/31/17 05:40 Noa Rods Not Reportable 08/31/17 05:40 Platelet Estimate Consistent w auto 08/31/17 05:40 Clumped Platelets Not Reportable 08/31/17 05:40 Plt Clumps, EDTA Not Reportable 08/31/17 05:40 Large Platelets Not Reportable 08/31/17 05:40 Giant Platelets Not Reportable 08/31/17 05:40 Platelet Satelliting Not Reportable 08/31/17 05:40 Plt Morphology Comment Not Reportable 08/31/17 05:40 RBC Morphology Not Reportable 08/31/17 05:40 Dimorphic RBCs Not Reportable 08/31/17 05:40 Polychromasia Not Reportable 08/31/17 05:40 Hypochromasia Not Reportable 08/31/17 05:40 Poikilocytosis Not Reportable 08/31/17 05:40 Anisocytosis 1+ 08/31/17 05:40 Microcytosis Not Reportable 08/31/17 05:40 Macrocytosis Not Reportable 08/31/17 05:40 Spherocytes Not Reportable 08/31/17 05:40 Pappenheimer Bodies Not Reportable 08/31/17 05:40 Sickle Cells Not Reportable 08/31/17 05:40 Target Cells Not Reportable 08/31/17 05:40 Tear Drop Cells Not Reportable 08/31/17 05:40 Ovalocytes Not Reportable 08/31/17 05:40 Stomatocytes 1+ 08/09/17 10:57 Helmet Cells Not Reportable 08/31/17 05:40 [place] Bodies Not Reportable 08/31/17 05:40 [place] Rings Not Reportable 08/31/17 05:40 [place]ignon Cells Not Reportable 08/31/17 05:40 Bite Cells Not Reportable 08/31/17 05:40 Crenated Cell Not Reportable 08/31/17 05:40 Elliptocytes Few 08/31/17 05:40 Acanthocytes (Spur) Not Reportable 08/31/17 05:40 Rouleaux Not Reportable 08/31/17 05:40 Hemoglobin C Crystals Not Reportable 08/31/17 05:40 Schistocytes Not Reportable 08/31/17 05:40 Malaria parasites Not Reportable 08/31/17 05:40 Cuco Bodies Not Reportable 08/31/17 05:40 Hem Pathologist Commnt No 08/31/17 05:40 PT 34.9 Sec. (12.2-14.9) H 08/31/17 05:40 INR 3.19 (0.87-1.13) H 08/31/17 05:40 APTT 29.0 Sec. (24.2-36.6) 08/14/17 10:36 D-Dimer 1693.79 ng/mlDDU (0-234) H 08/17/17 21:48 Heparin Anti-Xa Level 0.43 U.I./ml (0.3-0.7) 08/17/17 05:58 POC ABG pH 7.471 (7.35-7.45) H 08/15/17 04:20 POC ABG pCO2 53.8 (35-45) H 08/15/17 04:20 POC ABG pO2 81 (80-105) 08/15/17 04:20 POC ABG HCO3 39.3 08/15/17 04:20 POC ABG Total CO2 41 08/15/17 04:20 POC ABG O2 Sat 96 08/15/17 04:20 POC ABG Base Excess 16 08/15/17 04:20 VBG pH 7.463 (7.320-7.420) H 08/07/17 16:58 FiO2 100 % 08/15/17 04:20 Sodium 142 mmol/L (137-145) 08/31/17 05:40 Potassium 3.6 mmol/L (3.6-5.0) 08/31/17 05:40 Chloride 92.9 mmol/L (98-107) L 08/31/17 05:40 Carbon Dioxide 32 mmol/L (22-30) H 08/31/17 05:40 Anion Gap 21 mmol/L 08/31/17 05:40 BUN 11 mg/dL (9-20) 08/31/17 05:40 Creatinine 0.9 mg/dL (0.8-1.5) 08/31/17 05:40 Estimated GFR > 60 ml/min 08/31/17 05:40 BUN/Creatinine Ratio 12 % 08/31/17 05:40 Glucose 152 mg/dL (75-100) H 08/31/17 05:40 POC Glucose 109 (70-105) H 08/31/17 08:24 Lactic Acid 0.90 mmol/L (0.7-2.0) 08/08/17 06:01 Calcium 9.1 mg/dL (8.4-10.2) 08/31/17 05:40 Magnesium 2.00 mg/dL (1.7-2.3) 08/27/17 04:00 Total Bilirubin 0.70 mg/dL (0.1-1.2) 08/16/17 14:04 Direct Bilirubin 0.2 mg/dL (0-0.2) 08/11/17 07:12 Indirect Bilirubin 0.3 mg/dL 08/11/17 07:12 AST 11 units/L (5-40) 08/16/17 14:04 ALT 10 units/L (7-56) 08/16/17 14:04 Alkaline Phosphatase 68 units/L (35-129) 08/16/17 14:04 NT-Pro-B Natriuret Pep 6070 pg/mL (0-450) H 08/14/17 10:36 Total Protein 5.8 g/dL (6.3-8.2) L 08/16/17 14:04 Albumin 3.0 g/dL (3.9-5) L 08/16/17 14:04 Albumin/Globulin Ratio 1.1 % 08/16/17 14:04 TSH 4.780 mlU/mL (0.270-4.200) H 08/11/17 07:12 Free T4 0.86 ng/dL (0.76-1.46) 08/11/17 07:12
[2017-08-31] MEDS: NOVOLOG SUB-Q SCH ×3 (09:39→18:00)
[2017-08-31] MEDS: K-DUR PO SCH (09:40)
--- NOTE | 2017-08-31 16:44 | Progress Note ---
Assessment and Plan Imp: 1. RUSSEL 2. OHS 3. Morbid obesity 4. A/C respiratory failure, hypoxia and hypercapnea 5. NICMP 6. A/C systolic CHF 7. Pulm HTN 2/2 above Rec: 1. Diuresis 2. BIPAP QHS and prn 3. Agree w/ home NIV and O2 -> arranged already 4. Weight loss 5. Goal sats 88-94% 6. Incentive anthony 10x per hour 7. Can go home pulm-diaz Plan of care reviewed with patient, he understands/agrees Subjective Date of service: 08/31/17 Principal diagnosis: heart failure, hypercapnic respiratory failure, severe morbid obesity Interval history: No events. On 4L NC now doing well. SOB better. No new complaints. Active Medications Acetaminophen (Tylenol) 650 mg PO Q4H PRN PRN Reason: /Fever >100.5/ARENAS Last Admin: 08/10/17 09:28 Dose: 650 mg Albuterol (Proventil) 2.5 mg IH Q4HRT PRN PRN Reason: Shortness Of Breath Last Admin: 08/19/17 20:22 Dose: 2.5 mg Bisacodyl (Dulcolax) 10 mg VA QDAY PRN PRN Reason: Constipation unrelieved by MOM Furosemide (Lasix) 40 mg IV Q8H [facility] Last Admin: 08/31/17 13:43 Dose: 40 mg Guaifenesin (Guaifenesin Dm Syrup) 10 ml PO Q6H PRN PRN Reason: Cough Last Admin: 08/23/17 22:33 Dose: 10 ml Ibuprofen (Motrin) 600 mg PO Q8H PRN PRN Reason: Pain, Mild (1-3) Last Admin: 08/17/17 17:30 Dose: 600 mg Insulin Aspart (Novolog) 0 units SUB-Q ACHS [facility] PRN Reason: Protocol Last Admin: 08/31/17 13:42 Dose: 1 units Magnesium Hydroxide (Milk Of Magnesia) 30 ml PO Q4H PRN PRN Reason: Constipation Ondansetron HCl (Zofran) 4 mg IV Q8H PRN PRN Reason: N/V unrelieved by Reglan Last Admin: 08/07/17 23:02 Dose: 4 mg Potassium Chloride (K-Dur) 20 meq PO QDAY [facility] Last Admin: 08/31/17 09:40 Dose: 20 meq Warfarin Sodium (Coumadin Pharmacy To Dose) 1 each PO PKCONSULT MICHELLE Warfarin Sodium (Coumadin) 5 mg PO DAILY@1700 MICHELLE Warfarin Sodium (Coumadin) 1 mg PO DAILY@1700 [facility] Objective Vital Signs - 12hr 08/31/17 08/31/17 09:05 11:47 Temperature 97.9 F Pulse Rate 65 Blood Pressure 120/72 [Left] O2 Sat by Pulse 97 Oximetry Constitutional: no acute distress, alert Eyes: non-icteric ENT: oropharynx moist Neck: other (extremely large in circumference) Effort: normal Ascultation: Bilateral: clear Percussion: Bilateral: not dull Cardiovascular: regular rate and rhythm (no mrg) Gastrointestinal: normoactive bowel sounds, soft, non-tender, non-distended, other (obese) Integumentary: other (chronic venous stasis changes LEs) Extremities: no cyanosis, edema (lymphedema), other (bilateral lymphedema with chronic changes) Neurologic: normal mental status, non-focal exam, pupils equal and round, CN II- XII normal Psychiatric: mood appropriate, affect normal CBC and BMP: 08/31/17 05:40 08/31/17 05:40 ABG, PT/INR, D-dimer: ABG POC ABG pH 7.471 (7.35-7.45) H 08/15/17 04:20 POC ABG pCO2 53.8 (35-45) H 08/15/17 04:20 POC ABG pO2 81 (80-105) 08/15/17 04:20 POC ABG HCO3 39.3 08/15/17 04:20 POC ABG Total CO2 41 08/15/17 04:20 POC ABG O2 Sat 96 08/15/17 04:20 PT/INR, D-dimer PT 34.9 Sec. (12.2-14.9) H 08/31/17 05:40 INR 3.19 (0.87-1.13) H 08/31/17 05:40 D-Dimer 1693.79 ng/mlDDU (0-234) H 08/17/17 21:48 Abnormal lab findings: Abnormal Labs 08/07/17 08/07/17 08/07/17 16:58 16:58 16:58 WBC 16.1 H RBC 5.44 H Hgb Hct MCV 74 L MCH 22 L MCHC 29 L RDW 21.7 H Cole % (Auto) Eos % (Auto) Cole # Eos # Seg Neutrophils % Seg Neuts % (Manual) 87.0 H Lymphocytes % (Manual) 7.0 L Monocytes % (Manual) Eosinophils % (Manual) Basophils % (Manual) 2.0 H Seg Neutrophils # Man 14.0 H Lymphocytes # (Manual) 1.1 L Monocytes # (Manual) Eosinophils # (Manual) Basophils # (Manual) 0.3 H PT 16.2 H INR 1.23 H D-Dimer Heparin Anti-Xa Level POC ABG pH POC ABG pCO2 POC ABG pO2 VBG pH Potassium Chloride 96.2 L Carbon Dioxide 31 H BUN Glucose POC Glucose Lactic Acid Calcium Magnesium NT-Pro-B Natriuret Pep Total Protein 5.8 L Albumin 3.0 L TSH 08/07/17 08/07/17 08/07/17 16:58 16:58 16:58 WBC RBC Hgb Hct MCV MCH MCHC RDW Cole % (Auto) Eos % (Auto) Cole # Eos # Seg Neutrophils % Seg Neuts % (Manual) Lymphocytes % (Manual) Monocytes % (Manual) Eosinophils % (Manual) Basophils % (Manual) Seg Neutrophils # Man Lymphocytes # (Manual) Monocytes # (Manual) Eosinophils # (Manual) Basophils # (Manual) PT INR D-Dimer Heparin Anti-Xa Level POC ABG pH POC ABG pCO2 POC ABG pO2 VBG pH 7.463 H Potassium Chloride Carbon Dioxide BUN Glucose POC Glucose Lactic Acid 2.10 H* Calcium Magnesium NT-Pro-B Natriuret Pep 2205 H Total Protein Albumin TSH 08/09/17 08/09/17 08/10/17 10:57 13:37 08:04 WBC 14.5 H RBC Hgb 10.8 L 10.8 L Hct 35.1 L MCV 74 L 76 L MCH 23 L 23 L MCHC 31 L 30 L RDW 21.2 H 21.0 H Cole % (Auto) Eos % (Auto) Cole # Eos # Seg Neutrophils % 75.4 H Seg Neuts % (Manual) Lymphocytes % (Manual) Monocytes % (Manual) 9.0 H Eosinophils % (Manual) 5.0 H Basophils % (Manual) Seg Neutrophils # Man 9.3 H Lymphocytes # (Manual) Monocytes # (Manual) 1.3 H Eosinophils # (Manual) 0.7 H Basophils # (Manual) PT INR D-Dimer Heparin Anti-Xa Level POC ABG pH POC ABG pCO2 POC ABG pO2 VBG pH Potassium Chloride 96.9 L Carbon Dioxide 32 H BUN Glucose POC Glucose Lactic Acid Calcium 8.3 L Magnesium NT-Pro-B Natriuret Pep Total Protein Albumin TSH 08/10/17 08/10/17 08/10/17 08:04 08:04 14:50 WBC RBC Hgb Hct MCV MCH MCHC RDW Cole % (Auto) Eos % (Auto) Cole # Eos # Seg Neutrophils % Seg Neuts % (Manual) Lymphocytes % (Manual) Monocytes % (Manual) Eosinophils % (Manual) Basophils % (Manual) Seg Neutrophils # Man Lymphocytes # (Manual) Monocytes # (Manual) Eosinophils # (Manual) Basophils # (Manual) PT INR D-Dimer Heparin Anti-Xa Level POC ABG pH POC ABG pCO2 65.9 H POC ABG pO2 VBG pH Potassium Chloride Carbon Dioxide 32 H BUN Glucose 115 H POC Glucose Lactic Acid Calcium Magnesium NT-Pro-B Natriuret Pep Total Protein Albumin TSH 4.900 H 08/11/17 08/11/17 08/11/17 07:12 07:12 07:12 WBC RBC Hgb 10.3 L Hct MCV 76 L MCH 22 L MCHC 29 L RDW 21.4 H Cole % (Auto) 8.8 H Eos % (Auto) Cole # Eos # Seg Neutrophils % Seg Neuts % (Manual) Lymphocytes % (Manual) Monocytes % (Manual) Eosinophils % (Manual) Basophils % (Manual) Seg Neutrophils # Man Lymphocytes # (Manual) Monocytes # (Manual) Eosinophils # (Manual) Basophils # (Manual) PT INR D-Dimer Heparin Anti-Xa Level POC ABG pH POC ABG pCO2 POC ABG pO2 VBG pH Potassium Chloride Carbon Dioxide 35 H BUN Glucose 105 H POC Glucose Lactic Acid Calcium Magnesium NT-Pro-B Natriuret Pep Total Protein 5.8 L Albumin 3.1 L TSH 4.780 H 08/12/17 08/12/17 08/13/17 04:31 04:31 11:34 WBC RBC Hgb 10.7 L Hct 35.3 L MCV 76 L MCH 23 L MCHC 30 L RDW 21.3 H Cole % (Auto) Eos % (Auto) Cole # Eos # Seg Neutrophils % Seg Neuts % (Manual) Lymphocytes % (Manual) Monocytes % (Manual) Eosinophils % (Manual) Basophils % (Manual) Seg Neutrophils # Man Lymphocytes # (Manual) Monocytes # (Manual) Eosinophils # (Manual) Basophils # (Manual) PT INR D-Dimer Heparin Anti-Xa Level POC ABG pH POC ABG pCO2 61.1 H POC ABG pO2 57 L VBG pH Potassium Chloride 95.8 L Carbon Dioxide 33 H BUN Glucose POC Glucose Lactic Acid Calcium Magnesium NT-Pro-B Natriuret Pep Total Protein 5.8 L Albumin 3.0 L TSH 08/14/17 08/14/17 08/14/17 10:36 10:36 10:36 WBC RBC Hgb 10.7 L Hct MCV MCH MCHC RDW Cole % (Auto) Eos % (Auto) Cole # Eos # Seg Neutrophils % Seg Neuts % (Manual) Lymphocytes % (Manual) Monocytes % (Manual) Eosinophils % (Manual) Basophils % (Manual) Seg Neutrophils # Man Lymphocytes # (Manual) Monocytes # (Manual) Eosinophils # (Manual) Basophils # (Manual) PT 15.8 H INR 1.20 H D-Dimer Heparin Anti-Xa Level POC ABG pH POC ABG pCO2 POC ABG pO2 VBG pH Potassium Chloride Carbon Dioxide BUN Glucose POC Glucose Lactic Acid Calcium Magnesium NT-Pro-B Natriuret Pep 6070 H Total Protein Albumin TSH 08/14/17 08/14/17 08/14/17 17:23 20:37 23:18 WBC RBC Hgb Hct MCV MCH MCHC RDW Cole % (Auto) Eos % (Auto) Cole # Eos # Seg Neutrophils % Seg Neuts % (Manual) Lymphocytes % (Manual) Monocytes % (Manual) Eosinophils % (Manual) Basophils % (Manual) Seg Neutrophils # Man Lymphocytes # (Manual) Monocytes # (Manual) Eosinophils # (Manual) Basophils # (Manual) PT INR D-Dimer Heparin Anti-Xa Level < 0.10 L POC ABG pH 7.566 H 7.494 H POC ABG pCO2 51.6 H POC ABG pO2 45 L 52 L VBG pH Potassium Chloride Carbon Dioxide BUN Glucose POC Glucose Lactic Acid Calcium Magnesium NT-Pro-B Natriuret Pep Total Protein Albumin TSH 08/15/17 08/15/17 08/15/17 04:15 04:20 08:26 WBC RBC Hgb Hct MCV MCH MCHC RDW Cole % (Auto) Eos % (Auto) Cole # Eos # Seg Neutrophils % Seg Neuts % (Manual) Lymphocytes % (Manual) Monocytes % (Manual) Eosinophils % (Manual) Basophils % (Manual) Seg Neutrophils # Man Lymphocytes # (Manual) Monocytes # (Manual) Eosinophils # (Manual) Basophils # (Manual) PT 16.3 H INR 1.24 H D-Dimer Heparin Anti-Xa Level 0.12 L POC ABG pH 7.471 H POC ABG pCO2 53.8 H POC ABG pO2 VBG pH Potassium Chloride Carbon Dioxide BUN Glucose POC Glucose Lactic Acid Calcium Magnesium NT-Pro-B Natriuret Pep Total Protein Albumin TSH 08/15/17 08/16/17 08/16/17 22:00 05:25 05:25 WBC RBC Hgb 11.1 L Hct MCV MCH MCHC RDW Cole % (Auto) Eos % (Auto) Cole # Eos # Seg Neutrophils % Seg Neuts % (Manual) Lymphocytes % (Manual) Monocytes % (Manual) Eosinophils % (Manual) Basophils % (Manual) Seg Neutrophils # Man Lymphocytes # (Manual) Monocytes # (Manual) Eosinophils # (Manual) Basophils # (Manual) PT 20.1 H INR 1.61 H D-Dimer Heparin Anti-Xa Level 0.17 L 0.28 L POC ABG pH POC ABG pCO2 POC ABG pO2 VBG pH Potassium Chloride Carbon Dioxide BUN Glucose POC Glucose Lactic Acid Calcium Magnesium NT-Pro-B Natriuret Pep Total Protein Albumin TSH 08/16/17 08/16/17 08/17/17 14:04 14:04 05:58 WBC RBC 5.10 H Hgb 11.2 L Hct MCV 75 L MCH 22 L MCHC 29 L RDW 20.9 H Cole % (Auto) Eos % (Auto) Cole # Eos # Seg Neutrophils % Seg Neuts % (Manual) Lymphocytes % (Manual) Monocytes % (Manual) Eosinophils % (Manual) Basophils % (Manual) Seg Neutrophils # Man Lymphocytes # (Manual) Monocytes # (Manual) Eosinophils # (Manual) Basophils # (Manual) PT 34.7 H INR 3.20 H D-Dimer Heparin Anti-Xa Level POC ABG pH POC ABG pCO2 POC ABG pO2 VBG pH Potassium 3.5 L Chloride 93.1 L Carbon Dioxide 37 H BUN 27 H Glucose 226 H POC Glucose Lactic Acid Calcium Magnesium NT-Pro-B Natriuret Pep Total Protein 5.8 L Albumin 3.0 L [facility] 08/17/17 08/18/17 08/18/17 21:48 04:00 05:23 WBC RBC Hgb 11.3 L Hct MCV MCH MCHC RDW Cole % (Auto) Eos % (Auto) Cole # Eos # Seg Neutrophils % Seg Neuts % (Manual) Lymphocytes % (Manual) Monocytes % (Manual) Eosinophils % (Manual) Basophils % (Manual) Seg Neutrophils # Man Lymphocytes # (Manual) Monocytes # (Manual) Eosinophils # (Manual) Basophils # (Manual) PT 24.2 H INR 2.04 H D-Dimer 1693.79 H Heparin Anti-Xa Level POC ABG pH POC ABG pCO2 POC ABG pO2 VBG pH Potassium Chloride Carbon Dioxide BUN Glucose POC Glucose Lactic Acid Calcium Magnesium NT-Pro-B Natriuret Pep Total Protein Albumin [facility] 08/18/17 08/19/17 08/20/17 05:23 04:30 03:00 WBC RBC Hgb 11.7 L Hct MCV MCH MCHC RDW Cole % (Auto) Eos % (Auto) Cole # Eos # Seg Neutrophils % Seg Neuts % (Manual) Lymphocytes % (Manual) Monocytes % (Manual) Eosinophils % (Manual) Basophils % (Manual) Seg Neutrophils # Man Lymphocytes # (Manual) Monocytes # (Manual) Eosinophils # (Manual) Basophils # (Manual) PT 20.0 H INR 1.60 H D-Dimer Heparin Anti-Xa Level POC ABG pH POC ABG pCO2 POC ABG pO2 VBG pH Potassium Chloride 86.8 L Carbon Dioxide 38 H BUN 33 H Glucose 355 H POC Glucose Lactic Acid Calcium Magnesium NT-Pro-B Natriuret Pep Total Protein Albumin [facility] 08/20/17 08/20/17 08/20/17 03:00 03:00 17:37 WBC RBC Hgb Hct MCV MCH MCHC RDW Cole % (Auto) Eos % (Auto) Cole # Eos # Seg Neutrophils % Seg Neuts % (Manual) Lymphocytes % (Manual) Monocytes % (Manual) Eosinophils % (Manual) Basophils % (Manual) Seg Neutrophils # Man Lymphocytes # (Manual) Monocytes # (Manual) Eosinophils # (Manual) Basophils # (Manual) PT 22.7 H INR 1.87 H D-Dimer Heparin Anti-Xa Level POC ABG pH POC ABG pCO2 POC ABG pO2 VBG pH Potassium Chloride 91.3 L Carbon Dioxide 38 H BUN 34 H Glucose 391 H POC Glucose 312 H Lactic Acid Calcium Magnesium NT-Pro-B Natriuret Pep Total Protein Albumin [facility] 08/20/17 08/21/17 08/21/17 22:34 06:40 08:22 WBC RBC Hgb Hct MCV MCH MCHC RDW Cole % (Auto) Eos % (Auto) Cole # Eos # Seg Neutrophils % Seg Neuts % (Manual) Lymphocytes % (Manual) Monocytes % (Manual) Eosinophils % (Manual) Basophils % (Manual) Seg Neutrophils # Man Lymphocytes # (Manual) Monocytes # (Manual) Eosinophils # (Manual) Basophils # (Manual) PT 28.6 H INR 2.49 H D-Dimer Heparin Anti-Xa Level POC ABG pH POC ABG pCO2 POC ABG pO2 VBG pH Potassium Chloride Carbon Dioxide BUN Glucose POC Glucose 166 H 123 H Lactic Acid Calcium Magnesium NT-Pro-B Natriuret Pep Total Protein Albumin [facility] 08/21/17 08/21/17 08/21/17 12:29 17:08 21:17 WBC RBC Hgb Hct MCV MCH MCHC RDW Cole % (Auto) Eos % (Auto) Cole # Eos # Seg Neutrophils % Seg Neuts % (Manual) Lymphocytes % (Manual) Monocytes % (Manual) Eosinophils % (Manual) Basophils % (Manual) Seg Neutrophils # Man Lymphocytes # (Manual) Monocytes # (Manual) Eosinophils # (Manual) Basophils # (Manual) PT INR D-Dimer Heparin Anti-Xa Level POC ABG pH POC ABG pCO2 POC ABG pO2 VBG pH Potassium Chloride Carbon Dioxide BUN Glucose POC Glucose 182 H 135 H 145 H Lactic Acid Calcium Magnesium NT-Pro-B Natriuret Pep Total Protein Albumin [facility] 08/22/17 08/22/17 08/22/17 04:00 05:00 08:35 WBC RBC Hgb Hct MCV MCH MCHC RDW Cole % (Auto) Eos % (Auto) Cole # Eos # Seg Neutrophils % Seg Neuts % (Manual) Lymphocytes % (Manual) Monocytes % (Manual) Eosinophils % (Manual) Basophils % (Manual) Seg Neutrophils # Man Lymphocytes # (Manual) Monocytes # (Manual) Eosinophils # (Manual) Basophils # (Manual) PT 27.6 H INR 2.38 H D-Dimer Heparin Anti-Xa Level POC ABG pH POC ABG pCO2 POC ABG pO2 VBG pH Potassium Chloride 90.8 L Carbon Dioxide 40 H BUN 30 H Glucose 149 H POC Glucose 132 H Lactic Acid Calcium Magnesium 2.40 H NT-Pro-B Natriuret Pep Total Protein Albumin [facility] 08/22/17 08/22/17 08/22/17 13:54 16:38 21:07 WBC RBC Hgb Hct MCV MCH MCHC RDW Cole % (Auto) Eos % (Auto) Cole # Eos # Seg Neutrophils % Seg Neuts % (Manual) Lymphocytes % (Manual) Monocytes % (Manual) Eosinophils % (Manual) Basophils % (Manual) Seg Neutrophils # Man Lymphocytes # (Manual) Monocytes # (Manual) Eosinophils # (Manual) Basophils # (Manual) PT INR D-Dimer Heparin Anti-Xa Level POC ABG pH POC ABG pCO2 POC ABG pO2 VBG pH Potassium Chloride Carbon Dioxide BUN Glucose POC Glucose 189 H 192 H 181 H Lactic Acid Calcium Magnesium NT-Pro-B Natriuret Pep Total Protein Albumin [facility] 08/23/17 08/23/17 08/23/17 05:25 08:18 12:27 WBC RBC Hgb Hct MCV MCH MCHC RDW Cole % (Auto) Eos % (Auto) Cole # Eos # Seg Neutrophils % Seg Neuts % (Manual) Lymphocytes % (Manual) Monocytes % (Manual) Eosinophils % (Manual) Basophils % (Manual) Seg Neutrophils # Man Lymphocytes # (Manual) Monocytes # (Manual) Eosinophils # (Manual) Basophils # (Manual) PT 28.2 H INR 2.45 H D-Dimer Heparin Anti-Xa Level POC ABG pH POC ABG pCO2 POC ABG pO2 VBG pH Potassium Chloride Carbon Dioxide BUN Glucose POC Glucose 168 H 109 H Lactic Acid Calcium Magnesium NT-Pro-B Natriuret Pep Total Protein Albumin [facility] 08/23/17 08/24/17 08/24/17 16:49 08:00 08:24 WBC RBC Hgb Hct MCV MCH MCHC RDW Cole % (Auto) Eos % (Auto) Cole # Eos # Seg Neutrophils % Seg Neuts % (Manual) Lymphocytes % (Manual) Monocytes % (Manual) Eosinophils % (Manual) Basophils % (Manual) Seg Neutrophils # Man Lymphocytes # (Manual) Monocytes # (Manual) Eosinophils # (Manual) Basophils # (Manual) PT 29.3 H INR 2.57 H D-Dimer Heparin Anti-Xa Level POC ABG pH POC ABG pCO2 POC ABG pO2 VBG pH Potassium Chloride Carbon Dioxide BUN Glucose POC Glucose 117 H 144 H Lactic Acid Calcium Magnesium NT-Pro-B Natriuret Pep Total Protein Albumin TSH 08/24/17 08/24/17 08/24/17 12:57 16:23 21:13 WBC RBC Hgb Hct MCV MCH MCHC RDW Cole % (Auto) Eos % (Auto) Cole # Eos # Seg Neutrophils % Seg Neuts % (Manual) Lymphocytes % (Manual) Monocytes % (Manual) Eosinophils % (Manual) Basophils % (Manual) Seg Neutrophils # Man Lymphocytes # (Manual) Monocytes # (Manual) Eosinophils # (Manual) Basophils # (Manual) PT INR D-Dimer Heparin Anti-Xa Level POC ABG pH POC ABG pCO2 POC ABG pO2 VBG pH Potassium Chloride Carbon Dioxide BUN Glucose POC Glucose 113 H 145 H 209 H Lactic Acid Calcium Magnesium NT-Pro-B Natriuret Pep Total Protein Albumin TSH 08/25/17 08/25/17 08/25/17 05:00 08:07 12:00 WBC RBC Hgb Hct MCV MCH MCHC RDW Cole % (Auto) Eos % (Auto) Cole # Eos # Seg Neutrophils % Seg Neuts % (Manual) Lymphocytes % (Manual) Monocytes % (Manual) Eosinophils % (Manual) Basophils % (Manual) Seg Neutrophils # Man Lymphocytes # (Manual) Monocytes # (Manual) Eosinophils # (Manual) Basophils # (Manual) PT 29.1 H INR 2.55 H D-Dimer Heparin Anti-Xa Level POC ABG pH POC ABG pCO2 POC ABG pO2 VBG pH Potassium Chloride Carbon Dioxide BUN Glucose POC Glucose 129 H 125 H Lactic Acid Calcium Magnesium NT-Pro-B Natriuret Pep Total Protein Albumin TSH 08/25/17 08/25/17 08/26/17 17:04 22:11 06:15 WBC RBC Hgb Hct MCV MCH MCHC RDW Cole % (Auto) Eos % (Auto) Cole # Eos # Seg Neutrophils % Seg Neuts % (Manual) Lymphocytes % (Manual) Monocytes % (Manual) Eosinophils % (Manual) Basophils % (Manual) Seg Neutrophils # Man Lymphocytes # (Manual) Monocytes # (Manual) Eosinophils # (Manual) Basophils # (Manual) PT 29.1 H INR 2.55 H D-Dimer Heparin Anti-Xa Level POC ABG pH POC ABG pCO2 POC ABG pO2 VBG pH Potassium Chloride Carbon Dioxide BUN Glucose POC Glucose 124 H 130 H Lactic Acid Calcium Magnesium NT-Pro-B Natriuret Pep Total Protein Albumin TSH 08/26/17 08/26/17 08/26/17 09:04 12:13 21:32 WBC RBC Hgb Hct MCV MCH MCHC RDW Cole % (Auto) Eos % (Auto) Cole # Eos # Seg Neutrophils % Seg Neuts % (Manual) Lymphocytes % (Manual) Monocytes % (Manual) Eosinophils % (Manual) Basophils % (Manual) Seg Neutrophils # Man Lymphocytes # (Manual) Monocytes # (Manual) Eosinophils # (Manual) Basophils # (Manual) PT INR D-Dimer Heparin Anti-Xa Level POC ABG pH POC ABG pCO2 POC ABG pO2 VBG pH Potassium Chloride Carbon Dioxide BUN Glucose POC Glucose 137 H 201 H 185 H Lactic Acid Calcium Magnesium NT-Pro-B Natriuret Pep Total Protein Albumin [facility] 08/27/17 08/27/17 08/27/17 04:00 04:00 05:00 WBC RBC 5.15 H Hgb Hct MCV 74 L MCH 23 L MCHC 31 L RDW 20.4 H Cole % (Auto) 11.0 H Eos % (Auto) 5.2 H Cole # 1.2 H Eos # 0.6 H Seg Neutrophils % Seg Neuts % (Manual) Lymphocytes % (Manual) Monocytes % (Manual) Eosinophils % (Manual) Basophils % (Manual) Seg Neutrophils # Man Lymphocytes # (Manual) Monocytes # (Manual) Eosinophils # (Manual) Basophils # (Manual) PT 29.0 H INR 2.53 H D-Dimer Heparin Anti-Xa Level POC ABG pH POC ABG pCO2 POC ABG pO2 VBG pH Potassium Chloride 90.7 L Carbon Dioxide 35 H BUN Glucose 147 H POC Glucose Lactic Acid Calcium Magnesium NT-Pro-B Natriuret Pep Total Protein Albumin [facility] 08/27/17 08/27/17 08/27/17 11:44 16:32 21:13 WBC RBC Hgb Hct MCV MCH MCHC RDW Cole % (Auto) Eos % (Auto) Cole # Eos # Seg Neutrophils % Seg Neuts % (Manual) Lymphocytes % (Manual) Monocytes % (Manual) Eosinophils % (Manual) Basophils % (Manual) Seg Neutrophils # Man Lymphocytes # (Manual) Monocytes # (Manual) Eosinophils # (Manual) Basophils # (Manual) PT INR D-Dimer Heparin Anti-Xa Level POC ABG pH POC ABG pCO2 POC ABG pO2 VBG pH Potassium Chloride Carbon Dioxide BUN Glucose POC Glucose 131 H 131 H 197 H Lactic Acid Calcium Magnesium NT-Pro-B Natriuret Pep Total Protein Albumin TSH 08/28/17 08/28/17 08/28/17 06:38 08:11 11:36 WBC RBC Hgb Hct MCV MCH MCHC RDW Cole % (Auto) Eos % (Auto) Cole # Eos # Seg Neutrophils % Seg Neuts % (Manual) Lymphocytes % (Manual) Monocytes % (Manual) Eosinophils % (Manual) Basophils % (Manual) Seg Neutrophils # Man Lymphocytes # (Manual) Monocytes # (Manual) Eosinophils # (Manual) Basophils # (Manual) PT 26.5 H INR 2.27 H D-Dimer Heparin Anti-Xa Level POC ABG pH POC ABG pCO2 POC ABG pO2 VBG pH Potassium Chloride Carbon Dioxide BUN Glucose POC Glucose 142 H 215 H Lactic Acid Calcium Magnesium NT-Pro-B Natriuret Pep Total Protein Albumin TSH 08/28/17 08/28/17 08/29/17 16:33 21:27 05:47 WBC RBC Hgb Hct MCV MCH MCHC RDW Cole % (Auto) Eos % (Auto) Cole # Eos # Seg Neutrophils % Seg Neuts % (Manual) Lymphocytes % (Manual) Monocytes % (Manual) Eosinophils % (Manual) Basophils % (Manual) Seg Neutrophils # Man Lymphocytes # (Manual) Monocytes # (Manual) Eosinophils # (Manual) Basophils # (Manual) PT 28.9 H INR 2.52 H D-Dimer Heparin Anti-Xa Level POC ABG pH POC ABG pCO2 POC ABG pO2 VBG pH Potassium Chloride Carbon Dioxide BUN Glucose POC Glucose 140 H 201 H Lactic Acid Calcium Magnesium NT-Pro-B Natriuret Pep Total Protein Albumin [facility] 08/29/17 08/29/17 08/29/17 08:15 11:30 16:27 WBC RBC Hgb Hct MCV MCH MCHC RDW Cole % (Auto) Eos % (Auto) Cole # Eos # Seg Neutrophils % Seg Neuts % (Manual) Lymphocytes % (Manual) Monocytes % (Manual) Eosinophils % (Manual) Basophils % (Manual) Seg Neutrophils # Man Lymphocytes # (Manual) Monocytes # (Manual) Eosinophils # (Manual) Basophils # (Manual) PT INR D-Dimer Heparin Anti-Xa Level POC ABG pH POC ABG pCO2 POC ABG pO2 VBG pH Potassium Chloride Carbon Dioxide BUN Glucose POC Glucose 168 H 171 H 174 H Lactic Acid Calcium Magnesium NT-Pro-B Natriuret Pep Total Protein Albumin TSH 08/29/17 08/30/17 08/30/17 21:16 05:20 08:06 WBC RBC Hgb Hct MCV MCH MCHC RDW Cole % (Auto) Eos % (Auto) Cole # Eos # Seg Neutrophils % Seg Neuts % (Manual) Lymphocytes % (Manual) Monocytes % (Manual) Eosinophils % (Manual) Basophils % (Manual) Seg Neutrophils # Man Lymphocytes # (Manual) Monocytes # (Manual) Eosinophils # (Manual) Basophils # (Manual) PT INR D-Dimer Heparin Anti-Xa Level POC ABG pH POC ABG pCO2 POC ABG pO2 VBG pH Potassium Chloride Carbon Dioxide BUN Glucose POC Glucose 176 H 146 H 118 H Lactic Acid Calcium Magnesium NT-Pro-B Natriuret Pep Total Protein Albumin TSH 08/30/17 08/30/17 08/30/17 12:20 17:05 21:58 WBC RBC Hgb Hct MCV MCH MCHC RDW Cole % (Auto) Eos % (Auto) Cole # Eos # Seg Neutrophils % Seg Neuts % (Manual) Lymphocytes % (Manual) Monocytes % (Manual) Eosinophils % (Manual) Basophils % (Manual) Seg Neutrophils # Man Lymphocytes # (Manual) Monocytes # (Manual) Eosinophils # (Manual) Basophils # (Manual) PT INR D-Dimer Heparin Anti-Xa Level POC ABG pH POC ABG pCO2 POC ABG pO2 VBG pH Potassium Chloride Carbon Dioxide BUN Glucose POC Glucose 150 H 122 H 124 H Lactic Acid Calcium Magnesium NT-Pro-B Natriuret Pep Total Protein Albumin TSH 08/30/17 08/31/17 08/31/17 Unknown 05:40 05:40 WBC RBC 5.19 H Hgb Hct MCV 75 L MCH 23 L MCHC 31 L RDW 21.0 H Cole % (Auto) Eos % (Auto) Cole # Eos # Seg Neutrophils % Seg Neuts % (Manual) Lymphocytes % (Manual) Monocytes % (Manual) Eosinophils % (Manual) Basophils % (Manual) Seg Neutrophils # Man Lymphocytes # (Manual) Monocytes # (Manual) Eosinophils # (Manual) Basophils # (Manual) PT 32.1 H 34.9 H INR 2.87 H 3.19 H D-Dimer Heparin Anti-Xa Level POC ABG pH POC ABG pCO2 POC ABG pO2 VBG pH Potassium Chloride Carbon Dioxide BUN Glucose POC Glucose Lactic Acid Calcium Magnesium NT-Pro-B Natriuret Pep Total Protein Albumin TSH 08/31/17 08/31/17 08/31/17 05:40 08:24 11:47 WBC RBC Hgb Hct MCV MCH MCHC RDW Cole % (Auto) Eos % (Auto) Cole # Eos # Seg Neutrophils % Seg Neuts % (Manual) Lymphocytes % (Manual) Monocytes % (Manual) Eosinophils % (Manual) Basophils % (Manual) Seg Neutrophils # Man Lymphocytes # (Manual) Monocytes # (Manual) Eosinophils # (Manual) Basophils # (Manual) PT INR D-Dimer Heparin Anti-Xa Level POC ABG pH POC ABG pCO2 POC ABG pO2 VBG pH Potassium Chloride 92.9 L Carbon Dioxide 32 H BUN Glucose 152 H POC Glucose 109 H 157 H Lactic Acid Calcium Magnesium NT-Pro-B Natriuret Pep Total Protein Albumin TSH Chest x-ray: report reviewed, image reviewed
[2017-09-01] MEDS: NOVOLOG SUB-Q SCH ×3 (00:24→14:11)
[2017-09-01] MEDS: LASIX IV SCH ×2 (02:10→10:10)
[2017-09-01 06:05] LABS: INR 3.34 (0.87-1.13)
[2017-09-01 09:45] VITALS: BP 126/79
[2017-09-01] MEDS: K-DUR PO SCH (10:10)
--- NOTE | 2017-09-01 12:17 | Progress Note ---
Assessment and Plan 26 y/o male, morbidly, morbidly obese, admitted with acute respiratory failure, most likely multifactorial. 1. Needs weight loss 2. has sleep study already scheduled, must keep appointment 3. Continue net negative state as renal function and BP will allow, suffers from systolic heart failure and severe pulmonary hypertension. 4. Suggest fluid restriction 5. Must have PPV on anytime he is sleeping as his heart rate drops into the 30' s while sleeping 6. Wean FiO2 for sats >88%, now down to wall cannula and stable. No objection to discharge Subjective Date of service: 09/01/17 Principal diagnosis: heart failure, hypercapnic respiratory failure, severe morbid obesity Interval history: No acute events. Off HFNC. Stable on wall nasal cannula. Objective Vital Signs - 12hr 09/01/17 09/01/17 09/01/17 03:54 07:54 09:44 Temperature 97.9 F 97.8 F Pulse Rate 69 65 Respiratory 18 18 Rate Blood Pressure 142/74 Blood Pressure 126/79 [Left] O2 Sat by Pulse 100 95 96 Oximetry Constitutional: no acute distress, alert Eyes: non-icteric ENT: oropharynx moist Neck: other (extremely large in circumference) Effort: normal Ascultation: Right: rhonchi ( ), Bilateral: clear, diminished breath sounds, wheezes (mild) Percussion: Bilateral: not dull Cardiovascular: regular rate and rhythm (no mrg) Gastrointestinal: normoactive bowel sounds, soft, non-tender, non-distended, other (obese) Integumentary: other (chronic venous stasis changes LEs) Extremities: no cyanosis, edema (lymphedema), other (bilateral lymphedema with chronic changes) Neurologic: normal mental status, non-focal exam, pupils equal and round, CN II- XII normal Psychiatric: mood appropriate, affect normal CBC and BMP: 08/31/17 05:40 08/31/17 05:40 ABG, PT/INR, D-dimer: ABG POC ABG pH 7.471 (7.35-7.45) H 08/15/17 04:20 POC ABG pCO2 53.8 (35-45) H 08/15/17 04:20 POC ABG pO2 81 (80-105) 08/15/17 04:20 POC ABG HCO3 39.3 08/15/17 04:20 POC ABG Total CO2 41 08/15/17 04:20 POC ABG O2 Sat 96 08/15/17 04:20 PT/INR, D-dimer PT 36.2 Sec. (12.2-14.9) H 09/01/17 05:36 INR 3.34 (0.87-1.13) H 09/01/17 05:36 D-Dimer 1693.79 ng/mlDDU (0-234) H 08/17/17 21:48 Abnormal lab findings: Abnormal Labs 08/07/17 08/07/17 08/07/17 16:58 16:58 16:58 WBC 16.1 H RBC 5.44 H Hgb Hct MCV 74 L MCH 22 L MCHC 29 L RDW 21.7 H [place] % (Auto) Eos % (Auto) [place] # Eos # Seg Neutrophils % Seg Neuts % (Manual) 87.0 H Lymphocytes % (Manual) 7.0 L Monocytes % (Manual) Eosinophils % (Manual) Basophils % (Manual) 2.0 H Seg Neutrophils # Man 14.0 H Lymphocytes # (Manual) 1.1 L Monocytes # (Manual) Eosinophils # (Manual) Basophils # (Manual) 0.3 H PT 16.2 H INR 1.23 H D-Dimer Heparin Anti-Xa Level POC ABG pH POC ABG pCO2 POC ABG pO2 VBG pH Potassium Chloride 96.2 L Carbon Dioxide 31 H BUN Glucose POC Glucose Lactic Acid Calcium Magnesium NT-Pro-B Natriuret Pep Total Protein 5.8 L Albumin 3.0 L TSH 08/07/17 08/07/17 08/07/17 16:58 16:58 16:58 WBC RBC Hgb Hct MCV MCH MCHC RDW [place] % (Auto) Eos % (Auto) [place] # Eos # Seg Neutrophils % Seg Neuts % (Manual) Lymphocytes % (Manual) Monocytes % (Manual) Eosinophils % (Manual) Basophils % (Manual) Seg Neutrophils # Man Lymphocytes # (Manual) Monocytes # (Manual) Eosinophils # (Manual) Basophils # (Manual) PT INR D-Dimer Heparin Anti-Xa Level POC ABG pH POC ABG pCO2 POC ABG pO2 VBG pH 7.463 H Potassium Chloride Carbon Dioxide BUN Glucose POC Glucose Lactic Acid 2.10 H* Calcium Magnesium NT-Pro-B Natriuret Pep 2205 H Total Protein Albumin TSH 08/09/17 08/09/17 08/10/17 10:57 13:37 08:04 WBC 14.5 H RBC Hgb 10.8 L 10.8 L Hct 35.1 L MCV 74 L 76 L MCH 23 L 23 L MCHC 31 L 30 L RDW 21.2 H 21.0 H [place] % (Auto) Eos % (Auto) [place] # Eos # Seg Neutrophils % 75.4 H Seg Neuts % (Manual) Lymphocytes % (Manual) Monocytes % (Manual) 9.0 H Eosinophils % (Manual) 5.0 H Basophils % (Manual) Seg Neutrophils # Man 9.3 H Lymphocytes # (Manual) Monocytes # (Manual) 1.3 H Eosinophils # (Manual) 0.7 H Basophils # (Manual) PT INR D-Dimer Heparin Anti-Xa Level POC ABG pH POC ABG pCO2 POC ABG pO2 VBG pH Potassium Chloride 96.9 L Carbon Dioxide 32 H BUN Glucose POC Glucose Lactic Acid Calcium 8.3 L Magnesium NT-Pro-B Natriuret Pep Total Protein Albumin TSH 08/10/17 08/10/17 08/10/17 08:04 08:04 14:50 WBC RBC Hgb Hct MCV MCH MCHC RDW [place] % (Auto) Eos % (Auto) [place] # Eos # Seg Neutrophils % Seg Neuts % (Manual) Lymphocytes % (Manual) Monocytes % (Manual) Eosinophils % (Manual) Basophils % (Manual) Seg Neutrophils # Man Lymphocytes # (Manual) Monocytes # (Manual) Eosinophils # (Manual) Basophils # (Manual) PT INR D-Dimer Heparin Anti-Xa Level POC ABG pH POC ABG pCO2 65.9 H POC ABG pO2 VBG pH Potassium Chloride Carbon Dioxide 32 H BUN Glucose 115 H POC Glucose Lactic Acid Calcium Magnesium NT-Pro-B Natriuret Pep Total Protein Albumin TSH 4.900 H 08/11/17 08/11/17 08/11/17 07:12 07:12 07:12 WBC RBC Hgb 10.3 L Hct MCV 76 L MCH 22 L MCHC 29 L RDW 21.4 H [place] % (Auto) 8.8 H Eos % (Auto) [place] # Eos # Seg Neutrophils % Seg Neuts % (Manual) Lymphocytes % (Manual) Monocytes % (Manual) Eosinophils % (Manual) Basophils % (Manual) Seg Neutrophils # Man Lymphocytes # (Manual) Monocytes # (Manual) Eosinophils # (Manual) Basophils # (Manual) PT INR D-Dimer Heparin Anti-Xa Level POC ABG pH POC ABG pCO2 POC ABG pO2 VBG pH Potassium Chloride Carbon Dioxide 35 H BUN Glucose 105 H POC Glucose Lactic Acid Calcium Magnesium NT-Pro-B Natriuret Pep Total Protein 5.8 L Albumin 3.1 L TSH 4.780 H 08/12/17 08/12/17 08/13/17 04:31 04:31 11:34 WBC RBC Hgb 10.7 L Hct 35.3 L MCV 76 L MCH 23 L MCHC 30 L RDW 21.3 H [place] % (Auto) Eos % (Auto) [place] # Eos # Seg Neutrophils % Seg Neuts % (Manual) Lymphocytes % (Manual) Monocytes % (Manual) Eosinophils % (Manual) Basophils % (Manual) Seg Neutrophils # Man Lymphocytes # (Manual) Monocytes # (Manual) Eosinophils # (Manual) Basophils # (Manual) PT INR D-Dimer Heparin Anti-Xa Level POC ABG pH POC ABG pCO2 61.1 H POC ABG pO2 57 L VBG pH Potassium Chloride 95.8 L Carbon Dioxide 33 H BUN Glucose POC Glucose Lactic Acid Calcium Magnesium NT-Pro-B Natriuret Pep Total Protein 5.8 L Albumin 3.0 L TSH 08/14/17 08/14/17 08/14/17 10:36 10:36 10:36 WBC RBC Hgb 10.7 L Hct MCV MCH MCHC RDW [place] % (Auto) Eos % (Auto) [place] # Eos # Seg Neutrophils % Seg Neuts % (Manual) Lymphocytes % (Manual) Monocytes % (Manual) Eosinophils % (Manual) Basophils % (Manual) Seg Neutrophils # Man Lymphocytes # (Manual) Monocytes # (Manual) Eosinophils # (Manual) Basophils # (Manual) PT 15.8 H INR 1.20 H D-Dimer Heparin Anti-Xa Level POC ABG pH POC ABG pCO2 POC ABG pO2 VBG pH Potassium Chloride Carbon Dioxide BUN Glucose POC Glucose Lactic Acid Calcium Magnesium NT-Pro-B Natriuret Pep 6070 H Total Protein Albumin TSH 08/14/17 08/14/17 08/14/17 17:23 20:37 23:18 WBC RBC Hgb Hct MCV MCH MCHC RDW [place] % (Auto) Eos % (Auto) [place] # Eos # Seg Neutrophils % Seg Neuts % (Manual) Lymphocytes % (Manual) Monocytes % (Manual) Eosinophils % (Manual) Basophils % (Manual) Seg Neutrophils # Man Lymphocytes # (Manual) Monocytes # (Manual) Eosinophils # (Manual) Basophils # (Manual) PT INR D-Dimer Heparin Anti-Xa Level < 0.10 L POC ABG pH 7.566 H 7.494 H POC ABG pCO2 51.6 H POC ABG pO2 45 L 52 L VBG pH Potassium Chloride Carbon Dioxide BUN Glucose POC Glucose Lactic Acid Calcium Magnesium NT-Pro-B Natriuret Pep Total Protein Albumin TSH 08/15/17 08/15/17 08/15/17 04:15 04:20 08:26 WBC RBC Hgb Hct MCV MCH MCHC RDW [place] % (Auto) Eos % (Auto) [place] # Eos # Seg Neutrophils % Seg Neuts % (Manual) Lymphocytes % (Manual) Monocytes % (Manual) Eosinophils % (Manual) Basophils % (Manual) Seg Neutrophils # Man Lymphocytes # (Manual) Monocytes # (Manual) Eosinophils # (Manual) Basophils # (Manual) PT 16.3 H INR 1.24 H D-Dimer Heparin Anti-Xa Level 0.12 L POC ABG pH 7.471 H POC ABG pCO2 53.8 H POC ABG pO2 VBG pH Potassium Chloride Carbon Dioxide BUN Glucose POC Glucose Lactic Acid Calcium Magnesium NT-Pro-B Natriuret Pep Total Protein Albumin TSH 08/15/17 08/16/17 08/16/17 22:00 05:25 05:25 WBC RBC Hgb 11.1 L Hct MCV MCH MCHC RDW [place] % (Auto) Eos % (Auto) [place] # Eos # Seg Neutrophils % Seg Neuts % (Manual) Lymphocytes % (Manual) Monocytes % (Manual) Eosinophils % (Manual) Basophils % (Manual) Seg Neutrophils # Man Lymphocytes # (Manual) Monocytes # (Manual) Eosinophils # (Manual) Basophils # (Manual) PT 20.1 H INR 1.61 H D-Dimer Heparin Anti-Xa Level 0.17 L 0.28 L POC ABG pH POC ABG pCO2 POC ABG pO2 VBG pH Potassium Chloride Carbon Dioxide BUN Glucose POC Glucose Lactic Acid Calcium Magnesium NT-Pro-B Natriuret Pep Total Protein Albumin TSH 08/16/17 08/16/17 08/17/17 14:04 14:04 05:58 WBC RBC 5.10 H Hgb 11.2 L Hct MCV 75 L MCH 22 L MCHC 29 L RDW 20.9 H [place] % (Auto) Eos % (Auto) [place] # Eos # Seg Neutrophils % Seg Neuts % (Manual) Lymphocytes % (Manual) Monocytes % (Manual) Eosinophils % (Manual) Basophils % (Manual) Seg Neutrophils # Man Lymphocytes # (Manual) Monocytes # (Manual) Eosinophils # (Manual) Basophils # (Manual) PT 34.7 H INR 3.20 H D-Dimer Heparin Anti-Xa Level POC ABG pH POC ABG pCO2 POC ABG pO2 VBG pH Potassium 3.5 L Chloride 93.1 L Carbon Dioxide 37 H BUN 27 H Glucose 226 H POC Glucose Lactic Acid Calcium Magnesium NT-Pro-B Natriuret Pep Total Protein 5.8 L Albumin 3.0 L TSH 08/17/17 08/18/17 08/18/17 21:48 04:00 05:23 WBC RBC Hgb 11.3 L Hct MCV MCH MCHC RDW [place] % (Auto) Eos % (Auto) [place] # Eos # Seg Neutrophils % Seg Neuts % (Manual) Lymphocytes % (Manual) Monocytes % (Manual) Eosinophils % (Manual) Basophils % (Manual) Seg Neutrophils # Man Lymphocytes # (Manual) Monocytes # (Manual) Eosinophils # (Manual) Basophils # (Manual) PT 24.2 H INR 2.04 H D-Dimer 1693.79 H Heparin Anti-Xa Level POC ABG pH POC ABG pCO2 POC ABG pO2 VBG pH Potassium Chloride Carbon Dioxide BUN Glucose POC Glucose Lactic Acid Calcium Magnesium NT-Pro-B Natriuret Pep Total Protein Albumin TSH 08/18/17 08/19/17 08/20/17 05:23 04:30 03:00 WBC RBC Hgb 11.7 L Hct MCV MCH MCHC RDW [place] % (Auto) Eos % (Auto) [place] # Eos # Seg Neutrophils % Seg Neuts % (Manual) Lymphocytes % (Manual) Monocytes % (Manual) Eosinophils % (Manual) Basophils % (Manual) Seg Neutrophils # Man Lymphocytes # (Manual) Monocytes # (Manual) Eosinophils # (Manual) Basophils # (Manual) PT 20.0 H INR 1.60 H D-Dimer Heparin Anti-Xa Level POC ABG pH POC ABG pCO2 POC ABG pO2 VBG pH Potassium Chloride 86.8 L Carbon Dioxide 38 H BUN 33 H Glucose 355 H POC Glucose Lactic Acid Calcium Magnesium NT-Pro-B Natriuret Pep Total Protein Albumin TSH 08/20/17 08/20/17 08/20/17 03:00 03:00 17:37 WBC RBC Hgb Hct MCV MCH MCHC RDW [place] % (Auto) Eos % (Auto) [place] # Eos # Seg Neutrophils % Seg Neuts % (Manual) Lymphocytes % (Manual) Monocytes % (Manual) Eosinophils % (Manual) Basophils % (Manual) Seg Neutrophils # Man Lymphocytes # (Manual) Monocytes # (Manual) Eosinophils # (Manual) Basophils # (Manual) PT 22.7 H INR 1.87 H D-Dimer Heparin Anti-Xa Level POC ABG pH POC ABG pCO2 POC ABG pO2 VBG pH Potassium Chloride 91.3 L Carbon Dioxide 38 H BUN 34 H Glucose 391 H POC Glucose 312 H Lactic Acid Calcium Magnesium NT-Pro-B Natriuret Pep Total Protein Albumin [facility] 08/20/17 08/21/17 08/21/17 22:34 06:40 08:22 WBC RBC Hgb Hct MCV MCH MCHC RDW [place] % (Auto) Eos % (Auto) [place] # Eos # Seg Neutrophils % Seg Neuts % (Manual) Lymphocytes % (Manual) Monocytes % (Manual) Eosinophils % (Manual) Basophils % (Manual) Seg Neutrophils # Man Lymphocytes # (Manual) Monocytes # (Manual) Eosinophils # (Manual) Basophils # (Manual) PT 28.6 H INR 2.49 H D-Dimer Heparin Anti-Xa Level POC ABG pH POC ABG pCO2 POC ABG pO2 VBG pH Potassium Chloride Carbon Dioxide BUN Glucose POC Glucose 166 H 123 H Lactic Acid Calcium Magnesium NT-Pro-B Natriuret Pep Total Protein Albumin [facility] 08/21/17 08/21/17 08/21/17 12:29 17:08 21:17 WBC RBC Hgb Hct MCV MCH MCHC RDW [place] % (Auto) Eos % (Auto) [place] # Eos # Seg Neutrophils % Seg Neuts % (Manual) Lymphocytes % (Manual) Monocytes % (Manual) Eosinophils % (Manual) Basophils % (Manual) Seg Neutrophils # Man Lymphocytes # (Manual) Monocytes # (Manual) Eosinophils # (Manual) Basophils # (Manual) PT INR D-Dimer Heparin Anti-Xa Level POC ABG pH POC ABG pCO2 POC ABG pO2 VBG pH Potassium Chloride Carbon Dioxide BUN Glucose POC Glucose 182 H 135 H 145 H Lactic Acid Calcium Magnesium NT-Pro-B Natriuret Pep Total Protein Albumin [facility] 0208/22/17 08/22/17 04:00 05:00 08:35 WBC RBC Hgb Hct MCV MCH MCHC RDW [place] % (Auto) Eos % (Auto) [place] # Eos # Seg Neutrophils % Seg Neuts % (Manual) Lymphocytes % (Manual) Monocytes % (Manual) Eosinophils % (Manual) Basophils % (Manual) Seg Neutrophils # Man Lymphocytes # (Manual) Monocytes # (Manual) Eosinophils # (Manual) Basophils # (Manual) PT 27.6 H INR 2.38 H D-Dimer Heparin Anti-Xa Level POC ABG pH POC ABG pCO2 POC ABG pO2 VBG pH Potassium Chloride 90.8 L Carbon Dioxide 40 H BUN 30 H Glucose 149 H POC Glucose 132 H Lactic Acid Calcium Magnesium 2.40 H NT-Pro-B Natriuret Pep Total Protein Albumin [facility] 08/22/17 08/22/17 08/22/17 13:54 16:38 21:07 WBC RBC Hgb Hct MCV MCH MCHC RDW [place] % (Auto) Eos % (Auto) [place] # Eos # Seg Neutrophils % Seg Neuts % (Manual) Lymphocytes % (Manual) Monocytes % (Manual) Eosinophils % (Manual) Basophils % (Manual) Seg Neutrophils # Man Lymphocytes # (Manual) Monocytes # (Manual) Eosinophils # (Manual) Basophils # (Manual) PT INR D-Dimer Heparin Anti-Xa Level POC ABG pH POC ABG pCO2 POC ABG pO2 VBG pH Potassium Chloride Carbon Dioxide BUN Glucose POC Glucose 189 H 192 H 181 H Lactic Acid Calcium Magnesium NT-Pro-B Natriuret Pep Total Protein Albumin [facility] 08/23/17 08/23/17 08/23/17 05:25 08:18 12:27 WBC RBC Hgb Hct MCV MCH MCHC RDW [place] % (Auto) Eos % (Auto) [place] # Eos # Seg Neutrophils % Seg Neuts % (Manual) Lymphocytes % (Manual) Monocytes % (Manual) Eosinophils % (Manual) Basophils % (Manual) Seg Neutrophils # Man Lymphocytes # (Manual) Monocytes # (Manual) Eosinophils # (Manual) Basophils # (Manual) PT 28.2 H INR 2.45 H D-Dimer Heparin Anti-Xa Level POC ABG pH POC ABG pCO2 POC ABG pO2 VBG pH Potassium Chloride Carbon Dioxide BUN Glucose POC Glucose 168 H 109 H Lactic Acid Calcium Magnesium NT-Pro-B Natriuret Pep Total Protein Albumin [facility] 08/23/17 08/24/17 08/24/17 16:49 08:00 08:24 WBC RBC Hgb Hct MCV MCH MCHC RDW [place] % (Auto) Eos % (Auto) [place] # Eos # Seg Neutrophils % Seg Neuts % (Manual) Lymphocytes % (Manual) Monocytes % (Manual) Eosinophils % (Manual) Basophils % (Manual) Seg Neutrophils # Man Lymphocytes # (Manual) Monocytes # (Manual) Eosinophils # (Manual) Basophils # (Manual) PT 29.3 H INR 2.57 H D-Dimer Heparin Anti-Xa Level POC ABG pH POC ABG pCO2 POC ABG pO2 VBG pH Potassium Chloride Carbon Dioxide BUN Glucose POC Glucose 117 H 144 H Lactic Acid Calcium Magnesium NT-Pro-B Natriuret Pep Total Protein Albumin [facility] 08/24/17 08/24/17 08/24/17 12:57 16:23 21:13 WBC RBC Hgb Hct MCV MCH MCHC RDW [place] % (Auto) Eos % (Auto) [place] # Eos # Seg Neutrophils % Seg Neuts % (Manual) Lymphocytes % (Manual) Monocytes % (Manual) Eosinophils % (Manual) Basophils % (Manual) Seg Neutrophils # Man Lymphocytes # (Manual) Monocytes # (Manual) Eosinophils # (Manual) Basophils # (Manual) PT INR D-Dimer Heparin Anti-Xa Level POC ABG pH POC ABG pCO2 POC ABG pO2 VBG pH Potassium Chloride Carbon Dioxide BUN Glucose POC Glucose 113 H 145 H 209 H Lactic Acid Calcium Magnesium NT-Pro-B Natriuret Pep Total Protein Albumin [facility] 08/25/17 08/25/17 08/25/17 05:00 08:07 12:00 WBC RBC Hgb Hct MCV MCH MCHC RDW [place] % (Auto) Eos % (Auto) [place] # Eos # Seg Neutrophils % Seg Neuts % (Manual) Lymphocytes % (Manual) Monocytes % (Manual) Eosinophils % (Manual) Basophils % (Manual) Seg Neutrophils # Man Lymphocytes # (Manual) Monocytes # (Manual) Eosinophils # (Manual) Basophils # (Manual) PT 29.1 H INR 2.55 H D-Dimer Heparin Anti-Xa Level POC ABG pH POC ABG pCO2 POC ABG pO2 VBG pH Potassium Chloride Carbon Dioxide BUN Glucose POC Glucose 129 H 125 H Lactic Acid Calcium Magnesium NT-Pro-B Natriuret Pep Total Protein Albumin [facility] 08/25/17 08/25/17 08/26/17 17:04 22:11 06:15 WBC RBC Hgb Hct MCV MCH MCHC RDW [place] % (Auto) Eos % (Auto) [place] # Eos # Seg Neutrophils % Seg Neuts % (Manual) Lymphocytes % (Manual) Monocytes % (Manual) Eosinophils % (Manual) Basophils % (Manual) Seg Neutrophils # Man Lymphocytes # (Manual) Monocytes # (Manual) Eosinophils # (Manual) Basophils # (Manual) PT 29.1 H INR 2.55 H D-Dimer Heparin Anti-Xa Level POC ABG pH POC ABG pCO2 POC ABG pO2 VBG pH Potassium Chloride Carbon Dioxide BUN Glucose POC Glucose 124 H 130 H Lactic Acid Calcium Magnesium NT-Pro-B Natriuret Pep Total Protein Albumin [facility] 08/26/17 08/26/17 08/26/17 09:04 12:13 21:32 WBC RBC Hgb Hct MCV MCH MCHC RDW [place] % (Auto) Eos % (Auto) [place] # Eos # Seg Neutrophils % Seg Neuts % (Manual) Lymphocytes % (Manual) Monocytes % (Manual) Eosinophils % (Manual) Basophils % (Manual) Seg Neutrophils # Man Lymphocytes # (Manual) Monocytes # (Manual) Eosinophils # (Manual) Basophils # (Manual) PT INR D-Dimer Heparin Anti-Xa Level POC ABG pH POC ABG pCO2 POC ABG pO2 VBG pH Potassium Chloride Carbon Dioxide BUN Glucose POC Glucose 137 H 201 H 185 H Lactic Acid Calcium Magnesium NT-Pro-B Natriuret Pep Total Protein Albumin [facility] 08/27/17 08/27/17 08/27/17 04:00 04:00 05:00 WBC RBC 5.15 H Hgb Hct MCV 74 L MCH 23 L MCHC 31 L RDW 20.4 H [place] % (Auto) 11.0 H Eos % (Auto) 5.2 H [place] # 1.2 H Eos # 0.6 H Seg Neutrophils % Seg Neuts % (Manual) Lymphocytes % (Manual) Monocytes % (Manual) Eosinophils % (Manual) Basophils % (Manual) Seg Neutrophils # Man Lymphocytes # (Manual) Monocytes # (Manual) Eosinophils # (Manual) Basophils # (Manual) PT 29.0 H INR 2.53 H D-Dimer Heparin Anti-Xa Level POC ABG pH POC ABG pCO2 POC ABG pO2 VBG pH Potassium Chloride 90.7 L Carbon Dioxide 35 H BUN Glucose 147 H POC Glucose Lactic Acid Calcium Magnesium NT-Pro-B Natriuret Pep Total Protein Albumin TSH 08/27/17 08/27/17 08/27/17 11:44 16:32 21:13 WBC RBC Hgb Hct MCV MCH MCHC RDW [place] % (Auto) Eos % (Auto) [place] # Eos # Seg Neutrophils % Seg Neuts % (Manual) Lymphocytes % (Manual) Monocytes % (Manual) Eosinophils % (Manual) Basophils % (Manual) Seg Neutrophils # Man Lymphocytes # (Manual) Monocytes # (Manual) Eosinophils # (Manual) Basophils # (Manual) PT INR D-Dimer Heparin Anti-Xa Level POC ABG pH POC ABG pCO2 POC ABG pO2 VBG pH Potassium Chloride Carbon Dioxide BUN Glucose POC Glucose 131 H 131 H 197 H Lactic Acid Calcium Magnesium NT-Pro-B Natriuret Pep Total Protein Albumin TSH 08/28/17 08/28/17 08/28/17 06:38 08:11 11:36 WBC RBC Hgb Hct MCV MCH MCHC RDW [place] % (Auto) Eos % (Auto) [place] # Eos # Seg Neutrophils % Seg Neuts % (Manual) Lymphocytes % (Manual) Monocytes % (Manual) Eosinophils % (Manual) Basophils % (Manual) Seg Neutrophils # Man Lymphocytes # (Manual) Monocytes # (Manual) Eosinophils # (Manual) Basophils # (Manual) PT 26.5 H INR 2.27 H D-Dimer Heparin Anti-Xa Level POC ABG pH POC ABG pCO2 POC ABG pO2 VBG pH Potassium Chloride Carbon Dioxide BUN Glucose POC Glucose 142 H 215 H Lactic Acid Calcium Magnesium NT-Pro-B Natriuret Pep Total Protein Albumin TSH 08/28/17 08/28/17 08/29/17 16:33 21:27 05:47 WBC RBC Hgb Hct MCV MCH MCHC RDW [place] % (Auto) Eos % (Auto) [place] # Eos # Seg Neutrophils % Seg Neuts % (Manual) Lymphocytes % (Manual) Monocytes % (Manual) Eosinophils % (Manual) Basophils % (Manual) Seg Neutrophils # Man Lymphocytes # (Manual) Monocytes # (Manual) Eosinophils # (Manual) Basophils # (Manual) PT 28.9 H INR 2.52 H D-Dimer Heparin Anti-Xa Level POC ABG pH POC ABG pCO2 POC ABG pO2 VBG pH Potassium Chloride Carbon Dioxide BUN Glucose POC Glucose 140 H 201 H Lactic Acid Calcium Magnesium NT-Pro-B Natriuret Pep Total Protein Albumin TSH 08/29/17 08/29/17 08/29/17 08:15 11:30 16:27 WBC RBC Hgb Hct MCV MCH MCHC RDW [place] % (Auto) Eos % (Auto) [place] # Eos # Seg Neutrophils % Seg Neuts % (Manual) Lymphocytes % (Manual) Monocytes % (Manual) Eosinophils % (Manual) Basophils % (Manual) Seg Neutrophils # Man Lymphocytes # (Manual) Monocytes # (Manual) Eosinophils # (Manual) Basophils # (Manual) PT INR D-Dimer Heparin Anti-Xa Level POC ABG pH POC ABG pCO2 POC ABG pO2 VBG pH Potassium Chloride Carbon Dioxide BUN Glucose POC Glucose 168 H 171 H 174 H Lactic Acid Calcium Magnesium NT-Pro-B Natriuret Pep Total Protein Albumin [facility] 08/29/17 08/30/17 08/30/17 21:16 05:20 08:06 WBC RBC Hgb Hct MCV MCH MCHC RDW [place] % (Auto) Eos % (Auto) [place] # Eos # Seg Neutrophils % Seg Neuts % (Manual) Lymphocytes % (Manual) Monocytes % (Manual) Eosinophils % (Manual) Basophils % (Manual) Seg Neutrophils # Man Lymphocytes # (Manual) Monocytes # (Manual) Eosinophils # (Manual) Basophils # (Manual) PT INR D-Dimer Heparin Anti-Xa Level POC ABG pH POC ABG pCO2 POC ABG pO2 VBG pH Potassium Chloride Carbon Dioxide BUN Glucose POC Glucose 176 H 146 H 118 H Lactic Acid Calcium Magnesium NT-Pro-B Natriuret Pep Total Protein Albumin [facility] 08/30/17 08/30/17 08/30/17 12:20 17:05 21:58 WBC RBC Hgb Hct MCV MCH MCHC RDW [place] % (Auto) Eos % (Auto) [place] # Eos # Seg Neutrophils % Seg Neuts % (Manual) Lymphocytes % (Manual) Monocytes % (Manual) Eosinophils % (Manual) Basophils % (Manual) Seg Neutrophils # Man Lymphocytes # (Manual) Monocytes # (Manual) Eosinophils # (Manual) Basophils # (Manual) PT INR D-Dimer Heparin Anti-Xa Level POC ABG pH POC ABG pCO2 POC ABG pO2 VBG pH Potassium Chloride Carbon Dioxide BUN Glucose POC Glucose 150 H 122 H 124 H Lactic Acid Calcium Magnesium NT-Pro-B Natriuret Pep Total Protein Albumin [facility] 08/30/17 08/31/17 08/31/17 Unknown 05:40 05:40 WBC RBC 5.19 H Hgb Hct MCV 75 L MCH 23 L MCHC 31 L RDW 21.0 H [place] % (Auto) Eos % (Auto) [place] # Eos # Seg Neutrophils % Seg Neuts % (Manual) Lymphocytes % (Manual) Monocytes % (Manual) Eosinophils % (Manual) Basophils % (Manual) Seg Neutrophils # Man Lymphocytes # (Manual) Monocytes # (Manual) Eosinophils # (Manual) Basophils # (Manual) PT 32.1 H 34.9 H INR 2.87 H 3.19 H D-Dimer Heparin Anti-Xa Level POC ABG pH POC ABG pCO2 POC ABG pO2 VBG pH Potassium Chloride Carbon Dioxide BUN Glucose POC Glucose Lactic Acid Calcium Magnesium NT-Pro-B Natriuret Pep Total Protein Albumin TSH 08/31/17 08/31/17 08/31/17 05:40 08:24 11:47 WBC RBC Hgb Hct MCV MCH MCHC RDW [place] % (Auto) Eos % (Auto) [place] # Eos # Seg Neutrophils % Seg Neuts % (Manual) Lymphocytes % (Manual) Monocytes % (Manual) Eosinophils % (Manual) Basophils % (Manual) Seg Neutrophils # Man Lymphocytes # (Manual) Monocytes # (Manual) Eosinophils # (Manual) Basophils # (Manual) PT INR D-Dimer Heparin Anti-Xa Level POC ABG pH POC ABG pCO2 POC ABG pO2 VBG pH Potassium Chloride 92.9 L Carbon Dioxide 32 H BUN Glucose 152 H POC Glucose 109 H 157 H Lactic Acid Calcium Magnesium NT-Pro-B Natriuret Pep Total Protein Albumin TSH 09/01/17 09/01/17 09/01/17 05:36 08:39 11:41 WBC RBC Hgb Hct MCV MCH MCHC RDW [place] % (Auto) Eos % (Auto) [place] # Eos # Seg Neutrophils % Seg Neuts % (Manual) Lymphocytes % (Manual) Monocytes % (Manual) Eosinophils % (Manual) Basophils % (Manual) Seg Neutrophils # Man Lymphocytes # (Manual) Monocytes # (Manual) Eosinophils # (Manual) Basophils # (Manual) PT 36.2 H INR 3.34 H D-Dimer Heparin Anti-Xa Level POC ABG pH POC ABG pCO2 POC ABG pO2 VBG pH Potassium Chloride Carbon Dioxide BUN Glucose POC Glucose 124 H 167 H Lactic Acid Calcium Magnesium NT-Pro-B Natriuret Pep Total Protein Albumin TSH
--- NOTE | 2017-09-01 13:46 | Discharge Summary ---
Providers - Providers Date of Admission: 08/07/17 19:14 Attending physician: ALFRED GAFFNEY MD 08/08/17 01:28 Consult to Wound/ET Nurse [CONS] Routine Reason For Exam: wound eval, both legs, both feet, sacrum, groin 08/08/17 13:52 Physical Therapy Evaluation and Treat [CONS] Urgent Comment: PLEASE SEE PATIENT Reason For Exam: LYMPHEDEMA EVALUATION/LYMPHEDEMA PUMPS Mode of Transport?: Wheelchair Weight bearing status?: Full wt bearing Assistive devices?: Yes: BARIATRIC/[id number] 08/10/17 11:29 Consult to Physician [CONS] Routine Consulting Provider: SUSHANT HOOPER Reason For Exam: acute hypoxic resp failure/?OHS/RUSSEL/severe PHT Place consult to:: dr. hooper Notified:: answering service Phone number called:: Was contact made?: Yes If yes, spoke with:: christine Time called:: 11:53 08/11/17 14:15 Physical Therapy Evaluation and Treat [CONS] Routine Comment: obese Reason For Exam: weakness 08/14/17 11:11 PICC Line Insertion [Consult to PICC Line RN] [CONS] Urgent Reason For Exam: secure IV access Type Line:: PICC 08/14/17 20:57 Consult to Wound/ET Nurse [CONS] Urgent Reason For Exam: wound eval-havetoevaluatetotalskin [facility] bed 08/18/17 12:55 Consult to Dietitian/Nutrition [CONS] Routine Physician Instructions: Reason For Exam: Reason for Consult: Diet education 08/21/17 11:43 Physical Therapy Evaluation and Treat [CONS] Routine Comment: Reason For Exam: debility/morbid obesity Primary care physician: BRIAR WOOD SORTER Hospitalization Reason for admission: acute on chronic respiratory failure Condition: Stable Hospital course: 26 YO Male with Super Morbid Obeisty, DM, Asthma, Nicotine Dependence, Lymphedema, presents to ED for evaluation. Pt states that he has experienced shortness of breath, productive cough of clear sputum, subjective fever, and nasal congestion over the past 2 days with progressively worsening symptoms over that same time frame. Patient also is complaining of chills, as well as 78 pound weight gain in the past 2 week. Patient was seen at urgent care several days ago and was discharged with diagnosis of viral pharyngitis. Patient states the shortness of breath worsened over the last 24 hours. Pt seen and evaluted in ED and found to have fever to 101.7, Acute Respiratory Failure, as well as LLL Pneumonia. Pt treated with supplemental oxygen, nebulizer therapy , and pneumonia protocol. Pt admitted to medical floor. No reports of leg pain/ calf pain, prolonged travel/immobility, trauma, cancer, individual/family history of DVT/PE. Patient was treated with high flow oxygen and subsequently weaned down. He is scheduled for an outpatient sleep study which he knows that he must attend. Pulmonary was versed her mental health and with care for this patient. I also recommended outpatient wound care management. Patient was treated with anticoagulation when we thought he had PE due to his weight it could not be comfirmed. We will discontinue that at this time. Discharge diagnosis --Acute on chronic hypoxic, hypercapnic respiratory failure --obstructive sleep apnea/obesity hypoventilation syndrome/morbid obesity --Morbid obesity; BMI of 84;Counseling done advised exercise as tolerated and weight reduction --Chronic massive lymphedema; Continue wound care and lymphedema care inpatient and outpatient post discharge --Acute systolic congestive heart failure ; EF 40-45% with severe pulmonary hypertension --Severe pulmonary hypertension on echocardiogram --Left lower lobe pneumonia/atelectasis/community-acquired; - Disposition: DC/TX-06 HOME UND[facility] Time spent for discharge: 35 MINS Core Measure Documentation - Palliative Care Palliative Care/ Comfort Measures: Not Applicable - Core Measures Any of the following diagnoses?: none - VTE Discharge Requirements Deep Vein Thrombosis/Pulmonary Embolism Present on Admission: No Exam - Physical Exam Narrative exam: General appearance: Present: no acute distress, well-nourished, obese (morbidly obese) - EENT Eyes: Present: PERRL, EOM intact - Neck Neck: Present: supple, normal ROM - Respiratory Respiratory effort: normal Respiratory: bilateral: diminished, rhonchi, negative: rales, wheezing - Cardiovascular Rhythm: regular Heart Sounds: Present: S1 & S2 - Extremities Extremities: no ischemia, abnormal (chronic massive lymphedema) Extremity abnormal: edema - Abdominal General gastrointestinal: soft, non-tender, non-distended, normal bowel sounds - Integumentary Integumentary: Present: clear, warm - Psychiatric Psychiatric: appropriate mood/affect, cooperative - Neurologic Neurologic: CNII-XII intact, moves all extremities - Constitutional Vitals: Temp Pulse Resp BP Pulse Ox 97.8 F 65 22 126/79 96 09/01/17 09:44 09/01/17 09:44 09/01/17 10:00 09/01/17 09:44 09/01/17 09:44 Plan Activity: advance as tolerated, fall precautions Diet: low cholesterol, low salt Wound: per wound nurse instructions Special Instructions: restrict fluid intake to (1200CC/DAY), home oxygen via ( nasal cannula @ 2 liters per minute) Additional Instructions: FOLLOW AT WOUNDCARE CLINIC Follow up with: KACY ALLEN MD [Staff Physician] - 7 Days SALTY DA SILVA MD [Staff Physician] - 7 Days PRIMARY CARE, [Primary Care Provider] - 7 Days Forms: Warfarin Discharge Instruction Prescriptions: ALBUTEROL NEB's [Proventil 0.083% NEBS] 2.5 mg IH Q4HRT PRN #30 nebu PRN Reason: Shortness Of Breath Furosemide [Lasix] 20 mg PO QDAY #30 tablet Other Discharge Orders: Nebulizer (Amb) Location: Determined By Patient
[2017-09-01] MEDS ORDERED: COUMADIN PO SCH ×2 (17:00)
== END 2017-09-01 16:07 | disposition home health service (06) | DRG 871 ==
LOC: ED 16:13 → 3A 19:14 → CC1 08-14 12:36 → 4A 08-20 21:15
PROVIDERS: ADMIT Internal Medicine; ATTEND Internal Medicine
PROC: 4A033R1 Measurement of Arterial Saturation, Peripheral, Percutaneous Approach (ICD-10-PCS; principal; 2017-08-10)
PROC: 5A09357 Assistance with Respiratory Ventilation, Less than 24 Consecutive Hours, Continuous Positive Airway Pressure (ICD-10-PCS; 2017-08-10)
PROC: 5A09557 Assistance with Respiratory Ventilation, Greater than 96 Consecutive Hours, Continuous Positive Airway Pressure (ICD-10-PCS; 2017-08-13)
PROC: 02HV33Z Insertion of Infusion Device into Superior Vena Cava, Percutaneous Approach (ICD-10-PCS; 2017-08-14)
PROC: 5A09457 Assistance with Respiratory Ventilation, 24-96 Consecutive Hours, Continuous Positive Airway Pressure (ICD-10-PCS; 2017-08-25)
PROC: 5A09457 Assistance with Respiratory Ventilation, 24-96 Consecutive Hours, Continuous Positive Airway Pressure (ICD-10-PCS; 2017-08-30)
DX: A41.9 Sepsis, unspecified organism (principal); J18.1 Lobar pneumonia, unspecified organism; J96.22 Acute and chronic respiratory failure with hypercapnia; J96.21 Acute and chronic respiratory failure with hypoxia; I50.23 Acute on chronic systolic (congestive) heart failure; I89.0 Lymphedema, not elsewhere classified; I27.20 Pulmonary hypertension, unspecified; E87.2 Acidosis; E11.9 Type 2 diabetes mellitus without complications; G47.33 Obstructive sleep apnea (adult) (pediatric); I42.9 Cardiomyopathy, unspecified; J45.909 Unspecified asthma, uncomplicated; E66.01 Morbid (severe) obesity due to excess calories; Z68.45 Body mass index [BMI] 70 or greater, adult; Z71.3 Dietary counseling and surveillance; Z87.891 Personal history of nicotine dependence; Z82.49 Family history of ischemic heart disease and other diseases of the circulatory system; Z88.1 Allergy status to other antibiotic agents; Z88.2 Allergy status to sulfonamides; Z88.8 Allergy status to other drugs, medicaments and biological substances
CPT/HCPCS: 36415; 36600; 71045; 80048; 80053; 80074; 82140; 82803; 82805; 82962; 83735; 83880; 84439; 84443; 85007; 85014; 85018; 85025; 85027; 85049; 85379; 85520; 85610; 85730; 87040; 87086; 87400; 90686; 90732; 93005; 93010; 93306; 93308; 93321; 93325; 93970; 94640; 94660; 94760; 96361; 96374; 96375; 99291; J0456; J0696; J1644; J1650; J1815; J1940; J1956; J2405; J2920; J2930; J7030; J7040; J7050

== ENCOUNTER 2017-09-02 08:49 | Emergency (ER) | payer MEDICAID ==
[2017-09-02 09:14] VITALS: BP 104/74
== END 2017-09-02 09:33 | disposition left against medical advice (07) ==
LOC: ED 08:49
DX: Z53.21 Procedure and treatment not carried out due to patient leaving prior to being seen by health care provider (principal)

== ENCOUNTER 2017-11-04 16:55 | Day surgery (SDC) | payer MEDICAID ==
[2017-11-04 19:27] LABS: Basophils # (Auto) 0.1 K/mm3 (0.0-0.1); Basophils % (Auto) 0.5 % (0.0-1.8); Eosinophils # (Auto) 0.2 K/mm3 (0.0-0.4); Eosinophils % (Auto) 1.8 % (0.0-4.3); Hemoglobin 11.9 gm/dl (11.8-15.2); Lymphocytes # (Auto) 2.2 K/mm3 (1.2-5.4); Lymphocytes % (Auto) 17.6 % (13.4-35.0); Mean Corpuscular HGB Conc 33 % (32-34); Mean Corpuscular Hemoglobin 27 pg (28-32); Mean Corpuscular Volume 81 fl (84-94); Monocytes # (Auto) 0.7 K/mm3 (0.0-0.8); Monocytes % (Auto) 5.4 % (0.0-7.3); Platelet Count 293 K/mm3 (140-440); Red Blood Count 4.45 M/mm3 (3.65-5.03); Red Cell Distribution Width 18.5 % (13.2-15.2)
[2017-11-04 19:41] LABS: INR 1.01 (0.87-1.13)
[2017-11-04 19:42] LABS: Partial Thromboplastin Time 29.2 Sec. (24.2-36.6)
--- NOTE | 2017-11-04 20:02 | Anesthesia Consultation ---
Anesthesia Consult and Med Hx Date of service: 11/04/17 - Airway Anesthetic Teeth Evaluation: Good ROM Head & Neck: Inadequate Mental/Hyoid Distance: Inadequate Mallampati Class: Class IV Intubation Access Assessment: Difficult - Pre-Operative Health Status ASA Pre-Surgery Classification: ASA4, Emergency Proposed Anesthetic Plan: MAC - Pulmonary Hx Asthma: Yes SOB: Yes Home Oxygen Therapy: Yes Hx Pneumonia: Yes (in Febuary) - Cardiovascular System Hx Hypertension: Yes Hx Pacemaker: No Hx Internal Defibrillator: No Hx Peripheral Vascular Disease: Yes (lymphedema) - Other Systems Hx Obesity: Yes (Morbid obesity)
[2017-11-04] MEDS ORDERED: DIPRIVAN 10 MG/ML IV ONE ×2 (20:03)
--- NOTE | 2017-11-04 20:03 | Anesthesia Day of Surgery ---
Anesthesia Day of Surgery - Day of Surgery Patient Examined: Yes Patient H&P Reviewed: Yes Patient is NPO: Yes
[2017-11-04 20:05] LABS: Alanine Aminotransferase 14 units/L (7-56); Albumin 3.9 g/dL (3.9-5); BUN/Creatinine Ratio 10; Blood Urea Nitrogen 8 mg/dL (9-20); Calcium 9.3 mg/dL (8.4-10.2); Hemolysis Index 0
[2017-11-04] MEDS ORDERED: XYLOCAINE 2% UROJET ONE (21:06)
[2017-11-04] MEDS ORDERED: OMNIPAQUE (300 MG) IR ONE (21:13)
--- NOTE | 2017-11-04 21:35 | Short Stay Summary ---
Short Stay Documentation Date of service: 11/04/17 - History H&P: obtained from office - Allergies and Medications Current Medications: Allergies vancomycin Allergy (Verified 08/07/17 16:25) Hives Home Medications Medication Instructions Recorded Confirmed Last Taken Type Acetaminophen/Codeine [Tylenol 1 - 2 tab PO Q6H PRN 11/04/17 11/04/17 Unknown History /Codeine # 3 tab] Furosemide [Lasix TAB] 40 mg PO BID 11/04/17 11/04/17 Unknown History Potassium Chloride [Klor-Con M10] 10 meq PO QDAY 11/04/17 11/04/17 Unknown History buPROPion SR [Wellbutrin Sr] 150 mg PO BID 11/04/17 11/04/17 Unknown History - Brief post op/procedure progress note Date of procedure: 11/04/17 Pre-op diagnosis: urethral stricture Post-op diagnosis: same Procedure: cysto, urethral dialtion, cystogram (silasitic catheter_ Anesthesia: GETA Surgeon: AUBREY GIRALDO Estimated blood loss: minimal Condition: stable - Hospital course Hospital course: [facility] on chart - Disposition Condition at discharge: Fair Disposition: DC-01 TO HOME OR SELFCARE Short Stay Discharge Plan Follow up with: PRIMARY CARE, [Primary Care Provider] - 7 Days
[2017-11-04] MEDS: DILAUDID IV PRN ×2 (21:40→21:55)
[2017-11-04] MEDS ORDERED: DILAUDID ONE (21:41)
--- NOTE | 2017-11-04 21:44 | Post Anesthesia Evaluation ---
- Post Anesthesia Evaluation Patient Participated: Yes Airway Patent: Yes Stable Respiratory Function: Yes Nausea/Vomiting: No Temp > 96.8F: Yes Pain Manageable: Yes Adequeate Hydration: Yes Anesthesia Complications: No
[2017-11-04] MEDS ORDERED: NORCO 5/325 PO PRN (21:56)
[2017-11-04] MEDS ORDERED: ANCEF/STERILE WATER 2 GM/20 ML 2 GM/20 ML SYRINGE IV NR (22:00)
--- NOTE | 2017-11-04 22:11 | Operative Report ---
PREOPERATIVE DIAGNOSIS: Dense urethral stricture. POSTOPERATIVE DIAGNOSIS: Dense urethral stricture. PROCEDURES: Cystoscopy, urethral dilation, cystogram. SURGEON: Onesimo Gay M.D. ANESTHESIA: General. ANESTHESIOLOGIST: Dr. Prakash Vallejo. ESTIMATED BLOOD LOSS: Minimal. FLUIDS: Crystalloid. COMPLICATIONS: No complications. INDICATIONS: This patient is a 27-year-old gentleman was undergoing urodynamic testing in the office. A catheter could not be placed by the urodynamics tech. I attempted on several occasions and tried flexible cystoscopy in the office; however, due to the patient's size and dense stricture, I was unable to get the catheter in. Due to this dense stricture, I was concerned the patient will go into urinary retention. He subsequently presented to the hospital. He has a history of obesity. DESCRIPTION OF PROCEDURE: The patient was taken to the operative suite and placed in a supine position. Due to his size, we were unable to place him in a dorsolithotomy position. Uro-Jet and IV sedation was performed. Ureteroscopy was performed with rigid scope, 0.035 Glidewire was advanced through this dense stricture. At this point, I used blue dilators and sequential dilation to 20-Cambodian was performed. I was then able to negotiate an 18-Cambodian Silastic catheter around the wire. Cystogram confirmed adequate placement. The patient was then taken to the recovery room in stable condition. [facility] [place] JOB# [id number] LAITH/REYNOLD
--- NOTE | 2017-11-05 07:47 | Fluoroscopy Report ---
FLUOROSCOPY CYSTOGRAM STATIC, ONE VIEW History: Urethral stricture. Findings: Fluoroscopy was provided by radiology for urology. 3 fluoroscopic images were captured. There is partial distention of the bladder with contrast agent which demonstrates no gross abnormality. Urethral dilatation was performed per the operative notes. Impression: Unremarkable bladder.
== END 2017-11-04 16:56 | disposition home or self-care (01) ==
LOC: OR 16:55 → ED 16:55 → OR 16:55
PROVIDERS: ATTEND Emergency Medicine
DX: R33.9 Retention of urine, unspecified (principal); I10 Essential (primary) hypertension; E66.01 Morbid (severe) obesity due to excess calories; J45.909 Unspecified asthma, uncomplicated; Z99.81 Dependence on supplemental oxygen; Z79.01 Long term (current) use of anticoagulants; Z88.1 Allergy status to other antibiotic agents; Z91.040 Latex allergy status
CPT/HCPCS: 36415; 52344; 74430; 80053; 85025; 85610; 85730; C1726; C1758; C1769; J1170; J2704; Q9967

== ENCOUNTER 2018-02-24 12:53 | Outpatient (CLI) | payer MEDICAID ==
[2018-02-24 13:41] LABS: BUN/Creatinine Ratio 18; Blood Urea Nitrogen 14 mg/dL (9-20); Calcium 9.4 mg/dL (8.4-10.2); Hemolysis Index 6
== END 2018-02-24 12:54 | disposition home or self-care (01) ==
LOC: LAB 12:53
PROVIDERS: ATTEND Internal Medicine Critical Care Medicine
DX: I27.20 Pulmonary hypertension, unspecified (principal); I10 Essential (primary) hypertension; I73.9 Peripheral vascular disease, unspecified; J45.909 Unspecified asthma, uncomplicated; E66.9 Obesity, unspecified; Z88.1 Allergy status to other antibiotic agents
CPT/HCPCS: 36415; 80048

== ENCOUNTER 2018-10-20 10:16 | Inpatient (IN) | payer MEDICAID, OTHER ==
[2018-10-20] MEDS ORDERED: ZOFRAN IV ONE (10:52)
[2018-10-20] MEDS ORDERED: DUONEB *Not for PRN Use IH ONE (10:52)
[2018-10-20 11:19] LABS: Basophils % (Auto) 0.4 % (0.0-1.8); Eosinophils # (Auto) 0.1 K/mm3 (0.0-0.4); Eosinophils % (Auto) 1.5 % (0.0-4.3); Lymphocytes # (Auto) 0.7 K/mm3 (1.2-5.4); Lymphocytes % (Auto) 6.9 % (13.4-35.0); Mean Corpuscular HGB Conc 30 % (32-34); Mean Corpuscular Volume 74 fl (84-94); Monocytes # (Auto) 0.6 K/mm3 (0.0-0.8); Monocytes % (Auto) 6.2 % (0.0-7.3); Platelet Count 306 K/mm3 (140-440)
[2018-10-20 11:21] LABS: Red Cell Distribution Width 20.9 % (13.2-15.2)
[2018-10-20 11:24] LABS: Hematocrit 39.3 % (35.5-45.6); Hemoglobin 11.8 gm/dl (11.8-15.2)
--- NOTE | 2018-10-20 11:25 | Emergency Department Report ---
HPI - General Chief Complaint: Abdominal Pain Time Seen by Provider: 10/20/18 10:28 - HPI HPI: 28-year-old male presents to the emergency department with a complaint of chest pain, shortness of breath, abdominal pain, nausea and vomiting. The p atient is having intermittent left-sided chest pain with the shortness of breath over the past few days. This morning he started having the midabdominal pain with nausea and vomiting. He has a past medical history of CHF, hypertension and bilateral lower extremity lymphedema. He is a tobacco smoker. He is oxygen dependent at night. No recent travel or sick contacts at home. He did not take anything for his symptoms prior to arrival. His primary care physician is Dr. Sanchez Duff. For cardiology, the patient follows with [facility]. ED Past Medical Hx - Past Medical History Previous Medical History?: Yes Hx Hypertension: Yes Hx Congestive Heart Failure: Yes Hx Diabetes: Yes (possible borderline DM) Hx Deep Vein Thrombosis: No Hx Psychiatric Treatment: Yes (Depression) Hx Asthma: Yes Additional medical history: morbidly obese, HOME OXYGEN @ 2LPM NASAL CANULA - Surgical History Hx Pacemaker: No Hx Internal Defibrillator: No - Social History Smoking Status: Current Every Day Smoker Substance Use Type: None - Medications Home Medications: Home Medications Medication Instructions Recorded Confirmed Last Taken Type Furosemide [Lasix TAB] 40 mg PO BID 11/04/17 10/20/18 Unknown History Potassium Chloride [Klor-Con M10] 10 meq PO QDAY 11/04/17 10/20/18 Unknown History buPROPion SR [Wellbutrin Sr] 150 mg PO BID 11/04/17 10/20/18 Unknown History ED Review of Systems ROS: Stated complaint: ABDOMINAL PAIN Other details as noted in HPI Comment: All other systems reviewed and negative Constitutional: denies: chills, fever Eyes: denies: eye pain, vision change ENT: denies: ear pain, throat pain Respiratory: orthopnea, shortness of breath Cardiovascular: chest pain. denies: palpitations Gastrointestinal: abdominal pain, nausea, vomiting Musculoskeletal: denies: back pain, arthralgia Skin: denies: rash, lesions Neurological: denies: headache, weakness Physical Exam - Physical Exam Vital Signs: Vital Signs 10/20/18 10:25 Temperature 97.3 F L Pulse Rate 84 Respiratory 20 Rate Blood Pressure 122/61 [Left] O2 Sat by Pulse 98 Oximetry Physical Exam: GENERAL: The patient is well-developed well-nourished. HEENT: Normocephalic. Atraumatic. Patient has moist mucous membranes. EYES: Extraocular motions are intact. Pupils are equal and reactive to light bilaterally. NECK: Supple. Trachea is midline. CHEST/LUNGS: Clear to auscultation. There is no respiratory distress noted. HEART/CARDIOVASCULAR: Regular. There is no tachycardia. There is no obvious murmur. ABDOMEN: Abdomen is soft. There is some mid abdominal tenderness to palpation. No guarding. Patient has normal bowel sounds. Morbidly obese habitus. SKIN: Patient has significant bilateral lower extremity lymphedema and/or swelling. NEURO: The patient is awake, alert, and oriented. The patient is cooperative. The patient has no focal neurologic deficits. The patient has normal speech. MUSCULOSKELETAL: There is no tenderness or deformity. There is no limitation range of motion. There is no evidence of acute injury. ED Course Vital Signs 10/20/18 10:25 Temperature 97.3 F L Pulse Rate 84 Respiratory 20 Rate Blood Pressure 122/61 [Left] O2 Sat by Pulse 98 Oximetry ED Medical Decision Making - Lab Data Result diagrams: 10/20/18 11:00 10/20/18 11:00 - EKG Data -: EKG Interpreted by Nd EKG shows normal: sinus rhythm, axis (left axis deviation), intervals, QRS complexes (nonspecific intraventricular conduction delay), ST-T waves Rate: normal - EKG Data When compared to previous EKG there are: no significant change Interpretation: unchanged when compared t (09/02/17) - Radiology Data Radiology results: image reviewed interpreted by me: Chest x-ray does not show any pneumothorax, pleural effusion, pneumonia or obvious focal consolidation. Abdominal x-ray shows nonspecific nonobstructive bowel gas. - Medical Decision Making This patient presents with acute on chronic shortness of breath and chest pain with some more recent abdominal pain, nausea and vomiting, and diarrhea. Patient is significantly morbidly obese with significant edema and overall appears debilitated. EKG did not show any signs of ST elevation AR or dysrhythmia. Chest x-ray did not show any pleural effusions, pneumothorax, pneu monia, focal consolidations, or any other acute process. Abdominal x-rays nonspecific nausea and bowel gas. Labs are mostly unremarkable thus far. The patient continues to have chest pain and has multiple comorbidities that are concerning and the patient will be admitted to the hospital for risk stratification, further evaluation and treatment. The patient was accepted for admission by the hospitalist service. - Differential Diagnosis AR, CHF, Colitis, Pneumonia Critical Care Time: No Critical care attestation.: If time is entered above; I have spent that time in minutes in the direct care of this critically ill patient, excluding procedure time. ED Disposition Clinical Impression: Acute chest pain, Lymphedema, Obesity hypoventilation syndrome Dyspnea Qualifiers: Dyspnea type: shortness of breath Qualified Code(s): R06.02 - Shortness of breath; R06.00 - Dyspnea, unspecified; R06.01 - Orthopnea Abdominal pain Qualifiers: Abdominal location: generalized Qualified Code(s): R10.84 - Generalized abdominal pain Disposition: OP ADMIT IP TO THIS HOSP Is pt being admited?: Yes Condition: Fair Time of Disposition: 15:45
[2018-10-20 11:42] LABS: Alanine Aminotransferase 16 units/L (7-56); Albumin 3.8 g/dL (3.9-5); BUN/Creatinine Ratio 14; Blood Urea Nitrogen 13 mg/dL (9-20); Calcium 8.9 mg/dL (8.4-10.2); Hemolysis Index 13
--- NOTE | 2018-10-20 12:10 | XRay Report ---
ABDOMEN, 2 views: History: Abdominal pain. There is no evidence of free air beneath the diaphragms. The gas pattern within the abdomen is unremarkable. There is no evidence of bowel dilatation, significant air-fluid levels, or pathologic calcifications. Organ shadows are unremarkable. IMPRESSION: Unremarkable abdomen.
--- NOTE | 2018-10-20 12:13 | XRay Report ---
ROUTINE CHEST, TWO VIEWS: HISTORY: chest pain. Borderline to mild cardiomegaly and pulmonary venous congestion are suspected. The lungs are clear. No evidence for pneumonia, CHF or pneumothorax. IMPRESSION: Borderline heart size and pulmonary vessels. Lungs clear.
--- NOTE | 2018-10-20 14:21 | History and Physical Report ---
History of Present Illness Chief complaint: My chest and stomach hurts History of present illness: 28 YO Male with Super Morbid Obesity, CHF, Chronic respiratory Failure on 2L Home Oxygen, Obesity Hypoventilation, DM, Asthma, Nicotine Dependence, Lymphedema, presents to ED for evaluation. Pt states that he has experienced shortness of breath, abdominal pain, nausea, multiple episodes of vomiting, multiple loose stools, and pain in his chest. Pt states that symptoms began after eating some chicken that was prepared by his sister. Pt states that his chest pain is 5/10, intermittent, localized to the left chest, associated with shortness of breath, nonradiating, not worsened with exertion, not relieved with rest, and is associated with meals. Due to patient body habitus, the area that the patient localized on his left chest is the left hypochondriac region. Pt denies fever, chills, palpitations, productive cough, skin rash, or recent ill contacts. EMS notified, and upon arrival patient transported to [facility] ED. Pt seen and evaluated and found to have LLE Cellulitis, Obesity Hypoventilation, as well as symptoms consistent with CHF as well as GERD. Cardiology consulted in ED. Prior admission on 08/07/17 reviewed. All listed medication reconciled at time of admission. PCP:Dr. Sanchez Duff. cardiology: [facility]. Past History Past Medical History: diabetes, heart failure, hypertension, other (MO, Obesity Hypoventilation Syndrome) Past Surgical History: No surgical history, Other (reviewed) Social history: single, smoking Family history: diabetes, hypertension Medications and Allergies Allergies Allergy/AdvReac Type Severity Reaction Status Date / Time latex Allergy Unknown Verified 10/20/18 10:36 vancomycin Allergy Hives Verified 08/07/17 16:25 Home Medications Medication Instructions Recorded Confirmed Last Taken Type Furosemide [Lasix TAB] 40 mg PO BID 11/04/17 10/20/18 Unknown History Potassium Chloride [Klor-Con M10] 10 meq PO QDAY 11/04/17 10/20/18 Unknown History buPROPion SR [Wellbutrin Sr] 150 mg PO BID 11/04/17 10/20/18 Unknown History Review of Systems Constitutional: no weight loss, no weight gain, no fever, no chills Ears, nose, mouth and throat: no ear pain, no ear discharge, no tinnitis, no d ecreased hearing, no nose pain Cardiovascular: chest pain, no orthopnea, no palpitations Respiratory: no cough, no cough with sputum, no excessive sputum, no hemoptysis Gastrointestinal: abdominal pain, nausea, vomiting, diarrhea, no hematemesis, no coffee ground emesis, no BRBPR, no melena, no hematochezia Genitourinary Male: no hematuria, no flank pain, no discharge, no urinary frequency Rectal: no pain, no incontinence, no bleeding Integumentary: no rash, no pruritis, no redness, no sores, no wounds Neurological: no paralysis, no weakness, no parathesias, no numbness, no tingling Psychiatric: no memory loss, no change in sleep habits, no sleep disturbances, no insomnia, no hypersomnia Endocrine: no cold intolerance, no heat intolerance, no polyphagia, no excessive thirst, no polydipsia, no polyuria, no nocturia Hematologic/Lymphatic: lymphedema, no easy bruising, no easy bleeding Allergic/Immunologic: no urticaria, no allergic rhinitis, no wheezing, no persistent infections, no anaphylaxis Exam - Constitutional Vitals: Temp Pulse Resp BP Pulse Ox 98 F 98 H 18 102/52 98 10/20/18 12:00 10/20/18 12:00 10/20/18 12:00 10/20/18 12:00 10/20/18 12:00 General appearance: Present: mild distress, obese - EENT Eyes: Present: PERRL ENT: hearing intact, clear oral mucosa - Neck Neck: Present: supple, normal ROM - Respiratory Respiratory effort: normal Respiratory: bilateral: CTA - Cardiovascular Heart Sounds: Present: S1 & S2. Absent: rub, click - Extremities Extremity abnormal: edema Peripheral Pulses: within normal limits - Abdominal General gastrointestinal: Present: soft, tender, non-distended, normal bowel sounds. Absent: mass, hernia Male genitourinary: Present: normal - Integumentary Integumentary: Present: clear, dry, erythema - Musculoskeletal Musculoskeletal: generalized weakness - Psychiatric Psychiatric: appropriate mood/affect, intact judgment & insight - Neurologic Neurologic: CNII-XII intact, moves all extremities Results - Labs CBC & Chem 7: 10/20/18 11:00 10/20/18 11:00 Labs: Abnormal lab results 10/20/18 10/20/18 Range/Units 11:00 11:00 RBC 5.30 H (3.65-5.03) M/mm3 MCV 74 L (84-94) fl MCH 22 L (28-32) pg MCHC 30 L (32-34) % RDW 20.9 H (13.2-15.2) % Lymph % (Auto) 6.9 L (13.4-35.0) % Lymph # 0.7 L (1.2-5.4) K/mm3 Seg Neutrophils % 85.0 H (40.0-70.0) % Seg Neutrophils # 8.2 H (1.8-7.7) K/mm3 Carbon Dioxide 31 H (22-30) mmol/L Glucose 158 H (75-100) mg/dL Albumin 3.8 L (3.9-5) g/dL Assessment and Plan - Patient Problems (1) CHF (congestive heart failure) Current Visit: Yes Status: Acute Qualifiers: Heart failure type: systolic Heart failure chronicity: acute on chronic Qualified Code(s): I50.23 - Acute on chronic systolic (congestive) heart failure Plan to address problem: Admit to telemetry, cardiology consulted, strict I/O, daily weight, echo, monitor uop q shift, pulse oximetry, thyroid panel (2) Cellulitis of left lower extremity Current Visit: Yes Status: Acute Plan to address problem: IV antibiotic therapy, pain control, BLE duplex, (3) Pulmonary hypertension Current Visit: Yes Status: Acute Plan to address problem: Pulmonary consulted, pulse oximetry, chest x ray, D dimer, CTA chest, supplemental oxygen, NIPPV as clinically indicated. (4) Obesity hypoventilation syndrome Current Visit: Yes Status: Acute Plan to address problem: Supplemental oxygen, NIPPV as clinically indicated, chest x ray, outpatient bariatric surgery, (5) DVT prophylaxis Current Visit: Yes Status: Acute Plan to address problem: SCD to BLE while in bed, prophylactic lovenox
[2018-10-20] MEDS ORDERED: ZOFRAN IV PRN (14:50)
[2018-10-20] MEDS ORDERED: TYLENOL PO PRN (14:50)
[2018-10-20] MEDS ORDERED: PROVENTIL IH PRN (14:50)
[2018-10-20] MEDS ORDERED: NITROSTAT SL PRN (14:50)
[2018-10-20] MEDS ORDERED: BABY ASPIRIN PO STA (14:50)
[2018-10-20] MEDS ORDERED: SODIUM CHLORIDE FLUSH SYRINGE 10 ML IV PRN ×2 (14:50)
[2018-10-20 16:35] LABS: Free T4 (Free Thyroxine) 0.91 ng/dL (0.76-1.46)
[2018-10-20] MEDS ORDERED: LASIX ONE (18:33)
[2018-10-20] MEDS ORDERED: ROCEPHIN/NS 1 GM/50 ML 1 GM/50 ML BAG IV ONE (18:38)
[2018-10-20] MEDS: ROCEPHIN/NS 1 GM/50 ML 1 GM/50 ML BAG IV SCH (18:41)
[2018-10-20] MEDS: LASIX IV SCH (18:41)
[2018-10-20] MEDS: LOVENOX SUB-Q SCH (23:33)
[2018-10-20] MEDS: WELLBUTRIN SR PO SCH (23:33)
[2018-10-20] MEDS: SODIUM CHLORIDE FLUSH SYRINGE 10 ML IV SCH (23:34)
[2018-10-21 05:31] LABS: Basophils % (Auto) 0.3 % (0.0-1.8); Eosinophils # (Auto) 0.1 K/mm3 (0.0-0.4); Eosinophils % (Auto) 1.1 % (0.0-4.3); Hematocrit 33.5 % (35.5-45.6); Hemoglobin 10.3 gm/dl (11.8-15.2); Lymphocytes # (Auto) 1.3 K/mm3 (1.2-5.4); Lymphocytes % (Auto) 16.4 % (13.4-35.0); Mean Corpuscular HGB Conc 31 % (32-34); Mean Corpuscular Volume 73 fl (84-94); Monocytes # (Auto) 0.6 K/mm3 (0.0-0.8); Monocytes % (Auto) 7.4 % (0.0-7.3); Platelet Count 261 K/mm3 (140-440)
[2018-10-21 05:32] LABS: Red Cell Distribution Width 20.4 % (13.2-15.2)
[2018-10-21 05:49] LABS: BUN/Creatinine Ratio 12; Blood Urea Nitrogen 12 mg/dL (9-20); Calcium 8.5 mg/dL (8.4-10.2); Hemolysis Index 2
[2018-10-21] MEDS: LASIX IV SCH ×2 (06:00→22:01)
--- NOTE | 2018-10-21 10:33 | Consultation ---
History of Present Illness Consult date: 10/21/18 Requesting physician: TATUM MULLINS Consult reason: congestive heart failure History of present illness: The pt is a 28 YO male with a past medical history of morbid obesity, hypertension, HF, bilateral lower extremity lymphedema, pulmonary HTN, tobacco smoker, oxygen dependent at night. He has been seen in our office in the past by Dr. Jimenez. His PCP is Dr. Duff and kickboxing instructor is Dr. Harrison. He presented with complaints of chest pain, shortness of breath, abdominal pain, nausea and vomiting. He reports having intermittent left-sided chest pain with the shortness of breath over the past few days. Yesterday morning he started having the midabdominal pain with nausea and vomiting. Echo done 08/2017 showed EF 40-45%, pulmonary HTN with RVSP 56mmHg. Past History Past Medical History: heart failure, hypertension, other (MO, Obesity Hypoventilation Syndrome) Past Surgical History: No surgical history Social history: single, smoking Family history: diabetes, hypertension Medications and Allergies Allergies Allergy/AdvReac Type Severity Reaction Status Date / Time latex Allergy Unknown Verified 10/20/18 10:36 vancomycin Allergy Hives Verified 08/07/17 16:25 Home Medications Medication Instructions Recorded Confirmed Last Taken Type Furosemide [Lasix TAB] 40 mg PO BID 11/04/17 10/20/18 Unknown History Potassium Chloride [Klor-Con M10] 10 meq PO QDAY 11/04/17 10/20/18 Unknown History buPROPion SR [Wellbutrin Sr] 150 mg PO BID 11/04/17 10/20/18 Unknown History Active Meds: Active Medications Acetaminophen (Tylenol) 650 mg PO Q4H PRN PRN Reason: Pain MILD(1-3)/Fever >100.5/ARENAS Albuterol (Proventil) 2.5 mg IH Q4HRT PRN PRN Reason: Shortness Of Breath Bupropion HCl (Wellbutrin Sr) 150 mg PO BID PENDING SALE TO [facility] Last Admin: 10/20/18 23:33 Dose: 150 mg Documented by: Enoxaparin Sodium (Lovenox) 40 mg SUB-Q QDAY@2200 [facility]END[facility] TO [facility] Last Admin: 10/20/18 23:33 Dose: 40 mg Documented by: Furosemide (Lasix) 40 mg IV 0600,1800 PEND[facility] TO [facility] Last Admin: 10/21/18 06:00 Dose: 40 mg Documented by: Ceftriaxone Sodium (Rocephin/Ns 1 Gm/50 Ml) 1 gm in 50 mls @ 100 mls/hr IV Q 24HR PENDING SALE TO [facility]; Protocol Last Admin: 10/20/18 18:41 Dose: 100 mls/hr Documented by: Nitroglycerin (Nitrostat) 0.4 mg SL Q5M PRN PRN Reason: Chest Pain Ondansetron HCl (Zofran) 4 mg IV Q8H PRN PRN Reason: Nausea And Vomiting Pantoprazole Sodium (Protonix) 20 mg PO QDAY [facility] Potassium Chloride (K-Dur) 10 meq PO QDAY [facility]END[facility] TO [facility] Sodium Chloride (Sodium Chloride Flush Syringe 10 Ml) 10 ml IV BID PENDING SALE TO [facility] Last Admin: 10/20/18 23:34 Dose: 10 ml Documented by: Sodium Chloride (Sodium Chloride Flush Syringe 10 Ml) 10 ml IV PRN PRN PRN Reason: LINE FLUSH Review of Systems Constitutional: no fever, no chills, no sweats Ears, nose, mouth and throat: no ear pain, no nose pain, no sinus pressure, no sinus pain Cardiovascular: chest pain, orthopnea, shortness of breath, dyspnea on exertion, leg edema, decreased exercise tolerance Respiratory: shortness of breath, dyspnea on exertion, no cough, no congestion, no wheezing, no pain on inspiration Gastrointestinal: abdominal pain, nausea, vomiting, no diarrhea, no constipation, no change in bowel habits Genitourinary Male: no dysuria, no hematuria, no flank pain, no discharge, no urinary frequency, no urinary hesitancy Musculoskeletal: no neck stiffness, no neck pain, no shooting arm pain, no arm numbness/tingling, no low back pain, no shooting leg pain Integumentary: no rash, no pruritis, no redness, no sores, no wounds Neurological: no head injury, no paralysis, no weakness, no parathesias, no numbness, no tingling, no seizures, no syncope Psychiatric: no anxiety Endocrine: no cold intolerance, no heat intolerance Hematologic/Lymphatic: no easy bruising, no easy bleeding Allergic/Immunologic: no urticaria, no wheezing Physical Examination Vital Signs Temp Pulse Resp BP Pulse Ox 97.3 F L 84 20 122/61 98 10/20/18 10:25 10/20/18 10:25 10/20/18 10:25 10/20/18 10:25 10/20/18 10:25 General appearance: no acute distress HEENT: Positive: PERRL, Normocephaly, Mucus Membranes Moist Neck: Positive: neck supple, trachea midline Cardiac: Positive: Reg Rate and Rhythm, S1/S2 Lungs: Positive: Decreased Breath Sounds Neuro: Positive: Grossly Intact Abdomen: Positive: Soft. Negative: Tender Musculoskeletal: No Pain Extremities: Present: +3 Edema (BLE lymphedema) Results 10/21/18 04:48 10/21/18 04:48 Cardiac Enzymes 10/20/18 Range/Units 11:00 AST 15 (5-40) units/L CBC 10/20/18 10/21/18 Range/Units 11:00 04:48 WBC 9.7 7.7 (4.5-11.0) K/mm3 RBC 5.30 H 4.60 (3.65-5.03) M/mm3 Hgb 11.8 10.3 L (11.8-15.2) gm/dl Hct 39.3 33.5 L (35.5-45.6) % Plt Count 306 261 (140-440) K/mm3 Lymph # 0.7 L 1.3 (1.2-5.4) K/mm3 [place] # 0.6 0.6 (0.0-0.8) K/mm3 Eos # 0.1 0.1 (0.0-0.4) K/mm3 Baso # 0.0 0.0 (0.0-0.1) K/mm3 Comprehensive Metabolic Panel 10/20/18 10/21/18 Range/Units 11:00 04:48 Sodium 141 138 (137-145) mmol/L Potassium 4.3 3.8 (3.6-5.0) mmol/L Chloride 98.5 96.5 L (98-107) mmol/L Carbon Dioxide 31 H 31 H (22-30) mmol/L BUN 13 12 (9-20) mg/dL Creatinine 0.9 1.0 (0.8-1.5) mg/dL Glucose 158 H 125 H (75-100) mg/dL Calcium 8.9 8.5 (8.4-10.2) mg/dL AST 15 (5-40) units/L ALT 16 (7-56) units/L Alkaline Phosphatase 110 (35-129) units/L Total Protein 7.3 (6.3-8.2) g/dL Albumin 3.8 L (3.9-5) g/dL - Imaging and Cardiology Echo: report reviewed ( 08/2017 showed EF 40-45%, pulmonary HTN with RVSP 56mmHg. ) EKG: report reviewed, image reviewed EKG interpretations - Telemetry EKG Rhythm: Sinus Rhythm - EKG Sinus rhythms and dysrhythmias: sinus rhythm Assessment and Plan Agree with present cardiac management. F/u echo. AMI ruled out. Pt's weight pr ecludes any additional cardiac testing. The patient has been seen in conjunction with Dr. Wayne Hawk who agrees with the assessment and plan of care. - Patient Problems (1) Dyspnea Current Visit: Yes Status: Acute Qualifiers: Dyspnea type: shortness of breath Qualified Code(s): R06.02 - Shortness of breath; R06.00 - Dyspnea, unspecified; R06.01 - Orthopnea (2) Chest pain Current Visit: Yes Status: Acute (3) Morbid obesity Current Visit: Yes Status: Acute (4) LV dysfunction Current Visit: Yes Status: Chronic (5) Lymphedema Current Visit: Yes Status: Chronic (6) Obesity hypoventilation syndrome Current Visit: Yes Status: Chronic (7) Pulmonary hypertension Current Visit: Yes Status: Chronic
[2018-10-21] MEDS: K-DUR PO SCH (11:02)
--- NOTE | 2018-10-21 11:02 | Progress Note ---
Assessment and Plan Assessment and plan: 28M Super morbid obesity, CHF, chronic respiratory failure on 2 L of oxygen at all times, obesity hypoventilation, diabetes, asthma, nicotine dependence, lymphedema The patient presents to the hospital with vomiting and loose stools and chest pain, sob x [address] 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 Preventive health counseling, time spent 16 minutes DVT prophylaxis with Lovenox History Interval history: Review of systems Constitutional: No fevers, no malaise, no joint pains CVS: No chest pain, no orthopnea, no dyspnea on exertion, no pedal edema GI: No abdominal pain, no diarrhea, no vomiting, no constipation Respiratory: Shortness of breath is improving Hospitalist Physical - Physical exam Narrative exam: General.: Appears well, no distress, nontoxic HEENT: Moist mucous membranes, extraocular muscles intact, no lymphadenopathy Neck: supple Cardiac: S1-S2 heard Lungs: Diminished at bases Abdomen: soft , nontender, nondistended, bowel sounds positive Extremities: Chronic lymphedema of bilateral lower extremities., There is some erythema consistent with stasis dermatitis Skin: no rash or lesions Neurologic: no gross focal deficits Psych: calm, and cooperative - Constitutional Vitals: Temp Pulse Resp BP Pulse Ox 98.5 F 80 20 99/55 97 10/21/18 09:10 10/21/18 09:10 10/21/18 09:10 10/21/18 09:10 10/21/18 09:10 General appearance: Present: no acute distress Results - Labs CBC & Chem 7: 10/21/18 04:48 10/21/18 04:48 Labs: Laboratory Last Values WBC 7.7 K/mm3 (4.5-11.0) 10/21/18 04:48 RBC 4.60 M/mm3 (3.65-5.03) 10/21/18 04:48 Hgb 10.3 gm/dl (11.8-15.2) L 10/21/18 04:48 Hct 33.5 % (35.5-45.6) L 10/21/18 04:48 MCV 73 fl (84-94) L 10/21/18 04:48 MCH 22 pg (28-32) L 10/21/18 04:48 MCHC 31 % (32-34) L 10/21/18 04:48 RDW 20.4 % (13.2-15.2) H 10/21/18 04:48 Plt Count 261 K/mm3 (140-440) 10/21/18 04:48 Lymph % (Auto) 16.4 % (13.4-35.0) 10/21/18 04:48 [place] % (Auto) 7.4 % (0.0-7.3) H 10/21/18 04:48 Eos % (Auto) 1.1 % (0.0-4.3) 10/21/18 04:48 Baso % (Auto) 0.3 % (0.0-1.8) 10/21/18 04:48 Lymph # 1.3 K/mm3 (1.2-5.4) 10/21/18 04:48 [place] # 0.6 K/mm3 (0.0-0.8) 10/21/18 04:48 Eos # 0.1 K/mm3 (0.0-0.4) 10/21/18 04:48 Baso # 0.0 K/mm3 (0.0-0.1) 10/21/18 04:48 Seg Neutrophils % 74.8 % (40.0-70.0) H 10/21/18 04:48 Seg Neutrophils # 5.8 K/mm3 (1.8-7.7) 10/21/18 04:48 D-Dimer 451.58 ng/mlDDU (0-234) H 10/20/18 14:56 Sodium 138 mmol/L (137-145) 10/21/18 04:48 Potassium 3.8 mmol/L (3.6-5.0) 10/21/18 04:48 Chloride 96.5 mmol/L (98-107) L 10/21/18 04:48 Carbon Dioxide 31 mmol/L (22-30) H 10/21/18 04:48 Anion Gap 14 mmol/L 10/21/18 04:48 BUN 12 mg/dL (9-20) 10/21/18 04:48 Creatinine 1.0 mg/dL (0.8-1.5) 10/21/18 04:48 Estimated GFR > 60 ml/min 10/21/18 04:48 BUN/Creatinine Ratio 12 % 10/21/18 04:48 Glucose 125 mg/dL (75-100) H 10/21/18 04:48 Lactic Acid 0.70 mmol/L (0.7-2.0) 10/21/18 04:48 Calcium 8.5 mg/dL (8.4-10.2) 10/21/18 04:48 Total Bilirubin 0.50 mg/dL (0.1-1.2) 10/20/18 11:00 AST 15 units/L (5-40) 10/20/18 11:00 ALT 16 units/L (7-56) 10/20/18 11:00 Alkaline Phosphatase 110 units/L (35-129) 10/20/18 11:00 Troponin T < 0.010 ng/mL (0.00-0.029) 10/20/18 21:16 NT-Pro-B Natriuret Pep 124.9 pg/mL (0-450) 10/20/18 11:00 Total Protein 7.3 g/dL (6.3-8.2) 10/20/18 11:00 Albumin 3.8 g/dL (3.9-5) L 10/20/18 11:00 Albumin/Globulin Ratio 1.1 % 10/20/18 11:00 Lipase 14 units/L (13-60) 10/20/18 11:00 TSH 3.120 mlU/mL (0.270-4.200) 10/20/18 15:30 Free T4 0.91 ng/dL (0.76-1.46) 10/20/18 15:30 Active Medications - Current Medications Current Medications: Generic Name Dose Route Start Last Admin Trade Name Freq PRN Reason Stop Dose Admin Acetaminophen 650 mg 10/20/18 14:50 Tylenol PO Q4H PRN Pain MILD(1-3)/Fever >100.5/ARENAS Albuterol 2.5 mg 10/20/18 14:50 Proventil IH Q4HRT PRN Shortness Of Breath Bupropion HCl 150 mg 10/20/18 22:00 10/20/18 23:33 Wellbutrin Sr PO 150 mg BID MICHELLE Administration Enoxaparin Sodium 40 mg 10/20/18 22:00 10/20/18 23:33 Lovenox SUB-Q 40 mg QDAY@2200 MICHELLE Administration Furosemide 40 mg 10/20/18 18:00 10/21/18 06:00 Lasix IV 40 mg 0600,1800 MICHELLE Administration Ceftriaxone Sodium 1 gm in 50 mls @ 100 mls/hr 10/20/18 18:29 10/20/18 18:41 Rocephin/Ns 1 Gm/50 Ml IV 100 mls/hr Q24HR MICHELLE Administration Protocol Nicotine 14 mg 10/21/18 11:00 Habitrol TD QDAY [facility] Nitroglycerin 0.4 mg 10/20/18 14:50 Nitrostat SL Q5M PRN Chest Pain Ondansetron HCl 4 mg 10/20/18 14:50 Zofran IV Q8H PRN Nausea And Vomiting Pantoprazole Sodium 20 mg 10/21/18 10:00 Protonix PO QDAY [facility] Potassium Chloride 10 meq 10/21/18 10:00 K-Dur PO QDAY [facility] Sodium Chloride 10 ml 10/20/18 22:00 10/20/18 23:34 Sodium Chloride Flush Syringe 10 Ml IV 10 ml BID MICHELLE Administration Sodium Chloride 10 ml 10/20/18 14:50 Sodium Chloride Flush Syringe 10 Ml IV PRN PRN LINE FLUSH
[2018-10-21] MEDS: WELLBUTRIN SR PO SCH ×2 (11:03→22:01)
[2018-10-21] MEDS: SODIUM CHLORIDE FLUSH SYRINGE 10 ML IV SCH ×2 (11:04→22:01)
[2018-10-21] MEDS: PROTONIX PO SCH (11:05)
[2018-10-21] MEDS: ROCEPHIN/NS 1 GM/50 ML 1 GM/50 ML BAG IV SCH (11:06)
[2018-10-21] MEDS: HABITROL TD SCH (11:26)
--- NOTE | 2018-10-21 12:37 | Event Note ---
Date: 10/21/18 Patient not in room when I came by. Will see him in AM.
[2018-10-21] MEDS: LOVENOX SUB-Q SCH (22:01)
[2018-10-22] MEDS: LASIX IV SCH ×2 (05:30→17:35)
--- NOTE | 2018-10-22 09:44 | Progress Note ---
Assessment and Plan Assessment and plan: 28M Super morbid obesity, CHF, chronic respiratory failure on 2 L of oxygen at all times, obesity hypoventilation, diabetes, asthma, nicotine dependence, lymphedema The patient presents to the hospital with vomiting and loose stools and chest pain, sob x [address] 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 Preventive health counseling, time spent 16 minutes DVT prophylaxis with Lovenox History Interval history: Review of systems Constitutional: No fevers, no malaise, no joint pains CVS: No chest pain, no orthopnea, no dyspnea on exertion, no pedal edema GI: No abdominal pain, no diarrhea, no vomiting, no constipation Respiratory: Shortness of breath is improving Hospitalist Physical - Physical exam Narrative exam: General.: Appears well, no distress, nontoxic HEENT: Moist mucous membranes, extraocular muscles intact, no lymphadenopathy Neck: supple Cardiac: S1-S2 heard Lungs: Diminished at bases Abdomen: soft , nontender, nondistended, bowel sounds positive Extremities: Chronic lymphedema of bilateral lower extremities., There is some erythema consistent with stasis dermatitis Skin: no rash or lesions Neurologic: no gross focal deficits Psych: calm, and cooperative - Constitutional Vitals: Temp Pulse Resp BP Pulse Ox 98.2 F 79 20 111/56 95 10/22/18 04:30 10/22/18 04:30 10/22/18 04:30 10/22/18 04:30 10/22/18 08:47 General appearance: Present: no acute distress Results - Labs CBC & Chem 7: 10/21/18 04:48 10/21/18 04:48 Labs: Laboratory Last Values WBC 7.7 K/mm3 (4.5-11.0) 10/21/18 04:48 RBC 4.60 M/mm3 (3.65-5.03) 10/21/18 04:48 Hgb 10.3 gm/dl (11.8-15.2) L 10/21/18 04:48 Hct 33.5 % (35.5-45.6) L 10/21/18 04:48 MCV 73 fl (84-94) L 10/21/18 04:48 MCH 22 pg (28-32) L 10/21/18 04:48 MCHC 31 % (32-34) L 10/21/18 04:48 RDW 20.4 % (13.2-15.2) H 10/21/18 04:48 Plt Count 261 K/mm3 (140-440) 10/21/18 04:48 Lymph % (Auto) 16.4 % (13.4-35.0) 10/21/18 04:48 [place] % (Auto) 7.4 % (0.0-7.3) H 10/21/18 04:48 Eos % (Auto) 1.1 % (0.0-4.3) 10/21/18 04:48 Baso % (Auto) 0.3 % (0.0-1.8) 10/21/18 04:48 Lymph # 1.3 K/mm3 (1.2-5.4) 10/21/18 04:48 [place] # 0.6 K/mm3 (0.0-0.8) 10/21/18 04:48 Eos # 0.1 K/mm3 (0.0-0.4) 10/21/18 04:48 Baso # 0.0 K/mm3 (0.0-0.1) 10/21/18 04:48 Seg Neutrophils % 74.8 % (40.0-70.0) H 10/21/18 04:48 Seg Neutrophils # 5.8 K/mm3 (1.8-7.7) 10/21/18 04:48 D-Dimer 451.58 ng/mlDDU (0-234) H 10/20/18 14:56 Sodium 138 mmol/L (137-145) 10/21/18 04:48 Potassium 3.8 mmol/L (3.6-5.0) 10/21/18 04:48 Chloride 96.5 mmol/L (98-107) L 10/21/18 04:48 Carbon Dioxide 31 mmol/L (22-30) H 10/21/18 04:48 Anion Gap 14 mmol/L 10/21/18 04:48 BUN 12 mg/dL (9-20) 10/21/18 04:48 Creatinine 1.0 mg/dL (0.8-1.5) 10/21/18 04:48 Estimated GFR > 60 ml/min 10/21/18 04:48 BUN/Creatinine Ratio 12 % 10/21/18 04:48 Glucose 125 mg/dL (75-100) H 10/21/18 04:48 Lactic Acid 0.70 mmol/L (0.7-2.0) 10/21/18 04:48 Calcium 8.5 mg/dL (8.4-10.2) 10/21/18 04:48 Total Bilirubin 0.50 mg/dL (0.1-1.2) 10/20/18 11:00 AST 15 units/L (5-40) 10/20/18 11:00 ALT 16 units/L (7-56) 10/20/18 11:00 Alkaline Phosphatase 110 units/L (35-129) 10/20/18 11:00 Troponin T < 0.010 ng/mL (0.00-0.029) 10/20/18 21:16 NT-Pro-B Natriuret Pep 124.9 pg/mL (0-450) 10/20/18 11:00 Total Protein 7.3 g/dL (6.3-8.2) 10/20/18 11:00 Albumin 3.8 g/dL (3.9-5) L 10/20/18 11:00 Albumin/Globulin Ratio 1.1 % 10/20/18 11:00 Lipase 14 units/L (13-60) 10/20/18 11:00 TSH 3.120 mlU/mL (0.270-4.200) 10/20/18 15:30 Free T4 0.91 ng/dL (0.76-1.46) 10/20/18 15:30 Active Medications - Current Medications Current Medications: Generic Name Dose Route Start Last Admin Trade Name Freq PRN Reason Stop Dose Admin Acetaminophen 650 mg 10/20/18 14:50 10/21/18 11:03 Tylenol PO 650 mg Q4H PRN Administration Pain MILD(1-3)/Fever >100.5/ARENAS Albuterol 2.5 mg 10/20/18 14:50 Proventil IH Q4HRT PRN Shortness Of Breath Bupropion HCl 150 mg 10/20/18 22:00 10/21/18 22:01 Wellbutrin Sr PO 150 mg BID MICHELLE Administration Enoxaparin Sodium 40 mg 10/20/18 22:00 10/21/18 22:01 Lovenox SUB-Q 40 mg QDAY@2200 MICHELLE Administration Furosemide 40 mg 10/20/18 18:00 10/22/18 05:30 Lasix IV 40 mg 0600,1800 MICHELLE Administration Ceftriaxone Sodium 1 gm in 50 mls @ 100 mls/hr 10/20/18 18:29 10/21/18 11:06 Rocephin/Ns 1 Gm/50 Ml IV 100 mls/hr Q24HR MICHELLE Administration Protocol Nicotine 14 mg 10/21/18 11:00 10/21/18 11:26 Habitrol TD 14 mg QDAY MICHELLE Administration Nitroglycerin 0.4 mg 10/20/18 14:50 Nitrostat SL Q5M PRN Chest Pain Ondansetron HCl 4 mg 10/20/18 14:50 Zofran IV Q8H PRN Nausea And Vomiting Pantoprazole Sodium 20 mg 10/21/18 10:00 10/21/18 11:05 Protonix PO 20 mg QDAY MCIHELLE Administration Potassium Chloride 10 meq 10/21/18 10:00 10/21/18 11:02 K-Dur PO 10 meq QDAY MICHELLE Administration Sodium Chloride 10 ml 10/20/18 22:00 10/21/18 22:01 Sodium Chloride Flush Syringe 10 Ml IV 10 ml BID MICHELLE Administration Sodium Chloride 10 ml 10/20/18 14:50 Sodium Chloride Flush Syringe 10 Ml IV PRN PRN LINE FLUSH Nutrition/Malnutrition Assess - Dietary Evaluation Nutrition/Malnutrition Findings: Nutrition Notes Start: 10/21/18 10:55 Freq: Status: Active Protocol: Document 10/21/18 10:55 SA (Rec: 10/21/18 11:03 SA [id number]) Co-Sign 10/21/18 10:55 LP Nutrition Notes Need for Assessment generated from: glass curvature gauger Initial or Follow up Brief Note Current Diagnosis Diabetes,Heart Failure Other Pertinent Diagnosis Obesity hypoventilation, Asthma, GERD, Lymphedema Current Diet NPO Labs/Tests Glu: 125 Subjective/Other Information RN screen for "patient recieving tube feeding/ parenteral nutrition?" Per patient, pt has never had Tube Feeding diet or Parenteral Nutrition. Pt states that diet will be changed to full liquid after NPO status change. Nutrition Intervention Revisit per MD consult or patient Sign Off request:
[2018-10-22] MEDS: K-DUR PO SCH (10:31)
[2018-10-22] MEDS: WELLBUTRIN SR PO SCH ×2 (10:31→21:51)
[2018-10-22] MEDS: HABITROL TD SCH (10:31)
[2018-10-22] MEDS: SODIUM CHLORIDE FLUSH SYRINGE 10 ML IV SCH ×2 (10:32→21:52)
[2018-10-22] MEDS: PROTONIX PO SCH (10:32)
[2018-10-22] MEDS: ROCEPHIN/NS 1 GM/50 ML 1 GM/50 ML BAG IV SCH (10:32)
--- NOTE | 2018-10-22 11:30 | Progress Note ---
Assessment and Plan Echo reviewed - TDS, EF 50-55%, abnormal diastolic function, LA mildly dilated, mild pulm HTN. Cont present cardiac management. Pt's weight precludes any additional cardiac testing. The patient has been seen in conjunction with Dr. Hanks who agrees with the assessment and plan of care. - Patient Problems (1) Dyspnea Current Visit: Yes Status: Acute Qualifiers: Dyspnea type: shortness of breath Qualified Code(s): R06.02 - Shortness of breath; R06.00 - Dyspnea, unspecified; R06.01 - Orthopnea (2) Chest pain Current Visit: Yes Status: Resolved (3) Morbid obesity Current Visit: Yes Status: Acute (4) LV dysfunction Current Visit: Yes Status: Chronic (5) Lymphedema Current Visit: Yes Status: Chronic (6) Obesity hypoventilation syndrome Current Visit: Yes Status: Chronic (7) Pulmonary hypertension Current Visit: Yes Status: Chronic Subjective Date of service: 10/22/18 Principal diagnosis: sob; cp Interval history: pt resting in bed, states SOB improving and chest pain resolved. in SR/SB overnight. Objective Last Vital Signs Temp 98.2 F 10/22/18 04:30 Pulse 79 10/22/18 04:30 Resp 20 10/22/18 04:30 BP 111/56 10/22/18 04:30 Pulse Ox 95 10/22/18 08:47 - Physical Examination General: No Apparent Distress HEENT: Positive: PERRL, Normocephaly, Mucus Membranes Moist Neck: Positive: neck supple, trachea midline Cardiac: Positive: Reg Rate and Rhythm, S1/S2 Lungs: Positive: Decreased Breath Sounds Neuro: Positive: Grossly Intact Abdomen: Positive: Soft. Negative: Tender Musculoskeletal: No Pain Extremities: Present: +3 Edema (BLE lymphedema) - Imaging and Cardiology EKG: report reviewed, image reviewed Echo: report reviewed ( 08/2017 showed EF 40-45%, pulmonary HTN with RVSP 56mmHg. ) - EKG Sinus rhythms and dysrhythmias: sinus rhythm
--- NOTE | 2018-10-22 17:05 | Consultation ---
History of Present Illness Consult date: 10/22/18 Requesting physician: TATUM MULLINS Reason for consult: dyspnea, chest pain History of present illness: 28 yo admitted with N/V/D, abdominal pain and some chest pain. These symptoms have all resolved as of this evaluation. He states he has chronic SOB with mild exertion, stable. No fevers, chills, cough, sputum. He told me he had a "negative" sleep study in 2018 and only uses O2 QHS. Active Medications Acetaminophen (Tylenol) 650 mg PO Q4H PRN PRN Reason: Pain MILD(1-3)/Fever >100.5/ARENAS Last Admin: 10/21/18 11:03 Dose: 650 mg Documented by: Albuterol (Proventil) 2.5 mg IH Q4HRT PRN PRN Reason: Shortness Of Breath Bupropion HCl (Wellbutrin Sr) 150 mg PO BID [facility] Last Admin: 10/22/18 10:31 Dose: 150 mg Documented by: Clobetasol Propionate (Temovate) 1 applic TP BID [facility] Enoxaparin Sodium (Lovenox) 40 mg SUB-Q QDAY@2200 [facility] Last Admin: 10/21/18 22:01 Dose: 40 mg Documented by: Furosemide (Lasix) 40 mg IV 0600,1800 [facility] Last Admin: 10/22/18 05:30 Dose: 40 mg Documented by: Ceftriaxone Sodium (Rocephin/Ns 1 Gm/50 Ml) 1 gm in 50 mls @ 100 mls/hr IV Q24HR [facility]; Protocol Last Admin: 10/22/18 10:32 Dose: 100 mls/hr Documented by: Nicotine (Habitrol) 14 mg TD QDAY [facility] Last Admin: 10/22/18 10:31 Dose: 14 mg Documented by: Nitroglycerin (Nitrostat) 0.4 mg SL Q5M PRN PRN Reason: Chest Pain Ondansetron HCl (Zofran) 4 mg IV Q8H PRN PRN Reason: Nausea And Vomiting Pantoprazole Sodium (Protonix) 20 mg PO QDAY [facility] Last Admin: 10/22/18 10:32 Dose: 20 mg Documented by: Potassium Chloride (K-Dur) 10 meq PO QDAY [facility] Last Admin: 10/22/18 10:31 Dose: 10 meq Documented by: Sodium Chloride (Sodium Chloride Flush Syringe 10 Ml) 10 ml IV BID [facility] Last Admin: 10/22/18 10:32 Dose: 10 ml Documented by: Sodium Chloride (Sodium Chloride Flush Syringe 10 Ml) 10 ml IV PRN PRN PRN Reason: LINE FLUSH Past History Past Medical History: heart failure, hypertension, other (MO, Obesity Hypoventilation Syndrome, RUSSEL) Past Surgical History: No surgical history Social history: single, smoking, full code. denies: alcohol abuse, prescription drug abuse, IV drug use Family history: diabetes, hypertension Medications and Allergies Allergies Allergy/AdvReac Type Severity Reaction Status Date / Time latex Allergy Unknown Verified 10/20/18 10:36 vancomycin Allergy Hives Verified 08/07/17 16:25 Home Medications Medication Instructions Recorded Confirmed Last Taken Type Furosemide [Lasix TAB] 40 mg PO BID 11/04/17 10/20/18 Unknown History Potassium Chloride [Klor-Con M10] 10 meq PO QDAY 11/04/17 10/20/18 Unknown History buPROPion SR [Wellbutrin Sr] 150 mg PO BID 11/04/17 10/20/18 Unknown History Active Meds: Active Medications Acetaminophen (Tylenol) 650 mg PO Q4H PRN PRN Reason: Pain MILD(1-3)/Fever >100.5/ARENAS Last Admin: 10/21/18 11:03 Dose: 650 mg Documented by: Albuterol (Proventil) 2.5 mg IH Q4HRT PRN PRN Reason: Shortness Of Breath Bupropion HCl (Wellbutrin Sr) 150 mg PO BID [facility] Last Admin: 10/22/18 10:31 Dose: 150 mg Documented by: Clobetasol Propionate (Temovate) 1 applic TP BID [facility] Enoxaparin Sodium (Lovenox) 40 mg SUB-Q QDAY@2200 [facility] Last Admin: 10/21/18 22:01 Dose: 40 mg Documented by: Furosemide (Lasix) 40 mg IV 0600,1800 [facility] Last Admin: 10/22/18 05:30 Dose: 40 mg Documented by: Ceftriaxone Sodium (Rocephin/Ns 1 Gm/50 Ml) 1 gm in 50 mls @ 100 mls/hr IV Q24HR [facility]; Protocol Last Admin: 10/22/18 10:32 Dose: 100 mls/hr Documented by: Nicotine (Habitrol) 14 mg TD QDAY [facility] Last Admin: 10/22/18 10:31 Dose: 14 mg Documented by: Nitroglycerin (Nitrostat) 0.4 mg SL Q5M PRN PRN Reason: Chest Pain Ondansetron HCl (Zofran) 4 mg IV Q8H PRN PRN Reason: Nausea And Vomiting Pantoprazole Sodium (Protonix) 20 mg PO QDAY [facility] Last Admin: 10/22/18 10:32 Dose: 20 mg Documented by: Potassium Chloride (K-Dur) 10 meq PO QDAY [facility] Last Admin: 10/22/18 10:31 Dose: 10 meq Documented by: Sodium Chloride (Sodium Chloride Flush Syringe 10 Ml) 10 ml IV BID [facility] Last Admin: 10/22/18 10:32 Dose: 10 ml Documented by: Sodium Chloride (Sodium Chloride Flush Syringe 10 Ml) 10 ml IV PRN PRN PRN Reason: LINE FLUSH Review of Systems All systems: negative Physical Examination Vital signs: Vital Signs Temp Pulse Resp BP Pulse Ox 97.3 F L 84 20 122/61 98 10/20/18 10:25 10/20/18 10:25 10/20/18 10:25 10/20/18 10:25 10/20/18 10:25 General appearance: no acute distress, alert, other (obese) Eyes: non-icteric ENT: oropharynx moist Neck: supple Effort: normal Ascultation: Bilateral: diminished breath sounds (due to obesity) Cardiovascular: regular rate and rhythm (no mrg) Gastrointestinal: normoactive bowel sounds Integumentary: normal Extremities: no cyanosis, pink and warm, edema (lymphedema) normal mental status, non-focal exam, pupils equal and round mood appropriate, affect normal Results - Laboratory Findings CBC and BMP: 10/21/18 04:48 10/21/18 04:48 PT/INR, D-dimer D-Dimer 451.58 ng/mlDDU (0-234) H 10/20/18 14:56 Abnormal lab findings: Abnormal Labs 10/20/18 10/20/18 10/20/18 11:00 11:00 14:56 RBC 5.30 H Hgb Hct MCV 74 L MCH 22 L MCHC 30 L RDW 20.9 H Lymph % (Auto) 6.9 L [place] % (Auto) Lymph # 0.7 L Seg Neutrophils % 85.0 H Seg Neutrophils # 8.2 H D-Dimer 451.58 H Chloride Carbon Dioxide 31 H Glucose 158 H Albumin 3.8 L 10/21/18 10/21/18 04:48 04:48 RBC Hgb 10.3 L Hct 33.5 L MCV 73 L MCH 22 L MCHC 31 L RDW 20.4 H Lymph % (Auto) [place] % (Auto) 7.4 H Lymph # Seg Neutrophils % 74.8 H Seg Neutrophils # D-Dimer Chloride 96.5 L Carbon Dioxide 31 H Glucose 125 H Albumin - Diagnostic Findings Chest x-ray: report reviewed, image reviewed Assessment and Plan Imp: 1. RUSSEL 2. OHS 3. Morbid obesity 4. A/C diastolic CHF related to above 5. Pulm HTN related to above 6. Chronic respiratory failure, hypoxia and hypercapnea 2/2 above 7. Chronic nicotine dependence, cigarettes Rec: 1. Lasix 2. BP control 3. Sodium avoidance 4. Weight loss 5. O2 to keep sats 88-94% 6. Stop smoking, counseled 7. PSG reviewed from 2018 and had severe RUSSEL; CPAP was ineffective to treat, and a BIPAP study was poor quality; patient failed to reschedule another BIPAP titration study as recommended, and told me today that his sleep studies were "negative" for sleep apnea; he needs to f/u with Dr. Hunter SMITH re: this, and I will also see if our office can call him to reschedule the BIPAP study 8. Appears near usual pulmonary baseline so believe he can be discharged from our standpoint Plan of care reviewed with patient, he understands/agrees Thanks for the consult.
--- NOTE | 2018-10-22 19:06 | Vascular Lab Report ---
PROCEDURE: VL VENOUS DUPLEX LE BILAT HISTORY: elevated d dimer' FINDINGS: Real-time ultrasound of the right leg and left leg was performed. Examination is limited by patient body habitus. No evidence of deep venous thrombosis in the right common femoral vein, proxim al superficial femoral vein and mid superficial femoral vein. The distal superficial femoral vein, po pliteal vein and calf veins were not identified due to patient body habitus. No evidence of deep venous thrombus is seen in the left common femoral vein, proximal superficial fem oral vein, mid superficial femoral vein, distal superficial femoral vein or popliteal vein. IMPRESSION: Examination limited by patient body habitus No DVT is seen in either leg This document is electronically signed by Sabino Jessica MD., October 22 2018 07:04:39 PM ET
[2018-10-22] MEDS: TEMOVATE TP SCH (21:51)
[2018-10-22] MEDS: LOVENOX SUB-Q SCH (21:51)
[2018-10-23] MEDS: LASIX IV SCH (05:36)
[2018-10-23 09:08] VITALS: BP 114/55
[2018-10-23] MEDS: HABITROL TD SCH (09:57)
[2018-10-23] MEDS: WELLBUTRIN SR PO SCH (09:57)
[2018-10-23] MEDS: K-DUR PO SCH (09:57)
[2018-10-23] MEDS: SODIUM CHLORIDE FLUSH SYRINGE 10 ML IV SCH (09:57)
[2018-10-23] MEDS: PROTONIX PO SCH (09:58)
[2018-10-23] MEDS: TEMOVATE TP SCH (09:59)
[2018-10-23] MEDS: ROCEPHIN/NS 1 GM/50 ML 1 GM/50 ML BAG IV SCH (10:25)
--- NOTE | 2018-10-23 11:21 | Discharge Summary ---
Providers - Providers Date of Admission: 10/20/18 14:50 Attending physician: COLLETTE MENDEZ MD 10/20/18 Consult to Cardiac Rehabilitation [CONS] Routine Reason For Exam: Phase I 10/20/18 14:50 Consult to Cardiology [CONS] Routine Consulting Provider: GABRIELE STINSON Reason For Exam: chf 10/20/18 18:33 Consult to Physician [CONS] Routine Comment: Consulting Provider: ADELINA RHOADES Physician Instructions: Reason For Exam: Pulmonary HTN 10/21/18 10:56 Consult to Wound/ET Nurse [CONS] Routine Reason For Exam: wound eval 10/21/18 11:00 Consult to Physician [CONS] Routine Comment: Consulting Provider: KACY ALLEN Physician Instructions: Reason For Exam: russel, obesity hypoventilation Primary care physician: RUSSELL SANDERS Hospitalization Condition: Fair Hospital course: 28M Super morbid obesity, CHF, chronic respiratory failure on 2 L of oxygen at all times, obesity hypoventilation, diabetes, asthma, nicotine dependence, lymphedema The patient presents to the hospital with vomiting and loose stools and chest pain, sob x [address] Sanders, [facility]canizer at [facility] Diagnosis Nausea vomiting and diarrhea History of CHF, EF 40% in the past. Presently has preserved EF of 55% GERD Lower extremity lymphedema Pulmonary hypertension with RSVP 56mmHg Obesity hypoventilation syndrome RUSSEL Tobacco abuse, ongoing Stasis dermatitis of lower extremities Plan -Most likely GI symptoms are from a viral gastroenteritis, resolved without any specific intervention, he was treated with PPI Echo showed preserved EF, ACS ruled out, serial troponins negative -He received IV diuresis, oxygen supplementation, his respiratory status improved after which he was discharged. Patient's weights precludes any additional cardiac testing tobacco cessation counseling done greater than 10 mins spent, nicotine patches were given bipap qhs counseled about weight loss, will need referral by his pcp for weight loss program. Preventive health counseling, time spent 16 minutes -The patient was given steroid creams for treatment of stasis dermatitis of his lower extremities DVT prophylaxis with Lovenox Disposition: TO HOME OR SELFCARE Time spent for discharge: 33 mins Core Measure Documentation - Palliative Care Palliative Care/ Comfort Measures: Not Applicable - Core Measures Any of the following diagnoses?: none Exam - Physical Exam Narrative exam: General.: Appears well, no distress, nontoxic HEENT: Moist mucous membranes, extraocular muscles intact, no lymphadenopathy Neck: supple Cardiac: S1-S2 heard Lungs: Diminished at bases Abdomen: soft , nontender, nondistended, bowel sounds positive Extremities: Chronic lymphedema of bilateral lower extremities., There is some erythema consistent with stasis dermatitis Skin: no rash or lesions Neurologic: no gross focal deficits Psych: calm, and cooperative - Constitutional Vitals: Temp Pulse Resp BP Pulse Ox 98.8 F 82 20 114/55 91 10/23/18 09:06 10/23/18 09:06 10/23/18 09:06 10/23/18 09:06 10/23/18 09:06 Plan Follow up with: LEIF PADILLAONAMIA MD MICHELLE [Referring] - 3-5 Days Prescriptions: RX: Nicotine [Habitrol] 14 mg TD QDAY #20 patch RX: Potassium Chloride [Klor-Con M10] 20 meq PO QDAY 30 Days tab.er.prt RX: Furosemide [Lasix TAB] 40 mg PO BID #60 tablet RX: Pantoprazole [Protonix TAB] 20 mg PO QDAY #30 tablet.dr RX: Clobetasol 0.05% [Temovate] 1 applic TP BID #1 tube
--- NOTE | 2018-10-23 14:01 | Progress Note ---
Assessment and Plan Currently stable cardiac status. Pt reports resolution of cp and sob. Pt may discharge home from cardiology standpoint. Recommend pt follow up in our office with Dr. Jimenez within 1-2 weeks of hospital discharge ([phone]). The patient has been seen in conjunction with Dr. Dennis who agrees with the assessment and plan of care. - Patient Problems (1) Dyspnea Current Visit: Yes Status: Acute Qualifiers: Dyspnea type: shortness of breath Qualified Code(s): R06.02 - Shortness of breath; R06.00 - Dyspnea, unspecified; R06.01 - Orthopnea (2) Chest pain Current Visit: Yes Status: Resolved (3) Morbid obesity Current Visit: Yes Status: Acute (4) LV dysfunction Current Visit: Yes Status: Chronic (5) Lymphedema Current Visit: Yes Status: Chronic (6) Obesity hypoventilation syndrome Current Visit: Yes Status: Chronic (7) Pulmonary hypertension Current Visit: Yes Status: Chronic Subjective Date of service: 10/23/18 Principal diagnosis: sob; cp Interval history: pt resting in bed, states SOB and chest pain resolved. in SR/SB overnight. Objective Last Vital Signs Temp 98.8 F 10/23/18 09:06 Pulse 82 10/23/18 09:06 Resp 20 10/23/18 09:06 BP 114/55 10/23/18 09:06 Pulse Ox 91 10/23/18 09:06 - Physical Examination General: No Apparent Distress HEENT: Positive: PERRL, Normocephaly, Mucus Membranes Moist Neck: Positive: neck supple, trachea midline Cardiac: Positive: Reg Rate and Rhythm, S1/S2 Lungs: Positive: Decreased Breath Sounds Neuro: Positive: Grossly Intact Abdomen: Positive: Soft. Negative: Tender Musculoskeletal: No Pain Extremities: Present: +3 Edema (BLE lymphedema) - Imaging and Cardiology EKG: report reviewed, image reviewed Echo: report reviewed ( 08/2017 showed EF 40-45%, pulmonary HTN with RVSP 56mmHg. ) - Telemetry EKG Rhythm: Sinus Rhythm - EKG Sinus rhythms and dysrhythmias: sinus rhythm
== END 2018-10-23 14:52 | disposition home or self-care (01) | DRG 391 ==
LOC: ED 10:16 → 4A 14:50
PROVIDERS: ADMIT Internal Medicine; ATTEND Internal Medicine
DX: A08.4 Viral intestinal infection, unspecified (principal); I50.43 Acute on chronic combined systolic (congestive) and diastolic (congestive) heart failure; L03.116 Cellulitis of left lower limb; I27.20 Pulmonary hypertension, unspecified; I89.0 Lymphedema, not elsewhere classified; E66.2 Morbid (severe) obesity with alveolar hypoventilation; Z68.45 Body mass index [BMI] 70 or greater, adult; J96.10 Chronic respiratory failure, unspecified whether with hypoxia or hypercapnia; J45.909 Unspecified asthma, uncomplicated; E11.9 Type 2 diabetes mellitus without complications; K21.9 Gastro-esophageal reflux disease without esophagitis; I87.2 Venous insufficiency (chronic) (peripheral); I11.0 Hypertensive heart disease with heart failure; F32.9 Major depressive disorder, single episode, unspecified; F17.210 Nicotine dependence, cigarettes, uncomplicated; Z71.6 Tobacco abuse counseling; Z99.81 Dependence on supplemental oxygen; Z82.49 Family history of ischemic heart disease and other diseases of the circulatory system; Z83.3 Family history of diabetes mellitus; Z88.1 Allergy status to other antibiotic agents; Z91.040 Latex allergy status; Z79.899 Other long term (current) drug therapy
CPT/HCPCS: 36415; 71046; 74019; 80048; 80053; 82140; 83690; 83880; 84439; 84443; 84484; 85025; 85379; 93005; 93010; 93306; 93970; 94640; 94760; 96365; 96372; 96375; 99406; G0378; J0696; J1650; J1940; J2405

== ENCOUNTER 2019-01-11 21:03 | Emergency (ER) | payer MEDICAID, OTHER ==
[2019-01-11] MEDS ORDERED: DELTASONE PO ONE (22:11)
[2019-01-11] MEDS ORDERED: DUONEB *Not for PRN Use IH ONE (22:12)
[2019-01-11 22:39] LABS: Basophils # (Auto) 0.1 K/mm3 (0.0-0.1); Eosinophils # (Auto) 0.3 K/mm3 (0.0-0.4); Eosinophils % (Auto) 2.9 % (0.0-4.3); Hematocrit 36.4 % (35.5-45.6); Hemoglobin 11.6 gm/dl (11.8-15.2); Lymphocytes # (Auto) 1.2 K/mm3 (1.2-5.4); Lymphocytes % (Auto) 11.4 % (13.4-35.0); Mean Corpuscular HGB Conc 32 % (32-34); Mean Corpuscular Volume 74 fl (84-94); Monocytes # (Auto) 0.5 K/mm3 (0.0-0.8); Monocytes % (Auto) 4.7 % (0.0-7.3); Platelet Count 253 K/mm3 (140-440); Red Blood Count 4.95 M/mm3 (3.65-5.03); Red Cell Distribution Width 22.5 % (13.2-15.2)
--- NOTE | 2019-01-11 22:42 | XRay Report ---
CHEST 1 VIEW INDICATION: Chest Pain. COMPARISON: 10/20/2018. FINDINGS: Support devices: None. Heart: Normal. Lungs/Pleura: No acute pulmonary or pleural findings. IMPRESSION: 1. No acute findings. Signer Name: Roney Flynn MD Signed: 01/11/2019 10:38 PM Workstation Name: [id number]
[2019-01-11 23:01] LABS: Alanine Aminotransferase 29 units/L (7-56); Albumin 3.9 g/dL (3.9-5); BUN/Creatinine Ratio 8; Blood Urea Nitrogen 9 mg/dL (9-20); Calcium 9.1 mg/dL (8.4-10.2); Hemolysis Index 4
--- NOTE | 2019-01-12 00:06 | Emergency Department Report ---
ED Abdominal Pain HPI - General Chief Complaint: Dyspnea/Respdistress Stated Complaint: GENEVIEVE Time Seen by Provider: 01/11/19 21:54 Source: patient, EMS Mode of arrival: Stretcher Limitations: Physical Limitation - History of Present Illness Initial Comments: Mr. Ellison is a 28-year-old male with history of marijuana use who presents with several days of. Umbilical pain. He's had generalized malaise. Pain is crampy. He stopped using marijuana for the past week. No pain now. No bleed. With hematemesis, it frightened him. Hematemesis prompted him come to the ER. MD Complaint: abdominal pain -: Gradual, week(s) (1) Location: periumbilical Severity: mild Severity scale (0 -10): 0 Quality: cramping Consistency: now resolved Improves With: nothing Worsens With: nothing - Related Data Home Medications Medication Instructions Recorded Confirmed Last Taken buPROPion SR [Wellbutrin SR] 150 mg PO BID 11/04/17 01/11/19 Unknown Previous Rx's Medication Instructions Recorded Last Taken Type Clobetasol 0.05% [Temovate] 1 applic TP BID #1 tube 10/23/18 Unknown Rx Furosemide [Lasix TAB] 40 mg PO BID #60 tablet 10/23/18 Unknown Rx Nicotine [Habitrol] 14 mg TD QDAY #20 patch 10/23/18 Unknown Rx Pantoprazole [Protonix TAB] 20 mg PO QDAY #30 tablet. 10/23/18 Unknown Rx Potassium Chloride [Klor-Con M10] 20 meq PO QDAY 30 Days tab.er.prt 10/23/18 Unknown Rx Allergies Allergy/AdvReac Type Severity Reaction Status Date / Time clindamycin Allergy Unknown Verified 01/11/19 21:28 latex Allergy Unknown Verified 10/20/18 10:36 metformin Allergy Unknown Verified 01/11/19 21:28 vancomycin Allergy Hives Verified 08/07/17 16:25 ED Review of Systems ROS: Stated complaint: GENEVIEVE Other details as noted in HPI Comment: All other systems reviewed and negative Constitutional: malaise. denies: fever Gastrointestinal: abdominal pain, nausea, vomiting, hematemesis ED Past Medical Hx - Past Medical History Previous Medical History?: Yes Hx Hypertension: Yes Hx Congestive Heart Failure: Yes Hx Diabetes: Yes (possible borderline DM) Hx Deep Vein Thrombosis: No Hx Psychiatric Treatment: Yes (Depression) Hx Asthma: Yes Additional medical history: morbidly obese, HOME OXYGEN @ 2LPM NASAL CANULLA, lymphedema - Surgical History Hx Pacemaker: No Hx Internal Defibrillator: No - Social History Smoking Status: Never Smoker Substance Use Type: None - Medications Home Medications: Home Medications Medication Instructions Recorded Confirmed Last Taken Type buPROPion SR [Wellbutrin SR] 150 mg PO BID 11/04/17 01/11/19 Unknown History Clobetasol 0.05% [Temovate] 1 applic TP BID #1 tube 10/23/18 01/11/19 Unknown Rx Furosemide [Lasix TAB] 40 mg PO BID #60 tablet 10/23/18 01/11/19 Unknown Rx Nicotine [Habitrol] 14 mg TD QDAY #20 patch 10/23/18 01/11/19 Unknown Rx Pantoprazole [Protonix TAB] 20 mg PO QDAY #30 tablet. 10/23/18 01/11/19 Unknown Rx Potassium Chloride [Klor-Con M10] 20 meq PO QDAY 30 Days tab.er.prt 10/23/18 01/11/19 Unknown Rx ED Physical Exam - General Limitations: Physical Limitation ED Course Vital Signs 01/11/19 01/11/19 01/11/19 21:28 21:30 22:00 Temperature 98.4 F Pulse Rate 92 H 91 H 93 H Pulse Rate [ Bilateral Throughout] Respiratory 22 25 H 26 H Rate Respiratory Rate [Bilateral Throughout] Blood Pressure 133/58 133/58 140/52 Blood Pressure 133/58 [Right] O2 Sat by Pulse 100 100 100 Oximetry 01/11/19 01/11/19 01/11/19 22:30 22:55 23:00 Temperature Pulse Rate 98 H 89 Pulse Rate [ 70 Bilateral Throughout] Respiratory 20 27 H Rate Respiratory 18 Rate [Bilateral Throughout] Blood Pressure 133/58 144/60 Blood Pressure [Right] O2 Sat by Pulse 94 100 Oximetry ED Medical Decision Making - Lab Data Result diagrams: 01/11/19 22:16 01/11/19 22:16 Critical care attestation.: If time is entered above; I have spent that time in minutes in the direct care of this critically ill patient, excluding procedure time. ED Disposition Condition: Stable Referrals: PRIMARY CARE, [Primary Care Provider] - 3-5 Days
--- NOTE | 2019-01-12 00:14 | Emergency Department Report ---
ED Shortness of Breath HPI - General Chief Complaint: Dyspnea/Respdistress Stated Complaint: GENEVIEVE Time Seen by Provider: 01/11/19 21:54 Source: patient, EMS Mode of arrival: Stretcher Limitations: Physical Limitation - History of Present Illness Initial Comments: Mr. Ellison is a 28-year-old male with history of severe obesity, pulmonary hypertension, tobacco abuse, CHF, hypertension who presents with several days of cough wheezing productive green sputum sputum. Hewas recently discharged for [facility] with abdominal wall cellulitis. He is currently taking doxycycline. He denies any neck pain. Denies fever. His fiance at bedside has similar symptoms. He is dependent on 5 L nasal cannula oxygen at home Complaint: shortness of breath -: Gradual, days(s) (several days) Severity: moderate Consistency: constant Worsens With: exertion Associated Symptoms: cough, sputum production - Related Data Home Medications Medication Instructions Recorded Confirmed Last Taken buPROPion SR [Wellbutrin SR] 150 mg PO BID 11/04/17 01/11/19 Unknown Previous Rx's Medication Instructions Recorded Last Taken Type Clobetasol 0.05% [Temovate] 1 applic TP BID #1 tube 10/23/18 Unknown Rx Furosemide [Lasix TAB] 40 mg PO BID #60 tablet 10/23/18 Unknown Rx Nicotine [Habitrol] 14 mg TD QDAY #20 patch 10/23/18 Unknown Rx Pantoprazole [Protonix TAB] 20 mg PO QDAY #30 tablet. 10/23/18 Unknown Rx Potassium Chloride [Klor-Con M10] 20 meq PO QDAY 30 Days tab.er.prt 10/23/18 Unknown Rx Doxycycline Hyclate [Doxycycline 100 mg PO Q12HR 7 Days #14 tab 01/12/19 Unknown Rx Hyclate TAB] Prednisone [predniSONE 10 mg 10 mg PO .TAPER #1 tab.ds.pk 01/12/19 Unknown Rx (6-Day Pack, 21 Tabs)] Allergies Allergy/AdvReac Type Severity Reaction Status Date / Time clindamycin Allergy Unknown Verified 01/11/19 21:28 latex Allergy Unknown Verified 10/20/18 10:36 metformin Allergy Unknown Verified 01/11/19 21:28 vancomycin Allergy Hives Verified 08/07/17 16:25 ED Review of Systems ROS: Stated complaint: GENEVIEVE Other details as noted in HPI Comment: All other systems reviewed and negative Constitutional: malaise Respiratory: cough, shortness of breath, wheezing Cardiovascular: denies: chest pain ED Past Medical Hx - Past Medical History Previous Medical History?: Yes Hx Hypertension: Yes Hx Congestive Heart Failure: Yes Hx Diabetes: Yes (possible borderline DM) Hx Deep Vein Thrombosis: No Hx Psychiatric Treatment: Yes (Depression) Hx Asthma: Yes Additional medical history: morbidly obese, HOME OXYGEN @ 2LPM NASAL CANULLA, lymphedema - Surgical History Hx Pacemaker: No Hx Internal Defibrillator: No - Social History Smoking Status: Never Smoker Substance Use Type: None - Medications Home Medications: Home Medications Medication Instructions Recorded Confirmed Last Taken Type buPROPion SR [Wellbutrin SR] 150 mg PO BID 11/04/17 01/11/19 Unknown History Clobetasol 0.05% [Temovate] 1 applic TP BID #1 tube 10/23/18 01/11/19 Unknown Rx Furosemide [Lasix TAB] 40 mg PO BID #60 tablet 10/23/18 01/11/19 Unknown Rx Nicotine [Habitrol] 14 mg TD QDAY #20 patch 10/23/18 01/11/19 Unknown Rx Pantoprazole [Protonix TAB] 20 mg PO QDAY #30 tablet.dr 10/23/18 01/11/19 Unknown Rx Potassium Chloride [Klor-Con M10] 20 meq PO QDAY 30 Days tab.er.prt 10/23/18 01/11/19 Unknown Rx Doxycycline Hyclate [Doxycycline 100 mg PO Q12HR 7 Days #14 tab 01/12/19 Unknown Rx Hyclate TAB] Prednisone [predniSONE 10 mg 10 mg PO .TAPER #1 tab.ds.pk 01/12/19 Unknown Rx (6-Day Pack, 21 Tabs)] ED Physical Exam - General Limitations: Physical Limitation General appearance: alert, in no apparent distress, other (frequent harsh cough) - Head Head exam: Present: atraumatic, normocephalic - Eye Eye exam: Present: normal appearance - ENT ENT exam: Present: mucous membranes moist - Neck Neck exam: Present: normal inspection, full ROM - Respiratory Respiratory exam: Present: normal lung sounds bilaterally. Absent: respiratory distress, wheezes, rales, rhonchi - Cardiovascular Cardiovascular Exam: Present: regular rate, normal rhythm. Absent: systolic murmur, diastolic murmur, rubs, gallop - GI/Abdominal GI/Abdominal exam: Present: soft, normal bowel sounds. Absent: distended, tenderness, guarding, rebound - Extremities Exam Extremities exam: Present: other (severe lymphedema with venous stasis changes in the lower extremities) - Back Exam Back exam: Present: normal inspection - Neurological Exam Neurological exam: Present: alert, oriented X3 - Psychiatric Psychiatric exam: Present: normal affect, normal mood - Skin Skin exam: Present: warm, dry, intact, normal color. Absent: rash ED Course Vital Signs 01/11/19 01/11/19 01/11/19 21:28 21:30 22:00 Temperature 98.4 F Pulse Rate 92 H 91 H 93 H Pulse Rate [ Bilateral Throughout] Respiratory 22 25 H 26 H Rate Respiratory Rate [Bilateral Throughout] Blood Pressure 133/58 133/58 140/52 Blood Pressure 133/58 [Right] O2 Sat by Pulse 100 100 100 Oximetry 01/11/19 01/11/19 01/11/19 22:30 22:55 23:00 Temperature Pulse Rate 98 H 89 Pulse Rate [ 70 Bilateral Throughout] Respiratory 20 27 H Rate Respiratory 18 Rate [Bilateral Throughout] Blood Pressure 133/58 144/60 Blood Pressure [Right] O2 Sat by Pulse 94 100 Oximetry ED Medical Decision Making - Lab Data Result diagrams: 01/11/19 22:16 01/11/19 22:16 Laboratory Results - last 24 hr 01/11/19 01/11/19 01/11/19 22:16 22:16 22:16 WBC 10.5 RBC 4.95 Hgb 11.6 L Hct 36.4 MCV 74 L MCH 23 L MCHC 32 RDW 22.5 H Plt Count 253 Lymph % (Auto) 11.4 L Isabel[place] % (Auto) 4.7 Eos % (Auto) 2.9 Baso % (Auto) 1.0 Lymph # 1.2 Isabela # 0.5 Eos # 0.3 Baso # 0.1 Seg Neutrophils % 80.0 H Seg Neutrophils # 8.4 H Sodium 140 Potassium 4.3 Chloride 101.5 Carbon Dioxide 29 Anion Gap 14 BUN 9 Creatinine 1.2 Estimated GFR > 60 BUN/Creatinine Ratio 8 Glucose 115 H Calcium 9.1 Total Bilirubin 0.60 AST 19 ALT 29 Alkaline Phosphatase 113 NT-Pro-B Natriuret Pep 270.4 Total Protein 7.0 Albumin 3.9 Albumin/Globulin Ratio 1.3 - Radiology Data Radiology results: report reviewed Chest radiograph no acute process according to radiology report - Medical Decision Making Mr. Ellison presents with symptoms of acute bronchitis including shortness of breath wheezing and productive cough. I strongly recommended tobacco use cessation. Described doxycycline and prednisone in addition to the course of antibiotics he is currently taken. No evidence of pneumonia or pulmonary edema. From presentation I do not suspect pulmonary embolism. Critical care attestation.: If time is entered above; I have spent that time in minutes in the direct care of this critically ill patient, excluding procedure time. ED Disposition Clinical Impression: Acute bronchitis, Tobacco abuse Disposition: - TO HOME OR SELFCARE Is pt being admited?: No Does the pt Need Aspirin: No Condition: Stable Instructions: Acute Bronchitis (ED) Prescriptions: Doxycycline Hyclate [Doxycycline Hyclate TAB] 100 mg PO Q12HR 7 Days #14 tab Prednisone [predniSONE 10 mg (6-Day Pack, 21 Tabs)] 10 mg PO .TAPER #1 tab.jami Referrals: PRIMARY CARE, [Primary Care Provider] - 3-5 Days
[2019-01-12 01:05] VITALS: BP 142/51
== END 2019-01-12 00:40 | disposition home or self-care (01) ==
LOC: ED 21:03
DX: J20.9 Acute bronchitis, unspecified (principal); Z72.0 Tobacco use; I11.0 Hypertensive heart disease with heart failure; I50.9 Heart failure, unspecified; E11.9 Type 2 diabetes mellitus without complications; F32.9 Major depressive disorder, single episode, unspecified; J45.909 Unspecified asthma, uncomplicated; E66.01 Morbid (severe) obesity due to excess calories; Z68.44 Body mass index [BMI] 60.0-69.9, adult; Z79.899 Other long term (current) drug therapy; Z88.1 Allergy status to other antibiotic agents; Z88.6 Allergy status to analgesic agent; Z91.040 Latex allergy status
CPT/HCPCS: 36415; 71045; 80053; 83880; 85025; 93005; 93010; 94640; 99284; J7512

== ENCOUNTER 2020-11-20 11:53 | Inpatient (IN) | payer MEDICAID ==
--- NOTE | 2020-11-20 12:17 | Emergency Department Report ---
Blank Doc - Documentation Documentation: 30-year-old male that was sent by Dr. Duff's office for bilateral leg swelli ng, shortness of breath and abdominal swelling and redness. History of CHF. 1- This initial assessment/diagnostic orders/clinical plan/ treatment(s) is/are subject to change based on pt's health status, clinical progression and re- assessment by fellow clinical providers in the ED. Further treatment and workup at subsequent clinical provers discretion. Patient/guardians urged not to elope from ED as their condition may be serious if not clinically assessed and managed. 2-cardiac work-up
--- NOTE | 2020-11-20 12:56 | XRay Report ---
CHEST PA AND LATERAL VIEWS INDICATION: Chest Pain. COMPARISON: 01/27/2020 FINDINGS: Support devices: None. Heart: Within normal limits. Lungs/Pleura: No consolidation or effusion. No pneumothorax. IMPRESSION: 1. No acute findings. Signer Name: Roney Flynn MD Signed: 11/20/2020 12:52 PM Workstation Name: [id number]
[2020-11-20 13:29] LABS: INR 1.1 (0.87-1.13)
[2020-11-20 13:30] LABS: Partial Thromboplastin Time 28.3 Sec. (24.2-36.6)
[2020-11-20 13:31] LABS: Hematocrit 42.7 % (35.5-45.6); Hemoglobin 13.7 gm/dl (11.8-15.2); Mean Corpuscular HGB Conc 32 % (32-34); Mean Corpuscular Volume 77 fl (84-94); Platelet Count 223 K/mm3 (140-440); Red Blood Count 5.55 M/mm3 (3.65-5.03)
[2020-11-20 13:44] LABS: Alanine Aminotransferase 16 units/L (7-56); Albumin 3.8 g/dL (3.9-5); BUN/Creatinine Ratio 16; Blood Urea Nitrogen 16 mg/dL (9-20); Calcium 8.8 mg/dL (8.4-10.2); Hemolysis Index 14
[2020-11-20] MEDS ORDERED: KETOROLAC 30 MG/1 ML INJ IV ONE (13:56)
[2020-11-20] MEDS ORDERED: FUROSEMIDE 40 MG/4 ML INJ IV ONE (13:56)
--- NOTE | 2020-11-20 14:07 | Emergency Department Report ---
ED General Adult HPI - General Chief complaint: Medical Clearance Stated complaint: FLUID DRAINAGE Time Seen by Provider: 11/20/20 12:14 Source: patient Mode of arrival: Ambulatory Limitations: No Limitations - History of Present Illness Initial comments: Patient is a 30-year-old male with past medical history of morbid obesity congestive heart failure hypertension who is presenting with swelling and pain to his lower abdomen. Patient states he is compliant with his Lasix. He was sent in by his primary care physician to "have fluid drained". Patient states that over the last 3 days he has had increased swelling pain and redness to the lower abdomen from the level of the umbilicus down through his pannus. Of the redness extends from flank to flank. Had a fever of 103.2 yesterday evening. He denies any nausea vomiting. Patient does have some shortness of breath with exertion but no more so than normal. Denies any chest pain cough cold or congestion at this time. - Related Data Home Medications Medication Instructions Recorded Confirmed Last Taken buPROPion SR [Wellbutrin SR] 150 mg PO BID 11/04/17 01/11/19 Unknown Previous Rx's Medication Instructions Recorded Last Taken Type Clobetasol 0.05% [Temovate] 1 applic TP BID #1 tube 10/23/18 Unknown Rx Potassium Chloride [Klor-Con M10] 20 meq PO QDAY 30 Days tab.er.prt 10/23/18 Unknown Rx Doxycycline Hyclate [Doxycycline 100 mg PO Q12HR 7 Days #14 tab 01/12/19 Unknown Rx Hyclate TAB] Furosemide [Lasix TAB] 40 mg PO QDAY #60 tablet 01/31/20 Unknown Rx Ipratropium/Albuterol Sulfate 1 ampul IH Q6HR #50 ampul.neb 01/31/20 Unknown Rx [DUONEB *Not for PRN Use*] Nicotine [Habitrol] 14 mg TD QDAY #20 patch 01/31/20 Unknown Rx Pantoprazole [Protonix TAB] 20 mg PO QDAY #30 tablet.dr 01/31/20 Unknown Rx Potassium Chloride [K-Dur] 20 meq PO QDAY #30 tablet 01/31/20 Unknown Rx Prednisone [predniSONE 10 mg 10 mg PO .TAPER #1 tab.ds.pk 01/31/20 Unknown Rx (6-Day Pack, 21 Tabs)] levoFLOXacin [Levaquin] 750 mg PO QDAY #7 tablet 01/31/20 Unknown Rx Allergies Allergy/AdvReac Type Severity Reaction Status Date / Time clindamycin Allergy Unknown Verified 01/11/19 21:28 latex Allergy Unknown Verified 10/20/18 10:36 metformin Allergy Unknown Verified 01/11/19 21:28 vancomycin Allergy Hives Verified 08/07/17 16:25 ED Review of Systems ROS: Stated complaint: FLUID DRAINAGE Other details as noted in HPI Comment: All other systems reviewed and negative ED Past Medical Hx - Past Medical History Previous Medical History?: Yes Hx Hypertension: Yes Hx Congestive Heart Failure: Yes Hx Diabetes: Yes (possible borderline DM) Hx Deep Vein Thrombosis: No Hx Psychiatric Treatment: Yes (Depression) Hx Asthma: Yes Additional medical history: morbidly obese, HOME OXYGEN @ 2LPM NASAL CANULLA, lymphedema - Surgical History Hx Pacemaker: No Hx Internal Defibrillator: No - Social History Smoking Status: Current Every Day Smoker - Medications Home Medications: Home Medications Medication Instructions Recorded Confirmed Last Taken Type buPROPion SR [Wellbutrin SR] 150 mg PO BID 11/04/17 01/11/19 Unknown History Clobetasol 0.05% [Temovate] 1 applic TP BID #1 tube 10/23/18 01/11/19 Unknown Rx Potassium Chloride [Klor-Con M10] 20 meq PO QDAY 30 Days tab.er.prt 10/23/18 01/11/19 Unknown Rx Doxycycline Hyclate [Doxycycline 100 mg PO Q12HR 7 Days #14 tab 01/12/19 Unknown Rx Hyclate TAB] Furosemide [Lasix TAB] 40 mg PO QDAY #60 tablet 01/31/20 Unknown Rx Ipratropium/Albuterol Sulfate 1 ampul IH Q6HR #50 ampul.neb 01/31/20 Unknown Rx [DUONEB *Not for PRN Use*] Nicotine [Habitrol] 14 mg TD QDAY #20 patch 01/31/20 Unknown Rx Pantoprazole [Protonix TAB] 20 mg PO QDAY #30 tablet.dr 01/31/20 Unknown Rx Potassium Chloride [K-Dur] 20 meq PO QDAY #30 tablet 01/31/20 Unknown Rx Prednisone [predniSONE 10 mg 10 mg PO .TAPER #1 tab.ds.pk 01/31/20 Unknown Rx (6-Day Pack, 21 Tabs)] levoFLOXacin [Levaquin] 750 mg PO QDAY #7 tablet 01/31/20 Unknown Rx ED Physical Exam - General Limitations: No Limitations General appearance: alert, in no apparent distress - Head Head exam: Present: atraumatic, normocephalic - Eye Eye exam: Present: normal appearance. Absent: EOMI - ENT ENT exam: Present: mucous membranes moist - Neck Neck exam: Present: normal inspection - Respiratory Respiratory exam: Present: normal lung sounds bilaterally. Absent: respiratory distress, wheezes, rales, rhonchi - Cardiovascular Cardiovascular Exam: Present: regular rate, normal rhythm, normal heart sounds. Absent: systolic murmur, diastolic murmur, rubs, gallop - GI/Abdominal GI/Abdominal exam: Present: distended, tenderness, normal bowel sounds. Absent: guarding, rebound - Rectal Rectal exam: Present: deferred - Extremities Exam Extremities exam: Present: normal inspection - Back Exam Back exam: Present: normal inspection - Neurological Exam Neurological exam: Present: alert, oriented X3 - Psychiatric Psychiatric exam: Present: normal affect, normal mood - Skin Skin exam: Present: warm, dry, intact. Absent: normal color, rash - Expanded Skin Exam Expanded 1 - Skin induration with warmth and tenderness. Near the umbilicus is a small wound with some purulent drainage. No obvious fluctuant areas. ED Course Vital Signs 11/20/20 12:13 Temperature 98.2 F Pulse Rate 88 Respiratory 20 Rate Blood Pressure 112/66 [Right] O2 Sat by Pulse 96 Oximetry ED Medical Decision Making - Lab Data Result diagrams: 11/20/20 12:39 11/20/20 12:39 Lab Results 11/20/20 11/20/20 11/20/20 Range/Units 12:39 12:39 12:39 WBC 14.1 H (4.5-11.0) K/mm3 RBC 5.55 H (3.65-5.03) M/mm3 Hgb 13.7 (11.8-15.2) gm/dl Hct 42.7 (35.5-45.6) % MCV 77 L (84-94) fl MCH 25 L (28-32) pg MCHC 32 (32-34) % RDW 20.0 H (13.2-15.2) % Plt Count 223 (140-440) K/mm3 PT 14.1 (12.2-14.9) Sec. INR 1.10 (0.87-1.13) APTT 28.3 (24.2-36.6) Sec. Sodium 140 (137-145) mmol/L Potassium 4.1 (3.6-5.0) mmol/L Chloride 101.4 (98-107) mmol/L Carbon Dioxide 24 (22-30) mmol/L Anion Gap 19 mmol/L BUN 16 (9-20) mg/dL Creatinine 1.0 (0.8-1.3) mg/dL Estimated GFR > 60 ml/min BUN/Creatinine Ratio 16 % Glucose 98 (75-100) mg/dL Calcium 8.8 (8.4-10.2) mg/dL Total Bilirubin 0.40 (0.1-1.2) mg/dL AST 14 (5-40) units/L ALT 16 (7-56) units/L Alkaline Phosphatase 98 (35-129) units/L NT-Pro-B Natriuret Pep 126.7 (0-450) pg/mL Total Protein 7.1 (6.3-8.2) g/dL Albumin 3.8 L (3.9-5) g/dL Albumin/Globulin Ratio 1.2 % - Medical Decision Making Patient is presenting thinking that he needs diuresis. Per my exam the patient appears to have is large area of cellulitis on the lower abdomen. Patient is normally has a large amount of edema in the lower abdomen as well as his lower extremities but the redness is new. Patient has had fevers and elevated white count. Patient started on cefazolin will be admitted to the hospitalist service. Critical care attestation.: If time is entered above; I have spent that time in minutes in the direct care of this critically ill patient, excluding procedure time. ED Disposition Clinical Impression: Lymphedema, Cellulitis, abdominal wall, CHF (congestive heart failure) Disposition: OP ADMIT IP TO THIS HOSP Is pt being admited?: Yes Does the pt Need Aspirin: No Condition: Stable Time of Disposition: 14:10
--- NOTE | 2020-11-20 14:21 | History and Physical Report ---
History of Present Illness Chief complaint: My stomach is red and it hurts a little bit History of present illness: 30 YO Male with Super Morbid Obesity, Diastolic CHF, Chronic respiratory Failure on 2L Home Oxygen, Obesity Hypoventilation Syndrome, DM, Asthma, Nicotine Dependence, Lymphedema, GERD presents to ED for evaluation. Pt reports "it hurts a little bit down there and my doctor sent me and to have fluid drained". Patient states he has experienced pain to his lower abdomen over the past 3 days with persistently worsening symptoms over the same timeframe. Patient knowledges fever to 103.2 F, abdominal redness, tenderness, swelling. Patient was seen and evaluated by his primary care physician and instructed to seek further care. Patient transported to [facility] for further care and evaluation of the aforementioned symptoms. Patient seen and evaluated in the emergency department. All lab and imaging studies reviewed. Patient found to have panniculitis, systemic plantar response syndrome, as well as lymphedema. Patient placed in observation status and admitted to medical floor and initiated on IV antibiotic therapy. Patient denies chills, chest pain, palpitations, productive cough, skin rash, or recent ill contacts, or known exposure to COVID- 19. Prior admission on 08/30/2019 reviewed. All medication listed at time of admission has been reconciled. Past History Past Medical History: diabetes, heart failure, other (See HPI) Past Surgical History: No surgical history, Other (Reviewed) Social history: smoking Family history: hypertension Medications and Allergies Allergies Allergy/AdvReac Type Severity Reaction Status Date / Time clindamycin Allergy Unknown Verified 01/11/19 21:28 latex Allergy Unknown Verified 10/20/18 10:36 metformin Allergy Unknown Verified 01/11/19 21:28 vancomycin Allergy Hives Verified 08/07/17 16:25 Home Medications Medication Instructions Recorded Confirmed Last Taken Type buPROPion SR [Wellbutrin SR] 150 mg PO BID 11/04/17 01/11/19 Unknown History Clobetasol 0.05% [Temovate] 1 applic TP BID #1 tube 10/23/18 01/11/19 Unknown Rx Potassium Chloride [Klor-Con M10] 20 meq PO QDAY 30 Days tab.er.prt 10/23/18 01/11/19 Unknown Rx Doxycycline Hyclate [Doxycycline 100 mg PO Q12HR 7 Days #14 tab 01/12/19 Unknown Rx Hyclate TAB] Furosemide [Lasix TAB] 40 mg PO QDAY #60 tablet 01/31/20 Unknown Rx Ipratropium/Albuterol Sulfate 1 ampul IH Q6HR #50 ampul.neb 01/31/20 Unknown Rx [DUONEB *Not for PRN Use*] Nicotine [Habitrol] 14 mg TD QDAY #20 patch 01/31/20 Unknown Rx Pantoprazole [Protonix TAB] 20 mg PO QDAY #30 tablet.dr 01/31/20 Unknown Rx Potassium Chloride [K-Dur] 20 meq PO QDAY #30 tablet 01/31/20 Unknown Rx Prednisone [predniSONE 10 mg 10 mg PO .TAPER #1 tab.ds.pk 01/31/20 Unknown Rx (6-Day Pack, 21 Tabs)] levoFLOXacin [Levaquin] 750 mg PO QDAY #7 tablet 01/31/20 Unknown Rx Active Meds: Active Medications Acetaminophen (Acetaminophen 325 Mg Tab) 650 mg PO Q4H PRN PRN Reason: Pain MILD(1-3)/Fever >100.5/ARENAS Cefazolin Sodium 2 gm/ Sodium (Chloride) 100 mls @ 200 mls/hr IV ONCE ONE; Protocol Stop: 11/20/20 14:24 Ondansetron HCl (Ondansetron 4 Mg/2 Ml Inj) 4 mg IV Q8H PRN PRN Reason: Nausea And Vomiting Sodium Chloride (Sodium Chloride 0.9% 10 Ml Flush Syringe) 10 ml IV BID MICHELLE Sodium Chloride (Sodium Chloride 0.9% 10 Ml Flush Syringe) 10 ml IV PRN PRN PRN Reason: LINE FLUSH Review of Systems Constitutional: no weight loss, no weight gain, no fever, no chills Ears, nose, mouth and throat: no ear pain, no ear discharge, no decreased hearing, no nose pain, no sinus pain Cardiovascular: no chest pain, no orthopnea, no edema, no syncope, no lightheade dness Respiratory: no cough, no cough with sputum, no hemoptysis, no shortness of breath Gastrointestinal: no nausea, no vomiting, no diarrhea Genitourinary Male: no flank pain, no discharge, no urinary frequency, no urinary hesitancy, no nocturia, no incontinence Rectal: no pain, no incontinence, no bleeding Musculoskeletal: no neck stiffness, no neck pain, no shooting arm pain, no arm numbness/tingling, no low back pain, no shooting leg pain, no leg numbness/tingling Integumentary: rash, redness, no pruritis, no wounds Neurological: no transient paralysis, no weakness, no parathesias, no numbness, no seizures, no syncope Psychiatric: no anxiety, no hypersomnia, no change in appetite, no change in libido, no suicidal ideation Endocrine: no cold intolerance, no heat intolerance, no excessive thirst, no polydipsia, no excessive sweating, no flushing Hematologic/Lymphatic: lymphedema, no easy bruising, no easy bleeding Allergic/Immunologic: no allergic rhinitis, no wheezing, no persistent infections, no anaphylaxis Exam - Constitutional Vitals: Temp Pulse Resp BP Pulse Ox 98.2 F 88 16 136/59 96 11/20/20 12:13 11/20/20 14:12 11/20/20 14:12 11/20/20 14:12 11/20/20 14:12 General appearance: Present: mild distress, obese - EENT Eyes: Present: PERRL ENT: hearing intact, clear oral mucosa - Neck Neck: Present: supple, normal ROM - Respiratory Respiratory effort: normal Respiratory: bilateral: CTA - Cardiovascular Heart Sounds: Present: S1 & S2. Absent: rub, click - Extremities Extremities: pulses symmetrical, No edema Peripheral Pulses: within normal limits - Abdominal General gastrointestinal: Present: soft, non-tender, non-distended, normal bowel sounds Male genitourinary: Present: normal - Integumentary Integumentary: Present: clear, warm, dry - Musculoskeletal Musculoskeletal: gait normal, strength equal bilaterally - Psychiatric Psychiatric: appropriate mood/affect, intact judgment & insight - Neurologic Neurologic: CNII-XII intact, moves all extremities Results - Labs CBC & Chem 7: 11/20/20 12:39 11/20/20 12:39 Labs: Abnormal lab results 11/20/20 11/20/20 Range/Units 12:39 12:39 WBC 14.1 H (4.5-11.0) K/mm3 RBC 5.55 H (3.65-5.03) M/mm3 MCV 77 L (84-94) fl MCH 25 L (28-32) pg RDW 20.0 H (13.2-15.2) % Albumin 3.8 L (3.9-5) g/dL Assessment and Plan - Patient Problems (1) Cellulitis, abdominal wall Current Visit: Yes Status: Acute Plan to address problem: CBC, CMP, IV antibiotic therapy, supportive care, repeat CBC in a.m. (2) Systemic inflammatory response syndrome Current Visit: Yes Status: Acute Plan to address problem: CBC, BMP, IV antibiotic therapy, continue medical management. Repeat CBC in a.m. (3) Obesity hypoventilation syndrome Current Visit: Yes Status: Acute Plan to address problem: Balanced diet, increase physical activity at discharge, outpatient pulmonary follow-up for sleep study. Outpatient bariatric surgery follow-up. Patient counseled regarding balanced diet, carbohydrate and calorie counting, and meal planning. Behavior change counseling, +15 minutes. (4) Lymphedema Current Visit: Yes Status: Chronic Plan to address problem: Chronic, supportive care, outpatient vascular surgery follow-up. (5) DVT prophylaxis Current Visit: Yes Status: Acute Plan to address problem: SCD to bilateral lower extremities while in bed, patient is ambulatory.
[2020-11-20] MEDS ORDERED: ACETAMINOPHEN 325 MG TAB PO PRN (14:30)
[2020-11-20] MEDS ORDERED: ONDANSETRON 4 MG/2 ML INJ IV PRN (15:00)
[2020-11-20 15:12] LABS: Anisocytosis 1+; Band Neutrophils # (Manual) 0.7 K/mm3; Hypochromasia Few; Platelet Estimate Consistent w Auto; Total Cells Counted 100
[2020-11-21 09:42] LABS: Bilirubin,Urine NEG (Negative); Blood,Urine NEG (Negative); Color,Urine Yellow (Yellow); Hyaline Casts,Urine 1 /LPF; Mucus,Urine FEW /HPF; Protein,Urine <15 mg/dL mg/dL (Negative); Urobilinogen,Urine < 2.0 mg/dL (<2.0)
--- NOTE | 2020-11-21 10:25 | Electrocardiograph Report ---
[facility] Test Date: 2020-11-20 Test Time: 14:25:49 Pat Name: JANES BENNETT Department: Room: A377 1 Gender: M Sybase Developer: CÉSAR : 1990 Requested By: KASSY MESSER Order Number: [id number] Reading MD: Taj Mckay Measurements Intervals [place] Rate: 80 P: 40 AL: 167 QRS: -86 QRSD: 108 T: 55 QT: 404 QTc: 465 Interpretive Statements Sinus rhythm Incomplete RBBB and LAFB No previous ECG available for comparison Electronically Signed On 11-21-2020 10:24:53 EDT by Taj Mckay
--- NOTE | 2020-11-21 10:39 | Progress Note ---
Assessment and Plan Assessment and plan: -- Cellulitis, rash abdominal wall Current Visit: Yes Status: Acute Empiric antibiotics Rocephin, supportive care Follow cultures -- Systemic inflammatory response syndrome Current Visit: Yes Status: Acute CBC, BMP, IV antibiotic therapy, continue medical management. Repeat CBC in a.m. --Morbid obesity ; BMI 71.7 Current Visit: Yes Status: Acute Dietary modification , lifestyle changes, exercise as tolerated Weight reduction when medically stable Patient may benefit by bariatric surgical consultation for Weight reduction treatment medical versus surgical for both Counseled and advised in detail to increase physical activity at discharge, outpatient pulmonary follow-up for sleep study. Outpatient bariatric surgery follow-up. Patient counseled regarding balanced diet, carbohydrate and calorie counting, and meal planning. Behavior change counseling, +15 minutes. -- Lymphedema Current Visit: Yes Status: Chronic Chronic, supportive care, outpatient vascular surgery follow-up. --DVT prophylaxis Current Visit: Yes Status: Acute SCD to bilateral lower extremities while in bed, patient is ambulatory. Closely monitor the patient and adjust the management as needed Plan of care reviewed with the patient and his nurse 11/21/2020; increased Lasix to 40 mg IV every 12 Closely monitor input output, supportive care Outpatient pulmonary evaluation for RUSSEL Outpatient bariatric surgical evaluation for weight reduction program History Interval history: I have seen and examined the patient at the bedside this morning Patient's chart and medications reviewed Patient complains of shortness of breath and worsening leg edema Morbidly obese BMI of 71.7 Mild distress Vital signs noted Hospitalist Physical - Constitutional Vitals: Temp Pulse Resp BP Pulse Ox 98.5 F 64 16 125/63 93 11/21/20 03:54 11/21/20 03:54 11/21/20 04:29 11/21/20 03:54 11/21/20 03:54 General appearance: Present: mild distress, well-nourished, obese (Morbidly obese) - EENT Eyes: Present: PERRL, EOM intact - Neck Neck: Present: supple, normal ROM - Respiratory Respiratory effort: normal Respiratory: bilateral: diminished, rhonchi, negative: rales, wheezing - Cardiovascular Rhythm: regular Heart Sounds: Present: S1 & S2 - Extremities Extremities: no ischemia, pulses intact Extremity abnormal: edema, other (Obese) - Abdominal General gastrointestinal: soft, non-tender, non-distended, normal bowel sounds - Integumentary Integumentary: Present: clear, warm - Psychiatric Psychiatric: appropriate mood/affect, cooperative - Neurologic Neurologic: CNII-XII intact, moves all extremities HEART Score - HEART Score Troponin: Troponin T < 0.010 ng/mL (0.00-0.029) 11/20/20 14:21 Results - Labs CBC & Chem 7: 11/20/20 12:39 11/20/20 12:39 Labs: Laboratory Last Values WBC 14.1 K/mm3 (4.5-11.0) H 11/20/20 12:39 RBC 5.55 M/mm3 (3.65-5.03) H 11/20/20 12:39 Hgb 13.7 gm/dl (11.8-15.2) 11/20/20 12:39 Hct 42.7 % (35.5-45.6) 11/20/20 12:39 MCV 77 fl (84-94) L 11/20/20 12:39 MCH 25 pg (28-32) L 11/20/20 12:39 MCHC 32 % (32-34) 11/20/20 12:39 RDW 20.0 % (13.2-15.2) H 11/20/20 12:39 Plt Count 223 K/mm3 (140-440) 11/20/20 12:39 Add Manual Diff Complete 11/20/20 12:39 Total Counted 100 11/20/20 12:39 Seg Neuts % (Manual) 67.0 % (40.0-70.0) 11/20/20 12:39 Band Neutrophils % 5.0 % 11/20/20 12:39 Lymphocytes % (Manual) 21.0 % (13.4-35.0) 11/20/20 12:39 Monocytes % (Manual) 4.0 % (0.0-7.3) 11/20/20 12:39 Eosinophils % (Manual) 1.0 % (0.0-4.3) 11/20/20 12:39 Basophils % (Manual) 1.0 % (0.0-1.8) 11/20/20 12:39 Metamyelocytes % 1.0 % 11/20/20 12:39 Nucleated RBC % 1.0 % (0.0-0.9) H 11/20/20 12:39 Seg Neutrophils # Man 9.4 K/mm3 (1.8-7.7) H 11/20/20 12:39 Band Neutrophils # 0.7 K/mm3 11/20/20 12:39 Lymphocytes # (Manual) 3.0 K/mm3 (1.2-5.4) 11/20/20 12:39 Abs React Lymphs (Man) 0.0 K/mm3 11/20/20 12:39 Monocytes # (Manual) 0.6 K/mm3 (0.0-0.8) 11/20/20 12:39 Eosinophils # (Manual) 0.1 K/mm3 (0.0-0.4) 11/20/20 12:39 Basophils # (Manual) 0.1 K/mm3 (0.0-0.1) 11/20/20 12:39 Metamyelocytes # 0.1 K/mm3 11/20/20 12:39 Myelocytes # 0.0 K/mm3 11/20/20 12:39 Promyelocytes # 0.0 K/mm3 11/20/20 12:39 Blast Cells # 0.0 K/mm3 11/20/20 12:39 WBC Morphology Not Reportable 11/20/20 12:39 Hypersegmented Neuts Not Reportable 11/20/20 12:39 Hyposegmented Neuts Not Reportable 11/20/20 12:39 Hypogranular Neuts Not Reportable 11/20/20 12:39 Smudge Cells Not Reportable 11/20/20 12:39 Toxic Granulation Not Reportable 11/20/20 12:39 Toxic Vacuolation Not Reportable 11/20/20 12:39 Dohle Bodies Not Reportable 11/20/20 12:39 Pelger-Huet Anomaly Not Reportable 11/20/20 12:39 Noa Rods Not Reportable 11/20/20 12:39 Platelet Estimate Consistent w auto 11/20/20 12:39 Clumped Platelets Not Reportable 11/20/20 12:39 Plt Clumps, EDTA Not Reportable 11/20/20 12:39 Large Platelets Not Reportable 11/20/20 12:39 Giant Platelets Not Reportable 11/20/20 12:39 Platelet Satelliting Not Reportable 11/20/20 12:39 Plt Morphology Comment Not Reportable 11/20/20 12:39 RBC Morphology Not Reportable 11/20/20 12:39 Dimorphic RBCs Not Reportable 11/20/20 12:39 Polychromasia Not Reportable 11/20/20 12:39 Hypochromasia Few 11/20/20 12:39 Poikilocytosis Not Reportable 11/20/20 12:39 Anisocytosis 1+ 11/20/20 12:39 Microcytosis Not Reportable 11/20/20 12:39 Macrocytosis Not Reportable 11/20/20 12:39 Spherocytes Not Reportable 11/20/20 12:39 Pappenheimer Bodies Not Reportable 11/20/20 12:39 Sickle Cells Not Reportable 11/20/20 12:39 Target Cells Not Reportable 11/20/20 12:39 Tear Drop Cells Not Reportable 11/20/20 12:39 Ovalocytes Not Reportable 11/20/20 12:39 Helmet Cells Not Reportable 11/20/20 12:39 [place] Bodies Not Reportable 11/20/20 12:39 [place] Rings Not Reportable 11/20/20 12:39 [place] Cells Not Reportable 11/20/20 12:39 Bite Cells Not Reportable 11/20/20 12:39 Crenated Cell Not Reportable 11/20/20 12:39 Elliptocytes Not Reportable 11/20/20 12:39 Acanthocytes (Spur) Not Reportable 11/20/20 12:39 Rouleaux Not Reportable 11/20/20 12:39 Hemoglobin C Crystals Not Reportable 11/20/20 12:39 Schistocytes Not Reportable 11/20/20 12:39 Malaria parasites Not Reportable 11/20/20 12:39 Cuco Bodies Not Reportable 11/20/20 12:39 Hem Pathologist Commnt No 11/20/20 12:39 PT 14.1 Sec. (12.2-14.9) 11/20/20 12:39 INR 1.10 (0.87-1.13) 11/20/20 12:39 APTT 28.3 Sec. (24.2-36.6) 11/20/20 12:39 Sodium 140 mmol/L (137-145) 11/20/20 12:39 Potassium 4.1 mmol/L (3.6-5.0) 11/20/20 12:39 Chloride 101.4 mmol/L (98-107) 11/20/20 12:39 Carbon Dioxide 24 mmol/L (22-30) 11/20/20 12:39 Anion Gap 19 mmol/L 11/20/20 12:39 BUN 16 mg/dL (9-20) 11/20/20 12:39 Creatinine 1.0 mg/dL (0.8-1.3) 11/20/20 12:39 Estimated GFR > 60 ml/min 11/20/20 12:39 BUN/Creatinine Ratio 16 % 11/20/20 12:39 Glucose 98 mg/dL (75-100) 11/20/20 12:39 Lactic Acid 0.90 mmol/L (0.7-2.0) 11/20/20 18:07 Calcium 8.8 mg/dL (8.4-10.2) 11/20/20 12:39 Total Bilirubin 0.40 mg/dL (0.1-1.2) 11/20/20 12:39 AST 14 units/L (5-40) 11/20/20 12:39 ALT 16 units/L (7-56) 11/20/20 12:39 Alkaline Phosphatase 98 units/L (35-129) 11/20/20 12:39 Troponin T < 0.010 ng/mL (0.00-0.029) 11/20/20 14:21 NT-Pro-B Natriuret Pep 126.7 pg/mL (0-450) 11/20/20 12:39 Total Protein 7.1 g/dL (6.3-8.2) 11/20/20 12:39 Albumin 3.8 g/dL (3.9-5) L 11/20/20 12:39 Albumin/Globulin Ratio 1.2 % 11/20/20 12:39 Urine Color Yellow (Yellow) 11/21/20 09:00 Urine Turbidity Clear (Clear) 11/21/20 09:00 Urine pH 6.0 (5.0-7.0) 11/21/20 09:00 Ur Specific [place] 1.027 (1.003-1.030) 11/21/20 09:00 Urine Protein <15 mg/dl mg/dL (Negative) 11/21/20 09:00 Urine Glucose (UA) Neg mg/dL (Negative) 11/21/20 09:00 Urine Ketones Neg mg/dL (Negative) 11/21/20 09:00 Urine Blood Neg (Negative) 11/21/20 09:00 Urine Nitrite Neg (Negative) 11/21/20 09:00 Urine Bilirubin Neg (Negative) 11/21/20 09:00 Urine Urobilinogen < 2.0 mg/dL (<2.0) 11/21/20 09:00 Ur Leukocyte Esterase Neg (Negative) 11/21/20 09:00 Urine WBC (Auto) 1.0 /HPF (0.0-6.0) 11/21/20 09:00 Urine RBC (Auto) 1.0 /HPF (0.0-6.0) 11/21/20 09:00 U Epithel Cells (Auto) 1.0 /HPF (0-13.0) 11/21/20 09:00 Hyaline Casts 1 /LPF 11/21/20 09:00 Urine Mucus Few /HPF 11/21/20 09:00 Microbiology: Microbiology 11/20/20 14:21 Peripheral/Venous Blood Culture - Preliminary Culture in Progress 11/20/20 14:16 Peripheral/Venous Blood Culture - Preliminary Culture in Progress Jones/IV: Voiding Method Toilet Active Medications - Current Medications Current Medications: Generic Name Dose Route Start Last Admin Trade Name Freq PRN Reason Stop Dose Admin Acetaminophen 650 mg 11/20/20 14:30 Acetaminophen 325 Mg Tab PO Q4H PRN Pain MILD(1-3)/Fever >100.5/ARENAS Furosemide 40 mg 11/21/20 18:00 Furosemide 40 Mg/4 Ml Inj IV 0600,1800 MICHELLE Cefazolin Sodium 2 gm/ Sodium 100 mls @ 200 mls/hr 11/21/20 08:00 11/21/20 08:43 Chloride IV 200 mls/hr Q8H MICHELLE Administration Protocol Ondansetron HCl 4 mg 11/20/20 15:00 Ondansetron 4 Mg/2 Ml Inj IV Q8H PRN Nausea And Vomiting Sodium Chloride 10 ml 11/20/20 15:00 11/21/20 09:18 Sodium Chloride 0.9% 10 Ml Flush Syringe IV 10 ml BID MICHELLE Administration Sodium Chloride 10 ml 11/20/20 15:00 Sodium Chloride 0.9% 10 Ml Flush Syringe IV PRN PRN LINE FLUSH
[2020-11-21] MEDS: FUROSEMIDE 40 MG/4 ML INJ IV SCH ×2 (12:00→17:23)
[2020-11-21] MEDS: NICOTINE 14 MG/24 HR PATCH TD SCH (12:00)
[2020-11-21] MEDS: buPROPion SR 150 MG TAB PO SCH ×2 (13:59→21:17)
[2020-11-21] MEDS: CLOBETASOL 0.05% CREAM 15 GM TP SCH (21:17)
[2020-11-22] MEDS: FUROSEMIDE 40 MG/4 ML INJ IV SCH ×2 (05:31→17:51)
[2020-11-22 08:28] LABS: Hematocrit 40.1 % (35.5-45.6); Mean Corpuscular HGB Conc 33 % (32-34); Mean Corpuscular Volume 76 fl (84-94); Platelet Count 199 K/mm3 (140-440); Red Blood Count 5.26 M/mm3 (3.65-5.03); Red Cell Distribution Width 19.3 % (13.2-15.2)
[2020-11-22 08:46] LABS: BUN/Creatinine Ratio 16; Blood Urea Nitrogen 16 mg/dL (9-20); Calcium 8.8 mg/dL (8.4-10.2); Hemolysis Index 22
[2020-11-22] MEDS: buPROPion SR 150 MG TAB PO SCH ×2 (09:29→21:46)
[2020-11-22] MEDS: NICOTINE 14 MG/24 HR PATCH TD SCH (09:29)
[2020-11-22] MEDS: CLOBETASOL 0.05% CREAM 15 GM TP SCH ×2 (10:00→21:46)
[2020-11-22 10:41] LABS: Band Neutrophils # (Manual) 0.1 K/mm3; Total Cells Counted 100
[2020-11-22 10:47] LABS: Anisocytosis Few; Hypochromasia Few; Platelet Estimate Consistent w Auto
--- NOTE | 2020-11-22 19:31 | Progress Note ---
Assessment and Plan Assessment and plan: -- Cellulitis, rash abdominal wall Current Visit: Yes Status: Acute Empiric antibiotics Rocephin, supportive care Symptoms significantly improved May DC on oral antibiotics -- Systemic inflammatory response syndrome Current Visit: Yes Status: Acute CBC, BMP, IV antibiotic therapy, continue medical management. Repeat CBC in a.m. --Morbid obesity ; BMI 71.7 Current Visit: Yes Status: Acute Dietary modification , lifestyle changes, exercise as tolerated Weight reduction when medically stable Patient may benefit by bariatric surgical consultation for Weight reduction treatment medical versus surgical for both Counseled and advised in detail to increase physical activity at discharge, outpatient pulmonary follow-up for sleep study. Outpatient bariatric surgery follow-up. Patient counseled regarding balanced diet, carbohydrate and calorie counting, and meal planning. Behavior change counseling, +15 minutes. -- Lymphedema Current Visit: Yes Status: Chronic Chronic, supportive care, outpatient vascular surgery follow-up. IV Lasix, supportive care --DVT prophylaxis Current Visit: Yes Status: Acute SCD to bilateral lower extremities while in bed, patient is ambulatory. Closely monitor the patient and adjust the management as needed Plan of care reviewed with the patient and his nurse 11/21/2020; increased Lasix to 40 mg IV every 12 Closely monitor input output, supportive care Outpatient pulmonary evaluation for RUSSEL Outpatient bariatric surgical evaluation for weight reduction program 11/22/2020, continue IV Lasix, input output Possible discharge home tomorrow if stable History Interval history: I have seen and examined the patient at the bedside Patient feels better wants to go home No new complaints, vital signs noted Hospitalist Physical - Constitutional Vitals: Temp Pulse Resp BP Pulse Ox 98.7 F 67 18 124/62 95 11/22/20 16:20 11/22/20 16:20 11/22/20 16:20 11/22/20 16:20 11/22/20 16:20 General appearance: Present: mild distress, well-nourished, obese (Morbidly obese) - EENT Eyes: Present: PERRL, EOM intact - Neck Neck: Present: supple, normal ROM - Respiratory Respiratory effort: normal Respiratory: bilateral: diminished, rales, negative: rhonchi, wheezing - Cardiovascular Rhythm: regular Heart Sounds: Present: S1 & S2 - Extremities Extremities: no ischemia Extremity abnormal: edema, other (Lymphedema bilateral) - Abdominal General gastrointestinal: soft, non-tender, non-distended, normal bowel sounds - Integumentary Integumentary: Present: clear, warm - Psychiatric Psychiatric: appropriate mood/affect, cooperative - Neurologic Neurologic: moves all extremities HEART Score - HEART Score Troponin: Troponin T < 0.010 ng/mL (0.00-0.029) 11/20/20 14:21 Results - Labs CBC & Chem 7: 11/22/20 07:55 11/22/20 07:55 Labs: Laboratory Last Values WBC 11.0 K/mm3 (4.5-11.0) 11/22/20 07:55 RBC 5.26 M/mm3 (3.65-5.03) H 11/22/20 07:55 Hgb 13.0 gm/dl (11.8-15.2) 11/22/20 07:55 Hct 40.1 % (35.5-45.6) 11/22/20 07:55 MCV 76 fl (84-94) L 11/22/20 07:55 MCH 25 pg (28-32) L 11/22/20 07:55 MCHC 33 % (32-34) 11/22/20 07:55 RDW 19.3 % (13.2-15.2) H 11/22/20 07:55 Plt Count 199 K/mm3 (140-440) 11/22/20 07:55 Add Manual Diff Complete 11/22/20 07:55 Total Counted 100 11/22/20 07:55 Seg Neuts % (Manual) 64.0 % (40.0-70.0) 11/22/20 07:55 Band Neutrophils % 1.0 % 11/22/20 07:55 Lymphocytes % (Manual) 25.0 % (13.4-35.0) 11/22/20 07:55 Monocytes % (Manual) 5.0 % (0.0-7.3) 11/22/20 07:55 Eosinophils % (Manual) 2.0 % (0.0-4.3) 11/22/20 07:55 Basophils % (Manual) 1.0 % (0.0-1.8) 11/20/20 12:39 Metamyelocytes % 3.0 % 11/22/20 07:55 Nucleated RBC % Not Reportable 11/22/20 07:55 Seg Neutrophils # Man 7.0 K/mm3 (1.8-7.7) 11/22/20 07:55 Band Neutrophils # 0.1 K/mm3 11/22/20 07:55 Lymphocytes # (Manual) 2.8 K/mm3 (1.2-5.4) 11/22/20 07:55 Abs React Lymphs (Man) 0.0 K/mm3 11/22/20 07:55 Monocytes # (Manual) 0.6 K/mm3 (0.0-0.8) 11/22/20 07:55 Eosinophils # (Manual) 0.2 K/mm3 (0.0-0.4) 11/22/20 07:55 Basophils # (Manual) 0.0 K/mm3 (0.0-0.1) 11/22/20 07:55 Metamyelocytes # 0.3 K/mm3 11/22/20 07:55 Myelocytes # 0.0 K/mm3 11/22/20 07:55 Promyelocytes # 0.0 K/mm3 11/22/20 07:55 Blast Cells # 0.0 K/mm3 11/22/20 07:55 WBC Morphology Not Reportable 11/22/20 07:55 Hypersegmented Neuts Not Reportable 11/22/20 07:55 Hyposegmented Neuts Not Reportable 11/22/20 07:55 Hypogranular Neuts Not Reportable 11/22/20 07:55 Smudge Cells Not Reportable 11/22/20 07:55 Toxic Granulation Not Reportable 11/22/20 07:55 Toxic Vacuolation Not Reportable 11/22/20 07:55 Dohle Bodies Not Reportable 11/22/20 07:55 Pelger-Huet Anomaly Not Reportable 11/22/20 07:55 Noa Rods Not Reportable 11/22/20 07:55 Platelet Estimate Consistent w auto 11/22/20 07:55 Clumped Platelets Not Reportable 11/22/20 07:55 Plt Clumps, EDTA Not Reportable 11/22/20 07:55 Large Platelets Not Reportable 11/22/20 07:55 Giant Platelets Not Reportable 11/22/20 07:55 Platelet Satelliting Not Reportable 11/22/20 07:55 Plt Morphology Comment Not Reportable 11/22/20 07:55 RBC Morphology Not Reportable 11/22/20 07:55 Dimorphic RBCs Not Reportable 11/22/20 07:55 Polychromasia Not Reportable 11/22/20 07:55 Hypochromasia Few 11/22/20 07:55 Poikilocytosis Not Reportable 11/22/20 07:55 Anisocytosis Few 11/22/20 07:55 Microcytosis Not Reportable 11/22/20 07:55 Macrocytosis Not Reportable 11/22/20 07:55 Spherocytes Not Reportable 11/22/20 07:55 Pappenheimer Bodies Not Reportable 11/22/20 07:55 Sickle Cells Not Reportable 11/22/20 07:55 Target Cells Not Reportable 11/22/20 07:55 Tear Drop Cells Not Reportable 11/22/20 07:55 Ovalocytes Not Reportable 11/22/20 07:55 Helmet Cells Not Reportable 11/22/20 07:55 [place] Bodies Not Reportable 11/22/20 07:55 [place] Rings Not Reportable 11/22/20 07:55 [place] Cells Not Reportable 11/22/20 07:55 Bite Cells Not Reportable 11/22/20 07:55 Crenated Cell Not Reportable 11/22/20 07:55 Elliptocytes Not Reportable 11/22/20 07:55 Acanthocytes (Spur) Not Reportable 11/22/20 07:55 Rouleaux Not Reportable 11/22/20 07:55 Hemoglobin C Crystals Not Reportable 11/22/20 07:55 Schistocytes Not Reportable 11/22/20 07:55 Malaria parasites Not Reportable 11/22/20 07:55 Cuco Bodies Not Reportable 11/22/20 07:55 Hem Pathologist Commnt No 11/22/20 07:55 PT 14.1 Sec. (12.2-14.9) 11/20/20 12:39 INR 1.10 (0.87-1.13) 11/20/20 12:39 APTT 28.3 Sec. (24.2-36.6) 11/20/20 12:39 Sodium 139 mmol/L (137-145) 11/22/20 07:55 Potassium 4.5 mmol/L (3.6-5.0) 11/22/20 07:55 Chloride 101.0 mmol/L (98-107) 11/22/20 07:55 Carbon Dioxide 29 mmol/L (22-30) 11/22/20 07:55 Anion Gap 14 mmol/L 11/22/20 07:55 BUN 16 mg/dL (9-20) 11/22/20 07:55 Creatinine 1.0 mg/dL (0.8-1.3) 11/22/20 07:55 Estimated GFR > 60 ml/min 11/22/20 07:55 BUN/Creatinine Ratio 16 % 11/22/20 07:55 Glucose 94 mg/dL (75-100) 11/22/20 07:55 Lactic Acid 0.90 mmol/L (0.7-2.0) 11/20/20 18:07 Calcium 8.8 mg/dL (8.4-10.2) 11/22/20 07:55 Phosphorus 3.50 mg/dL (2.5-4.5) 11/22/20 07:55 Magnesium 2.20 mg/dL (1.7-2.3) 11/22/20 07:55 Total Bilirubin 0.40 mg/dL (0.1-1.2) 11/20/20 12:39 AST 14 units/L (5-40) 11/20/20 12:39 ALT 16 units/L (7-56) 11/20/20 12:39 Alkaline Phosphatase 98 units/L (35-129) 11/20/20 12:39 Troponin T < 0.010 ng/mL (0.00-0.029) 11/20/20 14:21 NT-Pro-B Natriuret Pep 126.7 pg/mL (0-450) 11/20/20 12:39 Total Protein 7.1 g/dL (6.3-8.2) 11/20/20 12:39 Albumin 3.8 g/dL (3.9-5) L 11/20/20 12:39 Albumin/Globulin Ratio 1.2 % 11/20/20 12:39 Urine Color Yellow (Yellow) 11/21/20 09:00 Urine Turbidity Clear (Clear) 11/21/20 09:00 Urine pH 6.0 (5.0-7.0) 11/21/20 09:00 Ur Specific [place] 1.027 (1.003-1.030) 11/21/20 09:00 Urine Protein <15 mg/dl mg/dL (Negative) 11/21/20 09:00 Urine Glucose (UA) Neg mg/dL (Negative) 11/21/20 09:00 Urine Ketones Neg mg/dL (Negative) 11/21/20 09:00 Urine Blood Neg (Negative) 11/21/20 09:00 Urine Nitrite Neg (Negative) 11/21/20 09:00 Urine Bilirubin Neg (Negative) 11/21/20 09:00 Urine Urobilinogen < 2.0 mg/dL (<2.0) 11/21/20 09:00 Ur Leukocyte Esterase Neg (Negative) 11/21/20 09:00 Urine WBC (Auto) 1.0 /HPF (0.0-6.0) 11/21/20 09:00 Urine RBC (Auto) 1.0 /HPF (0.0-6.0) 11/21/20 09:00 U Epithel Cells (Auto) 1.0 /HPF (0-13.0) 11/21/20 09:00 Hyaline Casts 1 /LPF 11/21/20 09:00 Urine Mucus Few /HPF 11/21/20 09:00 Microbiology: Microbiology 11/20/20 14:16 Peripheral/Venous Blood Culture - Preliminary NO GROWTH AFTER 48 HOURS 11/20/20 14:21 Peripheral/Venous Blood Culture - Preliminary NO GROWTH AFTER 48 HOURS Jones/IV: Voiding Method Toilet Active Medications - Current Medications Current Medications: Generic Name Dose Route Start Last Admin Trade Name Freq PRN Reason Stop Dose Admin Acetaminophen 650 mg 11/20/20 14:30 Acetaminophen 325 Mg Tab PO Q4H PRN Pain MILD(1-3)/Fever >100.5/ARENAS Bupropion HCl 150 mg 11/21/20 11:00 11/22/20 09:29 Bupropion Sr 150 Mg Tab PO 150 mg BID MICHELLE Administration Clobetasol Propionate 1 applic 11/21/20 22:00 11/22/20 10:00 Clobetasol 0.05% Cream 15 Gm TP 1 applic BID MICHELLE Administration Furosemide 40 mg 11/21/20 11:00 11/22/20 17:51 Furosemide 40 Mg/4 Ml Inj IV 40 mg 0600,1800 MICHELLE Administration Cefazolin Sodium 2 gm/ Sodium 100 mls @ 200 mls/hr 11/21/20 08:00 11/22/20 17:51 Chloride IV 11/28/20 07:59 200 mls/hr Q8H MICHELLE Administration Protocol Nicotine 14 mg 11/21/20 11:00 11/22/20 09:29 Nicotine 14 Mg/24 Hr Patch TD 14 mg QDAY MICHELLE Administration Ondansetron HCl 4 mg 11/20/20 15:00 Ondansetron 4 Mg/2 Ml Inj IV Q8H PRN Nausea And Vomiting Sodium Chloride 10 ml 11/20/20 15:00 11/22/20 09:29 Sodium Chloride 0.9% 10 Ml Flush Syringe IV 10 ml BID MICHELLE Administration Sodium Chloride 10 ml 11/20/20 15:00 Sodium Chloride 0.9% 10 Ml Flush Syringe IV PRN PRN LINE FLUSH Nutrition/Malnutrition Assess - Dietary Evaluation Nutrition/Malnutrition Findings: Nutrition Notes Start: 11/21/20 13:50 Freq: Status: Active Protocol: Document 11/21/20 13:50 AL (Rec: 11/21/20 14:09 AL [id number]) Co-Sign 11/21/20 13:50 LP Nutrition Notes Need for Assessment generated from: surgical manager Initial or Follow up Assessment Current Diagnosis Diabetes,Heart Failure, Respiratory Failure Other Pertinent Diagnosis SIRS, Lymphedema, Nicotene Dependence, GERD Current Diet Cardiac Labs/Tests Reviewed Pertinent Medications Lasix Height 5 ft 10 in Weight 226.796 kg [place] Body Weight (kg) 75.45 BMI 71.7 Weight Status Morbidly Obese Subjective/Other Information RN screen for skin risk. Santos score 19- pt not at skin risk. Diet tolerated at 75%. Pt appetite is "so-so." Pt tolerated 100% of breakfast and about 50% of Lunch. Percent of energy/protein needs met: 63%/69% Burn Absent Trauma Absent Food Allergy No Current % PO Good (75-100%) Minimum of two criteria No physical signs of malnutrition #1 Nutrition Diagnosis Inadequate energy intake Etiology Lymphedema As Evidenced by Signs and Symptoms 63%/69% of estimated energy and protein needs met. Is patient on ventilator? No Is Patient Ambulatory and/or Out of Bed No REE-([facility]-confined to bed) 3893.016 Kcal/Kg value to use for calculation 11 Approximate Energy Requirements Using 2495 kcal/Kg Calculation Used for Recommendations Kcal/kg Additional Notes Protein: 90-150 g (1.2-2.0 g/ kg for Lymphedema IBW- 75.45 kg) Fluid: 1 ml/kcal or per MD Nutrition Intervention Change Diet Order: Continue current diet Goal #1 Meet estimated energy and protein needs as best as possible. Anticipated Discharge Needs: Cardiac Diet/ Consistent CHO. Follow-Up By: 11/24/20 Additional Comments F/U for intakes and need for ONS.
[2020-11-23] MEDS: FUROSEMIDE 40 MG/4 ML INJ IV SCH ×2 (05:51→17:06)
--- NOTE | 2020-11-23 08:54 | Discharge Summary ---
Providers - Providers Date of Admission: 11/21/20 13:43 Date of discharge: 11/23/20 Attending physician: MAYNOR KING Primary care physician: FRAMING MILL OPERATOR Hospitalization Reason for admission: Worsening lymphedema/rash and mild cellulitis abdominal wall Condition: Stable Pertinent studies: Chest chest x-ray no acute findings Hospital course: 30 YO Male with Super Morbid Obesity, Diastolic CHF, Chronic respiratory Failure on 2L Home Oxygen, Obesity Hypoventilation Syndrome, DM, Asthma, Nicotine Dependence, Lymphedema, GERD presents to ED for evaluation. Pt reports "it hurts a little bit down there and my doctor sent me and to have fluid drained". Patient states he has experienced pain to his lower abdomen over the past 3 days with persistently worsening symptoms over the same timeframe. Patient knowledges fever to 103.2 F, abdominal redness, tenderness, swelling. Initial evaluation is consistent with cellulitis abdominal wall. Empiric and Symptoms slightly improved, patient also received Lasix with good diuresis and mild reduction in lymphedema. Patient strongly counseled and advised to quit tobacco use patient verbalized understanding Advised 30 modification exercise as tolerated and weight reduction when medically stable Also advised to see outpatient bariatric surgical team for weight reduction program as needed The patient is comfortable no new complaints vital signs stable, physical examination prior to discharge is unremarkable Patient is hemodynamically and clinically stable for discharge Discharge diagnosis; -- Cellulitis, rash abdominal wall Current Visit: Yes Status: Acute Empiric antibiotics Rocephin, supportive care Symptoms significantly improved May DC on oral antibiotics -- Systemic inflammatory response syndrome Current Visit: Yes Status: Acute CBC, BMP, IV antibiotic therapy, continue medical management. Repeat CBC in a.m. --Morbid obesity ; BMI 71.7 Current Visit: Yes Status: Acute Dietary modification , lifestyle changes, exercise as tolerated Weight reduction when medically stable Patient may benefit by bariatric surgical consultation for Weight reduction treatment medical versus surgical for both Counseled and advised in detail to increase physical activity at discharge, outpatient pulmonary follow-up for sleep study. Outpatient bariatric surgery follow-up. Patient counseled regarding balanced diet, carbohydrate and calorie counting, and meal planning. Behavior change counseling, +15 minutes. -- Lymphedema Current Visit: Yes Status: Chronic Chronic, supportive care, outpatient vascular surgery follow-up. IV Lasix, supportive care --DVT prophylaxis Current Visit: Yes Status: Acute SCD to bilateral lower extremities while in bed, patient is ambulatory. Closely monitor the patient and adjust the management as needed Plan of care reviewed with the patient and his nurse 11/21/2020; increased Lasix to 40 mg IV every 12 Closely monitor input output, supportive care Outpatient pulmonary evaluation for RUSSEL Outpatient bariatric surgical evaluation for weight reduction program 11/22/2020, continue IV Lasix, input output Possible discharge home tomorrow if stable Patient is stable at discharge Disposition: DC-01 TO HOME OR SELFCARE Final Discharge Diagnosis (Prints w/discharge instructions): Fluid overload. Worsening lymphedema. SIRS. Mild rash /cellulitis abdominal wall. Morbid obesity BMI 71.7 Time spent for discharge: 35 min Core Measure Documentation - Palliative Care Palliative Care/ Comfort Measures: Not Applicable - Core Measures Any of the following diagnoses?: none Exam - Constitutional Vitals: Temp Pulse Resp BP Pulse Ox 98.4 F 66 18 113/53 94 11/23/20 04:31 11/23/20 05:50 11/23/20 05:50 11/23/20 05:46 11/23/20 05:50 General appearance: Present: no acute distress, well-nourished, obese (Morbidly obese) - EENT Eyes: Present: PERRL, EOM intact - Neck Neck: Present: supple, normal ROM - Respiratory Respiratory effort: normal Respiratory: bilateral: diminished, negative: rales, rhonchi, wheezing - Cardiovascular Rhythm: regular Heart Sounds: Present: S1 & S2 - Extremities Extremities: no ischemia, abnormal (Massive lymphedema) Extremity abnormal: edema - Abdominal General gastrointestinal: Present: soft, non-tender, non-distended, normal bowel sounds - Integumentary Integumentary: Present: clear, warm - Musculoskeletal Musculoskeletal: strength equal bilaterally, generalized weakness - Psychiatric Psychiatric: appropriate mood/affect, cooperative - Neurologic Neurologic: moves all extremities Plan Activity: advance as tolerated Diet: low salt, other (Cardiac diet) Special Instructions: smoking cessation Additional Instructions: Strongly advised to comply with medications diet and follow-up visits. If you have worsening symptoms contact MD or go to emergency room,. Dietary modification, exercise as tolerated and weight reduction when medically stable. Advised to see outpatient bariatric surgeon for evaluation for weight reduction program building manager for sleep studies to evaluate for obstructive sleep apnea. Smoking cessation counseling done spent 15 minutes, advised nicotine patch as needed if you have worsening symptoms contact MD Follow up with: PRIMARY CARE, [Primary Care Provider] - 7 Days
[2020-11-23] MEDS: NICOTINE 14 MG/24 HR PATCH TD SCH (10:43)
[2020-11-23] MEDS: buPROPion SR 150 MG TAB PO SCH (10:43)
[2020-11-23] MEDS: CLOBETASOL 0.05% CREAM 15 GM TP SCH (10:43)
[2020-11-23 12:45] VITALS: BP 97/46
== END 2020-11-23 17:09 | disposition home or self-care (01) | DRG 603 ==
LOC: ED 11:53 → 3A 14:18 → OBSVTOIN 11-21 13:43
PROVIDERS: ADMIT Internal Medicine; ATTEND Internal Medicine
DX: L03.311 Cellulitis of abdominal wall (principal); I89.0 Lymphedema, not elsewhere classified; E66.2 Morbid (severe) obesity with alveolar hypoventilation; F17.200 Nicotine dependence, unspecified, uncomplicated; I50.30 Unspecified diastolic (congestive) heart failure; R65.10 Systemic inflammatory response syndrome (SIRS) of non-infectious origin without acute organ dysfunction; Z88.1 Allergy status to other antibiotic agents; Z68.45 Body mass index [BMI] 70 or greater, adult; Z71.3 Dietary counseling and surveillance; Z88.8 Allergy status to other drugs, medicaments and biological substances; Z91.040 Latex allergy status; Z82.49 Family history of ischemic heart disease and other diseases of the circulatory system
CPT/HCPCS: 36415; 71046; 80048; 80053; 81001; 82140; 83735; 83880; 84100; 84484; 85007; 85025; 85610; 85730; 87040; 93005; 96365; 96375; G0378; J0690; J1885; J1940

== ENCOUNTER 2021-09-14 09:33 | Emergency (ER) | payer MEDICAID ==
[2021-09-14] MEDS ORDERED: FUROSEMIDE 40 MG/4 ML INJ IV ONE (09:46)
--- NOTE | 2021-09-14 09:50 | Emergency Department Report ---
ED Shortness of Breath HPI - General Chief Complaint: Dyspnea/Respdistress Stated Complaint: DIFFICULTY BREATHING Time Seen by Provider: 09/14/21 09:45 Source: EMS Mode of arrival: Stretcher Limitations: No Limitations - History of Present Illness Initial Comments: Patient presents by ambulance secondary to shortness of breath. He has been having trouble breathing for the last 3 days. He does report his feet and ankles are more swollen than usual. He continues to eat salt despite a history of congestive heart failure. Patient states that he does not have lung problems. He has been told that he had heart failure which caused the fluid buildup. That is what caused his shortness of breath. Patient has no chest pain. He has had no fevers. He does report coughing up a clear phlegm. He is unable to lie flat. There is no history of recent travel or trauma. He has had no vomiting or diarrhea. He has no dysuria. He is still urinating. He takes 80 mg of Lasix a day. He did not take it this morning. - Related Data Home Medications Medication Instructions Recorded Confirmed Last Taken buPROPion SR [Wellbutrin SR] 150 mg PO BID 11/04/17 11/21/20 11/20/20 Previous Rx's Medication Instructions Recorded Last Taken Type Clobetasol 0.05% [Temovate] 1 applic TP BID #1 tube 10/23/18 Unknown Rx Doxycycline Hyclate [Doxycycline 100 mg PO Q12HR 7 Days #14 tab 01/12/19 Unknown Rx Hyclate TAB] Furosemide [Lasix TAB] 40 mg PO QDAY #60 tablet 01/31/20 11/20/20 Rx Ipratropium/Albuterol Sulfate 1 ampul IH Q6HR #50 ampul.neb 01/31/20 11/21/20 Rx [DUONEB *Not for PRN Use*] Nicotine [Habitrol] 14 mg TD QDAY #20 patch 01/31/20 Unknown Rx Pantoprazole [Protonix TAB] 20 mg PO QDAY #30 tablet. 01/31/20 11/20/20 Rx levoFLOXacin [Levaquin TAB] 750 mg PO QDAY #7 tablet 01/31/20 Unknown Rx Allergies Allergy/AdvReac Type Severity Reaction Status Date / Time clindamycin Allergy Unknown Verified 09/14/21 11:01 doxycycline Allergy Unknown Verified 09/14/21 11:02 latex Allergy Unknown Verified 09/14/21 11:01 metformin Allergy Unknown Verified 09/14/21 11:01 sulfamethoxazole Allergy Swelling Verified 09/14/21 11:02 [From Bactrim] trimethoprim [From Bactrim] Allergy Swelling Verified 09/14/21 11:02 vancomycin Allergy Hives Verified 09/14/21 11:01 ED Review of Systems ROS: Stated complaint: DIFFICULTY BREATHING Other details as noted in HPI Comment: All other systems reviewed and negative Constitutional: denies: fever Eyes: denies: vision change ENT: denies: throat pain Respiratory: see HPI Cardiovascular: as per HPI Endocrine: unexplained weight gain Gastrointestinal: denies: abdominal pain Genitourinary: denies: dysuria Musculoskeletal: denies: back pain Skin: denies: rash Neurological: denies: headache Hematological/Lymphatic: denies: easy bruising ED Past Medical Hx - Past Medical History Hx Hypertension: Yes Hx Congestive Heart Failure: Yes Hx Diabetes: Yes (possible borderline DM) Hx Deep Vein Thrombosis: No Hx Psychiatric Treatment: Yes (Depression) Hx Asthma: Yes Additional medical history: morbidly obese, HOME OXYGEN @ 2LPM NASAL CANULLA, lymphedema - Surgical History Hx Pacemaker: No Hx Internal Defibrillator: No - Family History Family history: hypertension - Social History Smoking Status: Former Smoker - Medications Home Medications: Home Medications Medication Instructions Recorded Confirmed Last Taken Type buPROPion SR [Wellbutrin SR] 150 mg PO BID 11/04/17 11/21/20 11/20/20 History Clobetasol 0.05% [Temovate] 1 applic TP BID #1 tube 10/23/18 11/21/20 Unknown Rx Doxycycline Hyclate [Doxycycline 100 mg PO Q12HR 7 Days #14 tab 01/12/19 11/21/20 Unknown Rx Hyclate TAB] Furosemide [Lasix TAB] 40 mg PO QDAY #60 tablet 01/31/20 11/21/20 11/20/20 Rx Ipratropium/Albuterol Sulfate 1 ampul IH Q6HR #50 ampul.neb 01/31/20 11/21/20 11/21/20 Rx [DUONEB *Not for PRN Use*] Nicotine [Habitrol] 14 mg TD QDAY #20 patch 01/31/20 11/21/20 Unknown Rx Pantoprazole [Protonix TAB] 20 mg PO QDAY #30 tablet. 01/31/20 11/21/20 11/20/20 Rx levoFLOXacin [Levaquin TAB] 750 mg PO QDAY #7 tablet 01/31/20 11/21/20 Unknown Rx ED Physical Exam - General Limitations: No Limitations, Other (Pulse ox noted and hypoxic. He is on 3 L and improved) General appearance: alert, in distress, obese (Morbid) - Head Head exam: Present: atraumatic, normocephalic - Eye Eye exam: Present: normal appearance, PERRL, EOMI. Absent: scleral icterus - ENT ENT exam: Present: normal orophraynx, normal external ear exam - Neck Neck exam: Present: normal inspection. Absent: meningismus - Respiratory Respiratory exam: Present: respiratory distress (Mild), wheezes (Bilateral), rales (Bibasilar) - Cardiovascular Cardiovascular Exam: Present: regular rate, normal rhythm - GI/Abdominal GI/Abdominal exam: Present: soft. Absent: tenderness - Extremities Exam Extremities exam: Present: pedal edema (4+ bilateral) - Back Exam Back exam: Absent: CVA tenderness (R), CVA tenderness (L) - Neurological Exam Neurological exam: Present: alert, oriented X3, CN II-XII intact. Absent: motor sensory deficit - Psychiatric Psychiatric exam: Present: normal affect, normal mood - Skin Skin exam: Present: warm, dry ED Course Vital Signs 09/14/21 09/14/21 09/14/21 09:38 10:08 10:16 Temperature 97.8 F Pulse Rate 98 H 85 87 Respiratory 15 15 20 Rate Blood Pressure 121/65 Blood Pressure 136/84 [Right] O2 Sat by Pulse 98 92 85 Oximetry 09/14/21 09/14/21 09/14/21 10:25 10:30 10:42 Temperature 97.0 F L Pulse Rate 74 88 88 Respiratory 18 18 Rate Blood Pressure 119/56 Blood Pressure 146/71 [Right] O2 Sat by Pulse 97 91 Oximetry 09/14/21 09/14/21 09/14/21 10:46 11:00 11:16 Temperature Pulse Rate 81 87 81 Respiratory 21 19 16 Rate Blood Pressure 120/54 130/65 125/71 Blood Pressure [Right] O2 Sat by Pulse 92 90 94 Oximetry 09/14/21 09/14/21 09/14/21 11:30 11:48 12:00 Temperature Pulse Rate 70 90 92 H Respiratory 14 19 18 Rate Blood Pressure 116/58 123/62 112/56 Blood Pressure [Right] O2 Sat by Pulse 93 78 L 94 Oximetry 09/14/21 09/14/21 09/14/21 12:01 12:16 12:17 Temperature 98.1 F Pulse Rate 87 76 87 Respiratory 19 18 Rate Blood Pressure 135/74 Blood Pressure [Right] O2 Sat by Pulse 94 93 Oximetry 09/14/21 09/14/21 12:30 12:37 Temperature Pulse Rate 84 Respiratory 13 24 Rate Blood Pressure 106/40 Blood Pressure [Right] O2 Sat by Pulse 92 97 Oximetry - Reevaluation(s) Reevaluation #1: 09/14/21 09:47 IV labs ordered. X-rays ordered. Old records noted. Reevaluation #2: 09/14/21 12:26 Labs have been reviewed. Patient does have leukocytosis of uncertain etiology. There was no radiographic evidence of pneumonia. DuoNeb has been ordered. Troponin is noted to normal. ED Medical Decision Making - Lab Data Result diagrams: 09/14/21 10:32 09/14/21 10:32 Rhythm strip: Normal sinus rhythm without ectopy per monitor observe 10 seconds. - EKG Data -: EKG Interpreted by In - EKG Data 09/14/21 10:23 1008-EKG shows normal sinus rhythm at 83. QRS is normal at 107. QT corrected is normal at 455. There is artifact noted. Patient does seem to have some RVH. There is no ST elevation to suggest STEMI. There is no ST depression sugges tive of ischemia. When compared to prior EKG, there was a T wave inversion in V2. This was from November 2020. This has resolved. Critical Care Time: No Critical care attestation.: If time is entered above; I have spent that time in minutes in the direct care of this critically ill patient, excluding procedure time. ED Disposition Clinical Impression: Shortness of breath, Lymphedema, Acute HFrEF (heart failure with reduced ejection fraction) Disposition: HOME / SELF CARE / HOMELESS Is pt being admited?: No Condition: Stable Instructions: Shortness of Breath, Adult, Dryp-ix-Cvog, Heart Failure, Self Care Additional Instructions: Continue to elevate the feet. Stop eating salt. Return for problems. Follow- up with your regular doctor for recheck. Referrals: PRIMARY CARE, [Referring] - 3-5 Days
--- NOTE | 2021-09-14 10:27 | XRay Report ---
CHEST 1 VIEW INDICATION: pulmonary evaluation. COMPARISON: 11/20/2020 FINDINGS: Support devices: None. Heart: Mild cardiomegaly is present which appears to be new since 11/20/2020. Lungs/Pleura: There is mild central pulmonary venous congestion. No evidence for acute infiltrate, pl eural effusion or pneumothorax. Additional findings: None. IMPRESSION: Mild cardiomegaly and central pulmonary venous congestion but no CHF. These findings appear to be ne w since 11/20/2020. Signer Name: Robbi Ridley Jr, MD Signed: 09/14/2021 10:22 AM Workstation Name: [id number]
[2021-09-14 11:26] LABS: Hematocrit 38.9 % (35.5-45.6); Hemoglobin 12.2 gm/dl (11.8-15.2); Mean Corpuscular HGB Conc 32 % (32-34); Mean Corpuscular Volume 75 fl (84-94); Platelet Count 242 K/mm3 (140-440)
[2021-09-14 11:39] LABS: BUN/Creatinine Ratio 14; Blood Urea Nitrogen 13 mg/dL (9-20); Calcium 9.4 mg/dL (8.4-10.2); Hemolysis Index 8
[2021-09-14 11:54] LABS: Red Cell Distribution Width 22.7 % (13.2-15.2)
[2021-09-14] MEDS ORDERED: IPRATROPIUM 0.02% NEBU 2.5 ML IH ONE (12:27)
[2021-09-14] MEDS ORDERED: ALBUTEROL 2.5 MG/3 ML NEBU IH ONE (12:27)
[2021-09-14 14:58] VITALS: BP 127/51
--- NOTE | 2021-09-15 10:02 | Electrocardiograph Report ---
[facility] Test Date: 2021-09-14 Test Time: 10:08:21 Pat Name: JANES BENNETT Department: Room: Gender: Helper Coordinator: [id number] : 1990 Requested By: DONALD LOWE Order Number: [id number] Reading MD: Jona Harris Measurements Intervals [place] Rate: 83 P: 51 [place]: 169 QRS: 229 QRSD: 107 T: 43 QT: 387 QTc: 455 Interpretive Statements Sinus rhythm cannot exclude right ventricular hypertrophy Compared to ECG 11/20/2020 14:25:49 Incomplete right bundle-branch block no significant change Electronically Signed On 09-15-2021 10:02:33 EST by Jona Harris
== END 2021-09-14 15:30 | disposition home or self-care (01) ==
LOC: ED 09:33
DX: I89.0 Lymphedema, not elsewhere classified (principal); R06.02 Shortness of breath; I50.21 Acute systolic (congestive) heart failure; I11.0 Hypertensive heart disease with heart failure; E11.9 Type 2 diabetes mellitus without complications; F32.9 Major depressive disorder, single episode, unspecified; J45.909 Unspecified asthma, uncomplicated; Z88.1 Allergy status to other antibiotic agents; Z91.040 Latex allergy status; Z88.2 Allergy status to sulfonamides; Z88.8 Allergy status to other drugs, medicaments and biological substances; Z79.899 Other long term (current) drug therapy
CPT/HCPCS: 36415; 71045; 80048; 83735; 83880; 84484; 85027; 93005; 94644; 96374; 99284; J1940

== ENCOUNTER 2022-02-14 08:43 | Inpatient (IN) | payer MEDICAID ==
[2022-02-14] MEDS ORDERED: IPRATROPIUM 0.02% NEBU 2.5 ML IH ONE ×2 (08:56→11:13)
[2022-02-14] MEDS ORDERED: ALBUTEROL 2.5 MG/3 ML NEBU IH ONE ×2 (08:56→11:13)
[2022-02-14] MEDS ORDERED: FUROSEMIDE 40 MG/4 ML INJ IV ONE (08:56)
[2022-02-14] MEDS ORDERED: methylPREDNISolone Sod Succinate 125 MG/2 ML INJ IV ONE (08:56)
--- NOTE | 2022-02-14 09:36 | XRay Report ---
CHEST 1 VIEW 02/14/2022 9:20 AM INDICATION / CLINICAL INFORMATION: Dyspnea. COMPARISON: 09/14/2021 FINDINGS: SUPPORT DEVICES: None. HEART / MEDIASTINUM: Mild cardiomegaly LUNGS / PLEURA: Mild to moderate pulmonary venous congestion. No convincing infiltrate, pleural effus ion or pneumothorax. ADDITIONAL FINDINGS: No significant additional findings. IMPRESSION: 1. Cardiomegaly and pulmonary venous congestion. These findings appear slightly worse when comparing to 09/14/2021 exam. Signer Name: Robbi Ridley Jr, MD Signed: 02/14/2022 9:32 AM Workstation Name: [id number]
[2022-02-14 10:25] LABS: Hematocrit 35.9 % (35.5-45.6); Hemoglobin 11.3 gm/dl (11.8-15.2); Mean Corpuscular HGB Conc 31 % (32-34); Mean Corpuscular Volume 79 fl (84-94); Platelet Count 231 K/mm3 (140-440); Red Blood Count 4.55 M/mm3 (3.65-5.03)
[2022-02-14 10:38] LABS: INR 1.16 (0.87-1.13)
[2022-02-14 10:41] LABS: Red Cell Distribution Width 23.4 % (13.2-15.2)
[2022-02-14 10:42] LABS: Alanine Aminotransferase 8 units/L (7-56); Albumin 3.5 g/dL (3.9-5); BUN/Creatinine Ratio 11; Blood Urea Nitrogen 10 mg/dL (9-20); Calcium 9.4 mg/dL (8.4-10.2); Hemolysis Index 3
[2022-02-14 11:21] LABS: C-Reactive Protein 3.9 mg/dL (0.00-1.30)
[2022-02-14 14:54] LABS: Band Neutrophils # (Manual) 8.8 K/mm3; Basophils % (Manual) 0 % (0.0-1.8); Myelocytes # (Manual) 0.7 K/mm3; Total Cells Counted 100
--- NOTE | 2022-02-14 14:55 | Emergency Department Report ---
ED General Adult HPI - General Chief complaint: Dyspnea/Respdistress Stated complaint: GENEVIEVE PUI?: No Time Seen by Provider: 02/14/22 08:54 Source: patient, EMS Mode of arrival: Stretcher Limitations: Physical Limitation - History of Present Illness Initial comments: PT REPORTS SOB AT HOME, WEARS O2 @ HOME 2 LITERS history of copd and chf morbidly obese , onhome o2 -: Gradual, days(s) Severity scale (0 -10): 0 Worsens with: movement Associated Symptoms: chest pain, cough, shortness of breath Treatments Prior to Arrival: none - Related Data Home Medications Medication Instructions Recorded Confirmed Last Taken buPROPion SR [Wellbutrin SR] 150 mg PO BID 11/04/17 11/21/20 11/20/20 Previous Rx's Medication Instructions Recorded Last Taken Type Clobetasol 0.05% [Temovate] 1 applic TP BID #1 tube 10/23/18 Unknown Rx Doxycycline Hyclate [Doxycycline 100 mg PO Q12HR 7 Days #14 tab 01/12/19 Unknown Rx Hyclate TAB] Furosemide [Lasix TAB] 40 mg PO QDAY #60 tablet 01/31/20 11/20/20 Rx Ipratropium/Albuterol Sulfate 1 ampul IH Q6HR #50 ampul.neb 01/31/20 11/21/20 Rx [DUONEB *Not for PRN Use*] Nicotine [Habitrol] 14 mg TD QDAY #20 patch 01/31/20 Unknown Rx Pantoprazole [Protonix TAB] 20 mg PO QDAY #30 tablet. 01/31/20 11/20/20 Rx levoFLOXacin [Levaquin TAB] 750 mg PO QDAY #7 tablet 01/31/20 Unknown Rx Allergies Allergy/AdvReac Type Severity Reaction Status Date / Time clindamycin Allergy Unknown Verified 02/14/22 08:48 doxycycline Allergy Unknown Verified 02/14/22 08:48 latex Allergy Unknown Verified 02/14/22 08:48 metformin Allergy Unknown Verified 02/14/22 08:48 sulfamethoxazole Allergy Swelling Verified 02/14/22 08:48 [From Bactrim] trimethoprim [From Bactrim] Allergy Swelling Verified 02/14/22 08:48 vancomycin Allergy Hives Verified 02/14/22 08:48 ED Review of Systems ROS: Stated complaint: GENEVIEVE Other details as noted in HPI Constitutional: denies: chills, fever Eyes: denies: eye pain, eye discharge, vision change ENT: denies: ear pain, throat pain Respiratory: denies: cough, shortness of breath, wheezing Cardiovascular: denies: chest pain, palpitations Endocrine: no symptoms reported Gastrointestinal: denies: abdominal pain, nausea, diarrhea Genitourinary: denies: urgency, dysuria Musculoskeletal: denies: back pain, joint swelling, arthralgia Skin: denies: rash, lesions Neurological: denies: headache, weakness, paresthesias Psychiatric: denies: anxiety, depression Hematological/Lymphatic: denies: easy bleeding, easy bruising ED Past Medical Hx - Past Medical History Previous Medical History?: Yes Hx Hypertension: Yes Hx Congestive Heart Failure: Yes Hx Diabetes: Yes (possible borderline DM) Hx Deep Vein Thrombosis: No Hx Psychiatric Treatment: Yes (Depression) Hx Asthma: Yes Additional medical history: morbidly obese, HOME OXYGEN @ 2LPM NASAL CANULLA, lymphedema - Surgical History Hx Pacemaker: No Hx Internal Defibrillator: No Hx Appendectomy: No - Social History Smoking Status: Former Smoker - Medications Home Medications: Home Medications Medication Instructions Recorded Confirmed Last Taken Type buPROPion SR [Wellbutrin SR] 150 mg PO BID 11/04/17 11/21/20 11/20/20 History Clobetasol 0.05% [Temovate] 1 applic TP BID #1 tube 10/23/18 11/21/20 Unknown Rx Doxycycline Hyclate [Doxycycline 100 mg PO Q12HR 7 Days #14 tab 01/12/19 11/21/20 Unknown Rx Hyclate TAB] Furosemide [Lasix TAB] 40 mg PO QDAY #60 tablet 01/31/20 11/21/20 11/20/20 Rx Ipratropium/Albuterol Sulfate 1 ampul IH Q6HR #50 ampul.neb 01/31/20 11/21/20 11/21/20 Rx [DUONEB *Not for PRN Use*] Nicotine [Habitrol] 14 mg TD QDAY #20 patch 01/31/20 11/21/20 Unknown Rx Pantoprazole [Protonix TAB] 20 mg PO QDAY #30 tablet. 01/31/20 11/21/20 11/20/20 Rx levoFLOXacin [Levaquin TAB] 750 mg PO QDAY #7 tablet 01/31/20 11/21/20 Unknown Rx ED Physical Exam - General Limitations: Physical Limitation General appearance: alert, obese - Head Head exam: Present: atraumatic, normocephalic - Eye Eye exam: Present: normal appearance - ENT ENT exam: Present: mucous membranes moist - Neck Neck exam: Present: normal inspection - Respiratory Respiratory exam: Present: rales. Absent: respiratory distress - Cardiovascular Cardiovascular Exam: Present: normal rhythm, tachycardia. Absent: systolic murmur, diastolic murmur, rubs, gallop - GI/Abdominal GI/Abdominal exam: Present: soft, normal bowel sounds - Rectal Rectal exam: Present: deferred - Extremities Exam Extremities exam: Present: pedal edema, other (lymphedema) - Back Exam Back exam: Present: normal inspection - Neurological Exam Neurological exam: Present: alert, oriented X3 - Psychiatric Psychiatric exam: Present: normal affect, normal mood - Skin Skin exam: Present: warm, dry, intact, normal color. Absent: rash ED Course Vital Signs 02/14/22 02/14/22 08:44 12:00 Temperature 98.1 F Pulse Rate 100 H Pulse Rate [ 106 H Anterior Bilateral Throughout] Respiratory 18 Rate Respiratory 20 Rate [Anterior Bilateral Throughout] Blood Pressure 118/65 [Left] O2 Sat by Pulse 92 Oximetry ED Medical Decision Making - Lab Data Result diagrams: 02/14/22 09:26 02/14/22 09:26 - Radiology Data Radiology results: report reviewed, image reviewed - Medical Decision Making work up showed chf , lasix given , on o2 , leukocytosis noted , seen before in his last vsit no evidence of ifection Critical care attestation.: If time is entered above; I have spent that time in minutes in the direct care of this critically ill patient, excluding procedure time. ED Disposition Clinical Impression: Dyspnea, CHF (congestive heart failure), Lymphedema, Leukocytosis Disposition: ADMITTED INPATIENT Is pt being admited?: No Does the pt Need Aspirin: No Condition: Stable Referrals: PRIMARY CARE, [Primary Care Provider] - 3-5 Days
[2022-02-14 14:58] LABS: Anisocytosis 1+; Platelet Estimate Consistent w Auto
[2022-02-14] MEDS ORDERED: METOCLOPRAMIDE 10 MG/2 ML INJ IV PRN (20:28)
[2022-02-14] MEDS ORDERED: oxyCODONE /ACETAMINOPHEN 5-325MG TAB PO PRN (20:28)
[2022-02-14] MEDS ORDERED: ONDANSETRON 4 MG/2 ML INJ IV PRN (20:28)
[2022-02-14] MEDS ORDERED: MORPHINE 2 MG/1 ML INJ IV PRN (20:28)
[2022-02-14] MEDS ORDERED: ACETAMINOPHEN 325 MG TAB PO PRN (20:28)
--- NOTE | 2022-02-14 20:40 | History and Physical Report ---
History of Present Illness Date of examination: 02/14/22 Date of admission: 02/14/2022 Chief complaint: Shortness of breath and redness of both lower EXTR History of present illness: 31-year-old morbidly obese male comes in for shortness of breath and redness of both lower extremities. No fever or chills. Patient is on 2 L home oxygen. Patient barely moves from bed to the restroom and back. Mostly bedridden. Severely obese. Patient is admitted by me in the past for CHF. Patient also has obstructive sleep apnea. - Past Medical History Previous Medical History?: Yes Hx Hypertension: Yes Hx Congestive Heart Failure: Yes Hx Diabetes: Yes (possible borderline DM) Hx Deep Vein Thrombosis: No Hx Psychiatric Treatment: Yes (Depression) Hx Asthma: Yes Additional medical history: morbidly obese, HOME OXYGEN @ 2LPM NASAL CANULLA, lymphedema - Surgical History Hx Pacemaker: No Hx Internal Defibrillator: No Hx Appendectomy: No - Social History Smoking Status: Former Smoker - Medications Home Medications: Home Medications Medication Instructions Recorded Confirmed Last Taken Type buPROPion SR [Wellbutrin SR] 150 mg PO BID 11/04/17 11/21/20 11/20/20 History Clobetasol 0.05% [Temovate] 1 applic TP BID #1 tube 10/23/18 11/21/20 Unknown Rx Doxycycline Hyclate [Doxycycline 100 mg PO Q12HR 7 Days #14 tab 01/12/19 11/21/20 Unknown Rx Hyclate TAB] Furosemide [Lasix TAB] 40 mg PO QDAY #60 tablet 01/31/20 11/21/20 11/20/20 Rx Ipratropium/Albuterol Sulfate 1 ampul IH Q6HR #50 ampul.neb 01/31/20 11/21/20 11/21/20 Rx [DUONEB *Not for PRN Use*] Nicotine [Habitrol] 14 mg TD QDAY #20 patch 01/31/20 11/21/20 Unknown Rx Pantoprazole [Protonix TAB] 20 mg PO QDAY #30 tablet. 01/31/20 11/21/20 11/20/20 Rx levoFLOXacin [Levaquin TAB] 750 mg PO QDAY #7 tablet 01/31/20 11/21/20 Unknown Rx Review of Systems ROS: Stated complaint: GENEVIEVE Other details as noted in HPI Constitutional: denies: chills, fever Eyes: denies: eye pain, eye discharge, vision change ENT: denies: ear pain, throat pain Respiratory: denies: cough, shortness of breath, wheezing Cardiovascular: denies: chest pain, palpitations Endocrine: no symptoms reported Gastrointestinal: denies: abdominal pain, nausea, diarrhea Genitourinary: denies: urgency, dysuria Musculoskeletal: denies: back pain, joint swelling, arthralgia Skin: denies: rash, lesions Neurological: denies: headache, weakness, paresthesias Psychiatric: denies: anxiety, depression Hematological/Lymphatic: denies: easy bleeding, easy bruising Medications and Allergies Allergies Allergy/AdvReac Type Severity Reaction Status Date / Time clindamycin Allergy Unknown Verified 02/14/22 08:48 doxycycline Allergy Unknown Verified 02/14/22 08:48 latex Allergy Unknown Verified 02/14/22 08:48 metformin Allergy Unknown Verified 02/14/22 08:48 sulfamethoxazole Allergy Swelling Verified 02/14/22 08:48 [From Bactrim] trimethoprim [From Bactrim] Allergy Swelling Verified 02/14/22 08:48 vancomycin Allergy Hives Verified 02/14/22 08:48 Home Medications Medication Instructions Recorded Confirmed Last Taken Type buPROPion SR [Wellbutrin SR] 150 mg PO BID 11/04/17 11/21/20 11/20/20 History Clobetasol 0.05% [Temovate] 1 applic TP BID #1 tube 10/23/18 11/21/20 Unknown Rx Doxycycline Hyclate [Doxycycline 100 mg PO Q12HR 7 Days #14 tab 01/12/19 11/21/20 Unknown Rx Hyclate TAB] Furosemide [Lasix TAB] 40 mg PO QDAY #60 tablet 01/31/20 11/21/20 11/20/20 Rx Ipratropium/Albuterol Sulfate 1 ampul IH Q6HR #50 ampul.neb 01/31/20 11/21/20 11/21/20 Rx [DUONEB *Not for PRN Use*] Nicotine [Habitrol] 14 mg TD QDAY #20 patch 01/31/20 11/21/20 Unknown Rx Pantoprazole [Protonix TAB] 20 mg PO QDAY #30 tablet. 01/31/20 11/21/20 11/20/20 Rx levoFLOXacin [Levaquin TAB] 750 mg PO QDAY #7 tablet 01/31/20 11/21/20 Unknown Rx Exam - Physical Exam Narrative exam: Morbidly obese individual lying in bed looking at his 3 phones - Constitutional Vitals: Temp Pulse Resp BP Pulse Ox 98.1 F 106 H 20 118/65 92 02/14/22 08:44 02/14/22 12:00 02/14/22 12:00 02/14/22 08:44 02/14/22 08:44 General appearance: Present: mild distress, well-nourished - EENT Eyes: Present: PERRL ENT: hearing intact, clear oral mucosa - Neck Neck: Present: supple, normal ROM - Respiratory Respiratory effort: normal Respiratory: bilateral: diminished - Cardiovascular Heart rate: 88 Rhythm: regular Heart Sounds: Present: S1 & S2. Absent: rub, click - Extremities Extremities: pulses symmetrical, No edema, abnormal (Cellulitis both lower EXTR) Peripheral Pulses: within normal limits - Abdominal General gastrointestinal: Present: soft, non-tender, non-distended, normal bowel sounds Male genitourinary: Present: normal - Integumentary Integumentary: Present: clear, warm, dry - Musculoskeletal Musculoskeletal: gait normal, strength equal bilaterally - Psychiatric Psychiatric: appropriate mood/affect, intact judgment & insight - Neurologic Neurologic: CNII-XII intact, moves all extremities HEART Score - HEART Score Troponin: Troponin T < 0.010 ng/mL (0.00-0.029) 02/14/22 09:26 Results - Labs CBC & Chem 7: 02/15/22 05:07 02/15/22 05:07 Labs: Laboratory Last Values WBC 32.5 K/mm3 (4.5-11.0) H 02/14/22 09:26 RBC 4.55 M/mm3 (3.65-5.03) 02/14/22 09:26 Hgb 11.3 gm/dl (11.8-15.2) L 02/14/22 09:26 Hct 35.9 % (35.5-45.6) 02/14/22 09:26 MCV 79 fl (84-94) L 02/14/22 09:26 MCH 25 pg (28-32) L 02/14/22 09:26 MCHC 31 % (32-34) L 02/14/22 09:26 RDW 23.4 % (13.2-15.2) H 02/14/22 09:26 Plt Count 231 K/mm3 (140-440) 02/14/22 09:26 Add Manual Diff Complete 02/14/22 09:26 Total Counted 100 02/14/22 09:26 Seg Neuts % (Manual) 54.0 % (40.0-70.0) 02/14/22 09:26 Band Neutrophils % 27.0 % 02/14/22 09:26 Lymphocytes % (Manual) 6.0 % (13.4-35.0) L 02/14/22 09:26 Reactive Lymphs % (Man) 0 % 02/14/22 09:26 Monocytes % (Manual) 2.0 % (0.0-7.3) 02/14/22 09:26 Eosinophils % (Manual) 6.0 % (0.0-4.3) H 02/14/22 09:26 Basophils % (Manual) 0 % (0.0-1.8) 02/14/22 09:26 Metamyelocytes % 3.0 % 02/14/22 09:26 Myelocytes % 2.0 % 02/14/22 09:26 Promyelocytes % 0 % 02/14/22 09:26 Blast Cells % 0 % 02/14/22 09:26 Nucleated RBC % 4.0 % (0.0-0.9) H 02/14/22 09:26 Seg Neutrophils # Man 17.6 K/mm3 (1.8-7.7) H 02/14/22 09:26 Band Neutrophils # 8.8 K/mm3 02/14/22 09:26 Lymphocytes # (Manual) 2.0 K/mm3 (1.2-5.4) 02/14/22 09:26 Abs React Lymphs (Man) 0.0 K/mm3 02/14/22 09:26 Monocytes # (Manual) 0.7 K/mm3 (0.0-0.8) 02/14/22 09:26 Eosinophils # (Manual) 2.0 K/mm3 (0.0-0.4) H 02/14/22 09:26 Basophils # (Manual) 0.0 K/mm3 (0.0-0.1) 02/14/22 09:26 Metamyelocytes # 1.0 K/mm3 02/14/22 09:26 Myelocytes # 0.7 K/mm3 02/14/22 09:26 Promyelocytes # 0.0 K/mm3 02/14/22 09:26 Blast Cells # 0.0 K/mm3 02/14/22 09:26 WBC Morphology Not Reportable 02/14/22 09:26 Hypersegmented Neuts Not Reportable 02/14/22 09:26 Hyposegmented Neuts Not Reportable 02/14/22 09:26 Hypogranular Neuts Not Reportable 02/14/22 09:26 Smudge Cells Not Reportable 02/14/22 09:26 Toxic Granulation Not Reportable 02/14/22 09:26 Toxic Vacuolation Not Reportable 02/14/22 09:26 Dohle Bodies Not Reportable 02/14/22 09:26 Pelger-Huet Anomaly Not Reportable 02/14/22 09:26 Noa Rods Not Reportable 02/14/22 09:26 Platelet Estimate Consistent w auto 02/14/22 09:26 Clumped Platelets Not Reportable 02/14/22 09:26 Plt Clumps, EDTA Not Reportable 02/14/22 09:26 Large Platelets Not Reportable 02/14/22 09:26 Giant Platelets Not Reportable 02/14/22 09:26 Platelet Satelliting Not Reportable 02/14/22 09:26 Plt Morphology Comment Not Reportable 02/14/22 09:26 RBC Morphology Not Reportable 02/14/22 09:26 Dimorphic RBCs Not Reportable 02/14/22 09:26 Polychromasia Not Reportable 02/14/22 09:26 Hypochromasia Not Reportable 02/14/22 09:26 Poikilocytosis Not Reportable 02/14/22 09:26 Anisocytosis 1+ 02/14/22 09:26 Microcytosis Not Reportable 02/14/22 09:26 Macrocytosis Not Reportable 02/14/22 09:26 Spherocytes Not Reportable 02/14/22 09:26 Pappenheimer Bodies Not Reportable 02/14/22 09:26 Sickle Cells Not Reportable 02/14/22 09:26 Target Cells Not Reportable 02/14/22 09:26 Tear Drop Cells Not Reportable 02/14/22 09:26 Ovalocytes Not Reportable 02/14/22 09:26 Helmet Cells Not Reportable 02/14/22 09:26 [place] Bodies Not Reportable 02/14/22 09:26 [place] Rings Not Reportable 02/14/22 09:26 [place] Cells Not Reportable 02/14/22 09:26 Bite Cells Not Reportable 02/14/22 09:26 Crenated Cell Not Reportable 02/14/22 09:26 Elliptocytes Not Reportable 02/14/22 09:26 Acanthocytes (Spur) Not Reportable 02/14/22 09:26 Rouleaux Not Reportable 02/14/22 09:26 Hemoglobin C Crystals Not Reportable 02/14/22 09:26 Schistocytes Not Reportable 02/14/22 09:26 Malaria parasites Not Reportable 02/14/22 09:26 Cuco Bodies Not Reportable 02/14/22 09:26 Hem Pathologist Commnt No 02/14/22 09:26 PT 16.1 Sec. (12.2-14.9) H 02/14/22 09:26 INR 1.16 (0.87-1.13) H 02/14/22 09:26 Sodium 143 mmol/L (137-145) 02/14/22 09:26 Potassium 4.5 mmol/L (3.6-5.0) 02/14/22 09:26 Chloride 99.7 mmol/L (98-107) 02/14/22 09:26 Carbon Dioxide 34 mmol/L (22-30) H 02/14/22 09:26 Anion Gap 14 mmol/L 02/14/22 09:26 BUN 10 mg/dL (9-20) 02/14/22 09:26 Creatinine 0.9 mg/dL (0.8-1.3) 02/14/22 09:26 Estimated GFR > 60 ml/min 02/14/22 09:26 BUN/Creatinine Ratio 11 % 02/14/22 09:26 Glucose 108 mg/dL (75-100) H 02/14/22 09:26 Lactic Acid 1.70 mmol/L (0.7-2.0) 02/14/22 09:26 Calcium 9.4 mg/dL (8.4-10.2) 02/14/22 09:26 Magnesium 2.30 mg/dL (1.7-2.3) 02/14/22 09:26 Total Bilirubin 0.80 mg/dL (0.1-1.2) 02/14/22 09:26 AST 12 units/L (5-40) 02/14/22 09:26 ALT 8 units/L (7-56) 02/14/22 09:26 Alkaline Phosphatase 87 units/L (35-129) 02/14/22 09:26 Total Creatine Kinase 45 units/L (55-170) L 02/14/22 09:26 CK-MB (CK-2) 4.0 ng/mL (0.0-4.0) 02/14/22 09:26 CK-MB (CK-2) Rel Index 8.8 (0-4) H 02/14/22 09:26 Troponin T < 0.010 ng/mL (0.00-0.029) 02/14/22 09:26 C-Reactive Protein 3.90 mg/dL (0.00-1.30) H 02/14/22 09:26 NT-Pro-B Natriuret Pep 1314 pg/mL (0-450) H 02/14/22 09:26 Total Protein 5.9 g/dL (6.3-8.2) L 02/14/22 09:26 Albumin 3.5 g/dL (3.9-5) L 02/14/22 09:26 Albumin/Globulin Ratio 1.5 % 02/14/22 09:26 Lipase 8 units/L (13-60) L 02/14/22 09:26 - Imaging and Cardiology Imaging and Cardiology: Chest x-ray Cardiomegaly and pulmonary venous congestion Assessment and Plan Advance Directives: Yes (Full code) VTE prophylaxis?: Chemical Plan of care discussed with patient/family: Yes - Patient Problems (1) Sepsis Current Visit: Yes Status: Acute Plan to address problem: Patient has a high white count of 34,000 Possible source of infection lower extremity infection of soft tissues (2) Cellulitis of both lower extremities Current Visit: Yes Status: Acute Plan to address problem: Patient initiated on Unasyn and vancomycin (3) Acute exacerbation of CHF (congestive heart failure) Current Visit: Yes Status: Acute Qualifiers: Heart failure type: combined systolic and diastolic Qualified Code(s): I50 .43 - Acute on chronic combined systolic (congestive) and diastolic (congestive) heart failure Plan to address problem: IV Lasix and Aldactone Echocardiogram for ejection fraction, wall motion and valvular abnormalities (4) Hypertension Current Visit: Yes Status: Chronic Qualifiers: Hypertension type: primary hypertension Qualified Code(s): I10 - Essential (primary) hypertension Plan to address problem: Secondary to obesity Continue antihypertensives (5) T2DM (type 2 diabetes mellitus) Current Visit: Yes Status: Chronic Qualifiers: Diabetes mellitus chcf insulin use: unspecified chcf insulin use status Plan to address problem: Coverage for now (6) Morbid obesity with BMI of 60.0-69.9, adult Current Visit: Yes Status: Chronic Plan to address problem: Patient definitely needs bariatric surgery Primary team to senior genetic counselor him and refer to Dr. Ramirez----bariatric surgeon who is in-house (7) DVT prophylaxis Current Visit: Yes Status: Acute Plan to address problem: On heparin and GI prophylaxis (8) Advance care planning Current Visit: Yes Status: Acute Plan to address problem: Disease education conducted, care plan discussed, diagnosis discussed, and prognosis discussed. Patient acknowledged understanding with care plan. +30 minutes.
[2022-02-14] MEDS ORDERED: SPIRONOLACTONE 25 MG TAB PO SCH (21:00)
[2022-02-14 21:12] LABS: Bilirubin,Urine Negative (Negative); Color,Urine Yellow (Yellow)
[2022-02-14 21:13] LABS: Blood,Urine Negative (Negative); Protein,Urine <15 mg/dL mg/dL (Negative); Urobilinogen,Urine 0.2 mg/dL (<2.0)
[2022-02-14 21:14] LABS: Mucus,Urine FEW /HPF; WBC,Urine < 1.0 /HPF (0.0-6.0)
[2022-02-14 21:23] LABS: Amphetamine Screen,Urine Negative; Benzodiazepines Screen,Urine Negative; Cannabinoid Screen,Urine Negative; Cocaine Screen,Urine Negative; Methadone Screen,Urine Negative; Opiate Screen,Urine Negative
[2022-02-14 21:34] LABS: RBC,Urine < 1.0 /HPF (0.0-6.0)
[2022-02-14] MEDS: PANTOPRAZOLE 20 MG TAB PO SCH (21:57)
[2022-02-14] MEDS: FAMOTIDINE 20 MG TAB PO SCH (21:58)
[2022-02-14] MEDS ORDERED: VANCOMYCIN PHARMACY TO DOSE IV SCH (22:00)
[2022-02-14] MEDS ORDERED: HEPARIN 5,000 UNIT/1 ML VIAL SUB-Q SCH (22:00)
[2022-02-14] MEDS: CLOBETASOL 0.05% CREAM 15 GM TP SCH (23:19)
[2022-02-14] MEDS: SPIRONOLACTONE 50 MG TAB PO SCH (23:19)
[2022-02-14] MEDS: buPROPion SR 150 MG TAB PO SCH (23:20)
[2022-02-15] MEDS ORDERED: AMPICILLIN/SULBACTA 3GM/100ML 3 GM/100 ML BAG IV SCH
[2022-02-15 05:47] LABS: Mean Corpuscular HGB Conc 29 % (32-34); Mean Corpuscular Volume 81 fl (84-94); Platelet Count 223 K/mm3 (140-440)
[2022-02-15 05:48] LABS: Hematocrit 36.4 % (35.5-45.6); Hemoglobin 10.6 gm/dl (11.8-15.2)
[2022-02-15 06:10] LABS: Alanine Aminotransferase 7 units/L (7-56); Albumin 3.4 g/dL (3.9-5); BUN/Creatinine Ratio 15; Blood Urea Nitrogen 12 mg/dL (9-20); Calcium 9.1 mg/dL (8.4-10.2); Hemolysis Index 3
[2022-02-15] MEDS: FUROSEMIDE 40 MG/4 ML INJ IV SCH ×2 (06:13→17:55)
[2022-02-15 06:38] LABS: Anisocytosis 2+; Band Neutrophils # (Manual) 0.9 K/mm3; Eosinophils % (Manual) 0 % (0.0-4.3); Monocytes % (Manual) 0 % (0.0-7.3); Total Cells Counted 100
[2022-02-15 06:39] LABS: Hypochromasia 1+; Platelet Estimate Consistent w Auto
[2022-02-15] MEDS: AMPICILLIN/SULBACTA 3GM/100ML 3 GM/100 ML BAG IV SCH ×3 (08:13→20:45)
--- NOTE | 2022-02-15 08:33 | Progress Note ---
Assessment and Plan Assessment and plan: History of present illness: 31-year-old morbidly obese male comes in for shortness of breath and redness of both lower extremities. No fever or chills. Patient is on 2 L home oxygen. Patient barely moves from bed to the restroom and back. Mostly bedridden. Severely obese. Patient is admitted by me in the past for CHF. Patient also has obstructive sleep apnea. Hospital Course: 02/15: US paracentesis pending. Ordered NGT. Continue lactulose and monitor for improvement. CMP ordered for tomorrow. Assessment and Plan: (1) Sepsis Current Visit: Yes Status: Acute Plan to address problem: Patient has a high white count of 34,000 Possible source of infection lower extremity infection of soft tissues (2) Cellulitis of both lower extremities Current Visit: Yes Status: Acute Plan to address problem: Patient initiated on Unasyn and vancomycin (3) Acute exacerbation of CHF (congestive heart failure) Current Visit: Yes Status: Acute Qualifiers: Heart failure type: combined systolic and diastolic Qualified Code(s): I50.43 - Acute on chronic combined systolic (congestive) and diastolic (congestive) heart failure Plan to address problem: IV Lasix and Aldactone Echocardiogram for ejection fraction, wall motion and valvular abnormalities (4) Hypertension Current Visit: Yes Status: Chronic Qualifiers: Hypertension type: primary hypertension Qualified Code(s): I10 - Essential (primary) hypertension Plan to address problem: Secondary to obesity Continue antihypertensives (5) T2DM (type 2 diabetes mellitus) Current Visit: Yes Status: Chronic Qualifiers: Diabetes mellitus licensed dispensing optician insulin use: unspecified half-way insulin use s tatus Plan to address problem: Coverage for now (6) Morbid obesity with BMI of 60.0-69.9, adult Current Visit: Yes Status: Chronic Plan to address problem: Patient definitely needs bariatric surgery Primary team to psychologist counseling him and refer to Dr. Ramirez----bariatric surgeon who is in-house (7) DVT prophylaxis Current Visit: Yes Status: Acute Plan to address problem: On heparin and GI prophylaxis (8) Advance care planning Current Visit: Yes Status: Acute Plan to address problem: Disease education conducted, care plan discussed, diagnosis discussed, and prognosis discussed. Patient acknowledged understanding with care plan. +30 minutes. History Interval history: Encephalopathic. present at bedside. Patient has a history of liver CA. Follows with [facility]. Hospitalist Physical - Physical exam Narrative exam: General appearance: Present: mild distress, well-nourished - EENT Eyes: Present: PERRL ENT: hearing intact, clear oral mucosa - Neck Neck: Present: supple, normal ROM - Respiratory Respiratory effort: normal Respiratory: bilateral: diminished - Cardiovascular Heart rate: 88 Rhythm: regular Heart Sounds: Present: S1 & S2. Absent: rub, click - Extremities Extremities: pulses symmetrical, No edema, abnormal (Cellulitis both lower EXTR) Peripheral Pulses: within normal limits - Abdominal General gastrointestinal: Present: soft, non-tender, non-distended, normal bowel sounds Male genitourinary: Present: normal - Integumentary Integumentary: Present: clear, warm, dry - Musculoskeletal Musculoskeletal: gait normal, strength equal bilaterally - Psychiatric Psychiatric: appropriate mood/affect, intact judgment & insight - Neurologic Neurologic: CNII-XII intact, moves all extremities - Constitutional Vitals: Temp Pulse Resp BP Pulse Ox 98.1 F 63 18 116/59 96 02/15/22 05:01 02/15/22 05:01 02/15/22 05:01 02/15/22 05:01 02/15/22 05:01 General appearance: Present: mild distress, well-nourished HEART Score - HEART Score Troponin: Troponin T < 0.010 ng/mL (0.00-0.029) 02/14/22 09:26 Results - Labs CBC & Chem 7: 02/15/22 08:59 02/15/22 08:59 Labs: Laboratory Last Values WBC 30.8 K/mm3 (4.5-11.0) H 02/15/22 05:07 RBC 4.50 M/mm3 (3.65-5.03) 02/15/22 05:07 Hgb 10.6 gm/dl (11.8-15.2) L 02/15/22 05:07 Hct 36.4 % (35.5-45.6) 02/15/22 05:07 MCV 81 fl (84-94) L 02/15/22 05:07 MCH 24 pg (28-32) L 02/15/22 05:07 MCHC 29 % (32-34) L 02/15/22 05:07 RDW 24.0 % (13.2-15.2) H 02/15/22 05:07 Plt Count 223 K/mm3 (140-440) 02/15/22 05:07 Add Manual Diff Complete 02/15/22 05:07 Total Counted 100 02/15/22 05:07 Seg Neuts % (Manual) 85.0 % (40.0-70.0) H 02/15/22 05:07 Band Neutrophils % 3.0 % 02/15/22 05:07 Lymphocytes % (Manual) 9.0 % (13.4-35.0) L 02/15/22 05:07 Reactive Lymphs % (Man) 0 % 02/15/22 05:07 Monocytes % (Manual) 0 % (0.0-7.3) 02/15/22 05:07 Eosinophils % (Manual) 0 % (0.0-4.3) 02/15/22 05:07 Basophils % (Manual) 1.0 % (0.0-1.8) 02/15/22 05:07 Metamyelocytes % 2.0 % 02/15/22 05:07 Myelocytes % 0 % 02/15/22 05:07 Promyelocytes % 0 % 02/15/22 05:07 Blast Cells % 0 % 02/15/22 05:07 Nucleated RBC % Not Reportable 02/15/22 05:07 Seg Neutrophils # Man 26.2 K/mm3 (1.8-7.7) H 02/15/22 05:07 Band Neutrophils # 0.9 K/mm3 02/15/22 05:07 Lymphocytes # (Manual) 2.8 K/mm3 (1.2-5.4) 02/15/22 05:07 Abs React Lymphs (Man) 0.0 K/mm3 02/15/22 05:07 Monocytes # (Manual) 0.0 K/mm3 (0.0-0.8) 02/15/22 05:07 Eosinophils # (Manual) 0.0 K/mm3 (0.0-0.4) 02/15/22 05:07 Basophils # (Manual) 0.3 K/mm3 (0.0-0.1) H 02/15/22 05:07 Metamyelocytes # 0.6 K/mm3 02/15/22 05:07 Myelocytes # 0.0 K/mm3 02/15/22 05:07 Promyelocytes # 0.0 K/mm3 02/15/22 05:07 Blast Cells # 0.0 K/mm3 02/15/22 05:07 WBC Morphology Not Reportable 02/15/22 05:07 Hypersegmented Neuts Not Reportable 02/15/22 05:07 Hyposegmented Neuts Not Reportable 02/15/22 05:07 Hypogranular Neuts Not Reportable 02/15/22 05:07 Smudge Cells Not Reportable 02/15/22 05:07 Toxic Granulation Not Reportable 02/15/22 05:07 Toxic Vacuolation Not Reportable 02/15/22 05:07 Dohle Bodies Not Reportable 02/15/22 05:07 Pelger-Huet Anomaly Not Reportable 02/15/22 05:07 Noa Rods Not Reportable 02/15/22 05:07 Platelet Estimate Consistent w auto 02/15/22 05:07 Clumped Platelets Not Reportable 02/15/22 05:07 Plt Clumps, EDTA Not Reportable 02/15/22 05:07 Large Platelets Not Reportable 02/15/22 05:07 Giant Platelets Not Reportable 02/15/22 05:07 Platelet Satelliting Not Reportable 02/15/22 05:07 Plt Morphology Comment Not Reportable 02/15/22 05:07 RBC Morphology Not Reportable 02/15/22 05:07 Dimorphic RBCs Not Reportable 02/15/22 05:07 Polychromasia Not Reportable 02/15/22 05:07 Hypochromasia 1+ 02/15/22 05:07 Poikilocytosis Not Reportable 02/15/22 05:07 Anisocytosis 2+ 02/15/22 05:07 Microcytosis Not Reportable 02/15/22 05:07 Macrocytosis Not Reportable 02/15/22 05:07 Spherocytes Not Reportable 02/15/22 05:07 Pappenheimer Bodies Not Reportable 02/15/22 05:07 Sickle Cells Not Reportable 02/15/22 05:07 Target Cells Not Reportable 02/15/22 05:07 Tear Drop Cells Not Reportable 02/15/22 05:07 Ovalocytes Not Reportable 02/15/22 05:07 Helmet Cells Not Reportable 02/15/22 05:07 [place] Bodies Not Reportable 02/15/22 05:07 [place] Rings Not Reportable 02/15/22 05:07 [place] Cells Not Reportable 02/15/22 05:07 Bite Cells Not Reportable 02/15/22 05:07 Crenated Cell Not Reportable 02/15/22 05:07 Elliptocytes Not Reportable 02/15/22 05:07 Acanthocytes (Spur) Not Reportable 02/15/22 05:07 Rouleaux Not Reportable 02/15/22 05:07 Hemoglobin C Crystals Not Reportable 02/15/22 05:07 Schistocytes Not Reportable 02/15/22 05:07 Malaria parasites Not Reportable 02/15/22 05:07 Cuco Bodies Not Reportable 02/15/22 05:07 Hem Pathologist Commnt No 02/15/22 05:07 PT 16.1 Sec. (12.2-14.9) H 02/14/22 09:26 INR 1.16 (0.87-1.13) H 02/14/22 09:26 Sodium 142 mmol/L (137-145) 02/15/22 05:07 Potassium 4.3 mmol/L (3.6-5.0) 02/15/22 05:07 Chloride 97.5 mmol/L (98-107) L 02/15/22 05:07 Carbon Dioxide 32 mmol/L (22-30) H 02/15/22 05:07 Anion Gap 17 mmol/L 02/15/22 05:07 BUN 12 mg/dL (9-20) 02/15/22 05:07 Creatinine 0.8 mg/dL (0.8-1.3) 02/15/22 05:07 Estimated GFR > 60 ml/min 02/15/22 05:07 BUN/Creatinine Ratio 15 % 02/15/22 05:07 Glucose 161 mg/dL (75-100) H 02/15/22 05:07 Lactic Acid 1.70 mmol/L (0.7-2.0) 02/14/22 09:26 Calcium 9.1 mg/dL (8.4-10.2) 02/15/22 05:07 Magnesium 2.30 mg/dL (1.7-2.3) 02/14/22 09:26 Total Bilirubin 0.70 mg/dL (0.1-1.2) 02/15/22 05:07 AST 10 units/L (5-40) 02/15/22 05:07 ALT 7 units/L (7-56) 02/15/22 05:07 Alkaline Phosphatase 80 units/L (35-129) 02/15/22 05:07 Total Creatine Kinase 45 units/L (55-170) L 02/14/22 09:26 CK-MB (CK-2) 4.0 ng/mL (0.0-4.0) 02/14/22 09:26 CK-MB (CK-2) Rel Index 8.8 (0-4) H 02/14/22 09:26 Troponin T < 0.010 ng/mL (0.00-0.029) 02/14/22 09:26 C-Reactive Protein 3.90 mg/dL (0.00-1.30) H 02/14/22 09:26 NT-Pro-B Natriuret Pep 1314 pg/mL (0-450) H 02/14/22 09:26 Total Protein 5.9 g/dL (6.3-8.2) L 02/15/22 05:07 Albumin 3.4 g/dL (3.9-5) L 02/15/22 05:07 Albumin/Globulin Ratio 1.4 % 02/15/22 05:07 Lipase 8 units/L (13-60) L 02/14/22 09:26 Urine Color Yellow (Yellow) 02/14/22 21:00 Urine Turbidity Clear (Clear) 02/14/22 21:00 Urine pH 8.0 (5.0-7.0) H 02/14/22 21:00 Ur Specific [facility] 1.010 (1.003-1.030) 02/14/22 21:00 Urine Protein <15 mg/dl mg/dL (Negative) 02/14/22 21:00 Urine Glucose (UA) Negative mg/dL (Negative) 02/14/22 21:00 Urine Ketones Negative mg/dL (Negative) 02/14/22 21:00 Urine Blood Negative (Negative) 02/14/22 21:00 Urine Nitrite Negative (Negative) 02/14/22 21:00 Urine Bilirubin Negative (Negative) 02/14/22 21:00 Urine Urobilinogen 0.2 mg/dL (<2.0) 02/14/22 21:00 Ur Leukocyte Esterase Negative (Negative) 02/14/22 21:00 Urine WBC (Auto) < 1.0 /HPF (0.0-6.0) 02/14/22 21:00 Urine RBC (Auto) < 1.0 /HPF (0.0-6.0) 02/14/22 21:00 U Epithel Cells (Auto) 1.0 /HPF (0-13.0) 02/14/22 21:00 Urine Mucus Few /HPF 02/14/22 21:00 Urine Opiates Screen Negative 02/14/22 21:00 Urine Methadone Screen Negative 02/14/22 21:00 Ur Barbiturates Screen Negative 02/14/22 21:00 Ur Phencyclidine Scrn Negative 02/14/22 21:00 Ur Amphetamines Screen Negative 02/14/22 21:00 U Benzodiazepines Scrn Negative 02/14/22 21:00 Urine Cocaine Screen Negative 02/14/22 21:00 U Marijuana (THC) Screen Negative 02/14/22 21:00 Drugs of Abuse Note Disclamer 02/14/22 21:00 Active Medications - Current Medications Current Medications: Generic Name Dose Route Start Last Admin Trade Name Freq PRN Reason Stop Dose Admin Acetaminophen 650 mg 02/14/22 20:28 Acetaminophen 325 Mg Tab PO Q4H PRN Pain MILD(1-3)/Fever >100.5/ARENAS Bupropion HCl 150 mg 02/14/22 22:00 02/14/22 23:20 Bupropion Sr 150 Mg Tab PO Not Given BID MICHELLE Clobetasol Propionate 1 applic 02/14/22 22:00 02/14/22 23:19 Clobetasol 0.05% Cream 15 Gm TP 1 applic BID MICHELLE Administration Famotidine 20 mg 02/14/22 22:00 02/14/22 21:58 Famotidine 20 Mg Tab PO 20 mg BID MICHELLE Administration Furosemide 40 mg 02/15/22 06:00 02/15/22 06:13 Furosemide 40 Mg/4 Ml Inj IV 40 mg 0600,1800 MICHELLE Administration Heparin Sodium (Porcine) 5,000 unit 02/14/22 22:00 02/14/22 21:57 Heparin 5,000 Unit/1 Ml Vial SUB-Q 5,000 unit Q12HR MICHELLE Administration Ampicillin Sodium/Sulbactam Sodium 3 gm in 100 mls @ 100 mls/hr 02/15/22 08:00 02/15/22 08:13 Unasyn/Ns 3 Gm/100 Ml IV 100 mls/hr Q6H MICHELLE Administration Protocol Metoclopramide HCl 10 mg 02/14/22 20:28 Metoclopramide 10 Mg/2 Ml Inj IV Q6H PRN Nausea And Vomiting Morphine Sulfate 2 mg 02/14/22 20:28 Morphine 2 Mg/1 Ml Inj IV Q4H PRN Pain, Moderate (4-6) Nicotine 14 mg 02/15/22 10:00 Nicotine 14 Mg/24 Hr Patch TD QDAY MICHELLE Ondansetron HCl 4 mg 02/14/22 20:28 Ondansetron 4 Mg/2 Ml Inj IV Q8H PRN Nausea And Vomiting Oxycodone/Acetaminophen 1 tab 02/14/22 20:28 Oxycodone /Acetaminophen 5-325mg Tab PO Q6H PRN Pain, Moderate (4-6) Pantoprazole Sodium 20 mg 02/14/22 21:00 02/14/22 21:57 Pantoprazole 20 Mg Tab PO 20 mg QDAY MICHELLE Administration Sodium Chloride 10 ml 02/14/22 22:00 02/14/22 23:20 Sodium Chloride 0.9% 10 Ml Flush Syringe IV 10 ml BID MICHELLE Administration Sodium Chloride 10 ml 02/14/22 20:28 Sodium Chloride 0.9% 10 Ml Flush Syringe IV PRN PRN LINE FLUSH Spironolactone 50 mg 02/14/22 21:00 02/14/22 23:19 Spironolactone 50 Mg Tab PO Not Given QDAY MICHELLE
[2022-02-15] MEDS: PANTOPRAZOLE 20 MG TAB PO SCH (09:08)
[2022-02-15] MEDS: FAMOTIDINE 20 MG TAB PO SCH ×2 (09:08→21:34)
[2022-02-15] MEDS: SPIRONOLACTONE 50 MG TAB PO SCH (09:08)
[2022-02-15] MEDS: buPROPion SR 150 MG TAB PO SCH ×2 (09:08→21:34)
[2022-02-15] MEDS: NICOTINE 14 MG/24 HR PATCH TD SCH (09:09)
[2022-02-15 09:46] LABS: INR 1.2 (0.87-1.13)
[2022-02-15 10:03] LABS: Mean Corpuscular HGB Conc 28 % (32-34); Mean Corpuscular Volume 86 fl (84-94); Platelet Count 142 K/mm3 (140-440); Red Blood Count 5.24 M/mm3 (3.65-5.03)
[2022-02-15 10:04] LABS: Hematocrit 45.1 % (35.5-45.6); Hemoglobin 12.6 gm/dl (11.8-15.2); Red Cell Distribution Width 25.3 % (13.2-15.2)
[2022-02-15] MEDS: APIXABAN 5 MG TAB PO SCH ×2 (11:00→21:35)
[2022-02-15] MEDS: CLOBETASOL 0.05% CREAM 15 GM TP SCH ×2 (11:00→21:33)
--- NOTE | 2022-02-15 12:13 | Consultation ---
History of Present Illness Consult date: 02/15/22 Requesting physician: LAILA GOLDMAN Consult reason: congestive heart failure History of present illness: Patientis a 31 y.o.malewith history ofsevere morbid obesity, chroniclymphedema, and chronic HFpEF, presents to ED for evaluation ofworsening SOB x2 days. Patient reports that he just felt weak and does not feel well. He denies chest pain, nausea, vomiting, diaphoresis, or chills. Of note patient was recently discharged from [place] on 02/13/2022 and diagnosed with acute PEs and started on Eliquis. In the ED patient was found to have leukocytosis with WBC greater than 30,000 and elevated BNP. Patient is previously unknown to our practice. Cardiology was consulted for CHF. Past History Past Medical History: heart failure, other (russel, PE,chronic lymphedema) Past Surgical History: cholecystectomy Social history: no significant social history Family history: hypertension Medications and Allergies Allergies Allergy/AdvReac Type Severity Reaction Status Date / Time clindamycin Allergy Stearns/Rash Verified 02/15/22 10:14 doxycycline Allergy Stearns/Rash Verified 02/15/22 10:14 latex Allergy Stearns/Rash Verified 02/15/22 10:14 metformin Allergy Stearns/Rash Verified 02/15/22 10:14 sulfamethoxazole Allergy Swelling Verified 02/15/22 10:14 [From Bactrim] trimethoprim [From Bactrim] Allergy Swelling Verified 02/15/22 10:14 vancomycin Allergy Hives Verified 02/15/22 10:14 Home Medications Medication Instructions Recorded Confirmed Last Taken Type Nicotine [Habitrol] 14 mg TD QDAY #20 patch 01/31/20 02/15/22 02/13/22 Rx Apixaban [Eliquis] 5 mg PO BID 02/15/22 02/15/22 Unknown History Furosemide [Lasix TAB] 80 mg PO BID 02/15/22 02/15/22 02/14/22 History Potassium Chloride [K-Dur] 20 meq PO QDAY 02/15/22 02/15/22 Unknown History traMADoL [Ultram] 50 mg PO BID PRN 02/15/22 02/15/22 Unknown History Active Meds: Active Medications Acetaminophen (Acetaminophen 325 Mg Tab) 650 mg PO Q4H PRN PRN Reason: Pain MILD(1-3)/Fever >100.5/ARENAS Apixaban (Apixaban 5 Mg Tab) 10 mg PO Q12HR [facility]; Protocol Stop: 02/21/22 22:01 Last Admin: 02/15/22 11:00 Dose: 10 mg Apixaban (Apixaban 5 Mg Tab) 5 mg PO Q12HR [facility]; Protocol Bupropion HCl (Bupropion Sr 150 Mg Tab) 150 mg PO BID [facility] Last Admin: 02/15/22 09:08 Dose: 150 mg Clobetasol Propionate (Clobetasol 0.05% Cream 15 Gm) 1 applic TP BID [facility] Last Admin: 02/15/22 11:00 Dose: Not Given Famotidine (Famotidine 20 Mg Tab) 20 mg PO BID [facility] Last Admin: 02/15/22 09:08 Dose: 20 mg Furosemide (Furosemide 40 Mg/4 Ml Inj) 40 mg IV 0600,1800 [facility] Last Admin: 02/15/22 06:13 Dose: 40 mg Ampicillin Sodium/Sulbactam Sodium (Unasyn/Ns 3 Gm/100 Ml) 3 gm in 100 mls @ 100 mls/hr IV Q6H [facility]; Protocol Last Admin: 02/15/22 08:13 Dose: 100 mls/hr Metoclopramide HCl (Metoclopramide 10 Mg/2 Ml Inj) 10 mg IV Q6H PRN PRN Reason: Nausea And Vomiting Morphine Sulfate (Morphine 2 Mg/1 Ml Inj) 2 mg IV Q4H PRN PRN Reason: Pain, Moderate (4-6) Nicotine (Nicotine 14 Mg/24 Hr Patch) 14 mg TD QDAY [facility] Last Admin: 02/15/22 09:09 Dose: 14 mg Ondansetron HCl (Ondansetron 4 Mg/2 Ml Inj) 4 mg IV Q8H PRN PRN Reason: Nausea And Vomiting Oxycodone/Acetaminophen (Oxycodone /Acetaminophen 5-325mg Tab) 1 tab PO Q6H PRN PRN Reason: Pain, Moderate (4-6) Pantoprazole Sodium (Pantoprazole 20 Mg Tab) 20 mg PO QDAY [facility] Last Admin: 02/15/22 09:08 Dose: 20 mg Sodium Chloride (Sodium Chloride 0.9% 10 Ml Flush Syringe) 10 ml IV BID [facility] Last Admin: 02/15/22 09:09 Dose: 10 ml Sodium Chloride (Sodium Chloride 0.9% 10 Ml Flush Syringe) 10 ml IV PRN PRN PRN Reason: LINE FLUSH Spironolactone (Spironolactone 50 Mg Tab) 50 mg PO QDAY MICHELLE Last Admin: 02/15/22 09:08 Dose: 50 mg Review of Systems Constitutional: weakness, no weight loss, no weight gain Ears, nose, mouth and throat: no sinus pressure, no sinus pain Cardiovascular: shortness of breath, dyspnea on exertion, no chest pain, no orthopnea Respiratory: shortness of breath, dyspnea on exertion Gastrointestinal: no abdominal pain, no nausea, no vomiting Musculoskeletal: no neck stiffness, no neck pain Integumentary: other (chronic lymphedema) Neurological: no head injury, no transient paralysis Psychiatric: no anxiety, no memory loss Endocrine: no cold intolerance, no heat intolerance Physical Examination Vital Signs Temp Pulse Resp BP Pulse Ox 98.1 F 100 H 18 118/65 92 02/14/22 08:44 02/14/22 08:44 02/14/22 08:44 02/14/22 08:44 02/14/22 08:44 General appearance: no acute distress Neck: Positive: trachea midline Cardiac: Positive: Reg Rate and Rhythm Lungs: Positive: Decreased Breath Sounds Neuro: Positive: Grossly Intact Abdomen: Positive: Soft Skin: Positive: Other. Negative: Rash Extremities: Present: upper extr. pulses, edema (chronic lymphedema) Results 02/15/22 08:59 02/15/22 08:59 Cardiac Enzymes 02/15/22 Range/Units 05:07 AST 10 (5-40) units/L Coagulation 02/15/22 Range/Units 08:59 PT 16.6 H (12.2-14.9) Sec. INR 1.20 H (0.87-1.13) APTT 31.0 (24.2-36.6) Sec. CBC 02/15/22 02/15/22 Range/Units 05:07 08:59 WBC 30.8 H 31.0 H (4.5-11.0) K/mm3 RBC 4.50 5.24 H (3.65-5.03) M/mm3 Hgb 10.6 L 12.6 (11.8-15.2) gm/dl Hct 36.4 45.1 D (35.5-45.6) % Plt Count 223 142 (140-440) K/mm3 Comprehensive Metabolic Panel 02/15/22 02/15/22 Range/Units 05:07 08:59 Sodium 142 (137-145) mmol/L Potassium 4.3 (3.6-5.0) mmol/L Chloride 97.5 L (98-107) mmol/L Carbon Dioxide 32 H (22-30) mmol/L BUN 12 (9-20) mg/dL Creatinine 0.8 1.0 (0.8-1.3) mg/dL Glucose 161 H (75-100) mg/dL Calcium 9.1 (8.4-10.2) mg/dL AST 10 (5-40) units/L ALT 7 (7-56) units/L Alkaline Phosphatase 80 (35-129) units/L Total Protein 5.9 L (6.3-8.2) g/dL Albumin 3.4 L (3.9-5) g/dL - Imaging and Cardiology Echo: report reviewed EKG: report reviewed, image reviewed EKG interpretations - Telemetry EKG Rhythm: Sinus Rhythm - EKG Sinus rhythms and dysrhythmias: sinus rhythm Assessment and Plan Patientis a 31 y.o.malewith history ofsevere morbid obesity, chroniclymphedema, and chronic HFpEF, presents to ED for evaluation ofworsening SOB x2 days Sepsis Acute on chronic HFpEF Acute PE Chronic lymphedema Severe morbid obesity RUSSEL Echo 02/09/2022-the study was technically difficult in quality. LVEF is 49%. Technically limited study. Right ventricle not well visualized but does appear dilated with decreased function visually. By measurement however RV systolic function is normal. Trace tricuspid regurgitation. Mildly elevated RV systolic pressure Compared to 10/06/2021 LV function slightly decreased. Plan: EKG shows sinus rhythm rate 62 no acute ischemic changes. Patient complains of chest pain. Troponin negative x1 BNP elevated in the setting of acute PE Per review of records at [place] patient in the late Lasix 80 mg p.o. daily as an outpatient. Okay to resume Initiate Eliquis 10 mg p.o. twice daily x7-day for anticoagulation and transition to Eliquis 5 mg p.o. twice daily after Upon review of records patient did not have bilateral lower extremity venous Dopplers to rule out DVT. Bilateral venous Dopplers ordered Suspect patient symptoms related to acute PE and sepsis Due to patient's size unable to perform any ischemic eval Cardiac status appears otherwise stable. Will see as needed Patient seen in conjunction with Dr. Mckay who agrees with plan of care - Patient Problems (1) Pulmonary emboli Current Visit: Yes Status: Acute (2) Acute exacerbation of CHF (congestive heart failure) Current Visit: Yes Status: Acute Qualifiers: Heart failure type: combined systolic and diastolic Qualified Code(s): I50.43 - Acute on chronic combined systolic (congestive) and diastolic (congestive) heart failure (3) Cellulitis of both lower extremities Current Visit: Yes Status: Acute (4) Dyspnea Current Visit: Yes Status: Acute (5) Leukocytosis Current Visit: Yes Status: Acute (6) Sepsis Current Visit: Yes Status: Acute (7) Lymphedema Current Visit: Yes Status: Chronic (8) Morbid obesity with BMI of 60.0-69.9, adult Current Visit: Yes Status: Chronic (9) Acute respiratory failure with hypoxia Current Visit: No Status: Acute
--- NOTE | 2022-02-15 14:39 | Progress Note ---
Assessment and Plan Assessment and plan: History of present illness: 31-year-old morbidly obese male comes in for shortness of breath and redness of both lower extremities. No fever or chills. Patient is on 2 L home oxygen. Patient barely moves from bed to the restroom and back. Mostly bedridden. Severely obese. Patient is admitted by me in the past for CHF. Patient also has obstructive sleep apnea. Hospital Course: 02/15: Continue GDMT for CHF. Patient has a history of BL PE in the past. Restarted home Eliquis. Patient is concerned he cannot care for self, having more difficulty with ambulation. Ordered PT consultation. Assessment and Plan: (1) Sepsis Current Visit: Yes Status: Acute Plan to address problem: Patient has a high white count of 34,000 Possible source of infection lower extremity infection of soft tissues (2) Cellulitis of both lower extremities Current Visit: Yes Status: Acute Plan to address problem: Patient initiated on Unasyn and vancomycin Will continue thorugh tomorrow and likely d/c. (3) Acute exacerbation of CHF (congestive heart failure) Current Visit: Yes Status: Acute Qualifiers: Heart failure type: combined systolic and diastolic Qualified Code(s): I50.43 - Acute on chronic combined systolic (congestive) and diastolic (congestive) heart failure Plan to address problem: IV Lasix and Aldactone Echocardiogram for ejection fraction, wall motion and valvular abnormalities (4) Hypertension Current Visit: Yes Status: Chronic Qualifiers: Hypertension type: primary hypertension Qualified Code(s): I10 - Essential (primary) hypertension Plan to address problem: Secondary to obesity Continue antihypertensives (5) T2DM (type 2 diabetes mellitus) Current Visit: Yes Status: Chronic Qualifiers: Diabetes mellitus retirement insulin use: unspecified intermediate frame tender insulin use status Plan to address problem: Coverage for now (6) Morbid obesity with BMI of 60.0-69.9, adult Current Visit: Yes Status: Chronic Plan to address problem: Patient definitely needs bariatric surgery Primary team to funeral planning counselor him and refer to Dr. Ramirez----bariatric surgeon who is in-house (7) DVT prophylaxis Current Visit: Yes Status: Acute Plan to address problem: On heparin and GI prophylaxis (8) Advance care planning Current Visit: Yes Status: Acute Plan to address problem: Disease education conducted, care plan discussed, diagnosis discussed, and prognosis discussed. Patient acknowledged understanding with care plan. +30 minutes. History Interval history: Complaining of some mild weakness. States that he has trouble with ambulation and weakness but in general is able to. Hospitalist Physical - Physical exam Narrative exam: General appearance: Present: mild distress, well-nourished - EENT Eyes: Present: PERRL ENT: hearing intact, clear oral mucosa - Neck Neck: Present: supple, normal ROM - Respiratory Respiratory effort: normal Respiratory: bilateral: diminished - Cardiovascular Heart rate: 88 Rhythm: regular Heart Sounds: Present: S1 & S2. Absent: rub, click - Extremities Extremities: pulses symmetrical, No edema, abnormal (Cellulitis both lower EXTR) Peripheral Pulses: within normal limits - Abdominal General gastrointestinal: Present: soft, non-tender, non-distended, normal bowel sounds Male genitourinary: Present: normal - Integumentary Integumentary: Present: clear, warm, dry - Musculoskeletal Musculoskeletal: gait normal, strength equal bilaterally - Psychiatric Psychiatric: appropriate mood/affect, intact judgment & insight - Neurologic Neurologic: CNII-XII intact, moves all extremities - Constitutional Vitals: Temp Pulse Resp BP Pulse Ox 98.1 F 63 18 116/59 96 02/15/22 05:01 02/15/22 05:01 02/15/22 05:01 02/15/22 05:01 02/15/22 05:01 General appearance: Present: mild distress, well-nourished HEART Score - HEART Score Troponin: Troponin T < 0.010 ng/mL (0.00-0.029) 02/14/22 09:26 Results - Labs CBC & Chem 7: 02/15/22 08:59 02/15/22 08:59 Labs: Laboratory Last Values WBC 31.0 K/mm3 (4.5-11.0) H 02/15/22 08:59 RBC 5.24 M/mm3 (3.65-5.03) H 02/15/22 08:59 Hgb 12.6 gm/dl (11.8-15.2) 02/15/22 08:59 Hct 45.1 % (35.5-45.6) D 02/15/22 08:59 MCV 86 fl (84-94) 02/15/22 08:59 MCH 24 pg (28-32) L 02/15/22 08:59 MCHC 28 % (32-34) L 02/15/22 08:59 RDW 25.3 % (13.2-15.2) H 02/15/22 08:59 Plt Count 142 K/mm3 (140-440) 02/15/22 08:59 Add Manual Diff Complete 02/15/22 05:07 Total Counted 100 02/15/22 05:07 Seg Neuts % (Manual) 85.0 % (40.0-70.0) H 02/15/22 05:07 Band Neutrophils % 3.0 % 02/15/22 05:07 Lymphocytes % (Manual) 9.0 % (13.4-35.0) L 02/15/22 05:07 Reactive Lymphs % (Man) 0 % 02/15/22 05:07 Monocytes % (Manual) 0 % (0.0-7.3) 02/15/22 05:07 Eosinophils % (Manual) 0 % (0.0-4.3) 02/15/22 05:07 Basophils % (Manual) 1.0 % (0.0-1.8) 02/15/22 05:07 Metamyelocytes % 2.0 % 02/15/22 05:07 Myelocytes % 0 % 02/15/22 05:07 Promyelocytes % 0 % 02/15/22 05:07 Blast Cells % 0 % 02/15/22 05:07 Nucleated RBC % Not Reportable 02/15/22 05:07 Seg Neutrophils # Man 26.2 K/mm3 (1.8-7.7) H 02/15/22 05:07 Band Neutrophils # 0.9 K/mm3 02/15/22 05:07 Lymphocytes # (Manual) 2.8 K/mm3 (1.2-5.4) 02/15/22 05:07 Abs React Lymphs (Man) 0.0 K/mm3 02/15/22 05:07 Monocytes # (Manual) 0.0 K/mm3 (0.0-0.8) 02/15/22 05:07 Eosinophils # (Manual) 0.0 K/mm3 (0.0-0.4) 02/15/22 05:07 Basophils # (Manual) 0.3 K/mm3 (0.0-0.1) H 02/15/22 05:07 Metamyelocytes # 0.6 K/mm3 02/15/22 05:07 Myelocytes # 0.0 K/mm3 02/15/22 05:07 Promyelocytes # 0.0 K/mm3 02/15/22 05:07 Blast Cells # 0.0 K/mm3 02/15/22 05:07 WBC Morphology Not Reportable 02/15/22 05:07 Hypersegmented Neuts Not Reportable 02/15/22 05:07 Hyposegmented Neuts Not Reportable 02/15/22 05:07 Hypogranular Neuts Not Reportable 02/15/22 05:07 Smudge Cells Not Reportable 02/15/22 05:07 Toxic Granulation Not Reportable 02/15/22 05:07 Toxic Vacuolation Not Reportable 02/15/22 05:07 Dohle Bodies Not Reportable 02/15/22 05:07 Pelger-Huet Anomaly Not Reportable 02/15/22 05:07 Noa Rods Not Reportable 02/15/22 05:07 Platelet Estimate Consistent w auto 02/15/22 05:07 Clumped Platelets Not Reportable 02/15/22 05:07 Plt Clumps, EDTA Not Reportable 02/15/22 05:07 Large Platelets Not Reportable 02/15/22 05:07 Giant Platelets Not Reportable 02/15/22 05:07 Platelet Satelliting Not Reportable 02/15/22 05:07 Plt Morphology Comment Not Reportable 02/15/22 05:07 RBC Morphology Not Reportable 02/15/22 05:07 Dimorphic RBCs Not Reportable 02/15/22 05:07 Polychromasia Not Reportable 02/15/22 05:07 Hypochromasia 1+ 02/15/22 05:07 Poikilocytosis Not Reportable 02/15/22 05:07 Anisocytosis 2+ 02/15/22 05:07 Microcytosis Not Reportable 02/15/22 05:07 Macrocytosis Not Reportable 02/15/22 05:07 Spherocytes Not Reportable 02/15/22 05:07 Pappenheimer Bodies Not Reportable 02/15/22 05:07 Sickle Cells Not Reportable 02/15/22 05:07 Target Cells Not Reportable 02/15/22 05:07 Tear Drop Cells Not Reportable 02/15/22 05:07 Ovalocytes Not Reportable 02/15/22 05:07 Helmet Cells Not Reportable 02/15/22 05:07 [place] Bodies Not Reportable 02/15/22 05:07 [place] Rings Not Reportable 02/15/22 05:07 Mignon Cells Not Reportable 02/15/22 05:07 Bite Cells Not Reportable 02/15/22 05:07 Crenated Cell Not Reportable 02/15/22 05:07 Elliptocytes Not Reportable 02/15/22 05:07 Acanthocytes (Spur) Not Reportable 02/15/22 05:07 Rouleaux Not Reportable 02/15/22 05:07 Hemoglobin C Crystals Not Reportable 02/15/22 05:07 Schistocytes Not Reportable 02/15/22 05:07 Malaria parasites Not Reportable 02/15/22 05:07 Cuco Bodies Not Reportable 02/15/22 05:07 Hem Pathologist Commnt No 02/15/22 05:07 PT 16.6 Sec. (12.2-14.9) H 02/15/22 08:59 INR 1.20 (0.87-1.13) H 02/15/22 08:59 APTT 31.0 Sec. (24.2-36.6) 02/15/22 08:59 Sodium 142 mmol/L (137-145) 02/15/22 05:07 Potassium 4.3 mmol/L (3.6-5.0) 02/15/22 05:07 Chloride 97.5 mmol/L (98-107) L 02/15/22 05:07 Carbon Dioxide 32 mmol/L (22-30) H 02/15/22 05:07 Anion Gap 17 mmol/L 02/15/22 05:07 BUN 12 mg/dL (9-20) 02/15/22 05:07 Creatinine 1.0 mg/dL (0.8-1.3) 02/15/22 08:59 Estimated GFR > 60 ml/min 02/15/22 08:59 BUN/Creatinine Ratio 15 % 02/15/22 05:07 Glucose 161 mg/dL (75-100) H 02/15/22 05:07 Lactic Acid 1.70 mmol/L (0.7-2.0) 02/14/22 09:26 Calcium 9.1 mg/dL (8.4-10.2) 02/15/22 05:07 Magnesium 2.30 mg/dL (1.7-2.3) 02/14/22 09:26 Total Bilirubin 0.70 mg/dL (0.1-1.2) 02/15/22 05:07 AST 10 units/L (5-40) 02/15/22 05:07 ALT 7 units/L (7-56) 02/15/22 05:07 Alkaline Phosphatase 80 units/L (35-129) 02/15/22 05:07 Total Creatine Kinase 45 units/L (55-170) L 02/14/22 09:26 CK-MB (CK-2) 4.0 ng/mL (0.0-4.0) 02/14/22 09:26 CK-MB (CK-2) Rel Index 8.8 (0-4) H 02/14/22 09:26 Troponin T < 0.010 ng/mL (0.00-0.029) 02/14/22 09:26 C-Reactive Protein 3.90 mg/dL (0.00-1.30) H 02/14/22 09:26 NT-Pro-B Natriuret Pep 1314 pg/mL (0-450) H 02/14/22 09:26 Total Protein 5.9 g/dL (6.3-8.2) L 02/15/22 05:07 Albumin 3.4 g/dL (3.9-5) L 02/15/22 05:07 Albumin/Globulin Ratio 1.4 % 02/15/22 05:07 Lipase 8 units/L (13-60) L 02/14/22 09:26 Urine Color Yellow (Yellow) 02/14/22 21:00 Urine Turbidity Clear (Clear) 02/14/22 21:00 Urine pH 8.0 (5.0-7.0) H 02/14/22 21:00 Ur Specific [place] 1.010 (1.003-1.030) 02/14/22 21:00 Urine Protein <15 mg/dl mg/dL (Negative) 02/14/22 21:00 Urine Glucose (UA) Negative mg/dL (Negative) 02/14/22 21:00 Urine Ketones Negative mg/dL (Negative) 02/14/22 21:00 Urine Blood Negative (Negative) 02/14/22 21:00 Urine Nitrite Negative (Negative) 02/14/22 21:00 Urine Bilirubin Negative (Negative) 02/14/22 21:00 Urine Urobilinogen 0.2 mg/dL (<2.0) 02/14/22 21:00 Ur Leukocyte Esterase Negative (Negative) 02/14/22 21:00 Urine WBC (Auto) < 1.0 /HPF (0.0-6.0) 02/14/22 21:00 Urine RBC (Auto) < 1.0 /HPF (0.0-6.0) 02/14/22 21:00 U Epithel Cells (Auto) 1.0 /HPF (0-13.0) 02/14/22 21:00 Urine Mucus Few /HPF 02/14/22 21:00 Urine Opiates Screen Negative 02/14/22 21:00 Urine Methadone Screen Negative 02/14/22 21:00 Ur Barbiturates Screen Negative 02/14/22 21:00 Ur Phencyclidine Scrn Negative 02/14/22 21:00 Ur Amphetamines Screen Negative 02/14/22 21:00 U Benzodiazepines Scrn Negative 02/14/22 21:00 Urine Cocaine Screen Negative 02/14/22 21:00 U Marijuana (THC) Screen Negative 02/14/22 21:00 Drugs of Abuse Note Disclamer 02/14/22 21:00 Active Medications - Current Medications Current Medications: Generic Name Dose Route Start Last Admin Trade Name Freq PRN Reason Stop Dose Admin Acetaminophen 650 mg 02/14/22 20:28 Acetaminophen 325 Mg Tab PO Q4H PRN Pain MILD(1-3)/Fever >100.5/ARENAS Apixaban 10 mg 02/15/22 10:00 02/15/22 11:00 Apixaban 5 Mg Tab PO 02/21/22 22:01 10 mg Q12HR MICHELLE Administration Protocol Apixaban 5 mg 02/22/22 10:00 Apixaban 5 Mg Tab PO Q12HR MICHELLE Protocol Bupropion HCl 150 mg 02/14/22 22:00 02/15/22 09:08 Bupropion Sr 150 Mg Tab PO 150 mg BID MICHELLE Administration Clobetasol Propionate 1 applic 02/14/22 22:00 02/15/22 11:00 Clobetasol 0.05% Cream 15 Gm TP Not Given BID MICHELLE Famotidine 20 mg 02/14/22 22:00 02/15/22 09:08 Famotidine 20 Mg Tab PO 20 mg BID MICHELLE Administration Furosemide 40 mg 02/15/22 06:00 02/15/22 06:13 Furosemide 40 Mg/4 Ml Inj IV 40 mg 0600,1800 MICHELLE Administration Ampicillin Sodium/Sulbactam Sodium 3 gm in 100 mls @ 100 mls/hr 02/15/22 08:00 02/15/22 08:13 Unasyn/Ns 3 Gm/100 Ml IV 100 mls/hr Q6H MICHELLE Administration Protocol Metoclopramide HCl 10 mg 02/14/22 20:28 Metoclopramide 10 Mg/2 Ml Inj IV Q6H PRN Nausea And Vomiting Morphine Sulfate 2 mg 02/14/22 20:28 Morphine 2 Mg/1 Ml Inj IV Q4H PRN Pain, Moderate (4-6) Nicotine 14 mg 02/15/22 10:00 02/15/22 09:09 Nicotine 14 Mg/24 Hr Patch TD 14 mg QDAY MICHELLE Administration Ondansetron HCl 4 mg 02/14/22 20:28 Ondansetron 4 Mg/2 Ml Inj IV Q8H PRN Nausea And Vomiting Oxycodone/Acetaminophen 1 tab 02/14/22 20:28 Oxycodone /Acetaminophen 5-325mg Tab PO Q6H PRN Pain, Moderate (4-6) Pantoprazole Sodium 20 mg 02/14/22 21:00 02/15/22 09:08 Pantoprazole 20 Mg Tab PO 20 mg QDAY MICHELLE Administration Sodium Chloride 10 ml 02/14/22 22:00 02/15/22 09:09 Sodium Chloride 0.9% 10 Ml Flush Syringe IV 10 ml BID MICHELLE Administration Sodium Chloride 10 ml 02/14/22 20:28 Sodium Chloride 0.9% 10 Ml Flush Syringe IV PRN PRN LINE FLUSH Spironolactone 50 mg 02/14/22 21:00 02/15/22 09:08 Spironolactone 50 Mg Tab PO 50 mg QDAY MICHELLE Administration
--- NOTE | 2022-02-15 16:32 | Vascular Lab Report ---
DUPLEX DOPPLER LOWER EXTREMITY VEINS, BILATERAL INDICATION / CLINICAL INFORMATION: Lower extremity pain and swelling. TECHNIQUE: Duplex doppler imaging was performed through the veins of both lower extremities using luiz ous compression and other maneuvers. COMPARISON: Bilateral lower extremity venous Doppler 10/20/2018. FINDINGS: RIGHT COMMON FEMORAL VEIN: Negative. RIGHT FEMORAL VEIN: Negative. RIGHT POPLITEAL VEIN: Negative. RIGHT CALF VEINS: Peroneal veins are not visualized. No evidence of thrombus. LEFT COMMON FEMORAL VEIN: Negative. LEFT FEMORAL VEIN: Negative. LEFT POPLITEAL VEIN: Occlusive thrombus. LEFT CALF VEINS: Peroneal veins are not visualized. No evidence of thrombus. ADDITIONAL FINDINGS: None. IMPRESSION: Technically limited exam due to patient body habitus and severe lymphedema. 1. Occlusive DVT is visualized in the left popliteal vein. The results were communicated by the wardrobe attendant to KATEY Aceves at 1234. Scribed by: Moni Jackson RDMS, MEAGANT, JULISSAKS Scribed: 02/15/2022 2:47 PM I have reviewed the images, agree with this report, and edited this report as needed. Signer Name: Leopoldo Danielle MD Signed: 02/15/2022 4:28 PM Workstation Name: [id number]
[2022-02-16] MEDS: AMPICILLIN/SULBACTA 3GM/100ML 3 GM/100 ML BAG IV SCH ×4 (02:08→21:49)
[2022-02-16] MEDS: FUROSEMIDE 40 MG/4 ML INJ IV SCH ×2 (06:06→17:21)
[2022-02-16 07:34] LABS: Alanine Aminotransferase 8 units/L (7-56); Albumin 3.5 g/dL (3.9-5); BUN/Creatinine Ratio 17; Blood Urea Nitrogen 15 mg/dL (9-20); Calcium 8.9 mg/dL (8.4-10.2); Hemolysis Index 23
[2022-02-16] MEDS: PANTOPRAZOLE 20 MG TAB PO SCH (10:57)
[2022-02-16] MEDS: SPIRONOLACTONE 50 MG TAB PO SCH (10:57)
[2022-02-16] MEDS: FAMOTIDINE 20 MG TAB PO SCH ×2 (10:57→21:41)
[2022-02-16] MEDS: APIXABAN 5 MG TAB PO SCH ×2 (10:57→21:40)
[2022-02-16] MEDS: NICOTINE 14 MG/24 HR PATCH TD SCH (10:58)
[2022-02-16] MEDS: buPROPion SR 150 MG TAB PO SCH ×2 (10:58→21:41)
--- NOTE | 2022-02-16 13:18 | Progress Note ---
Assessment and Plan Assessment and plan: History of present illness: 31-year-old morbidly obese male comes in for shortness of breath and redness of both lower extremities. No fever or chills. Patient is on 2 L home oxygen. Patient barely moves from bed to the restroom and back. Mostly bedridden. Severely obese. Patient is admitted by me in the past for CHF. Patient also has obstructive sleep apnea. Hospital Course: 02/15: Continue GDMT for CHF. Patient has a history of BL PE in the past. Restarted home Eliquis. Patient is concerned he cannot care for self, having more difficulty with ambulation. Ordered PT consultation. 02/16: Awaiting PT assessment. Patient appears to be close to baseline. Doppler US of LE demonstrate LLE DVT. Eliquis restarted yesterday for ongoing tx of PE. Plan for d/c in next 24 hrs pending PT eval. Assessment and Plan: #Pulmonary embolism - diagnosed prior to admission at [facility] - [place] eliquis resumed #Deep vein thrombosis - diagnosed this admission on lower extremity ultrasound - home eliquis resumed #Sepsis Current Visit: Yes Status: Acute Plan to address problem: Patient has a high white count of 34,000 Possible source of infection lower extremity infection of soft tissues #Cellulitis of both lower extremities Current Visit: Yes Status: Acute Plan to address problem: Patient initiated on Unasyn and vancomycin Will continue thorugh tomorrow and likely d/c. #Acute exacerbation of CHF (congestive heart failure) Current Visit: Yes Status: Acute Qualifiers: Heart failure type: combined systolic and diastolic Qualified Code(s): I50.43 - Acute on chronic combined systolic (congestive) and diastolic (congestive) heart failure Plan to address problem: IV Lasix and Aldactone Echocardiogram for ejection fraction, wall motion and valvular abnormalities # Hypertension Current Visit: Yes Status: Chronic Qualifiers: Hypertension type: primary hypertension Qualified Code(s): I10 - Essential (primary) hypertension Plan to address problem: Secondary to obesity Continue antihypertensives # T2DM (type 2 diabetes mellitus) Current Visit: Yes Status: Chronic Qualifiers: Diabetes mellitus supervisor long goods insulin use: unspecified jail insulin use s tatus Plan to address problem: Coverage for now #Morbid obesity with BMI of 60.0-69.9, adult Current Visit: Yes Status: Chronic Plan to address problem: Patient definitely needs bariatric surgery Primary team to professor of counseling him and refer to Dr. Ramirez----bariatric surgeon who is in-house #DVT prophylaxis Current Visit: Yes Status: Acute Plan to address problem: On heparin and GI prophylaxis #Advance care planning Current Visit: Yes Status: Acute Plan to address problem: Disease education conducted, care plan discussed, diagnosis discussed, and prognosis discussed. Patient acknowledged understanding with care plan. +30 minutes. History Interval history: No acute complaints this AM. Discussed lab/imaging findings from yesterday with patient. Hospitalist Physical - Physical exam Narrative exam: General appearance: Present: mild distress, well-nourished - EENT Eyes: Present: PERRL ENT: hearing intact, clear oral mucosa - Neck Neck: Present: supple, normal ROM - Respiratory Respiratory effort: normal Respiratory: bilateral: diminished - Cardiovascular Heart rate: 88 Rhythm: regular Heart Sounds: Present: S1 & S2. Absent: rub, click - Extremities Extremities: pulses symmetrical, No edema, abnormal (Cellulitis both lower EXTR) Peripheral Pulses: within normal limits - Abdominal General gastrointestinal: Present: soft, non-tender, non-distended, normal bowel sounds Male genitourinary: Present: normal - Integumentary Integumentary: Present: clear, warm, dry - Musculoskeletal Musculoskeletal: gait normal, strength equal bilaterally - Psychiatric Psychiatric: appropriate mood/affect, intact judgment & insight - Neurologic Neurologic: CNII-XII intact, moves all extremities - Constitutional Vitals: Temp Pulse Resp BP Pulse Ox 98.3 F 64 19 108/46 93 02/16/22 07:58 02/16/22 11:08 02/16/22 08:00 02/16/22 11:08 02/16/22 10:43 General appearance: Present: mild distress, well-nourished HEART Score - HEART Score Troponin: Troponin T < 0.010 ng/mL (0.00-0.029) 02/14/22 09:26 Results - Labs CBC & Chem 7: 02/15/22 08:59 02/16/22 05:38 Labs: Laboratory Last Values WBC 31.0 K/mm3 (4.5-11.0) H 02/15/22 08:59 RBC 5.24 M/mm3 (3.65-5.03) H 02/15/22 08:59 Hgb 12.6 gm/dl (11.8-15.2) 02/15/22 08:59 Hct 45.1 % (35.5-45.6) D 02/15/22 08:59 MCV 86 fl (84-94) 02/15/22 08:59 MCH 24 pg (28-32) L 02/15/22 08:59 MCHC 28 % (32-34) L 02/15/22 08:59 RDW 25.3 % (13.2-15.2) H 02/15/22 08:59 Plt Count 142 K/mm3 (140-440) 02/15/22 08:59 Add Manual Diff Complete 02/15/22 05:07 Total Counted 100 02/15/22 05:07 Seg Neuts % (Manual) 85.0 % (40.0-70.0) H 02/15/22 05:07 Band Neutrophils % 3.0 % 02/15/22 05:07 Lymphocytes % (Manual) 9.0 % (13.4-35.0) L 02/15/22 05:07 Reactive Lymphs % (Man) 0 % 02/15/22 05:07 Monocytes % (Manual) 0 % (0.0-7.3) 02/15/22 05:07 Eosinophils % (Manual) 0 % (0.0-4.3) 02/15/22 05:07 Basophils % (Manual) 1.0 % (0.0-1.8) 02/15/22 05:07 Metamyelocytes % 2.0 % 02/15/22 05:07 Myelocytes % 0 % 02/15/22 05:07 Promyelocytes % 0 % 02/15/22 05:07 Blast Cells % 0 % 02/15/22 05:07 Nucleated RBC % Not Reportable 02/15/22 05:07 Seg Neutrophils # Man 26.2 K/mm3 (1.8-7.7) H 02/15/22 05:07 Band Neutrophils # 0.9 K/mm3 02/15/22 05:07 Lymphocytes # (Manual) 2.8 K/mm3 (1.2-5.4) 02/15/22 05:07 Abs React Lymphs (Man) 0.0 K/mm3 02/15/22 05:07 Monocytes # (Manual) 0.0 K/mm3 (0.0-0.8) 02/15/22 05:07 Eosinophils # (Manual) 0.0 K/mm3 (0.0-0.4) 02/15/22 05:07 Basophils # (Manual) 0.3 K/mm3 (0.0-0.1) H 02/15/22 05:07 Metamyelocytes # 0.6 K/mm3 02/15/22 05:07 Myelocytes # 0.0 K/mm3 02/15/22 05:07 Promyelocytes # 0.0 K/mm3 02/15/22 05:07 Blast Cells # 0.0 K/mm3 02/15/22 05:07 WBC Morphology Not Reportable 02/15/22 05:07 Hypersegmented Neuts Not Reportable 02/15/22 05:07 Hyposegmented Neuts Not Reportable 02/15/22 05:07 Hypogranular Neuts Not Reportable 02/15/22 05:07 Smudge Cells Not Reportable 02/15/22 05:07 Toxic Granulation Not Reportable 02/15/22 05:07 Toxic Vacuolation Not Reportable 02/15/22 05:07 Dohle Bodies Not Reportable 02/15/22 05:07 Pelger-Huet Anomaly Not Reportable 02/15/22 05:07 Noa Rods Not Reportable 02/15/22 05:07 Platelet Estimate Consistent w auto 02/15/22 05:07 Clumped Platelets Not Reportable 02/15/22 05:07 Plt Clumps, EDTA Not Reportable 02/15/22 05:07 Large Platelets Not Reportable 02/15/22 05:07 Giant Platelets Not Reportable 02/15/22 05:07 Platelet Satelliting Not Reportable 02/15/22 05:07 Plt Morphology Comment Not Reportable 02/15/22 05:07 RBC Morphology Not Reportable 02/15/22 05:07 Dimorphic RBCs Not Reportable 02/15/22 05:07 Polychromasia Not Reportable 02/15/22 05:07 Hypochromasia 1+ 02/15/22 05:07 Poikilocytosis Not Reportable 02/15/22 05:07 Anisocytosis 2+ 02/15/22 05:07 Microcytosis Not Reportable 02/15/22 05:07 Macrocytosis Not Reportable 02/15/22 05:07 Spherocytes Not Reportable 02/15/22 05:07 Pappenheimer Bodies Not Reportable 02/15/22 05:07 Sickle Cells Not Reportable 02/15/22 05:07 Target Cells Not Reportable 02/15/22 05:07 Tear Drop Cells Not Reportable 02/15/22 05:07 Ovalocytes Not Reportable 02/15/22 05:07 Helmet Cells Not Reportable 02/15/22 05:07 [place] Bodies Not Reportable 02/15/22 05:07 [place] Rings Not Reportable 02/15/22 05:07 Mignon Cells Not Reportable 02/15/22 05:07 Bite Cells Not Reportable 02/15/22 05:07 Crenated Cell Not Reportable 02/15/22 05:07 Elliptocytes Not Reportable 02/15/22 05:07 Acanthocytes (Spur) Not Reportable 02/15/22 05:07 Rouleaux Not Reportable 02/15/22 05:07 Hemoglobin C Crystals Not Reportable 02/15/22 05:07 Schistocytes Not Reportable 02/15/22 05:07 Malaria parasites Not Reportable 02/15/22 05:07 Cuco Bodies Not Reportable 02/15/22 05:07 Hem Pathologist Commnt No 02/15/22 05:07 PT 16.6 Sec. (12.2-14.9) H 02/15/22 08:59 INR 1.20 (0.87-1.13) H 02/15/22 08:59 APTT 31.0 Sec. (24.2-36.6) 02/15/22 08:59 Sodium 144 mmol/L (137-145) 02/16/22 05:38 Potassium 4.4 mmol/L (3.6-5.0) 02/16/22 05:38 Chloride 97.0 mmol/L (98-107) L 02/16/22 05:38 Carbon Dioxide 32 mmol/L (22-30) H 02/16/22 05:38 Anion Gap 19 mmol/L 02/16/22 05:38 BUN 15 mg/dL (9-20) 02/16/22 05:38 Creatinine 0.9 mg/dL (0.8-1.3) 02/16/22 05:38 Estimated GFR > 60 ml/min 02/16/22 05:38 BUN/Creatinine Ratio 17 % 02/16/22 05:38 Glucose 83 mg/dL (75-100) 02/16/22 05:38 Lactic Acid 1.70 mmol/L (0.7-2.0) 02/14/22 09:26 Calcium 8.9 mg/dL (8.4-10.2) 02/16/22 05:38 Magnesium 2.30 mg/dL (1.7-2.3) 02/14/22 09:26 Total Bilirubin 0.60 mg/dL (0.1-1.2) 02/16/22 05:38 AST 11 units/L (5-40) 02/16/22 05:38 ALT 8 units/L (7-56) 02/16/22 05:38 Alkaline Phosphatase 77 units/L (35-129) 02/16/22 05:38 Total Creatine Kinase 45 units/L (55-170) L 02/14/22 09:26 CK-MB (CK-2) 4.0 ng/mL (0.0-4.0) 02/14/22 09:26 CK-MB (CK-2) Rel Index 8.8 (0-4) H 02/14/22 09:26 Troponin T < 0.010 ng/mL (0.00-0.029) 02/14/22 09:26 C-Reactive Protein 3.90 mg/dL (0.00-1.30) H 02/14/22 09:26 NT-Pro-B Natriuret Pep 1314 pg/mL (0-450) H 02/14/22 09:26 Total Protein 6.0 g/dL (6.3-8.2) L 02/16/22 05:38 Albumin 3.5 g/dL (3.9-5) L 02/16/22 05:38 Albumin/Globulin Ratio 1.4 % 02/16/22 05:38 Lipase 8 units/L (13-60) L 02/14/22 09:26 Urine Color Yellow (Yellow) 02/14/22 21:00 Urine Turbidity Clear (Clear) 02/14/22 21:00 Urine pH 8.0 (5.0-7.0) H 02/14/22 21:00 Ur Specific [place] 1.010 (1.003-1.030) 02/14/22 21:00 Urine Protein <15 mg/dl mg/dL (Negative) 02/14/22 21:00 Urine Glucose (UA) Negative mg/dL (Negative) 02/14/22 21:00 Urine Ketones Negative mg/dL (Negative) 02/14/22 21:00 Urine Blood Negative (Negative) 02/14/22 21:00 Urine Nitrite Negative (Negative) 02/14/22 21:00 Urine Bilirubin Negative (Negative) 02/14/22 21:00 Urine Urobilinogen 0.2 mg/dL (<2.0) 02/14/22 21:00 Ur Leukocyte Esterase Negative (Negative) 02/14/22 21:00 Urine WBC (Auto) < 1.0 /HPF (0.0-6.0) 02/14/22 21:00 Urine RBC (Auto) < 1.0 /HPF (0.0-6.0) 02/14/22 21:00 U Epithel Cells (Auto) 1.0 /HPF (0-13.0) 02/14/22 21:00 Urine Mucus Few /HPF 02/14/22 21:00 Urine Opiates Screen Negative 02/14/22 21:00 Urine Methadone Screen Negative 02/14/22 21:00 Ur Barbiturates Screen Negative 02/14/22 21:00 Ur Phencyclidine Scrn Negative 02/14/22 21:00 Ur Amphetamines Screen Negative 02/14/22 21:00 U Benzodiazepines Scrn Negative 02/14/22 21:00 Urine Cocaine Screen Negative 02/14/22 21:00 U Marijuana (THC) Screen Negative 02/14/22 21:00 Drugs of Abuse Note Disclamer 02/14/22 21:00 Active Medications - Current Medications Current Medications: Generic Name Dose Route Start Last Admin Trade Name Freq PRN Reason Stop Dose Admin Acetaminophen 650 mg 02/14/22 20:28 Acetaminophen 325 Mg Tab PO Q4H PRN Pain MILD(1-3)/Fever >100.5/ARENAS Apixaban 10 mg 02/15/22 10:00 02/16/22 10:57 Apixaban 5 Mg Tab PO 02/21/22 22:01 10 mg Q12HR MICHELLE Administration Protocol Apixaban 5 mg 02/22/22 10:00 Apixaban 5 Mg Tab PO Q12HR MICHELLE Protocol Bupropion HCl 150 mg 02/14/22 22:00 02/16/22 10:58 Bupropion Sr 150 Mg Tab PO 150 mg BID MICHELLE Administration Clobetasol Propionate 1 applic 02/14/22 22:00 02/15/22 21:33 Clobetasol 0.05% Cream 15 Gm TP 1 applic BID MICHELLE Administration Famotidine 20 mg 02/14/22 22:00 02/16/22 10:57 Famotidine 20 Mg Tab PO 20 mg BID MICHELLE Administration Furosemide 40 mg 02/15/22 06:00 02/16/22 06:06 Furosemide 40 Mg/4 Ml Inj IV 40 mg 0600,1800 MICHELLE Administration Ampicillin Sodium/Sulbactam Sodium 3 gm in 100 mls @ 100 mls/hr 02/15/22 08:00 02/16/22 10:56 Unasyn/Ns 3 Gm/100 Ml IV 100 mls/hr Q6H MICHELLE Administration Protocol Metoclopramide HCl 10 mg 02/14/22 20:28 Metoclopramide 10 Mg/2 Ml Inj IV Q6H PRN Nausea And Vomiting Morphine Sulfate 2 mg 02/14/22 20:28 Morphine 2 Mg/1 Ml Inj IV Q4H PRN Pain, Moderate (4-6) Nicotine 14 mg 02/15/22 10:00 02/16/22 10:58 Nicotine 14 Mg/24 Hr Patch TD 14 mg QDAY MICHELLE Administration Ondansetron HCl 4 mg 02/14/22 20:28 Ondansetron 4 Mg/2 Ml Inj IV Q8H PRN Nausea And Vomiting Oxycodone/Acetaminophen 1 tab 02/14/22 20:28 Oxycodone /Acetaminophen 5-325mg Tab PO Q6H PRN Pain, Moderate (4-6) Pantoprazole Sodium 20 mg 02/14/22 21:00 02/16/22 10:57 Pantoprazole 20 Mg Tab PO 20 mg QDAY MICHELLE Administration Sodium Chloride 10 ml 02/14/22 22:00 02/16/22 10:58 Sodium Chloride 0.9% 10 Ml Flush Syringe IV 10 ml BID MICHELLE Administration Sodium Chloride 10 ml 02/14/22 20:28 Sodium Chloride 0.9% 10 Ml Flush Syringe IV PRN PRN LINE FLUSH Spironolactone 50 mg 02/14/22 21:00 02/16/22 10:57 Spironolactone 50 Mg Tab PO 50 mg QDAY MICHELLE Administration
[2022-02-16] MEDS: GABAPENTIN 100 MG CAP PO SCH ×2 (17:30→21:41)
[2022-02-16] MEDS: CLOBETASOL 0.05% CREAM 15 GM TP SCH ×2 (17:32→21:42)
[2022-02-17] MEDS: FUROSEMIDE 40 MG/4 ML INJ IV SCH (05:22)
[2022-02-17] MEDS: AMPICILLIN/SULBACTA 3GM/100ML 3 GM/100 ML BAG IV SCH ×2 (05:23→09:03)
[2022-02-17] MEDS: GABAPENTIN 100 MG CAP PO SCH ×2 (05:23→14:20)
[2022-02-17] MEDS: buPROPion SR 150 MG TAB PO SCH (09:04)
[2022-02-17] MEDS: NICOTINE 14 MG/24 HR PATCH TD SCH (09:04)
[2022-02-17] MEDS: SPIRONOLACTONE 50 MG TAB PO SCH (09:04)
[2022-02-17] MEDS: APIXABAN 5 MG TAB PO SCH (09:04)
[2022-02-17] MEDS: PANTOPRAZOLE 20 MG TAB PO SCH (09:05)
[2022-02-17] MEDS: FAMOTIDINE 20 MG TAB PO SCH (09:05)
[2022-02-17] MEDS: CLOBETASOL 0.05% CREAM 15 GM TP SCH (09:06)
--- NOTE | 2022-02-17 11:53 | Discharge Summary ---
Providers - Providers Date of Admission: 02/14/22 20:28 Date of discharge: 02/17/22 Attending physician: BERNARDINO SALEH MD 02/14/22 20:28 Consult to Physician [CONS] Routine Comment: Consulting Provider: GABRIELE STINSON Physician Instructions: Reason For Exam: CHF 02/15/22 13:32 Physical Therapy Evaluation and Treat [CONS] Routine Comment: Reason For Exam: weakness Primary care physician: PHOTO FINISHER Hospitalization Reason for admission: short of breath Condition: Stable Hospital course: History of present illness: 31-year-old morbidly obese male comes in for shortness of breath and redness of both lower extremities. No fever or chills. Patient is on 2 L home oxygen. Patient barely moves from bed to the restroom and back. Mostly bedridden. Severely obese. Patient is admitted by me in the past for CHF. Patient also has obstructive sleep apnea. Hospital Course: 02/15: Continue GDMT for CHF. Patient has a history of BL PE in the past. Restarted home Eliquis. Patient is concerned he cannot care for self, having more difficulty with ambulation. Ordered PT consultation. 02/16: Awaiting PT assessment. Patient appears to be close to baseline. Doppler US of LE demonstrate LLE DVT. Eliquis restarted yesterday for ongoing tx of PE. Plan for d/c in next 24 hrs pending PT eval. 02/17: Weakness resolved. Patient able to ambulate to restroom. Abx stopped, doubt sepsis/celllitis, LE edema chronic from lymphedema. Patient will be dc home on eliquis, gabapentin, lasix. VSS at time of discharge. Advised to follow up OP with primary care doctor and cardiology. Advised to establish with hematology to work up leukocytosis. Assessment and Plan: #Pulmonary embolism - diagnosed prior to admission at [facility] - [place] eliquis resumed #Deep vein thrombosis - diagnosed this admission on lower extremity ultrasound - home eliquis resumed #Sepsis ruled out #SIRS Current Visit: Yes Status: Acute Plan to address problem: Patient has a high white count of 34,000 Possible source of infection lower extremity infection of soft tissues Unlikely infection SIRS from DVT, PE Will likely need further monitoring and work up of leukocytosis by hematology OP. #Cellulitis of both lower extremities ruled out #Chronic Lymphedema Current Visit: Yes Status: Acute Plan to address problem: dc Unasyn and vancomycin Will continue thorugh tomorrow and likely d/c. #Acute exacerbation of CHF (congestive heart failure) ruled out #[place] HFpEF Current Visit: Yes Status: Acute Qualifiers: Heart failure type: combined systolic and diastolic Qualified Code(s): I50.43 - Acute on chronic combined systolic (congestive) and diastolic (congestive) heart failure Plan to address problem: IV Lasix and Aldactone Echo 02/09/2022-the study was technically difficult in quality. LVEF is 49%. Technically limited study. Right ventricle not well visualized but does appear dilated with decreased function visually. By measurement however RV systolic function is normal. Trace tricuspid regurgitation. Mildly elevated RV systolic pressure Compared to 10/06/2021 LV function slightly decreased. # Hypertension Current Visit: Yes Status: Chronic Qualifiers: Hypertension type: primary hypertension Qualified Code(s): I10 - Essential (primary) hypertension Plan to address problem: Secondary to obesity Continue antihypertensives # T2DM (type 2 diabetes mellitus) Current Visit: Yes Status: Chronic Qualifiers: Diabetes mellitus intermediate card tender insulin use: unspecified [place] insulin use status Plan to address problem: Coverage for now #Morbid obesity with BMI of 60.0-69.9, adult Current Visit: Yes Status: Chronic Plan to address problem: Patient definitely needs bariatric surgery Primary team to baby counselor him and refer to Dr. Ramirez----bariatric surgeon who is in-house #DVT prophylaxis Current Visit: Yes Status: Acute Plan to address problem: On heparin and GI prophylaxis #Advance care planning Current Visit: Yes Status: Acute Plan to address problem: Disease education conducted, care plan discussed, diagnosis discussed, and prognosis discussed. Patient acknowledged understanding with care plan. +30 minutes. Disposition: HOME / SELF CARE / HOMELESS Final Discharge Diagnosis (Prints w/discharge instructions): Lower extremity DVT, SIRS POA, Chronic HFpEF, Severe morbid obesity, Chronic lymphedema Time spent for discharge: 35 Core Measure Documentation - Palliative Care Palliative Care/ Comfort Measures: Not Applicable - Core Measures Any of the following diagnoses?: heart failure - Heart Failure Discharge Requirements DAVE/ARB for LVSD if EF <40%: Not Applicable Beta matt at discharge: No Reason for no beta matt on DC: Medical contraindication Exam - Constitutional Vitals: Temp Pulse Resp BP Pulse Ox 98.1 F 78 18 116/57 97 08/14/22 08:23 02/17/22 08:23 02/17/22 08:23 02/17/22 08:23 02/17/22 09:38 Plan Follow up with: PRIMARY CAREMD [Primary Care Provider] - 3-5 Days
[2022-02-17 11:58] VITALS: BP 108/47
[2022-02-17 12:41] LABS: BUN/Creatinine Ratio 13; Blood Urea Nitrogen 13 mg/dL (9-20); Calcium 9.2 mg/dL (8.4-10.2); Hemolysis Index 2
[2022-02-17 12:51] LABS: Mean Corpuscular HGB Conc 30 % (32-34); Mean Corpuscular Volume 80 fl (84-94); Platelet Count 221 K/mm3 (140-440); Red Blood Count 4.53 M/mm3 (3.65-5.03)
[2022-02-17 12:52] LABS: Hematocrit 36.2 % (35.5-45.6); Hemoglobin 10.9 gm/dl (11.8-15.2)
--- NOTE | 2022-02-17 14:37 | Electrocardiograph Report ---
[facility] Test Date: 2022-02-15 Test Time: 09:20:21 Pat Name: JANES BENNETT Department: Room: A459 1 Gender: M Curatorial Specialist: VALENTINE : 1990 Requested By: TRISTEN TINEO Order Number: [id number] Reading MD: Litzy Hartman Measurements Intervals Morris Rate: 62 P: -2 CO: 176 QRS: 239 QRSD: 96 T: 10 QT: 437 QTc: 444 Interpretive Statements Sinus rhythm Markedly posterior QRS axis Probable right ventricular hypertrophy Compared to ECG 09/14/2021 10:08:21 Posterior QRS axis now present Electronically Signed On 02-17-2022 14:37:02 EDT by Litzy Hartman
[2022-02-17 19:09] LABS: Band Neutrophils # (Manual) 1.3 K/mm3; Basophils % (Manual) 0 % (0.0-1.8); Myelocytes # (Manual) 1.3 K/mm3; Platelet Estimate Appears Decreased; Total Cells Counted 100
[2022-02-17 19:10] LABS: RBC Morphology Normal
[2022-02-22] MEDS ORDERED: APIXABAN 5 MG TAB PO SCH (10:00)
== END 2022-02-17 16:22 | disposition home or self-care (01) | DRG 299 ==
LOC: ED 08:43 → 4A 20:28
PROVIDERS: ADMIT Internal Medicine; ATTEND Internal Medicine
DX: I82.432 Acute embolism and thrombosis of left popliteal vein (principal); J96.01 Acute respiratory failure with hypoxia; R65.10 Systemic inflammatory response syndrome (SIRS) of non-infectious origin without acute organ dysfunction; E66.2 Morbid (severe) obesity with alveolar hypoventilation; Z68.44 Body mass index [BMI] 60.0-69.9, adult; I50.32 Chronic diastolic (congestive) heart failure; I11.0 Hypertensive heart disease with heart failure; J45.909 Unspecified asthma, uncomplicated; F32.A Depression, unspecified; Z87.891 Personal history of nicotine dependence; E11.9 Type 2 diabetes mellitus without complications; Z82.49 Family history of ischemic heart disease and other diseases of the circulatory system; Z90.49 Acquired absence of other specified parts of digestive tract; Z91.040 Latex allergy status; Z88.8 Allergy status to other drugs, medicaments and biological substances; Z86.711 Personal history of pulmonary embolism
CPT/HCPCS: 36415; 71045; 80048; 80053; 80307; 81001; 82140; 82550; 82553; 82565; 83690; 83735; 83880; 84484; 85007; 85025; 85027; 85610; 85730; 86140; 93005; 93970; 94644; 94760; 99406; G0378; J0295; J1644; J1940; J2930

== ENCOUNTER 2022-04-02 09:08 | Inpatient (IN) | payer MEDICAID ==
[2022-04-02 10:40] LABS: Alanine Aminotransferase 9 units/L (7-56); Albumin 3.9 g/dL (3.9-5); BUN/Creatinine Ratio 13; Blood Urea Nitrogen 19 mg/dL (9-20); Hemolysis Index 0
[2022-04-02 10:47] LABS: INR 1.22 (0.87-1.13)
[2022-04-02 10:48] LABS: Partial Thromboplastin Time 29.5 Sec. (24.2-36.6)
[2022-04-02 10:49] LABS: Mean Corpuscular HGB Conc 30 % (32-34); Mean Corpuscular Volume 84 fl (84-94); Platelet Count 213 K/mm3 (140-440)
[2022-04-02 10:53] LABS: Hematocrit 39.7 % (35.5-45.6); Hemoglobin 11.9 gm/dl (11.8-15.2); Red Cell Distribution Width 22.5 % (13.2-15.2)
--- NOTE | 2022-04-02 11:14 | XRay Report ---
CHEST 1 VIEW INDICATION: fever, sob. COMPARISON: 02/14/2022 FINDINGS: SUPPORT DEVICES: None. HEART: Within normal limits. LUNGS/PLEURA: No acute air space or interstitial disease. ADDITIONAL FINDINGS: None. IMPRESSION: 1. No acute findings. Signer Name: London Domínguez MD Signed: 04/02/2022 11:10 AM Workstation Name: [id number]
[2022-04-02] MEDS ORDERED: FUROSEMIDE 40 MG/4 ML INJ IV ONE (11:20)
[2022-04-02] MEDS ORDERED: ACETAMINOPHEN 500 MG TAB PO ONE (11:22)
[2022-04-02 11:33] LABS: Band Neutrophils # (Manual) 2.1 K/mm3; Basophils % (Manual) 0 % (0.0-1.8); Eosinophils % (Manual) 0 % (0.0-4.3); Monocytes % (Manual) 1.5 % (0.0-7.3); Nucleated Red Blood Cells 1.5 % (0.0-0.9); Total Cells Counted 200
[2022-04-02 11:34] LABS: Anisocytosis 1+; Platelet Estimate Consistent w Auto
[2022-04-02] MEDS ORDERED: PIPERACIL/TAZOBACTA 4.5/NS 100 4.5 GM/100 ML VIAL IV ONE (11:42)
[2022-04-02] MEDS ORDERED: SODIUM CHLORIDE 0.9% 1000 ML 1,000 ML IV SCH (11:43)
--- NOTE | 2022-04-02 11:47 | Emergency Department Report ---
HPI - General Chief Complaint: Weakness PUI?: No Time Seen by Provider: 04/02/22 11:12 - HPI HPI: 31-year-old morbidly obese male with multiple medical comorbidities and calling DVT, bedbound state which is chronic, chronic hypoxic respiratory failure on 2 L of oxygen via nasal cannula at home at baseline, congestive heart failure, presents for evaluation of body aches fevers chills and dry cough as well as headache for the past 4 days. He denies any sick contacts or travel history. Patient states he last took a COVID test several months ago and states "it was normal." He denies any pain or swelling to his legs although he does have chronic lymphedema. He denies any redness to his legs. Denies any abdominal pain nausea vomiting UTI symptoms or back pain. He states he last took 1 g of Tylenol at approximately 5 AM this morning due to persistent fevers throughout the night. Pain currently diffuse and is 7 out of 10. ED Past Medical Hx - Past Medical History Previous Medical History?: Yes Hx Hypertension: Yes Hx Congestive Heart Failure: Yes Hx Diabetes: Yes (possible borderline DM) Hx Deep Vein Thrombosis: No Hx Psychiatric Treatment: Yes (Depression) Hx Asthma: Yes Hx COPD: No Additional medical history: morbidly obese, HOME OXYGEN @ 2LPM NASAL CANULLA, lymphedema - Surgical History Hx Pacemaker: No Hx Internal Defibrillator: No Hx Appendectomy: No - Social History Smoking Status: Current Every Day Smoker Substance Use Type: None - Medications Home Medications: Home Medications Medication Instructions Recorded Confirmed Last Taken Type Nicotine [Habitrol] 14 mg TD QDAY #20 patch 01/31/20 02/15/22 02/13/22 Rx Apixaban [Eliquis] 5 mg PO BID 02/15/22 02/15/22 Unknown History Furosemide [Lasix TAB] 80 mg PO BID 02/15/22 02/15/22 02/14/22 History Potassium Chloride [K-Dur] 20 meq PO QDAY 02/15/22 02/15/22 Unknown History traMADoL [Ultram] 50 mg PO BID PRN 02/15/22 02/15/22 Unknown History Apixaban [Eliquis] 5 mg PO Q12HR 30 Days #60 tablet 02/17/22 Unknown Rx Apixaban [Eliquis] 10 mg PO Q12HR 4 Days #8 tablet 02/17/22 Unknown Rx Furosemide [Lasix TAB] 80 mg PO DAILY 30 Days #30 tab 02/17/22 Unknown Rx Gabapentin 100 mg PO Q8HR 30 Days #90 capsule 02/17/22 Unknown Rx Spironolactone [Aldactone] 50 mg PO QDAY 30 Days #30 tablet 02/17/22 Unknown Rx ED Review of Systems ROS: Stated complaint: GENERAL ILLNESS/DIFFICULTUY BREATHING Other details as noted in HPI Remainder of ROS neg. Comment: All other systems reviewed and negative Physical Exam - Physical Exam Vital Signs: Vital Signs 04/02/22 04/02/22 04/02/22 09:13 09:18 10:35 Temperature 100 F H Pulse Rate 125 H Respiratory 22 18 Rate Blood Pressure 124/63 [Left] O2 Sat by Pulse 89 100 98 Oximetry 04/02/22 04/02/22 11:36 11:41 Temperature 98.9 F Pulse Rate 114 H Respiratory 18 Rate Blood Pressure 107/49 [Left] O2 Sat by Pulse 99 Oximetry General: Gen: pt is well appearing, no acute distress, wearing nasal cannula, HEENT: Normocephalic atraumatic pupils equally round and reactive to light extraocular muscles intact sclera anicteric Neck: Full range of motion, no midline spinal tenderness palpation, no JVD, no carotid bruits, no nuchal rigidity CVS: S1-S2 regular rate and rhythm with no gallops rubs or murmurs, chest wall nontender Pulmonary: Clear to auscultation bilaterally, no wheezes rales or rhonchi Abdomen: Soft nondistended nontender no guarding or rebound tenderness, no palpable deformities or step-offs, normal active bowel sounds, no hepatosplenomegaly, no pulsatile masses : Deferred Extremities: No cyanosis no clubbing no edema, intact distal peripheral pulses, chronic lymphedema bilateral EXTR lower extremities, Integumentary: Skin normal, no petechia no purpura no abscess no lacerations no evidence of trauma no evidence of infection, Neuro: Patient is awake alert and oriented to person place time situation, mentating well, cranial nerves II through XII intact, no focal neurodeficits, sensation grossly intact, unable to test gait at this time Psych: Calm cooperative, mood affect normal ED Course Vital Signs 04/02/22 04/02/22 04/02/22 09:13 09:18 10:35 Temperature 100 F H Pulse Rate 125 H Respiratory 22 18 Rate Blood Pressure 124/63 [Left] O2 Sat by Pulse 89 100 98 Oximetry 04/02/22 04/02/22 11:36 11:41 Temperature 98.9 F Pulse Rate 114 H Respiratory 18 Rate Blood Pressure 107/49 [Left] O2 Sat by Pulse 99 Oximetry - Consultations Consultation #1: 04/02/22 14:42 Case was reviewed via telephone as the 12:56 PM with lapper oncologist, . Per his verbal report, he will evaluate the patient in consultation during his inpatient stay. He states that he is in agreement that the patient be admitted to the hospitalist service. With respect to the patient's significant leukocytosis, he states that the patient has no evidence of acute leukemia. Patient will be followed up for further management. ED Medical Decision Making - Lab Data Result diagrams: 04/02/22 09:35 04/02/22 09:35 - EKG Data -: EKG Interpreted by Me EKG shows normal: sinus rhythm Rate: tachycardia - EKG Data When compared to previous EKG there are: no significant change Interpretation: no acute changes 04/02/22 11:45 EKG interpreted by me: Ventricular at 116 bpm. P waves are present and proceed every QRS complex. Intervals normal. No ST segment depressions or elevations. No T wave flattenin g or inversions. No ectopy. No arrhythmia. Normal axis. Sinus tachycardia - Radiology Data Radiology results: report reviewed - Medical Decision Making 31-year-old morbidly obese male with multiple medical comorbidities presents w ith fever cough and body aches. Patient has oral temp of 100 Fahrenheit and a heart rate of 116. Remainder vitals normal. He is mildly ill-appearing on examination but is protecting his airway and his mentation is normal. He significant leukocytosis with bandemia, lactic acidosis on his serum blood work. Urinalysis is negative. COVID test negative. Chest x-ray demonstrates no acute findings. Per discussion with the metallurgical lab technician, weight limit on the CT machine is 450 pounds. Patient's documented weight is above the maximum allowable weight that is permitted to be performed on the CT scan machine. Therefore, CT scan of patient's chest cannot be performed. Patient repeatedly denies any pain or swelling beyond his chronic swelling to his lower extremities, and he denies any abdominal pain. He has no signs or symptoms of an infectious cause secondary to an intra-abdominal process or soft tissue process. Etiology of the patient's fever and leukocytosis are unclear. He was given acetaminophen, normal saline, and broad-spectrum antibiotics via Zosyn. Case was reviewed via consultation with on-call lapper oncologist, Dr. Patel. He has verbally agreed to evaluate the patient during his inpatient stay at [facility]. The patient has been accepted by Dr. Gloria for admission to the hospitalist service for further management. Critical Care Time: Yes Critical care time in (mins) excluding proc time.: 30 Critical care attestation.: If time is entered above; I have spent that time in minutes in the direct care of this critically ill patient, excluding procedure time. ED Disposition Clinical Impression: SIRS (systemic inflammatory response syndrome) Fever Qualifiers: Fever type: unspecified Qualified Code(s): R50.9 - Fever, unspecified Disposition: 09 ADMITTED INPATIENT Is pt being admited?: Yes Does the pt Need Aspirin: No Condition: Stable Referrals: PRIMARY CARE, [Primary Care Provider] - 3-5 Days
[2022-04-02 12:32] LABS: Bilirubin,Urine NEG (Negative); Blood,Urine NEG (Negative); Color,Urine Yellow (Yellow); Protein,Urine <15 mg/dL mg/dL (Negative)
[2022-04-02 12:35] LABS: Bacteria,Urine 1+ /HPF (Negative); Granular Casts,Urine 7 /LPF; Hyaline Casts,Urine 1 /LPF; Mucus,Urine FEW /HPF; RBC,Urine < 1.0 /HPF (0.0-6.0); Urobilinogen,Urine < 2 mg/dL (<2.0); WBC,Urine < 1.0 /HPF (0.0-6.0)
[2022-04-02 12:48] LABS: ABG HCO3 27.2 mmol/L (20.0-26.0); ABG Oxygen Saturation 96.9 % (95.0-99.0); ABG PCO2 40.4 mm Hg; ABG PH 7.447 pH Units (7.350-7.450); ABG PO2 75.6 mm Hg (80.0-90.0)
[2022-04-02 12:49] LABS: ABG Methemoglobin 0.5 % (0.0-1.5)
--- NOTE | 2022-04-02 13:08 | History and Physical Report ---
History of Present Illness Chief complaint: I feel bad History of present illness: 31 YO Male with Super Morbid Obesity, Diastolic CHF, Chronic respiratory Failure on 2L Home Oxygen, Obesity Hypoventilation Syndrome, DM, Asthma, Nicotine Dependence, Lymphedema, GERD, DVT on therapeutic anticoagulation with Eliquis presents to ED for evaluation. Pt reports "I do not feel good". Patient states he has experienced body aches, fever, chills, weakness, pain to his lower abdomen over the past 3 days with persistently worsening symptoms over the same timeframe. Patient acknowledges fever to 101.2 F, dry cough. EMS was notified and upon arrival the patient was found to be in distress. Patient transported to [facility] for further care and evaluation of the aforementioned symptoms. Patient seen and evaluated in the emergency department. All lab and imaging studies reviewed. Patient found to have a pulse oximetry of 88% on room air which is consistent with acute hypoxemic respiratory failure. Patient also found to have sepsis suspected secondary to coronavirus infection. Patient admitted to medical floor and initiated on coronavirus protocol as well as sepsis protocol due to increased risk of worsening symptoms and for medical stabilization. Patient found to have significant leukocytosis. Hematology service consulted in ED prior to my evaluation. Patient denies chest pain, palpitations, , skin rash, or recent ill contacts, or known exposure to COVID-19. Prior admission on 02/14/2022 reviewed. All medication listed at time of admission has been reconciled. Advanced care planning conducted in ED Past History Past Medical History: DVT, GERD, heart failure, other (See HPI) Past Surgical History: No surgical history, Other (Reviewed) Social history: single, smoking. denies: alcohol abuse, prescription drug abuse Family history: hypertension Medications and Allergies Allergies Allergy/AdvReac Type Severity Reaction Status Date / Time clindamycin Allergy Stearns/Rash Verified 02/15/22 10:14 doxycycline Allergy Stearns/Rash Verified 02/15/22 10:14 latex Allergy Stearns/Rash Verified 02/15/22 10:14 metformin Allergy Stearns/Rash Verified 02/15/22 10:14 sulfamethoxazole Allergy Swelling Verified 02/15/22 10:14 [From Bactrim] trimethoprim [From Bactrim] Allergy Swelling Verified 02/15/22 10:14 vancomycin Allergy Hives Verified 02/15/22 10:14 Home Medications Medication Instructions Recorded Confirmed Last Taken Type Nicotine [Habitrol] 14 mg TD QDAY #20 patch 01/31/20 02/15/22 02/13/22 Rx Apixaban [Eliquis] 5 mg PO BID 02/15/22 02/15/22 Unknown History Furosemide [Lasix TAB] 80 mg PO BID 02/15/22 02/15/22 02/14/22 History Potassium Chloride [K-Dur] 20 meq PO QDAY 02/15/22 02/15/22 Unknown History traMADoL [Ultram] 50 mg PO BID PRN 02/15/22 02/15/22 Unknown History Apixaban [Eliquis] 5 mg PO Q12HR 30 Days #60 tablet 02/17/22 Unknown Rx Apixaban [Eliquis] 10 mg PO Q12HR 4 Days #8 tablet 02/17/22 Unknown Rx Furosemide [Lasix TAB] 80 mg PO DAILY 30 Days #30 tab 02/17/22 Unknown Rx Gabapentin 100 mg PO Q8HR 30 Days #90 capsule 02/17/22 Unknown Rx Spironolactone [Aldactone] 50 mg PO QDAY 30 Days #30 tablet 02/17/22 Unknown Rx Active Meds: Active Medications Sodium Chloride (Nacl 0.9% 1000 Ml) 1,000 mls @ 999 mls/hr IV BOLUS MICHELLE Stop: 04/02/22 23:00 Last Admin: 04/02/22 12:10 Dose: 999 mls/hr Review of Systems Constitutional: fever, weakness, malaise Ears, nose, mouth and throat: no ear pain, no ear discharge, no nasal congestion Cardiovascular: shortness of breath, no chest pain, no orthopnea, no palpita tions Respiratory: cough, shortness of breath, no excessive sputum, no hemoptysis Gastrointestinal: no abdominal pain, no nausea, no vomiting, no diarrhea, no constipation Genitourinary Male: no hematuria, no flank pain, no discharge, no urinary frequency, no urinary hesitancy Rectal: no pain, no incontinence, no bleeding Musculoskeletal: no neck stiffness, no neck pain, no shooting arm pain, no arm numbness/tingling Integumentary: no rash, no pruritis, no redness, no sores, no wounds Neurological: no head injury, no paralysis, no parathesias, no tingling, no syncope Psychiatric: no anxiety, no insomnia, no change in appetite Endocrine: no heat intolerance, no polyphagia, no polydipsia, no polyuria, no nocturia Hematologic/Lymphatic: no easy bruising Allergic/Immunologic: no urticaria, no allergic rhinitis, no wheezing Exam - Constitutional Vitals: Temp Pulse Resp BP Pulse Ox 98.9 F 112 H 26 H 111/48 94 04/02/22 11:41 04/02/22 12:00 04/02/22 12:00 04/02/22 12:14 04/02/22 12:00 General appearance: Present: mild distress, obese - EENT Eyes: Present: PERRL ENT: hearing intact, clear oral mucosa - Neck Neck: Present: supple, normal ROM - Respiratory Respiratory effort: normal Respiratory: bilateral: CTA - Cardiovascular Heart Sounds: Present: S1 & S2. Absent: rub, click - Extremities Extremities: pulses symmetrical, No edema Extremity abnormal: edema Peripheral Pulses: abnormal (Capillary refill greater than 3.5 seconds) - Abdominal General gastrointestinal: Present: soft, non-tender, non-distended, normal bowel sounds Male genitourinary: Present: normal - Integumentary Integumentary: Present: clear, warm, dry - Musculoskeletal Musculoskeletal: generalized weakness - Psychiatric Psychiatric: appropriate mood/affect, intact judgment & insight - Neurologic Neurologic: CNII-XII intact, moves all extremities HEART Score - HEART Score Troponin: Troponin T < 0.010 ng/mL (0.00-0.029) 04/02/22 09:35 Results - Labs CBC & Chem 7: 04/02/22 09:35 04/02/22 13:35 Labs: Abnormal lab results 04/02/22 04/02/22 04/02/22 Range/Units 09:35 09:35 09:35 WBC 69.0 H* (4.5-11.0) K/mm3 MCH 25 L (28-32) pg MCHC 30 L (32-34) % RDW 22.5 H (13.2-15.2) % Seg Neuts % (Manual) 91.5 H (40.0-70.0) % Lymphocytes % (Manual) 2.5 L (13.4-35.0) % Nucleated RBC % 1.5 H (0.0-0.9) % Seg Neutrophils # Man 63.1 H (1.8-7.7) K/mm3 Monocytes # (Manual) 1.0 H (0.0-0.8) K/mm3 PT 17.2 H (12.2-14.9) Sec. INR 1.22 H (0.87-1.13) ABG pO2 (80.0-90.0) mm Hg ABG HCO3 (20.0-26.0) mmol/L ABG Hemoglobin (14.0-18.0) gm/dl Oxyhemoglobin (95.0-99.0) % Chloride 93.9 L (98-107) mmol/L Creatinine 1.5 H (0.8-1.3) mg/dL Glucose 138 H (75-100) mg/dL Lactic Acid (0.7-2.0) mmol/L NT-Pro-B Natriuret Pep 1445 H (0-450) pg/mL Total Protein 5.7 L (6.3-8.2) g/dL 04/02/22 04/02/22 04/02/22 Range/Units 09:35 10:46 Unknown WBC (4.5-11.0) K/mm3 MCH (28-32) pg MCHC (32-34) % RDW (13.2-15.2) % Seg Neuts % (Manual) (40.0-70.0) % Lymphocytes % (Manual) (13.4-35.0) % Nucleated RBC % (0.0-0.9) % Seg Neutrophils # Man (1.8-7.7) K/mm3 Monocytes # (Manual) (0.0-0.8) K/mm3 PT (12.2-14.9) Sec. INR (0.87-1.13) ABG pO2 75.6 L (80.0-90.0) mm Hg ABG HCO3 27.2 H (20.0-26.0) mmol/L ABG Hemoglobin 11.5 L (14.0-18.0) gm/dl Oxyhemoglobin 93.0 L (95.0-99.0) % Chloride (98-107) mmol/L Creatinine (0.8-1.3) mg/dL Glucose (75-100) mg/dL Lactic Acid 2.70 H* 2.50 H* (0.7-2.0) mmol/L NT-Pro-B Natriuret Pep (0-450) pg/mL Total Protein (6.3-8.2) g/dL Assessment and Plan - Patient Problems (1) Sepsis Current Visit: Yes Status: Acute Plan to address problem: Sepsis protocol: Chest x-ray, CBC, CMP, supplemental oxygen, pulse oximetry, IV antibiotic therapy, monitor fluid balance, serial lactic acid level, maintain mean arterial pressure greater than equal 65, blood culture. Coronavirus protocol. (2) Suspected 2019 novel coronavirus infection Current Visit: Yes Status: Acute Plan to address problem: ) Protocol: Continue medical management. (3) Obesity hypoventilation syndrome Current Visit: Yes Status: Acute Plan to address problem: Balanced diet, increase physical activity discharge, outpatient pulmonary fo llow-up for sleep study. (4) CHF (congestive heart failure) Current Visit: No Status: Chronic Qualifiers: Heart failure chronicity: acute Plan to address problem: Strict I/O, monitoring output every shift, daily weight, afterload reduction, diuretic therapy with Lasix, blood pressure control, supplemental oxygen, pulse oximetry. (5) GERD (gastroesophageal reflux disease) Current Visit: No Status: Chronic Qualifiers: Esophagitis presence: without esophagitis Qualified Code(s): K21.9 - Gastro-esophageal reflux disease without esophagitis Plan to address problem: PPI therapy, supportive care (6) Lymphedema Current Visit: No Status: Chronic Plan to address problem: Chronic, supportive care. (7) T2DM (type 2 diabetes mellitus) Current Visit: No Status: Chronic Qualifiers: Diabetes mellitus chcf insulin use: unspecified chcf insulin use status Plan to address problem: Consistent carbohydrate diet, Accu-Chek, insulin protocol, hypoglycemia protocol as clinically indicated. (8) Leukocytosis Current Visit: Yes Status: Acute Plan to address problem: Hematology service on consulted. (9) Acute and chronic respiratory failure Current Visit: Yes Status: Acute Qualifiers: Respiratory failure complication: hypoxia Qualified Code(s): J96.21 - Acute and chronic respiratory failure with hypoxia Plan to address problem: Supplemental oxygen, pulse oximetry, nebulizer therapy, chest x-ray, noninvasive positive pressure ventilation as clinically indicated. (10) DVT prophylaxis Current Visit: No Status: Acute Plan to address problem: SCD to bilateral lower extremities while in bed, continue therapeutic anticoagulation (11) Advance care planning Current Visit: No Status: Acute Plan to address problem: Disease education conducted, care plan discussed, diagnoses discussed, prognosis discussed, patient knowledges understanding and agreement care plan, +30 minutes. (12) Preventative health care Current Visit: Yes Status: Acute Plan to address problem: Patient counseled guarding balanced diet, weight reduction, outpatient follow-up with pulmonary for sleep study. Outpatient bariatric surgery follow-up. +30 minutes.
[2022-04-02] MEDS ORDERED: SODIUM CHLORIDE 0.9% 1000 ML 1,000 ML IV ONE (14:17)
[2022-04-02] MEDS ORDERED: ACETAMINOPHEN 325 MG TAB PO PRN ×2 (14:33→15:00)
[2022-04-02] MEDS ORDERED: ONDANSETRON 4 MG/2 ML INJ IV PRN (15:00)
[2022-04-02] MEDS ORDERED: HYDROmorphone 0.5 MG/0.5 ML INJ IV PRN ×2 (15:00)
[2022-04-02] MEDS ORDERED: oxyCODONE /ACETAMINOPHEN 5-325MG TAB PO PRN (15:00)
[2022-04-02 15:10] LABS: C-Reactive Protein 14.4 mg/dL (0.00-1.30)
--- NOTE | 2022-04-02 15:12 | Hem/Onc Consultation ---
History of Present Illness - Reason for Consult Consult date: 04/02/22 Leukocytosis - History of Present Illness Heme Consult Note Seen via [employer] CPT 90153 Dx Leukocytosis This is a 31 yo morbidly obese male who presented to [facility] ED with complaints of fever, weakness, and abdominal pain. Past medical history of diastolic CHF, chronic respiratory failure on 2L home oxygen, morbid obesity, hypoventilation syndrome, DM, asthma, nicotine dependence, lymphedema, and GERD. Pt reports "it hurts a little bit down there and my doctor sent me and to have fluid drained". Patient states he has experienced pain to his lower abdomen over the past 3 days with persistently worsening symptoms over the same timeframe. Patient reports fever to 103.2 F, abdominal redness, tenderness, and swelling. Hematology was consulted for evaluation of leukocytosis. Patient examined at bedside, in ER, in no acute distress. Morbidly obese, 460lbs. Reports elevated WBC in the past, followed by PCP but denies WBC being this elevated in the past. Patient found to have panniculitis, systemic plantar response syndrome, as well as lymphedema. ASSESSMENT: Leukocytosis Infection +/- myeloproliferative disorder Not acute leukemia --> 92% neutrophils, 1.5% metas, CML is possible PLAN: Labs to include flow cytometry, BCR-ABL, uric acid Will need CT chest/abd/pel --evaluate for splenomegaly If unable to complete CT's due to weight (221.7kg) recommend transfer for chest/abd/pel CT Case d/w Dr. Josue Patel. Laboratory Last Values WBC 69.0 K/mm3 (4.5-11.0) H* 04/02/22 09:35 Hgb 11.9 gm/dl (11.8-15.2) 04/02/22 09:35 Hct 39.7 % (35.5-45.6) 04/02/22 09:35 MCV 84 fl (84-94) 04/02/22 09:35 Plt Count 213 K/mm3 (140-440) 04/02/22 09:35 Seg Neuts % (Manual) 91.5 % (40.0-70.0) H 04/02/22 09:35 Lymphocytes % (Manual) 2.5 % (13.4-35.0) L 04/02/22 09:35 Metamyelocytes % 1.5 % 04/02/22 09:35 Nucleated RBC % 1.5 % (0.0-0.9) H 04/02/22 09:35 Seg Neutrophils # Man 63.1 K/mm3 (1.8-7.7) H 04/02/22 09:35 Monocytes # (Manual) 1.0 K/mm3 (0.0-0.8) H 04/02/22 09:35 INR 1.22 (0.87-1.13) H 04/02/22 09:35 APTT 29.5 Sec. (24.2-36.6) 04/02/22 09:35 D-Dimer 271.75 ng/mlDDU (0-234) H 04/02/22 13:35 Creatinine 1.5 mg/dL (0.8-1.3) H 04/02/22 09:35 Lactic Acid 2.50 mmol/L (0.7-2.0) H* 04/02/22 10:46 AST 11 units/L (5-40) 04/02/22 09:35 ALT 9 units/L (7-56) 04/02/22 09:35 Alkaline Phosphatase 109 units/L (35-129) 04/02/22 09:35 NT-Pro-B Natriuret Pep 1445 pg/mL (0-450) H 04/02/22 09:35 SARS-CoV-2 (PCR) Negative (Negative) 04/02/22 12:14 Medications and Allergies Allergies Allergy/AdvReac Type Severity Reaction Status Date / Time clindamycin Allergy Stearns/Rash Verified 02/15/22 10:14 doxycycline Allergy Stearns/Rash Verified 02/15/22 10:14 latex Allergy Stearns/Rash Verified 02/15/22 10:14 metformin Allergy Stearns/Rash Verified 02/15/22 10:14 sulfamethoxazole Allergy Swelling Verified 02/15/22 10:14 [From Bactrim] trimethoprim [From Bactrim] Allergy Swelling Verified 02/15/22 10:14 vancomycin Allergy Hives Verified 02/15/22 10:14 Home Medications Medication Instructions Recorded Confirmed Last Taken Type Nicotine [Habitrol] 14 mg TD QDAY #20 patch 01/31/20 02/15/22 02/13/22 Rx Apixaban [Eliquis] 5 mg PO BID 02/15/22 02/15/22 Unknown History Furosemide [Lasix TAB] 80 mg PO BID 02/15/22 02/15/22 02/14/22 History Potassium Chloride [K-Dur] 20 meq PO QDAY 02/15/22 02/15/22 Unknown History traMADoL [Ultram] 50 mg PO BID PRN 02/15/22 02/15/22 Unknown History Apixaban [Eliquis] 5 mg PO Q12HR 30 Days #60 tablet 02/17/22 Unknown Rx Apixaban [Eliquis] 10 mg PO Q12HR 4 Days #8 tablet 02/17/22 Unknown Rx Furosemide [Lasix TAB] 80 mg PO DAILY 30 Days #30 tab 02/17/22 Unknown Rx Gabapentin 100 mg PO Q8HR 30 Days #90 capsule 02/17/22 Unknown Rx Spironolactone [Aldactone] 50 mg PO QDAY 30 Days #30 tablet 02/17/22 Unknown Rx Active Meds: Active Medications Acetaminophen (Acetaminophen 325 Mg Tab) 650 mg PO Q4H PRN PRN Reason: Pain MILD(1-3)/Fever >100.5/ARENAS Albuterol (Albuterol 2.5 Mg/3 Ml Nebu) 2.5 mg IH Q4HRT PRN PRN Reason: Shortness Of Breath Hydromorphone HCl (Hydromorphone 0.5 Mg/0.5 Ml Inj) 0.25 mg IV Q4H PRN PRN Reason: Pain, Moderate (4-6) Hydromorphone HCl (Hydromorphone 0.5 Mg/0.5 Ml Inj) 0.5 mg IV Q13H PRN PRN Reason: Pain , Severe (7-10) Sodium Chloride (Nacl 0.9% 1000 Ml) 1,000 mls @ 999 mls/hr IV BOLUS MICHELLE Stop: 04/02/22 23:00 Last Admin: 04/02/22 12:10 Dose: 999 mls/hr Sodium Chloride (Nacl 0.9% 1000 Ml) 1,000 mls @ 999 mls/hr IV BOLUS ONE Stop: 04/02/22 15:17 Last Admin: 04/02/22 14:44 Dose: 999 mls/hr Ondansetron HCl (Ondansetron 4 Mg/2 Ml Inj) 4 mg IV Q8H PRN PRN Reason: Nausea And Vomiting Oxycodone/Acetaminophen (Oxycodone /Acetaminophen 5-325mg Tab) 1 tab PO Q6H PRN PRN Reason: Pain, Moderate (4-6) Sodium Chloride (Sodium Chloride 0.9% 10 Ml Flush Syringe) 10 ml IV BID MICHELLE Sodium Chloride (Sodium Chloride 0.9% 10 Ml Flush Syringe) 10 ml IV PRN PRN PRN Reason: LINE FLUSH Exam - Constitutional Vitals: Last Vital Signs Temp 98.9 F 04/02/22 11:41 Pulse 101 H 04/02/22 14:00 Resp 22 04/02/22 14:00 BP 125/47 04/02/22 14:00 Pulse Ox 97 04/02/22 14:00 Results - Labs lab Results: Laboratory Results - last 24 hr 04/02/22 04/02/22 04/02/22 09:35 09:35 09:35 WBC 69.0 H* RBC 4.70 Hgb 11.9 Hct 39.7 MCV 84 MCH 25 L MCHC 30 L RDW 22.5 H Plt Count 213 Add Manual Diff Complete Total Counted 200 Seg Neutrophils % Clinical Researcher Seg Neuts % (Manual) 91.5 H Band Neutrophils % 3.0 Lymphocytes % (Manual) 2.5 L Reactive Lymphs % (Man) 0 Monocytes % (Manual) 1.5 Eosinophils % (Manual) 0 Basophils % (Manual) 0 Metamyelocytes % 1.5 Myelocytes % 0 Promyelocytes % 0 Blast Cells % 0 Nucleated RBC % 1.5 H Seg Neutrophils # Man 63.1 H Band Neutrophils # 2.1 Lymphocytes # (Manual) 1.7 Abs React Lymphs (Man) 0.0 Monocytes # (Manual) 1.0 H Eosinophils # (Manual) 0.0 Basophils # (Manual) 0.0 Metamyelocytes # 1.0 Myelocytes # 0.0 Promyelocytes # 0.0 Blast Cells # 0.0 WBC Morphology Not Reportable Hypersegmented Neuts Not Reportable Hyposegmented Neuts Not Reportable Hypogranular Neuts Not Reportable Smudge Cells Not Reportable Toxic Granulation Not Reportable Toxic Vacuolation Not Reportable Dohle Bodies Not Reportable Pelger-Huet Anomaly Not Reportable Noa Rods Not Reportable Platelet Estimate Consistent w auto Clumped Platelets Not Reportable Plt Clumps, EDTA Not Reportable Large Platelets Not Reportable Giant Platelets Not Reportable Platelet Satelliting Not Reportable Plt Morphology Comment Not Reportable RBC Morphology Not Reportable Dimorphic RBCs Not Reportable Polychromasia Few Hypochromasia Not Reportable Poikilocytosis Not Reportable Anisocytosis 1+ Microcytosis Not Reportable Macrocytosis Not Reportable Spherocytes Not Reportable Pappenheimer Bodies Not Reportable Sickle Cells Not Reportable Target Cells Not Reportable Tear Drop Cells Not Reportable Ovalocytes Not Reportable Helmet Cells Not Reportable [place] Bodies Not Reportable Kechi Rings Not Reportable [place] Cells Not Reportable Bite Cells Not Reportable Crenated Cell Not Reportable Elliptocytes Not Reportable Acanthocytes (Spur) Not Reportable Rouleaux Not Reportable Hemoglobin C Crystals Not Reportable Schistocytes Not Reportable Malaria parasites Not Reportable [place] Bodies Not Reportable Hem Pathologist Commnt No PT 17.2 H INR 1.22 H APTT 29.5 D-Dimer ABG pH ABG pCO2 ABG pO2 ABG HCO3 ABG O2 Saturation ABG O2 Content ABG Base Excess ABG Hemoglobin ABG Carboxyhemoglobin ABG Methemoglobin Oxyhemoglobin FiO2 Sodium 138 Potassium 3.9 Chloride 93.9 L Carbon Dioxide 25 Anion Gap 23 BUN 19 Creatinine 1.5 H Estimated GFR 55 BUN/Creatinine Ratio 13 Glucose 138 H Lactic Acid Calcium 9.0 Total Bilirubin 1.00 AST 11 ALT 9 Alkaline Phosphatase 109 Troponin T < 0.010 NT-Pro-B Natriuret Pep 1445 H Total Protein 5.7 L Albumin 3.9 Albumin/Globulin Ratio 2.2 Urine Color Urine Turbidity Urine pH Ur Specific [place] Urine Protein Urine Glucose (UA) Urine Ketones Urine Blood Urine Nitrite Urine Bilirubin Urine Urobilinogen Ur Leukocyte Esterase Urine WBC (Auto) Urine RBC (Auto) U Epithel Cells (Auto) Urine Bacteria (Auto) Hyaline Casts Granular Casts Urine Mucus SARS-CoV-2 (PCR) 04/02/22 04/02/22 04/02/22 09:35 10:46 12:14 WBC RBC Hgb Hct MCV MCH MCHC RDW Plt Count Add Manual Diff Total Counted Seg Neutrophils % Seg Neuts % (Manual) Band Neutrophils % Lymphocytes % (Manual) Reactive Lymphs % (Man) Monocytes % (Manual) Eosinophils % (Manual) Basophils % (Manual) Metamyelocytes % Myelocytes % Promyelocytes % Blast Cells % Nucleated RBC % Seg Neutrophils # Man Band Neutrophils # Lymphocytes # (Manual) Abs React Lymphs (Man) Monocytes # (Manual) Eosinophils # (Manual) Basophils # (Manual) Metamyelocytes # Myelocytes # Promyelocytes # Blast Cells # WBC Morphology Hypersegmented Neuts Hyposegmented Neuts Hypogranular Neuts Smudge Cells Toxic Granulation Toxic Vacuolation Dohle Bodies Pelger-Huet Anomaly Noa Rods Platelet Estimate Clumped Platelets Plt Clumps, EDTA Large Platelets Giant Platelets Platelet Satelliting Plt Morphology Comment RBC Morphology Dimorphic RBCs Polychromasia Hypochromasia Poikilocytosis Anisocytosis Microcytosis Macrocytosis Spherocytes Pappenheimer Bodies Sickle Cells Target Cells Tear Drop Cells Ovalocytes Helmet Cells [place] Bodies Kechi Rings [place] Cells Bite Cells Crenated Cell Elliptocytes Acanthocytes (Spur) Rouleaux Hemoglobin C Crystals Schistocytes Malaria parasites Cuco Bodies Hem Pathologist Commnt PT INR APTT D-Dimer ABG pH ABG pCO2 ABG pO2 ABG HCO3 ABG O2 Saturation ABG O2 Content ABG Base Excess ABG Hemoglobin ABG Carboxyhemoglobin ABG Methemoglobin Oxyhemoglobin FiO2 Sodium Potassium Chloride Carbon Dioxide Anion Gap BUN Creatinine Estimated GFR BUN/Creatinine Ratio Glucose Lactic Acid 2.70 H* 2.50 H* Calcium Total Bilirubin AST ALT Alkaline Phosphatase Troponin T NT-Pro-B Natriuret Pep Total Protein Albumin Albumin/Globulin Ratio Urine Color Yellow Urine Turbidity Clear Urine pH 5.0 Ur Specific [place] 1.012 Urine Protein <15 mg/dl Urine Glucose (UA) Neg Urine Ketones Neg Urine Blood Neg Urine Nitrite Neg Urine Bilirubin Neg Urine Urobilinogen < 2 Ur Leukocyte Esterase Neg Urine WBC (Auto) < 1.0 Urine RBC (Auto) < 1.0 U Epithel Cells (Auto) 1.0 Urine Bacteria (Auto) 1+ Hyaline Casts 1 Granular Casts 7 Urine Mucus Few SARS-CoV-2 (PCR) 04/02/22 04/02/22 04/02/22 12:14 13:35 Unknown WBC RBC Hgb Hct MCV MCH MCHC RDW Plt Count Add Manual Diff Total Counted Seg Neutrophils % Seg Neuts % (Manual) Band Neutrophils % Lymphocytes % (Manual) Reactive Lymphs % (Man) Monocytes % (Manual) Eosinophils % (Manual) Basophils % (Manual) Metamyelocytes % Myelocytes % Promyelocytes % Blast Cells % Nucleated RBC % Seg Neutrophils # Man Band Neutrophils # Lymphocytes # (Manual) Abs React Lymphs (Man) Monocytes # (Manual) Eosinophils # (Manual) Basophils # (Manual) Metamyelocytes # Myelocytes # Promyelocytes # Blast Cells # WBC Morphology Hypersegmented Neuts Hyposegmented Neuts Hypogranular Neuts Smudge Cells Toxic Granulation Toxic Vacuolation Dohle Bodies Pelger-Huet Anomaly Noa Rods Platelet Estimate Clumped Platelets Plt Clumps, EDTA Large Platelets Giant Platelets Platelet Satelliting Plt Morphology Comment RBC Morphology Dimorphic RBCs Polychromasia Hypochromasia Poikilocytosis Anisocytosis Microcytosis Macrocytosis Spherocytes Pappenheimer Bodies Sickle Cells Target Cells Tear Drop Cells Ovalocytes Helmet Cells [place] Bodies Kechi Rings [place] Cells Bite Cells Crenated Cell Elliptocytes Acanthocytes (Spur) Rouleaux Hemoglobin C Crystals Schistocytes Malaria parasites Cuco Bodies Hem Pathologist Commnt PT INR APTT D-Dimer 271.75 H ABG pH 7.447 ABG pCO2 40.4 ABG pO2 75.6 L ABG HCO3 27.2 H ABG O2 Saturation 96.9 ABG O2 Content 15.1 ABG Base Excess 3.0 ABG Hemoglobin 11.5 L ABG Carboxyhemoglobin 3.5 ABG Methemoglobin 0.5 Oxyhemoglobin 93.0 L FiO2 36 Sodium Potassium Chloride Carbon Dioxide Anion Gap BUN Creatinine Estimated GFR BUN/Creatinine Ratio Glucose Lactic Acid Calcium Total Bilirubin AST ALT Alkaline Phosphatase Troponin T NT-Pro-B Natriuret Pep Total Protein Albumin Albumin/Globulin Ratio Urine Color Urine Turbidity Urine pH Ur Specific [place] Urine Protein Urine Glucose (UA) Urine Ketones Urine Blood Urine Nitrite Urine Bilirubin Urine Urobilinogen Ur Leukocyte Esterase Urine WBC (Auto) Urine RBC (Auto) U Epithel Cells (Auto) Urine Bacteria (Auto) Hyaline Casts Granular Casts Urine Mucus SARS-CoV-2 (PCR) Negative
[2022-04-02] MEDS ORDERED: ALBUTEROL 2.5 MG/3 ML NEBU IH PRN (16:00)
[2022-04-02] MEDS ORDERED: NON-FORMULARY EACH (Furosemide [Lasix Tab] 80 MG Tablet) PO SCH (22:00)
[2022-04-02] MEDS ORDERED: NON-FORMULARY EACH (Apixaban 5 MG Tablet) PO SCH (22:00)
[2022-04-02] MEDS ORDERED: FUROSEMIDE 40 MG TAB PO SCH (22:00)
[2022-04-02] MEDS: GABAPENTIN 100 MG CAP PO SCH (23:28)
[2022-04-03] MEDS: APIXABAN 5 MG TAB PO SCH ×3 (00:02→21:11)
[2022-04-03] MEDS: GABAPENTIN 100 MG CAP PO SCH ×3 (07:03→21:11)
[2022-04-03 08:22] LABS: BUN/Creatinine Ratio 19; Blood Urea Nitrogen 21 mg/dL (9-20); Calcium 8.5 mg/dL (8.4-10.2); Hemolysis Index 0
[2022-04-03] MEDS: FUROSEMIDE 40 MG TAB PO SCH ×2 (08:45→21:11)
[2022-04-03 08:49] LABS: Mean Corpuscular HGB Conc 30 % (32-34); Mean Corpuscular Volume 84 fl (84-94); Platelet Count 166 K/mm3 (140-440); Red Blood Count 4.26 M/mm3 (3.65-5.03)
[2022-04-03 09:12] LABS: Hematocrit 35.7 % (35.5-45.6); Hemoglobin 10.8 gm/dl (11.8-15.2); Red Cell Distribution Width 22.2 % (13.2-15.2)
[2022-04-03 09:39] LABS: Basophils % (Manual) 0 % (0.0-1.8); Eosinophils % (Manual) 0 % (0.0-4.3); Myelocytes # (Manual) 0.4 K/mm3; Total Cells Counted 100
[2022-04-03 09:44] LABS: Anisocytosis 1+; Platelet Estimate Consistent w Auto
[2022-04-03] MEDS ORDERED: PIPERACIL/TAZOBACTA 4.5/NS 100 4.5 GM/100 ML VIAL IV SCH (10:00)
[2022-04-03] MEDS: NICOTINE 14 MG/24 HR PATCH TD SCH (10:36)
[2022-04-03] MEDS: allopurinoL 300 MG TAB PO SCH (10:37)
[2022-04-03] MEDS: POTASSIUM CHLORIDE ER 20 MEQ TAB PO SCH (10:38)
[2022-04-03] MEDS: SPIRONOLACTONE 50 MG TAB PO SCH (10:44)
--- NOTE | 2022-04-03 11:34 | Consultation ---
History of Present Illness - Reason for Consult Consult date: 04/03/22 sepsis Requesting physician: ASHLEY JAMA - History of Present Illness The patient is a 31-year-old male with extreme obesity, CHF, obesity hypoventilation syndrome, diabetes, nicotine dependence, lymphedema was admitted to the hospital with body ache, fever, chills and dry cough. Went to his physician, was told he has heart failure and needs diuresis. Upon initial evaluation, labs revealed significant leukocytosis of 69K, CRP 14.4, elevated lactate, procalcitonin 6.7, mild DIXIE. COVID-19 PCR negative. Chest x-ray did not reveal any pneumonia. T-max of 100 F upon admission. No fever since then. Seen by hematology/oncology due to leukemoid reaction. On empiric abx: Zosyn. Feels fair. Review of Systems: General: Fever better HEENT: no new visual disturbance Respiratory: + shortness of breath Cardiovascular: No chest pain, syncope Gastrointestinal: No nausea, vomiting or diarrhea Genitourinary: No dysuria or hematuria Musculoskeletal: No new or worsening neck pain or back pain Neurologic: No headaches, seizures Hematologic: No easy bruising or bleeding Endocrine: No night sweats or acute weight loss Skin: negative for rash, jaundice Psychiatric: No suicidal or homicidal ideation Past History Past Medical History: DVT, GERD, heart failure, other (See HPI) Past Surgical History: No surgical history, Other (Reviewed) Social history: single, smoking. denies: alcohol abuse, prescription drug abuse Family history: hypertension Medications and Allergies Allergies Allergy/AdvReac Type Severity Reaction Status Date / Time clindamycin Allergy Stearns/Rash Verified 02/15/22 10:14 doxycycline Allergy Stearns/Rash Verified 02/15/22 10:14 latex Allergy Stearns/Rash Verified 02/15/22 10:14 metformin Allergy Stearns/Rash Verified 02/15/22 10:14 sulfamethoxazole Allergy Swelling Verified 02/15/22 10:14 [From Bactrim] trimethoprim [From Bactrim] Allergy Swelling Verified 02/15/22 10:14 vancomycin Allergy Hives Verified 02/15/22 10:14 Home Medications Medication Instructions Recorded Confirmed Last Taken Type Nicotine [Habitrol] 14 mg TD QDAY #20 patch 01/31/20 02/15/22 02/13/22 Rx Apixaban [Eliquis] 5 mg PO BID 02/15/22 02/15/22 Unknown History Furosemide [Lasix TAB] 80 mg PO BID 02/15/22 02/15/22 02/14/22 History Potassium Chloride [K-Dur] 20 meq PO QDAY 02/15/22 02/15/22 Unknown History traMADoL [Ultram] 50 mg PO BID PRN 02/15/22 02/15/22 Unknown History Apixaban [Eliquis] 5 mg PO Q12HR 30 Days #60 tablet 02/17/22 Unknown Rx Apixaban [Eliquis] 10 mg PO Q12HR 4 Days #8 tablet 02/17/22 Unknown Rx Furosemide [Lasix TAB] 80 mg PO DAILY 30 Days #30 tab 02/17/22 Unknown Rx Gabapentin 100 mg PO Q8HR 30 Days #90 capsule 02/17/22 Unknown Rx Spironolactone [Aldactone] 50 mg PO QDAY 30 Days #30 tablet 02/17/22 Unknown Rx Active Meds: Active Medications Acetaminophen (Acetaminophen 325 Mg Tab) 650 mg PO Q4H PRN PRN Reason: Pain MILD(1-3)/Fever >100.5/ARENAS Albuterol (Albuterol 2.5 Mg/3 Ml Nebu) 2.5 mg IH Q4HRT PRN PRN Reason: Shortness Of Breath Allopurinol (Allopurinol 300 Mg Tab) 300 mg PO QDAY [facility] Last Admin: 04/03/22 10:37 Dose: 300 mg Apixaban (Apixaban 5 Mg Tab) 5 mg PO Q12HR [facility] Last Admin: 04/03/22 10:37 Dose: 5 mg Furosemide (Furosemide 40 Mg Tab) 80 mg PO BID@0800,1999 [facility] Last Admin: 04/03/22 08:45 Dose: 80 mg Gabapentin (Gabapentin 100 Mg Cap) 100 mg PO Q8HR [facility] Last Admin: 04/03/22 07:03 Dose: 100 mg Hydromorphone HCl (Hydromorphone 0.5 Mg/0.5 Ml Inj) 0.25 mg IV Q4H PRN PRN Reason: Pain, Moderate (4-6) Hydromorphone HCl (Hydromorphone 0.5 Mg/0.5 Ml Inj) 0.5 mg IV Q13H PRN PRN Reason: Pain , Severe (7-10) Piperacillin Sod/Tazobactam Sod (Zosyn/Ns 4.5gm/100ml) 4.5 gm in 100 mls @ 200 mls/hr IV Q6HR [facility] Last Admin: 04/03/22 10:37 Dose: 200 mls/hr Nicotine (Nicotine 14 Mg/24 Hr Patch) 14 mg TD QDAY [facility] Last Admin: 04/03/22 10:36 Dose: 14 mg Ondansetron HCl (Ondansetron 4 Mg/2 Ml Inj) 4 mg IV Q8H PRN PRN Reason: Nausea And Vomiting Oxycodone/Acetaminophen (Oxycodone /Acetaminophen 5-325mg Tab) 1 tab PO Q6H PRN PRN Reason: Pain, Moderate (4-6) Potassium Chloride (Potassium Chloride Er 20 Meq Tab) 20 meq PO QDAY [facility] Last Admin: 04/03/22 10:38 Dose: 20 meq Sodium Chloride (Sodium Chloride 0.9% 10 Ml Flush Syringe) 10 ml IV BID [facility] Last Admin: 04/03/22 10:37 Dose: 10 ml Sodium Chloride (Sodium Chloride 0.9% 10 Ml Flush Syringe) 10 ml IV PRN PRN PRN Reason: LINE FLUSH Spironolactone (Spironolactone 50 Mg Tab) 50 mg PO QDAY [facility] Last Admin: 04/03/22 10:44 Dose: 50 mg Physical Examination - Physical Exam Narrative exam: Physical Exam: Constitutional: Alert, cooperative. No acute distress. Severe obesity Head, Ears, Nose: Normocephalic, atraumatic. External ears, nose normal Eyes: Conjunctivae/corneas clear. No icterus. No ptosis. Neck: Supple, no meningeal signs Cardiovascular: S1, S2 + Respiratory: Good air entry, clear to auscultation bilaterally GI: Obese with large pannus, no tenderness Musculoskeletal: Bilateral lower extremity with severe chronic lymphedema, dry skin, stasis dermatitis. Skin: No rash or abscess Hem/Lymphatic: No palpable cervical or supraclavicular nodes. No lymphangitis Psych: Mood ok. Affect normal Neurological: Awake, alert, oriented. No gross abnormality - Constitutional Vitals: Vital Signs Temp Pulse Resp BP Pulse Ox 97.7 F 75 20 100/49 87 04/03/22 05:39 04/03/22 10:44 04/03/22 05:39 04/03/22 10:44 04/03/22 05:48 Temperature -Last 24 Hours Temperature 97.7 F Temperature 97.6 F Temperature 98.2 F Temperature 98.9 F Results - Labs CBC & Chem 7: 04/03/22 07:37 04/03/22 07:37 Labs: Abnormal lab results 04/02/22 04/02/22 04/02/22 Range/Units 09:35 10:46 13:35 WBC (4.5-11.0) K/mm3 Hgb (11.8-15.2) gm/dl MCH (28-32) pg MCHC (32-34) % RDW (13.2-15.2) % Seg Neuts % (Manual) 91.5 H (40.0-70.0) % Lymphocytes % (Manual) 2.5 L (13.4-35.0) % Nucleated RBC % 1.5 H (0.0-0.9) % Seg Neutrophils # Man 63.1 H (1.8-7.7) K/mm3 Monocytes # (Manual) 1.0 H (0.0-0.8) K/mm3 D-Dimer 280.50 H (0-234) ng/mlDDU ABG pO2 (80.0-90.0) mm Hg ABG HCO3 (20.0-26.0) mmol/L ABG Hemoglobin (14.0-18.0) gm/dl Oxyhemoglobin (95.0-99.0) % Sodium (137-145) mmol/L Chloride (98-107) mmol/L BUN (9-20) mg/dL Glucose (75-100) mg/dL Lactic Acid 2.50 H* (0.7-2.0) mmol/L Uric Acid (3.5-7.6) mg/dL Lactate Dehydrogenase (91-180) units/L C-Reactive Protein (0.00-1.30) mg/dL 04/02/22 04/02/22 04/02/22 Range/Units 13:35 13:35 16:22 WBC (4.5-11.0) K/mm3 Hgb (11.8-15.2) gm/dl MCH (28-32) pg MCHC (32-34) % RDW (13.2-15.2) % Seg Neuts % (Manual) (40.0-70.0) % Lymphocytes % (Manual) (13.4-35.0) % Nucleated RBC % (0.0-0.9) % Seg Neutrophils # Man (1.8-7.7) K/mm3 Monocytes # (Manual) (0.0-0.8) K/mm3 D-Dimer 271.75 H (0-234) ng/mlDDU ABG pO2 (80.0-90.0) mm Hg ABG HCO3 (20.0-26.0) mmol/L ABG Hemoglobin (14.0-18.0) gm/dl Oxyhemoglobin (95.0-99.0) % Sodium (137-145) mmol/L Chloride (98-107) mmol/L BUN (9-20) mg/dL Glucose 119 H (75-100) mg/dL Lactic Acid (0.7-2.0) mmol/L Uric Acid 10.5 H (3.5-7.6) mg/dL Lactate Dehydrogenase 423 H (91-180) units/L C-Reactive Protein 14.40 H (0.00-1.30) mg/dL 04/02/22 04/03/22 04/03/22 Range/Units Unknown 07:37 07:37 WBC 39.4 H (4.5-11.0) K/mm3 Hgb 10.8 L (11.8-15.2) gm/dl MCH 25 L (28-32) pg MCHC 30 L (32-34) % RDW 22.2 H (13.2-15.2) % Seg Neuts % (Manual) 82.0 H (40.0-70.0) % Lymphocytes % (Manual) 3.0 L (13.4-35.0) % Nucleated RBC % (0.0-0.9) % Seg Neutrophils # Man 32.3 H (1.8-7.7) K/mm3 Monocytes # (Manual) 2.0 H (0.0-0.8) K/mm3 D-Dimer (0-234) ng/mlDDU ABG pO2 75.6 L (80.0-90.0) mm Hg ABG HCO3 27.2 H (20.0-26.0) mmol/L ABG Hemoglobin 11.5 L (14.0-18.0) gm/dl Oxyhemoglobin 93.0 L (95.0-99.0) % Sodium 136 L (137-145) mmol/L Chloride 96.2 L (98-107) mmol/L BUN 21 H (9-20) mg/dL Glucose 121 H (75-100) mg/dL Lactic Acid (0.7-2.0) mmol/L Uric Acid (3.5-7.6) mg/dL Lactate Dehydrogenase (91-180) units/L C-Reactive Protein (0.00-1.30) mg/dL - Imaging and Cardiology Chest x-ray: report reviewed, image reviewed (no obvious pneumonia seen) Assessment and Plan Cultures: 04/02/2022 blood culture: In process A/P: 31-year-old male with extreme obesity, CHF, obesity hypoventilation syndrome, diabetes, nicotine dependence, lymphedema was admitted to the hospital with body ache, fever, chills and dry cough: #Sepsis, leukemoid reaction: Does seem to have some underlying bone marrow process, chronic leukocytosis with superimposed infection, ? panniculitis/cellu litis. Improving with antibiotics. Hematology oncology following. CRP 14.4, elevated lactate, procalcitonin 6.7. #Morbid obesity class III #Mild DIXIE: Creatinine better. #CHF #Chronic lymphedema Recs: Zosyn switched to IV Ceftriaxone 2 gm q12 hrs, higher dose due to morbid obesity Linezolid added f/u blood cultures monitor CBC Kyra Lazcano MD, FACSHAN[facility] O: [phone] F: [phone] C: [phone]
[2022-04-03] MEDS: cefTRIAXone/NS 2 GM/100 ML 2 GM/100 ML BAG IV SCH ×2 (12:14→21:12)
--- NOTE | 2022-04-03 13:09 | Hem/Onc Progress Note ---
Subjective Date of service: 04/03/22 Interval history: Heme Progress Note Seen via [facility] CPT 26419 Dx Leukocytosis 31 yo morbidly obese male with complaints of fever, weakness, and abdominal pain Pmhx of diastolic CHF, chronic respiratory failure on 2L home oxygen, morbid obesity, hypoventilation syndrome, DM, asthma, nicotine dependence, lymphedema, and GERD. Lower abdominal pain, fever to 103.2 F, abdominal redness, tenderness, and swelling. Hematology following leukocytosis. Patient examined at bedside, in no acute distress noted. Denies SOB, chest pain or fevers. Reports improvement in symptoms. Labs reviewed and plan discussed with patient. ASSESSMENT: Leukocytosis Infection +/- myeloproliferative disorder Not acute leukemia --> 92% neutrophils, 1.5% metas CML is possible PLAN: Follow flow cytometry, BCR-ABL Will need CT chest/abd/pel, evaluate for splenomegaly/ rule out malignancy Unable to complete CT's due to weight (223kg) recommend transfer for chest/abd/pel CT Case d/w Dr. Josue Patel. Laboratory Last Values WBC 39.4 K/mm3 (4.5-11.0) H 04/03/22 07:37 Hgb 10.8 gm/dl (11.8-15.2) L 04/03/22 07:37 Hct 35.7 % (35.5-45.6) 04/03/22 07:37 MCV 84 fl (84-94) 04/03/22 07:37 Plt Count 166 K/mm3 (140-440) 04/03/22 07:37 Seg Neuts % (Manual) 82.0 % (40.0-70.0) H 04/03/22 07:37 Lymphocytes % (Manual) 3.0 % (13.4-35.0) L 04/03/22 07:37 Metamyelocytes % 4.0 % 04/03/22 07:37 Myelocytes % 1.0 % 04/03/22 07:37 Promyelocytes % 0 % 04/03/22 07:37 Blast Cells % 0 % 04/03/22 07:37 Seg Neutrophils # Man 32.3 K/mm3 (1.8-7.7) H 04/03/22 07:37 Monocytes # (Manual) 2.0 K/mm3 (0.0-0.8) H 04/03/22 07:37 PT 17.2 Sec. (12.2-14.9) H 04/02/22 09:35 INR 1.22 (0.87-1.13) H 04/02/22 09:35 APTT 29.5 Sec. (24.2-36.6) 04/02/22 09:35 D-Dimer 271.75 ng/mlDDU (0-234) H 04/02/22 13:35 D-Dimer 280.50 ng/mlDDU (0-234) H 04/02/22 13:35 Creatinine 1.1 mg/dL (0.8-1.3) 04/03/22 07:37 Glucose 121 mg/dL (75-100) H 04/03/22 07:37 Uric Acid 10.5 mg/dL (3.5-7.6) H 04/02/22 16:22 AST 11 units/L (5-40) 04/02/22 09:35 ALT 9 units/L (7-56) 04/02/22 09:35 Alkaline Phosphatase 109 units/L (35-129) 04/02/22 09:35 Lactate Dehydrogenase 423 units/L (91-180) H 04/02/22 13:35 C-Reactive Protein 14.40 mg/dL (0.00-1.30) H 04/02/22 13:35 NT-Pro-B Natriuret Pep 1445 pg/mL (0-450) H 04/02/22 09:35 Total Protein 5.7 g/dL (6.3-8.2) L 04/02/22 09:35 SARS-CoV-2 (PCR) Negative (Negative) 04/02/22 12:14 Blood Type O POSITIVE 04/02/22 16:22 Antibody Screen Negative 04/02/22 16:22 Objective - Constitutional Vitals: Last Vital Signs Temp 97.7 F 04/03/22 05:39 Pulse 75 04/03/22 10:44 Resp 20 04/03/22 05:39 BP 100/49 04/03/22 10:44 Pulse Ox 87 04/03/22 05:48 - Labs Lab Results: Laboratory Results - last 24 hr 04/02/22 04/02/22 04/02/22 12:14 13:35 13:35 WBC RBC Hgb Hct MCV MCH MCHC RDW Plt Count Add Manual Diff Total Counted Seg Neuts % (Manual) Band Neutrophils % Lymphocytes % (Manual) Reactive Lymphs % (Man) Monocytes % (Manual) Eosinophils % (Manual) Basophils % (Manual) Metamyelocytes % Myelocytes % Promyelocytes % Blast Cells % Nucleated RBC % Seg Neutrophils # Man Band Neutrophils # Lymphocytes # (Manual) Abs React Lymphs (Man) Monocytes # (Manual) Eosinophils # (Manual) Basophils # (Manual) Metamyelocytes # Myelocytes # Promyelocytes # Blast Cells # WBC Morphology Hypersegmented Neuts Hyposegmented Neuts Hypogranular Neuts Smudge Cells Toxic Granulation Toxic Vacuolation Dohle Bodies Pelger-Huet Anomaly Noa Rods Platelet Estimate Clumped Platelets Plt Clumps, EDTA Large Platelets Giant Platelets Platelet Satelliting Plt Morphology Comment RBC Morphology Dimorphic RBCs Polychromasia Hypochromasia Poikilocytosis Anisocytosis Microcytosis Macrocytosis Spherocytes Pappenheimer Bodies Sickle Cells Target Cells Tear Drop Cells Ovalocytes Helmet Cells [place] Bodies [place] Rings [place] Cells Bite Cells Crenated Cell Elliptocytes Acanthocytes (Spur) Rouleaux Hemoglobin C Crystals Schistocytes Malaria parasites [place] Bodies Hem Pathologist Commnt D-Dimer 280.50 H Sodium Potassium Chloride Carbon Dioxide Anion Gap BUN Creatinine Estimated GFR BUN/Creatinine Ratio Glucose 119 H Lactic Acid Uric Acid Calcium Lactate Dehydrogenase 423 H C-Reactive Protein 14.40 H Procalcitonin SARS-CoV-2 (PCR) Negative Blood Type Antibody Screen 04/02/22 04/02/22 04/02/22 13:35 13:35 16:22 WBC RBC Hgb Hct MCV MCH MCHC RDW Plt Count Add Manual Diff Total Counted Seg Neuts % (Manual) Band Neutrophils % Lymphocytes % (Manual) Reactive Lymphs % (Man) Monocytes % (Manual) Eosinophils % (Manual) Basophils % (Manual) Metamyelocytes % Myelocytes % Promyelocytes % Blast Cells % Nucleated RBC % Seg Neutrophils # Man Band Neutrophils # Lymphocytes # (Manual) Abs React Lymphs (Man) Monocytes # (Manual) Eosinophils # (Manual) Basophils # (Manual) Metamyelocytes # Myelocytes # Promyelocytes # Blast Cells # WBC Morphology Hypersegmented Neuts Hyposegmented Neuts Hypogranular Neuts Smudge Cells Toxic Granulation Toxic Vacuolation Dohle Bodies Pelger-Huet Anomaly Noa Rods Platelet Estimate Clumped Platelets Plt Clumps, EDTA Large Platelets Giant Platelets Platelet Satelliting Plt Morphology Comment RBC Morphology Dimorphic RBCs Polychromasia Hypochromasia Poikilocytosis Anisocytosis Microcytosis Macrocytosis Spherocytes Pappenheimer Bodies Sickle Cells Target Cells Tear Drop Cells Ovalocytes Helmet Cells [place] Bodies [place] Rings [place] Cells Bite Cells Crenated Cell Elliptocytes Acanthocytes (Spur) Rouleaux Hemoglobin C Crystals Schistocytes Malaria parasites [place] Bodies Hem Pathologist Commnt D-Dimer 271.75 H Sodium Potassium Chloride Carbon Dioxide Anion Gap BUN Creatinine Estimated GFR BUN/Creatinine Ratio Glucose Lactic Acid Uric Acid Calcium Lactate Dehydrogenase C-Reactive Protein Procalcitonin 6.75 SARS-CoV-2 (PCR) Blood Type O POSITIVE Antibody Screen Negative 04/02/22 04/02/22 04/03/22 16:22 16:22 07:37 WBC RBC Hgb Hct MCV MCH MCHC RDW Plt Count Add Manual Diff Total Counted Seg Neuts % (Manual) Band Neutrophils % Lymphocytes % (Manual) Reactive Lymphs % (Man) Monocytes % (Manual) Eosinophils % (Manual) Basophils % (Manual) Metamyelocytes % Myelocytes % Promyelocytes % Blast Cells % Nucleated RBC % Seg Neutrophils # Man Band Neutrophils # Lymphocytes # (Manual) Abs React Lymphs (Man) Monocytes # (Manual) Eosinophils # (Manual) Basophils # (Manual) Metamyelocytes # Myelocytes # Promyelocytes # Blast Cells # WBC Morphology Hypersegmented Neuts Hyposegmented Neuts Hypogranular Neuts Smudge Cells Toxic Granulation Toxic Vacuolation Dohle Bodies Pelger-Huet Anomaly Noa Rods Platelet Estimate Clumped Platelets Plt Clumps, EDTA Large Platelets Giant Platelets Platelet Satelliting Plt Morphology Comment RBC Morphology Dimorphic RBCs Polychromasia Hypochromasia Poikilocytosis Anisocytosis Microcytosis Macrocytosis Spherocytes Pappenheimer Bodies Sickle Cells Target Cells Tear Drop Cells Ovalocytes Helmet Cells [place] Bodies [place] Cells Bite Cells Crenated Cell Elliptocytes Acanthocytes (Spur) Rouleaux Hemoglobin C Crystals Schistocytes Malaria parasites [place] Bodies Hem Pathologist Commnt D-Dimer Sodium Potassium Chloride Carbon Dioxide Anion Gap BUN Creatinine Estimated GFR BUN/Creatinine Ratio Glucose Lactic Acid 1.30 0.70 Uric Acid 10.5 H Calcium Lactate Dehydrogenase C-Reactive Protein Procalcitonin SARS-CoV-2 (PCR) Blood Type Antibody Screen 04/03/22 04/03/22 07:37 07:37 WBC 39.4 H RBC 4.26 Hgb 10.8 L Hct 35.7 MCV 84 MCH 25 L MCHC 30 L RDW 22.2 H Plt Count 166 Add Manual Diff Complete Total Counted 100 Seg Neuts % (Manual) 82.0 H Band Neutrophils % 5.0 Lymphocytes % (Manual) 3.0 L Reactive Lymphs % (Man) 0 Monocytes % (Manual) 5.0 Eosinophils % (Manual) 0 Basophils % (Manual) 0 Metamyelocytes % 4.0 Myelocytes % 1.0 Promyelocytes % 0 Blast Cells % 0 Nucleated RBC % Not Reportable Seg Neutrophils # Man 32.3 H Band Neutrophils # 2.0 Lymphocytes # (Manual) 1.2 Abs React Lymphs (Man) 0.0 Monocytes # (Manual) 2.0 H Eosinophils # (Manual) 0.0 Basophils # (Manual) 0.0 Metamyelocytes # 1.6 Myelocytes # 0.4 Promyelocytes # 0.0 Blast Cells # 0.0 WBC Morphology Not Reportable Hypersegmented Neuts Not Reportable Hyposegmented Neuts Not Reportable Hypogranular Neuts Not Reportable Smudge Cells Not Reportable Toxic Granulation Not Reportable Toxic Vacuolation Not Reportable Dohle Bodies Not Reportable Pelger-Huet Anomaly Not Reportable Noa Rods Not Reportable Platelet Estimate Consistent w auto Clumped Platelets Not Reportable Plt Clumps, EDTA Not Reportable Large Platelets Not Reportable Giant Platelets Not Reportable Platelet Satelliting Not Reportable Plt Morphology Comment Not Reportable RBC Morphology Not Reportable Dimorphic RBCs Not Reportable Polychromasia Few Hypochromasia Not Reportable Poikilocytosis Not Reportable Anisocytosis 1+ Microcytosis Not Reportable Macrocytosis Not Reportable Spherocytes Not Reportable Pappenheimer Bodies Not Reportable Sickle Cells Not Reportable Target Cells Not Reportable Tear Drop Cells Not Reportable Ovalocytes Not Reportable Helmet Cells Not Reportable [place] Bodies Not Reportable [place] Rings Not Reportable [place] Cells Not Reportable Bite Cells Not Reportable Crenated Cell Not Reportable Elliptocytes Not Reportable Acanthocytes (Spur) Not Reportable Rouleaux Not Reportable Hemoglobin C Crystals Not Reportable Schistocytes Not Reportable Malaria parasites Not Reportable [place] Bodies Not Reportable Hem Pathologist Commnt No D-Dimer Sodium 136 L Potassium 3.8 Chloride 96.2 L Carbon Dioxide 30 Anion Gap 14 BUN 21 H Creatinine 1.1 Estimated GFR > 60 BUN/Creatinine Ratio 19 Glucose 121 H Lactic Acid Uric Acid Calcium 8.5 Lactate Dehydrogenase C-Reactive Protein Procalcitonin SARS-CoV-2 (PCR) Blood Type Antibody Screen Medications & Allergies - Medications Allergies/Adverse Reactions: Allergies clindamycin Allergy (Verified 02/15/22 10:14) Stearns/Rash doxycycline Allergy (Verified 02/15/22 10:14) Stearns/Rash latex Allergy (Verified 02/15/22 10:14) Stearns/Rash metformin Allergy (Verified 02/15/22 10:14) Stearns/Rash sulfamethoxazole [From Bactrim] Allergy (Verified 02/15/22 10:14) Swelling Stearns/Rash trimethoprim [From Bactrim] Allergy (Verified 02/15/22 10:14) Swelling Stearns/Rash vancomycin Allergy (Verified 02/15/22 10:14) Hives Stearns/Rash Home Medications: Home Medications Medication Instructions Recorded Confirmed Last Taken Type Nicotine [Habitrol] 14 mg TD QDAY #20 patch 01/31/20 02/15/22 02/13/22 Rx Apixaban [Eliquis] 5 mg PO BID 02/15/22 02/15/22 Unknown History Furosemide [Lasix TAB] 80 mg PO BID 02/15/22 02/15/22 02/14/22 History Potassium Chloride [K-Dur] 20 meq PO QDAY 02/15/22 02/15/22 Unknown History traMADoL [Ultram] 50 mg PO BID PRN 02/15/22 02/15/22 Unknown History Apixaban [Eliquis] 5 mg PO Q12HR 30 Days #60 tablet 02/17/22 Unknown Rx Apixaban [Eliquis] 10 mg PO Q12HR 4 Days #8 tablet 02/17/22 Unknown Rx Furosemide [Lasix TAB] 80 mg PO DAILY 30 Days #30 tab 02/17/22 Unknown Rx Gabapentin 100 mg PO Q8HR 30 Days #90 capsule 02/17/22 Unknown Rx Spironolactone [Aldactone] 50 mg PO QDAY 30 Days #30 tablet 02/17/22 Unknown Rx Active Medications: Generic Name Dose Route Start Last Admin Trade Name Freq PRN Reason Stop Dose Admin Acetaminophen 650 mg 04/02/22 15:00 Acetaminophen 325 Mg Tab PO Q4H PRN Pain MILD(1-3)/Fever >100.5/ARENAS Albuterol 2.5 mg 04/02/22 16:00 Albuterol 2.5 Mg/3 Ml Nebu IH Q4HRT PRN Shortness Of Breath Allopurinol 300 mg 04/03/22 10:00 04/03/22 10:37 Allopurinol 300 Mg Tab PO 300 mg QDAY MICHELLE Administration Apixaban 5 mg 04/02/22 23:45 04/03/22 10:37 Apixaban 5 Mg Tab PO 5 mg Q12HR MICHELLE Administration Furosemide 80 mg 04/03/22 08:30 04/03/22 08:45 Furosemide 40 Mg Tab PO 80 mg BID@0800,2000 MICHELLE Administration Gabapentin 100 mg 04/02/22 22:00 04/03/22 07:03 Gabapentin 100 Mg Cap PO 100 mg Q8HR MICHELLE Administration Hydromorphone HCl 0.25 mg 04/02/22 15:00 Hydromorphone 0.5 Mg/0.5 Ml Inj IV Q4H PRN Pain, Moderate (4-6) Hydromorphone HCl 0.5 mg 04/02/22 15:00 Hydromorphone 0.5 Mg/0.5 Ml Inj IV Q13H PRN Pain , Severe (7-10) Ceftriaxone Sodium 2 gm in 100 mls @ 200 mls/hr 04/03/22 12:00 04/03/22 12:14 Rocephin/Ns 2 Gm/100 Ml IV 200 mls/hr Q12HR MICHELLE Administration Protocol Linezolid 600 mg 04/03/22 12:00 Linezolid 600 Mg Tab PO Q12HR MICHELLE Protocol Nicotine 14 mg 04/03/22 10:00 04/03/22 10:36 Nicotine 14 Mg/24 Hr Patch TD 14 mg QDAY MICHELLE Administration Ondansetron HCl 4 mg 04/02/22 15:00 Ondansetron 4 Mg/2 Ml Inj IV Q8H PRN Nausea And Vomiting Oxycodone/Acetaminophen 1 tab 04/02/22 15:00 Oxycodone /Acetaminophen 5-325mg Tab PO Q6H PRN Pain, Moderate (4-6) Potassium Chloride 20 meq 04/03/22 10:00 04/03/22 10:38 Potassium Chloride Er 20 Meq Tab PO 20 meq QDAY MICHELLE Administration Sodium Chloride 10 ml 04/02/22 22:00 04/03/22 10:37 Sodium Chloride 0.9% 10 Ml Flush Syringe IV 10 ml BID MICHELLE Administration Sodium Chloride 10 ml 04/02/22 15:00 Sodium Chloride 0.9% 10 Ml Flush Syringe IV PRN PRN LINE FLUSH Spironolactone 50 mg 04/03/22 10:00 04/03/22 10:44 Spironolactone 50 Mg Tab PO 50 mg QDAY MICHELLE Administration
[2022-04-03] MEDS: LINEZOLID 600 MG TAB PO SCH ×2 (15:34→22:36)
--- NOTE | 2022-04-03 18:26 | Progress Note ---
Assessment and Plan Assessment and plan: 31 YO Male with Super Morbid Obesity, BMI 77, diastolic CHF, Chronic respiratory Failure on 2L Home Oxygen, Obesity Hypoventilation Syndrome, DM, Asthma, ongoing tobacco smoking, chronic lymphedema, GERD, DVT on therapeutic anticoagulation with Eliquis is independent of ADLs does not need any walking, lives with his mother aid presents to ED for sudden onset body aches, fever, chills, dry cough, weakness, pain to his lower abdomen over the past 3 days with persistently worsening symptoms and is concerned about having COVID-19 infection. Patient acknowledges fever to 101.2 F, dry cough. Patient called EMS to go to ED. Patient found to have a pulse oximetry of 88% on room air which is consistent with acute hypoxemic respiratory failure. Patient also found to have sepsis with lactic acidosis and leukocytosis. Patient admitted to medical floor and initiated on coronavirus protocol as well as sepsis protocol . Patient found to have significant leukocytosis. Hematology service consulted in ED prior to my evaluation. Patient denies chest pain, palpitations, , skin rash, or recent ill contacts, or known exposure to COVID-19. Prior admission on 02/14/2022 reviewed. (1) Sepsis Current Visit: Yes Status: Acute Plan to address problem: Presented with fever, malaise chills, severe leukocytosis, WBC 69, lactic acid 2.7, creatinine 1.5, elevated procalcitonin meeting criteria for sepsis. Etiology is unclear. Tested negative for COVID. No focal symptoms other than dry cough. No changes of intertrigo or panniculitis under abdominal wall folds. Blood cultures negative to date. Placed on sepsis protocol: Chest x-ray, CBC, CMP, supplemental oxygen, pulse oximetry, IV antibiotic therapy, monitor fluid balance, serial lactic acid level, maintain mean arterial pressure greater than equal 65, blood culture. Patient feeling much improvement of his presenting symptoms. Empiric antibiotic therapy with Zosyn changed to cefepime and added Zyvox on 04/03 by ID. (2) rule out 2019 novel coronavirus infection Current Visit: Yes Status: Acute Plan to address problem: (3) Obesity hypoventilation syndrome Current Visit: Yes Status: Acute Plan to address problem: Balanced diet, increase physical activity discharge, outpatient pulmonary follow-up for sleep study. (4) CHF (congestive heart failure) Current Visit: No Status: Chronic Qualifiers: Heart failure chronicity: acute Plan to address problem: Strict I/O, monitoring output every shift, daily weight, afterload reduction, diuretic therapy with Lasix, blood pressure control, supplemental oxygen, pulse oximetry. (5) GERD (gastroesophageal reflux disease) Current Visit: No Status: Chronic Qualifiers: Esophagitis presence: without esophagitis Qualified Code(s): K21.9 - Gastro-esophageal reflux disease without esophagitis Plan to address problem: PPI therapy, supportive care (6) Lymphedema, chronic due to severe obesity, stable Current Visit: No Status: Chronic Plan to address problem: Chronic, supportive care. (7) T2DM (type 2 diabetes mellitus) Current Visit: No Status: Chronic Qualifiers: Diabetes mellitus usp insulin use: unspecified usp insulin use status Plan to address problem: Consistent carbohydrate diet, Accu-Chek, insulin protocol, hypoglycemia protocol as clinically indicated. (8) Leukocytosis, severe Current Visit: Yes Status: Acute Plan to address problem: Initial WBC 69 and today 39, rapidly improving suggestive of leukemoid reaction. Oncology service consulted. Unable to perform CT abdomen due to BMI 77. Clinical improved. Oncology agrees that no indication for urgent CT study. (9) Acute and chronic respiratory failure Current Visit: Yes Status: Acute Qualifiers: Respiratory failure complication: hypoxia Qualified Code(s): J96.21 - Acute and chronic respiratory failure with hypoxia Plan to address problem: Supplemental oxygen, pulse oximetry, nebulizer therapy, chest x-ray, noninvasive positive pressure ventilation as clinically indicated. (10) DVT prophylaxis Current Visit: No Status: Acute Plan to address problem: SCD to bilateral lower extremities while in bed, continue therapeutic anticoagulation (11) Advance care planning Current Visit: No Status: Acute Plan to address problem: Disease education conducted, care plan discussed, diagnoses discussed, prognosis discussed, patient knowledges understanding and agreement care plan, Discussed with the patient, nursing staff and oncology service History Interval history: Patient reports improvement of fever, chills, malaise, body aches and dry cough since admitted. COVID test negative. T-max 100. Severe leukocytosis quickly improving. No other focal signs of infection. Patient denies dysuria, nausea or vomiting. No abdominal pains. No areas of intertrigo or pancolitis on exam today. Zosyn changed to cefepime and added Zyvox by ID today. Hospitalist Physical - Constitutional Vitals: Temp Pulse Resp BP Pulse Ox 97.7 F 78 20 108/54 95 04/03/22 11:34 04/03/22 11:34 04/03/22 14:00 04/03/22 11:34 04/03/22 14:00 General appearance: Present: no acute distress, obese (Super obese, BMI 77) - EENT Eyes: Present: PERRL, EOM intact ENT: hearing intact, clear oral mucosa - Neck Neck: Present: supple. Absent: masses or JVD - Respiratory Respiratory effort: normal Respiratory: bilateral: CTA - Cardiovascular Rhythm: regular - Extremities Extremity abnormal: other (Chronically bilateral lower extremity lymphedema) - Abdominal General gastrointestinal: soft, non-tender, other (No intertrigo or pancolitis changes.) - Integumentary Integumentary: Absent: rash - Psychiatric Psychiatric: appropriate mood/affect - Neurologic Neurologic: no focal deficits HEART Score - HEART Score Troponin: Troponin T < 0.010 ng/mL (0.00-0.029) 04/02/22 09:35 Results - Labs CBC & Chem 7: 04/04/22 04:42 04/03/22 07:37 Labs: Laboratory Last Values WBC 39.4 K/mm3 (4.5-11.0) H 04/03/22 07:37 RBC 4.26 M/mm3 (3.65-5.03) 04/03/22 07:37 Hgb 10.8 gm/dl (11.8-15.2) L 04/03/22 07:37 Hct 35.7 % (35.5-45.6) 04/03/22 07:37 MCV 84 fl (84-94) 04/03/22 07:37 MCH 25 pg (28-32) L 04/03/22 07:37 MCHC 30 % (32-34) L 04/03/22 07:37 RDW 22.2 % (13.2-15.2) H 04/03/22 07:37 Plt Count 166 K/mm3 (140-440) 04/03/22 07:37 Add Manual Diff Complete 04/03/22 07:37 Total Counted 100 04/03/22 07:37 Seg Neutrophils % Certified Genetic Counselor 04/02/22 09:35 Seg Neuts % (Manual) 82.0 % (40.0-70.0) H 04/03/22 07:37 Band Neutrophils % 5.0 % 04/03/22 07:37 Lymphocytes % (Manual) 3.0 % (13.4-35.0) L 04/03/22 07:37 Reactive Lymphs % (Man) 0 % 04/03/22 07:37 Monocytes % (Manual) 5.0 % (0.0-7.3) 04/03/22 07:37 Eosinophils % (Manual) 0 % (0.0-4.3) 04/03/22 07:37 Basophils % (Manual) 0 % (0.0-1.8) 04/03/22 07:37 Metamyelocytes % 4.0 % 04/03/22 07:37 Myelocytes % 1.0 % 04/03/22 07:37 Promyelocytes % 0 % 04/03/22 07:37 Blast Cells % 0 % 04/03/22 07:37 Nucleated RBC % Not Reportable 04/03/22 07:37 Seg Neutrophils # Man 32.3 K/mm3 (1.8-7.7) H 04/03/22 07:37 Band Neutrophils # 2.0 K/mm3 04/03/22 07:37 Lymphocytes # (Manual) 1.2 K/mm3 (1.2-5.4) 04/03/22 07:37 Abs React Lymphs (Man) 0.0 K/mm3 04/03/22 07:37 Monocytes # (Manual) 2.0 K/mm3 (0.0-0.8) H 04/03/22 07:37 Eosinophils # (Manual) 0.0 K/mm3 (0.0-0.4) 04/03/22 07:37 Basophils # (Manual) 0.0 K/mm3 (0.0-0.1) 04/03/22 07:37 Metamyelocytes # 1.6 K/mm3 04/03/22 07:37 Myelocytes # 0.4 K/mm3 04/03/22 07:37 Promyelocytes # 0.0 K/mm3 04/03/22 07:37 Blast Cells # 0.0 K/mm3 04/03/22 07:37 WBC Morphology Not Reportable 04/03/22 07:37 Hypersegmented Neuts Not Reportable 04/03/22 07:37 Hyposegmented Neuts Not Reportable 04/03/22 07:37 Hypogranular Neuts Not Reportable 04/03/22 07:37 Smudge Cells Not Reportable 04/03/22 07:37 Toxic Granulation Not Reportable 04/03/22 07:37 Toxic Vacuolation Not Reportable 04/03/22 07:37 Dohle Bodies Not Reportable 04/03/22 07:37 Pelger-Huet Anomaly Not Reportable 04/03/22 07:37 Noa Rods Not Reportable 04/03/22 07:37 Platelet Estimate Consistent w auto 04/03/22 07:37 Clumped Platelets Not Reportable 04/03/22 07:37 Plt Clumps, EDTA Not Reportable 04/03/22 07:37 Large Platelets Not Reportable 04/03/22 07:37 Giant Platelets Not Reportable 04/03/22 07:37 Platelet Satelliting Not Reportable 04/03/22 07:37 Plt Morphology Comment Not Reportable 04/03/22 07:37 RBC Morphology Not Reportable 04/03/22 07:37 Dimorphic RBCs Not Reportable 04/03/22 07:37 Polychromasia Few 04/03/22 07:37 Hypochromasia Not Reportable 04/03/22 07:37 Poikilocytosis Not Reportable 04/03/22 07:37 Anisocytosis 1+ 04/03/22 07:37 Microcytosis Not Reportable 04/03/22 07:37 Macrocytosis Not Reportable 04/03/22 07:37 Spherocytes Not Reportable 04/03/22 07:37 Pappenheimer Bodies Not Reportable 04/03/22 07:37 Sickle Cells Not Reportable 04/03/22 07:37 Target Cells Not Reportable 04/03/22 07:37 Tear Drop Cells Not Reportable 04/03/22 07:37 Ovalocytes Not Reportable 04/03/22 07:37 Helmet Cells Not Reportable 04/03/22 07:37 Harley-Mcgehee Bodies Not Reportable 04/03/22 07:37 [place] Rings Not Reportable 04/03/22 07:37 [place] Cells Not Reportable 04/03/22 07:37 Bite Cells Not Reportable 04/03/22 07:37 Crenated Cell Not Reportable 04/03/22 07:37 Elliptocytes Not Reportable 04/03/22 07:37 Acanthocytes (Spur) Not Reportable 04/03/22 07:37 Rouleaux Not Reportable 04/03/22 07:37 Hemoglobin C Crystals Not Reportable 04/03/22 07:37 Schistocytes Not Reportable 04/03/22 07:37 Malaria parasites Not Reportable 04/03/22 07:37 Cuco Bodies Not Reportable 04/03/22 07:37 Hem Pathologist Commnt No 04/03/22 07:37 PT 17.2 Sec. (12.2-14.9) H 04/02/22 09:35 INR 1.22 (0.87-1.13) H 04/02/22 09:35 APTT 29.5 Sec. (24.2-36.6) 04/02/22 09:35 D-Dimer 271.75 ng/mlDDU (0-234) H 04/02/22 13:35 D-Dimer 280.50 ng/mlDDU (0-234) H 04/02/22 13:35 ABG pH 7.447 pH Units (7.350-7.450) 04/02/22 Unknown ABG pCO2 40.4 mm Hg 04/02/22 Unknown ABG pO2 75.6 mm Hg (80.0-90.0) L 04/02/22 Unknown ABG HCO3 27.2 mmol/L (20.0-26.0) H 04/02/22 Unknown ABG O2 Saturation 96.9 % (95.0-99.0) 04/02/22 Unknown ABG O2 Content 15.1 (0.0-44) 04/02/22 Unknown ABG Base Excess 3.0 mmol/L (-2.0-3.0) 04/02/22 Unknown ABG Hemoglobin 11.5 gm/dl (14.0-18.0) L 04/02/22 Unknown ABG Carboxyhemoglobin 3.5 % (0.0-5.0) 04/02/22 Unknown ABG Methemoglobin 0.5 % (0.0-1.5) 04/02/22 Unknown Oxyhemoglobin 93.0 % (95.0-99.0) L 04/02/22 Unknown FiO2 36 % 04/02/22 Unknown Sodium 136 mmol/L (137-145) L 04/03/22 07:37 Potassium 3.8 mmol/L (3.6-5.0) 04/03/22 07:37 Chloride 96.2 mmol/L (98-107) L 04/03/22 07:37 Carbon Dioxide 30 mmol/L (22-30) 04/03/22 07:37 Anion Gap 14 mmol/L 04/03/22 07:37 BUN 21 mg/dL (9-20) H 04/03/22 07:37 Creatinine 1.1 mg/dL (0.8-1.3) 04/03/22 07:37 Estimated GFR > 60 ml/min 04/03/22 07:37 BUN/Creatinine Ratio 19 % 04/03/22 07:37 Glucose 121 mg/dL (75-100) H 04/03/22 07:37 Lactic Acid 0.70 mmol/L (0.7-2.0) 04/03/22 07:37 Uric Acid 10.5 mg/dL (3.5-7.6) H 04/02/22 16:22 Calcium 8.5 mg/dL (8.4-10.2) 04/03/22 07:37 Total Bilirubin 1.00 mg/dL (0.1-1.2) 04/02/22 09:35 AST 11 units/L (5-40) 04/02/22 09:35 ALT 9 units/L (7-56) 04/02/22 09:35 Alkaline Phosphatase 109 units/L (35-129) 04/02/22 09:35 Lactate Dehydrogenase 423 units/L (91-180) H 04/02/22 13:35 Troponin T < 0.010 ng/mL (0.00-0.029) 04/02/22 09:35 C-Reactive Protein 14.40 mg/dL (0.00-1.30) H 04/02/22 13:35 NT-Pro-B Natriuret Pep 1445 pg/mL (0-450) H 04/02/22 09:35 Total Protein 5.7 g/dL (6.3-8.2) L 04/02/22 09:35 Albumin 3.9 g/dL (3.9-5) 04/02/22 09:35 Albumin/Globulin Ratio 2.2 % 04/02/22 09:35 Procalcitonin 6.75 ng/mL (<0.15) 04/02/22 13:35 Urine Color Yellow (Yellow) 04/02/22 12:14 Urine Turbidity Clear (Clear) 04/02/22 12:14 Urine pH 5.0 (5.0-7.0) 04/02/22 12:14 Ur Specific [place] 1.012 (1.003-1.030) 04/02/22 12:14 Urine Protein <15 mg/dl mg/dL (Negative) 04/02/22 12:14 Urine Glucose (UA) Neg mg/dL (Negative) 04/02/22 12:14 Urine Ketones Neg mg/dL (Negative) 04/02/22 12:14 Urine Blood Neg (Negative) 04/02/22 12:14 Urine Nitrite Neg (Negative) 04/02/22 12:14 Urine Bilirubin Neg (Negative) 04/02/22 12:14 Urine Urobilinogen < 2 mg/dL (<2.0) 04/02/22 12:14 Ur Leukocyte Esterase Neg (Negative) 04/02/22 12:14 Urine WBC (Auto) < 1.0 /HPF (0.0-6.0) 04/02/22 12:14 Urine RBC (Auto) < 1.0 /HPF (0.0-6.0) 04/02/22 12:14 U Epithel Cells (Auto) 1.0 /HPF (0-13.0) 04/02/22 12:14 Urine Bacteria (Auto) 1+ /HPF (Negative) 04/02/22 12:14 Hyaline Casts 1 /LPF 04/02/22 12:14 Granular Casts 7 /LPF 04/02/22 12:14 Urine Mucus Few /HPF 04/02/22 12:14 Nasal Screen MRSA (PCR) Negative (Negative) 04/03/22 23:57 SARS-CoV-2 (PCR) Negative (Negative) 04/02/22 12:14 Blood Type O POSITIVE 04/02/22 16:22 Antibody Screen Negative 04/02/22 16:22 Microbiology: Microbiology 04/02/22 09:35 Peripheral/Venous Blood Culture - Preliminary NO GROWTH AFTER 24 HOURS 04/02/22 09:35 Peripheral/Venous Blood Culture - Preliminary NO GROWTH AFTER 24 HOURS Jones/IV: Voiding Method Urinal Active Medications - Current Medications Current Medications: Generic Name Dose Route Start Last Admin Trade Name Freq PRN Reason Stop Dose Admin Acetaminophen 650 mg 04/02/22 15:00 04/03/22 13:56 Acetaminophen 325 Mg Tab PO 650 mg Q4H PRN Administration Pain MILD(1-3)/Fever >100.5/ARENAS Albuterol 2.5 mg 04/02/22 16:00 Albuterol 2.5 Mg/3 Ml Nebu IH Q4HRT PRN Shortness Of Breath Allopurinol 300 mg 04/03/22 10:00 04/03/22 10:37 Allopurinol 300 Mg Tab PO 300 mg QDAY MICHELLE Administration Apixaban 5 mg 04/02/22 23:45 04/03/22 10:37 Apixaban 5 Mg Tab PO 5 mg Q12HR MICHELLE Administration Furosemide 80 mg 04/03/22 08:30 04/03/22 08:45 Furosemide 40 Mg Tab PO 80 mg BID@0800,2000 MICHELLE Administration Gabapentin 100 mg 04/02/22 22:00 04/03/22 13:56 Gabapentin 100 Mg Cap PO 100 mg Q8HR MICHELLE Administration Hydromorphone HCl 0.25 mg 04/02/22 15:00 Hydromorphone 0.5 Mg/0.5 Ml Inj IV Q4H PRN Pain, Moderate (4-6) Hydromorphone HCl 0.5 mg 04/02/22 15:00 Hydromorphone 0.5 Mg/0.5 Ml Inj IV Q13H PRN Pain , Severe (7-10) Ceftriaxone Sodium 2 gm in 100 mls @ 200 mls/hr 04/03/22 12:00 04/03/22 12:14 Rocephin/Ns 2 Gm/100 Ml IV 200 mls/hr Q12HR MICHELLE Administration Protocol Linezolid 600 mg 04/03/22 12:00 04/03/22 15:34 Linezolid 600 Mg Tab PO 600 mg Q12HR MICHELLE Administration Protocol Nicotine 14 mg 04/03/22 10:00 04/03/22 10:36 Nicotine 14 Mg/24 Hr Patch TD 14 mg QDAY MICHELLE Administration Ondansetron HCl 4 mg 04/02/22 15:00 Ondansetron 4 Mg/2 Ml Inj IV Q8H PRN Nausea And Vomiting Oxycodone/Acetaminophen 1 tab 04/02/22 15:00 Oxycodone /Acetaminophen 5-325mg Tab PO Q6H PRN Pain, Moderate (4-6) Potassium Chloride 20 meq 04/03/22 10:00 04/03/22 10:38 Potassium Chloride Er 20 Meq Tab PO 20 meq QDAY MICHELLE Administration Sodium Chloride 10 ml 04/02/22 22:00 04/03/22 10:37 Sodium Chloride 0.9% 10 Ml Flush Syringe IV 10 ml BID MICHELLE Administration Sodium Chloride 10 ml 04/02/22 15:00 Sodium Chloride 0.9% 10 Ml Flush Syringe IV PRN PRN LINE FLUSH Spironolactone 50 mg 04/03/22 10:00 04/03/22 10:44 Spironolactone 50 Mg Tab PO 50 mg QDAY MICHELLE Administration
[2022-04-04 05:22] LABS: Hematocrit 36.2 % (35.5-45.6); Hemoglobin 10.9 gm/dl (11.8-15.2); Mean Corpuscular HGB Conc 30 % (32-34); Mean Corpuscular Volume 84 fl (84-94); Platelet Count 161 K/mm3 (140-440); Red Cell Distribution Width 22.5 % (13.2-15.2)
[2022-04-04] MEDS: GABAPENTIN 100 MG CAP PO SCH ×3 (05:54→21:33)
[2022-04-04 06:11] LABS: Alanine Aminotransferase 8 units/L (7-56); Albumin 3.9 g/dL (3.9-5); BUN/Creatinine Ratio 18; Blood Urea Nitrogen 20 mg/dL (9-20); Calcium 8.8 mg/dL (8.4-10.2); Hemolysis Index 18
[2022-04-04 06:12] LABS: Anisocytosis 1+; Basophils % (Manual) 0 % (0.0-1.8); Hypochromasia 1+; Platelet Estimate Consistent w Auto; Total Cells Counted 100
[2022-04-04] MEDS: FUROSEMIDE 40 MG TAB PO SCH ×2 (08:00→21:33)
[2022-04-04] MEDS: LINEZOLID 600 MG TAB PO SCH ×2 (10:00→21:34)
[2022-04-04] MEDS: cefTRIAXone/NS 2 GM/100 ML 2 GM/100 ML BAG IV SCH ×2 (10:07→21:34)
[2022-04-04] MEDS: POTASSIUM CHLORIDE ER 20 MEQ TAB PO SCH (10:08)
[2022-04-04] MEDS: NICOTINE 14 MG/24 HR PATCH TD SCH (10:08)
[2022-04-04] MEDS: APIXABAN 5 MG TAB PO SCH ×2 (10:09→21:32)
[2022-04-04] MEDS: allopurinoL 300 MG TAB PO SCH (10:09)
[2022-04-04] MEDS: SPIRONOLACTONE 50 MG TAB PO SCH (10:09)
--- NOTE | 2022-04-04 13:25 | Progress Note ---
Assessment and Plan Cultures: 04/02/2022 blood culture: no growth A/P: 31-year-old male with extreme obesity, CHF, obesity hypoventilation syndrome, diabetes, nicotine dependence, lymphedema was admitted to the hospital with body ache, fever, chills and dry cough: #Sepsis, leukemoid reaction: Does seem to have some underlying bone marrow process, chronic leukocytosis with superimposed infection, ? panniculitis/ce llulitis. Improving with antibiotics. Hematology oncology following. CRP 14.4, elevated lactate, procalcitonin 6.7. #Morbid obesity class III #Mild DIXIE: Creatinine better. #CHF #Chronic lymphedema Recs: continue IV Ceftriaxone 2 gm q12 hrs, higher dose due to morbid obesity + Linezolid f/u blood cultures monitor CBC, if continued improvement, from ID standpoint can discharge on PO Keflex 1 g QID + PO linezolid 600 mg BID for 5 days Kyra Lazcano MD, FACP, [facility] O: [phone] F: [phone] C: [phone] Subjective Date of service: 04/04/22 Interval history: No fever. No complaints. Breathing is better. Objective - Exam Narrative Exam: Physical Exam: Constitutional: Alert, cooperative. No acute distress. Severe obesity Head, Ears, Nose: Normocephalic, atraumatic. External ears, nose normal Eyes: Conjunctivae/corneas clear. No icterus. No ptosis. Neck: Supple, no meningeal signs Cardiovascular: S1, S2 + Respiratory: Good air entry, clear to auscultation bilaterally GI: Obese with large pannus, no tenderness Musculoskeletal: Bilateral lower extremity with severe chronic lymphedema, dry skin, stasis dermatitis. Skin: No rash or abscess Hem/Lymphatic: No palpable cervical or supraclavicular nodes. No lymphangitis Psych: Mood ok. Affect normal Neurological: Awake, alert, oriented. No gross abnormality - Constitutional Vitals: Vital Signs Temp Pulse Resp BP Pulse Ox 98.2 F 63 20 108/43 96 04/04/22 05:44 04/04/22 05:44 04/04/22 05:44 04/04/22 05:44 04/04/22 10:00 Temperature -Last 24 Hours Temperature 98.2 F Temperature 98.0 F Temperature 98.3 F - Labs CBC & Chem 7: 04/04/22 04:42 04/04/22 04:42 Labs: Abnormal lab results 04/04/22 04/04/22 Range/Units 04:42 04:42 WBC 27.4 H (4.5-11.0) K/mm3 Hgb 10.9 L (11.8-15.2) gm/dl MCH 25 L (28-32) pg MCHC 30 L (32-34) % RDW 22.5 H (13.2-15.2) % Seg Neuts % (Manual) 76.0 H (40.0-70.0) % Lymphocytes % (Manual) 11.0 L (13.4-35.0) % Monocytes % (Manual) 12.0 H (0.0-7.3) % Seg Neutrophils # Man 20.8 H (1.8-7.7) K/mm3 Monocytes # (Manual) 3.3 H (0.0-0.8) K/mm3 Chloride 96.1 L (98-107) mmol/L Glucose 128 H (75-100) mg/dL Total Protein 5.8 L (6.3-8.2) g/dL
--- NOTE | 2022-04-04 19:47 | Progress Note ---
Assessment and Plan Assessment and plan: 31 YO Male with Super Morbid Obesity, BMI 77, diastolic CHF, Chronic respiratory Failure on 2L Home Oxygen, Obesity Hypoventilation Syndrome, DM, Asthma, ongoing tobacco smoking, chronic lymphedema, GERD, DVT on therapeutic anticoagulation with Eliquis is independent of ADLs does not need any walking, lives with his mother aid presents to ED for sudden onset body aches, fever, chills, dry cough, weakness, pain to his lower abdomen over the past 3 days with persistently worsening symptoms and is concerned about having COVID-19 infection. Patient acknowledges fever to 101.2 F, dry cough. Patient called EMS to go to ED. Patient found to have a pulse oximetry of 88% on room air which is consistent with acute hypoxemic respiratory failure. Patient also found to have sepsis with lactic acidosis and leukocytosis. Patient admitted to medical floor and initiated on coronavirus protocol as well as sepsis protocol . Patient found to have significant leukocytosis. Hematology service consulted in ED prior to my evaluation. Patient denies chest pain, palpitations, , skin rash, or recent ill contacts, or known exposure to COVID-19. Prior admission on 02/14/2022 reviewed. (1) Sepsis Current Visit: Yes Status: Acute Plan to address problem: Presented with fever, malaise chills, severe leukocytosis, WBC 69, lactic acid 2.7, creatinine 1.5, elevated procalcitonin meeting criteria for sepsis. Etiology is unclear. Tested negative for COVID. No focal symptoms other than dry cough. No changes of intertrigo or panniculitis under abdominal wall folds. Blood cultures negative to date. Source of sepsis remains unclear. Placed on sepsis protocol: Chest x-ray, CBC, CMP, supplemental oxygen, pulse oximetry, IV antibiotic therapy, monitor fluid balance, serial lactic acid level, maintain mean arterial pressure greater than equal 65, blood culture. Patient feeling much improvement of his presenting symptoms. Fever, chills, malaise unresolved. Leukocytosis improving. Started empiric antibiotic therapy with Zosyn changed to cefepime and added Zyvox on 04/03 by ID. (2) rule out 2019 novel coronavirus infection Current Visit: Yes Status: Acute Plan to address problem: (3) Obesity hypoventilation syndrome Current Visit: Yes Status: Acute Plan to address problem: Balanced diet, increase physical activity discharge, outpatient pulmonary follow-up for sleep study. (4) CHF (congestive heart failure) Current Visit: No Status: Chronic Qualifiers: Heart failure chronicity: acute Plan to address problem: Strict I/O, monitoring output every shift, daily weight, afterload reduction, diuretic therapy with Lasix, blood pressure control, supplemental oxygen, pulse oximetry. (5) GERD (gastroesophageal reflux disease) Current Visit: No Status: Chronic Qualifiers: Esophagitis presence: without esophagitis Qualified Code(s): K21.9 - Gastr o-esophageal reflux disease without esophagitis Plan to address problem: PPI therapy, supportive care (6) Lymphedema, chronic due to severe obesity, stable Current Visit: No Status: Chronic Plan to address problem: Chronic, supportive care. (7) T2DM (type 2 diabetes mellitus) Current Visit: No Status: Chronic Qualifiers: Diabetes mellitus long term care social worker insulin use: unspecified mcc insulin use status Plan to address problem: Consistent carbohydrate diet, Accu-Chek, insulin protocol, hypoglycemia protocol as clinically indicated. (8) Leukocytosis, severe Current Visit: Yes Status: Acute Plan to address problem: Initial WBC 69 and today 27, rapidly improving suggestive of leukemoid reaction. Oncology service consulted. Unable to perform CT abdomen due to BMI 77. Clinical improved. Oncology agrees that no indication for urgent CT study, ho wever needs to be followed by oncology after discharge. (9) Acute and chronic respiratory failure Current Visit: Yes Status: Acute Qualifiers: Respiratory failure complication: hypoxia Qualified Code(s): J96.21 - Acute and chronic respiratory failure with hypoxia Plan to address problem: Supplemental oxygen, pulse oximetry, nebulizer therapy, chest x-ray, noninvasive positive pressure ventilation as clinically indicated. (10) DIXIE, resolved DVT prophylaxis Current Visit: No Status: Acute Plan to address problem: SCD to bilateral lower extremities while in bed, continue therapeutic anticoagulation Advance care planning Current Visit: No Status: Acute Plan to address problem: Disease education conducted, care plan discussed, diagnoses discussed, prognosis discussed, patient knowledges understanding and agreement care plan, Disposition: Clinically quickly improved, ID recommends to continue current antibiotic therapy with unknown source of sepsis Discussed with the patient, nursing staff and oncology service History Interval history: No fever to the last 24 hours. Patient feels back to his normal. No chills. Dry cough improved. No acute GI symptoms. No skin rash. Leukocytosis Improving. Blood culture negative. Remains on Rocephin and Zyvox as per ID recommendations. Hospitalist Physical - Constitutional Vitals: Temp Pulse Resp BP Pulse Ox 98.9 F 78 24 118/52 93 04/04/22 17:20 04/04/22 17:20 04/04/22 17:20 04/04/22 17:20 04/04/22 17:20 General appearance: Present: no acute distress, obese (Super obese, BMI 77) - EENT Eyes: Present: PERRL, EOM intact ENT: hearing intact, clear oral mucosa - Neck Neck: Present: supple - Respiratory Respiratory effort: normal Respiratory: bilateral: CTA - Cardiovascular Rhythm: regular - Extremities Extremity abnormal: edema (Chronic stable bilateral lymphedema) - Abdominal General gastrointestinal: soft, non-tender, normal bowel sounds - Integumentary Integumentary: Present: rash (Chronic stasis changes in lower extremities.) - Psychiatric Psychiatric: appropriate mood/affect - Neurologic Neurologic: no focal deficits HEART Score - HEART Score Troponin: Troponin T < 0.010 ng/mL (0.00-0.029) 04/02/22 09:35 Results - Labs CBC & Chem 7: 04/04/22 04:42 04/04/22 04:42 Labs: Laboratory Last Values WBC 27.4 K/mm3 (4.5-11.0) H 04/04/22 04:42 RBC 4.30 M/mm3 (3.65-5.03) 04/04/22 04:42 Hgb 10.9 gm/dl (11.8-15.2) L 04/04/22 04:42 Hct 36.2 % (35.5-45.6) 04/04/22 04:42 MCV 84 fl (84-94) 04/04/22 04:42 MCH 25 pg (28-32) L 04/04/22 04:42 MCHC 30 % (32-34) L 04/04/22 04:42 RDW 22.5 % (13.2-15.2) H 04/04/22 04:42 Plt Count 161 K/mm3 (140-440) 04/04/22 04:42 Add Manual Diff Complete 04/04/22 04:42 Total Counted 100 04/04/22 04:42 Seg Neutrophils % Machine Candle Molder 04/02/22 09:35 Seg Neuts % (Manual) 76.0 % (40.0-70.0) H 04/04/22 04:42 Band Neutrophils % 0 % 04/04/22 04:42 Lymphocytes % (Manual) 11.0 % (13.4-35.0) L 04/04/22 04:42 Reactive Lymphs % (Man) 0 % 04/04/22 04:42 Monocytes % (Manual) 12.0 % (0.0-7.3) H 04/04/22 04:42 Eosinophils % (Manual) 1.0 % (0.0-4.3) 04/04/22 04:42 Basophils % (Manual) 0 % (0.0-1.8) 04/04/22 04:42 Metamyelocytes % 0 % 04/04/22 04:42 Myelocytes % 0 % 04/04/22 04:42 Promyelocytes % 0 % 04/04/22 04:42 Blast Cells % 0 % 04/04/22 04:42 Nucleated RBC % Not Reportable 04/04/22 04:42 Seg Neutrophils # Man 20.8 K/mm3 (1.8-7.7) H 04/04/22 04:42 Band Neutrophils # 0.0 K/mm3 04/04/22 04:42 Lymphocytes # (Manual) 3.0 K/mm3 (1.2-5.4) 04/04/22 04:42 Abs React Lymphs (Man) 0.0 K/mm3 04/04/22 04:42 Monocytes # (Manual) 3.3 K/mm3 (0.0-0.8) H 04/04/22 04:42 Eosinophils # (Manual) 0.3 K/mm3 (0.0-0.4) 04/04/22 04:42 Basophils # (Manual) 0.0 K/mm3 (0.0-0.1) 04/04/22 04:42 Metamyelocytes # 0.0 K/mm3 04/04/22 04:42 Myelocytes # 0.0 K/mm3 04/04/22 04:42 Promyelocytes # 0.0 K/mm3 04/04/22 04:42 Blast Cells # 0.0 K/mm3 04/04/22 04:42 WBC Morphology Not Reportable 04/04/22 04:42 Hypersegmented Neuts Not Reportable 04/04/22 04:42 Hyposegmented Neuts Not Reportable 04/04/22 04:42 Hypogranular Neuts Not Reportable 04/04/22 04:42 Smudge Cells Not Reportable 04/04/22 04:42 Toxic Granulation Not Reportable 04/04/22 04:42 Toxic Vacuolation Not Reportable 04/04/22 04:42 Dohle Bodies Not Reportable 04/04/22 04:42 Pelger-Huet Anomaly Not Reportable 04/04/22 04:42 Noa Rods Not Reportable 04/04/22 04:42 Platelet Estimate Consistent w auto 04/04/22 04:42 Clumped Platelets Not Reportable 04/04/22 04:42 Plt Clumps, EDTA Not Reportable 04/04/22 04:42 Large Platelets Not Reportable 04/04/22 04:42 Giant Platelets Not Reportable 04/04/22 04:42 Platelet Satelliting Not Reportable 04/04/22 04:42 Plt Morphology Comment Not Reportable 04/04/22 04:42 RBC Morphology Not Reportable 04/04/22 04:42 Dimorphic RBCs Not Reportable 04/04/22 04:42 Polychromasia Not Reportable 04/04/22 04:42 Hypochromasia 1+ 04/04/22 04:42 Poikilocytosis Not Reportable 04/04/22 04:42 Anisocytosis 1+ 04/04/22 04:42 Microcytosis Not Reportable 04/04/22 04:42 Macrocytosis Not Reportable 04/04/22 04:42 Spherocytes Not Reportable 04/04/22 04:42 Pappenheimer Bodies Not Reportable 04/04/22 04:42 Sickle Cells Not Reportable 04/04/22 04:42 Target Cells Not Reportable 04/04/22 04:42 Tear Drop Cells Not Reportable 04/04/22 04:42 Ovalocytes Not Reportable 04/04/22 04:42 Helmet Cells Not Reportable 04/04/22 04:42 [place] Bodies Not Reportable 04/04/22 04:42 Dent Rings Not Reportable 04/04/22 04:42 [place] Cells Not Reportable 04/04/22 04:42 Bite Cells Not Reportable 04/04/22 04:42 Crenated Cell Not Reportable 04/04/22 04:42 Elliptocytes Not Reportable 04/04/22 04:42 Acanthocytes (Spur) Not Reportable 04/04/22 04:42 Rouleaux Not Reportable 04/04/22 04:42 Hemoglobin C Crystals Not Reportable 04/04/22 04:42 Schistocytes Not Reportable 04/04/22 04:42 Malaria parasites Not Reportable 04/04/22 04:42 Cuco Bodies Not Reportable 04/04/22 04:42 Hem Pathologist Commnt No 04/04/22 04:42 PT 17.2 Sec. (12.2-14.9) H 04/02/22 09:35 INR 1.22 (0.87-1.13) H 04/02/22 09:35 APTT 29.5 Sec. (24.2-36.6) 04/02/22 09:35 D-Dimer 271.75 ng/mlDDU (0-234) H 04/02/22 13:35 D-Dimer 280.50 ng/mlDDU (0-234) H 04/02/22 13:35 ABG pH 7.447 pH Units (7.350-7.450) 04/02/22 Unknown ABG pCO2 40.4 mm Hg 04/02/22 Unknown ABG pO2 75.6 mm Hg (80.0-90.0) L 04/02/22 Unknown ABG HCO3 27.2 mmol/L (20.0-26.0) H 04/02/22 Unknown ABG O2 Saturation 96.9 % (95.0-99.0) 04/02/22 Unknown ABG O2 Content 15.1 (0.0-44) 04/02/22 Unknown ABG Base Excess 3.0 mmol/L (-2.0-3.0) 04/02/22 Unknown ABG Hemoglobin 11.5 gm/dl (14.0-18.0) L 04/02/22 Unknown ABG Carboxyhemoglobin 3.5 % (0.0-5.0) 04/02/22 Unknown ABG Methemoglobin 0.5 % (0.0-1.5) 04/02/22 Unknown Oxyhemoglobin 93.0 % (95.0-99.0) L 04/02/22 Unknown FiO2 36 % 04/02/22 Unknown Sodium 138 mmol/L (137-145) 04/04/22 04:42 Potassium 4.1 mmol/L (3.6-5.0) 04/04/22 04:42 Chloride 96.1 mmol/L (98-107) L 04/04/22 04:42 Carbon Dioxide 30 mmol/L (22-30) 04/04/22 04:42 Anion Gap 16 mmol/L 04/04/22 04:42 BUN 20 mg/dL (9-20) 04/04/22 04:42 Creatinine 1.1 mg/dL (0.8-1.3) 04/04/22 04:42 Estimated GFR > 60 ml/min 04/04/22 04:42 BUN/Creatinine Ratio 18 % 04/04/22 04:42 Glucose 128 mg/dL (75-100) H 04/04/22 04:42 POC Glucose 121 mg/dL (70-105) H 04/04/22 11:54 Lactic Acid 0.70 mmol/L (0.7-2.0) 04/03/22 07:37 Uric Acid 10.5 mg/dL (3.5-7.6) H 04/02/22 16:22 Calcium 8.8 mg/dL (8.4-10.2) 04/04/22 04:42 Total Bilirubin 0.40 mg/dL (0.1-1.2) 04/04/22 04:42 AST 9 units/L (5-40) 04/04/22 04:42 ALT 8 units/L (7-56) 04/04/22 04:42 Alkaline Phosphatase 104 units/L (35-129) 04/04/22 04:42 Lactate Dehydrogenase 423 units/L (91-180) H 04/02/22 13:35 Troponin T < 0.010 ng/mL (0.00-0.029) 04/02/22 09:35 C-Reactive Protein 14.40 mg/dL (0.00-1.30) H 04/02/22 13:35 NT-Pro-B Natriuret Pep 1445 pg/mL (0-450) H 04/02/22 09:35 Total Protein 5.8 g/dL (6.3-8.2) L 04/04/22 04:42 Albumin 3.9 g/dL (3.9-5) 04/04/22 04:42 Albumin/Globulin Ratio 2.1 % 04/04/22 04:42 Procalcitonin 6.75 ng/mL (<0.15) 04/02/22 13:35 Urine Color Yellow (Yellow) 04/02/22 12:14 Urine Turbidity Clear (Clear) 04/02/22 12:14 Urine pH 5.0 (5.0-7.0) 04/02/22 12:14 Ur Specific Sellers 1.012 (1.003-1.030) 04/02/22 12:14 Urine Protein <15 mg/dl mg/dL (Negative) 04/02/22 12:14 Urine Glucose (UA) Neg mg/dL (Negative) 04/02/22 12:14 Urine Ketones Neg mg/dL (Negative) 04/02/22 12:14 Urine Blood Neg (Negative) 04/02/22 12:14 Urine Nitrite Neg (Negative) 04/02/22 12:14 Urine Bilirubin Neg (Negative) 04/02/22 12:14 Urine Urobilinogen < 2 mg/dL (<2.0) 04/02/22 12:14 Ur Leukocyte Esterase Neg (Negative) 04/02/22 12:14 Urine WBC (Auto) < 1.0 /HPF (0.0-6.0) 04/02/22 12:14 Urine RBC (Auto) < 1.0 /HPF (0.0-6.0) 04/02/22 12:14 U Epithel Cells (Auto) 1.0 /HPF (0-13.0) 04/02/22 12:14 Urine Bacteria (Auto) 1+ /HPF (Negative) 04/02/22 12:14 Hyaline Casts 1 /LPF 04/02/22 12:14 Granular Casts 7 /LPF 04/02/22 12:14 Urine Mucus Few /HPF 04/02/22 12:14 Nasal Screen MRSA (PCR) Negative (Negative) 04/03/22 23:57 SARS-CoV-2 (PCR) Negative (Negative) 04/02/22 12:14 Blood Type O POSITIVE 04/02/22 16:22 Antibody Screen Negative 04/02/22 16:22 Microbiology: Microbiology 04/02/22 09:35 Peripheral/Venous Blood Culture - Preliminary NO GROWTH AFTER 48 HOURS 04/02/22 09:35 Peripheral/Venous Blood Culture - Preliminary NO GROWTH AFTER 48 HOURS Jones/IV: Voiding Method Urinal Active Medications - Current Medications Current Medications: Generic Name Dose Route Start Last Admin Trade Name Freq PRN Reason Stop Dose Admin Acetaminophen 650 mg 04/02/22 15:00 04/03/22 13:56 Acetaminophen 325 Mg Tab PO 650 mg Q4H PRN Administration Pain MILD(1-3)/Fever >100.5/ARENAS Albuterol 2.5 mg 04/02/22 16:00 Albuterol 2.5 Mg/3 Ml Nebu IH Q4HRT PRN Shortness Of Breath Allopurinol 300 mg 04/03/22 10:00 04/04/22 10:09 Allopurinol 300 Mg Tab PO 300 mg QDAY MICHELLE Administration Apixaban 5 mg 04/02/22 23:45 04/04/22 10:09 Apixaban 5 Mg Tab PO 5 mg Q12HR MICHELLE Administration Furosemide 80 mg 04/03/22 08:30 04/04/22 08:00 Furosemide 40 Mg Tab PO 80 mg BID@0800,2000 MICHELLE Administration Gabapentin 100 mg 04/02/22 22:00 04/04/22 13:49 Gabapentin 100 Mg Cap PO 100 mg Q8HR MICHELLE Administration Ceftriaxone Sodium 2 gm in 100 mls @ 200 mls/hr 04/03/22 12:00 04/04/22 10:07 Rocephin/Ns 2 Gm/100 Ml IV 200 mls/hr Q12HR MICHELLE Administration Protocol Linezolid 600 mg 04/03/22 12:00 04/04/22 10:00 Linezolid 600 Mg Tab PO 600 mg Q12HR MICHELLE Administration Protocol Nicotine 14 mg 04/03/22 10:00 04/04/22 10:08 Nicotine 14 Mg/24 Hr Patch TD 14 mg QDAY MICHELLE Administration Ondansetron HCl 4 mg 04/02/22 15:00 Ondansetron 4 Mg/2 Ml Inj IV Q8H PRN Nausea And Vomiting Potassium Chloride 20 meq 04/03/22 10:00 04/04/22 10:08 Potassium Chloride Er 20 Meq Tab PO 20 meq QDAY MICHELLE Administration Sodium Chloride 10 ml 04/02/22 22:00 04/04/22 10:08 Sodium Chloride 0.9% 10 Ml Flush Syringe IV 10 ml BID MICHELLE Administration Sodium Chloride 10 ml 04/02/22 15:00 Sodium Chloride 0.9% 10 Ml Flush Syringe IV PRN PRN LINE FLUSH Spironolactone 50 mg 04/03/22 10:00 04/04/22 10:09 Spironolactone 50 Mg Tab PO 50 mg QDAY MICHELLE Administration
[2022-04-05] MEDS: GABAPENTIN 100 MG CAP PO SCH ×3 (05:46→21:19)
[2022-04-05] MEDS: FUROSEMIDE 40 MG TAB PO SCH ×2 (08:00→21:18)
--- NOTE | 2022-04-05 09:24 | Progress Note ---
Assessment and Plan Cultures: 04/02/2022 blood culture: no growth A/P: 31-year-old male with extreme obesity, CHF, obesity hypoventilation syndrome, diabetes, nicotine dependence, lymphedema was admitted to the hospital with body ache, fever, chills and dry cough: #Sepsis, leukemoid reaction: Does seem to have some underlying bone marrow process, chronic leukocytosis with superimposed infection, ? panniculitis/ce llulitis. Improving with antibiotics. Hematology oncology following. CRP 14.4, elevated lactate, procalcitonin 6.7. #Morbid obesity class III #Mild DIXIE: Creatinine better. #CHF #Chronic lymphedema Recs: -from ID standpoint can discharge on PO Keflex 1 g QID + PO linezolid 600 mg BID for 5 days -hematology follow up for leukemoid reaction Kyra Lazcano MD, FACP, [facility] O: [phone] F: [phone] C: [phone] Subjective Date of service: 04/05/22 Interval history: No fever. No complaints. Feels well. Objective - Exam Narrative Exam: Physical Exam: Constitutional: Alert, cooperative. No acute distress. Severe obesity Head, Ears, Nose: Normocephalic, atraumatic. External ears, nose normal Eyes: Conjunctivae/corneas clear. No icterus. No ptosis. Neck: Supple, no meningeal signs Cardiovascular: S1, S2 + Respiratory: Good air entry, clear to auscultation bilaterally GI: Obese with large pannus, no tenderness Musculoskeletal: Bilateral lower extremity with severe chronic lymphedema, dry skin, stasis dermatitis. Skin: No rash or abscess Hem/Lymphatic: No palpable cervical or supraclavicular nodes. No lymphangitis Psych: Mood ok. Affect normal Neurological: Awake, alert, oriented. No gross abnormality - Constitutional Vitals: Vital Signs Temp Pulse Resp BP Pulse Ox 97.2 F L 75 18 118/58 96 04/05/22 04:27 04/05/22 04:27 04/05/22 04:27 04/05/22 04:27 04/05/22 04:27 Temperature -Last 24 Hours Temperature 97.2 F Temperature 98.4 F Temperature 98.9 F Temperature 98.2 F - Labs CBC & Chem 7: 04/04/22 04:42 04/04/22 04:42 Labs: Abnormal lab results 04/04/22 04/04/22 04/05/22 Range/Units 07:58 11:54 07:57 POC Glucose 114 H 121 H 118 H (70-105) mg/dL
[2022-04-05] MEDS: LINEZOLID 600 MG TAB PO SCH ×2 (09:30→21:18)
[2022-04-05] MEDS: NICOTINE 14 MG/24 HR PATCH TD SCH (09:30)
[2022-04-05] MEDS: POTASSIUM CHLORIDE ER 20 MEQ TAB PO SCH (09:31)
[2022-04-05] MEDS: allopurinoL 300 MG TAB PO SCH (09:31)
[2022-04-05] MEDS: cefTRIAXone/NS 2 GM/100 ML 2 GM/100 ML BAG IV SCH (09:31)
[2022-04-05] MEDS: APIXABAN 5 MG TAB PO SCH (09:31)
[2022-04-05] MEDS: SPIRONOLACTONE 50 MG TAB PO SCH (09:31)
[2022-04-05 09:32] LABS: Hematocrit 37.1 % (35.5-45.6); Hemoglobin 11.4 gm/dl (11.8-15.2); Mean Corpuscular HGB Conc 31 % (32-34); Mean Corpuscular Volume 83 fl (84-94); Platelet Count 164 K/mm3 (140-440); Red Blood Count 4.45 M/mm3 (3.65-5.03)
--- NOTE | 2022-04-05 09:50 | Hem/Onc Progress Note ---
Subjective Date of service: 04/05/22 Interval history: Heme Progress Note CPT 28907 Dx Leukocytosis 31 yo morbidly obese male with complaints of fever, weakness, and abdominal pain Pmhx of diastolic CHF, chronic respiratory failure on 2L home oxygen, morbid obesity, hypoventilation syndrome, DM, asthma, nicotine dependence, lymphedema, and GERD. Lower abdominal pain, fever to 103.2 F, abdominal redness, tenderness, and swelling. Hematology following leukocytosis. ASSESSMENT: Leukocytosis , improving with IV antibiotics Infection +/- myeloproliferative disorder CML is possible with elevated neutrophils, 1.5% metas PLAN: Follow flow cytometry, BCR-ABL Recommend CT chest/abd/pel, evaluate for splenomegaly/ malignancy Unable to complete CT's at [facility] due to weight (223kg)-- Recommend transfer vs outpatient chest/abd/pel CT Recommend outpatient Hematology follow up. Case d/w Dr. Josue Patel. Laboratory Last Values WBC 24.3 K/mm3 (4.5-11.0) H 04/05/22 08:02 Hgb 11.4 gm/dl (11.8-15.2) L 04/05/22 08:02 Hct 37.1 % (35.5-45.6) 04/05/22 08:02 MCV 83 fl (84-94) L 04/05/22 08:02 Plt Count 164 K/mm3 (140-440) 04/05/22 08:02 Seg Neuts % (Manual) 76.0 % (40.0-70.0) H 04/04/22 04:42 Lymphocytes % (Manual) 11.0 % (13.4-35.0) L 04/04/22 04:42 Monocytes % (Manual) 12.0 % (0.0-7.3) H 04/04/22 04:42 Seg Neutrophils # Man 20.8 K/mm3 (1.8-7.7) H 04/04/22 04:42 Monocytes # (Manual) 3.3 K/mm3 (0.0-0.8) H 04/04/22 04:42 PT 17.2 Sec. (12.2-14.9) H 04/02/22 09:35 INR 1.22 (0.87-1.13) H 04/02/22 09:35 APTT 29.5 Sec. (24.2-36.6) 04/02/22 09:35 D-Dimer 271.75 ng/mlDDU (0-234) H 04/02/22 13:35 D-Dimer 280.50 ng/mlDDU (0-234) H 04/02/22 13:35 Creatinine 1.1 mg/dL (0.8-1.3) 04/04/22 04:42 Total Bilirubin 0.40 mg/dL (0.1-1.2) 04/04/22 04:42 AST 9 units/L (5-40) 04/04/22 04:42 ALT 8 units/L (7-56) 04/04/22 04:42 Alkaline Phosphatase 104 units/L (35-129) 04/04/22 04:42 Lactate Dehydrogenase 423 units/L (91-180) H 04/02/22 13:35 Objective - Constitutional Vitals: Last Vital Signs Temp 97.2 F L 04/05/22 04:27 Pulse 75 04/05/22 04:27 Resp 18 04/05/22 04:27 BP 118/58 04/05/22 04:27 Pulse Ox 96 04/05/22 04:27 - Labs Lab Results: Laboratory Results - last 24 hr 04/04/22 04/04/22 04/05/22 07:58 11:54 07:57 WBC RBC Hgb Hct MCV MCH MCHC RDW Plt Count POC Glucose 114 H 121 H 118 H 04/05/22 08:02 WBC 24.3 H RBC 4.45 Hgb 11.4 L Hct 37.1 MCV 83 L MCH 26 L MCHC 31 L RDW 22.0 H Plt Count 164 POC Glucose Medications & Allergies - Medications Allergies/Adverse Reactions: Allergies clindamycin Allergy (Verified 02/15/22 10:14) Stearns/Rash doxycycline Allergy (Verified 02/15/22 10:14) Stearns/Rash latex Allergy (Verified 02/15/22 10:14) Stearns/Rash metformin Allergy (Verified 02/15/22 10:14) Stearns/Rash sulfamethoxazole [From Bactrim] Allergy (Verified 02/15/22 10:14) Swelling Stearns/Rash trimethoprim [From Bactrim] Allergy (Verified 02/15/22 10:14) Swelling Stearns/Rash vancomycin Allergy (Verified 02/15/22 10:14) Hives Stearns/Rash Home Medications: Home Medications Medication Instructions Recorded Confirmed Last Taken Type Nicotine [Habitrol] 14 mg TD QDAY #20 patch 01/31/20 04/03/22 02/13/22 Rx Apixaban [Eliquis] 5 mg PO BID 02/15/22 04/03/22 Unknown History Furosemide [Lasix TAB] 80 mg PO BID 02/15/22 04/03/22 02/14/22 History Potassium Chloride [K-Dur] 20 meq PO QDAY 02/15/22 04/03/22 Unknown History traMADoL [Ultram] 50 mg PO BID PRN 02/15/22 04/03/22 Unknown History Gabapentin 100 mg PO Q8HR 30 Days #90 capsule 02/17/22 04/03/22 Unknown Rx Spironolactone [Aldactone] 50 mg PO QDAY 30 Days #30 tablet 02/17/22 04/03/22 Unknown Rx Active Medications: Generic Name Dose Route Start Last Admin Trade Name Freq PRN Reason Stop Dose Admin Acetaminophen 650 mg 04/02/22 15:00 04/03/22 13:56 Acetaminophen 325 Mg Tab PO 650 mg Q4H PRN Administration Pain MILD(1-3)/Fever >100.5/ARENAS Albuterol 2.5 mg 04/02/22 16:00 Albuterol 2.5 Mg/3 Ml Nebu IH Q4HRT PRN Shortness Of Breath Allopurinol 300 mg 04/03/22 10:00 04/05/22 09:31 Allopurinol 300 Mg Tab PO 300 mg QDAY MICHELLE Administration Apixaban 5 mg 04/02/22 23:45 04/05/22 09:31 Apixaban 5 Mg Tab PO 5 mg Q12HR MICHELLE Administration Furosemide 80 mg 04/03/22 08:30 04/05/22 08:00 Furosemide 40 Mg Tab PO 80 mg BID@0800,2000 MICHELLE Administration Gabapentin 100 mg 04/02/22 22:00 04/05/22 05:46 Gabapentin 100 Mg Cap PO 100 mg Q8HR MICHELLE Administration Ceftriaxone Sodium 2 gm in 100 mls @ 200 mls/hr 04/03/22 12:00 04/05/22 09:31 Rocephin/Ns 2 Gm/100 Ml IV 200 mls/hr Q12HR MICHELLE Administration Protocol Linezolid 600 mg 04/03/22 12:00 04/05/22 09:30 Linezolid 600 Mg Tab PO 600 mg Q12HR MICHELLE Administration Protocol Nicotine 14 mg 04/03/22 10:00 04/05/22 09:30 Nicotine 14 Mg/24 Hr Patch TD 14 mg QDAY MICHELLE Administration Ondansetron HCl 4 mg 04/02/22 15:00 Ondansetron 4 Mg/2 Ml Inj IV Q8H PRN Nausea And Vomiting Potassium Chloride 20 meq 04/03/22 10:00 04/05/22 09:31 Potassium Chloride Er 20 Meq Tab PO 20 meq QDAY MICHELLE Administration Sodium Chloride 10 ml 04/02/22 22:00 04/05/22 09:30 Sodium Chloride 0.9% 10 Ml Flush Syringe IV 10 ml BID MICHELLE Administration Sodium Chloride 10 ml 04/02/22 15:00 Sodium Chloride 0.9% 10 Ml Flush Syringe IV PRN PRN LINE FLUSH Spironolactone 50 mg 04/03/22 10:00 04/05/22 09:31 Spironolactone 50 Mg Tab PO 50 mg QDAY MICHELLE Administration
[2022-04-05 09:58] LABS: Alanine Aminotransferase 7 units/L (7-56); BUN/Creatinine Ratio 17; Blood Urea Nitrogen 15 mg/dL (9-20); Calcium 8.6 mg/dL (8.4-10.2); Hemolysis Index 46
--- NOTE | 2022-04-05 11:36 | Progress Note ---
Assessment and Plan Assessment and plan: 31 YO Male with Super Morbid Obesity, BMI 77, diastolic CHF, Chronic respiratory Failure on 2L Home Oxygen, Obesity Hypoventilation Syndrome, DM, Asthma, ongoing tobacco smoking, chronic lymphedema, GERD, DVT on therapeutic anticoagulation with Eliquis is independent of ADLs does not need any walking, lives with his mother aid presents to ED for sudden onset body aches, fever, chills, dry cough, weakness, pain to his lower abdomen over the past 3 days with persistently worsening symptoms and is concerned about having COVID-19 infection. Patient acknowledges fever to 101.2 F, dry cough. Patient called EMS to go to ED. Patient found to have a pulse oximetry of 88% on room air which is consistent with acute hypoxemic respiratory failure. Patient also found to have sepsis with lactic acidosis and leukocytosis. Patient admitted to medical floor and initiated on coronavirus protocol as well as sepsis protocol . Patient found to have significant leukocytosis. Hematology service consulted in ED prior to my evaluation. Patient denies chest pain, palpitations, , skin rash, or recent ill contacts, or known exposure to COVID-19. Prior admission on 02/14/2022 reviewed. (1) Sepsis Current Visit: Yes Status: Acute Plan to address problem: Presented with fever, malaise chills, severe leukocytosis, WBC 69, lactic acid 2.7, creatinine 1.5, elevated procalcitonin meeting criteria for sepsis. Etiology is unclear. Tested negative for COVID. No focal symptoms other than dry cough. No changes of intertrigo or panniculitis under abdominal wall folds. Blood cultures negative to date. Source of sepsis remains unclear. Placed on sepsis protocol: Chest x-ray, CBC, CMP, supplemental oxygen, pulse oximetry, IV antibiotic therapy, monitor fluid balance, serial lactic acid level, maintain mean arterial pressure greater than equal 65, blood culture. Patient feeling much improvement of his presenting symptoms. Fever, chills, malaise unresolved. Leukocytosis improving. Started empiric antibiotic therapy with Zosyn changed to cefepime and added Zyvox on 04/03 by ID. Transitioning to oral antibiotics: P.o. Keflex 1 g 4 times daily + linezolid 600 mg twice daily x5 days. If patient's leukocytosis continues to improve once on oral antibiotics, patient can possibly discharge home tomorrow. (2) rule out 2019 novel coronavirus infectionruled out Current Visit: Yes Status: Acute Plan to address problem: (3) Obesity hypoventilation syndrome Current Visit: Yes Status: Acute Plan to address problem: Balanced diet, increase physical activity discharge, outpatient pulmonary follow-up for sleep study. (4) CHF (congestive heart failure) Current Visit: No Status: Chronic Qualifiers: Heart failure chronicity: acute Plan to address problem: Strict I/O, monitoring output every shift, daily weight, afterload reduction, diuretic therapy with Lasix, blood pressure control, supplemental oxygen, pulse oximetry. (5) GERD (gastroesophageal reflux disease) Current Visit: No Status: Chronic Qualifiers: Esophagitis presence: without esophagitis Qualified Code(s): K21.9 - Gastro-esophageal reflux disease without esophagitis Plan to address problem: PPI therapy, supportive care (6) Lymphedema, chronic due to severe obesity, stable Current Visit: No Status: Chronic Plan to address problem: Chronic, supportive care. 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 (8) Leukocytosis, severeimproving Current Visit: Yes Status: Acute Plan to address problem: Initial WBC 69 and today 27, rapidly improving suggestive of leukemoid reaction. Oncology service consulted. Unable to perform CT abdomen due to BMI 77. Clinical improved. Oncology agrees that no indication for urgent CT study, however needs to be followed by oncology after discharge. (9) Acute and chronic respiratory failureresolved Current Visit: Yes Status: Acute Qualifiers: Respiratory failure complication: hypoxia Qualified Code(s): J96.21 - Acute and chronic respiratory failure with hypoxia Plan to address problem: Supplemental oxygen, pulse oximetry, nebulizer therapy, chest x-ray, noninvasive positive pressure ventilation as clinically indicated. (10) DIXIE, resolved #Morbid obesity #Weight loss counseling #Exercise counseling - BMI 77.0 - Counseled patient on the importance of weight loss, incorporating exercise, and dietary changes (lean meats, fresh fruits and vegetables, and water intake). Patient expresses understanding. - Time: +15 min #Discharge planning - Patient is pending improvement of leukocytosis while on oral antibiotics - Case management has been made aware. - Discharge is tentatively 24-48 hours. Disposition Plan: Possible discharge home tomorrow Total Time Spent with Patient (Minutes): 45 minutes History Interval history: No acute events overnight. Hospitalist Physical - Constitutional Vitals: Temp Pulse Resp BP Pulse Ox 97.2 F L 75 18 118/58 96 04/05/22 04:27 04/05/22 04:27 04/05/22 04:27 04/05/22 04:27 04/05/22 04:27 General appearance: Present: no acute distress, well-nourished, obese (Super obese, BMI 77) - EENT Eyes: Present: PERRL, EOM intact ENT: hearing intact, clear oral mucosa, dentition normal - Neck Neck: Present: supple, normal ROM - Respiratory Respiratory effort: normal Respiratory: bilateral: CTA - Cardiovascular Rhythm: regular Heart Sounds: Present: S1 & S2 - Extremities Extremities: no ischemia, pulses intact, pulses symmetrical, No edema, normal temperature, normal color Peripheral Pulses: within normal limits - Abdominal General gastrointestinal: soft, non-tender, non-distended, normal bowel sounds - Integumentary Integumentary: Present: clear, warm, dry - Psychiatric Psychiatric: appropriate mood/affect, intact judgment & insight, memory intact, cooperative - Neurologic Neurologic: CNII-XII intact, moves all extremities - Allied Health Allied health notes reviewed: nursing HEART Score - HEART Score Troponin: Troponin T < 0.010 ng/mL (0.00-0.029) 04/02/22 09:35 Results - Labs CBC & Chem 7: 04/05/22 08:02 04/05/22 08:02 Labs: Laboratory Last Values WBC 24.3 K/mm3 (4.5-11.0) H 04/05/22 08:02 RBC 4.45 M/mm3 (3.65-5.03) 04/05/22 08:02 Hgb 11.4 gm/dl (11.8-15.2) L 04/05/22 08:02 Hct 37.1 % (35.5-45.6) 04/05/22 08:02 MCV 83 fl (84-94) L 04/05/22 08:02 MCH 26 pg (28-32) L 04/05/22 08:02 MCHC 31 % (32-34) L 04/05/22 08:02 RDW 22.0 % (13.2-15.2) H 04/05/22 08:02 Plt Count 164 K/mm3 (140-440) 04/05/22 08:02 Add Manual Diff Complete 04/04/22 04:42 Total Counted 100 04/04/22 04:42 Seg Neutrophils % Strap Making Machine Operator 04/02/22 09:35 Seg Neuts % (Manual) 76.0 % (40.0-70.0) H 04/04/22 04:42 Band Neutrophils % 0 % 04/04/22 04:42 Lymphocytes % (Manual) 11.0 % (13.4-35.0) L 04/04/22 04:42 Reactive Lymphs % (Man) 0 % 04/04/22 04:42 Monocytes % (Manual) 12.0 % (0.0-7.3) H 04/04/22 04:42 Eosinophils % (Manual) 1.0 % (0.0-4.3) 04/04/22 04:42 Basophils % (Manual) 0 % (0.0-1.8) 04/04/22 04:42 Metamyelocytes % 0 % 04/04/22 04:42 Myelocytes % 0 % 04/04/22 04:42 Promyelocytes % 0 % 04/04/22 04:42 Blast Cells % 0 % 04/04/22 04:42 Nucleated RBC % Not Reportable 04/04/22 04:42 Seg Neutrophils # Man 20.8 K/mm3 (1.8-7.7) H 04/04/22 04:42 Band Neutrophils # 0.0 K/mm3 04/04/22 04:42 Lymphocytes # (Manual) 3.0 K/mm3 (1.2-5.4) 04/04/22 04:42 Abs React Lymphs (Man) 0.0 K/mm3 04/04/22 04:42 Monocytes # (Manual) 3.3 K/mm3 (0.0-0.8) H 04/04/22 04:42 Eosinophils # (Manual) 0.3 K/mm3 (0.0-0.4) 04/04/22 04:42 Basophils # (Manual) 0.0 K/mm3 (0.0-0.1) 04/04/22 04:42 Metamyelocytes # 0.0 K/mm3 04/04/22 04:42 Myelocytes # 0.0 K/mm3 04/04/22 04:42 Promyelocytes # 0.0 K/mm3 04/04/22 04:42 Blast Cells # 0.0 K/mm3 04/04/22 04:42 WBC Morphology Not Reportable 04/04/22 04:42 Hypersegmented Neuts Not Reportable 04/04/22 04:42 Hyposegmented Neuts Not Reportable 04/04/22 04:42 Hypogranular Neuts Not Reportable 04/04/22 04:42 Smudge Cells Not Reportable 04/04/22 04:42 Toxic Granulation Not Reportable 04/04/22 04:42 Toxic Vacuolation Not Reportable 04/04/22 04:42 Dohle Bodies Not Reportable 04/04/22 04:42 Pelger-Huet Anomaly Not Reportable 04/04/22 04:42 Noa Rods Not Reportable 04/04/22 04:42 Platelet Estimate Consistent w auto 04/04/22 04:42 Clumped Platelets Not Reportable 04/04/22 04:42 Plt Clumps, EDTA Not Reportable 04/04/22 04:42 Large Platelets Not Reportable 04/04/22 04:42 Giant Platelets Not Reportable 04/04/22 04:42 Platelet Satelliting Not Reportable 04/04/22 04:42 Plt Morphology Comment Not Reportable 04/04/22 04:42 RBC Morphology Not Reportable 04/04/22 04:42 Dimorphic RBCs Not Reportable 04/04/22 04:42 Polychromasia Not Reportable 04/04/22 04:42 Hypochromasia 1+ 04/04/22 04:42 Poikilocytosis Not Reportable 04/04/22 04:42 Anisocytosis 1+ 04/04/22 04:42 Microcytosis Not Reportable 04/04/22 04:42 Macrocytosis Not Reportable 04/04/22 04:42 Spherocytes Not Reportable 04/04/22 04:42 Pappenheimer Bodies Not Reportable 04/04/22 04:42 Sickle Cells Not Reportable 04/04/22 04:42 Target Cells Not Reportable 04/04/22 04:42 Tear Drop Cells Not Reportable 04/04/22 04:42 Ovalocytes Not Reportable 04/04/22 04:42 Helmet Cells Not Reportable 04/04/22 04:42 [place] Bodies Not Reportable 04/04/22 04:42 [place] Rings Not Reportable 04/04/22 04:42 [place] Cells Not Reportable 04/04/22 04:42 Bite Cells Not Reportable 04/04/22 04:42 Crenated Cell Not Reportable 04/04/22 04:42 Elliptocytes Not Reportable 04/04/22 04:42 Acanthocytes (Spur) Not Reportable 04/04/22 04:42 Rouleaux Not Reportable 04/04/22 04:42 Hemoglobin C Crystals Not Reportable 04/04/22 04:42 Schistocytes Not Reportable 04/04/22 04:42 Malaria parasites Not Reportable 04/04/22 04:42 Cuco Bodies Not Reportable 04/04/22 04:42 Hem Pathologist Commnt No 04/04/22 04:42 PT 17.2 Sec. (12.2-14.9) H 04/02/22 09:35 INR 1.22 (0.87-1.13) H 04/02/22 09:35 APTT 29.5 Sec. (24.2-36.6) 04/02/22 09:35 D-Dimer 271.75 ng/mlDDU (0-234) H 04/02/22 13:35 D-Dimer 280.50 ng/mlDDU (0-234) H 04/02/22 13:35 ABG pH 7.447 pH Units (7.350-7.450) 04/02/22 Unknown ABG pCO2 40.4 mm Hg 04/02/22 Unknown ABG pO2 75.6 mm Hg (80.0-90.0) L 04/02/22 Unknown ABG HCO3 27.2 mmol/L (20.0-26.0) H 04/02/22 Unknown ABG O2 Saturation 96.9 % (95.0-99.0) 04/02/22 Unknown ABG O2 Content 15.1 (0.0-44) 04/02/22 Unknown ABG Base Excess 3.0 mmol/L (-2.0-3.0) 04/02/22 Unknown ABG Hemoglobin 11.5 gm/dl (14.0-18.0) L 04/02/22 Unknown ABG Carboxyhemoglobin 3.5 % (0.0-5.0) 04/02/22 Unknown ABG Methemoglobin 0.5 % (0.0-1.5) 04/02/22 Unknown Oxyhemoglobin 93.0 % (95.0-99.0) L 04/02/22 Unknown FiO2 36 % 04/02/22 Unknown Sodium 138 mmol/L (137-145) 04/05/22 08:02 Potassium 5.1 mmol/L (3.6-5.0) H D 04/05/22 08:02 Chloride 94.6 mmol/L (98-107) L 04/05/22 08:02 Carbon Dioxide 29 mmol/L (22-30) 04/05/22 08:02 Anion Gap 20 mmol/L 04/05/22 08:02 BUN 15 mg/dL (9-20) 04/05/22 08:02 Creatinine 0.9 mg/dL (0.8-1.3) 04/05/22 08:02 Estimated GFR > 60 ml/min 04/05/22 08:02 BUN/Creatinine Ratio 17 % 04/05/22 08:02 Glucose 105 mg/dL (75-100) H 04/05/22 08:02 POC Glucose 118 mg/dL (70-105) H 04/05/22 07:57 Lactic Acid 0.70 mmol/L (0.7-2.0) 04/03/22 07:37 Uric Acid 10.5 mg/dL (3.5-7.6) H 04/02/22 16:22 Calcium 8.6 mg/dL (8.4-10.2) 04/05/22 08:02 Total Bilirubin 0.40 mg/dL (0.1-1.2) 04/05/22 08:02 AST 12 units/L (5-40) 04/05/22 08:02 ALT 7 units/L (7-56) 04/05/22 08:02 Alkaline Phosphatase 108 units/L (35-129) 04/05/22 08:02 Lactate Dehydrogenase 423 units/L (91-180) H 04/02/22 13:35 Troponin T < 0.010 ng/mL (0.00-0.029) 04/02/22 09:35 C-Reactive Protein 7.80 mg/dL (0.00-1.30) H 04/05/22 08:02 NT-Pro-B Natriuret Pep 1445 pg/mL (0-450) H 04/02/22 09:35 Total Protein 6.1 g/dL (6.3-8.2) L 04/05/22 08:02 Albumin 4.0 g/dL (3.9-5) 04/05/22 08:02 Albumin/Globulin Ratio 1.9 % 04/05/22 08:02 Procalcitonin 6.75 ng/mL (<0.15) 04/02/22 13:35 Urine Color Yellow (Yellow) 04/02/22 12:14 Urine Turbidity Clear (Clear) 04/02/22 12:14 Urine pH 5.0 (5.0-7.0) 04/02/22 12:14 Ur Specific [place] 1.012 (1.003-1.030) 04/02/22 12:14 Urine Protein <15 mg/dl mg/dL (Negative) 04/02/22 12:14 Urine Glucose (UA) Neg mg/dL (Negative) 04/02/22 12:14 Urine Ketones Neg mg/dL (Negative) 04/02/22 12:14 Urine Blood Neg (Negative) 04/02/22 12:14 Urine Nitrite Neg (Negative) 04/02/22 12:14 Urine Bilirubin Neg (Negative) 04/02/22 12:14 Urine Urobilinogen < 2 mg/dL (<2.0) 04/02/22 12:14 Ur Leukocyte Esterase Neg (Negative) 04/02/22 12:14 Urine WBC (Auto) < 1.0 /HPF (0.0-6.0) 04/02/22 12:14 Urine RBC (Auto) < 1.0 /HPF (0.0-6.0) 04/02/22 12:14 U Epithel Cells (Auto) 1.0 /HPF (0-13.0) 04/02/22 12:14 Urine Bacteria (Auto) 1+ /HPF (Negative) 04/02/22 12:14 Hyaline Casts 1 /LPF 04/02/22 12:14 Granular Casts 7 /LPF 04/02/22 12:14 Urine Mucus Few /HPF 04/02/22 12:14 Nasal Screen MRSA (PCR) Negative (Negative) 04/03/22 23:57 SARS-CoV-2 (PCR) Negative (Negative) 04/02/22 12:14 Blood Type O POSITIVE 04/02/22 16:22 Antibody Screen Negative 04/02/22 16:22 Microbiology: Microbiology 04/02/22 09:35 Peripheral/Venous Blood Culture - Preliminary NO GROWTH AFTER 48 HOURS 04/02/22 09:35 Peripheral/Venous Blood Culture - Preliminary NO GROWTH AFTER 48 HOURS Jones/IV: Voiding Method Urinal Active Medications - Current Medications Current Medications: Generic Name Dose Route Start Last Admin Trade Name Freq PRN Reason Stop Dose Admin Acetaminophen 650 mg 04/02/22 15:00 04/03/22 13:56 Acetaminophen 325 Mg Tab PO 650 mg Q4H PRN Administration Pain MILD(1-3)/Fever >100.5/ARENAS Albuterol 2.5 mg 04/02/22 16:00 Albuterol 2.5 Mg/3 Ml Nebu IH Q4HRT PRN Shortness Of Breath Allopurinol 300 mg 04/03/22 10:00 04/05/22 09:31 Allopurinol 300 Mg Tab PO 300 mg QDAY MICHELLE Administration Apixaban 5 mg 04/02/22 23:45 04/05/22 09:31 Apixaban 5 Mg Tab PO 5 mg Q12HR MICHELLE Administration Furosemide 80 mg 04/03/22 08:30 04/05/22 08:00 Furosemide 40 Mg Tab PO 80 mg BID@0800,2000 MICHELLE Administration Gabapentin 100 mg 04/02/22 22:00 04/05/22 05:46 Gabapentin 100 Mg Cap PO 100 mg Q8HR MICHELLE Administration Ceftriaxone Sodium 2 gm in 100 mls @ 200 mls/hr 04/03/22 12:00 04/05/22 09:31 Rocephin/Ns 2 Gm/100 Ml IV 200 mls/hr Q12HR MICHELLE Administration Protocol Linezolid 600 mg 04/03/22 12:00 04/05/22 09:30 Linezolid 600 Mg Tab PO 600 mg Q12HR MICHELLE Administration Protocol Nicotine 14 mg 04/03/22 10:00 04/05/22 09:30 Nicotine 14 Mg/24 Hr Patch TD 14 mg QDAY MICHELLE Administration Ondansetron HCl 4 mg 04/02/22 15:00 Ondansetron 4 Mg/2 Ml Inj IV Q8H PRN Nausea And Vomiting Potassium Chloride 20 meq 04/03/22 10:00 04/05/22 09:31 Potassium Chloride Er 20 Meq Tab PO 20 meq QDAY MICHELLE Administration Sodium Chloride 10 ml 04/02/22 22:00 04/05/22 09:30 Sodium Chloride 0.9% 10 Ml Flush Syringe IV 10 ml BID MICHELLE Administration Sodium Chloride 10 ml 04/02/22 15:00 Sodium Chloride 0.9% 10 Ml Flush Syringe IV PRN PRN LINE FLUSH Spironolactone 50 mg 04/03/22 10:00 04/05/22 09:31 Spironolactone 50 Mg Tab PO 50 mg QDAY MICHELLE Administration
[2022-04-05 12:04] LABS: Anisocytosis 1+; Band Neutrophils # (Manual) 1.7 K/mm3; Platelet Estimate Consistent w Auto; Total Cells Counted 100
--- NOTE | 2022-04-05 12:13 | Electrocardiograph Report ---
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
[2022-04-05] MEDS ORDERED: cephALEXin 500 MG CAP PO SCH (21:00)
[2022-04-05 21:58] VITALS: BP 127/59
== END 2022-04-05 22:52 | disposition home or self-care (01) | DRG 871 ==
LOC: ED 09:08 → 3A 14:33
PROVIDERS: ADMIT Internal Medicine; ATTEND Student in an Organized Health Care Education/Training Program
DX: A41.9 Sepsis, unspecified organism (principal); J96.21 Acute and chronic respiratory failure with hypoxia; E66.2 Morbid (severe) obesity with alveolar hypoventilation; Z68.45 Body mass index [BMI] 70 or greater, adult; K21.9 Gastro-esophageal reflux disease without esophagitis; I89.0 Lymphedema, not elsewhere classified; E11.9 Type 2 diabetes mellitus without complications; I50.9 Heart failure, unspecified; Z20.822 Contact with and (suspected) exposure to COVID-19; N17.9 Acute kidney failure, unspecified; Z86.718 Personal history of other venous thrombosis and embolism; Z79.01 Long term (current) use of anticoagulants; I50.32 Chronic diastolic (congestive) heart failure; Z79.4 Long term (current) use of insulin
CPT/HCPCS: 36415; 71045; 80048; 80053; 81001; 82140; 82803; 82947; 82962; 83615; 83880; 84145; 84484; 84550; 85007; 85025; 85379; 85610; 85730; 86140; 86850; 86900; 86901; 87040; 87641; 88184; 88185; 93005; 94640; 94760; 96374; 96375; 99291; 99406; G0378; J0696; J1940; J2543; U0003